=== PATIENT | male | born 1940 | race Caucasian/White ===

== ENCOUNTER → 2020-06-07 13:10 | Outpatient (BNVA) | payer MEDICARE, OTHER, SELFPAY | PROVIDERS: PCP Internal Medicine; Visit Provider Internal Medicine | DX: I48.20 Chronic atrial fibrillation, unspecified (principal); Z51.81 Encounter for therapeutic drug level monitoring; Z79.01 Long term (current) use of anticoagulants | CPT/HCPCS: 85610; 99211 ==

== ENCOUNTER → 2020-06-21 10:23 | Outpatient (BNVA) | payer MEDICARE, OTHER, SELFPAY | PROVIDERS: PCP Internal Medicine; Visit Provider Internal Medicine | DX: I48.20 Chronic atrial fibrillation, unspecified (principal); Z51.81 Encounter for therapeutic drug level monitoring; Z79.01 Long term (current) use of anticoagulants | CPT/HCPCS: 85610; 99211 ==

== ENCOUNTER → 2020-06-25 09:52 | Outpatient (BNVA) | payer MEDICARE, OTHER, SELFPAY | PROVIDERS: PCP Internal Medicine; Referring Provider Internal Medicine; Visit Provider Internal Medicine | DX: I48.20 Chronic atrial fibrillation, unspecified (principal); Z51.81 Encounter for therapeutic drug level monitoring; Z79.01 Long term (current) use of anticoagulants | CPT/HCPCS: 85610; 99211 ==

== ENCOUNTER → 2020-07-02 11:29 | Outpatient (BNVA) | payer MEDICARE, OTHER, SELFPAY | PROVIDERS: PCP Internal Medicine; Referring Provider Internal Medicine; Visit Provider Internal Medicine | DX: I48.20 Chronic atrial fibrillation, unspecified (principal); Z51.81 Encounter for therapeutic drug level monitoring; Z79.01 Long term (current) use of anticoagulants | CPT/HCPCS: 85610; 99211 ==

== ENCOUNTER → 2020-07-09 11:17 | Outpatient (BNVA) | payer MEDICARE, OTHER, SELFPAY | PROVIDERS: PCP Internal Medicine; Visit Provider Internal Medicine | DX: I48.20 Chronic atrial fibrillation, unspecified (principal); Z51.81 Encounter for therapeutic drug level monitoring; Z79.01 Long term (current) use of anticoagulants | CPT/HCPCS: 85610; 99211 ==

== ENCOUNTER → 2020-07-23 11:39 | Outpatient (BNVA) | payer MEDICARE, SELFPAY | PROVIDERS: PCP Internal Medicine; Referring Provider Internal Medicine; Visit Provider Internal Medicine | DX: I48.20 Chronic atrial fibrillation, unspecified (principal); Z51.81 Encounter for therapeutic drug level monitoring; Z79.01 Long term (current) use of anticoagulants | CPT/HCPCS: 85610; 99211 ==

== ENCOUNTER → 2020-08-06 10:56 | Outpatient (BNVA) | payer MEDICARE, SELFPAY | PROVIDERS: PCP Internal Medicine; Visit Provider Internal Medicine | DX: I48.91 Unspecified atrial fibrillation (principal); Z51.81 Encounter for therapeutic drug level monitoring; Z79.01 Long term (current) use of anticoagulants | CPT/HCPCS: 85610; 99211 ==

== ENCOUNTER → 2020-08-13 11:26 | Outpatient (BNVA) | payer MEDICARE, OTHER, SELFPAY | PROVIDERS: PCP Internal Medicine; Visit Provider Internal Medicine | DX: I48.0 Paroxysmal atrial fibrillation (principal); Z51.81 Encounter for therapeutic drug level monitoring; Z79.01 Long term (current) use of anticoagulants | CPT/HCPCS: 85610; 99211 ==

== ENCOUNTER → 2020-08-20 11:42 | Outpatient (BNVA) | payer MEDICARE, OTHER, SELFPAY | PROVIDERS: PCP Internal Medicine; Visit Provider Internal Medicine | DX: I48.0 Paroxysmal atrial fibrillation (principal); Z51.81 Encounter for therapeutic drug level monitoring; Z79.01 Long term (current) use of anticoagulants | CPT/HCPCS: 85610; 99211 ==

== ENCOUNTER → 2020-08-30 11:29 | Outpatient (BNVA) | payer MEDICARE, OTHER, SELFPAY | PROVIDERS: PCP Internal Medicine; Visit Provider Internal Medicine | DX: I48.0 Paroxysmal atrial fibrillation (principal); Z51.81 Encounter for therapeutic drug level monitoring; Z79.01 Long term (current) use of anticoagulants | CPT/HCPCS: 85610; 99211 ==

== ENCOUNTER → 2020-09-10 11:19 | Outpatient (BNVA) | payer MEDICARE, SELFPAY | PROVIDERS: PCP Internal Medicine; Visit Provider Internal Medicine | DX: I48.91 Unspecified atrial fibrillation (principal); Z79.01 Long term (current) use of anticoagulants; Z51.81 Encounter for therapeutic drug level monitoring | CPT/HCPCS: 85610; 99211 ==

== ENCOUNTER → 2020-09-24 11:12 | Outpatient (BNVA) | payer MEDICARE, SELFPAY | PROVIDERS: PCP Internal Medicine; Visit Provider Internal Medicine | DX: I48.0 Paroxysmal atrial fibrillation (principal); Z79.01 Long term (current) use of anticoagulants; Z51.81 Encounter for therapeutic drug level monitoring | CPT/HCPCS: 85610; 99211 ==

== ENCOUNTER → 2020-10-08 11:11 | Outpatient (BNVA) | payer MEDICARE, SELFPAY | PROVIDERS: PCP Internal Medicine; Visit Provider Internal Medicine | DX: I48.0 Paroxysmal atrial fibrillation (principal); Z51.81 Encounter for therapeutic drug level monitoring; Z79.01 Long term (current) use of anticoagulants | CPT/HCPCS: 85610; 99211 ==

== ENCOUNTER → 2020-10-19 11:25 | Outpatient (BNVA) | payer MEDICARE, SELFPAY | PROVIDERS: PCP Internal Medicine; Visit Provider Internal Medicine | DX: I48.0 Paroxysmal atrial fibrillation (principal); Z51.81 Encounter for therapeutic drug level monitoring; Z79.01 Long term (current) use of anticoagulants | CPT/HCPCS: 85610; 99211 ==

== ENCOUNTER → 2020-11-01 11:30 | Outpatient (BNVA) | payer MEDICARE, SELFPAY | PROVIDERS: PCP Internal Medicine; Visit Provider Internal Medicine | DX: I48.0 Paroxysmal atrial fibrillation (principal); Z51.81 Encounter for therapeutic drug level monitoring; Z79.01 Long term (current) use of anticoagulants | CPT/HCPCS: 85610; 99211 ==

== ENCOUNTER → 2020-11-15 11:05 | Outpatient (BNVA) | payer MEDICARE, SELFPAY | PROVIDERS: PCP Internal Medicine; Visit Provider Internal Medicine | DX: I48.0 Paroxysmal atrial fibrillation (principal); Z51.81 Encounter for therapeutic drug level monitoring; Z79.01 Long term (current) use of anticoagulants | CPT/HCPCS: 85610; 99211 ==

== ENCOUNTER → 2020-11-27 11:08 | Outpatient (BNVA) | payer MEDICARE, SELFPAY | PROVIDERS: PCP Internal Medicine; Visit Provider Internal Medicine | DX: I48.0 Paroxysmal atrial fibrillation (principal); Z51.81 Encounter for therapeutic drug level monitoring; Z79.01 Long term (current) use of anticoagulants | CPT/HCPCS: 85610; 99211 ==

== ENCOUNTER → 2020-12-03 10:31 | Outpatient (BNVA) | payer MEDICARE, SELFPAY | PROVIDERS: PCP Internal Medicine; Visit Provider Internal Medicine | DX: I48.0 Paroxysmal atrial fibrillation (principal); Z79.01 Long term (current) use of anticoagulants; Z51.81 Encounter for therapeutic drug level monitoring | CPT/HCPCS: 85610; 99211 ==

== ENCOUNTER → 2020-12-11 10:20 | Outpatient (BNVA) | payer MEDICARE, SELFPAY | PROVIDERS: PCP Internal Medicine; Visit Provider Internal Medicine | DX: I48.0 Paroxysmal atrial fibrillation (principal); Z79.01 Long term (current) use of anticoagulants; Z51.81 Encounter for therapeutic drug level monitoring | CPT/HCPCS: 85610; 99211 ==

== ENCOUNTER 2020-12-13 13:11 | Outpatient (REF) | payer MEDICARE, SELFPAY ==
[2020-12-13 13:48] LABS: MANUAL DIFF FLAG NO
[2020-12-13 13:55] LABS: Basophils Absolute Auto 0.1 X10*3/uL (0.0-0.2); Basophils Percent Auto 0.6 % (0-2); Eosinophils Absolute Auto 0.5 X10*3/uL (0.0-0.4); Eosinophils Percent Auto 5.5 % (0-4); Hematocrit 32.6 % (42-52); Hemoglobin 10.5 g/dl (14.0-18.0); Imm Gran Abs Auto 0.03 X10*3/uL (0.00-0.03); Imm Gran Pct Auto 0.3 % (0.0-0.4); Immature Retic Fraction 8.8 % (2.3-13.4); Lymphocytes Absolute Auto 2.6 X10*3/uL (1.2-4.9); Lymphocytes Percent Auto 27.9 % (20-40); Mean Corpuscular HGB Conc 32.2 g/dl (31.0-36.0); Mean Corpuscular Hemoglobin 29.8 pg (27.0-33.0); Mean Corpuscular Volume 92.6 fL (80-98); Mean Platelet Volume 11.2 fL (9.4-12.4); Monocytes Absolute Auto 0.8 X10*3/uL (0.1-1.2); Monocytes Percent Auto 8.3 % (2-11); Neutrophils Absolute Auto 5.3 X10*3/uL (2.0-8.3); Neutrophils Percent Auto 57.4 % (45-73); Platelet Count 250 X10*3/uL (160-400); Red Blood Count 3.52 X10*6/uL (4.60-5.80); Red Cell Distribution Width 13.4 % (11.0-16.0); Retic HGB Equivalent 35.5 pg (30.0-35.0); Reticulocyte Percent 1.4 % (0.5-1.8); White Blood Count 9.2 X10*3/uL (4.8-10.8)
[2020-12-13 14:24] LABS: Alanine Aminotransferase 62 U/L (0-40); Albumin Level 3.9 g/dL (3.5-5.0); Alkaline Phosphatase 72 U/L (39-117); Anion Gap 12 (12-20); Aspartate Amino Transferase 50 U/L (5-37); Bilirubin Total 0.4 mg/dL (0.0-1.0); Blood Urea Nitrogen 18 mg/dL (9-16); Calcium 8.5 mg/dL (8.4-10.2); Carbon Dioxide 23 mmol/L (22-29); Chloride 109 mmol/L (96-108); Cholesterol 91 mg/dL; Estimated Glomerular Filt Rate > 60; Glucose Random 123 mg/dL (60-115); HDL Cholesterol 30 mg/dL; Iron 49 mcg/dL (45-160); LDL Cholesterol Calculated 34 mg/dl; Percent Iron Saturation 21 % (15-50); Potassium 4.2 mmol/L (3.3-5.1); Sodium 140 mmol/L (135-145); Total Iron Binding Capacity 231 mcg/dL (228-428); Total Protein 6.8 g/dL (6.5-8.0); Triglycerides 137 mg/dL; Unsaturated Iron Binding 182 ug/dL
[2020-12-13 14:40] LABS: Ferritin 324 ng/mL (20-250); Free T4 (Free Thyroxine) 0.93 ng/dL (0.71-1.85); Thyroid Stimulating Hormone 0.96 uIU/mL (0.32-4.0)
[2020-12-13 14:53] LABS: Folate > 20.0 ng/mL (> or = 4.0); Vitamin B12 393 pg/mL (200-900)
== END 2020-12-13 13:12 | disposition home or self-care (01) ==
LOC: HO.LAB 13:11
PROVIDERS: PCP Internal Medicine; Visit Provider Internal Medicine
DX: I10 Essential (primary) hypertension (principal); I48.0 Paroxysmal atrial fibrillation; E78.00 Pure hypercholesterolemia, unspecified
CPT/HCPCS: 36415; 80053; 80061; 82607; 82728; 82746; 83540; 84439; 84443; 85025; 85045

== ENCOUNTER → 2020-12-25 10:47 | Outpatient (BNVA) | payer MEDICARE, SELFPAY | PROVIDERS: PCP Internal Medicine; Visit Provider Internal Medicine | DX: I48.0 Paroxysmal atrial fibrillation (principal); Z51.81 Encounter for therapeutic drug level monitoring; Z79.01 Long term (current) use of anticoagulants | CPT/HCPCS: 85610; 99211 ==

== ENCOUNTER → 2021-01-14 11:21 | Outpatient (BNVA) | payer MEDICARE, SELFPAY | PROVIDERS: PCP Internal Medicine; Visit Provider Internal Medicine | DX: I48.0 Paroxysmal atrial fibrillation (principal); Z51.81 Encounter for therapeutic drug level monitoring; Z79.01 Long term (current) use of anticoagulants | CPT/HCPCS: 85610; 99211 ==

== ENCOUNTER 2021-01-15 08:49 | Outpatient (REF) | payer MEDICARE, SELFPAY ==
--- NOTE | ~2021-01-15 | US_ITS ---
EXAMINATION: US ABDOMEN COMPLETE CLINICAL INFORMATION: Other specific abnormal findings of blood chemistry. COMPARISON: Ultrasound aorta 12/28/2019. X-ray abdomen KUB 12/12/2016. Ultrasound abdomen 09/25/2015 and 03/07/2010. CT abdomen and pelvis 12/09/2013. TECHNIQUE: Real-time imaging of the abdominal viscera. FINDINGS: PANCREAS: Not well visualized due to bowel gas ABDOMINAL AORTA: The upper and mid abdominal aorta is non-well visualized due to bowel gas. There is a distal abdominal aortic aneurysm that measures 4.5 x 4.6 cm in AP and transverse dimension not appreciably changed in size. There is dilatation of both iliac arteries measuring 1.7 x 2 cm on the left and 0.9 x 2 cm on the right. INFERIOR VENA CAVA: Not well visualized due to bowel gas LIVER: The liver is not well visualized. Particular, the left lobe of the liver is not well visualized. The liver is normal in size. The liver contour is normal. No focal hepatic lesion. There is no intrahepatic biliary duct dilatation seen. GALLBLADDER: Not well-visualized. No gallstones are seen. COMMON BILE DUCT: Normal in caliber measuring 0.2 cm in diameter. RIGHT KIDNEY: Normal. No hydronephrosis. No renal calculi or focal parenchymal lesions. The kidney measures 9.0 cm in maximum dimension. LEFT KIDNEY: Not well visualized.. No hydronephrosis. No renal calculi or focal parenchymal lesions. The kidney measures 10.8 cm in maximum dimension. SPLEEN: Normal. The spleen measures 10.4 cm in maximum dimension. FREE FLUID: None. US/US abdomen complete IMPRESSION: Very limited exam. Only the right kidney and spleen are well visualized. 4.5 x 4.6 cm aneurysm of the distal abdominal aorta not appreciably changed from most recent exam November 2019.
== END 2021-01-15 08:50 | disposition home or self-care (01) ==
LOC: HO.HMGCX 08:49
PROVIDERS: Visit Provider Internal Medicine
DX: R94.5 Abnormal results of liver function studies (principal); R79.89 Other specified abnormal findings of blood chemistry
CPT/HCPCS: 76700

== ENCOUNTER → 2021-02-06 10:20 | Outpatient (BNVA) | payer MEDICARE, SELFPAY | PROVIDERS: PCP Internal Medicine; Visit Provider Internal Medicine | DX: I48.0 Paroxysmal atrial fibrillation (principal); Z51.81 Encounter for therapeutic drug level monitoring; Z79.01 Long term (current) use of anticoagulants | CPT/HCPCS: 85610; 99211 ==

== ENCOUNTER → 2021-02-27 10:54 | Outpatient (BNVA) | payer MEDICARE, SELFPAY | PROVIDERS: PCP Internal Medicine; Visit Provider Internal Medicine | DX: I48.0 Paroxysmal atrial fibrillation (principal); Z51.81 Encounter for therapeutic drug level monitoring; Z79.01 Long term (current) use of anticoagulants | CPT/HCPCS: 85610; 99211 ==

== ENCOUNTER → 2021-03-07 10:49 | Outpatient (BNVA) | payer MEDICARE, SELFPAY | PROVIDERS: PCP Internal Medicine; Visit Provider Internal Medicine | DX: I48.0 Paroxysmal atrial fibrillation (principal); Z51.81 Encounter for therapeutic drug level monitoring; Z79.01 Long term (current) use of anticoagulants | CPT/HCPCS: 85610; 99211 ==

== ENCOUNTER → 2021-03-14 11:49 | Outpatient (BNVA) | payer MEDICARE, SELFPAY | PROVIDERS: PCP Internal Medicine; Visit Provider Internal Medicine | DX: I48.0 Paroxysmal atrial fibrillation (principal); Z51.81 Encounter for therapeutic drug level monitoring; Z79.01 Long term (current) use of anticoagulants | CPT/HCPCS: 85610; 99211 ==

== ENCOUNTER → 2021-03-28 11:35 | Outpatient (BNVA) | payer MEDICARE, SELFPAY | PROVIDERS: PCP Internal Medicine; Visit Provider Internal Medicine | DX: I48.0 Paroxysmal atrial fibrillation (principal); Z79.01 Long term (current) use of anticoagulants; Z51.81 Encounter for therapeutic drug level monitoring | CPT/HCPCS: 85610; 99212 ==

== ENCOUNTER → 2021-04-02 10:53 | Outpatient (BNVA) | payer MEDICARE, SELFPAY | PROVIDERS: PCP Internal Medicine; Visit Provider Internal Medicine | DX: I48.0 Paroxysmal atrial fibrillation (principal); Z51.81 Encounter for therapeutic drug level monitoring; Z79.01 Long term (current) use of anticoagulants | CPT/HCPCS: 85610; 99211 ==

== ENCOUNTER → 2021-04-09 10:44 | Outpatient (BNVA) | payer MEDICARE, SELFPAY | PROVIDERS: PCP Internal Medicine; Visit Provider Internal Medicine | DX: I48.0 Paroxysmal atrial fibrillation (principal); Z79.01 Long term (current) use of anticoagulants; Z51.81 Encounter for therapeutic drug level monitoring | CPT/HCPCS: 85610; 99211 ==

== ENCOUNTER → 2021-04-18 10:31 | Outpatient (BNVA) | payer MEDICARE, SELFPAY | PROVIDERS: PCP Internal Medicine; Visit Provider Internal Medicine | DX: I48.0 Paroxysmal atrial fibrillation (principal); Z51.81 Encounter for therapeutic drug level monitoring; Z79.01 Long term (current) use of anticoagulants | CPT/HCPCS: 85610; 99211 ==

== ENCOUNTER → 2021-04-25 10:24 | Outpatient (BNVA) | payer MEDICARE, SELFPAY | PROVIDERS: PCP Internal Medicine; Visit Provider Internal Medicine | DX: I48.0 Paroxysmal atrial fibrillation (principal); Z51.81 Encounter for therapeutic drug level monitoring; Z79.01 Long term (current) use of anticoagulants | CPT/HCPCS: 85610; 99211 ==

== ENCOUNTER → 2021-05-07 11:16 | Outpatient (BNVA) | payer MEDICARE, SELFPAY | PROVIDERS: PCP Internal Medicine; Visit Provider Internal Medicine | DX: I48.0 Paroxysmal atrial fibrillation (principal); Z51.81 Encounter for therapeutic drug level monitoring; Z79.01 Long term (current) use of anticoagulants | CPT/HCPCS: 85610; 99211 ==

== ENCOUNTER → 2021-06-05 11:48 | Outpatient (BNVA) | payer MEDICARE, SELFPAY | PROVIDERS: PCP Internal Medicine; Visit Provider Internal Medicine | DX: I48.0 Paroxysmal atrial fibrillation (principal); Z51.81 Encounter for therapeutic drug level monitoring; Z79.01 Long term (current) use of anticoagulants | CPT/HCPCS: 85610; 99211 ==

== ENCOUNTER → 2021-06-13 10:22 | Outpatient (BNVA) | payer MEDICARE, SELFPAY | PROVIDERS: PCP Internal Medicine; Visit Provider Internal Medicine | DX: I48.0 Paroxysmal atrial fibrillation (principal); Z51.81 Encounter for therapeutic drug level monitoring; Z79.01 Long term (current) use of anticoagulants | CPT/HCPCS: 85610; 99211 ==

== ENCOUNTER → 2021-06-20 10:23 | Outpatient (BNVA) | payer MEDICARE, SELFPAY | PROVIDERS: PCP Internal Medicine; Visit Provider Internal Medicine | DX: I48.0 Paroxysmal atrial fibrillation (principal); Z51.81 Encounter for therapeutic drug level monitoring; Z79.01 Long term (current) use of anticoagulants | CPT/HCPCS: 85610; 99211 ==

== ENCOUNTER → 2021-06-27 10:20 | Outpatient (BNVA) | payer MEDICARE, SELFPAY | PROVIDERS: PCP Internal Medicine; Visit Provider Internal Medicine | DX: I48.0 Paroxysmal atrial fibrillation (principal); Z51.81 Encounter for therapeutic drug level monitoring; Z79.01 Long term (current) use of anticoagulants | CPT/HCPCS: 85610; 99211 ==

== ENCOUNTER → 2021-07-11 11:05 | Outpatient (BNVA) | payer MEDICARE, SELFPAY | PROVIDERS: PCP Internal Medicine; Visit Provider Internal Medicine | DX: I48.0 Paroxysmal atrial fibrillation (principal); Z79.01 Long term (current) use of anticoagulants; Z51.81 Encounter for therapeutic drug level monitoring | CPT/HCPCS: 85610; 99211 ==

== ENCOUNTER 2021-07-17 11:02 | Outpatient (REF) | payer MEDICARE, OTHER, SELFPAY ==
--- NOTE | ~2021-07-17 | XR_ITS ---
EXAMINATION: XR RIBS, LEFT CLINICAL INFORMATION: Chest pain COMPARISON: 07/21/2019 TECHNIQUE: Chest, PA view Left ribs, 3 views FINDINGS: Lungs are well expanded. The patient's chin overlies the lung apices. Mild interstitial prominence in both lungs is a chronic finding. No acute pulmonary abnormality. No consolidation, pleural effusion or pneumothorax. Cardiac silhouette is normal in size. Atherosclerotic aortic arch is uncoiled. Bones are diffusely osteopenic. A few old, healed left rib fractures are noted. Also, there is an acute, mildly displaced fracture of the left lateral sixth rib. There appears to be an old, mild compression fracture of the T11 vertebral body. There appears to be chronic, minimal height loss of several other vertebra in the thoracolumbar spine. Atherosclerotic calcification of the aorta and splenic artery. The patient has a known abdominal aortic aneurysm. On these radiographs, the infrarenal abdominal aorta aneurysm measures up to approximately 5.8 cm transverse diameter, which is larger than the reported size on ultrasound from 12/28/2019. XR/XR ribs LT min 3V w CXR1V IMPRESSION: * There appears to be chronic, mild interstitial lung disease. No acute pulmonary abnormality. * Bones are diffusely osteopenic, and there is old mild compression fracture of the T11 vertebral body. * Acute, mildly displaced fracture of the left lateral sixth rib. * The abdominal aorta aneurysm is larger on these radiographs than reported on ultrasound from 12/28/2019. Therefore, consider follow-up abdominal aorta ultrasound evaluation. If the aneurysm is found to be greater than 5.5 cm on follow-up ultrasound, then recommend referral to a vascular specialist.
[2021-07-17 11:18] LABS: MANUAL DIFF FLAG NO
[2021-07-17 11:55] LABS: Basophils Absolute Auto 0.1 X10*3/uL (0.0-0.2); Basophils Percent Auto 0.5 % (0-2); Eosinophils Absolute Auto 0.2 X10*3/uL (0.0-0.4); Eosinophils Percent Auto 2.3 % (0-4); Hemoglobin 11.4 g/dl (14.0-18.0); Imm Gran Abs Auto 0.03 X10*3/uL (0.00-0.03); Imm Gran Pct Auto 0.3 % (0.0-0.4); Lymphocytes Absolute Auto 1.8 X10*3/uL (1.2-4.9); Lymphocytes Percent Auto 19.1 % (20-40); Mean Corpuscular HGB Conc 33.5 g/dl (31.0-36.0); Mean Corpuscular Volume 92.4 fL (80.0-98.0); Mean Platelet Volume 11.4 fL (9.4-12.4); Monocytes Absolute Auto 0.7 X10*3/uL (0.1-1.2); Monocytes Percent Auto 7.6 % (2-11); Neutrophils Absolute Auto 6.6 x10*3/uL (2.0-8.3); Neutrophils Percent Auto 70.2 % (45-73); Platelet Count 163 X10*3/uL (160-400); Red Blood Count 3.68 X10*6/uL (4.60-5.80); Red Cell Distribution Width 13.8 % (11.0-16.0); White Blood Count 9.4 X10*3/uL (4.8-10.8)
[2021-07-17 12:23] LABS: Alanine Aminotransferase 18 U/L (0-40); Alkaline Phosphatase 74 U/L (39-117); Anion Gap 14 (12-20); Aspartate Amino Transferase 20 U/L (5-37); Bilirubin Total 0.4 mg/dL (0.0-1.0); Blood Urea Nitrogen 22 mg/dL (9-16); Calcium 8.9 mg/dL (8.4-10.2); Carbon Dioxide 27 mmol/L (22-29); Chloride 105 mmol/L (96-108); Cholesterol 104 mg/dL; Estimated Glomerular Filt Rate 54; Glucose Random 106 mg/dL (60-115); HDL Cholesterol 45 mg/dL; LDL Cholesterol Calculated 38 mg/dl; Potassium 3.8 mmol/L (3.3-5.1); Sodium 142 mmol/L (135-145); Total Protein 6.9 g/dL (6.5-8.0); Triglycerides 107 mg/dL
[2021-07-17 12:39] LABS: HBsAGNum1 0.15 S/CO (0.00-0.99); Hepatitis B Surface Antigen Negative (Negative); ~HepC Num1 0.05 S/CO (0.00-0.79); ~Hepatitis C Antibody Nonreactive (Nonreactive)
[2021-07-17 12:41] LABS: Estimated Average Glucose 103 mg/dL; Hemoglobin A1c % 5.2 %
[2021-07-17 12:45] LABS: Thyroid Stimulating Hormone 2.14 uIU/mL (0.32-4.0)
[2021-07-17 12:49] LABS: HBS Num1 0.15 mIU/mL (0-7.99); HBc Num1 0.07 S/CO (0.00-0.79); Hepatitis B Core Antibody Nonreactive (Nonreactive); ~Hepatitis B Surface Antibody NONREACTIVE (Nonreactive)
[2021-07-17 13:27] LABS: Folate 18.8 ng/mL (> or = 4.0); Vitamin B12 509 pg/mL (200-900)
== END 2021-07-17 11:03 | disposition home or self-care (01) ==
LOC: HO.XRAY 11:02
PROVIDERS: PCP Internal Medicine; Visit Provider Internal Medicine
DX: R07.9 Chest pain, unspecified (principal); I48.0 Paroxysmal atrial fibrillation; E78.00 Pure hypercholesterolemia, unspecified; R79.89 Other specified abnormal findings of blood chemistry; I10 Essential (primary) hypertension; I25.10 Atherosclerotic heart disease of native coronary artery without angina pectoris; R94.5 Abnormal results of liver function studies
CPT/HCPCS: 36415; 71101; 80053; 80061; 82607; 82746; 83036; 84443; 85025; 86704; 86706; 86803; 87340

== ENCOUNTER 2021-07-19 12:02 | Emergency (ER) | payer MEDICARE, SELFPAY ==
--- NOTE | ~2021-07-19 | XR_ITS ---
EXAMINATION: XR CHEST CLINICAL INFORMATION: Cough COMPARISON: July 17, 2021 and studies dating back to December 17, 2018 TECHNIQUE: 2 views of the chest were obtained. FINDINGS: No significant acute abnormality is noted involving the heart, lungs, mediastinum, bony thorax or soft tissues. There is some mild chronic wedging of a lower thoracic vertebra. XR/XR chest 2V IMPRESSION: No acute disease.
--- NOTE | ~2021-07-19 | US_ITS ---
EXAMINATION: US RETROPERITONEAL LIMITED (AORTA) CLINICAL INFORMATION: Fall. Dizziness. Evaluate abdominal aortic aneurysm.. COMPARISON: Ultrasound 12/28/2019 TECHNIQUE: Sharma-scale, color Doppler and spectral Doppler evaluation of the abdominal aorta. The study is significantly technically limited secondary to bowel gas. FINDINGS: The proximal and mid portions of the aorta are not visualized. Only the distal, aneurysmal portion of the aorta is visualized. Distal: 5 x 5.2 cm, previously 4.7 x 5 cm The measurements of the common iliac arteries in maximum AP and TRV dimensions are as follows: Right Common Iliac Artery: 1 x 1.8 cm, previously 1 x 1.2 cm Left Common Iliac Artery: 1.1 x 1.7 cm, previously 1.2 x 1 cm. US/US abdominal aortic aneurysm IMPRESSION: Severely limited study. Distal abdominal aortic aneurysm measures 5 x 5.2 cm, previously 4.7 x 5 cm. The common iliac arteries have increased in caliber as well.
[2021-07-19 12:06] VITALS: BP 134/51; PULSE 76; RESP 18; TEMP 36.3; O2SAT 95; BMI 25.1
--- NOTE | 2021-07-19 12:18 | PC.NURSE ---
after triage pt mentions productive cough.
--- NOTE | 2021-07-19 13:09 | ED.GENADULT ---
HPI - General Adult General Chief complaint: Fall Stated complaint: aneurism pcp wants ultrasound Time Seen by Provider: 07/19/21 12:52 Source: patient Mode of arrival: ambulatory Limitations: no limitations History of Present Illness HPI narrative: 81 y/o male with history of paroxysmal afib on Coumadin, CAD s/p TN, hx CVA, HTN, HLD, hx left hip fracture, hx UTIs, hx AAA (4.5x4.6 in December) who presents to the ER from home for evaluation of his known AAA. He reportedly had a fall on 07/09 onto his left side in the middle of the night after he was dizzy when he stood up. He refused to go to the ER for evaluation. He reports intermittent middle back pain that has been ongoing for months. His PCP requested he come to the ER for ultrasound of his known AAA. Last had U/S done in December. Patient denies all other physical complaints except for a dry cough that started yesterday. He smells strongly of urine. He denies any dysuria, N/V/D or abdominal pain. Family reports he does not drink enough water. No fevers at home. No SOB, chest pain or BRUCE. He is vaccinated for COVID-19 and due to his booster. complaint: cough and abd U/S Onset (ago): day(s) Location: chest and abdomen Radiation: non-radiation Severity: mild Pain Consistency: intermittent Relieving factors: none Exacerbating factors: none Associated symptoms: denies other symptoms Treatments prior to arrival: none Related Data Home Medications Medication Instructions Recorded Confirmed cyanocobalamin (vitamin B-12) 1,000 mcg PO DAILY 06/22/20 06/20/21 1,000 mcg capsule sennosides 8.6 mg tablet (Natural 8.6 mg PO DAILY PRN 06/22/20 06/20/21 Senna Laxative) omeprazole 20 mg capsule,delayed 20 mg PO .PRN cap 02/06/21 06/20/21 release prevagen PO 06/13/21 06/20/21 Previous Rx's Medication Instructions Recorded tamsulosin 0.4 mg capsule 0.4 mg PO DAILY #30 cap 11/01/20 atenolol 25 mg tablet 25 mg PO DAILY 90 Days #90 tab 01/04/21 ezetimibe 10 mg tablet 10 mg PO DAILY 90 Days #90 tab 01/04/21 folic acid 1 mg tablet 1 mg PO DAILY #30 cap 02/03/21 rosuvastatin 40 mg tablet 40 mg PO DAILY #30 tab 02/03/21 warfarin 5 mg tablet (Jantoven) 5 mg PO DAILY #90 cap 05/09/21 diclofenac sodium 1 % topical gel 4 g TOPICAL QID #100 g 05/27/21 (Arthritis Pain (diclofenac)) polyethylene glycol 3350 17 gram 17 g PO DAILY #100 ea 05/27/21 oral powder packet (Miralax) cholecalciferol (vitamin D3) 50 50 mcg PO DAILY #30 tab 06/18/21 mcg (2,000 unit) tablet mirtazapine 15 mg tablet 15 mg PO BEDTIME #30 cap 06/24/21 tramadol 50 mg tablet 50 mg PO BEDTIME PRN 30 Days #90 07/17/21 tab cefuroxime axetil 250 mg tablet 250 mg PO BID 7 Days #14 tab 07/19/21 Allergies Allergy/AdvReac Type Severity Reaction Status Date / Time No Known Allergies Allergy Verified 07/19/21 12:06 [No Known Allergies*] Review of Systems Review of Systems: Constitutional: No Fever, No Chills ENT/Mouth: No sore throat, No Rhinorrhea, No Swallowing Difficulty Cardiovascular: No Chest Pain, No SOB, No Orthopnea, No Edema Respiratory: + Cough, No Sputum, No Wheezing, No dyspnea Gastrointestinal: No Nausea, No Vomiting, No Diarrhea, No abdominal Pain Genitourinary: No Dysuria, No Urinary Frequency, No Hematuria Musculoskeletal: + joint pain, +Myalgias Skin: No Skin Lesions, No rash Neuro: + Weakness (mild, generalized per family), No Numbness, No Dizziness, No Headache Psych: No Anxiety/Panic, No Depression Heme/Lymph: No Bruising, No Lymphadenopathy Endocrine: No Polyuria, No Polydipsia FORMERLY [facility], 1928–1983 Past Medical History Medical History (Updated 07/19/21 @ 16:10 by GRACE León) Abdominal aortic aneurysm Acetabular fracture Anxiety and depression Coronary artery disease CVA (cerebral vascular accident) GERD (gastroesophageal reflux disease) Hypercholesterolemia Hypertension Interstitial lung disease Knee osteoarthritis Paroxysmal A-fib Tubular adenoma of colon Ulnar neuropathy Vertebral fracture Surgical History History of appendectomy History of bilateral cataract extraction History of bursectomy History of hemorrhoidectomy Family History Family History (Updated 06/21/20 @ 10:36 by DAVE Laboy) Father Medical history unknown Mother Medical history unknown Social History Social History (Updated 12/12/20 @ 12:29 by Vale Cohen CMA) Housing: House Alcohol intake: current Alcohol intake frequency: holidays/special occasions only Patient Tobacco Use Status: Never used Tobacco e-Cigarette/Vaping Use: Never Used Second Hand Smoke Exposure: No Advance Directives: No Advance Directives Information Provided: No Current occupational status: retired Physical Exam Vital Signs: Vital Signs: Last Vital Signs Temp 97.3 F 07/19/21 12:06 Pulse 76 07/19/21 12:06 Resp 18 07/19/21 12:06 BP 134/51 L 07/19/21 12:06 Pulse Ox 95 07/19/21 12:06 Body Mass Index 25.1 Appearance: Alert elderly male sitting on the stretcher, kyphotic. Oriented X3. No acute distress. Smells strongly of urine Eyes: Pupils equal, round and reactive to light. ENT: Pharynx normal. Neck: Normal inspection. Neck supple. CVS: Normal heart rate and rhythm. Pulses normal. Respiratory: No respiratory distress. Breath sounds normal. Abdomen: Soft and nontender. No palpable pulsitile mass. Femoral pulses are equal. +BS x4. No flank ecchymosis Skin: Skin warm and dry. Normal skin color. Normal skin turgor. No rashes. Extremities: No lower extremity edema. Neuro: Oriented X 3. No motor deficit. No sensory deficit. Ambulates with slow but steady gait. Course Course Course Narrative: 81 y/o male with history of afib on coumadin, AAA, hx UTIs, GERD, HTN, OA who presents 10 days s/p fall with dry cough. PCP requesting AAA U/S to monitor known AAA. He has no abdominal pain, chest pain, no flank pain. No dizziness or current pain. Main complaint is dry cough. CXR ordered as well as COVID swab and AAA U/S. His femoral pulses are 2+ and equal, doubt dissection. Will hold off on CT head given his fall was 10 days ago. Family denies any mental status changes and he denies headache. Reevaluation(s) Reevaluation #1: AAA study is limited but showing enlarging aneurysm - 5 x5.2 now. He has a vascular surgeon who he follows with but cannot recall the name. No indication for emergent consultation. At this time he is stable for discharge home with outpatient follow up. His UA was positive for infection. Will treat with Ceftin x7 days. No fevers, abd pain, N/V. He is stable for d/c with his family. They will f/u with Dr. Germain. Discussed warning signs and symptoms that should prompt urgent return to the ER. They are agreeable with plan, comfortable with taking him home. Medical Decision Making Lab Data Labs: Lab Results 07/19/21 07/19/21 Range/Units 12:23 15:22 Urine Color YELLOW Urine Appearance CLEAR Urine pH 6.0 (5.0-8.0) Ur Specific [place] 1.025 (1.005-1.025) Urine Protein TRACE (NEG-TRACE) MG/DL Urine Glucose (UA) NEG (NEG) MG/DL Urine Ketones NEG (NEG) MG/DL Urine Blood 1+ H (NEG) Urine Nitrite POS H (NEG) Ur Leukocyte Esterase 1+ H (NEG) Urine RBC 1-4 (0) /HPF Urine WBC 15-29 H (0-4) /HPF Ur Squamous Epith Cells TRACE /LPF Urine Bacteria 3+ /LPF Influenza Type A (PCR) NEGATIVE (Negative) Influenza Type B (PCR) NEGATIVE (Negative) RSV RNA Qual (PCR) NEGATIVE (Negative) SARS-CoV-2 RNA (RT-PCR) NEGATIVE (Negative) Critical Care Time Critical Care Time Critical Care Time: No Discharge Plan Discharge Clinical Impression: Acute UTI AAA (abdominal aortic aneurysm) Qualifiers: Presence of rupture: without rupture Qualified Code(s): I71.4 - Abdominal aortic aneurysm, without rupture Patient Disposition: Home, Self-Care Instructions: Urinary Tract Infection in Men (ED), Nonruptured Abdominal Aortic Aneurysm (DC) Additional Instructions: Your urine test showed your have a UTI - take the prescribed antibiotic as directed. Start 1st thing tomorrow morning. You were given a dose in the ER this evening. Rest and stay hydrated, drink plenty of water. Your abdominal ultrasound showed distal abdominal aortic aneurysm measuring 5 x 5.2cm, previously 4.7 x 5cm Recommend following up with your Vascular Surgeon for this or follow up with the Vascular Surgeron here - name and number below. If you develop new or worsening symptoms call 911 or come back to the ER for further evaluation. Prescriptions: New cefuroxime axetil 250 mg tablet 250 mg PO BID 7 Days Qty: 14 RF: 0 No Action tamsulosin 0.4 mg capsule 0.4 mg PO DAILY Qty: 30 RF: 11 ezetimibe 10 mg tablet 10 mg PO DAILY 90 Days Qty: 90 RF: 2 atenolol 25 mg tablet 25 mg PO DAILY 90 Days Qty: 90 RF: 2 folic acid 1 mg tablet 1 mg PO DAILY Qty: 30 RF: 5 rosuvastatin 40 mg tablet 40 mg PO DAILY Qty: 30 RF: 5 warfarin [Jantoven] 5 mg tablet 5 mg PO DAILY Qty: 90 RF: 3 cholecalciferol (vitamin D3) 50 mcg (2,000 unit) tablet 50 mcg PO DAILY Qty: 30 RF: 11 mirtazapine 15 mg tablet 15 mg PO BEDTIME Qty: 30 RF: 5 tramadol 50 mg tablet 50 mg PO BEDTIME PRN (Reason: pain) 30 Days Qty: 90 RF: 1 sennosides [Natural Senna Laxative] 8.6 mg tablet 8.6 mg PO DAILY PRNRF: 0 cyanocobalamin (vitamin B-12) 1,000 mcg capsule 1,000 mcg PO DAILY RF: 0 polyethylene glycol 3350 [Miralax] 17 gram powder in packet 17 g PO DAILY Qty: 100 RF: 0 diclofenac sodium [Arthritis Pain (diclofenac)] 1 % gel 4 g topical QID Qty: 100 RF: 0 omeprazole 20 mg capsule,delayed release(DR/EC) 20 mg PO .PRN RF: 0 prevagen PO RF: 0 Referrals: Kamar Bhatia MD [Physician] - 1 week (5cm x 5.2cm distal AAA ) Po,Elver Jameson MD [Primary Care Provider] - 2 days (enlarging AAA, UTI) Interventions: ED Discharge Assessment Last Done: 07/19/21 16:47 Discharge Date/Time: 07/19/21 16:49
[2021-07-19 13:17] LABS: Influenza A PCR NEGATIVE (Negative); Influenza B PCR NEGATIVE (Negative); Resp Syncy Virus RNA Qual PCR NEGATIVE (Negative); SARS COV2 PCR INHOUSE NEGATIVE (Negative)
[2021-07-19 15:32] LABS: Appearance Urine CLEAR; Color Urine YELLOW; Glucose Urine UA NEG (NEG); Leukocyte Esterase Urine 1+ (NEG); Nitrite Urine POS (NEG); Specific Gravity - Urine 1.025 (1.005-1.025); UACC Culture Trigger YES; Urine Blood 1+ (NEG); Urine Ketones NEG (NEG); Urine Protein TRACE MG/DL (NEG-TRACE)
[2021-07-19 16:04] LABS: Bacteria Urine 3+ /LPF; Squamous Epithelial Cell Urine TRACE /LPF
== END 2021-07-19 16:49 | disposition home or self-care (01) ==
PROVIDERS: Physician Assistant; Emergency Provider Emergency Medicine; PCP Internal Medicine
DX: N30.00 Acute cystitis without hematuria (principal); I71.4 Abdominal aortic aneurysm, without rupture; R05.9 Cough, unspecified; Z20.822 Contact with and (suspected) exposure to COVID-19; I10 Essential (primary) hypertension; I48.0 Paroxysmal atrial fibrillation; I25.2 Old myocardial infarction; Z86.73 Personal history of transient ischemic attack (TIA), and cerebral infarction without residual deficits; Z79.01 Long term (current) use of anticoagulants
CPT/HCPCS: 0241U; 36415; 71046; 76706; 81001; 87086; 87088; 87186; 99282; 99284

== ENCOUNTER 2021-08-07 10:52 | Outpatient (REF) | payer MEDICARE, SELFPAY ==
[2021-08-07 12:03] LABS: Prothrombin Time 81.2 SEC (9.9-13.0)
[2021-08-07 12:05] LABS: INTERNATIONAL NORM RATIO 6.9 (0.9-1.1)
== END 2021-08-07 10:53 | disposition home or self-care (01) ==
LOC: HO.LAB 10:52
PROVIDERS: PCP Internal Medicine; Visit Provider Internal Medicine
DX: I48.0 Paroxysmal atrial fibrillation (principal); R05.9 Cough, unspecified; Z79.01 Long term (current) use of anticoagulants; Z51.81 Encounter for therapeutic drug level monitoring
CPT/HCPCS: 36415; 85610; 99212

== ENCOUNTER → 2021-08-09 09:18 | Outpatient (BNVA) | payer MEDICARE, SELFPAY | PROVIDERS: PCP Internal Medicine; Visit Provider Internal Medicine | DX: I48.0 Paroxysmal atrial fibrillation (principal); Z51.81 Encounter for therapeutic drug level monitoring; Z79.01 Long term (current) use of anticoagulants | CPT/HCPCS: 85610; 99211 ==

== ENCOUNTER 2021-08-11 15:11 | Inpatient (IN) | payer MEDICARE, SELFPAY ==
[2021-08-11 15:26] VITALS: BP 114/46; PULSE 64; RESP 18; TEMP 36.7; O2SAT 96; BMI 24.4
--- NOTE | 2021-08-11 15:27 | ED.CHESTPAIN ---
HPI - Chest Pain General Chief Complaint: Chest Pain Stated Complaint: chest pressure Time Seen by Provider: 08/11/21 15:27 Source: patient Mode of arrival: ambulatory Limitations: no limitations History of Present Illness HPI narrative: patient developed chest pain after eating eggs and ham. Worse with lying down complaint: chest pain Onset (ago): hour(s) Timing of current episode: episodic Onset: after eating Pain location: substernal and epigastric Pain radiation: none Severity: mild Quality: tightness Treatment prior to arrival: none Related Data Home Medications Medication Instructions Recorded Confirmed cyanocobalamin (vitamin B-12) 1,000 mcg PO DAILY 06/22/20 08/09/21 1,000 mcg capsule sennosides 8.6 mg tablet (Natural 8.6 mg PO DAILY PRN 06/22/20 08/09/21 Senna Laxative) omeprazole 20 mg capsule,delayed 20 mg PO .PRN cap 02/06/21 08/09/21 release prevagen PO 06/13/21 08/09/21 Previous Rx's Medication Instructions Recorded tamsulosin 0.4 mg capsule 0.4 mg PO DAILY #30 cap 11/01/20 atenolol 25 mg tablet 25 mg PO DAILY 90 Days #90 tab 01/04/21 ezetimibe 10 mg tablet 10 mg PO DAILY 90 Days #90 tab 01/04/21 folic acid 1 mg tablet 1 mg PO DAILY #30 cap 02/03/21 rosuvastatin 40 mg tablet 40 mg PO DAILY #30 tab 02/03/21 warfarin 5 mg tablet (Jantoven) 5 mg PO DAILY #90 cap 05/09/21 diclofenac sodium 1 % topical gel 4 g TOPICAL QID #100 g 05/27/21 (Arthritis Pain (diclofenac)) polyethylene glycol 3350 17 gram 17 g PO DAILY #100 ea 05/27/21 oral powder packet (Miralax) cholecalciferol (vitamin D3) 50 50 mcg PO DAILY #30 tab 06/18/21 mcg (2,000 unit) tablet mirtazapine 15 mg tablet 15 mg PO BEDTIME #30 cap 06/24/21 tramadol 50 mg tablet 50 mg PO BEDTIME PRN 30 Days #90 07/17/21 tab Allergies Allergy/AdvReac Type Severity Reaction Status Date / Time No Known Allergies Allergy Verified 08/09/21 09:31 [No Known Allergies*] Review of Systems Constitutional: Constitutional: Reports no additional constitutional complaints Eyes: Eyes: Reports no additional eye complaints ENT: Denies dizziness Cardiovascular: Cardiovascular: Reports no additional cardiovascular complaints Respiratory: Respiratory: Reports as per HPI Gastrointestinal: Gastrointestinal: Reports no additional gastrointestinal complaints Musculoskeletal: Musculoskeletal: Reports no additional musculoskeletal complaints Integumentary/Breasts: Skin/Breast: Denies rash Neurologic: Reports system reviewed and no additional complaints, except as documented, Denies dizziness and Denies Sensory deficit (Neuro) Psychiatric: Psychiatric: Denies anxiety [facility] Past Medical History Medical History Abdominal aortic aneurysm Acetabular fracture Anxiety and depression Coronary artery disease CVA (cerebral vascular accident) GERD (gastroesophageal reflux disease) Hypercholesterolemia Hypertension Interstitial lung disease Knee osteoarthritis Paroxysmal A-fib Tubular adenoma of colon Ulnar neuropathy Vertebral fracture Surgical History History of appendectomy History of bilateral cataract extraction History of bursectomy History of hemorrhoidectomy Family History Family History Father Medical history unknown Mother Medical history unknown Social History Social History Housing: House Alcohol intake: never Patient Tobacco Use Status: Never used Tobacco e-Cigarette/Vaping Use: Never Used Second Hand Smoke Exposure: No Use of substances other than those prescribed or required for medical reasons: No Advance Directives: No Advance Directives Information Provided: No Current occupational status: retired Physical Exam Vital Signs: Vital Signs: Last Vital Signs Temp 98.0 F 08/11/21 15:26 Pulse 64 08/11/21 15:26 Resp 18 08/11/21 15:26 BP 114/46 L 08/11/21 15:26 Pulse Ox 96 08/11/21 15:26 BMI result Body Mass Index 24.4 Const: Other: elderly frail male Nutritional Appearance: average body habitus Orientation/consciousness: oriented to person and patient oriented x3 Limitations: no limitations HENMT: Head: Yes normal to inspection Ears: external ears normal General nose exam: Normal external nose present Mouth: Normal oral and palatal mucosa present and oropharynx normal Throat: Yes posterior oropharynx normal Eyes: General: appearance normal, both eyes and all related structures Neck: Other: supple Neck: Yes normal visual inspection Chest: Chest palpation & inspection: normal inspection of the chest Resp: Auscultation: clear to auscultation bilaterally Cardio: Jugular venous distension: no JVD Rate: regular rate Rhythm: regular rhythm Heart sounds: S1 normal heart sound present and S2 normal heart sound present GI: Inspection: Yes normal to inspection Palpation (GI): Soft to palpation, nontender and No hepatosplenomegaly present Auscultation: normal bowel sounds : General: Yes no CVA tenderness Back/Spine/Pelvis: Back: no CVA tenderness Skin: General skin exam: no rashes or lesions noted Neuro: General: oriented to person and patient oriented x3 Cranial nerves: Yes CN's II-XII intact bilaterally Motor exam (neuro): 5/5 motor strength present throughout Sensory Exam: No Sensory deficit (Neuro) Extrem: General: Yes normal to inspection Psych: Appearance: grossly normal Course Reevaluation(s) Reevaluation #1: patient with elevated troponin will obtain 3 hour level Time: 16:21 Reevaluation #2: with flipped ts inferiorly will admit Time: 16:39 MDM - Chest Pain Lab Data Result diagrams: 08/11/21 15:45 08/11/21 15:45 Labs: Lab Results 08/11/21 08/11/21 08/11/21 Range/Units 15:45 15:45 15:45 WBC 10.4 (4.8-10.8) X10*3/uL RBC 3.57 L (4.60-5.80) X10*6/uL Hgb 10.9 L (14.0-18.0) g/dl Hct 33.5 L (42.0-52.0) % MCV 93.8 (80.0-98.0) fL MCH 30.5 (27.0-33.0) pg MCHC 32.5 (31.0-36.0) g/dl RDW 14.0 (11.0-16.0) % Plt Count 284 D (160-400) X10*3/uL MPV 10.7 (9.4-12.4) fL Immature Gran % (Auto) 0.4 (0.0-0.4) % Neut % (Auto) 64.7 (45-73) % Lymph % (Auto) 22.1 (20-40) % Scott % (Auto) 7.8 (2-11) % Eos % (Auto) 4.1 H (0-4) % Baso % (Auto) 0.9 (0-2) % Lymph # (Auto) 2.3 (1.2-4.9) X10*3/uL Scott # (Auto) 0.8 (0.1-1.2) X10*3/uL Eos # (Auto) 0.4 (0.0-0.4) X10*3/uL Baso # (Auto) 0.1 (0.0-0.2) X10*3/uL Abs Immat Gran (auto) 0.04 H (0.00-0.03) X10*3/uL Absolute Neuts (auto) 6.8 (2.0-8.3) x10*3/uL Absolute Nucleated RBC 0.000 (0.0-0.012) X10*3/uL Nucleated RBC % (auto) 0.0 (0.0-0.2) /100WBC Sodium 139 (135-145) mmol/L Potassium 4.3 (3.3-5.1) mmol/L Chloride 104 (96-108) mmol/L Carbon Dioxide 28 (22-29) mmol/L Anion Gap 11 L (12-20) BUN 17 H (9-16) mg/dL Creatinine 1.25 (0.5-1.4) mg/dL Estim Creat Clear Calc 45.5 Estimated GFR 55 Random Glucose 102 (60-115) mg/dL Calcium 9.1 (8.4-10.2) mg/dL Troponin I High Sens 44.6 H (<3.5-35.0) ng/L ECG Data ECG #1: Attestation: I personally reviewed and interpreted this ECG as follows: Interpretation: normal sinus rate of 60 question of inferior flipped ts. Discharge Plan Discharge Clinical Impression: Elevated troponin Chest pain Qualifiers: Chest pain type: unspecified Qualified Code(s): R07.9 - Chest pain, unspecified Patient Disposition: Admitted As Inpatient
--- NOTE | 2021-08-11 15:30 | ECG_ITS ---
Test Reason : CHEST PRESSURE Blood Pressure : / mmHG Vent. Rate : 061 BPM Atrial Rate : 061 BPM P-R Int : 264 ms QRS Dur : 092 ms QT Int : 410 ms P-R-T Axes : 041 -22 -13 degrees QTc Int : 412 ms Sinus rhythm with 1st degree A-V block Minimal voltage criteria for LVH, may be normal variant ( R in aVL ) Cannot rule out Anterior infarct , age undetermined Abnormal ECG When compared with ECG of 22-JUL-2019 14:05, No significant change was found Referred By: John Paul Grialdo Electronically Signed By:ARBEN WU MD
[2021-08-11 15:55] LABS: MANUAL DIFF FLAG NO
[2021-08-11 15:57] LABS: Basophils Absolute Auto 0.1 X10*3/uL (0.0-0.2); Basophils Percent Auto 0.9 % (0-2); Eosinophils Absolute Auto 0.4 X10*3/uL (0.0-0.4); Eosinophils Percent Auto 4.1 % (0-4); Hematocrit 33.5 % (42.0-52.0); Hemoglobin 10.9 g/dl (14.0-18.0); Imm Gran Abs Auto 0.04 X10*3/uL (0.00-0.03); Imm Gran Pct Auto 0.4 % (0.0-0.4); Lymphocytes Absolute Auto 2.3 X10*3/uL (1.2-4.9); Lymphocytes Percent Auto 22.1 % (20-40); Mean Corpuscular HGB Conc 32.5 g/dl (31.0-36.0); Mean Corpuscular Hemoglobin 30.5 pg (27.0-33.0); Mean Corpuscular Volume 93.8 fL (80.0-98.0); Mean Platelet Volume 10.7 fL (9.4-12.4); Monocytes Absolute Auto 0.8 X10*3/uL (0.1-1.2); Monocytes Percent Auto 7.8 % (2-11); Neutrophils Absolute Auto 6.8 x10*3/uL (2.0-8.3); Neutrophils Percent Auto 64.7 % (45-73); Platelet Count 284 X10*3/uL (160-400); Red Blood Count 3.57 X10*6/uL (4.60-5.80); White Blood Count 10.4 X10*3/uL (4.8-10.8)
[2021-08-11 16:11] LABS: Anion Gap 11 (12-20); Blood Urea Nitrogen 17 mg/dL (9-16); Calcium 9.1 mg/dL (8.4-10.2); Carbon Dioxide 28 mmol/L (22-29); Chloride 104 mmol/L (96-108); Creatinine Clr Calc Pharmacy 45.5; Estimated Glomerular Filt Rate 55; Glucose Random 102 mg/dL (60-115); Potassium 4.3 mmol/L (3.3-5.1); Sodium 139 mmol/L (135-145)
[2021-08-11 16:15] LABS: Troponin-I High Sensitivity 44.6 ng/L (<3.5-35.0)
[2021-08-11 16:43] VITALS: BP 113/60; PULSE 62
[2021-08-11] MEDS: Nitroglycerin 2 % Oint 1 GM Packet 1 INCH TRANSDERMA (16:43)
--- NOTE | 2021-08-11 17:52 | P.HPHOSP_ITS ---
History of Present Illness Date of Service: 08/11/21 Attending physician on admission: Madhav Peters Chief Complaint: Chest pain 81-year-old gentleman with past medical history of paroxysmal afib on Coumadin, CAD s/p KS, hx CVA, HTN, HLD, hx left hip fracture, hx UTIs, hx AAA 5x5.2 in Jul 21, who presents to the ER from home for evaluation chest pain that started while he was sitting on lift chair, it was sharp pain without associated shortness of breath, no palpitations, no lightheadedness, dizziness, no diaphoresis, nausea, vomiting, no radiation of pain, pain would improve with sitting, and return with lying flat, symptoms lasted for 10 15 minutes, in the emergency room labs showed an elevated troponin of 44.6 and EKG showed T-wave inversion in lead 3 and AVF,, no old EKGs for comparison, at present patient denies chest pain, recent lipid profile showed an LDL of 38 and total cholesterol of 104, patient is compliant with his home medication. Review of Systems Review of Systems: General no headache, no dizziness no fever chills. CVS no chest pain, no palpitation. Respiratory no cough, no sob. Gastrointestinal no nausea no vomiting, no abdominal pain Skin no rash no urgency, no frequency Musculoskeletal no pain Yes all other systems are reviewed and are negative [facility] Medical History Abdominal aortic aneurysm Acetabular fracture Anxiety and depression Coronary artery disease CVA (cerebral vascular accident) GERD (gastroesophageal reflux disease) Hypercholesterolemia Hypertension Interstitial lung disease Knee osteoarthritis Paroxysmal A-fib Tubular adenoma of colon Ulnar neuropathy Vertebral fracture Family History Father Medical history unknown Mother Medical history unknown Pertinent family history: Patient not aware of history of premature coronary artery disease. Surgical History History of appendectomy History of bilateral cataract extraction History of bursectomy History of hemorrhoidectomy Social History Housing: House Alcohol intake: never Patient Tobacco Use Status: Never used Tobacco e-Cigarette/Vaping Use: Never Used Second Hand Smoke Exposure: No Use of substances other than those prescribed or required for medical reasons: No Advance Directives: No Advance Directives Information Provided: No Current occupational status: retired [employer] Allergies Allergy/AdvReac Type Severity Reaction Status Date / Time No Known Allergies Allergy Verified 08/09/21 09:31 [No Known Allergies*] Active Medications: Current Medications Acetaminophen (Acetaminophen 325 Mg Tablet) 650 mg PO Q6H PRN PRN Reason: Pain, Mild (Pain Scale 1-3) Ondansetron HCl (Ondansetron Hcl 4 Mg/2 Ml Vial) 4 mg IVPUSH Q8H PRN PRN Reason: Nausea and Vomiting Sodium Chloride (0.9 % Sodium Chloride Flush 3 Ml Syringe) 3 ml IVFLUSH [facility] Home Medications Medication Instructions Recorded Confirmed Last Taken Type atenolol 25 mg tablet 25 mg PO DAILY 08/11/21 08/11/21 Unknown History ezetimibe 10 mg tablet 10 mg PO DAILY 08/11/21 08/11/21 Unknown History folic acid 1 mg tablet 1 mg PO DAILY 08/11/21 08/11/21 Unknown History mirtazapine 15 mg tablet 15 mg PO DAILY 08/11/21 08/11/21 Unknown History rosuvastatin 40 mg tablet 40 mg PO DAILY 08/11/21 08/11/21 Unknown History tamsulosin 0.4 mg capsule 0.4 mg PO DAILY 08/11/21 08/11/21 Unknown History warfarin 5 mg tablet (Jantoven) 5 mg PO DAILY 08/11/21 08/11/21 Unknown History Physical Exam Vital Signs and Narrative: Vital Signs: Last Vital Signs Temp 98.0 F 08/11/21 15:26 Pulse 62 08/11/21 16:43 Resp 18 08/11/21 15:26 BP 113/60 08/11/21 16:43 Pulse Ox 96 08/11/21 15:26 BMI result Body Mass Index 24.4 General awake alert x3, no acute distress. HEENT pupil equal round reactive to light and accommodation Neck no JVD. CVS regular rate rhythm, systolic murmur Respiratory lungs clear to auscultation, no respiratory distress, no wheeze, no rhonchi. Gastrointestinal abdomen soft, nontender, bowel sounds audible, Extremities no edema. Neuro nonfocal Skin no rash Psych appropriate affect Results Labs CBC and Chem 7: 08/11/21 15:45 08/11/21 15:45 Labs: Laboratory Results - last 24 hr 08/11/21 08/11/21 08/11/21 15:45 15:45 15:45 MCV 93.8 MCH 30.5 MCHC 32.5 RDW 14.0 Plt Count 284 D MPV 10.7 Immature Gran % (Auto) 0.4 Neut % (Auto) 64.7 Lymph % (Auto) 22.1 Wilcox % (Auto) 7.8 Eos % (Auto) 4.1 H Baso % (Auto) 0.9 Lymph # (Auto) 2.3 Wilcox # (Auto) 0.8 Eos # (Auto) 0.4 Baso # (Auto) 0.1 Abs Immat Gran (auto) 0.04 H Absolute Neuts (auto) 6.8 Absolute Nucleated RBC 0.000 Nucleated RBC % (auto) 0.0 Anion Gap 11 L Estim Creat Clear Calc 45.5 Estimated GFR 55 Random Glucose 102 Calcium 9.1 Troponin I High Sens 44.6 H Assessment and Plan (1) Chest pain: Qualifiers: Chest pain type: unspecified Qualified Code(s): R07.9 - Chest pain, unspecified Status: Acute (2) Elevated troponin: Status: Acute (3) Paroxysmal A-fib: Status: Acute (4) Generalized anxiety disorder: Status: Acute (5) Abdominal aortic aneurysm: Status: Acute 81-year-old gentleman with past medical history significant for paroxysmal atrial fibrillation on Coumadin, coronary artery disease status post KS, history of CVA, hypertension, hyperlipidemia, history of UTIs, history of AAA being followed by vascular surgery presented to [facility] with symptoms of chest pain that lasted total 10-15 minutes without associated symptoms of diaphoresis shortness of breath palpitations symptoms improved with sitting up, at present symptoms have completely resolved but patient noted to have elevated troponin and T-wave inversion in inferior leads therefore being admitted for continued monitoring and treatment. Chest pain Resolved Elevated troponin and T-wave inversions in lead 3 and AVF Will admit to telemetry repeat troponin, patient is on Coumadin with therapeutic INR, continue beta blockers, statins, give aspirin Obtain cardiology eval and echocardiogram Repeat EKG at a.m. Recent lipid profile showed LDL of 38 History of paroxysmal atrial fibrillation Currently in sinus rhythm continue atenolol and Coumadin follow INR closely History of AAA Being followed at vascular surgery History of BPH continue Flomax Mood disorder continue Remeron Code status full code DVT prophylaxis on Coumadin Quality Stroke Does the patient have a stroke diagnosis?: No VTE Prior VTE?: No VTE Risk Level:: Medical - moderate - high VTE Device Contraindication: Treatment Not Indicated VTE Drug Contraindication: N/A - Med Ordered
[2021-08-11 18:49] LABS: INTERNATIONAL NORM RATIO 1.3 (0.9-1.1); Prothrombin Time 14.4 SEC (9.9-13.0)
[2021-08-11 19:02] LABS: Troponin-I High Sensitivity 115.2 ng/L (<3.5-35.0)
[2021-08-11 20:14] LABS: Troponin-I High Sensitivity 126.8 ng/L (<3.5-35.0)
--- NOTE | 2021-08-11 20:15 | PC.NURSE ---
MD Nava notified of uptrending troponin, orders for clear liquid diet and heparin gtt noted. Pt updated on POC, expressing frustration, states when my son gets back I'll go home, if I I , it's just one little enzyme. Pt also requesting to speak to MD, information relayed.
--- NOTE | 2021-08-11 20:16 | PM.EVENT ---
Event Note Date of Service: 08/11/21 Event Note: NSTEMI: Patient follow-up troponin elevated from 40-126. Patient started on heparin drip. INR was subtherapeutic. Cardiology is notified. Patient currently chest pain-free.
[2021-08-11 20:47] LABS: Hematocrit 33.3 % (42.0-52.0); Hemoglobin 10.9 g/dl (14.0-18.0); Mean Corpuscular HGB Conc 32.7 g/dl (31.0-36.0); Mean Corpuscular Hemoglobin 30.5 pg (27.0-33.0); Mean Corpuscular Volume 93.3 fL (80.0-98.0); Mean Platelet Volume 10.2 fL (9.4-12.4); Platelet Count 266 X10*3/uL (160-400); Red Blood Count 3.57 X10*6/uL (4.60-5.80); White Blood Count 10.3 X10*3/uL (4.8-10.8)
[2021-08-11 20:53] LABS: INTERNATIONAL NORM RATIO 1.2 (0.9-1.1)
[2021-08-11 20:56] LABS: PTT Heparin Drip 31.3 SEC (53-77.9)
[2021-08-11] MEDS: Heparin Sodium,Porcine 5,000 UNIT/ML VIAL 4000 UNIT IVPUSH (21:40)
[2021-08-11] MEDS: Heparin Sodium,Porcine/1/2NS 25,000 UNIT/250 ML IV.SOLN 9 UNIT IVCONT (21:43)
[2021-08-11 21:44] VITALS: BP 126/66; PULSE 61
[2021-08-11 22:02] VITALS: BP 86/45
[2021-08-12] MEDS: Calcium Carbonate 750 MG TAB.CHEW PO (00:20)
[2021-08-12 00:48] LABS: COVID-19 Test Negative (Negative); IDNOW Serial# 9DD0AD1C
[2021-08-12 02:00] VITALS: PULSE 64; RESP 18; O2SAT 96
--- NOTE | 2021-08-12 02:06 | PC.NURSE ---
Pt transferred to hospital bed for comfort
[2021-08-12 04:09] LABS: INTERNATIONAL NORM RATIO 1.3 (0.9-1.1)
[2021-08-12 04:37] LABS: PTT Heparin Drip 84.1 SEC (53-77.9)
[2021-08-12] MEDS: Heparin Sodium,Porcine/1/2NS 25,000 UNIT/250 ML IV.SOLN 7.5 UNIT IVCONT (04:45)
--- NOTE | 2021-08-12 05:08 | PC.NURSE ---
Heparin gtt titrated per protocol, next PTT due 1000
[2021-08-12 05:35] VITALS: BP 100/48; PULSE 60; RESP 18; O2SAT 96
[2021-08-12 07:20] VITALS: BP 113/54; PULSE 56; RESP 12; TEMP 36.4; O2SAT 96
[2021-08-12] MEDS: Omeprazole 20 MG CAPSULE.DR PO (07:31)
[2021-08-12 10:03] VITALS: BP 127/61; PULSE 55
[2021-08-12] MEDS: 0.9 % Sodium Chloride Flush 3 ML SYRINGE IVFLUSH (10:03)
[2021-08-12] MEDS: atenoloL 25 MG TABLET PO (10:03)
[2021-08-12] MEDS: Folic Acid 1 MG TABLET PO (10:05)
[2021-08-12] MEDS: Ezetimibe 10 MG TABLET PO (10:05)
[2021-08-12 10:21] LABS: PTT Heparin Drip 53.7 SEC (53-77.9)
--- NOTE | 2021-08-12 10:28 | PC.NURSE ---
REMAINS IN A SINUS JLUIS
[2021-08-12 10:30] LABS: Troponin-I High Sensitivity 265.4 ng/L (<3.5-35.0)
--- NOTE | 2021-08-12 11:32 | PM.CNCAR ---
History of Present Illness History of Present Illness Date of Service: 08/12/21 Requesting physician: Madhav Peters Consult reason: other (Acute coronary syndrome) Chief complaint: chest pain Narrative: I was requested to see All in cardiology consultation today for acute coronary syndrome. He is a pleasant 81-year-old man who has not been followed up in the clinic since 2019. Patient has prior history of coronary artery disease with myocardial infarction many years ago, does not recall his symptoms, abdominal aortic aneurysm at 5 cm, prior CVA, paroxysmal atrial fibrillation on warfarin therapy, hyperlipidemia. He denies history of hypertension. He present the hospital yesterday as he developed retrosternal chest pressure, which was on and off. Symptoms then subsided by the time he came to hospital. Overall symptom duration of 15-20 minutes. When he came to the emergency room his initial EKG showed mild T-wave inversion inferior leads. His initial troponin was slightly elevated and subsequent troponins have been rising up to 225. Cardiology consult was sought for further management plan. Patient is very emotional and wants to go home. He was started on IV heparin drip yesterday as his INR is subtherapeutic. His PTTs have been in therapeutic range. No hypertension. No recurrent chest pain. Review of Systems Constitutional: Constitutional: Reports no additional constitutional complaints Eyes: Eyes: Reports no additional eye complaints ENT: Reports system reviewed and no additional complaints, except as documented Cardiovascular: Cardiovascular: Reports chest pain at rest, Denies lightheadedness, Denies Loss of Consciousness, Denies palpitations and Denies dyspnea Respiratory: Respiratory: Reports no additional respiratory complaints and Denies dyspnea Gastrointestinal: Gastrointestinal: Reports no additional gastrointestinal complaints Genitourinary: Genitourinary: Reports no additional male genitourinary complaints Musculoskeletal: Musculoskeletal: Reports no additional musculoskeletal complaints Integumentary/Breasts: Skin/Breast: Reports system reviewed and no additional complaints, except as docu Neurologic: Reports system reviewed and no additional complaints, except as documented Psychiatric: Psychiatric: Reports no additional psychiatric complaints Endocrine: Endocrine: Reports no additional endocrine complaints and Denies palpitations Hematologic/Lymphatic: Hematologic/Lymphatic: Reports no additional hematologic/lymphatic complaints Allergic/Immunologic: Allergic/Immunologic: Reports no additional allergic/immunologic complaints PMFSH Past Medical History Medical History Abdominal aortic aneurysm Acetabular fracture Anxiety and depression Coronary artery disease CVA (cerebral vascular accident) GERD (gastroesophageal reflux disease) Hypercholesterolemia Hypertension Interstitial lung disease Knee osteoarthritis Paroxysmal A-fib Tubular adenoma of colon Ulnar neuropathy Vertebral fracture Family History Family History Father Medical history unknown Mother Medical history unknown Surgical History Surgical History History of appendectomy History of bilateral cataract extraction History of bursectomy History of hemorrhoidectomy Social History Social History Housing: House Alcohol intake: never Patient Tobacco Use Status: Never used Tobacco e-Cigarette/Vaping Use: Never Used Second Hand Smoke Exposure: No Use of substances other than those prescribed or required for medical reasons: No Advance Directives: No Advance Directives Information Provided: No Current occupational status: retired [employer] Allergies Allergy/AdvReac Type Severity Reaction Status Date / Time No Known Allergies Allergy Verified 08/09/21 09:31 [No Known Allergies*] Active Medications: Current Medications Acetaminophen (Acetaminophen 325 Mg Tablet) 650 mg PO Q6H PRN PRN Reason: Pain, Mild (Pain Scale 1-3) Atenolol (Atenolol 25 Mg Tablet) 25 mg PO DAILY [facility]; Protocol Last Admin: 08/12/21 10:03 Dose: 25 mg Documented by: Atorvastatin Calcium (Atorvastatin Calcium 80 Mg Tablet) 80 mg PO BEDTIME [facility] Ezetimibe (Ezetimibe 10 Mg Tablet) 10 mg PO DAILY [facility] Last Admin: 08/12/21 10:05 Dose: 10 mg Documented by: Folic Acid (Folic Acid 1 Mg Tablet) 1 mg PO DAILY [facility] Last Admin: 08/12/21 10:05 Dose: 1 mg Documented by: Heparin Sodium (Porcine) (Heparin Sodium,Porcine 5,000 Unit/Ml Vial) 3,000 unit 40 unit/kg (3000 unit) IVPUSH PROTOCOL BOLUS PRN; Protocol PRN Reason: 40 unit/kg - Heparin Protocol Heparin Sodium (Porcine) (Heparin Sodium,Porcine 5,000 Unit/Ml Vial) 6,000 unit 80 unit/kg (6000 unit) IVPUSH PROTOCOL BOLUS PRN; Protocol PRN Reason: 80 unit/kg - Heparin Protocol Heparin Sodium/Sodium Chloride () 25,000 unit in 250 mls @ 0 mls/hr IVCONT .Q0M [facility]; Protocol Last Titration: 08/12/21 10:38 Dose: 10 units/kg/hr, 7.5 mls/hr Documented by: Mirtazapine (Mirtazapine 15 Mg Tablet) 15 mg PO BEDTIME [facility] Omeprazole (Omeprazole 20 Mg Capsule.) 20 mg PO DAILY@0630 [facility] Last Admin: 08/12/21 07:31 Dose: 20 mg Documented by: Ondansetron HCl (Ondansetron Hcl 4 Mg/2 Ml Vial) 4 mg IVPUSH Q8H PRN PRN Reason: Nausea and Vomiting Sodium Chloride (0.9 % Sodium Chloride Flush 3 Ml Syringe) 3 ml IVFLUSH QSHIFT [facility] Last Admin: 08/12/21 10:03 Dose: 3 ml Documented by: Tamsulosin HCl (Tamsulosin Hcl 0.4 Mg Capsule) 0.4 mg PO BEDTIME [facility] Home Medications Medication Instructions Recorded Confirmed Last Taken Type atenolol 25 mg tablet 25 mg PO DAILY 08/11/21 08/11/21 Unknown History ezetimibe 10 mg tablet 10 mg PO DAILY 08/11/21 08/11/21 Unknown History folic acid 1 mg tablet 1 mg PO DAILY 08/11/21 08/11/21 Unknown History mirtazapine 15 mg tablet 15 mg PO DAILY 08/11/21 08/11/21 Unknown History rosuvastatin 40 mg tablet 40 mg PO DAILY 08/11/21 08/11/21 Unknown History tamsulosin 0.4 mg capsule 0.4 mg PO DAILY 08/11/21 08/11/21 Unknown History warfarin 5 mg tablet (Jantoven) 5 mg PO DAILY 08/11/21 08/11/21 Unknown History Physical Exam Vital Signs: Vital Signs: Last Vital Signs Temp 97.5 F 08/12/21 07:20 Pulse 55 08/12/21 10:03 Resp 12 08/12/21 07:20 BP 127/61 08/12/21 10:03 Pulse Ox 96 08/12/21 07:20 BMI result Body Mass Index 24.4 Const: General: cooperative, comfortable, no acute distress, alert, awake and anxious Nutritional Appearance: average body habitus Orientation/consciousness: patient oriented x3 HENMT: Head: Yes normocephalic and Yes atraumatic Neck: Neck: Yes trachea midline, Yes supple and Yes no JVD Resp: Effort & Inspection: normal respiratory effort Auscultation: clear to auscultation bilaterally Cardio: Jugular venous distension: no JVD Palpation: normal PMI Rate: regular rate Rhythm: regular rhythm Heart sounds: S1 normal heart sound present, S2 normal heart sound present and Murmur heart sound present systolic early, decrescendo and crescendo Peripheral pulses: Peripheral pulses 2+ throughout GI: Auscultation: normal bowel sounds Skin: General skin exam: no rashes or lesions noted Neuro: General: patient oriented x3 and no focal motor deficits Extrem: General: Yes no joint enlargement Psych: Appearance: grossly normal Objective Labs and Meds Result diagrams: 08/11/21 20:41 08/11/21 15:45 Lab results: Laboratory Results - last 24 hr 08/11/21 08/11/21 08/11/21 15:45 15:45 15:45 WBC 10.4 RBC 3.57 L Hgb 10.9 L Hct 33.5 L MCV 93.8 MCH 30.5 MCHC 32.5 RDW 14.0 Plt Count 284 D MPV 10.7 Immature Gran % (Auto) 0.4 Neut % (Auto) 64.7 Lymph % (Auto) 22.1 Sully % (Auto) 7.8 Eos % (Auto) 4.1 H Baso % (Auto) 0.9 Lymph # (Auto) 2.3 Sully # (Auto) 0.8 Eos # (Auto) 0.4 Baso # (Auto) 0.1 Abs Immat Gran (auto) 0.04 H Absolute Neuts (auto) 6.8 Absolute Nucleated RBC 0.000 Nucleated RBC % (auto) 0.0 PT INR PTT (Heparin Protocol) Sodium 139 Potassium 4.3 Chloride 104 Carbon Dioxide 28 Anion Gap 11 L BUN 17 H Creatinine 1.25 Estim Creat Clear Calc 45.5 Estimated GFR 55 Random Glucose 102 Calcium 9.1 Troponin I High Sens 44.6 H COVID-19 ([facility]ICOLE) COVID-19 Clin Com 08/11/21 08/11/21 08/11/21 18:33 18:33 19:41 WBC RBC Hgb Hct MCV MCH MCHC RDW Plt Count MPV Immature Gran % (Auto) Neut % (Auto) Lymph % (Auto) Sully % (Auto) Eos % (Auto) Baso % (Auto) Lymph # (Auto) Sully # (Auto) Eos # (Auto) Baso # (Auto) Abs Immat Gran (auto) Absolute Neuts (auto) Absolute Nucleated RBC Nucleated RBC % (auto) PT 14.4 H INR 1.3 H D PTT (Heparin Protocol) Sodium Potassium Chloride Carbon Dioxide Anion Gap BUN Creatinine Estim Creat Clear Calc Estimated GFR Random Glucose Calcium Troponin I High Sens 115.2 H* D 126.8 H* COVID-19 (NICOLE) COVID-19 Clin Com 08/11/21 08/11/21 08/11/21 20:41 20:41 20:41 WBC 10.3 RBC 3.57 L Hgb 10.9 L Hct 33.3 L MCV 93.3 MCH 30.5 MCHC 32.7 RDW 14.0 Plt Count 266 MPV 10.2 Immature Gran % (Auto) Neut % (Auto) Lymph % (Auto) Sully % (Auto) Eos % (Auto) Baso % (Auto) Lymph # (Auto) Sully # (Auto) Eos # (Auto) Baso # (Auto) Abs Immat Gran (auto) Absolute Neuts (auto) Absolute Nucleated RBC 0.000 Nucleated RBC % (auto) 0.0 PT 14.0 H INR 1.2 H PTT (Heparin Protocol) 31.3 L Cancelled Sodium Potassium Chloride Carbon Dioxide Anion Gap BUN Creatinine Estim Creat Clear Calc Estimated GFR Random Glucose Calcium Troponin I High Sens COVID-19 (NICOLE) COVID-19 [place] 08/12/21 08/12/21 08/12/21 00:22 03:57 03:57 WBC RBC Hgb Hct MCV MCH MCHC RDW Plt Count MPV Immature Gran % (Auto) Neut % (Auto) Lymph % (Auto) Sully % (Auto) Eos % (Auto) Baso % (Auto) Lymph # (Auto) Sully # (Auto) Eos # (Auto) Baso # (Auto) Abs Immat Gran (auto) Absolute Neuts (auto) Absolute Nucleated RBC Nucleated RBC % (auto) PT 15.0 H INR 1.3 H PTT (Heparin Protocol) 84.1 H D Sodium Potassium Chloride Carbon Dioxide Anion Gap BUN Creatinine Estim Creat Clear Calc Estimated GFR Random Glucose Calcium Troponin I High Sens COVID-19 (NICOLE) Negative COVID-19 Clin Com See Note 08/12/21 08/12/21 10:01 10:01 WBC RBC Hgb Hct MCV MCH MCHC RDW Plt Count MPV Immature Gran % (Auto) Neut % (Auto) Lymph % (Auto) Sully % (Auto) Eos % (Auto) Baso % (Auto) Lymph # (Auto) Sully # (Auto) Eos # (Auto) Baso # (Auto) Abs Immat Gran (auto) Absolute Neuts (auto) Absolute Nucleated RBC Nucleated RBC % (auto) PT INR PTT (Heparin Protocol) 53.7 D Sodium Potassium Chloride Carbon Dioxide Anion Gap BUN Creatinine Estim Creat Clear Calc Estimated GFR Random Glucose Calcium Troponin I High Sens 265.4 H* D COVID-19 (NICOLE) COVID-19 Clin Com Assessment and Plan (1) Acute coronary syndrome: Status: Acute Patient presents with symptoms and troponin findings consistent with acute coronary syndrome. MARLENE grade score of at least 3. Recommend cardiac catheterization. He became very emotional on discussing his management plan. We discussed about invasive approach versus conservative approach for his management of acute coronary syndrome. We discussed about given his overall health that invasive approach might not be a bad option. He was very emotional again and then eventually agreed to pursue cardiac catheterization. We discussed the risks, benefits, alternatives 2nd opinion to procedure. Will transfer to [facility] for the same. Continue IV heparin. Start him on aspirin. High-intensity statin therapy. Continue metoprolol and nitro paste. Plan for cardiac catheterization tomorrow as patient is stable at this point in time. Procedures Date of Service Date of Service: 08/12/21
--- NOTE | 2021-08-12 11:53 | P.DS_ITS ---
DS: Providers Provider Date of Service: 08/12/21 Date of admission: 08/11/21 17:46 Primary care physician: Elver Germain MD Consults: 08/11/21 17:48 Consult to Cardiology Routine Consulting Provider: Marcel Barrientos Reason for consultation: chest pain Has provider been notified: No DS: Diagnosis Discharge Diagnosis (1) Acute coronary syndrome: Status: Acute (2) NSTEMI (non-ST elevated myocardial infarction): Status: Acute DS: Summary Hospital Course Hospital Course: from admission H+P by Dr Madhav Peters MD, 08/11/21: 81-year-old gentleman with past medical history of paroxysmal afib on Coumadin, CAD s/p NC, hx CVA, HTN, HLD, hx left hip fracture, hx UTIs, hx AAA 5x5.2 in Jul 21, who presents to the ER from home for evaluation chest pain that started while he was sitting on lift chair, it was sharp pain without associated shortness of breath, no palpitations, no lightheadedness, dizziness, no diaphoresis, nausea, vomiting, no radiation of pain, pain would improve with sitting, and return with lying flat, symptoms lasted for 10 15 minutes,? in the emergency room labs showed an elevated troponin of 44.6 and EKG showed T-wave inversion in lead 3 and AVF,, no old EKGs for comparison, at present patient denies chest pain, recent lipid profile showed an LDL of 38 and total cholesterol of 104, patient is compliant with his home medication. The patient was admitted to telemetry. Chest pain resolved, but high- sensitivity troponin ayana to 115, then 265. He was placed on IV heparin infusion. Cardiology was consulted. He was transferred to [facility] for cardiac catheterization. Time Spent with Patient Time attestation: Total time spent providing and/or coordinating discharge services: Discharge coordination time: Greater than 30 minutes Quality: Stroke Does the patient have a stroke diagnosis?: No Physical Exam Vital Signs: Vital Signs: Last Vital Signs Temp 97.5 F 08/12/21 07:20 Pulse 55 08/12/21 10:03 Resp 12 08/12/21 07:20 BP 127/61 08/12/21 10:03 Pulse Ox 96 08/12/21 07:20 BMI result Body Mass Index 24.4 Gen: in no acute distress HEENT: sclera anicteric, moist mucus membranes Neck: supple Lungs: clear to auscultation bilaterally Heart: regular rate and rhythm, no murmurs Abd: soft, non-tender, non-distended Ext: no edema Skin: warm/well-perfused Neuro: alert and oriented x3, no focal findings Psych: appropriate affect DS: Data Data Completed and Pending Completed studies during hospitalization [Text1]: Laboratory Results WBC 10.3 X10*3/uL (4.8-10.8) 08/11/21 20:41 RBC 3.57 X10*6/uL (4.60-5.80) L 08/11/21 20:41 Hgb 10.9 g/dl (14.0-18.0) L 08/11/21 20:41 Hct 33.3 % (42.0-52.0) L 08/11/21 20:41 MCV 93.3 fL (80.0-98.0) 08/11/21 20:41 MCH 30.5 pg (27.0-33.0) 08/11/21 20:41 MCHC 32.7 g/dl (31.0-36.0) 08/11/21 20:41 RDW 14.0 % (11.0-16.0) 08/11/21 20:41 Plt Count 266 X10*3/uL (160-400) 08/11/21 20:41 MPV 10.2 fL (9.4-12.4) 08/11/21 20:41 Immature Gran % (Auto) 0.4 % (0.0-0.4) 08/11/21 15:45 Neut % (Auto) 64.7 % (45-73) 08/11/21 15:45 Lymph % (Auto) 22.1 % (20-40) 08/11/21 15:45 [place] % (Auto) 7.8 % (2-11) 08/11/21 15:45 Eos % (Auto) 4.1 % (0-4) H 08/11/21 15:45 Baso % (Auto) 0.9 % (0-2) 08/11/21 15:45 Lymph # (Auto) 2.3 X10*3/uL (1.2-4.9) 08/11/21 15:45 [place] # (Auto) 0.8 X10*3/uL (0.1-1.2) 08/11/21 15:45 Eos # (Auto) 0.4 X10*3/uL (0.0-0.4) 08/11/21 15:45 Baso # (Auto) 0.1 X10*3/uL (0.0-0.2) 08/11/21 15:45 Abs Immat Gran (auto) 0.04 X10*3/uL (0.00-0.03) H 08/11/21 15:45 Absolute Neuts (auto) 6.8 x10*3/uL (2.0-8.3) 08/11/21 15:45 Absolute Nucleated RBC 0.000 X10*3/uL (0.0-0.012) 08/11/21 20:41 Nucleated RBC % (auto) 0.0 /100WBC (0.0-0.2) 08/11/21 20:41 PT 15.0 SEC (9.9-13.0) H 08/12/21 03:57 INR 1.3 (0.9-1.1) H 08/12/21 03:57 PTT (Heparin Protocol) 53.7 SEC (53-77.9) D 08/12/21 10:01 Sodium 139 mmol/L (135-145) 08/11/21 15:45 Potassium 4.3 mmol/L (3.3-5.1) 08/11/21 15:45 Chloride 104 mmol/L (96-108) 08/11/21 15:45 Carbon Dioxide 28 mmol/L (22-29) 08/11/21 15:45 Anion Gap 11 (12-20) L 08/11/21 15:45 BUN 17 mg/dL (9-16) H 08/11/21 15:45 Creatinine 1.25 mg/dL (0.5-1.4) 08/11/21 15:45 Estim Creat Clear Calc 45.5 08/11/21 15:45 Estimated GFR 55 08/11/21 15:45 Random Glucose 102 mg/dL (60-115) 08/11/21 15:45 Calcium 9.1 mg/dL (8.4-10.2) 08/11/21 15:45 Troponin I High Sens 265.4 ng/L (<3.5-35.0) H* D 08/12/21 10:01 COVID-19 (NICOLE) Negative (Negative) 08/12/21 00:22 COVID-19 Clin Com See Note 08/12/21 00:22 Discharge Plan Discharge Patient Disposition: [facility] Discharge Diagnosis: NSTEMI Referrals: Po,Elver Jameson MD [Primary Care Provider] - 1 Week Marcel Barrientos MD [Physician] - 1 Week Discharge Medications: New heparin (porcine) 5,000 unit/mL Solution 6,000 unit IVPUSH PROTOCOL BOLUS PRN (Reason: 80 Unit/Kg - Heparin Protocol) Qty: 1 RF: 0 heparin (porcine) 5,000 unit/mL Solution 3,000 unit IVPUSH PROTOCOL BOLUS PRN (Reason: 40 Unit/Kg - Heparin Protocol) Qty: 1 RF: 0 heparin(porcine) in 0.45% NaCl 25,000 unit/250 mL Parenteral Solution 25,000 unit continuous IV infusion .Q0M Qty: 1 RF: 0 Continued atenolol 25 mg Tablet 25 mg PO DAILY RF: 0 tamsulosin 0.4 mg Capsule 0.4 mg PO DAILY RF: 0 folic acid 1 mg Tablet 1 mg PO DAILY RF: 0 mirtazapine 15 mg Tablet 15 mg PO DAILY RF: 0 ezetimibe 10 mg Tablet 10 mg PO DAILY RF: 0 rosuvastatin 40 mg Tablet 40 mg PO DAILY RF: 0 Discontinued warfarin [Jantoven] 5 mg Tablet 5 mg PO DAILY RF: 0 Discharge Orders: Discharge Order (Routine); Ordered 08/12/21 Ordered By: Misty Kerr Diet: advance to usual diet Activity on Discharge: As tolerated Stand Alone Forms: Patient Portal Discharge page Care Plan Goals: cardiac health Health Concerns: NSTEMI Plan of Treatment: transfer to [facility] for cardiac catheterization Assessment: see Discharge Summary Patient Instructions: Heart Attack (DC)
--- NOTE | 2021-08-12 12:00 | CA_ITS ---
Transthoracic Echocardiogram Patient (Last, First, Middle): All Nicole B Gender: Male Date of : 1940 Age: 81 Procedure Date: 08/12/2021 Procedure Type: Transthoracic Echocardiogram Location[place] [facility] Height: 167.64 cm Weight: 74.84 kg BSA: 1.84 m2 Heart Rate: bpm BP: 113 / 54 mmHg Automatic Equipment Technician: Referring MD: Madhav Peters MD [employer] Supervisor: Marcel Barrientos MD Symptoms: chest pain Study Quality: Fair ECG Rhythm: Sinus Conclusions: - 1. Low normal LV systolic function with LVEF of 50-55% with impaired relaxation filling pattern 2. Knka-ta-khknmick aortic stenosis 3. Normal RV systolic pressure 4. No gross pericardial effusion Findings Procedure Information Contrast agent, definity, is being given per protocol without apparent complications. Left Ventricle Normal left ventricular cavity size. The left ventricular systolic function is low normal. The visually estimated ejection fraction is between 50-55%. Regional wall motion abnormalities can not be excluded due to suboptimal endocardial definition. Spectral Doppler is indicative of an impaired relaxation filling pattern. E/E prime ratio is between 8 and 15 consistent with indeterminate filling pressures. Right Ventricle Mildly increased right ventricular cavity size. There is normal right ventricular systolic function. Atria The left atrium is mildly dilated. Interatrial shunt cannot be excluded. The right atrium is normal in size. Aortic Valve There is mild calcification of the aortic valve. There is moderate thickening of the aortic valve. There is mild to moderate aortic valve stenosis. The peak aortic gradient is 21 mmHg.The mean gradient is 10 mmHg. The aortic valve area is 1.46 cm2. There is trace (trivial) aortic valve regurgitation. Mitral Valve There is mild anterior and posterior mitral leaflet thickening. The posterior mitral leaflet has restricted mobility. There is trace mitral valve regurgitation. There is no mitral valve stenosis. Tricuspid Valve The right ventricular systolic pressure is normal. The right ventricular systolic pressure is 18 mmHg. There is no evidence of pulmonary hypertension. Great Vessels The aorta was not well visualized. The pulmonary artery was not well visualized. Venous The inferior vena cava is normal in size and collapses greater than 50% with inspiration. Pericardium/Pleural There is no evidence of pericardial effusion. Prior Study Comparison No significant change compared to prior study. Measurements 2D Linear Measurements Ao Root: 3.70 2.1-3.5 cm LVOT Diam: 2.30 3.0+(-)1.3 cm 2D Systolic Function EF 4C: 62.70 >55% EF 2C: 47.50 >55% EF BiP: 54.90 >55% Mitral Valve MV Pk E: 0.48 MV PK A: 0.96 MV Decel Time: 231.00 E/A: 0.50 E'Lateral: 5.66 E'Medial: 4.24 E/E' Med: 11.40 E/E' Lat: 8.60 PHT: 68.00 MVA PHT: 3.24 Decel [place]: 2.10 Aortic Valve AoV Pk Santosh: 2.31 AoV Mn Santosh: 1.38 AoV VTI: 0.55 AoV Pk Grad: 21.00 Aov Mn Grad: 10.00 SUE Cont.VTI: 1.46 LVOT LVOT Pk Santosh: 0.70 LVOT Mn Santosh: 0.40 LVOT VTI: 0.19 LVOT Pk Grad: 2.00 LVOT Mn Grad: 1.00 LVOT Diam: 2.30 LVOT Area: 4.15 Diastolic Function MV Pk E: 0.48 MV Pk A: 0.96 E/A: 0.50 E'Medial: 4.24 E/E' Med: 11.40 E' Laterial: 5.66 E/E' Lat: 8.60 Right Ventricle TAPSE (mm): 23.00 Tricuspid Valve TR Pk Santosh: 1.95 TR Pk Grad: 15.00 RA Press: 3.00 RVSP: 18.00 Great Vessels Aorta Ao Root-2D: 3.70 2.0-3.7 cm Ao Asc: 3.80 2.1-3.4 cm Pulmonary Valve PV Pk Santosh: 0.64 Peak PV Grad: 2.00 Updated in Other Vendor System with Status of Final Marcel Barrientos MD electronically signed on 08/12/2021 6:20:58 PM with status of Final
--- NOTE | 2021-08-12 12:44 | MHC.CM.PN ---
pt lives alone in his home. he reports that he cares for himself. 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 he also has a son and daughter that live in the general area and help him c his needs including transportation, shopping and other things. pt reports he uses a walker at home for ambulation. he has no other svcs in the home . pt is being transferred to [facility] for cardiac intervention. action to transport. cm to cont. to follow.
[2021-08-12 15:26] VITALS: BP 123/58; PULSE 53; RESP 18; TEMP 36.6; O2SAT 94
== END 2021-08-12 18:34 | disposition short-term general hospital (02) | DRG 282 ==
LOC: HO.ED 16:34 → HO.EDOVER 18:07
PROVIDERS: Hospitalist; Admitting Provider Hospitalist; Emergency Provider Emergency Medicine; PCP Internal Medicine; Visit Provider Family Medicine
DX: I21.4 Non-ST elevation (NSTEMI) myocardial infarction (principal); F41.1 Generalized anxiety disorder; N40.0 Benign prostatic hyperplasia without lower urinary tract symptoms; I71.4 Abdominal aortic aneurysm, without rupture; Z86.73 Personal history of transient ischemic attack (TIA), and cerebral infarction without residual deficits; I48.0 Paroxysmal atrial fibrillation; Z79.02 Long term (current) use of antithrombotics/antiplatelets; Z79.899 Other long term (current) drug therapy
CPT/HCPCS: 36415; 80048; 84484; 85025; 85027; 85610; 85730; 87635; 93005; 93306; 99285; Q9957

== ENCOUNTER → 2021-08-16 09:43 | Outpatient (BNVA) | payer MEDICARE, SELFPAY | PROVIDERS: PCP Internal Medicine; Visit Provider Internal Medicine | DX: I48.0 Paroxysmal atrial fibrillation (principal); Z51.81 Encounter for therapeutic drug level monitoring; Z79.01 Long term (current) use of anticoagulants | CPT/HCPCS: 85610; 99212 ==

== ENCOUNTER → 2021-08-20 10:17 | Outpatient (BNVA) | payer MEDICARE, SELFPAY | PROVIDERS: PCP Internal Medicine; Visit Provider Internal Medicine | DX: I48.0 Paroxysmal atrial fibrillation (principal); Z51.81 Encounter for therapeutic drug level monitoring; Z79.01 Long term (current) use of anticoagulants | CPT/HCPCS: 85610; 99211 ==

== ENCOUNTER → 2021-08-27 09:54 | Outpatient (BNVA) | payer MEDICARE, SELFPAY | PROVIDERS: PCP Internal Medicine; Visit Provider Internal Medicine | DX: I48.0 Paroxysmal atrial fibrillation (principal); Z51.81 Encounter for therapeutic drug level monitoring; Z79.01 Long term (current) use of anticoagulants | CPT/HCPCS: 85610; 99211 ==

== ENCOUNTER → 2021-08-28 13:21 | Outpatient (BNVA) | payer MEDICARE, SELFPAY | PROVIDERS: PCP Internal Medicine; Referring Provider Internal Medicine; Visit Provider Nurse Practitioner Family | DX: I24.9 Acute ischemic heart disease, unspecified (principal); I25.10 Atherosclerotic heart disease of native coronary artery without angina pectoris; I48.0 Paroxysmal atrial fibrillation; E78.00 Pure hypercholesterolemia, unspecified; Z79.01 Long term (current) use of anticoagulants; Z98.890 Other specified postprocedural states | CPT/HCPCS: 99212 ==

== ENCOUNTER → 2021-09-03 11:26 | Outpatient (BNVA) | payer OTHER, SELFPAY | PROVIDERS: PCP Internal Medicine; Visit Provider Internal Medicine | DX: I48.0 Paroxysmal atrial fibrillation (principal); Z51.81 Encounter for therapeutic drug level monitoring; Z79.01 Long term (current) use of anticoagulants | CPT/HCPCS: 85610; 99211 ==

== ENCOUNTER → 2021-09-17 10:11 | Outpatient (BNVA) | payer OTHER, SELFPAY | PROVIDERS: PCP Internal Medicine; Visit Provider Internal Medicine | DX: I48.0 Paroxysmal atrial fibrillation (principal); Z51.81 Encounter for therapeutic drug level monitoring; Z79.01 Long term (current) use of anticoagulants | CPT/HCPCS: 85610; 99211 ==

== ENCOUNTER → 2021-09-20 11:19 | Outpatient (BNVA) | payer OTHER, SELFPAY | PROVIDERS: PCP Internal Medicine; Visit Provider Internal Medicine | DX: I48.0 Paroxysmal atrial fibrillation (principal); Z51.81 Encounter for therapeutic drug level monitoring; Z79.01 Long term (current) use of anticoagulants | CPT/HCPCS: 85610 ==

== ENCOUNTER 2021-09-21 00:23 | Observation (INO) | payer OTHER, SELFPAY ==
[2021-09-21] VITALS (18 sets, daily range): BP systolic 95–139; BP diastolic 29–61; PULSE 58–95; RESP 14–20; TEMP 36.3–36.8; O2SAT 92–100; BMI 27.2
--- NOTE | ~2021-09-21 | XR_ITS ---
EXAMINATION: XR KNEE, LEFT CLINICAL INFORMATION: Fall. Abrasion. COMPARISON: 11/02/2019 TECHNIQUE: Two views of the left knee. FINDINGS: No fracture or subluxation. Medial compartment joint space narrowing with near [id number] appearance. Tricompartmental marginal osteophytes noted. Small joint effusion. Enthesophyte formation of the patella. Diffuse vascular calcifications. XR/XR knee LT 4V IMPRESSION: No acute fracture or malalignment. Moderate tricompartmental degenerative changes. Small joint effusion.
--- NOTE | ~2021-09-21 | CT_ITS ---
EXAMINATION: CT CHEST WITHOUT CONTRAST CLINICAL INFORMATION: Fall. Ecchymosis of the left chest. Focus on shoulder and humerus. COMPARISON: Radiograph 07/19/2021. TECHNIQUE: Multidetector volumetric CT imaging of the chest was done. Axial MIP volume rendering provided. Sagittal and coronal reformatted images were obtained. This CT examination was performed using dose optimization techniques as appropriate, variously including the following: *Automated exposure control *Adjustment of mA and/or kV according to patient size (this includes techniques or standardized protocols for targeted exams where dose is matched to indication/reason for exam; i.e. extremities or head) *Use of iterative reconstruction technique DLP: 426 mGy-cm FINDINGS: BRIDGE TEACHER: Aortic calcifications. LUNGS: The central airways are patent. Bibasilar atelectasis. No dense consolidation. Subpleural reticulation noted suggestive of chronic lung disease. No honeycombing. No pneumothorax. No pleural effusion. MEDIASTINUM: Normal heart size. Coronary artery calcifications are present. No pericardial effusion. No mediastinal lymphadenopathy. No mediastinal hematoma. The thyroid gland is unremarkable. AXILLA: No lymphadenopathy. Soft tissue stranding in the subcutaneous fat along the anterior left chest wall. UPPER ABDOMEN: Extensive vascular calcifications. No acute abnormality. Partial visualization of what may be an abdominal aortic aneurysm.. OSSEOUS STRUCTURES: The sternum is intact. Vertebral body height and alignment maintained with multilevel small endplate osteophytes. Possible nondisplaced left anterior third rib fracture. Chronic healed left fourth, fifth, and sixth rib fractures. There is a fracture of the most lateral aspect of the left clavicle. The acromioclavicular joint remains aligned. The scapula appears intact. The humeral head articulates appropriately with the glenoid. Degenerative changes of both shoulders. The visualized left humerus appears intact. CT/CT chest wo con IMPRESSION: Comminuted, essentially nondisplaced fracture of the distal left clavicle near the acromioclavicular joint, which remains aligned. Degenerative changes at this site. Possible nondisplaced left anterior third rib fracture. There are multiple additional left-sided fractures which are chronic and healed. Evidence of chronic fibrotic lung disease. Partial visualization of a known abdominal aortic aneurysm. This is previously followed by ultrasound. Fleischner guidelines were followed.
--- NOTE | ~2021-09-21 | CT_ITS ---
EXAMINATION: NONCONTRAST HEAD CT NONCONTRAST CERVICAL SPINE CT INDICATION INFORMATION: Fall. On Coumadin. COMPARISON: 07/22/2019 TECHNIQUE: Separate noncontrast CT examinations of the head and cervical spine were performed. Coronal and sagittal images were created for each examination at the technologist workstation. This CT examination was performed using dose optimization techniques as appropriate, variously including the following: *Automated exposure control *Adjustment of mA and/or kV according to patient size (this includes techniques or standardized protocols for targeted exams where dose is matched to indication/reason for exam; i.e. extremities or head) *Use of iterative reconstruction technique DLP: 1027 mGy-cm FINDINGS: Head: There is no evidence of acute intracranial hemorrhage or territorial infarction. No abnormal mass effect or midline shift is seen. Sharma to white matter differentiation is well preserved. No extra-axial fluid collections are identified. No hydrocephalus. Proportional prominence of the ventricles and sulcal spaces is consistent with moderate volume loss. Chronic right frontal lacunar infarct. Patchy periventricular and deep white matter hypoattenuation is consistent with moderate small vessel ischemic changes. No acute osseous or soft tissue abnormality. Partial opacification of the left maxillary sinus. The mastoid air cells and visualized portions of the paranasal sinuses are otherwise well aerated. Cervical spine: There is anatomic alignment of the vertebral bodies and posterior elements. The atlantoaxial and atlantooccipital articulations are intact. Mild height loss of the C6 and C7 vertebral bodies which have progressed from 2019. There is multilevel intervertebral disc space narrowing with endplate osteophyte formation and facet arthropathy. No evidence of acute fracture. No prevertebral soft tissue swelling. Visualized portions of the lung apices are unremarkable. The thyroid gland is unremarkable. CT/CT cervical spine wo con IMPRESSION: 1. No acute intracranial findings. 2. Mild height loss of the C6 and C7 vertebral bodies which have progressed since 2019. No acute fracture lines are seen. No soft tissue swelling. Degenerative changes in the spine.
--- NOTE | 2021-09-21 01:05 | ECG_ITS ---
Test Reason : FALL Blood Pressure : / mmHG Vent. Rate : 074 BPM Atrial Rate : 074 BPM P-R Int : 272 ms QRS Dur : 080 ms QT Int : 382 ms P-R-T Axes : 037 -15 003 degrees QTc Int : 424 ms Sinus rhythm with 1st degree A-V block Otherwise normal ECG When compared with ECG of 11-AUG-2021 15:33, Nonspecific T wave abnormality has replaced inverted T waves in Inferior leads Referred By: Sherrie Vital Electronically Signed By:Andrew Hwang
--- NOTE | 2021-09-21 01:22 | ED.FALL ---
HPI - Fall General Chief Complaint: Fall Stated Complaint: Fall/Shoulder pain Time Seen by Provider: 09/21/21 00:49 Source: patient Mode of arrival: EMS History of Present Illness HPI Narrative: 81-year-old male who is brought in by EMS after he was attempting to pick in item up off of the floor, lost his balance and landed on his left shoulder. Patient denies any prodrome dizziness, palpitations prior to the event. Patient reports he is on anticoagulation for irregular heartbeat and as per EMS they placed the patient on 2 L of nasal cannula as he was noted to have low oxygenation en route. Related Data Home Medications Medication Instructions Recorded Confirmed ezetimibe 10 mg tablet 10 mg PO DAILY 08/11/21 09/20/21 mirtazapine 15 mg tablet 15 mg PO DAILY 08/11/21 09/20/21 rosuvastatin 40 mg tablet 40 mg PO DAILY 08/11/21 09/20/21 tamsulosin 0.4 mg capsule 0.4 mg PO DAILY 08/11/21 09/20/21 warfarin 5 mg tablet 5 mg PO DAILY 08/16/21 09/20/21 atenolol 50 mg tablet 50 mg PO DAILY 09/17/21 09/20/21 atorvastatin 80 mg tablet 80 mg PO DAILY 09/17/21 09/20/21 valsartan 40 mg tablet 40 mg PO DAILY 09/17/21 09/20/21 tramadol 50 mg tablet 50 mg PO DAILY 09/20/21 09/20/21 Previous Rx's Medication Instructions Recorded clopidogrel 75 mg tablet 75 mg PO DAILY 90 Days #90 tab 08/15/21 folic acid 1 mg tablet 1 mg PO DAILY #90 tab 09/04/21 Allergies Allergy/AdvReac Type Severity Reaction Status Date / Time No Known Allergies Allergy Verified 09/20/21 11:36 [No Known Allergies*] Review of Systems Review of Systems: Pertinent positives and negatives as stated in HPI 10 point review of systems otherwise negative. [facility] Past Medical History Source: nursing notes reviewed Medical History Abdominal aortic aneurysm Acetabular fracture Anxiety and depression Coronary artery disease CVA (cerebral vascular accident) GERD (gastroesophageal reflux disease) Hypercholesterolemia Hypertension Interstitial lung disease Knee osteoarthritis Paroxysmal A-fib Tubular adenoma of colon Ulnar neuropathy Vertebral fracture Surgical History History of appendectomy History of bilateral cataract extraction History of bursectomy History of hemorrhoidectomy S/P cardiac catheterization Family History Family History Father Medical history unknown Mother Medical history unknown Social History Social History Housing: House Alcohol intake: never Patient Tobacco Use Status: Never used Tobacco e-Cigarette/Vaping Use: Never Used Second Hand Smoke Exposure: No Advance Directives: No service: No Current occupational status: retired Physical Exam Vital Signs: Vital Signs: Last Vital Signs Temp 97.8 F 09/21/21 00:45 Pulse 58 09/21/21 03:34 Resp 16 09/21/21 03:34 BP 132/43 L 09/21/21 03:34 Pulse Ox 99 09/21/21 02:22 BMI result Body Mass Index 27.2 VITAL SIGNS: Reviewed. GENERAL: Elderly, frail, in mild distress. HEAD: Normocephalic/atraumatic EYES: PERRLA, EOMI OROPHARYNX: no oral lesions noted, posterior pharynx clear NECK: Supple, no adenopathy LUNGS: Normal breath sounds. No adventitious sounds or accessory muscle use. SpO2<99> on 2 L of nasal cannula, chest wall tenderness and significant ecchymosis noted to the left anterior chest wall that is discolored and most consistent with older injury despite patient denying. CARDIOVASCULAR: Regular rate and rhythm without noted murmurs, no JVD or lower extremity edema. ABDOMEN: Soft, non-tender, non-distended with bowel sounds. MUSCULOSKELETAL: No tenderness, deformities, or effusions noted on gross inspection. EXTREMITIES: No cyanosis, clubbing or edema, left shoulder with deformity but neurovascularly intact and significant pain on palpation; left and right knee with superficial abrasion SKIN: Inspection of the skin reveals no rashes, ulcerations, jaundice, pallor, or petechiae. NEUROLOGIC: Alert and oriented x 4. Strength and sensation to light touch were grossly intact x 4. Course Course Course Narrative: 81-year-old male with history and clinical presentation consistent with mechanical fall. Will obtain lab work and imaging. Review of all investigations demonstrates that patient has a supratherapeutic INR, HARSHA, and imaging findings of possible nondisplaced left anterior 3rd rib fracture as well as a comminuted nondisplaced fracture of the distal left clavicle otherwise no evidence of dislocation. I discussed the case with inpatient hospitalist who accepts admission. MDM - Fall Lab Data Result diagrams: 09/21/21 01:24 09/21/21 01:24 Labs: Lab Results 09/21/21 09/21/21 09/21/21 Range/Units 01: 01: 01:24 WBC 10.4 (4.8-10.8) X10*3/uL RBC 3.26 L (4.60-5.80) X10*6/uL Hgb 10.1 L (14.0-18.0) g/dl Hct 31.0 L (42.0-52.0) % MCV 95.1 (80.0-98.0) fL MCH 31.0 (27.0-33.0) pg MCHC 32.6 (31.0-36.0) g/dl RDW 14.3 (11.0-16.0) % Plt Count 179 D (160-400) X10*3/uL MPV 11.3 (9.4-12.4) fL Immature Gran % (Auto) 0.8 H (0.0-0.4) % Neut % (Auto) 74.3 H (45-73) % Lymph % (Auto) 11.5 L (20-40) % [place] % (Auto) 9.6 (2-11) % Eos % (Auto) 3.3 (0-4) % Baso % (Auto) 0.5 (0-2) % Lymph # (Auto) 1.2 (1.2-4.9) X10*3/uL [place] # (Auto) 1.0 (0.1-1.2) X10*3/uL Eos # (Auto) 0.3 (0.0-0.4) X10*3/uL Baso # (Auto) 0.1 (0.0-0.2) X10*3/uL Abs Immat Gran (auto) 0.08 H (0.00-0.03) X10*3/uL Absolute Neuts (auto) 7.7 (2.0-8.3) x10*3/uL Absolute Nucleated RBC 0.000 (0.0-0.012) X10*3/uL Nucleated RBC % (auto) 0.0 (0.0-0.2) /100WBC PT 52.9 H (9.9-13.0) SEC INR 4.5 H D (0.9-1.1) Sodium 140 (135-145) mmol/L Potassium 4.8 (3.3-5.1) mmol/L Chloride 105 (96-108) mmol/L Carbon Dioxide 27 (22-29) mmol/L Anion Gap 13 (12-20) BUN 32 H D (9-16) mg/dL Creatinine 1.66 H (0.5-1.4) mg/dL Estim Creat Clear Calc 33.1 Estimated GFR 40 Random Glucose 123 H (60-115) mg/dL Calcium 9.1 (8.4-10.2) mg/dL Total Bilirubin 0.3 (0.0-1.0) mg/dL AST 19 (5-37) U/L ALT 12 (0-40) U/L Alkaline Phosphatase 77 (39-117) U/L Total Protein 6.9 (6.5-8.0) g/dL Albumin 3.9 (3.5-5.0) g/dL COVID-19 (NICOLE) (Negative) COVID-19 Clin Com 09/21/21 Range/Units 02:21 WBC (4.8-10.8) X10*3/uL RBC (4.60-5.80) X10*6/uL Hgb (14.0-18.0) g/dl Hct (42.0-52.0) % MCV (80.0-98.0) fL MCH (27.0-33.0) pg MCHC (31.0-36.0) g/dl RDW (11.0-16.0) % Plt Count (160-400) X10*3/uL MPV (9.4-12.4) fL Immature Gran % (Auto) (0.0-0.4) % Neut % (Auto) (45-73) % Lymph % (Auto) (20-40) % [place] % (Auto) (2-11) % Eos % (Auto) (0-4) % Baso % (Auto) (0-2) % Lymph # (Auto) (1.2-4.9) X10*3/uL [place] # (Auto) (0.1-1.2) X10*3/uL Eos # (Auto) (0.0-0.4) X10*3/uL Baso # (Auto) (0.0-0.2) X10*3/uL Abs Immat Gran (auto) (0.00-0.03) X10*3/uL Absolute Neuts (auto) (2.0-8.3) x10*3/uL Absolute Nucleated RBC (0.0-0.012) X10*3/uL Nucleated RBC % (auto) (0.0-0.2) /100WBC PT (9.9-13.0) SEC INR (0.9-1.1) Sodium (135-145) mmol/L Potassium (3.3-5.1) mmol/L Chloride (96-108) mmol/L Carbon Dioxide (22-29) mmol/L Anion Gap (12-20) BUN (9-16) mg/dL Creatinine (0.5-1.4) mg/dL Estim Creat Clear Calc Estimated GFR Random Glucose (60-115) mg/dL Calcium (8.4-10.2) mg/dL Total Bilirubin (0.0-1.0) mg/dL AST (5-37) U/L ALT (0-40) U/L Alkaline Phosphatase (39-117) U/L Total Protein (6.5-8.0) g/dL Albumin (3.5-5.0) g/dL COVID-19 (NICOLE) Negative (Negative) COVID-19 Clin Com See Note ECG Data Attestation: I personally reviewed and interpreted this ECG as follows: Prior ECG tracings: available for review (08/11/2021) Interpretation: Sinus rhythm, HR-74, first-degree AV block (this is unchanged from prior), no STEMI, QRS/QTC are within normal limits. Discharge Plan Discharge Clinical Impression: HARSHA (acute kidney injury), Left rib fracture, Fracture of left clavicle, Hypoxia Patient Disposition: Admitted As Inpatient Prescriptions: No Action clopidogrel 75 mg tablet 75 mg PO DAILY 90 Days Qty: 90 RF: 3 folic acid 1 mg tablet 1 mg PO DAILY Qty: 90 RF: 1 tamsulosin 0.4 mg Capsule 0.4 mg PO DAILY RF: 0 mirtazapine 15 mg Tablet 15 mg PO DAILY RF: 0 ezetimibe 10 mg Tablet 10 mg PO DAILY RF: 0 rosuvastatin 40 mg Tablet 40 mg PO DAILY RF: 0 warfarin 5 mg tablet 5 mg PO DAILY RF: 0 atorvastatin 80 mg tablet 80 mg PO DAILY RF: 0 atenolol 50 mg tablet 50 mg PO DAILY RF: 0 valsartan 40 mg tablet 40 mg PO DAILY RF: 0 tramadol 50 mg tablet 50 mg PO DAILY RF: 0
[2021-09-21 01:28] LABS: Basophils Absolute Auto 0.1 X10*3/uL (0.0-0.2); Basophils Percent Auto 0.5 % (0-2); Eosinophils Absolute Auto 0.3 X10*3/uL (0.0-0.4); Eosinophils Percent Auto 3.3 % (0-4); Hemoglobin 10.1 g/dl (14.0-18.0); Imm Gran Abs Auto 0.08 X10*3/uL (0.00-0.03); Imm Gran Pct Auto 0.8 % (0.0-0.4); Lymphocytes Absolute Auto 1.2 X10*3/uL (1.2-4.9); Lymphocytes Percent Auto 11.5 % (20-40); MANUAL DIFF FLAG NO; Mean Corpuscular HGB Conc 32.6 g/dl (31.0-36.0); Mean Corpuscular Volume 95.1 fL (80.0-98.0); Mean Platelet Volume 11.3 fL (9.4-12.4); Monocytes Percent Auto 9.6 % (2-11); Neutrophils Absolute Auto 7.7 x10*3/uL (2.0-8.3); Neutrophils Percent Auto 74.3 % (45-73); Platelet Count 179 X10*3/uL (160-400); Red Blood Count 3.26 X10*6/uL (4.60-5.80); Red Cell Distribution Width 14.3 % (11.0-16.0); White Blood Count 10.4 X10*3/uL (4.8-10.8)
[2021-09-21] MEDS: Acetaminophen 325 MG TABLET 975 MG PO (01:35)
[2021-09-21 01:45] LABS: INTERNATIONAL NORM RATIO 4.5 (0.9-1.1); Prothrombin Time 52.9 SEC (9.9-13.0)
[2021-09-21 01:51] LABS: Alanine Aminotransferase 12 U/L (0-40); Albumin Level 3.9 g/dL (3.5-5.0); Alkaline Phosphatase 77 U/L (39-117); Anion Gap 13 (12-20); Aspartate Amino Transferase 19 U/L (5-37); Bilirubin Total 0.3 mg/dL (0.0-1.0); Blood Urea Nitrogen 32 mg/dL (9-16); Calcium 9.1 mg/dL (8.4-10.2); Carbon Dioxide 27 mmol/L (22-29); Chloride 105 mmol/L (96-108); Creatinine Clr Calc Pharmacy 33.1; Estimated Glomerular Filt Rate 40; Glucose Random 123 mg/dL (60-115); Potassium 4.8 mmol/L (3.3-5.1); Sodium 140 mmol/L (135-145); Total Protein 6.9 g/dL (6.5-8.0)
[2021-09-21 02:42] LABS: COVID-19 Test Negative (Negative); IDNOW Serial# 9DD0AD1C
[2021-09-21 07:35] LABS: Appearance Urine HAZY; Color Urine YELLOW; Glucose Urine UA NEG (NEG); Leukocyte Esterase Urine TRACE (NEG); Nitrite Urine POS (NEG); Specific Gravity - Urine 1.025 (1.005-1.025); UACC Culture Trigger YES; Urine Blood NEG (NEG); Urine Ketones NEG (NEG); Urine Protein TRACE MG/DL (NEG-TRACE)
[2021-09-21 07:57] LABS: RBC Urine 0 /HPF (0); Squamous Epithelial Cell Urine 1+ /LPF
[2021-09-21 07:58] LABS: Bacteria Urine 4+ /LPF
[2021-09-21] MEDS: ondansetron HCL 4 MG/2 ML VIAL IVPUSH (07:58)
[2021-09-21] MEDS: Morphine Sulfate 2 MG/ML CARTRIDGE IVPUSH (08:00)
--- NOTE | 2021-09-21 10:07 | PM.IMHP ---
History of Present Illness Date of Service: 09/21/21 Chief Complaint: Fall 81-year-old male who lives alone presented with fall. 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 denies loss of consciousness, reports that it was mechanical in nature. He fell onto his left side and had severe pain, he yelled out in his neighbors helped him call EMS. In ED found to have mild acute kidney injury with a creatinine of 1.66, increased from a baseline of 1.25. Also noted to have left clavicular fracture and left 3rd rib fracture. Review of Systems Review of Systems: Constitutional: Denies fever, denies Chills Eyes: denies blurry vision ENT: denies sore throat CVS: chest pain Respiratory: Denies dyspnea GI: no abdominal pain : denies dysuria MSK: denies neck pain Skin: denies rash Neuro: denies specific motor weakness Psych: denies suicidal ideation Endocrine: denies heat/cold intolerance Hematologic: denies easy bleeding Allergy: denies hives [facility] Medical History Abdominal aortic aneurysm Acetabular fracture Anxiety and depression Coronary artery disease CVA (cerebral vascular accident) GERD (gastroesophageal reflux disease) Hypercholesterolemia Hypertension Interstitial lung disease Left rib fracture NSTEMI (non-ST elevated myocardial infarction) Paroxysmal A-fib Rotator cuff dysfunction Tubular adenoma of colon Ulnar neuropathy Vertebral fracture Family History Father Medical history unknown Mother Medical history unknown Surgical History History of appendectomy History of bilateral cataract extraction History of bursectomy History of hemorrhoidectomy S/P cardiac catheterization Social History Housing: House Alcohol intake: never Patient Tobacco Use Status: Never used Tobacco e-Cigarette/Vaping Use: Never Used Second Hand Smoke Exposure: No Advance Directives: No service: No Current occupational status: retired Meds Allergies Allergy/AdvReac Type Severity Reaction Status Date / Time No Known Allergies Allergy Verified 09/20/21 11:36 [No Known Allergies*] Active Medications: Current Medications Acetaminophen (Acetaminophen 325 Mg Tablet) 650 mg PO Q6H PRN PRN Reason: Pain, Mild (Pain Scale 1-3) Atorvastatin Calcium (Atorvastatin Calcium 80 Mg Tablet) 80 mg PO BEDTIME COUNT INCLUDES [facility] Clopidogrel Bisulfate (Clopidogrel Bisulfate 75 Mg Tablet) 75 mg PO DAILY COUNT INCLUDES [facility] Pharmacy Consult (Consult Rx Perform Med Rec) 1 each MISCELLANE ONCE PRN PRN Reason: Consult order Sodium Chloride (0.9 % Sodium Chloride Flush 3 Ml Syringe) 3 ml IVFLUSH QSHIFT COUNT INCLUDES THE [facility] Home Medications Medication Instructions Recorded Confirmed Last Taken Type ezetimibe 10 mg tablet 10 mg PO DAILY 08/11/21 09/20/21 Unknown History mirtazapine 15 mg tablet 15 mg PO DAILY 08/11/21 09/20/21 Unknown History rosuvastatin 40 mg tablet 40 mg PO DAILY 08/11/21 09/20/21 Unknown History tamsulosin 0.4 mg capsule 0.4 mg PO DAILY 08/11/21 09/20/21 Unknown History warfarin 5 mg tablet 5 mg PO DAILY 08/16/21 09/20/21 Unknown History atenolol 50 mg tablet 50 mg PO DAILY 09/17/21 09/20/21 Unknown History atorvastatin 80 mg tablet 80 mg PO DAILY 09/17/21 09/20/21 Unknown History valsartan 40 mg tablet 40 mg PO DAILY 09/17/21 09/20/21 Unknown History tramadol 50 mg tablet 50 mg PO DAILY 09/20/21 09/20/21 Unknown History Physical Exam Vital Signs and Narrative: Vital Signs: Last Vital Signs Temp 98.0 F 09/21/21 09:23 Pulse 65 09/21/21 09:23 Resp 14 09/21/21 09:23 BP 96/38 L 09/21/21 09:23 Pulse Ox 95 09/21/21 09:23 BMI result Body Mass Index 27.2 General: no acute distress HEENT: atraumatic Neck: normal to visual inspection CVS: S1, S2, RRR Resp: CTA bilateral Chest: non tender GI: soft, non tender, non distended : no CVA tenderness Skin: no rashes Extremities: no edema Neuro: Oriented X3, grossly intact Psych: cooperative Results Labs CBC and Chem 7: 09/21/21 01:24 09/21/21 01:24 Labs: Laboratory Results - last 24 hr 09/21/21 09/21/21 09/21/21 01:24 01:24 01:24 MCV 95.1 MCH 31.0 MCHC 32.6 RDW 14.3 Plt Count 179 D MPV 11.3 Immature Gran % (Auto) 0.8 H Neut % (Auto) 74.3 H Lymph % (Auto) 11.5 L Lawrence % (Auto) 9.6 Eos % (Auto) 3.3 Baso % (Auto) 0.5 Lymph # (Auto) 1.2 Lawrence # (Auto) 1.0 Eos # (Auto) 0.3 Baso # (Auto) 0.1 Abs Immat Gran (auto) 0.08 H Absolute Neuts (auto) 7.7 Absolute Nucleated RBC 0.000 Nucleated RBC % (auto) 0.0 PT 52.9 H INR 4.5 H D Anion Gap 13 Estim Creat Clear Calc 33.1 Estimated GFR 40 Random Glucose 123 H Calcium 9.1 Total Bilirubin 0.3 AST 19 ALT 12 Alkaline Phosphatase 77 Total Protein 6.9 Albumin 3.9 Urine Color Urine Appearance Urine pH Ur Specific [place] Urine Protein Urine Glucose (UA) Urine Ketones Urine Blood Urine Nitrite Ur Leukocyte Esterase Urine RBC Urine WBC Ur Squamous Epith Cells Urine Bacteria COVID-19 (NICOLE) COVID-19 Clin Com 09/21/21 09/21/21 02:21 07:22 MCV MCH MCHC RDW Plt Count MPV Immature Gran % (Auto) Neut % (Auto) Lymph % (Auto) Lawrence % (Auto) Eos % (Auto) Baso % (Auto) Lymph # (Auto) Lawrence # (Auto) Eos # (Auto) Baso # (Auto) Abs Immat Gran (auto) Absolute Neuts (auto) Absolute Nucleated RBC Nucleated RBC % (auto) PT INR Anion Gap Estim Creat Clear Calc Estimated GFR Random Glucose Calcium Total Bilirubin AST ALT Alkaline Phosphatase Total Protein Albumin Urine Color YELLOW Urine Appearance HAZY Urine pH 6.0 Ur Specific [place] 1.025 Urine Protein TRACE Urine Glucose (UA) NEG Urine Ketones NEG Urine Blood NEG Urine Nitrite POS H Ur Leukocyte Esterase TRACE H Urine RBC 0 Urine WBC 10-14 H Ur Squamous Epith Cells 1+ Urine Bacteria 4+ COVID-19 (NICOLE) Negative COVID-19 Clin Com See Note Imaging Radiologist's Impressions: Impressions Knee X-Ray 09/21/21 03:00 IMPRESSION: No acute fracture or malalignment. Moderate tricompartmental degenerative changes. Small joint effusion. Cervical Spine CT 09/21/21 03:40 IMPRESSION: 1. No acute intracranial findings. 2. Mild height loss of the C6 and C7 vertebral bodies which have progressed since 2019. No acute fracture lines are seen. No soft tissue swelling. Degenerative changes in the spine. Chest CT 09/21/21 03:40 IMPRESSION: Comminuted, essentially nondisplaced fracture of the distal left clavicle near the acromioclavicular joint, which remains aligned. Degenerative changes at this site. Possible nondisplaced left anterior third rib fracture. There are multiple additional left-sided fractures which are chronic and healed. Evidence of chronic fibrotic lung disease. Partial visualization of a known abdominal aortic aneurysm. This is previously followed by ultrasound. Fleischner guidelines were followed. Head CT 09/21/21 03:40 IMPRESSION: 1. No acute intracranial findings. 2. Mild height loss of the C6 and C7 vertebral bodies which have progressed since 2019. No acute fracture lines are seen. No soft tissue swelling. Degenerative changes in the spine. Assessment and Plan (1) GUERO (acute kidney injury): Status: Acute 81M presented with fall complicated by GUERO on CKD II, rib and clavicle fracture guero on ckd II hold arb, gentle hydration, monitor left rib and clavicle fracture after mechanical fall OT, pt eval pain control patient not intersted in SNF paroxysmal atrial fibrillation on coumadin with supratherapeutic inr currently in sinus, atenolol, restart coumadin when inr<3 monitor inr cad with ischemic cardiomyopathy EF 35% plavix, coumadin, statin, atenolol, holding arb for guero bph flomax htn relative hypotension, arb on hold dnr dni Quality Stroke Does the patient have a stroke diagnosis?: No VTE Prior VTE?: No VTE Risk Level:: Medical - moderate - high VTE Device Contraindication: Treatment Not Indicated VTE Drug Contraindication: N/A - Med Ordered
[2021-09-21] MEDS: Acetaminophen 325 MG TABLET 650 MG PO (10:59)
[2021-09-21] MEDS: Lidocaine 4 % Patch ADH..PATCH 1 PATCH TRANSDERMA (11:00)
[2021-09-21] MEDS: 0.9 % Sodium Chloride 1,000 ML 50 ML IVCONT (11:01)
--- NOTE | 2021-09-21 11:01 | PC.NURSE ---
pt is a/o x 3 with some confusion, pt states that the president of the [facility] is monica valenzuela.
--- NOTE | 2021-09-21 11:24 | PC.NURSE ---
pt's son keven ([phone]) called [facility] [place] and was updated on pt status.
--- NOTE | 2021-09-21 14:48 | PC.NURSE ---
pt is adamant about leaving and is partially dressed in street clothing. rn to rn report given to robin. pt aware of plan of care for admission to hosp.
[2021-09-21] MEDS: 0.9 % Sodium Chloride Flush 3 ML SYRINGE IVFLUSH ×2 (16:57→19:42)
[2021-09-21] MEDS: cefTRIAXone sodium 1 GM in 0.9 % Sodium Chloride 50 ML IV (16:57)
--- NOTE | 2021-09-21 18:46 | PC.NURSE ---
Pt alert and oriented x3. Pt admitted to [id number] after a mechanical fall at home. He sustained a clavicular and rib fractures. Pt has a sling to the left hand,. an abrasion to the elft knee that was dressed with Allevyn. #20 IV to the RAC with NaCl running at 80ml/hr. Pt states that he uses a walker and a cane at baseline. Fall risk precaution initiated with a camera.
[2021-09-21] MEDS: Tamsulosin HCL 0.4 MG CAPSULE PO (19:36)
[2021-09-21] MEDS: Atorvastatin Calcium 80 MG TABLET PO (19:36)
[2021-09-21] MEDS: Mirtazapine 15 MG TABLET PO (19:36)
[2021-09-21] MEDS: HYDROmorphone HCl 1 MG/ML SYRINGE 0.5 MG IVPUSH (21:40)
[2021-09-22 06:06] LABS: Hematocrit 28.8 % (42.0-52.0); Hemoglobin 9.3 g/dl (14.0-18.0); Mean Corpuscular HGB Conc 32.3 g/dl (31.0-36.0); Mean Platelet Volume 11.3 fL (9.4-12.4); Platelet Count 165 X10*3/uL (160-400); Red Cell Distribution Width 14.3 % (11.0-16.0); White Blood Count 8.6 X10*3/uL (4.8-10.8)
[2021-09-22 06:12] LABS: INTERNATIONAL NORM RATIO 2.9 (0.9-1.1); Prothrombin Time 33.6 SEC (9.9-13.0)
[2021-09-22 06:34] LABS: Anion Gap 10 (12-20); Blood Urea Nitrogen 24 mg/dL (9-16); Calcium 8.2 mg/dL (8.4-10.2); Carbon Dioxide 25 mmol/L (22-29); Chloride 107 mmol/L (96-108); Creatinine Clr Calc Pharmacy 40.8; Estimated Glomerular Filt Rate 51; Glucose Fasting 91 mg/dL (60-99); Potassium 4.4 mmol/L (3.3-5.1); Sodium 138 mmol/L (135-145)
[2021-09-22 08:00] VITALS: BP 132/60; PULSE 85; RESP 18; TEMP 36.8; O2SAT 92
[2021-09-22] MEDS: Acetaminophen 325 MG TABLET 650 MG PO (08:35)
--- NOTE | 2021-09-22 10:20 | P.PNIM_ITS ---
Subjective Subjective Date of Service: 09/22/21 Interval History: cc: fall interval history: wants to go home Cardiovascular Cardiovascular: Reports no additional cardiovascular complaints Respiratory Respiratory: Reports no additional respiratory complaints Physical Exam Vital Signs: Vital Signs: Last Vital Signs Temp 98.2 F 09/22/21 08:00 Pulse 85 09/22/21 08:00 Resp 18 09/22/21 08:00 BP 132/60 09/22/21 08:00 Pulse Ox 92 09/22/21 08:00 BMI result Body Mass Index 27.2 General: AO X 3, agitated, wants to go home Resp: CTA bilateral, no accessory muscles used CVS: S1,S2,RRR GI: soft, non tender, non distended Neuro: motor grossly intact, alert MSK: using lue despite instructions Psych: appears to have cognitive impair, but demonstrates understanding of situation enough to make discharge decisions Objective Data Active Medications Acetaminophen (Acetaminophen 325 Mg Tablet) 650 mg PO Q6H PRN PRN Reason: Pain, Mild (Pain Scale 1-3) Last Admin: 09/22/21 08:35 Dose: 650 mg Documented by: ABI Aspirin (Aspirin Enteric Coated 81 Mg Tablet.) 81 mg PO DAILY [facility] Atenolol (Atenolol 50 Mg Tablet) 50 mg PO DAILY [facility]; Protocol Atorvastatin Calcium (Atorvastatin Calcium 80 Mg Tablet) 80 mg PO BEDTIME [facility] Last Admin: 09/21/21 19:36 Dose: 80 mg Documented by: MARILYN Clopidogrel Bisulfate (Clopidogrel Bisulfate 75 Mg Tablet) 75 mg PO DAILY [facility] Ezetimibe (Ezetimibe 10 Mg Tablet) 10 mg PO DAILY [facility] Folic Acid (Folic Acid 1 Mg Tablet) 1 mg PO DAILY [facility] Ceftriaxone Sodium 1 gm/ (Sodium Chloride) 50 mls @ 100 mls/hr IV Q24H [facility] Last Infusion: 09/21/21 17:49 Dose: 0 mls/hr Documented by: ABI Mirtazapine (Mirtazapine 15 Mg Tablet) 15 mg PO BEDTIME [facility] Last Admin: 09/21/21 19:36 Dose: 15 mg Documented by: MARILYN Pharmacy Consult (Consult Rx Perform Med Rec) 1 each MISCELLANE ONCE PRN PRN Reason: Consult order Sodium Chloride (0.9 % Sodium Chloride Flush 3 Ml Syringe) 3 ml IVFLUSH QSHIFT [facility] Last Admin: 09/21/21 19:42 Dose: 3 ml Documented by: MARILYN Tamsulosin HCl (Tamsulosin Hcl 0.4 Mg Capsule) 0.4 mg PO BEDTIME [facility] Last Admin: 09/21/21 19:36 Dose: 0.4 mg Documented by: MARILYN Labs CBC & Chem 7: 09/22/21 05:52 09/22/21 05:52 Labs: Laboratory Results - last 24 hr 09/22/21 09/22/21 09/22/21 05:52 05:52 05:52 MCV 96.0 MCH 31.0 MCHC 32.3 RDW 14.3 Plt Count 165 MPV 11.3 Absolute Nucleated RBC 0.000 Nucleated RBC % (auto) 0.0 PT 33.6 H INR 2.9 H Anion Gap 10 L Estim Creat Clear Calc 40.8 Estimated GFR 51 Fasting Glucose 91 Calcium 8.2 L D Assessment and Plan (1) HARSHA (acute kidney injury): Status: Acute Assessment and Plan: ?81M presented with fall complicated by HARSHA on CKD II, rib and clavicle fracture harsha on ckd II holding arb, received gentle hydration, improved, monitor left rib and clavicle fracture after mechanical fall OT, pt eval pain control patient not interested in SNF but after discussion with family appears not to be safe at home. will continue to recommend STR at SNF, discharge home would be unsafe, however, patient does appear to have capacity to leave AMA. paroxysmal atrial fibrillation on coumadin with supratherapeutic inr atenolol, inr now 2.9 - will restart coumadin monitor inr cad with ischemic cardiomyopathy EF 35% plavix, coumadin, statin, atenolol, holding arb for harsha bph flomax htn relative hypotension, arb on hold dnr dni Quality Stroke Does the patient have a stroke diagnosis?: No VTE Prior VTE?: No VTE Risk Level:: Medical - moderate - high VTE Device Contraindication: Treatment Not Indicated VTE Drug Contraindication: N/A - Med Ordered
[2021-09-22] MEDS: 0.9 % Sodium Chloride Flush 3 ML SYRINGE IVFLUSH ×3 (11:57→23:27)
[2021-09-22 12:00] VITALS: BP 119/56; PULSE 78; RESP 18; TEMP 36.7; O2SAT 93
[2021-09-22 16:00] VITALS: BP 99/52; PULSE 73; RESP 18; TEMP 37.1; O2SAT 92
--- NOTE | 2021-09-22 16:19 | MHC.CM.PN ---
Patient lives alone, no prior services, occasional private hire help from a neighbor. Owns walker, does not drive, family and friends transport to appointments. Family expresses concerns of inability to care for him anylonger and his lack of functional safety in the home; he falls frequently and is unable to get himself up and utilizes EMS multiple times per week to help get him off of the floor. Per family, patient would most likely be upset if SNF is D/C plan, but would not be surprised as the family has been approaching it with him a lot as of late. D/C plan is home vs SNF.
[2021-09-22] MEDS: Warfarin Sodium 5 MG TABLET PO (17:21)
[2021-09-22] MEDS: cefTRIAXone sodium 1 GM in 0.9 % Sodium Chloride 50 ML IV (17:21)
[2021-09-22 19:18] VITALS: BP 125/61; PULSE 78; RESP 18; TEMP 36.6; O2SAT 94
[2021-09-22] MEDS: Atorvastatin Calcium 80 MG TABLET PO (23:27)
[2021-09-22] MEDS: Mirtazapine 15 MG TABLET PO (23:27)
[2021-09-22] MEDS: Tamsulosin HCL 0.4 MG CAPSULE PO (23:27)
[2021-09-23] VITALS (8 sets, daily range): BP systolic 103–130; BP diastolic 53–62; PULSE 60–75; RESP 16–20; TEMP 36.6–37.3; O2SAT 92–98
[2021-09-23] MEDS: Acetaminophen 325 MG TABLET 650 MG PO (04:16)
[2021-09-23 06:11] LABS: Hematocrit 29.9 % (42.0-52.0); Hemoglobin 9.9 g/dl (14.0-18.0); Mean Corpuscular HGB Conc 33.1 g/dl (31.0-36.0); Mean Corpuscular Volume 93.7 fL (80.0-98.0); Mean Platelet Volume 11.1 fL (9.4-12.4); Platelet Count 187 X10*3/uL (160-400); Red Blood Count 3.19 X10*6/uL (4.60-5.80); White Blood Count 8.2 X10*3/uL (4.8-10.8)
[2021-09-23 06:28] LABS: Prothrombin Time 22.8 SEC (9.9-13.0)
[2021-09-23 06:39] LABS: Anion Gap 12 (12-20); Blood Urea Nitrogen 20 mg/dL (9-16); Calcium 8.4 mg/dL (8.4-10.2); Carbon Dioxide 23 mmol/L (22-29); Chloride 110 mmol/L (96-108); Creatinine Clr Calc Pharmacy 45.9; Estimated Glomerular Filt Rate 58; Glucose Fasting 101 mg/dL (60-99); Sodium 141 mmol/L (135-145)
[2021-09-23] MEDS: 0.9 % Sodium Chloride Flush 3 ML SYRINGE IVFLUSH ×3 (09:17→20:18)
[2021-09-23] MEDS: Ezetimibe 10 MG TABLET PO (09:18)
[2021-09-23] MEDS: Clopidogrel Bisulfate 75 MG TABLET PO (09:19)
[2021-09-23] MEDS: Folic Acid 1 MG TABLET PO (09:19)
[2021-09-23] MEDS: Aspirin Enteric Coated 81 MG TABLET.DR PO (09:19)
[2021-09-23] MEDS: atenoloL 50 MG TABLET PO (09:19)
--- NOTE | 2021-09-23 09:51 | P.PNIM_ITS ---
Subjective Subjective Date of Service: 09/23/21 Interval History: cc: fall interval history: wants to go home Cardiovascular Cardiovascular: Reports no additional cardiovascular complaints Respiratory Respiratory: Reports no additional respiratory complaints Physical Exam Vital Signs: Vital Signs: Last Vital Signs Temp 98.2 F 09/23/21 07:58 Pulse 60 09/23/21 07:58 Resp 18 09/23/21 07:58 BP 122/56 L 09/23/21 07:58 Pulse Ox 95 09/23/21 07:58 BMI result Body Mass Index 27.2 General: AO X 3, agitated, wants to go home Resp:? CTA bilateral, no accessory muscles used CVS: S1,S2,RRR GI: soft, non tender, non distended Neuro:? motor grossly intact, alert MSK: using lue despite instructions Psych: appears to have cognitive impair, but demonstrates understanding of situation enough to make discharge decisions Objective Data Active Medications Acetaminophen (Acetaminophen 325 Mg Tablet) 650 mg PO Q6H PRN PRN Reason: Pain, Mild (Pain Scale 1-3) Last Admin: 09/23/21 04:16 Dose: 650 mg Documented by: ALLA Aspirin (Aspirin Enteric Coated 81 Mg Tablet.) 81 mg PO DAILY [facility] Last Admin: 09/23/21 09:19 Dose: 81 mg Documented by: ALICE Atenolol (Atenolol 50 Mg Tablet) 50 mg PO DAILY [facility]; Protocol Last Admin: 09/23/21 09:19 Dose: 50 mg Documented by: ALICE Atorvastatin Calcium (Atorvastatin Calcium 80 Mg Tablet) 80 mg PO BEDTIME [facility] Last Admin: 09/22/21 23:27 Dose: 80 mg Documented by: ALLA Clopidogrel Bisulfate (Clopidogrel Bisulfate 75 Mg Tablet) 75 mg PO DAILY [facility] Last Admin: 09/23/21 09:19 Dose: 75 mg Documented by: ALICE Ezetimibe (Ezetimibe 10 Mg Tablet) 10 mg PO DAILY [facility] Last Admin: 09/23/21 09:18 Dose: 10 mg Documented by: ALICE Folic Acid (Folic Acid 1 Mg Tablet) 1 mg PO DAILY [facility] Last Admin: 09/23/21 09:19 Dose: 1 mg Documented by: ALICE Ceftriaxone Sodium 1 gm/ (Sodium Chloride) 50 mls @ 100 mls/hr IV Q24H [facility] Last Infusion: 09/22/21 17:54 Dose: 0 mls/hr Documented by: ABI Mirtazapine (Mirtazapine 15 Mg Tablet) 15 mg PO BEDTIME [facility] Last Admin: 09/22/21 23:27 Dose: 15 mg Documented by: ALLA Pharmacy Consult (Consult Rx Perform Med Rec) 1 each MISCELLANE ONCE PRN PRN Reason: Consult order Sodium Chloride (0.9 % Sodium Chloride Flush 3 Ml Syringe) 3 ml IVFLUSH QSHIFT [facility] Last Admin: 09/23/21 09:17 Dose: 3 ml Documented by: ALICE Tamsulosin HCl (Tamsulosin Hcl 0.4 Mg Capsule) 0.4 mg PO BEDTIME [facility] Last Admin: 09/22/21 23:27 Dose: 0.4 mg Documented by: ALLA Warfarin Sodium (Warfarin Sodium 5 Mg Tablet) 5 mg PO DAILY@1800 [facility] Last Admin: 09/22/21 17:21 Dose: 5 mg Documented by: ABI Labs CBC & Chem 7: 09/23/21 06:05 09/23/21 06:05 Labs: Laboratory Results - last 24 hr 09/23/21 09/23/21 09/23/21 06:05 06:05 06:05 MCV 93.7 MCH 31.0 MCHC 33.1 RDW 14.0 Plt Count 187 MPV 11.1 Absolute Nucleated RBC 0.000 Nucleated RBC % (auto) 0.0 PT 22.8 H INR 2.0 H Anion Gap 12 Estim Creat Clear Calc 45.9 Estimated GFR 58 Fasting Glucose 101 H Calcium 8.4 Microbiology Microbiology Results: Microbiology 09/21/21 Unknown Urine Culture - Final Urine clean catch - Urine springer top Escherichia coli Assessment and Plan (1) HARSHA (acute kidney injury): Status: Acute Assessment and Plan: ?81M presented with fall complicated by HARSHA on CKD II, rib and clavicle fracture harsha on ckd II holding arb, received gentle hydration, improved uti ecoli continue rocephin left rib and clavicle fracture after mechanical fall OT, pt eval pain control patient not interested in SNF but after discussion with family appears not to be safe at home. will continue to recommend STR at SNF, discharge home would be unsafe, however, patient does appear to have capacity to leave AMA. paroxysmal atrial fibrillation on coumadin with supratherapeutic inr atenolol, inr now 2 - back on coumadin monitor inr cad with ischemic cardiomyopathy EF 35% plavix, coumadin, statin, atenolol, holding arb for harsha bph flomax htn relative hypotension, arb on hold dnr dni Quality Stroke Does the patient have a stroke diagnosis?: No VTE Prior VTE?: No VTE Risk Level:: Medical - moderate - high VTE Device Contraindication: Treatment Not Indicated VTE Drug Contraindication: N/A - Med Ordered
--- NOTE | 2021-09-23 14:32 | MHC.CM.PN ---
PATIENT IS REFUSING ANY REHAB REFERRALS. HE IS AWARE THAT FAMILY WANTS HIM TO GO TO REHAB AND STILL DENIES. HE IS ALSO AWARE THAT REFERRALS ARE IN FOR [facility] SERVICES. CURRENTLY NO OFFERS OF SERVICE AND ONE REASON IS LACK OF CONTRACT WITH HIS INSURANCE CASE MANAGEMENT STILL ATTEMPTING
--- NOTE | 2021-09-23 15:30 | MHC.CM.PN ---
OF THIS NOTE, NO [facility]NA OFFERS
[2021-09-23] MEDS: Warfarin Sodium 5 MG TABLET PO (17:04)
[2021-09-23] MEDS: cefTRIAXone sodium 1 GM in 0.9 % Sodium Chloride 50 ML IV (17:04)
[2021-09-23] MEDS: Tamsulosin HCL 0.4 MG CAPSULE PO (20:18)
[2021-09-23] MEDS: Atorvastatin Calcium 80 MG TABLET PO (20:18)
[2021-09-23] MEDS: Mirtazapine 15 MG TABLET PO (20:18)
[2021-09-24 03:56] VITALS: BP 117/53; PULSE 109; RESP 16; TEMP 36.8; O2SAT 95
[2021-09-24 06:10] LABS: INTERNATIONAL NORM RATIO 1.8 (0.9-1.1); Prothrombin Time 20.8 SEC (9.9-13.0)
[2021-09-24 07:03] VITALS: BP 121/71; PULSE 62; RESP 18; TEMP 36.1; O2SAT 95
[2021-09-24] MEDS: Clopidogrel Bisulfate 75 MG TABLET PO (08:09)
[2021-09-24] MEDS: Ezetimibe 10 MG TABLET PO (08:09)
[2021-09-24] MEDS: 0.9 % Sodium Chloride Flush 3 ML SYRINGE IVFLUSH (08:09)
[2021-09-24] MEDS: Folic Acid 1 MG TABLET PO (08:09)
[2021-09-24] MEDS: Aspirin Enteric Coated 81 MG TABLET.DR PO (08:09)
[2021-09-24] MEDS: atenoloL 50 MG TABLET PO (08:09)
[2021-09-24 08:30] VITALS: BP 121/71; PULSE 62; O2SAT 95
[2021-09-24 11:17] VITALS: BP 115/62; PULSE 73; RESP 20; TEMP 35.5; O2SAT 93
--- NOTE | 2021-09-24 11:36 | MHC.CM.PN ---
Addendum entered by Sushila Palma 09/24/21 14:34: NO [facility] OFFERING SECONDARY TO INSURANCE PLAN AND NOT BEING CONTRACTED. CASE MANAGEMENT TO LEAVE [facility] [employer] PHONE NUMBER FOR SON (WHO IS PROVIDING TRANSPORT) Original Note: NO [facility] OFFERS. PATIENT IS STILL REFUSING SHORT TERM REHAB, STATING I AM GOING HOME TODAY. WHEN ASKED HOW HE WILL GET HOME, HE REPLIES MY SON HOSPITALIST AWARE
--- NOTE | 2021-09-24 12:42 | P.DS_ITS ---
DS: Providers Provider Date of Service: 09/24/21 Date of admission: 09/21/21 10:04 Primary care physician: Elver Germain MD DS: Diagnosis Discharge Diagnosis (1) HARSHA (acute kidney injury): Status: Resolved (2) Left rib fracture: Status: Resolved (3) Fracture of left clavicle: Status: Resolved (4) Urinary tract infection: Status: Acute (5) Fall: Status: Acute DS: Summary Hospital Course Hospital Course: Admission note HPI 81-year-old male who lives alone presented with fall.? 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 denies loss of consciousness, reports that it was mechanical in nature.? He fell onto his left side and had severe pain, he yelled out in his neighbors helped him call EMS.? In ED found to have mild acute kidney injury with a creatinine of 1.66, increased from a baseline of 1.25.? Also noted to have left clavicular fracture and left 3rd rib fracture. Hospital course Patient was admitted to the hospital after sustaining a fall at home. Images emergency were consistent with fracture the left side drip clavicle with no displacement. Placed on a sling with good response. Evaluated by Physical therapy who recommended short-term rehab but the patient kept refusing going to any place other than home. Discussed with him by me, other providers, nurses and case management social worker but insisted on going home. He has capacity to take decisions and he understands the risk of falling again at home. kidney function was noted to be mildly elevated but improved with hydration back to normal baseline. Noticed to have urinary tract infection. Urine culture grew E coli. Treated with IV ceftriaxone during the hospital stay and will be discharged home on p.o. Ceftin. Time Spent with Patient Time attestation: Total time spent providing and/or coordinating discharge services: Discharge coordination time: Greater than 30 minutes Quality: Stroke Does the patient have a stroke diagnosis?: No Physical Exam Verdana 4l Vital Signs: Verdana 4d Verdana 4d Vital Signs: Verdana 4d Verdana 4Bd Last Vital Signs Verdana 4d [employer] New 4d [employer] New 4d Temp 96 F L 09/24/21 11:17 [employer] New 4d Pulse 73 09/24/21 11:17 [employer] New 4d Resp 20 09/24/21 11:17 BP 115/62 09/24/21 11:17 Pulse Ox 93 09/24/21 11:17 BMI result Body Mass Index 27.2 Const: Other: Constitutional : Alert, oriented, not in distress, not confused Neck : Normal inspection, Supple Cardiovascular : RRR, S1 S2, no lower extremity edema Respiratory : Good bilateral air entry, no crackles, wheezes or rhonchi Gastrointestinal: soft, lax, Normal bowel sounds, Non tender Skin : Warm, Dry Neurological : Alert & oriented x3, in good state of mind, No focal deficit DS: Data Data Completed and Pending Labs on day of discharge: Laboratory Results - last 24 hr 09/24/21 05:53 PT 20.8 H INR 1.8 H Discharge Plan Discharge Patient Disposition: Home Health Service Discharge Diagnosis: Urinary tract infection Fall Left rib, clavicle fracture Referrals: Po,Elver Jameson MD [Primary Care Provider] - 1 Week Discharge Medications: New cefuroxime axetil 250 mg tablet 250 mg PO BID Qty: 8 0RF Continued clopidogrel 75 mg tablet 75 mg PO DAILY 90 Days Qty: 90 3RF folic acid 1 mg tablet 1 mg PO DAILY Qty: 90 1RF tamsulosin 0.4 mg Capsule 0.4 mg PO DAILY@1700 0RF mirtazapine 15 mg Tablet 15 mg PO BEDTIME 0RF ezetimibe 10 mg Tablet 10 mg PO DAILY 0RF warfarin [Augtoven] 5 mg tablet 7.5 mg PO SUMOTUTHFR@1800 0RF Rx Instructions: per coumadin clinic protocol - 7.5 mg SuMoTuThFr and 0 mg WeSa starting 09/20/21 aspirin 81 mg Tablet,Delayed Release (Dr/Ec) 81 mg PO DAILY 0RF atenolol 50 mg tablet 1 tab PO DAILY 0RF warfarin 5 mg tablet 5 mg PO DAILY 0RF Protocol: Dose Management Condition: Thursday (Week One) Dose/Route: 7.5 mg Instruction: 1.5 x 5 mg tablets Condition: Thursday Dose/Route: 7.5 mg Instruction: 1.5 x 5 mg tablets Condition: Thursday Dose/Route: 7.5 mg Instruction: 1.5 x 5 mg tablets Condition: Thursday Dose/Route: 0 mg Instruction: 0 tablets Condition: Dose/Route: 7.5 mg Instruction: 1.5 x 5 mg tablets Condition: Thursday Dose/Route: 7.5 mg Instruction: 1.5 x 5 mg tablets Condition: Thursday Dose/Route: 0 mg Instruction: 0 tablets Condition: Thursday (Week Two) Dose/Route: 5 mg Instruction: 1 x 5 mg tablet Condition: Thursday Dose/Route: 7.5 mg Instruction: 1.5 x 5 mg tablets Condition: Thursday Dose/Route: 7.5 mg Instruction: 1.5 x 5 mg tablets Condition: Thursday Dose/Route: 5 mg Instruction: 1 x 5 mg tablet Condition: Dose/Route: 7.5 mg Instruction: 1.5 x 5 mg tablets Condition: Thursday Dose/Route: 7.5 mg Instruction: 1.5 x 5 mg tablets Condition: Thursday Dose/Route: 7.5 mg Instruction: 1.5 x 5 mg tablets Protocol Text: Adjustment Start Date: Thursday09/20/21 INR Value: 4.8 INR Date: 09/20/21 Recheck Date: 09/24/21 Additional Instructions: DO NOT TAKE ANY WARFARIN THURSDAY atorvastatin 80 mg tablet 80 mg PO DAILY 0RF tramadol 50 mg tablet 50 mg PO TID PRN (Reason: Pain (Scale Score 4-6)) 0RF Discharge Orders: Discharge Order (Routine); Ordered 09/24/21 Ordered By: Simba Gutierrez Diet: advance to usual diet Activity on Discharge: As tolerated Stand Alone Forms: Patient Portal Discharge page Care Plan Goals: Read below Health Concerns: Read below Plan of Treatment: Read below Assessment: You were admitted to the hospital after sustaining a fall at home. Found to have fracture in your rib and clavicle on the left side. Controlled with sling and pain medications. Noted to have urinary tract infection treated with IV antibiotics. To continue oral Ceftin You were evaluated by physical therapy team who recommended short-term rehab but you insisted on going back home. Continue Ceftin as prescribed to do physical therapy at home Follow-up with PCP as outpatient Discharge Date/Time: 09/24/21 15:15
== END 2021-09-24 15:15 | disposition home health service (06) ==
LOC: HO.ED 05:06 → HO.EDOVER 10:22 → HO.S3 14:02
PROVIDERS: Admitting Provider Internal Medicine; Emergency Provider Student in an Organized Health Care Education/Training Program; PCP Internal Medicine; Visit Provider Student in an Organized Health Care Education/Training Program
DX: N17.9 Acute kidney failure, unspecified (principal); S22.32XA Fracture of one rib, left side, initial encounter for closed fracture; S42.035A Nondisplaced fracture of lateral end of left clavicle, initial encounter for closed fracture; S80.212A Abrasion, left knee, initial encounter; S80.211A Abrasion, right knee, initial encounter; S20.212A Contusion of left front wall of thorax, initial encounter; W01.0XXA Fall on same level from slipping, tripping and stumbling without subsequent striking against object, initial encounter; Z91.81 History of falling; Y93.89 Activity, other specified; Y92.009 Unspecified place in unspecified non-institutional (private) residence as the place of occurrence of the external cause; Y99.8 Other external cause status; N39.0 Urinary tract infection, site not specified; B96.20 Unspecified Escherichia coli [E. coli] as the cause of diseases classified elsewhere; I44.0 Atrioventricular block, first degree; I48.0 Paroxysmal atrial fibrillation; I48.92 Unspecified atrial flutter; I21.4 Non-ST elevation (NSTEMI) myocardial infarction; I25.10 Atherosclerotic heart disease of native coronary artery without angina pectoris; I12.9 Hypertensive chronic kidney disease with stage 1 through stage 4 chronic kidney disease, or unspecified chronic kidney disease; N18.2 Chronic kidney disease, stage 2 (mild); I25.2 Old myocardial infarction; I63.81 Other cerebral infarction due to occlusion or stenosis of small artery; E78.00 Pure hypercholesterolemia, unspecified; J84.10 Pulmonary fibrosis, unspecified; R09.02 Hypoxemia; F41.8 Other specified anxiety disorders; Z20.822 Contact with and (suspected) exposure to COVID-19; Z98.890 Other specified postprocedural states; Z79.01 Long term (current) use of anticoagulants; Z79.899 Other long term (current) drug therapy
CPT/HCPCS: 36415; 70450; 71250; 72125; 73564; 80048; 80053; 81001; 85025; 85027; 85610; 87086; 87088; 87186; 87635; 93005; 96361; 96374; 96375; 97110; 97116; 97162; 97165; 99218; 99285; J0696; J1170; J2270; J2405

== ENCOUNTER 2021-09-27 18:09 | Outpatient (REF) | payer OTHER, SELFPAY ==
[2021-09-27 18:17] LABS: Appearance Urine CLEAR; Color Urine YELLOW; Glucose Urine UA NEG (NEG); Leukocyte Esterase Urine NEG (NEG); Nitrite Urine NEG (NEG); PH 5.5 (5.0-8.0); Specific Gravity - Urine >= 1.030 (1.005-1.025); Urine Blood NEG (NEG); Urine Ketones NEG (NEG); Urine Protein TRACE MG/DL (NEG-TRACE)
== END 2021-09-27 18:10 | disposition home or self-care (01) ==
LOC: HO.LNP 18:09
PROVIDERS: Visit Provider Nurse Practitioner Family
DX: N39.0 Urinary tract infection, site not specified (principal)
CPT/HCPCS: 81003

== ENCOUNTER → 2021-10-01 11:03 | Outpatient (BNVA) | payer OTHER, SELFPAY | PROVIDERS: PCP Internal Medicine; Visit Provider Internal Medicine | DX: I48.0 Paroxysmal atrial fibrillation (principal); Z51.81 Encounter for therapeutic drug level monitoring; Z79.01 Long term (current) use of anticoagulants | CPT/HCPCS: Q3014 ==

== ENCOUNTER 2021-10-04 10:37 | Outpatient (REF) | payer OTHER, SELFPAY ==
[2021-10-04 11:21] LABS: INTERNATIONAL NORM RATIO 1.5 (0.9-1.1); Prothrombin Time 17.1 SEC (9.9-13.0)
[2021-10-04 11:29] LABS: Appearance Urine CLEAR; Color Urine YELLOW; Glucose Urine UA NEG (NEG); Leukocyte Esterase Urine NEG (NEG); Nitrite Urine NEG (NEG); Specific Gravity - Urine 1.015 (1.005-1.025); Urine Blood NEG (NEG); Urine Ketones NEG (NEG); Urine Protein NEG (NEG-TRACE)
[2021-10-04 11:32] LABS: Estimated Average Glucose 114 mg/dL; Hemoglobin A1c % 5.6 %
[2021-10-04 11:46] LABS: Mucus Urine TRACE /LPF; Squamous Epithelial Cell Urine 2+ /LPF; WBC Urine 0 /HPF (0-4)
[2021-10-04 11:55] LABS: Alanine Aminotransferase 9 U/L (0-40); Albumin Level 3.5 g/dL (3.5-5.0); Alkaline Phosphatase 87 U/L (39-117); Anion Gap 13 (12-20); Aspartate Amino Transferase 15 U/L (5-37); Bilirubin Total 0.7 mg/dL (0.0-1.0); Blood Urea Nitrogen 15 mg/dL (9-16); Calcium 8.7 mg/dL (8.4-10.2); Carbon Dioxide 27 mmol/L (22-29); Chloride 106 mmol/L (96-108); Estimated Glomerular Filt Rate 56; Glucose Random 123 mg/dL (60-115); Potassium 4.4 mmol/L (3.3-5.1); Sodium 142 mmol/L (135-145); Total Protein 6.3 g/dL (6.5-8.0)
== END 2021-10-04 10:38 | disposition home or self-care (01) ==
LOC: HO.LHD 10:37
PROVIDERS: Visit Provider Internal Medicine
DX: I48.0 Paroxysmal atrial fibrillation (principal); R32 Unspecified urinary incontinence; R73.02 Impaired glucose tolerance (oral); Z51.81 Encounter for therapeutic drug level monitoring; Z79.01 Long term (current) use of anticoagulants
CPT/HCPCS: 36415; 80053; 81001; 83036; 85610; 87086; Q3014

== ENCOUNTER 2021-10-08 11:51 | Outpatient (REF) | payer OTHER, SELFPAY ==
[2021-10-08 10:57] LABS: INTERNATIONAL NORM RATIO 1.2 (0.9-1.1); Prothrombin Time 13.9 SEC (9.9-13.0)
[2021-10-08 14:07] LABS: Alanine Aminotransferase 8 U/L (0-40); Albumin Level 3.5 g/dL (3.5-5.0); Alkaline Phosphatase 91 U/L (39-117); Anion Gap 13 (12-20); Aspartate Amino Transferase 13 U/L (5-37); Bilirubin Total 0.5 mg/dL (0.0-1.0); Blood Urea Nitrogen 23 mg/dL (9-16); Calcium 8.6 mg/dL (8.4-10.2); Carbon Dioxide 24 mmol/L (22-29); Chloride 108 mmol/L (96-108); Estimated Glomerular Filt Rate 53; Glucose Random 137 mg/dL (60-115); Potassium 4.5 mmol/L (3.3-5.1); Sodium 140 mmol/L (135-145); Total Protein 6.2 g/dL (6.5-8.0)
== END 2021-10-08 11:52 | disposition home or self-care (01) ==
LOC: HO.LHD 11:51
PROVIDERS: Visit Provider Internal Medicine
DX: S22.32XA Fracture of one rib, left side, initial encounter for closed fracture (principal); S42.002A Fracture of unspecified part of left clavicle, initial encounter for closed fracture; R79.89 Other specified abnormal findings of blood chemistry; I48.0 Paroxysmal atrial fibrillation
CPT/HCPCS: 36415; 80053; 85610; Q3014

== ENCOUNTER 2021-10-11 06:40 | Outpatient (REF) | payer OTHER, SELFPAY | END 2021-10-11 06:41 | disposition home or self-care (01) | LOC: HO.LHD 06:40 | PROVIDERS: Visit Provider Internal Medicine | DX: I48.0 Paroxysmal atrial fibrillation (principal) | CPT/HCPCS: Q3014 ==

== ENCOUNTER → 2021-10-16 11:06 | Outpatient (BNVA) | payer OTHER, SELFPAY | PROVIDERS: PCP Internal Medicine; Visit Provider Internal Medicine | DX: I48.0 Paroxysmal atrial fibrillation (principal); Z51.81 Encounter for therapeutic drug level monitoring; Z79.01 Long term (current) use of anticoagulants | CPT/HCPCS: 85610; 99211 ==

== ENCOUNTER → 2021-11-12 12:37 | Outpatient (BNVA) | payer OTHER, SELFPAY | PROVIDERS: PCP Internal Medicine; Referring Provider Internal Medicine; Visit Provider Internal Medicine Cardiovascular Disease | DX: I25.10 Atherosclerotic heart disease of native coronary artery without angina pectoris (principal); I48.0 Paroxysmal atrial fibrillation | CPT/HCPCS: 99212 ==

== ENCOUNTER 2022-01-28 10:37 | Outpatient (REF) | payer OTHER, SELFPAY ==
--- NOTE | ~2022-01-28 | XR_ITS ---
EXAMINATION: XR HIP, RIGHT CLINICAL INFORMATION: Right hip pain. COMPARISON: 06/15/2019 pelvis. TECHNIQUE: Two views of the right hip. FINDINGS: There is again noted to be severe degenerative change of the right hip with loss of hip joint space superiorly and with articular irregularity and remodeling of the femoral head with subchondral cyst formation and sclerosis. No definite acute fracture is appreciated however the small degree of femoral head collapse appears to have been present on previous pelvic study of 06/15/2019. There are prominent vascular calcifications present. There is some spurring of the greater trochanter. XR/XR hip RT min 2V IMPRESSION: Severe degenerative change of the right hip.
[2022-01-28 10:55] LABS: MANUAL DIFF FLAG NO
[2022-01-28 11:08] LABS: Basophils Absolute Auto 0.1 X10*3/uL (0.0-0.2); Basophils Percent Auto 0.9 % (0-2); Eosinophils Absolute Auto 0.6 X10*3/uL (0.0-0.4); Eosinophils Percent Auto 7.5 % (0-4); Hematocrit 31.5 % (42.0-52.0); Hemoglobin 10.3 g/dl (14.0-18.0); Imm Gran Abs Auto 0.03 X10*3/uL (0.00-0.03); Imm Gran Pct Auto 0.4 % (0.0-0.4); Immature Retic Fraction 9.6 % (2.3-13.4); Lymphocytes Absolute Auto 1.9 X10*3/uL (1.2-4.9); Lymphocytes Percent Auto 24.1 % (20-40); Mean Corpuscular HGB Conc 32.7 g/dl (31.0-36.0); Mean Corpuscular Hemoglobin 30.2 pg (27.0-33.0); Mean Corpuscular Volume 92.4 fL (80.0-98.0); Mean Platelet Volume 11.1 fL (9.4-12.4); Monocytes Absolute Auto 0.7 X10*3/uL (0.1-1.2); Monocytes Percent Auto 8.3 % (2-11); Neutrophils Absolute Auto 4.6 x10*3/uL (2.0-8.3); Neutrophils Percent Auto 58.8 % (45-73); Platelet Count 193 X10*3/uL (160-400); Red Blood Count 3.41 X10*6/uL (4.60-5.80); Red Cell Distribution Width 13.1 % (11.0-16.0); Reticulocyte Percent 0.9 % (0.5-1.8); White Blood Count 7.8 X10*3/uL (4.8-10.8)
[2022-01-28 11:11] LABS: INTERNATIONAL NORM RATIO 1.9 (0.9-1.1); Prothrombin Time 22.3 SEC (9.9-13.0)
[2022-01-28 11:25] LABS: Estimated Average Glucose 117 mg/dL; Hemoglobin A1c % 5.7 %
[2022-01-28 11:42] LABS: Alanine Aminotransferase 10 U/L (0-40); Albumin Level 3.7 g/dL (3.5-5.0); Alkaline Phosphatase 72 U/L (39-117); Anion Gap 12 (12-20); Aspartate Amino Transferase 14 U/L (5-37); Bilirubin Total 0.6 mg/dL (0.0-1.0); Blood Urea Nitrogen 20 mg/dL (9-16); Carbon Dioxide 26 mmol/L (22-29); Chloride 107 mmol/L (96-108); Estimated Glomerular Filt Rate 40; Glucose Random 106 mg/dL (60-115); Iron 64 mcg/dL (45-160); Percent Iron Saturation 26 % (15-50); Potassium 4.4 mmol/L (3.3-5.1); Sodium 141 mmol/L (135-145); Total Iron Binding Capacity 245 mcg/dL (228-428); Total Protein 6.5 g/dL (6.5-8.0); Unsaturated Iron Binding 181 ug/dL
[2022-01-28 11:54] LABS: Ferritin 165 ng/mL (20-250); Free T4 (Free Thyroxine) 0.92 ng/dL (0.71-1.85)
[2022-01-28 12:49] LABS: Folate > 20.0 ng/mL (> or = 4.0); Vitamin B12 272 pg/mL (200-900)
== END 2022-01-28 10:38 | disposition home or self-care (01) ==
LOC: HO.LAB 10:37
PROVIDERS: PCP Internal Medicine; Visit Provider Internal Medicine
DX: M25.551 Pain in right hip (principal); I25.10 Atherosclerotic heart disease of native coronary artery without angina pectoris; R73.02 Impaired glucose tolerance (oral); I48.0 Paroxysmal atrial fibrillation
CPT/HCPCS: 36415; 73502; 80053; 82607; 82728; 82746; 83036; 83540; 84439; 84443; 85025; 85045; 85610

== ENCOUNTER → 2022-02-28 11:25 | Outpatient (BNVA) | payer OTHER, SELFPAY | PROVIDERS: PCP Internal Medicine; Visit Provider Urology | DX: N40.1 Benign prostatic hyperplasia with lower urinary tract symptoms (principal); N13.8 Other obstructive and reflux uropathy; R35.0 Frequency of micturition; Z79.899 Other long term (current) drug therapy | CPT/HCPCS: 51798; 99212 ==

== ENCOUNTER 2022-04-12 10:49 | Outpatient (REF) | payer OTHER, SELFPAY ==
[2022-04-12 11:36] LABS: Anion Gap 14 (12-20); Blood Urea Nitrogen 16 mg/dL (9-16); Calcium 8.5 mg/dL (8.4-10.2); Carbon Dioxide 22 mmol/L (22-29); Chloride 108 mmol/L (96-108); Cholesterol 95 mg/dL; Estimated Glomerular Filt Rate > 60; Glucose Random 97 mg/dL (60-115); HDL Cholesterol 29 mg/dL; LDL Cholesterol Calculated 48 mg/dl; Potassium 3.8 mmol/L (3.3-5.1); Sodium 140 mmol/L (135-145); Triglycerides 90 mg/dL
== END 2022-04-12 10:50 | disposition home or self-care (01) ==
LOC: HO.LAB 10:49
PROVIDERS: PCP Internal Medicine; Visit Provider Internal Medicine
DX: N28.9 Disorder of kidney and ureter, unspecified (principal); E78.00 Pure hypercholesterolemia, unspecified
CPT/HCPCS: 36415; 80048; 80061

== ENCOUNTER → 2022-09-12 09:30 | Outpatient (BNVA) | payer OTHER, SELFPAY | PROVIDERS: PCP Internal Medicine; Visit Provider Urology | DX: N40.1 Benign prostatic hyperplasia with lower urinary tract symptoms (principal); N13.8 Other obstructive and reflux uropathy | CPT/HCPCS: 99212 ==

== ENCOUNTER 2022-10-19 09:13 | Inpatient (IN) | payer OTHER, SELFPAY ==
--- NOTE | ~2022-10-19 | CT_ITS ---
EXAMINATION: CT LUMBAR SPINE WITHOUT CONTRAST CLINICAL INFORMATION: Mid lower back pain without known injury COMPARISON: CT abdomen and pelvis of December 09, 2013 TECHNIQUE: CT lumbar spine with coronal and sagittal reconstruction This CT examination was performed using dose optimization techniques as appropriate, variously including the following: *Automated exposure control *Adjustment of mA and/or kV according to patient size (this includes techniques or standardized protocols for targeted exams where dose is matched to indication/reason for exam; i.e. extremities or head) *Use of iterative reconstruction technique DLP; 524 mGy-cm FINDINGS: There is osteopenia of visualized bones. There is fusion of the sacroiliac bones bilaterally. Due to the osteopenia present a nondisplaced suspicious for fracture of the sacrum cannot be excluded. There is a superior endplate compression fracture of L3 with approximately 30% loss of height centrally. No retropulsion of fragments is identified. This finding was not present on CT study of December 09, 2013 however the chronicity of the fracture since study of December 09, 2013 and KUB of December 12, 2016 is not known. There is bilateral facet arthropathy seen at the L5-S1 level. No significant bony neural foraminal encroachment is appreciated. There is significant aortoiliac calcified plaque present. There is a 5.5 cm in diameter infrarenal abdominal aortic aneurysm which previously measured 4.8 cm in diameter on study of December 09, 2013. No periaortic inflammatory changes seen to suggest leak. The aneurysm does not extend into the aortic bifurcation. The inferior mesenteric artery takes off from the aneurysmal portion. 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 Previously this measured 1.[address]/CT lumbar spine wo IV con IMPRESSION: Diffuse osteopenia. Possible sacral insufficiency fracture cannot excluded. Mild superior endplate compression fracture of L3 that was not identified on study of December 12, 2016 but which chronicity I cannot tell. Infrarenal abdominal aortic aneurysm without significant change and for which follow-up CT or ultrasound could be performed in 6 months.
--- NOTE | ~2022-10-19 | CT_ITS ---
EXAMINATION: CT FACIAL BONES WITHOUT CONTRAST CLINICAL INFORMATION: Left orbital swelling and pain. COMPARISON: None TECHNIQUE: CT facial bones with coronal and sagittal reconstructions. This CT examination was performed using dose optimization techniques as appropriate, variously including the following: *Automated exposure control *Adjustment of mA and/or kV according to patient size (this includes techniques or standardized protocols for targeted exams where dose is matched to indication/reason for exam; i.e. extremities or head) *Use of iterative reconstruction technique DLP: 450 mGy-cm FINDINGS: There is motion artifact present degrading study. There is soft tissue swelling seen overlying the left frontal bone and orbit. No intraconal abnormality of the orbits are identified. There is some mucosal thickening seen within some left-sided ethmoid sinuses. No air-fluid levels are seen within the maxillary sinuses. The orbital floors appear intact. No frontal or ethmoid sinus abnormality is seen. No nasal bone fracture is appreciated. There is some irregularity about the maxillary spine which may be related to previous fracture Pterygoid plates intact. No orbital fractures identified. Temporomandibular joints unremarkable. Mastoid air cells unremarkable. Ostiomeatal complexes patent bilaterally. There is an oblique lucency of the left coronoid process of the mandible likely related to motion artifact. No definite adjacent soft tissue abnormality is appreciated.. CT/CT facial bones wo IV con IMPRESSION: Soft tissue swelling. No definite acute facial bone fracture appreciated.
--- NOTE | ~2022-10-19 | CT_ITS ---
EXAMINATION: CT HEAD WITHOUT CONTRAST CLINICAL INFORMATION: Question head injury. Left eye swelling. On anticoagulation. COMPARISON: September 21, 2021 TECHNIQUE: Contiguous axial imaging was performed from the skull base to vertex without intravenous administration of contrast. This CT examination was performed using dose optimization techniques as appropriate, variously including the following: *Automated exposure control *Adjustment of mA and/or kV according to patient size (this includes techniques or standardized protocols for targeted exams where dose is matched to indication/reason for exam; i.e. extremities or head) *Use of iterative reconstruction technique DLP: 759 mGy-cm FINDINGS: No intracranial hemorrhage is identified. No significant mass effect or midline structure shift is seen. No abnormal extra-axial fluid collection noted. There is a large amount of periventricular white matter low density seen consistent with microangiopathy. There is an old right frontal infarct which also involves the right caudate head and anterior limb of the right internal capsule. There is stable prominence of the ventricles, sulci, and cisterns. Mild bilateral ethmoid sinus disease. Mastoid air cells are aerated bilaterally. CT/CT head/brain wo IV con IMPRESSION: No acute intracranial pathology. Ischemic changes as described.
--- NOTE | ~2022-10-19 | XR_ITS ---
EXAMINATION: XR CHEST CLINICAL INFORMATION: Shortness of breath, hypoxia COMPARISON: X-ray 07/19/2021 TECHNIQUE: 2 views of the chest were obtained. FINDINGS: Rotated positioning. Low lung volumes. Stable cardiac mediastinal silhouette. Aortic arch calcification. Mild central vascular prominence. There is increased interstitial lung markings, with peripheral hazy opacities in bilateral lungs. This may reflect mild pulmonary edema versus infectious/inflammatory process. Small left pleural effusion. No pneumothorax is seen. Osteopenia. Degeneration the visualized spine. XR/XR chest 2V IMPRESSION: Interstitial prominence and peripheral hazy opacities in bilateral lungs, could reflect pulmonary edema versus infectious/inflammatory process. Small left pleural effusion.
[2022-10-19 09:27] VITALS: PULSE 77; O2SAT 90
[2022-10-19 09:39] VITALS: BP 160/58; PULSE 70; RESP 16; TEMP 37.1; O2SAT 96; BMI 24.7
--- NOTE | 2022-10-19 09:47 | ECG_ITS ---
Test Reason : WEAKNESS Blood Pressure : / mmHG Vent. Rate : 071 BPM Atrial Rate : 071 BPM P-R Int : 238 ms QRS Dur : 092 ms QT Int : 410 ms P-R-T Axes : 028 -23 -17 degrees QTc Int : 445 ms Sinus rhythm with 1st degree A-V block with occasional Premature ventricular complexes Left ventricular hypertrophy with repolarization abnormality ( R in aVL ) Abnormal ECG When compared with ECG of 21-SEP-2021 01:40, Premature ventricular complexes are now Present Referred By: Angelika Cheema Electronically Signed By:SHONDA REDDY
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
[2022-10-19 10:37] LABS: Lactic Acid 1.5 mmol/L (0.5-2.0)
[2022-10-19 10:48] LABS: Troponin-I High Sensitivity 19.9 ng/L (<3.5-35.0)
[2022-10-19 10:49] LABS: B Type Natriuretic Peptide 169 pg/mL (<100)
[2022-10-19 10:52] LABS: COVID-19 Test Negative (Negative); IDNOW Serial# 16C4AD1C; IDNOW Serial# BCCEAD1C; Influenza A Negative (Negative); Influenza B2 Negative (Negative)
[2022-10-19 11:29] LABS: Appearance Urine Turbid; Color Urine Yellow; Glucose Urine UA Negative (Negative); Leukocyte Esterase Urine Large (3+) (Negative); Nitrite Urine Negative (Negative); PH 5.5 (5.0-9.0); UMIC TRIGGER UACC YES; Urine Blood Moderate (2+) (Negative); Urine Ketones Negative (Negative); Urine Protein 100 (2+) mg/dL (Neg-Trace)
[2022-10-19 11:32] LABS: INTERNATIONAL NORM RATIO 1.3 (0.9-1.1); Prothrombin Time 14.8 SEC (10.0-13.1)
[2022-10-19 11:44] LABS: Alanine Aminotransferase 9 U/L (0-40); Albumin Level 4.1 g/dL (3.5-5.0); Alkaline Phosphatase 83 U/L (39-117); Anion Gap 16 (12-20); Aspartate Amino Transferase 18 U/L (5-37); Bilirubin Total 0.9 mg/dL (0.0-1.0); Blood Urea Nitrogen 24 mg/dL (9-16); Calcium 8.7 mg/dL (8.4-10.2); Carbon Dioxide 24 mmol/L (22-29); Chloride 102 mmol/L (96-108); Creatinine Clr Calc Pharmacy 43.7; Estimated Glomerular Filt Rate 54; Glucose Random 121 mg/dL (60-115); Lipase 9 U/L (8-78); Magnesium 1.9 mg/dL (1.6-2.6); Sodium 138 mmol/L (135-145); Total Protein 6.9 g/dL (6.5-8.0)
[2022-10-19 11:55] LABS: Bacteria Urine 4+ (None Seen); Hyaline Casts Urine 0-2 /LPF (0-2); UACC Culture Trigger YES; WBC Urine >50 /HPF (0-5)
[2022-10-19 12:26] LABS: MANUAL DIFF FLAG NO
[2022-10-19 12:28] LABS: Basophils Absolute Auto 0.1 X10*3/uL (0.0-0.2); Basophils Percent Auto 0.5 % (0-2); Hematocrit 35.2 % (42.0-52.0); Hemoglobin 11.8 g/dl (14.0-18.0); Imm Gran Abs Auto 0.05 X10*3/uL (0.00-0.03); Imm Gran Pct Auto 0.4 % (0.0-0.4); Lymphocytes Absolute Auto 1.4 X10*3/uL (1.2-4.9); Lymphocytes Percent Auto 11.2 % (20-40); Mean Corpuscular HGB Conc 33.5 g/dl (31.0-36.0); Mean Corpuscular Hemoglobin 29.3 pg (27.0-33.0); Mean Corpuscular Volume 87.3 fL (80.0-98.0); Mean Platelet Volume 10.6 fL (9.4-12.4); Monocytes Absolute Auto 1.4 X10*3/uL (0.1-1.2); Neutrophils Absolute Auto 9.6 x10*3/uL (2.0-8.3); Neutrophils Percent Auto 76.9 % (45-73); Platelet Count 207 X10*3/uL (160-400); Red Blood Count 4.03 X10*6/uL (4.60-5.80); Red Cell Distribution Width 13.2 % (11.0-16.0); White Blood Count 12.5 X10*3/uL (4.8-10.8)
--- NOTE | 2022-10-19 13:11 | PHA.MEDREC ---
Pharmacy Consult ? Medication Reconciliation Pharmacy has completed the medication reconciliation. Patient and son are poor historians so we did med rec using claim history. Patient is on vitamin d and thinks it's 1000 units.
--- NOTE | 2022-10-19 13:17 | PC.NURSE ---
PT REMAINS CONFUSED NOT, SON IS AT BEDSIDE. CHANGED AND REPOSITIONED NEEDED. UNABLE TO WEAN O2. WILL RESPONDS TO VOICE BUT QUICKLY FALLS BACK TO SLEEP. WAITING ON RESULTS AND DISPO.
[2022-10-19] MEDS: Fluorescein Sodium STRIP 1 STRIP EYE-LEFT (13:25)
[2022-10-19] MEDS: Tetracaine HCl/PF 0.5% Oph Sol 4 ML DROPS 1 DROP EYE-LEFT (13:25)
[2022-10-19] MEDS: cefTRIAXone sodium 1 GM in 0.9 % Sodium Chloride 50 ML IV (13:40)
[2022-10-19] MEDS: Doxycycline Hyclate 100 MG in 0.9 % Sodium Chloride 250 ML 166.67 MG IV (13:41)
[2022-10-19] MEDS: Erythromycin Base 0.5% Oph Oin 1 GM TUBE 1 CM EYE-LEFT (13:42)
[2022-10-19] MEDS: Morphine Sulfate 2 MG/ML CARTRIDGE IVPUSH (13:44)
--- NOTE | 2022-10-19 14:22 | PM.IMHP ---
History of Present Illness Date of Service: 10/19/22 Attending physician on admission: Rodger Puckett Chief Complaint: back pain 82-year-old male with history of AAA, interstitial lung disease, CAD with H/O does NSTEMI 07/2021, ischemic cardiomyopathy, paroxysmal atrial fibrillation anticoagulated with Xarelto hypertension, hypercholesterolemia, GERD history of multiple vertebral fractures following mechanical fall in 07/2019, and anxiety/depression presented to the ED earlier today for evaluation of severe low back pain. The patient denied any falls. Recalls being in a seated position bending forward with sudden-onset severe low back pain. Denies any other trauma. No known history of osteoporosis. Since then has been attempting to treat his pain with tramadol which she is prescribed which had been helping but pain continued to worsen prompting to call EMS for transfer to the hospital. The patient is unable to provide much history secondary to poorly-controlled pain and his son does also assist with history but is somewhat a minimal historian. However on arrival, pt noted to desaturate to 86% in the ED and tachypneic in the 30s so patient was placed on 2l supplemental O2 (non oxygen dependent at home). He did inform ED provider he tested positive for COVID-19 8 days ago with symptoms including nasal congestion, nonproductive cough. On exam patient also noted to have faint erythema and soft tissue swelling left forehead/scalp with several vesicular lesions noted on the scalp and left upper lid with copious purulent drainage from the eye noted. The patient reports hitting his head lightly against a glass the was on the tray of his walker, but no significant trauma. The area is tender to palpation. ED provider did stain the eye which was noted to be negative for dendritic lesions, but did show a large linear corneal abrasion. Afebrile in the ED but with leukocytosis 12.5. Renal function baseline, electrolyte levels normal result for CO2 of 24. Troponin negative, BNP 169. UA with 3+ leukocytes, negative nitrites, 2+ blood, 2+ protein, positive urinary sediment, 4+ bacteria. Denies any urinary symptoms. Head CTnegative for any acute intracranial abnormality. Facial CT showing soft tissue swelling but no fracture. CT lumbar spine shows diffuse osteopenia with possible sacral insufficiency fracture and mild superior endplate compression fracture of L3 not previously seen on imaging but with undetermined chronicity. Infrarenal abdominal aortic aneurysm is without any significant change, follow-up advised in 6 months. Checks x-ray showing interstitial prominence and peripheral hazy opacities in bilateral lungs could reflect pulmonary edema versus infectious/inflammatory process with small left pleural effusion. Denies any fevers, chills, n/v/d, bladder/bowel dysfunction, abd pain, saddle anaesthesia, weakness, or paresthesias, shortness of breath, or chest pain. Still has intermittent cough. Reports intermittent 10/10 low back pain. Requesting pain meds. Review of Systems Review of Systems: General: No fevers, malaise, unintentional weight loss HEENT: +blurred vision left eye. No diplopia. No sore throat, nasal congestion, rhinorrhea, sinus pain, ear pain Cardiovascular: No chest pain, palpitations, or leg edema Respiratory: No shortness of breath, wheezing. +cough GI: No abdominal pain, nausea, vomiting, diarrhea, constipation, melena, hematochezia : No dysuria, hematuria, increased urinary frequency, decreased urinary output MSK: No myalgia. +low back pain Neuro: No headaches, weakness, paresthesias Skin: No rashes or lesions [facility] Medical History Abdominal aortic aneurysm Acetabular fracture Anxiety and depression Coronary artery disease CVA (cerebral vascular accident) GERD (gastroesophageal reflux disease) Hypercholesterolemia Hypertension Interstitial lung disease Left rib fracture NSTEMI (non-ST elevated myocardial infarction) Paroxysmal A-fib Rotator cuff dysfunction Tubular adenoma of colon Ulnar neuropathy Vertebral fracture Family History Father Medical history unknown Mother Medical history unknown Surgical History History of appendectomy History of bilateral cataract extraction History of bursectomy History of hemorrhoidectomy S/P cardiac catheterization Social History Household Members: Significant Other Housing: Apartment Do you presently have visiting nurse or other home services: No Alcohol intake: never Patient Tobacco Use Status: Never used Tobacco Smoked in Last 30 Days: No e-Cigarette/Vaping Use: Never Used Second Hand Smoke Exposure: No Use of substances other than those prescribed or required for medical reasons: No Advance Directives: Yes Advance Directives Information Provided: No Advance Directives on File: No service: No Current occupational status: retired Cognitive needs: No Hearing needs: Yes Vision needs: Yes Meds Allergies Allergy/AdvReac Type Severity Reaction Status Date / Time No Known Allergies Allergy Verified 09/12/22 09:43 [No Known Allergies*] Active Medications: Current Medications Acetaminophen (Acetaminophen 325 Mg Tablet) 650 mg PO Q6H PRN PRN Reason: Pain, Mild, fever Clopidogrel Bisulfate (Clopidogrel Bisulfate 75 Mg Tablet) 75 mg PO DAILY [facility] Albuterol Sulfate 2.5 mg/ (Ipratropium [place] 0.5 mg) 0 mg INHALE RQ4H WHILE AWAKE PRN PRN Reason: Shortness of Breath/Wheezing Docusate Sodium (Docusate Sodium 100 Mg Capsule) 100 mg PO DAILY PRN PRN Reason: Constipation Doxazosin Mesylate (Doxazosin Mesylate 2 Mg Tablet) 4 mg PO BEDTIME [facility] Folic Acid (Folic Acid 1 Mg Tablet) 1 mg PO DAILY [facility] Ceftriaxone Sodium 1 gm/ (Sodium Chloride) 50 mls @ 100 mls/hr IV Q24H [facility] Stop: 10/23/22 14:29 Doxycycline Hyclate 100 mg/ (Sodium Chloride) 250 mls @ 166.67 mls/hr IV Q12H [facility] Stop: 10/24/22 03:29 Acyclovir Sodium 730 mg/ (Sodium Chloride) 264.6 mls @ 264.6 mls/hr IV Q12H [facility] Stop: 10/26/22 03:59 Methylprednisolone Sodium Succinate (Methylprednisolone Sod Succ 40 Mg/Ml Vial) 40 mg IVPUSH Q12H [facility] Morphine Sulfate (Morphine Sulfate 4 Mg/Ml Cartridge) 2 mg IVPUSH Q4H PRN; Protocol PRN Reason: Pain, Severe (Pain Scale 7-10) Neomycin/Polymyxin/Dexamethasone (Neomy/Polymyx/Dexameth Oph [place] 5 Ml Bottle) 2 drop EYE-LEFT RQ4H WHILE AWAKE [facility] Stop: 10/26/22 12:01 Ondansetron HCl (Ondansetron Hcl 4 Mg/2 Ml Vial) 4 mg IVPUSH Q8H PRN PRN Reason: Nausea and Vomiting Pharmacy Consult (Consult Rx Perform Med Rec) 1 each MISCELLANE ONCE PRN PRN Reason: Consult order Rivaroxaban (Rivaroxaban 20 Mg Tablet) 20 mg PO DAILY [facility] Sodium Chloride (0.9 % Sodium Chloride Flush 3 Ml Syringe) 3 ml IVFLUSH QSHIFT [facility] Tramadol HCl (Tramadol Hcl 50 Mg Tablet) 50 mg PO TID PRN PRN Reason: Pain, Moderate (Pain Scale 4-6 Vitamin D (Cholecalciferol (Vitamin D3) 25 Mcg Tablet) 25 mcg PO DAILY [facility] Home Medications Medication Instructions Recorded Confirmed Last Taken Type cholecalciferol (vitamin D3) 25 25 mcg PO DAILY 10/19/22 10/19/22 10/18/22 History mcg (1,000 unit) tablet (Vitamin D3) terazosin 5 mg capsule 1 cap PO BEDTIME 10/19/22 10/19/22 10/18/22 History Physical Exam Vital Signs and Narrative: Vital Signs: Last Vital Signs Temp 98.7 F 10/19/22 09:39 Pulse 70 10/19/22 09:39 Resp 16 10/19/22 09:39 BP 160/58 H 10/19/22 09:39 Pulse Ox 96 10/19/22 09:39 O2 Del Method 10/19/22 09:39 Oxygen Flow Rate 4 10/19/22 09:39 BMI result Body Mass Index 24.7 Constitutional - Awake and Alert, No apparent distress Eyes - PERRLA, EOMI. Thin yellow film noted across the sclera of the left eye with seropurulent drainage Cardiovascular - S1S2, RRR, No edema Respiratory - Normal lung expansion, Normal respiratory effort, No respiratory distress, CTA bilaterally Gastrointestinal - NT / ND; +BS; No rebound or guarding Extremities - no calf tenderness bilaterally, no swelling Musculoskeletal - Significant midline ttp to palpation. Skin - Warm/Dry. Mild soft tissue swelling with faint erythema and scattered scabbed vesibular lesions of the left V1 dermatome distribution affecting the left eye with significant swelling of the left upper lid with vesicular lesions Neurological - Alert & oriented x3, strength bue and ble in tact though pt is hesitant to move LE, appropriate tone Psychological - Appropriate affect Results Labs 10/19/22 12:22 10/19/22 11:14 Labs: Laboratory Results - last 24 hr 10/19/22 10/19/22 10/19/22 10:18 10:18 10:18 MCV MCH MCHC RDW Plt Count MPV Immature Gran % (Auto) Neut % (Auto) Lymph % (Auto) [place] % (Auto) Eos % (Auto) Baso % (Auto) Lymph # (Auto) [place] # (Auto) Eos # (Auto) Baso # (Auto) Abs Immat Gran (auto) Absolute Neuts (auto) Absolute Nucleated RBC Nucleated RBC % (auto) PT INR Anion Gap Estim Creat Clear Calc Estimated GFR Random Glucose Lactic Acid Calcium Magnesium Total Bilirubin AST ALT Alkaline Phosphatase Troponin I High Sens 19.9 B-Natriuretic Peptide Total Protein Albumin Lipase Urine Color Urine Appearance Urine pH Ur Specific [place] Urine Protein Urine Glucose (UA) Urine Ketones Urine Blood Urine Nitrite Ur Leukocyte Esterase Urine RBC Urine WBC Ur Squamous Epith Cells Urine Bacteria Hyaline Casts COVID-19 (NICOLE) Negative COVID-19 Clin Com See Note Influenza Type A (YONATHAN) Negative Influenza Type B (YONATHAN) Negative Influenza A & B Note See Note 10/19/22 10/19/22 10/19/22 10:18 10:18 11:14 MCV MCH MCHC RDW Plt Count MPV Immature Gran % (Auto) Neut % (Auto) Lymph % (Auto) [place] % (Auto) Eos % (Auto) Baso % (Auto) Lymph # (Auto) [place] # (Auto) Eos # (Auto) Baso # (Auto) Abs Immat Gran (auto) Absolute Neuts (auto) Absolute Nucleated RBC Nucleated RBC % (auto) PT INR Anion Gap 16 Estim Creat Clear Calc 43.7 Estimated GFR 54 Random Glucose 121 H Lactic Acid 1.5 Calcium 8.7 Magnesium 1.9 Total Bilirubin 0.9 AST 18 ALT 9 Alkaline Phosphatase 83 Troponin I High Sens B-Natriuretic Peptide 169 H Total Protein 6.9 Albumin 4.1 Lipase 9 Urine Color Urine Appearance Urine pH Ur Specific [place] Urine Protein Urine Glucose (UA) Urine Ketones Urine Blood Urine Nitrite Ur Leukocyte Esterase Urine RBC Urine WBC Ur Squamous Epith Cells Urine Bacteria Hyaline Casts COVID-19 (NICOLE) COVID-19 Clin Com Influenza Type A (YONATHAN) Influenza Type B (YONATHAN) Influenza A & B Note 10/19/22 10/19/22 10/19/22 11:14 11:14 12:22 MCV 87.3 MCH 29.3 MCHC 33.5 RDW 13.2 Plt Count 207 MPV 10.6 Immature Gran % (Auto) 0.4 Neut % (Auto) 76.9 H Lymph % (Auto) 11.2 L [place] % (Auto) 11.0 Eos % (Auto) 0.0 Baso % (Auto) 0.5 Lymph # (Auto) 1.4 [place] # (Auto) 1.4 H Eos # (Auto) 0.0 Baso # (Auto) 0.1 Abs Immat Gran (auto) 0.05 H Absolute Neuts (auto) 9.6 H Absolute Nucleated RBC 0.000 Nucleated RBC % (auto) 0.0 PT 14.8 H INR 1.3 H Anion Gap Estim Creat Clear Calc Estimated GFR Random Glucose Lactic Acid Calcium Magnesium Total Bilirubin AST ALT Alkaline Phosphatase Troponin I High Sens B-Natriuretic Peptide Total Protein Albumin Lipase Urine Color Yellow Urine Appearance Turbid Urine pH 5.5 Ur Specific [place] 1.020 Urine Protein 100 (2+) H Urine Glucose (UA) Negative Urine Ketones Negative Urine Blood Moderate (2+) H Urine Nitrite Negative Ur Leukocyte Esterase Large (3+) H Urine RBC 3-5 H Urine WBC >50 H Ur Squamous Epith Cells 3-5 Urine Bacteria 4+ Hyaline Casts 0-2 COVID-19 (NICOLE) COVID-19 Clin Com Influenza Type A (YONATHAN) Influenza Type B (YONATHAN) Influenza A & B Note Imaging Radiologist's Impressions: Impressions Chest X-Ray 10/19/22 10:31 IMPRESSION: Interstitial prominence and peripheral hazy opacities in bilateral lungs, could reflect pulmonary edema versus infectious/inflammatory process. Small left pleural effusion. Lumbar Spine CT 10/19/22 11:01 IMPRESSION: Diffuse osteopenia. Possible sacral insufficiency fracture cannot excluded. Mild superior endplate compression fracture of L3 that was not identified on study of December 12, 2016 but which chronicity I cannot tell. Infrarenal abdominal aortic aneurysm without significant change and for which follow-up CT or ultrasound could be performed in [address] 10/19/22 11:06 IMPRESSION: Soft tissue swelling. No definite acute facial bone fracture appreciated. Head CT 10/19/22 11:06 IMPRESSION: No acute intracranial pathology. Ischemic changes as described. Assessment and Plan (1) Acute hypoxemic respiratory failure: Status: Acute (2) Bilateral pneumonia: Status: Acute (3) Herpes zoster ophthalmicus: Status: Acute (4) Compression fracture of L3 vertebra: Status: Acute Plan 82-year-old male with history of AAA, interstitial lung disease, CAD with H/O does NSTEMI 07/2021, ischemic cardiomyopathy, paroxysmal atrial fibrillation anticoagulated with Xarelto hypertension, hypercholesterolemia, GERD history of multiple vertebral fractures admitted for post-covid pneumonia with acute hypoxemic respiratory failure and herpes ophthalmicus. # acute hypoxemic respiratory failure- related to post COVID-19 pneumonia -continue supplemental O2 to maintain oximetry around 92% -negative for COVID-19, influenza -treat pneumonia as below # post COVID-19 pneumonia -CXR showing interstitial prominence and peripheral hazy opacities in bilateral lungs -tested positive for COVID-19 8 days ago. Currently negative for COVID-19 and influenza -continue IV ceftriaxone and doxycycline b.i.d. (initiated 10/19) -continue supplemental O2 as above, titrate as tolerated -IV methylprednisolone b.i.d. -DuoNebs q.4h p.r.n. -symptomatic management -leukocytosis 12.5, follow CBC. 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 (renally adjusted) x 7day (initiated10/19) -neomycin/polymyxin/dexamethasone ophthalmic suspension q.4h x7 days (Initiated 10/19) -appreciate Infectious Disease input # possible UTI- patient asymptomatic -UA with 3+ leuks, negative nitrites, 3+ blood, 4+ bacteria, and urinary sediment -continue ceftriaxone as above -follow cultures # acute L3 compression fracture -CT showing compression deformity at L3 of unspecified chronicity. However given patient history, suspect this is acute -pain management using pain scale with Tylenol, tramadol, and morphine p.r.n. -PT eval -outpatient follow-up advised # diffuse osteopenia noted on imaging -add calcium and vitamin-D supplement -outpatient follow-up advised # paroxysmal atrial fibrillation-rate controlled -continue Xarelto -not on rate control drugs # CAD/ischemic cardiomyopathy/HLD/AAA -continue Plavix, Xarelto. Not on statin # interstitial lung disease -not on home inhalers DVT prophylaxis-on Xarelto Full code-discussed with patient and son Patient requires inpatient stay of at least 2 midnights for management of acute hypoxemic respiratory failure with post COVID pneumonia requiring supplemental O2 and IV antibiotics as well as further management of localized herpes ophthalmicus requiring IV antiviral therapy, topical antibiotic and corticosteroid drops, an expert consultations Time Spent With Patient Time: Total time managing care of this patient today ____ minutes. Quality Stroke Does the patient have a stroke diagnosis?: No VTE Prior VTE?: No VTE Risk Level:: Medical - moderate - high VTE Device Contraindication: Treatment Not Indicated VTE Drug Contraindication: N/A - Med Ordered
[2022-10-19 16:27] VITALS: BP 169/60; PULSE 65; RESP 16; TEMP 37.1; O2SAT 92
[2022-10-19] MEDS: Acyclovir Sodium 730 MG in 0.9 % Sodium Chloride 250 ML 264.6 MG IV (17:16)
[2022-10-19] MEDS: Calcium + Vitamin D 250 MG TABLET 500 MG PO (17:16)
[2022-10-19] MEDS: methylPREDNISolone Sod Succ 40 MG/ML VIAL IVPUSH (17:16)
[2022-10-19] MEDS: 0.9 % Sodium Chloride Flush 3 ML SYRINGE IVFLUSH (17:17)
--- NOTE | 2022-10-19 17:21 | PC.NURSE ---
Addendum entered by Nicole Louie 10/19/22 17:50: WHEN PROVIDER SPOKE WITH PT FOR CLARIFICATION PT STATED NOT WAS HOT Original Note: WAS IN WITH THE PATIENT AND ASKED HIM HE IS MORE ALERT AT THIS TIME WHAT HAPPENED TO YOUR EYE? I DONT WANT TO SAY ITS EMBARRASSING TOLD HIM HE HAS NOTHING TO WORRY ABOUT, THIS IS A SAFE PLACE. PT ADMITTED TO ME HE WAS WALKING WITH A FOOD TRAY ON TOP OF HIS WALKER TRIPPED AND FELL FOOD TRAY WENT FLYING CONTAINING HOT LIQUIDS AND SPLASHED ON HEAD/EYE
[2022-10-19] MEDS: Morphine Sulfate 4 MG/ML CARTRIDGE 2 MG IVPUSH (17:56)
[2022-10-19 20:42] VITALS: BP 121/36; PULSE 65; RESP 18
[2022-10-19] MEDS: Doxazosin Mesylate 2 MG TABLET 4 MG PO (20:54)
[2022-10-19] MEDS: NeoMY/Polymyx/Dexameth Oph Sus 5 ML BOTTLE 2 DROP EYE-LEFT (20:54)
[2022-10-20] VITALS: BP 99/50; PULSE 66; RESP 20; TEMP 36.3; O2SAT 94
[2022-10-20] MEDS: methylPREDNISolone Sod Succ 40 MG/ML VIAL IVPUSH ×2 (02:55→14:00)
[2022-10-20] MEDS: Doxycycline Hyclate 100 MG in 0.9 % Sodium Chloride 250 ML 166.67 MG IV ×2 (02:56→14:41)
[2022-10-20] MEDS: traMADoL HCL 50 MG TABLET PO ×3 (03:03→21:01)
[2022-10-20 03:09] VITALS: BP 134/62; PULSE 66; RESP 18; TEMP 36.3; O2SAT 95
[2022-10-20] MEDS: Acyclovir Sodium 730 MG in 0.9 % Sodium Chloride 250 ML 264.6 MG IV ×2 (05:27→16:31)
[2022-10-20 06:30] LABS: MANUAL DIFF FLAG NO
[2022-10-20 06:34] LABS: Basophils Percent Auto 0.1 % (0-2); Hematocrit 33.2 % (42.0-52.0); Hemoglobin 11.2 g/dl (14.0-18.0); Imm Gran Abs Auto 0.02 X10*3/uL (0.00-0.03); Imm Gran Pct Auto 0.3 % (0.0-0.4); Lymphocytes Absolute Auto 0.8 X10*3/uL (1.2-4.9); Lymphocytes Percent Auto 10.6 % (20-40); Mean Corpuscular HGB Conc 33.7 g/dl (31.0-36.0); Mean Corpuscular Hemoglobin 29.6 pg (27.0-33.0); Mean Corpuscular Volume 87.6 fL (80.0-98.0); Mean Platelet Volume 11.1 fL (9.4-12.4); Monocytes Absolute Auto 0.2 X10*3/uL (0.1-1.2); Monocytes Percent Auto 2.7 % (2-11); Neutrophils Absolute Auto 6.4 x10*3/uL (2.0-8.3); Neutrophils Percent Auto 86.3 % (45-73); Platelet Count 175 X10*3/uL (160-400); Red Blood Count 3.79 X10*6/uL (4.60-5.80); Red Cell Distribution Width 13.1 % (11.0-16.0); White Blood Count 7.4 X10*3/uL (4.8-10.8)
[2022-10-20 06:58] LABS: Anion Gap 17 (12-20); Blood Urea Nitrogen 31 mg/dL (9-16); Calcium 8.6 mg/dL (8.4-10.2); Carbon Dioxide 20 mmol/L (22-29); Chloride 106 mmol/L (96-108); Creatinine Clr Calc Pharmacy 49.5; Estimated Glomerular Filt Rate > 60; Glucose Random 133 mg/dL (60-115); Potassium 4.1 mmol/L (3.3-5.1); Sodium 139 mmol/L (135-145)
[2022-10-20 07:32] VITALS: BP 97/49; PULSE 77; RESP 18; TEMP 36.8; O2SAT 93
[2022-10-20] MEDS: Calcium + Vitamin D 250 MG TABLET 500 MG PO ×2 (08:04→16:31)
[2022-10-20] MEDS: Rivaroxaban 20 MG TABLET PO (08:04)
[2022-10-20] MEDS: Clopidogrel Bisulfate 75 MG TABLET PO (08:05)
[2022-10-20] MEDS: 0.9 % Sodium Chloride Flush 3 ML SYRINGE IVFLUSH ×4 (08:05→19:28)
[2022-10-20] MEDS: NeoMY/Polymyx/Dexameth Oph Sus 5 ML BOTTLE 2 DROP EYE-LEFT ×4 (08:05→19:30)
[2022-10-20] MEDS: Folic Acid 1 MG TABLET PO (08:05)
--- NOTE | 2022-10-20 08:55 | HO.PM.IMPN ---
Subjective Subjective Date of Service: 10/20/22 Interval History: back pain Physical Exam Vital Signs: Vital Signs: Last Vital Signs Temp 98.2 F 10/20/22 07:32 Pulse 77 10/20/22 07:32 Resp 18 10/20/22 07:32 BP 97/49 L 10/20/22 07:32 Pulse Ox 93 10/20/22 07:32 O2 Del Method 10/20/22 07:32 O2 Flow Rate 4 10/20/22 07:32 Oxygen Flow Rate 4 10/19/22 09:39 BMI result Body Mass Index 24.7 General: AO X 3, frail Resp: Crackles bilateral, no accessory muscles used CVS: S1,S2,RRR GI: soft, non tender, non distended left V1 distribution ertyhema with vesicles Objective Data Active Medications Acetaminophen (Acetaminophen 325 Mg Tablet) 650 mg PO Q6H PRN PRN Reason: Pain, Mild, fever Calcium Carbonate/Cholecalciferol (Calcium + Vitamin D 250 Mg Tablet) 500 mg PO BIDWM [facility] Last Admin: 10/20/22 08:04 Dose: 500 mg Documented By: COTEMA Clopidogrel Bisulfate (Clopidogrel Bisulfate 75 Mg Tablet) 75 mg PO DAILY [facility] Last Admin: 10/20/22 08:05 Dose: 75 mg Documented By: COTEMA Albuterol Sulfate 2.5 mg/ (Ipratropium [place] 0.5 mg) 0 mg INHALE RQ4H WHILE AWAKE PRN PRN Reason: Shortness of Breath/Wheezing Docusate Sodium (Docusate Sodium 100 Mg Capsule) 100 mg PO DAILY PRN PRN Reason: Constipation Doxazosin Mesylate (Doxazosin Mesylate 2 Mg Tablet) 4 mg PO BEDTIME [facility] Last Admin: 10/19/22 20:54 Dose: 4 mg Documented By: MCTA Folic Acid (Folic Acid 1 Mg Tablet) 1 mg PO DAILY [facility] Last Admin: 10/20/22 08:05 Dose: 1 mg Documented By: COTEMA Ceftriaxone Sodium 1 gm/ (Sodium Chloride) 50 mls @ 100 mls/hr IV Q24H [facility] Stop: 10/23/22 14:29 Doxycycline Hyclate 100 mg/ (Sodium Chloride) 250 mls @ 166.67 mls/hr IV Q12H [facility] Stop: 10/24/22 03:29 Last Infusion: 10/20/22 05:42 Dose: 0 mls/hr Documented By: MIKE Acyclovir Sodium 730 mg/ (Sodium Chloride) 264.6 mls @ 264.6 mls/hr IV Q12H [facility] Stop: 10/26/22 03:59 Last Infusion: 10/20/22 06:38 Dose: 0 mls/hr Documented By: MIKE Methylprednisolone Sodium Succinate (Methylprednisolone Sod Succ 40 Mg/Ml Vial) 40 mg IVPUSH Q12H [facility] Last Admin: 10/20/22 02:55 Dose: 40 mg Documented By: MIKE Morphine Sulfate (Morphine Sulfate 4 Mg/Ml Cartridge) 2 mg IVPUSH Q4H PRN; Protocol PRN Reason: Pain, Severe (Pain Scale 7-10) Last Admin: 10/19/22 17:56 Dose: 2 mg Documented By: ALECIA Neomycin/Polymyxin/Dexamethasone (Neomy/Polymyx/Dexameth [place] 5 Ml Bottle) 2 drop EYE-LEFT RQ4H WHILE AWAKE [facility] Stop: 10/26/22 12:01 Last Admin: 10/20/22 08:05 Dose: 2 drop Documented By: ANN Ondansetron HCl (Ondansetron Hcl 4 Mg/2 Ml Vial) 4 mg IVPUSH Q8H PRN PRN Reason: Nausea and Vomiting Pharmacy Consult (Consult Rx Perform Med Rec) 1 each MISCELLANE ONCE PRN PRN Reason: Consult order Rivaroxaban (Rivaroxaban 20 Mg Tablet) 20 mg PO DAILY [facility] Last Admin: 10/20/22 08:04 Dose: 20 mg Documented By: COTEMA Sodium Chloride (0.9 % Sodium Chloride Flush 3 Ml Syringe) 3 ml IVFLUSH QSHIFT [facility] Last Admin: 10/20/22 08:05 Dose: 3 ml Documented By: COTEMA Tramadol HCl (Tramadol Hcl 50 Mg Tablet) 50 mg PO TID PRN PRN Reason: Pain, Moderate (Pain Scale 4-6 Last Admin: 10/20/22 03:03 Dose: 50 mg Documented By: MIKE Labs 10/20/22 05:53 10/20/22 05:53 Labs: Laboratory Results - last 24 hr 10/19/22 10/19/22 10/19/22 10:18 10:18 10:18 MCV MCH MCHC RDW Plt Count MPV Immature Gran % (Auto) Neut % (Auto) Lymph % (Auto) [place] % (Auto) Eos % (Auto) Baso % (Auto) Lymph # (Auto) [place] # (Auto) Eos # (Auto) Baso # (Auto) Abs Immat Gran (auto) Absolute Neuts (auto) Absolute Nucleated RBC Nucleated RBC % (auto) PT INR Anion Gap Estim Creat Clear Calc Estimated GFR Random Glucose Lactic Acid Calcium Magnesium Total Bilirubin AST ALT Alkaline Phosphatase Troponin I High Sens 19.9 B-Natriuretic Peptide Total Protein Albumin Lipase Urine Color Urine Appearance Urine pH Ur Specific [place] Urine Protein Urine Glucose (UA) Urine Ketones Urine Blood Urine Nitrite Ur Leukocyte Esterase Urine RBC Urine WBC Ur Squamous Epith Cells Urine Bacteria Hyaline Casts COVID-19 (NICOLE) Negative COVID-19 Clin Com See Note Influenza Type A (YONATHAN) Negative Influenza Type B (YONATHAN) Negative Influenza A & B Note See Note 10/19/22 10/19/22 10/19/22 10:18 10:18 11:14 MCV MCH MCHC RDW Plt Count MPV Immature Gran % (Auto) Neut % (Auto) Lymph % (Auto) [place] % (Auto) Eos % (Auto) Baso % (Auto) Lymph # (Auto) [place] # (Auto) Eos # (Auto) Baso # (Auto) Abs Immat Gran (auto) Absolute Neuts (auto) Absolute Nucleated RBC Nucleated RBC % (auto) PT INR Anion Gap 16 Estim Creat Clear Calc 43.7 Estimated GFR 54 Random Glucose 121 H Lactic Acid 1.5 Calcium 8.7 Magnesium 1.9 Total Bilirubin 0.9 AST 18 ALT 9 Alkaline Phosphatase 83 Troponin I High Sens B-Natriuretic Peptide 169 H Total Protein 6.9 Albumin 4.1 Lipase 9 Urine Color Urine Appearance Urine pH Ur Specific [place] Urine Protein Urine Glucose (UA) Urine Ketones Urine Blood Urine Nitrite Ur Leukocyte Esterase Urine RBC Urine WBC Ur Squamous Epith Cells Urine Bacteria Hyaline Casts COVID-19 (NICOLE) COVID-19 Clin Com Influenza Type A (YONATHAN) Influenza Type B (YONATHAN) Influenza A & B Note 10/19/22 10/19/22 10/19/22 11:14 11:14 12:22 MCV 87.3 MCH 29.3 MCHC 33.5 RDW 13.2 Plt Count 207 MPV 10.6 Immature Gran % (Auto) 0.4 Neut % (Auto) 76.9 H Lymph % (Auto) 11.2 L [place] % (Auto) 11.0 Eos % (Auto) 0.0 Baso % (Auto) 0.5 Lymph # (Auto) 1.4 [place] # (Auto) 1.4 H Eos # (Auto) 0.0 Baso # (Auto) 0.1 Abs Immat Gran (auto) 0.05 H Absolute Neuts (auto) 9.6 H Absolute Nucleated RBC 0.000 Nucleated RBC % (auto) 0.0 PT 14.8 H INR 1.3 H Anion Gap Estim Creat Clear Calc Estimated GFR Random Glucose Lactic Acid Calcium Magnesium Total Bilirubin AST ALT Alkaline Phosphatase Troponin I High Sens B-Natriuretic Peptide Total Protein Albumin Lipase Urine Color Yellow Urine Appearance Turbid Urine pH 5.5 Ur Specific [place] 1.020 Urine Protein 100 (2+) H Urine Glucose (UA) Negative Urine Ketones Negative Urine Blood Moderate (2+) H Urine Nitrite Negative Ur Leukocyte Esterase Large (3+) H Urine RBC 3-5 H Urine WBC >50 H Ur Squamous Epith Cells 3-5 Urine Bacteria 4+ Hyaline Casts 0-2 COVID-19 (NICOLE) COVID-19 Clin Com Influenza Type A (YONATHAN) Influenza Type B (YONATHAN) Influenza A & B Note 10/20/22 10/20/22 05:53 05:53 MCV 87.6 MCH 29.6 MCHC 33.7 RDW 13.1 Plt Count 175 MPV 11.1 Immature Gran % (Auto) 0.3 Neut % (Auto) 86.3 H Lymph % (Auto) 10.6 L [place] % (Auto) 2.7 Eos % (Auto) 0.0 Baso % (Auto) 0.1 Lymph # (Auto) 0.8 L [place] # (Auto) 0.2 Eos # (Auto) 0.0 Baso # (Auto) 0.0 Abs Immat Gran (auto) 0.02 Absolute Neuts (auto) 6.4 Absolute Nucleated RBC 0.000 Nucleated RBC % (auto) 0.0 PT INR Anion Gap 17 Estim Creat Clear Calc 49.5 Estimated GFR > 60 Random Glucose 133 H Lactic Acid Calcium 8.6 Magnesium Total Bilirubin AST ALT Alkaline Phosphatase Troponin I High Sens B-Natriuretic Peptide Total Protein Albumin Lipase Urine Color Urine Appearance Urine pH Ur Specific [place] Urine Protein Urine Glucose (UA) Urine Ketones Urine Blood Urine Nitrite Ur Leukocyte Esterase Urine RBC Urine WBC Ur Squamous Epith Cells Urine Bacteria Hyaline Casts COVID-19 (NICOLE) COVID-19 Clin Com Influenza Type A (YONATHAN) Influenza Type B (YONATHAN) Influenza A & B Note Assessment and Plan (1) Acute respiratory failure with hypoxia: Status: Acute Plan 82-year-old male with history of AAA, interstitial lung disease, CAD with H/O does NSTEMI 07/2021, ischemic cardiomyopathy, paroxysmal atrial fibrillation anticoagulated with Xarelto hypertension, hypercholesterolemia, GERD history of multiple vertebral fractures admitted for post-covid pneumonia with acute hypoxemic respiratory failure and herpes ophthalmicus. 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 (renally adjusted) x 7day (initiated10/19) neomycin/polymyxin/dexamethasone ophthalmic suspension q.4h x7 days (Initiated 10/19) ID eval possible UTI continue ceftriaxone as above follow cultures acute L3 compression fracture CT showing compression deformity at L3 of unspecified chronicity.? However given patient history, suspect this is acute pain management using pain scale with Tylenol, tramadol, and morphine p.r.n. PT eval outpatient follow-up advised diffuse osteopenia noted on imaging calcium and vitamin-D supplement outpatient follow-up advised paroxysmal atrial fibrillation continue Xarelto CAD/ischemic cardiomyopathy/HLD/AAA continue Plavix, Xarelto.? Not on statin DVT prophylaxis-on Xarelto Full code reason for continued hospitalization:hypoxia Time Spent With Patient Time: Total time managing care of this patient today ____ minutes. Quality Stroke Does the patient have a stroke diagnosis?: No VTE Prior VTE?: No VTE Risk Level:: Medical - moderate - high VTE Device Contraindication: Treatment Not Indicated VTE Drug Contraindication: N/A - Med Ordered
--- NOTE | 2022-10-20 09:51 | MHC.EDTECH ---
NUTRITION CONSULT FOR SKIN INTEGRITY. ANALIA=12; RASH, SWELLING, REDNESS TO FACE. DIET=CARDIAC. NO PRESSURE INJURY NOTED. NO ADDITIONAL NUTRITION INTERVENTIONS AT THIS TIME.
[2022-10-20] MEDS: cefTRIAXone sodium 1 GM in 0.9 % Sodium Chloride 50 ML IV (14:01)
[2022-10-20 14:09] VITALS: BP 110/56; PULSE 76; O2SAT 93
[2022-10-20 15:42] VITALS: BP 134/61; PULSE 65; RESP 18; TEMP 36.3; O2SAT 96
--- NOTE | 2022-10-20 16:25 | MHC.CM.PN ---
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
[2022-10-20] MEDS: Doxazosin Mesylate 2 MG TABLET 4 MG PO (19:28)
[2022-10-20 19:34] VITALS: BP 133/62; PULSE 92; RESP 20; TEMP 36.6; O2SAT 92
[2022-10-21] MEDS: methylPREDNISolone Sod Succ 40 MG/ML VIAL IVPUSH ×2 (02:31→15:15)
[2022-10-21] MEDS: Acyclovir Sodium 730 MG in 0.9 % Sodium Chloride 250 ML 264.6 MG IV ×2 (02:32→15:23)
[2022-10-21] MEDS: Doxycycline Hyclate 100 MG in 0.9 % Sodium Chloride 250 ML 166.67 MG IV ×2 (02:32→15:07)
[2022-10-21 03:44] VITALS: BP 147/63; PULSE 60; RESP 17; TEMP 36.4; O2SAT 94
[2022-10-21 06:40] LABS: Anion Gap 11 (12-20); Blood Urea Nitrogen 36 mg/dL (9-16); Calcium 8.8 mg/dL (8.4-10.2); Carbon Dioxide 24 mmol/L (22-29); Chloride 108 mmol/L (96-108); Creatinine Clr Calc Pharmacy 46.6; Estimated Glomerular Filt Rate 58; Glucose Fasting 148 mg/dL (60-99); Potassium 3.7 mmol/L (3.3-5.1); Sodium 139 mmol/L (135-145)
[2022-10-21 06:49] LABS: Hematocrit 31.3 % (42.0-52.0); Hemoglobin 10.6 g/dl (14.0-18.0); Mean Corpuscular HGB Conc 33.9 g/dl (31.0-36.0); Mean Corpuscular Hemoglobin 30.1 pg (27.0-33.0); Mean Corpuscular Volume 88.9 fL (80.0-98.0); Mean Platelet Volume 11.3 fL (9.4-12.4); Platelet Count 197 X10*3/uL (160-400); Red Blood Count 3.52 X10*6/uL (4.60-5.80); Red Cell Distribution Width 13.1 % (11.0-16.0); White Blood Count 8.7 X10*3/uL (4.8-10.8)
[2022-10-21 07:34] VITALS: BP 149/68; PULSE 55; RESP 118; TEMP 36.4; O2SAT 98
--- NOTE | 2022-10-21 08:52 | P.PNIM_ITS ---
Subjective Subjective Date of Service: 10/21/22 Interval History: back pain improving Physical Exam Vital Signs: Vital Signs: Last Vital Signs Temp 97.6 F 10/21/22 07:34 Pulse 55 10/21/22 07:34 Resp 118 H 10/21/22 07:34 BP 149/68 H 10/21/22 07:34 Pulse Ox 98 10/21/22 07:34 O2 Del Method 10/21/22 07:34 O2 Flow Rate 3 10/21/22 07:34 Oxygen Flow Rate 4 10/19/22 09:39 BMI result Body Mass Index 24.7 General: AO X 3, frail Resp: Crackles bilateral, no accessory muscles used CVS: S1,S2,RRR GI: soft, non tender, non distended left V1 distribution ertyhema with vesicles improving Objective Data Active Medications Acetaminophen (Acetaminophen 325 Mg Tablet) 650 mg PO Q6H PRN PRN Reason: Pain, Mild, fever Calcium Carbonate/Cholecalciferol (Calcium + Vitamin D 250 Mg Tablet) 500 mg PO BIDWM [facility] Last Admin: 10/20/22 16:31 Dose: 500 mg Documented By: CLEMENTINEEMA Clopidogrel Bisulfate (Clopidogrel Bisulfate 75 Mg Tablet) 75 mg PO DAILY [facility] Last Admin: 10/20/22 08:05 Dose: 75 mg Documented By: ANN Albuterol Sulfate 2.5 mg/ (Ipratropium [place] 0.5 mg) 0 mg INHALE RQ4H WHILE AWAKE PRN PRN Reason: Shortness of Breath/Wheezing Docusate Sodium (Docusate Sodium 100 Mg Capsule) 100 mg PO DAILY PRN PRN Reason: Constipation Doxazosin Mesylate (Doxazosin Mesylate 2 Mg Tablet) 4 mg PO BEDTIME [facility] Last Admin: 10/20/22 19:28 Dose: 4 mg Documented By: GENI Folic Acid (Folic Acid 1 Mg Tablet) 1 mg PO DAILY [facility] Last Admin: 10/20/22 08:05 Dose: 1 mg Documented By: COTEMA Ceftriaxone Sodium 1 gm/ (Sodium Chloride) 50 mls @ 100 mls/hr IV Q24H [facility] Stop: 10/23/22 14:29 Last Infusion: 10/20/22 14:35 Dose: 0 mls/hr Documented By: COTEMA Doxycycline Hyclate 100 mg/ (Sodium Chloride) 250 mls @ 166.67 mls/hr IV Q12H [facility] Stop: 10/24/22 03:29 Last Infusion: 10/21/22 04:15 Dose: 0 mls/hr Documented By: GENI Acyclovir Sodium 730 mg/ (Sodium Chloride) 264.6 mls @ 264.6 mls/hr IV Q12H [facility] Stop: 10/26/22 03:59 Last Infusion: 10/21/22 03:41 Dose: 0 mls/hr Documented By: GENI Methylprednisolone Sodium Succinate (Methylprednisolone Sod Succ 40 Mg/Ml Vial) 40 mg IVPUSH Q12H [facility] Last Admin: 10/21/22 02:31 Dose: 40 mg Documented By: GENI Morphine Sulfate (Morphine Sulfate 4 Mg/Ml Cartridge) 2 mg IVPUSH Q4H PRN; Prot ocol PRN Reason: Pain, Severe (Pain Scale 7-10) Last Admin: 10/19/22 17:56 Dose: 2 mg Documented By: ALECIA Neomycin/Polymyxin/Dexamethasone (Neomy/Polymyx/Dexameth Oph [place] 5 Ml Bottle) 2 drop EYE-LEFT RQ4H WHILE AWAKE [facility] Stop: 10/26/22 12:01 Last Admin: 10/20/22 19:30 Dose: 2 drop Documented By: GENI Ondansetron HCl (Ondansetron Hcl 4 Mg/2 Ml Vial) 4 mg IVPUSH Q8H PRN PRN Reason: Nausea and Vomiting Pharmacy Consult (Consult Rx Perform Med Rec) 1 each MISCELLANE ONCE PRN PRN Reason: Consult order Rivaroxaban (Rivaroxaban 20 Mg Tablet) 20 mg PO DAILY [facility] Last Admin: 10/20/22 08:04 Dose: 20 mg Documented By: COTEMA Sodium Chloride (0.9 % Sodium Chloride Flush 3 Ml Syringe) 3 ml IVFLUSH QSHIFT [facility] Last Admin: 10/21/22 07:22 Dose: Not Given Documented By: LATONIA Non-Admin Reason: See Note Tramadol HCl (Tramadol Hcl 50 Mg Tablet) 50 mg PO TID PRN PRN Reason: Pain, Moderate (Pain Scale 4-6 Last Admin: 10/20/22 21:01 Dose: 50 mg Documented By: GENI Labs 10/21/22 06:11 10/21/22 06:11 Labs: Laboratory Results - last 24 hr 10/21/22 10/21/22 06:11 06:11 MCV 88.9 MCH 30.1 MCHC 33.9 RDW 13.1 Plt Count 197 MPV 11.3 Absolute Nucleated RBC 0.000 Nucleated RBC % (auto) 0.0 Anion Gap 11 L Estim Creat Clear Calc 46.6 Estimated GFR 58 Fasting Glucose 148 H Calcium 8.8 Microbiology Microbiology Results: Microbiology 10/19/22 Unknown Urine Culture - Preliminary Urine Catheterized - Straight Catheter Escherichia coli 10/19/22 10:18 Blood Culture - Preliminary Blood - Venous No growth after 24 hours. 10/19/22 10:18 Blood Culture - Preliminary Blood - Venous No growth after 24 hours. Assessment and Plan (1) Acute respiratory failure with hypoxia: Status: Acute Plan 82-year-old male with history of AAA, interstitial lung disease, CAD with H/O does NSTEMI 07/2021, ischemic cardiomyopathy, paroxysmal atrial fibrillation anticoagulated with Xarelto hypertension, hypercholesterolemia, GERD history of multiple vertebral fractures admitted for post-covid pneumonia with acute hypoxemic respiratory failure and herpes ophthalmicus. 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 (renally adjusted) x 7day (initiated10/19) neomycin/polymyxin/dexamethasone ophthalmic suspension q.4h x7 days (Initiated 10/19) ID follow up possible UTI continue ceftriaxone as above follow cultures - prelim ecoli acute L3 compression fracture CT showing compression deformity at L3 of unspecified chronicity.? However given patient history, suspect this is acute pain management using pain scale with Tylenol, tramadol, and morphine p.r.n. PT eval outpatient follow-up advised diffuse osteopenia noted on imaging calcium and vitamin-D supplement outpatient follow-up advised paroxysmal atrial fibrillation continue Xarelto CAD/ischemic cardiomyopathy/HLD/AAA continue Plavix, Xarelto.? Not on statin DVT prophylaxis-on Xarelto Full code reason for continued hospitalization:hypoxia Time Spent With Patient Time: Total time managing care of this patient today ____ minutes. Quality Stroke Does the patient have a stroke diagnosis?: No VTE Prior VTE?: No VTE Risk Level:: Medical - moderate - high VTE Device Contraindication: Treatment Not Indicated VTE Drug Contraindication: N/A - Med Ordered
[2022-10-21] MEDS: Folic Acid 1 MG TABLET PO (09:28)
[2022-10-21] MEDS: Rivaroxaban 20 MG TABLET PO (09:28)
[2022-10-21] MEDS: NeoMY/Polymyx/Dexameth Oph Sus 5 ML BOTTLE 2 DROP EYE-LEFT ×4 (09:28→19:45)
[2022-10-21] MEDS: Clopidogrel Bisulfate 75 MG TABLET PO (09:28)
[2022-10-21] MEDS: Calcium + Vitamin D 250 MG TABLET 500 MG PO ×2 (09:28→16:46)
[2022-10-21] MEDS: traMADoL HCL 50 MG TABLET PO (09:50)
[2022-10-21] MEDS: Acetaminophen 325 MG TABLET 650 MG PO (10:27)
--- NOTE | 2022-10-21 13:24 | MHC.IC ---
Patient facial/eye rash should be covered with a dressing at all times.
[2022-10-21] MEDS: cefTRIAXone sodium 1 GM in 0.9 % Sodium Chloride 50 ML IV (15:10)
[2022-10-21 15:25] VITALS: BP 145/63; PULSE 64; RESP 17; TEMP 36.4; O2SAT 96
[2022-10-21] MEDS: Doxazosin Mesylate 2 MG TABLET 4 MG PO (19:44)
[2022-10-21 20:00] VITALS: BP 140/65; PULSE 70; RESP 17; TEMP 36.2; O2SAT 96
[2022-10-22] MEDS: traMADoL HCL 50 MG TABLET PO (01:27)
[2022-10-22] MEDS: methylPREDNISolone Sod Succ 40 MG/ML VIAL IVPUSH ×2 (01:29→14:21)
[2022-10-22] MEDS: Doxycycline Hyclate 100 MG in 0.9 % Sodium Chloride 250 ML 166.67 MG IV ×2 (02:19→15:08)
[2022-10-22 03:14] VITALS: BP 131/69; PULSE 65; RESP 17; TEMP 36.1; O2SAT 95
[2022-10-22] MEDS: Acyclovir Sodium 730 MG in 0.9 % Sodium Chloride 250 ML 264.6 MG IV ×2 (04:22→16:39)
[2022-10-22 07:00] LABS: Hematocrit 31.1 % (42.0-52.0); Hemoglobin 10.5 g/dl (14.0-18.0); Mean Corpuscular HGB Conc 33.8 g/dl (31.0-36.0); Mean Corpuscular Hemoglobin 29.9 pg (27.0-33.0); Mean Corpuscular Volume 88.6 fL (80.0-98.0); Mean Platelet Volume 11.5 fL (9.4-12.4); Platelet Count 209 X10*3/uL (160-400); Red Blood Count 3.51 X10*6/uL (4.60-5.80); Red Cell Distribution Width 12.9 % (11.0-16.0); White Blood Count 9.8 X10*3/uL (4.8-10.8)
[2022-10-22 07:11] LABS: Anion Gap 12 (12-20); Blood Urea Nitrogen 28 mg/dL (9-16); Calcium 8.5 mg/dL (8.4-10.2); Carbon Dioxide 22 mmol/L (22-29); Chloride 108 mmol/L (96-108); Creatinine Clr Calc Pharmacy 58.9; Estimated Glomerular Filt Rate > 60; Glucose Fasting 122 mg/dL (60-99); Potassium 4.2 mmol/L (3.3-5.1); Sodium 138 mmol/L (135-145)
[2022-10-22 08:00] VITALS: BP 157/71; PULSE 60; RESP 18; TEMP 36.5; O2SAT 96
[2022-10-22] MEDS: Rivaroxaban 20 MG TABLET PO (09:49)
[2022-10-22] MEDS: Calcium + Vitamin D 250 MG TABLET 500 MG PO ×2 (09:49→15:07)
[2022-10-22] MEDS: Folic Acid 1 MG TABLET PO (09:49)
[2022-10-22] MEDS: Clopidogrel Bisulfate 75 MG TABLET PO (09:54)
[2022-10-22] MEDS: NeoMY/Polymyx/Dexameth Oph Sus 5 ML BOTTLE 2 DROP EYE-LEFT ×4 (09:55→22:41)
[2022-10-22] MEDS: 0.9 % Sodium Chloride Flush 3 ML SYRINGE IVFLUSH ×2 (09:55→14:22)
--- NOTE | 2022-10-22 10:18 | P.PNIM_ITS ---
Subjective Subjective Date of Service: 10/22/22 Interval History: back pain improving Physical Exam Vital Signs: Vital Signs: Last Vital Signs Temp 97.7 F 10/22/22 08:00 Pulse 60 10/22/22 08:00 Resp 18 10/22/22 08:00 BP 157/71 H 10/22/22 08:00 Pulse Ox 96 10/22/22 08:00 O2 Del Method 10/22/22 08:00 O2 Flow Rate 3 10/21/22 15:25 Oxygen Flow Rate 4 10/19/22 09:39 BMI result Body Mass Index 24.7 General: AO X 3, frail Resp: cta bilateral, no accessory muscles used CVS: S1,S2,RRR GI: soft, non tender, non distended left V1 distribution ertyhema with vesicles improving Objective Data Active Medications Acetaminophen (Acetaminophen 325 Mg Tablet) 650 mg PO Q6H PRN PRN Reason: Pain, Mild, fever Last Admin: 10/21/22 10:27 Dose: 650 mg Documented By: LATONIA Calcium Carbonate/Cholecalciferol (Calcium + Vitamin D 250 Mg Tablet) 500 mg PO BIDWM [facility] Last Admin: 10/22/22 09:49 Dose: 500 mg Documented By: MANISHA Clopidogrel Bisulfate (Clopidogrel Bisulfate 75 Mg Tablet) 75 mg PO DAILY [facility] Last Admin: 10/22/22 09:54 Dose: 75 mg Documented By: MANISHA Albuterol Sulfate 2.5 mg/ (Ipratropium [place] 0.5 mg) 0 mg INHALE RQ4H WHILE AWAKE PRN PRN Reason: Shortness of Breath/Wheezing Docusate Sodium (Docusate Sodium 100 Mg Capsule) 100 mg PO DAILY PRN PRN Reason: Constipation Doxazosin Mesylate (Doxazosin Mesylate 2 Mg Tablet) 4 mg PO BEDTIME [facility] Last Admin: 10/21/22 19:44 Dose: 4 mg Documented By: GENI Folic Acid (Folic Acid 1 Mg Tablet) 1 mg PO DAILY [facility] Last Admin: 10/22/22 09:49 Dose: 1 mg Documented By: MANISHA Ceftriaxone Sodium 1 gm/ (Sodium Chloride) 50 mls @ 100 mls/hr IV Q24H [facility] Stop: 10/23/22 14:29 Last Infusion: 10/21/22 15:53 Dose: 0 mls/hr Documented By: LATONIA Doxycycline Hyclate 100 mg/ (Sodium Chloride) 250 mls @ 166.67 mls/hr IV Q12H [facility] Stop: 10/24/22 03:29 Last Infusion: 10/22/22 03:59 Dose: 0 mls/hr Documented By: GENI Acyclovir Sodium 730 mg/ (Sodium Chloride) 264.6 mls @ 264.6 mls/hr IV Q12H [facility] Stop: 10/26/22 03:59 Last Infusion: 10/22/22 05:59 Dose: 0 mls/hr Documented By: GENI Methylprednisolone Sodium Succinate (Methylprednisolone Sod Succ 40 Mg/Ml Vial) 40 mg IVPUSH Q12H [facility] Last Admin: 10/22/22 01:29 Dose: 40 mg Documented By: GENI Morphine Sulfate (Morphine Sulfate 4 Mg/Ml Cartridge) 2 mg IVPUSH Q4H PRN; Protocol PRN Reason: Pain, Severe (Pain Scale 7-10) Last Admin: 10/19/22 17:56 Dose: 2 mg Documented By: ALECIA Neomycin/Polymyxin/Dexamethasone (Neomy/Polymyx/Dexameth Oph [place] 5 Ml Bottle) 2 drop EYE-LEFT RQ4H WHILE AWAKE [facility] Stop: 10/26/22 12:01 Last Admin: 10/22/22 09:55 Dose: 2 drop Documented By: MANISHA Ondansetron HCl (Ondansetron Hcl 4 Mg/2 Ml Vial) 4 mg IVPUSH Q8H PRN PRN Reason: Nausea and Vomiting Pharmacy Consult (Consult Rx Perform Med Rec) 1 each MISCELLANE ONCE PRN PRN Reason: Consult order Rivaroxaban (Rivaroxaban 20 Mg Tablet) 20 mg PO DAILY [facility] Last Admin: 10/22/22 09:49 Dose: 20 mg Documented By: MANISHA Sodium Chloride (0.9 % Sodium Chloride Flush 3 Ml Syringe) 3 ml IVFLUSH QSHIFT [facility] Last Admin: 10/22/22 09:55 Dose: 3 ml Documented By: MANISHA Tramadol HCl (Tramadol Hcl 50 Mg Tablet) 50 mg PO TID PRN PRN Reason: Pain, Moderate (Pain Scale 4-6 Last Admin: 10/22/22 01:27 Dose: 50 mg Documented By: GENI Labs 10/22/22 05:50 10/22/22 05:50 Labs: Laboratory Results - last 24 hr 10/22/22 10/22/22 05:50 05:50 MCV 88.6 MCH 29.9 MCHC 33.8 RDW 12.9 Plt Count 209 MPV 11.5 Absolute Nucleated RBC 0.000 Nucleated RBC % (auto) 0.0 Anion Gap 12 Estim Creat Clear Calc 58.9 Estimated GFR > 60 Fasting Glucose 122 H Calcium 8.5 Microbiology Microbiology Results: Microbiology 10/19/22 Unknown Urine Culture - Final Urine Catheterized - Straight Catheter Escherichia coli 10/19/22 10:18 Blood Culture - Preliminary Blood - Venous No growth after 48 hours. 10/19/22 10:18 Blood Culture - Preliminary Blood - Venous No growth after 48 hours. Assessment and Plan (1) Acute respiratory failure with hypoxia: Status: Acute Plan 82-year-old male with history of AAA, interstitial lung disease, CAD with H/O does NSTEMI 07/2021, ischemic cardiomyopathy, paroxysmal atrial fibrillation anticoagulated with Xarelto hypertension, hypercholesterolemia, GERD history of multiple vertebral fractures admitted for post-covid pneumonia with acute hypoxemic respiratory failure and herpes ophthalmicus. 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 (renally adjusted) x 7day (initiated10/19) - can transition to valacyclovir on dc neomycin/polymyxin/dexamethasone ophthalmic suspension q.4h x7 days (Initiated 10/19) ID following possible UTI continue ceftriaxone as above ecoli in urine acute L3 compression fracture CT showing compression deformity at L3 of unspecified chronicity.? However given patient history, suspect this is acute pain management using pain scale with Tylenol, tramadol, and morphine p.r.n. PT asppreciated - plan for str at snf outpatient follow-up advised diffuse osteopenia noted on imaging calcium and vitamin-D supplement outpatient follow-up advised paroxysmal atrial fibrillation continue Xarelto CAD/ischemic cardiomyopathy/HLD/AAA continue Plavix, Xarelto.? Not on statin DVT prophylaxis-on Xarelto Full code reason for continued hospitalization:safe dispo Time Spent With Patient Time: Total time managing care of this patient today ____ minutes. Quality Stroke Does the patient have a stroke diagnosis?: No VTE Prior VTE?: No VTE Risk Level:: Medical - moderate - high VTE Device Contraindication: Treatment Not Indicated VTE Drug Contraindication: N/A - Med Ordered
--- NOTE | 2022-10-22 10:32 | MHC.CM.PN ---
Per ROUNDS discussion, Patient is medically cleared for dc and PT is recommending STR. CM awaits SNF bed offer and will continue to follow.
--- NOTE | 2022-10-22 12:08 | MHC.CM.PN ---
CM has assisted Patient with the completion of his HCP.
--- NOTE | 2022-10-22 13:20 | MHC.CM.PN ---
CM met with Patient at bedside to discuss PT's recommendation for STR. Patient is reluctant to go to SNF/STR but agreeable to a snf bed search to see who may be able to offer a bed. CM will follow
[2022-10-22] MEDS: cefTRIAXone sodium 1 GM in 0.9 % Sodium Chloride 50 ML IV (14:21)
[2022-10-22 15:55] VITALS: BP 149/66; PULSE 86; RESP 17; TEMP 36.5; O2SAT 94
[2022-10-22 20:00] VITALS: BP 145/75; PULSE 81; RESP 17; TEMP 36.5; O2SAT 94
[2022-10-22] MEDS: Doxazosin Mesylate 2 MG TABLET 4 MG PO (22:40)
[2022-10-22] MEDS: Acetaminophen 325 MG TABLET 650 MG PO (22:41)
[2022-10-23] MEDS: 0.9 % Sodium Chloride Flush 3 ML SYRINGE IVFLUSH ×4 (00:09→23:11)
[2022-10-23] MEDS: methylPREDNISolone Sod Succ 40 MG/ML VIAL IVPUSH ×2 (00:47→13:42)
[2022-10-23] MEDS: Doxycycline Hyclate 100 MG in 0.9 % Sodium Chloride 250 ML 166.67 MG IV ×2 (00:47→13:57)
[2022-10-23] MEDS: Acyclovir Sodium 730 MG in 0.9 % Sodium Chloride 250 ML 264.6 MG IV ×2 (03:00→14:38)
[2022-10-23 04:00] VITALS: BP 130/65; PULSE 70; RESP 17; TEMP 36.4; O2SAT 95
[2022-10-23 08:00] VITALS: BP 140/64; PULSE 88; RESP 18; TEMP 36.4; O2SAT 97
[2022-10-23] MEDS: NeoMY/Polymyx/Dexameth Oph Sus 5 ML BOTTLE 2 DROP EYE-LEFT ×4 (08:58→23:10)
[2022-10-23] MEDS: Folic Acid 1 MG TABLET PO (09:28)
[2022-10-23] MEDS: Rivaroxaban 20 MG TABLET PO (09:28)
[2022-10-23] MEDS: Clopidogrel Bisulfate 75 MG TABLET PO (09:28)
[2022-10-23] MEDS: Calcium + Vitamin D 250 MG TABLET 500 MG PO ×2 (09:28→16:25)
[2022-10-23] MEDS: traMADoL HCL 50 MG TABLET PO (12:00)
--- NOTE | 2022-10-23 12:09 | P.PNIM_ITS ---
Subjective Subjective Date of Service: 10/23/22 Interval History: Seen and evaluated this morning Feels more comfortable, working with physical therapy Pain improving Review of Systems General: No fevers, malaise, unintentional weight loss HEENT: +blurred vision left eye. No diplopia. Cardiovascular: No chest pain, palpitations, or leg edema Respiratory: No shortness of breath, resolving wheezing. Improved cough GI: No abdominal pain, nausea, vomiting, diarrhea, constipation, melena, hematochezia : No dysuria, hematuria, increased urinary frequency, decreased urinary output MSK: No myalgia. +low back pain Neuro: No headaches, weakness, paresthesias Skin: No rashes or lesions Physical Exam Vital Signs: Vital Signs: Last Vital Signs Temp 97.5 F 10/23/22 08:00 Pulse 88 10/23/22 08:00 Resp 18 10/23/22 08:00 BP 140/64 H 10/23/22 08:00 Pulse Ox 97 10/23/22 08:00 O2 Del Method 10/23/22 04:00 O2 Flow Rate 3 10/21/22 15:25 Oxygen Flow Rate 4 10/19/22 09:39 BMI result Body Mass Index 24.7 Const: Other: Constitutional : Awake, interactive, frail Neck : Normal inspection, Supple Cardiovascular : RRR, no JVP, no lower extremity edema Respiratory : good bilateral air entry, no crackles, wheezes or rhonchi Gastrointestinal: soft, lax, Normal bowel sounds, Non tender Skin : Warm, Dry, left V1 distribution of erythema with vesicles, improving Neurological : Alert & oriented x3, No focal deficit Objective Data Active Medications Acetaminophen (Acetaminophen 325 Mg Tablet) 650 mg PO Q6H PRN PRN Reason: Pain, Mild, fever Last Admin: 10/22/22 22:41 Dose: 650 mg Documented By: JEANNINE Calcium Carbonate/Cholecalciferol (Calcium + Vitamin D 250 Mg Tablet) 500 mg PO BIDWM [facility] Last Admin: 10/23/22 09:28 Dose: 500 mg Documented By: GINO Clopidogrel Bisulfate (Clopidogrel Bisulfate 75 Mg Tablet) 75 mg PO DAILY [facility] Last Admin: 10/23/22 09:28 Dose: 75 mg Documented By: GINO Albuterol Sulfate 2.5 mg/ (Ipratropium [place] 0.5 mg) 0 mg INHALE RQ4H WHILE AWAKE PRN PRN Reason: Shortness of Breath/Wheezing Docusate Sodium (Docusate Sodium 100 Mg Capsule) 100 mg PO DAILY PRN PRN Reason: Constipation Doxazosin Mesylate (Doxazosin Mesylate 2 Mg Tablet) 4 mg PO BEDTIME [facility] Last Admin: 10/22/22 22:40 Dose: 4 mg Documented By: JEANNINE Folic Acid (Folic Acid 1 Mg Tablet) 1 mg PO DAILY [facility] Last Admin: 10/23/22 09:28 Dose: 1 mg Documented By: GINO Ceftriaxone Sodium 1 gm/ (Sodium Chloride) 50 mls @ 100 mls/hr IV Q24H [facility] Stop: 10/23/22 14:29 Last Infusion: 10/22/22 15:17 Dose: 0 mls/hr Documented By: MANISHA Doxycycline Hyclate 100 mg/ (Sodium Chloride) 250 mls @ 166.67 mls/hr IV Q12H [facility] Stop: 10/24/22 03:29 Last Infusion: 10/23/22 02:17 Dose: 0 mls/hr Documented By: JEANNINE Acyclovir Sodium 730 mg/ (Sodium Chloride) 264.6 mls @ 264.6 mls/hr IV Q12H [facility] Stop: 10/26/22 03:59 Last Infusion: 10/23/22 04:00 Dose: 0 mls/hr Documented By: JEANNINE Methylprednisolone Sodium Succinate (Methylprednisolone Sod Succ 40 Mg/Ml Vial) 40 mg IVPUSH Q12H [facility] Last Admin: 10/23/22 00:47 Dose: 40 mg Documented By: JEANNINE Morphine Sulfate (Morphine Sulfate 4 Mg/Ml Cartridge) 2 mg IVPUSH Q4H PRN; Protocol PRN Reason: Pain, Severe (Pain Scale 7-10) Last Admin: 10/19/22 17:56 Dose: 2 mg Documented By: ALECIA Neomycin/Polymyxin/Dexamethasone (Neomy/Polymyx/Dexameth Oph Ela 5 Ml Bottle) 2 drop EYE-LEFT RQ4H WHILE AWAKE [facility] Stop: 10/26/22 12:01 Last Admin: 10/23/22 12:01 Dose: 2 drop Documented By: GINO Ondansetron HCl (Ondansetron Hcl 4 Mg/2 Ml Vial) 4 mg IVPUSH Q8H PRN PRN Reason: Nausea and Vomiting Pharmacy Consult (Consult Rx Perform Med Rec) 1 each MISCELLANE ONCE PRN PRN Reason: Consult order Rivaroxaban (Rivaroxaban 20 Mg Tablet) 20 mg PO DAILY [facility] Last Admin: 10/23/22 09:28 Dose: 20 mg Documented By: GINO Sodium Chloride (0.9 % Sodium Chloride Flush 3 Ml Syringe) 3 ml IVFLUSH QSHIFT [facility] Last Admin: 10/23/22 08:56 Dose: 3 ml Documented By: GINO Tramadol HCl (Tramadol Hcl 50 Mg Tablet) 50 mg PO TID PRN PRN Reason: Pain, Moderate (Pain Scale 4-6 Last Admin: 10/23/22 12:00 Dose: 50 mg Documented By: GINO Labs 10/22/22 05:50 10/22/22 05:50 Microbiology Microbiology Results: Microbiology 10/19/22 Unknown Urine Culture - Final Urine Catheterized - Straight Catheter Escherichia coli Assessment and Plan (1) Acute respiratory failure with hypoxia: Status: Acute (2) Corneal abrasion, left: Status: Acute (3) Herpes zoster ophthalmicus: Status: Acute (4) Urinary tract infection: Status: Acute Plan 82-year-old male with history of AAA, interstitial lung disease, CAD with H/O does NSTEMI 07/2021, ischemic cardiomyopathy, paroxysmal atrial fibrillation anticoagulated with Xarelto hypertension, hypercholesterolemia, GERD history of multiple vertebral fractures admitted for post-covid pneumonia with acute hypoxemic respiratory failure and herpes ophthalmicus. 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 (renally adjusted) x 7day (initiated10/19) - can transition to PO valacyclovir on dc neomycin/polymyxin/dexamethasone ophthalmic suspension q.4h x7 days (Initiated 10/19) ID following UTI continue ceftriaxone as above ecoli in urine acute L3 compression fracture CT showing compression deformity at L3 of unspecified chronicity.? However given patient history, suspect this is acute pain management using pain scale with Tylenol, tramadol, and morphine p.r.n. PT asppreciated - plan for str at snf outpatient follow-up advised diffuse osteopenia noted on imaging calcium and vitamin-D supplement outpatient follow-up advised paroxysmal atrial fibrillation continue Xarelto CAD/ischemic cardiomyopathy/HLD/AAA continue Plavix, Xarelto.? Not on statin DVT prophylaxis-on Xarelto Full code reason for continued hospitalization:safe dispo Time Spent With Patient Time: Total time managing care of this patient today ____ minutes. Quality Stroke Does the patient have a stroke diagnosis?: No VTE Prior VTE?: No VTE Risk Level:: Medical - moderate - high VTE Device Contraindication: Treatment Not Indicated VTE Drug Contraindication: N/A - Med Ordered
[2022-10-23] MEDS: cefTRIAXone sodium 1 GM in 0.9 % Sodium Chloride 50 ML IV (13:43)
--- NOTE | 2022-10-23 13:53 | MHC.CM.PN ---
PAULETTE spoke with Son/Darion @ [phone] and per his request, PAULETTE has asked MD to call Darion with a clinical update. Darion is in agreement with the dc plan (STR), in fact, Darion is concerned should patient return home in the future/after STR. PAULETTE will follow.
--- NOTE | 2022-10-23 14:43 | MHC.CM.PN ---
[facility] is the only SNF of 36 SNF referrals who has a bed to offer (Patient's Shingles presents as a barrier r/t a private room being needed). CM met with Patient at bedside, who still prefers to go home but is agreeable to allow [facility] to seek insurance authorization to determine if they will approve STR. PAULETTE has asked [facility] to initiate the auth process with [facility] and CM will continue to follow.
[2022-10-23 15:41] VITALS: BP 135/65; PULSE 70; RESP 17; TEMP 36.6; O2SAT 96
[2022-10-23 16:55] LABS: Glucose, Whole Blood 126 mg/dL (60-115)
[2022-10-23 20:00] VITALS: BP 135/71; PULSE 70; RESP 17; TEMP 36.2
[2022-10-23] MEDS: Doxazosin Mesylate 2 MG TABLET 4 MG PO (23:10)
[2022-10-24] MEDS: methylPREDNISolone Sod Succ 40 MG/ML VIAL IVPUSH ×2 (01:19→12:23)
[2022-10-24] MEDS: Doxycycline Hyclate 100 MG in 0.9 % Sodium Chloride 250 ML 166.67 MG IV (01:20)
[2022-10-24] MEDS: traMADoL HCL 50 MG TABLET PO (01:47)
[2022-10-24 03:07] VITALS: BP 135/61; PULSE 75; RESP 17; TEMP 36.1; O2SAT 95
[2022-10-24] MEDS: Acyclovir Sodium 730 MG in 0.9 % Sodium Chloride 250 ML 264.6 MG IV ×2 (03:16→15:19)
[2022-10-24 07:15] LABS: Anion Gap 13 (12-20); Blood Urea Nitrogen 31 mg/dL (9-16); Calcium 8.6 mg/dL (8.4-10.2); Carbon Dioxide 23 mmol/L (22-29); Chloride 111 mmol/L (96-108); Creatinine Clr Calc Pharmacy 54.3; Estimated Glomerular Filt Rate > 60; Glucose Random 127 mg/dL (60-115); Sodium 143 mmol/L (135-145)
[2022-10-24 07:16] VITALS: BP 135/82; PULSE 70; RESP 18; TEMP 36.1; O2SAT 97
[2022-10-24] MEDS: Rivaroxaban 20 MG TABLET PO (09:27)
[2022-10-24] MEDS: Clopidogrel Bisulfate 75 MG TABLET PO (09:27)
[2022-10-24] MEDS: Calcium + Vitamin D 250 MG TABLET 500 MG PO ×2 (09:27→15:20)
[2022-10-24] MEDS: Folic Acid 1 MG TABLET PO (09:27)
[2022-10-24] MEDS: NeoMY/Polymyx/Dexameth Oph Sus 5 ML BOTTLE 2 DROP EYE-LEFT ×4 (09:28→19:16)
[2022-10-24] MEDS: 0.9 % Sodium Chloride Flush 3 ML SYRINGE IVFLUSH ×2 (09:28→15:27)
[2022-10-24 11:11] LABS: Glucose, Whole Blood 134 mg/dL (60-115)
--- NOTE | 2022-10-24 11:37 | P.PNIM_ITS ---
Subjective Subjective Date of Service: 10/24/22 Interval History: Seen and evaluated this morning Feels more comfortable, complaining of back pain when moving doesnt see much in her left eye, blurred no other overnight events Review of Systems General: No fevers, malaise, unintentional weight loss HEENT: +blurred vision left eye. No diplopia. Cardiovascular: No chest pain, palpitations, or leg edema Respiratory: No shortness of breath, resolving wheezing. Improved cough GI: No abdominal pain, nausea, vomiting, diarrhea, constipation, melena, hematochezia : No dysuria, hematuria, increased urinary frequency, decreased urinary output MSK: No myalgia. +low back pain Neuro: No headaches, weakness, paresthesias Skin: No rashes or lesions Physical Exam Vital Signs: Vital Signs: Last Vital Signs Temp 97 F 10/24/22 07:16 Pulse 70 10/24/22 07:16 Resp 18 10/24/22 07:16 BP 135/82 10/24/22 07:16 Pulse Ox 97 10/24/22 07:16 O2 Del Method 10/24/22 07:16 O2 Flow Rate 3 10/21/22 15:25 Oxygen Flow Rate 4 10/19/22 09:39 BMI result Body Mass Index 24.7 Const: Other: Constitutional : Awake, interactive, frail Neck : Normal inspection, Supple Cardiovascular : RRR, no JVP, no lower extremity edema Respiratory : good bilateral air entry, no crackles, wheezes or rhonchi Gastrointestinal: soft, lax, Normal bowel sounds, Non tender Skin : Warm, Dry, left V1 distribution of erythema with drying vesicles, improving Neurological : Alert & oriented x3, No focal deficit Objective Data Active Medications Acetaminophen (Acetaminophen 325 Mg Tablet) 650 mg PO Q6H PRN PRN Reason: Pain, Mild, fever Last Admin: 10/22/22 22:41 Dose: 650 mg Documented By: JEANNINE Calcium Carbonate/Cholecalciferol (Calcium + Vitamin D 250 Mg Tablet) 500 mg PO BIDWM [facility] Last Admin: 10/24/22 09:27 Dose: 500 mg Documented By: MANISHA Clopidogrel Bisulfate (Clopidogrel Bisulfate 75 Mg Tablet) 75 mg PO DAILY [facility] Last Admin: 10/24/22 09:27 Dose: 75 mg Documented By: MANISHA Albuterol Sulfate 2.5 mg/ (Ipratropium [place] 0.5 mg) 0 mg INHALE RQ4H WHILE AWAKE PRN PRN Reason: Shortness of Breath/Wheezing Docusate Sodium (Docusate Sodium 100 Mg Capsule) 100 mg PO DAILY PRN PRN Reason: Constipation Doxazosin Mesylate (Doxazosin Mesylate 2 Mg Tablet) 4 mg PO BEDTIME [facility] Last Admin: 10/23/22 23:10 Dose: 4 mg Documented By: ANU Folic Acid (Folic Acid 1 Mg Tablet) 1 mg PO DAILY [facility] Last Admin: 10/24/22 09:27 Dose: 1 mg Documented By: MANISHA Acyclovir Sodium 730 mg/ (Sodium Chloride) 264.6 mls @ 264.6 mls/hr IV Q12H [facility] Stop: 10/26/22 03:59 Last Infusion: 10/24/22 05:30 Dose: 0 mls/hr Documented By: ANU Methylprednisolone Sodium Succinate (Methylprednisolone Sod Succ 40 Mg/Ml Vial) 40 mg IVPUSH Q12H [facility] Last Admin: 10/24/22 01:19 Dose: 40 mg Documented By: ANU Morphine Sulfate (Morphine Sulfate 4 Mg/Ml Cartridge) 2 mg IVPUSH Q4H PRN; Protocol PRN Reason: Pain, Severe (Pain Scale 7-10) Last Admin: 10/19/22 17:56 Dose: 2 mg Documented By: ALECIA Neomycin/Polymyxin/Dexamethasone (Neomy/Polymyx/Dexameth Oph Ela 5 Ml Bottle) 2 drop EYE-LEFT RQ4H WHILE AWAKE [facility] Stop: 10/26/22 12:01 Last Admin: 10/24/22 09:28 Dose: 2 drop Documented By: MANISHA Ondansetron HCl (Ondansetron Hcl 4 Mg/2 Ml Vial) 4 mg IVPUSH Q8H PRN PRN Reason: Nausea and Vomiting Pharmacy Consult (Consult Rx Perform Med Rec) 1 each MISCELLANE ONCE PRN PRN Reason: Consult order Rivaroxaban (Rivaroxaban 20 Mg Tablet) 20 mg PO DAILY [facility] Last Admin: 10/24/22 09:27 Dose: 20 mg Documented By: MANISHA Sodium Chloride (0.9 % Sodium Chloride Flush 3 Ml Syringe) 3 ml IVFLUSH QSHIFT [facility] Last Admin: 10/24/22 09:28 Dose: 3 ml Documented By: MANISHA Tramadol HCl (Tramadol Hcl 50 Mg Tablet) 50 mg PO TID PRN PRN Reason: Pain, Moderate (Pain Scale 4-6 Last Admin: 10/24/22 01:47 Dose: 50 mg Documented By: ANU Labs 10/22/22 05:50 10/24/22 05:42 Labs: Laboratory Results - last 24 hr 10/23/22 10/24/22 10/24/22 16:46 05:42 11:08 Anion Gap 13 Estim Creat Clear Calc 54.3 Estimated GFR > 60 POC Glucose 126 H 134 H Random Glucose 127 H Calcium 8.6 Assessment and Plan (1) Compression fracture of L3 vertebra: Status: Acute (2) Herpes zoster ophthalmicus: Status: Acute (3) Urinary tract infection: Status: Acute Plan 82-year-old male with history of AAA, interstitial lung disease, CAD with H/O does NSTEMI 07/2021, ischemic cardiomyopathy, paroxysmal atrial fibrillation anticoagulated with Xarelto hypertension, hypercholesterolemia, GERD history of multiple vertebral fractures admitted for post-covid pneumonia with acute hypoxemic respiratory failure and herpes ophthalmicus. 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 (renally adjusted) x 7day (initiated10/19) - can transition to PO valacyclovir on dc neomycin/polymyxin/dexamethasone ophthalmic suspension q.4h x7 days (Initiated 10/19) ID following UTI continue ceftriaxone as above ecoli in urine acute L3 compression fracture CT showing compression deformity at L3 of unspecified chronicity.? However given patient history, suspect this is acute pain management using pain scale with Tylenol, tramadol, and morphine p.r.n. PT asppreciated - plan for str at snf outpatient follow-up advised diffuse osteopenia noted on imaging calcium and vitamin-D supplement outpatient follow-up advised paroxysmal atrial fibrillation continue Xarelto CAD/ischemic cardiomyopathy/HLD/AAA continue Plavix, Xarelto.? Not on statin DVT prophylaxis-on Xarelto Full code reason for continued hospitalization:safe dispo Time Spent With Patient Time: Total time managing care of this patient today ____ minutes. Quality Stroke Does the patient have a stroke diagnosis?: No VTE Prior VTE?: No VTE Risk Level:: Medical - moderate - high VTE Device Contraindication: Treatment Not Indicated VTE Drug Contraindication: N/A - Med Ordered
--- NOTE | 2022-10-24 14:02 | MHC.CM.PN ---
NO BED OFFERS OF THIS NOTE. ACUTE REFERRALS PLACED.T/W SPOKE WITH SON, VANESSA @ [phone] WHO STATS THAT PATIENT OWES ONE OF THE FACILITIES [employer] ATTEMPTING TO SECURE ACUTE REHAB BED OFFER. ALTERNATE PLAN WILL BE HOME THURSDAY WITH [facility] (IF AN AGENCY CAN BE SECURED)
[2022-10-24 15:41] VITALS: BP 155/67; PULSE 66; RESP 18; TEMP 35.9; O2SAT 95
[2022-10-24] MEDS: Doxazosin Mesylate 2 MG TABLET 4 MG PO (19:16)
[2022-10-24 20:00] VITALS: BP 129/57; PULSE 63; RESP 18; TEMP 36.2; O2SAT 95
[2022-10-25] MEDS: Acyclovir Sodium 730 MG in 0.9 % Sodium Chloride 250 ML 246.6 MG IV (02:39)
[2022-10-25] MEDS: methylPREDNISolone Sod Succ 40 MG/ML VIAL IVPUSH ×2 (02:39→15:27)
[2022-10-25 04:00] VITALS: BP 132/68; PULSE 57; RESP 18; TEMP 37.2; O2SAT 96
[2022-10-25 07:05] VITALS: BP 148/68; PULSE 56; RESP 19; TEMP 36.6; O2SAT 98
[2022-10-25 07:25] LABS: Glucose, Whole Blood 122 mg/dL (60-115)
[2022-10-25] MEDS: Clopidogrel Bisulfate 75 MG TABLET PO (09:11)
[2022-10-25] MEDS: Folic Acid 1 MG TABLET PO (09:11)
[2022-10-25] MEDS: traMADoL HCL 50 MG TABLET PO ×2 (09:11→17:42)
[2022-10-25] MEDS: 0.9 % Sodium Chloride Flush 3 ML SYRINGE IVFLUSH (09:12)
[2022-10-25] MEDS: NeoMY/Polymyx/Dexameth Oph Sus 5 ML BOTTLE 2 DROP EYE-LEFT ×3 (09:12→15:27)
[2022-10-25] MEDS: Rivaroxaban 20 MG TABLET PO (09:12)
[2022-10-25] MEDS: Calcium + Vitamin D 250 MG TABLET 500 MG PO ×2 (09:18→17:42)
--- NOTE | 2022-10-25 11:09 | PM.DS ---
DS: Providers Provider Date of Service: 10/25/22 Date of admission: 10/19/22 13:43 Primary care physician: Elver Germain MD Consults: 10/19/22 14:45 Consult to Infectious Diseases Routine Consulting Provider: Aniyah Workman Reason for consultation: herpes ophthalmicus DS: Diagnosis Discharge Diagnosis (1) Compression fracture of L3 vertebra: Status: Acute (2) Herpes zoster ophthalmicus: Status: Acute (3) Urinary tract infection: Status: Acute (4) Acute respiratory failure with hypoxia: Status: Acute (5) Preseptal cellulitis of left eye: Status: Acute (6) Corneal abrasion, left: Status: Acute (7) Pneumonia: Status: Acute DS: Summary Hospital Course Hospital Course: Admission note HPI 82-year-old male with history of AAA, interstitial lung disease, CAD with H/O does NSTEMI 07/2021, ischemic cardiomyopathy, paroxysmal atrial fibrillation anticoagulated with Xarelto hypertension, hypercholesterolemia, GERD history of multiple vertebral fractures following mechanical fall in 07/2019, and anxiety/depression presented to the ED earlier today for evaluation of severe low back pain.? The patient denied any falls.? Recalls being in a seated position bending forward with sudden-onset severe low back pain.? Denies any other trauma.? No known history of osteoporosis.? Since then has been attempting to treat his pain with tramadol which she is prescribed which had been helping but pain continued to worsen prompting to call EMS for transfer to the hospital.? The patient is unable to provide much history secondary to poorly-controlled pain and his son does also assist with history but is somewhat a minimal historian. However on arrival, pt noted to desaturate to 86% in the ED and tachypneic in the 30s so patient was placed on 2l supplemental O2 (non oxygen dependent at home). He did inform ED provider he tested positive for COVID-19 8 days ago with symptoms including nasal congestion, nonproductive cough. On exam patient also noted to have faint erythema and soft tissue swelling left forehead/scalp with several vesicular lesions noted on the scalp and left upper lid with copious purulent drainage from the eye noted. The patient reports hitting his head lightly against a glass the was on the tray of his walker, but no significant trauma. The area is tender to palpation. ED provider did stain the eye which was noted to be negative for dendritic lesions, but did show a large linear corneal abrasion. Afebrile in the ED but with leukocytosis 12.5.? Renal function baseline, electrolyte levels normal result for CO2 of 24.? Troponin negative, BNP 169.? UA with 3+ leukocytes, negative nitrites, 2+ blood, 2+ protein, positive urinary sediment, 4+ bacteria.? Denies any urinary symptoms. Head CTnegative for any acute intracranial abnormality.? Facial CT showing soft tissue swelling but no fracture. CT lumbar spine shows diffuse osteopenia with possible sacral insufficiency fracture and mild superior endplate compression fracture of L3 not previously seen on imaging but with undetermined chronicity.? Infrarenal abdominal aortic aneurysm is without any significant change, follow-up advised in 6 months.? Checks x-ray showing interstitial prominence and peripheral hazy opacities in bilateral lungs could reflect pulmonary edema versus infectious/inflammatory process with small left pleural effusion. Denies any fevers, chills, n/v/d, bladder/bowel dysfunction, abd pain, saddle anaesthesia, weakness, or paresthesias, shortness of breath, or chest pain. Still has intermittent cough. Reports intermittent 10/10 low back pain. Requesting pain meds. Hospital course The patient was admitted for evaluation of acute hypoxemic respiratory failure- related to post COVID-19 pneumonia with decopmensation of ILD. Treated with IV antibiotics with good response over the course of hospital stay along with steroids with good response as he was weaned off the oxygen. Finished 5 days of doxycycline and ceftriaxone. Blood cultures remain negative. Weaned off oxygen and was able to ambulate with physical therapy with no reported dyspnea or shortness of breath. 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 fluorescein stain of the left eye did not reveal any obvious dendritic lesions but did show a large linear corneal abrasion. Treated with acyclovir 10 milligrams/kilogram b.i.d. (renally adjusted) x 7day (initiated10/19) and to be transitioned to PO valacyclovir on discharge. To continue with neomycin/polymyxin/dexamethasone ophthalmic suspension. Seen by infectious disease specialist. To be followed as outpatient by PCP and Ophthalmology. Treated for UTI with antibiotic as urine culture grew sensitive E coli. Reported back pain with evidence of acute/subacute L3 compression fracture as CT showing compression deformity at L3 of unspecified chronicity.?pain management using pain scale with Tylenol, tramadol, and morphine p.r.n. with improvement as the patient was able to participate wore with physical therapy. He was also noted to have diffuse osteopenia on imaging. Started on calcium and vitamin-D supplement. outpatient follow-up advised with PCP for further evaluation. Time Spent with Patient Time attestation: Total time managing care of this patient today ____ minutes. Discharge coordination time: Greater than 30 minutes Quality: Safe Use of Opioids Does Pt have an Active Cancer Diagnosis on the Problem List?: No Quality: Stroke Does the patient have a stroke diagnosis?: No Physical Exam Vital Signs: Vital Signs: Last Vital Signs Temp 98 F 10/25/22 07:05 Pulse 56 10/25/22 07:05 Resp 19 10/25/22 07:05 BP 148/68 H 10/25/22 07:05 Pulse Ox 98 10/25/22 07:05 O2 Del Method 10/25/22 07:05 O2 Flow Rate 3 10/21/22 15:25 Oxygen Flow Rate 4 10/19/22 09:39 BMI result Body Mass Index 24.7 Const: Other: Constitutional : Awake, interactive, frail Neck : Normal inspection, Supple Cardiovascular : RRR, no JVP, no lower extremity edema Respiratory : good bilateral air entry, no crackles, wheezes or rhonchi Gastrointestinal: soft, lax, Normal bowel sounds, Non tender Skin : Warm, Dry, left V1 distribution of erythema with drying vesicles, improving Neurological : Alert & oriented x3, No focal deficit DS: Data Data Completed and Pending Labs on day of discharge: Laboratory Results - last 24 hr 10/24/22 10/25/22 11:08 07:06 POC Glucose 134 H 122 H Imaging Chest x-ray: Radiologist's impression: ITS Impressions Chest X-Ray 10/19/22 10:31 IMPRESSION: Interstitial prominence and peripheral hazy opacities in bilateral lungs, could reflect pulmonary edema versus infectious/inflammatory process. Small left pleural effusion. Lumbar Spine CT 10/19/22 11:01 IMPRESSION: Diffuse osteopenia. Possible sacral insufficiency fracture cannot excluded. Mild superior endplate compression fracture of L3 that was not identified on study of December 12, 2016 but which chronicity I cannot tell. Infrarenal abdominal aortic aneurysm without significant change and for which follow-up CT or ultrasound could be performed in [address] 10/19/22 11:06 IMPRESSION: Soft tissue swelling. No definite acute facial bone fracture appreciated. Head CT 10/19/22 11:06 IMPRESSION: No acute intracranial pathology. Ischemic changes as described. Discharge Plan Discharge Anticipated Discharge Date/Time: 10/22/22 10:20 Patient Disposition: Home Health Service Discharge Diagnosis: zoster opthalmicus Referrals: Jessica HUNT [Outside] - 1 Week Po,Elver Jameson MD [Primary Care Provider] - 1 Week Discharge Medications: New neomycin-polymyxin B-dexameth 3.5mg/mL-10,000 unit/mL-0.1 % Drops,Suspension 2 drp ophthalmic-Left RQ4H WHILE AWAKE 5 Days Qty: 0 0RF prednisone 20 mg tablet 40 mg PO DAILY Qty: 10 0RF valacyclovir 1 gram tablet 1,000 mg PO Q8H Qty: 15 0RF cefuroxime axetil 500 mg tablet 500 mg PO BID Qty: 10 0RF neomycin-polymyxin B-dexameth 3.5mg/mL-10,000 unit/mL-0.1 % drops,suspension 1 drp ophthalmic (eye) Q8H Qty: 5 0RF calcium carbonate-vitamin D3 250 mg-3.125 mcg (125 unit) Tablet 500 mg PO BIDWM Qty: 30 0RF Continued clopidogrel 75 mg tablet 75 mg PO DAILY 90 Days Qty: 90 3RF Xarelto 20 mg tablet 20 mg PO DAILY 90 Days Qty: 90 2RF Rx Instructions: must administer with evening meal folic acid 1 mg tablet 1 mg PO DAILY Qty: 90 1RF tramadol 50 mg tablet 50 mg PO TID PRN (Reason: Pain (Scale Score 4-6)) 30 Days Qty: 21 2RF terazosin 5 mg capsule 1 cap PO BEDTIME cholecalciferol (vitamin D3) [Vitamin D3] 25 mcg (1,000 unit) Tablet 25 mcg PO DAILY Discharge Orders: Discharge Order (Routine); Ordered 10/25/22 Ordered By: Simba Gutierrez Diet: Advance to usual diet Activity on Discharge: As tolerated Stand Alone Forms: Patient Portal Discharge page Care Plan Goals: recovery Health Concerns: zoster opthalmicus, pna, copd, l3 fracture Plan of Treatment: pain control Physical therapy antiviral and eye steroids for 5 more days oral steroids and ceftin as prescribed Assessment: To follow-up with 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
[2022-10-25 11:19] LABS: Glucose, Whole Blood 160 mg/dL (60-115)
--- NOTE | 2022-10-25 12:04 | MHC.CM.PN ---
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 Original Note: CM MET WITH PT TO DISCUSS DC PLANNING PT REPORTS HE WANTS TO GO HOME TODAY WHEN ASKED HOW HE WILL MANAGE, HE REPORTS HE WILL BE FINE HE HAS A URINAL HE KEEPS NEAR HIM AT HOME, PRIVATE PAY, AND FAMILY ASSISTANCE HE REPORTS HE WOULD LIKE AN AMBULANCE HOME SO HE DOES NOT HAVE TO GET IN AN OUT OF SONS CAR HE IS AGREEABLE TO HAVING CM CALL HIS SON TO [employer] [facility] AND INFORM HIM OF DC CM ATTEMPTED TO CONTACT PTS SON, VANESSA [phone] A VM MESSAGE WAS LEFT EXPLAINING DC AND INVITING A RETURN CALL PT WILL DC HOME TODAY WITH [facility] FOR SN AND PT AND RESUMPTION OF GENERAL MANAGER SERVICES BLS TRANSPORT VIA [facility]
--- NOTE | 2022-10-25 12:04 | W.MHC.F2F ---
Service Date Service Date: 10/25/22 Encounter Date of encounter: 10/25/22 Reasons for Services Signs and symptoms assessed: Herpes zoster ophthalmicus Compression fracture L3, physical deconditioning Reason for intermediate: medication management and teach disease management Reason for physical therapy: home safety and mobility and therapeutic exercises Homebound: Leaving the home is medically contraindicated at this time without the asist of a device and/or another person due th the listed conditions above and below. Reason homebound: unsteady gait / fall risk Certification: Based on the above findings, I certify that this patient is confined to the home and needs intermittent intermediate care, physical therapy and/or speech therapy, or continues to need occupational therapy. The patient is under my care, and I have initiated the establishment of the plan of care. The patient will be followed by a physician who will periodically review the plan of care. Time Spent With Patient Time: Total time managing care of this patient today ____ minutes.
[2022-10-25] MEDS: Acyclovir Sodium 730 MG in 0.9 % Sodium Chloride 250 ML 264.6 MG IV (15:27)
[2022-10-25 15:55] VITALS: PULSE 62; RESP 18; TEMP 36.7; O2SAT 95
== END 2022-10-25 18:17 | disposition home health service (06) | DRG 193 ==
LOC: HO.ED 10:33 → HO.EDOVER 14:05 → HO.S3 21:50
PROVIDERS: Internal Medicine; Nurse Practitioner Family; Admitting Provider Physician Assistant; Emergency Provider Emergency Medicine; PCP Internal Medicine; Visit Provider Student in an Organized Health Care Education/Training Program
DX: J18.9 Pneumonia, unspecified organism (principal); J96.01 Acute respiratory failure with hypoxia; B02.30 Zoster ocular disease, unspecified; N39.0 Urinary tract infection, site not specified; M48.56XA Collapsed vertebra, not elsewhere classified, lumbar region, initial encounter for fracture; L03.213 Periorbital cellulitis; I25.10 Atherosclerotic heart disease of native coronary artery without angina pectoris; S05.02XA Injury of conjunctiva and corneal abrasion without foreign body, left eye, initial encounter; X58.XXXA Exposure to other specified factors, initial encounter; E78.5 Hyperlipidemia, unspecified; H10.9 Unspecified conjunctivitis; I71.40 Abdominal aortic aneurysm, without rupture, unspecified; I25.5 Ischemic cardiomyopathy; I48.0 Paroxysmal atrial fibrillation; U09.9 Post COVID-19 condition, unspecified; M85.89 Other specified disorders of bone density and structure, multiple sites; Z86.73 Personal history of transient ischemic attack (TIA), and cerebral infarction without residual deficits; I25.2 Old myocardial infarction; Z20.822 Contact with and (suspected) exposure to COVID-19; Z79.01 Long term (current) use of anticoagulants; Z79.02 Long term (current) use of antithrombotics/antiplatelets; Z79.899 Other long term (current) drug therapy
CPT/HCPCS: 36415; 70450; 70486; 71046; 72131; 80048; 80053; 81001; 82947; 83605; 83690; 83735; 83880; 84484; 85025; 85027; 85610; 87040; 87086; 87088; 87186; 87502; 87635; 93005; 97162; 97530; 99285; J0133; J0696; J2270; J2920

== ENCOUNTER 2022-10-30 08:17 | Emergency (ER) | payer OTHER, SELFPAY ==
--- NOTE | ~2022-10-30 | XR_ITS ---
EXAMINATION: XR CHEST CLINICAL INFORMATION: Severe back pain. COMPARISON: Chest radiographs dated 10/19/2022. Chest CT scan dated 09/21/2021 TECHNIQUE: Frontal view of the chest was obtained. FINDINGS: Rotated and kyphotic positioning is suboptimal. Mild coarsened interstitial markings are seen bilaterally without focal infiltrate. No overt pleural effusions. The heart and mediastinal structures are unremarkable. The visualized osseous structures are unremarkable. XR/XR chest 1V IMPRESSION: Limited study showing mild chronic interstitial markings without acute cardiac pulmonary process.
--- NOTE | 2022-10-30 09:23 | ED.GENADULT ---
HPI - General Adult General Chief complaint: Back Pain/Injury Stated complaint: LOW BACK PAIN X4 DAYS,UNABLE TO CARE FOR SELF Time Seen by Provider: 10/30/22 09:03 Source: patient and EMS Mode of arrival: EMS History of Present Illness HPI narrative: 82-year-old male with history of AAA, interstitial lung disease, CAD with H/O does NSTEMI 07/2021, ischemic cardiomyopathy, paroxysmal A.Fib on Xarelto, HTN, HLD, GERD, anxiety/depression, recently discharged from our facility on 10/25 s/p compression fracture of L3, herpes zoster ophthalmicus, acute hypoxic respiratory failure/pneumonia, presenting to the ED today complaining of continued low back pain and difficulty caring for self at home. Patient was discharged home with home services. Denies new or recent fall/injury or trauma. Reports mild continued productive cough and dysuria. Denies SOB, CP, abdominal pain, nausea/vomiting Onset (ago): day(s) Related Data Home Medications Medication Instructions Recorded Confirmed cholecalciferol (vitamin D3) 25 25 mcg PO DAILY 10/19/22 10/30/22 mcg (1,000 unit) tablet (Vitamin D3) terazosin 5 mg capsule 1 cap PO BEDTIME 10/19/22 10/30/22 Previous Rx's Medication Instructions Recorded clopidogrel 75 mg tablet 75 mg PO DAILY 90 days #90 tabs 08/15/21 rivaroxaban 20 mg tablet (Xarelto) 20 mg PO DAILY 90 days #90 tabs 10/11/21 folic acid 1 mg tablet 1 mg PO DAILY #90 tabs 12/24/21 tramadol 50 mg tablet 50 mg PO TID PRN Pain (Scale Score 08/29/22 4-6) 30 days #21 tabs cefuroxime axetil 500 mg tablet 500 mg PO BID #10 tabs 10/22/22 prednisone 20 mg tablet 40 mg PO DAILY #10 tabs 10/22/22 valacyclovir 1 gram tablet 1,000 mg PO Q8H #15 tabs 10/22/22 calcium carbonate 250 mg-vitamin 500 mg PO BIDWM #30 tabs 10/25/22 D3 3.125 mcg (125 unit) tablet almjvffx-iwuqqufsk-ixglaphi 3.5 1 drp ophthalmic (eye) Q8H #5 mL 10/25/22 mg/mL-10,000 unit/mL-0.1% eye drops Allergies Allergy/AdvReac Type Severity Reaction Status Date / Time No Known Allergies Allergy Verified 09/12/22 09:43 [No Known Allergies*] Review of Systems Review of Systems: Constitutional: No Fever, No Chills, No Fatigue, No Malaise ENT/Mouth: No Ear Pain, No sore throat, No Rhinorrhea, No Swallowing Difficulty Cardiovascular: No Chest Pain, No SOB Respiratory: +Cough, + Sputum, No Dyspnea Gastrointestinal: No Nausea, No Vomiting, No Diarrhea, No Constipation, No Abdominal pain Genitourinary: +Dysuria, No Urinary Frequency, No Hematuria Musculoskeletal: +joint pain, No Myalgias, No Joint Swelling Skin: No Skin Lesions, No rash Neuro: No Weakness, No Headache Yes all other systems are reviewed and are negative Constitutional: Constitutional: Reports as per [facility] Past Medical History Attestation statement: The following information was validated with the patient. Medical History Abdominal aortic aneurysm Acetabular fracture Anxiety and depression Coronary artery disease CVA (cerebral vascular accident) GERD (gastroesophageal reflux disease) Hypercholesterolemia Hypertension Interstitial lung disease Left rib fracture NSTEMI (non-ST elevated myocardial infarction) Paroxysmal A-fib Rotator cuff dysfunction Tubular adenoma of colon Ulnar neuropathy Vertebral fracture Surgical History History of appendectomy History of bilateral cataract extraction History of bursectomy History of hemorrhoidectomy S/P cardiac catheterization Family History Family History Father Medical history unknown Mother Medical history unknown Social History Social History Household Members: Unknown / Unable to assess Housing: House Do you presently have visiting nurse or other home services: No Alcohol intake: never Patient Tobacco Use Status: Never used Tobacco e-Cigarette/Vaping Use: Never Used Second Hand Smoke Exposure: No Advance Directives: No service: No Current occupational status: retired Cognitive needs: No Hearing needs: Yes Vision needs: Yes Physical Exam ED Vital Signs: Vital Signs - 24 hr 10/30/22 10:31 10/30/22 09:27 10/30/22 12:54 Temperature 97.8 F 98.1 F 98.3 F Pulse Rate 48 L 61 51 Respiratory Rate 17 Blood Pressure 148/48 H 146/34 H 123/47 L Pulse Oximetry 96 97 95 Oxygen Delivery Method Room Air Room Air Room Air 10/30/22 14:09 Temperature 98.3 F Pulse Rate 53 Respiratory Rate 14 Blood Pressure 146/58 H Pulse Oximetry 97 Oxygen Delivery Method Room Air BMI result Body Mass Index 22.1 Const General: cooperative, healthy appearing and no acute distress Limitations: no limitations HENMT Head: Yes normal to inspection and Yes atraumatic Ears: hearing grossly normal bilaterally General nose exam: Normal external nose present Face and sinus: Yes normal facial exam Eyes General: appearance normal, both eyes and all related structures EOM: EOMs intact bilaterally Neck Neck: Yes normal visual inspection and Yes no meningeal signs Resp Effort & Inspection: normal respiratory effort and no respiratory distress Auscultation: diminished lung sounds bilateral in the lower lung martin Cardio Rate: regular rate Heart sounds: S1 normal heart sound present and S2 normal heart sound present GI Inspection: Yes normal to inspection Palpation (GI): Soft to palpation, nontender, no guarding and not rigid Back/Spine/Pelvis Other: No midline thoracic/lumbar spinous tenderness/step-off or deformity. +diffuse MSK back ttp. No ecchymosis/erythema. Pelvis stable Skin Rashes: no rashes Wounds: no wounds Neuro General: tone normal, moves all extremities and no meningeal signs Extrem General: Yes normal to inspection and Yes no pedal edema Course Course Course Narrative: 1116--leukocytosis to 14.6 likely from current prednisone use. H&H stable. BUN improved from priors. -COVID-19 negative -1455--UA not infected XR chest 1V IMPRESSION: Limited study showing mild chronic interstitial markings without acute cardiac pulmonary process. > patient is medically cleared for PT/Case Management. Physician observation initiated at 14:56 -physical therapy evaluated patient and recommended short-term rehab -1800--ED care transferred to [facility] pending case management placement Medications Administered Discontinued Medications Generic Name Dose Route Start Last Admin Trade Name Freq PRN Reason Stop Dose Admin Lidocaine 1 patch 10/30/22 12:52 10/30/22 13:04 Lidocaine 4 % Patch Adh..Patch TRANSDERMA 10/30/22 12:53 1 patch ONCE ONE Administration Protocol Morphine Sulfate 15 mg 10/30/22 09:44 10/30/22 09:54 Morphine Sulfate Immed Release 15 Mg Tablet PO 10/30/22 09:45 15 mg ONCE ONE Administration Tramadol HCl 50 mg 10/30/22 12:52 10/30/22 13:04 Tramadol Hcl 50 Mg Tablet PO 10/30/22 12:53 50 mg ONCE ONE Administration Medical Decision Making Medical Decision Making [facility] Narrative: 82-year-old male with history of AAA, interstitial lung disease, CAD with H/O does NSTEMI 07/2021, ischemic cardiomyopathy, paroxysmal A.Fib on Xarelto, HTN, HLD, GERD, anxiety/depression, recently discharged from our facility on 10/25 s/p compression fracture of L3, herpes zoster ophthalmicus, acute hypoxic respiratory failure/pneumonia, presenting to the ED today complaining of continued low back pain and difficulty caring for self at home. On exam vital signs stable, NAD, diminished lung sounds bibasilarly, abdomen soft/nontender, diffuse back tenderness noted without midline spinous tenderness or evidence of trauma, no ecchymosis. NV intact distally. Concern for continued pain due to known compression fractures complicated by failure to thrive. Low suspicion for new fracture/injury. Rule out metabolic/infectious etiologies. Low suspicion for cauda equina/cord compression at this time. Plan: EKG, labs, UA, CXR, PT/case management Please refer to course for remaining clinical decision making, interpretation of labs/imaging results, and discussions with consultants and/or family members. Differential Diagnosis Differential Diagnoses: The differential diagnosis associated with the presentation includes as above Lab Data [facility] Lab Attestation statement: I reviewed the patient's lab results. 10/30/22 09:36 10/30/22 09:36 Labs: Lab Results 10/30/22 10/30/22 10/30/22 Range/Units 09:36 09:36 09:36 WBC 14.6 H (4.8-10.8) X10*3/uL RBC 3.70 L (4.60-5.80) X10*6/uL Hgb 11.0 L (14.0-18.0) g/dl Hct 33.0 L (42.0-52.0) % MCV 89.2 (80.0-98.0) fL MCH 29.7 (27.0-33.0) pg MCHC 33.3 (31.0-36.0) g/dl RDW 13.3 (11.0-16.0) % Plt Count 245 (160-400) X10*3/uL MPV 10.5 (9.4-12.4) fL Immature Gran % (Auto) 1.4 H (0.0-0.4) % Neut % (Auto) 66.5 (45-73) % Lymph % (Auto) 22.3 (20-40) % Harding % (Auto) 8.0 (2-11) % Eos % (Auto) 1.7 (0-4) % Baso % (Auto) 0.1 (0-2) % Lymph # (Auto) 3.3 (1.2-4.9) X10*3/uL Harding # (Auto) 1.2 (0.1-1.2) X10*3/uL Eos # (Auto) 0.3 (0.0-0.4) X10*3/uL Baso # (Auto) 0.0 (0.0-0.2) X10*3/uL Abs Immat Gran (auto) 0.20 H (0.00-0.03) X10*3/uL Absolute Neuts (auto) 9.7 H (2.0-8.3) x10*3/uL Absolute Nucleated RBC 0.000 (0.0-0.012) X10*3/uL Nucleated RBC % (auto) 0.0 (0.0-0.2) /100WBC Sodium 142 (135-145) mmol/L Potassium 3.9 (3.3-5.1) mmol/L Chloride 108 (96-108) mmol/L Carbon Dioxide 30 H (22-29) mmol/L Anion Gap 8 L (12-20) BUN 24 H (9-16) mg/dL Creatinine 1.00 (0.5-1.4) mg/dL Estim Creat Clear Calc TNP Estimated GFR > 60 Random Glucose 122 H (60-115) mg/dL Calcium 8.1 L (8.4-10.2) mg/dL Magnesium 1.9 (1.6-2.6) mg/dL Total Bilirubin 0.7 (0.0-1.0) mg/dL Direct Bilirubin 0.2 (0.0-0.5) mg/dL AST 13 (5-37) U/L ALT 14 (0-40) U/L Alkaline Phosphatase 77 (39-117) U/L B-Natriuretic Peptide 74 (<100) pg/mL Total Protein 5.5 L (6.5-8.0) g/dL Albumin 3.2 L (3.5-5.0) g/dL Urine Color Urine Appearance Urine pH (5.0-9.0) Ur Specific [place] (1.005-1.025) Urine Protein (Neg-Trace) mg/dL Urine Glucose (UA) (Negative) mg/dL Urine Ketones (Negative) mg/dL Urine Blood (Negative) Urine Nitrite (Negative) Ur Leukocyte Esterase (Negative) COVID-19 (NICOLE) (Negative) COVID-19 Clin Com 10/30/22 10/30/22 Range/Units 09:36 11:40 WBC (4.8-10.8) X10*3/uL RBC (4.60-5.80) X10*6/uL Hgb (14.0-18.0) g/dl Hct (42.0-52.0) % MCV (80.0-98.0) fL MCH (27.0-33.0) pg MCHC (31.0-36.0) g/dl RDW (11.0-16.0) % Plt Count (160-400) X10*3/uL MPV (9.4-12.4) fL Immature Gran % (Auto) (0.0-0.4) % Neut % (Auto) (45-73) % Lymph % (Auto) (20-40) % Harding % (Auto) (2-11) % Eos % (Auto) (0-4) % Baso % (Auto) (0-2) % Lymph # (Auto) (1.2-4.9) X10*3/uL Harding # (Auto) (0.1-1.2) X10*3/uL Eos # (Auto) (0.0-0.4) X10*3/uL Baso # (Auto) (0.0-0.2) X10*3/uL Abs Immat Gran (auto) (0.00-0.03) X10*3/uL Absolute Neuts (auto) (2.0-8.3) x10*3/uL Absolute Nucleated RBC (0.0-0.012) X10*3/uL Nucleated RBC % (auto) (0.0-0.2) /100WBC Sodium (135-145) mmol/L Potassium (3.3-5.1) mmol/L Chloride (96-108) mmol/L Carbon Dioxide (22-29) mmol/L Anion Gap (12-20) BUN (9-16) mg/dL Creatinine (0.5-1.4) mg/dL Estim Creat Clear Calc Estimated GFR Random Glucose (60-115) mg/dL Calcium (8.4-10.2) mg/dL Magnesium (1.6-2.6) mg/dL Total Bilirubin (0.0-1.0) mg/dL Direct Bilirubin (0.0-0.5) mg/dL AST (5-37) U/L ALT (0-40) U/L Alkaline Phosphatase (39-117) U/L B-Natriuretic Peptide (<100) pg/mL Total Protein (6.5-8.0) g/dL Albumin (3.5-5.0) g/dL Urine Color Yellow Urine Appearance Clear Urine pH 5.5 (5.0-9.0) Ur Specific [place] 1.020 (1.005-1.025) Urine Protein Negative (Neg-Trace) mg/dL Urine Glucose (UA) Negative (Negative) mg/dL Urine Ketones Negative (Negative) mg/dL Urine Blood Negative (Negative) Urine Nitrite Negative (Negative) Ur Leukocyte Esterase Negative (Negative) COVID-19 (NICOLE) Negative (Negative) COVID-19 Clin Com See Note Independent Interpretation I performed an independent interpretation of an: EKG Interpretation: My interpretation EKG sinus bradycardia with first-degree AV block. Rate of 50. QRS 84. PVCs no longer present when compared to prior. No STEMI Radiology Impression Discussion of test interpretation with radiology: I have reviewed the radiologist's reading. Independent Historian Clinical information obtained from an independent historian. History obtained from or confirmed by: Other External Record Review External record reviewed: Office record, Outpatient record, Prior outpatient labs, Prior outpatient radiology and Primary care record Prescription Management I considered prescription management with: Pain Medication Chronic Conditions Patient?s care impacted by: Other Discharge Plan Discharge Clinical Impression: Lumbar compression fracture, Physical deconditioning Patient Disposition: Still a Patient Prescriptions: No Action clopidogrel 75 mg tablet 75 mg PO DAILY 90 Days Qty: 90 3RF Xarelto 20 mg tablet 20 mg PO DAILY 90 Days Qty: 90 2RF Rx Instructions: must administer with evening meal folic acid 1 mg tablet 1 mg PO DAILY Qty: 90 1RF tramadol 50 mg tablet 50 mg PO TID PRN (Reason: Pain (Scale Score 4-6)) 30 Days Qty: 21 2RF terazosin 5 mg capsule 1 cap PO BEDTIME cholecalciferol (vitamin D3) [Vitamin D3] 25 mcg (1,000 unit) Tablet 25 mcg PO DAILY prednisone 20 mg tablet 40 mg PO DAILY Qty: 10 0RF Rx Instructions: PT SHOULD BE FINISHING THERAPY 10/31/22 valacyclovir 1 gram tablet 1,000 mg PO Q8H Qty: 15 0RF cefuroxime axetil 500 mg tablet 500 mg PO BID Qty: 10 0RF Rx Instructions: PT SHOULD BE FINISHING THERAPY 10/31/22 neomycin-polymyxin B-dexameth 3.5mg/mL-10,000 unit/mL-0.1 % drops,suspension 1 drp ophthalmic (eye) Q8H Qty: 5 0RF calcium carbonate-vitamin D3 250 mg-3.125 mcg (125 unit) Tablet 500 mg PO BIDWM Qty: 30 0RF
[2022-10-30 09:27] VITALS: BP 146/34; PULSE 61; TEMP 36.7; O2SAT 97
--- NOTE | 2022-10-30 09:45 | ECG_ITS ---
Test Reason : back pain Blood Pressure : / mmHG Vent. Rate : 050 BPM Atrial Rate : 050 BPM P-R Int : 244 ms QRS Dur : 084 ms QT Int : 454 ms P-R-T Axes : 036 -21 -06 degrees QTc Int : 413 ms Sinus bradycardia with 1st degree A-V block Minimal voltage criteria for LVH, may be normal variant ( R in aVL ) Nonspecific ST abnormality Abnormal ECG When compared with ECG of 19-OCT-2022 09:57, Premature ventricular complexes are no longer Present Referred By: Jenelle Bolaños Electronically Signed By:ARBEN WU MD
[2022-10-30 09:49] LABS: MANUAL DIFF FLAG NO
[2022-10-30 09:53] LABS: Basophils Percent Auto 0.1 % (0-2); Eosinophils Absolute Auto 0.3 X10*3/uL (0.0-0.4); Eosinophils Percent Auto 1.7 % (0-4); Imm Gran Pct Auto 1.4 % (0.0-0.4); Lymphocytes Absolute Auto 3.3 X10*3/uL (1.2-4.9); Lymphocytes Percent Auto 22.3 % (20-40); Mean Corpuscular HGB Conc 33.3 g/dl (31.0-36.0); Mean Corpuscular Hemoglobin 29.7 pg (27.0-33.0); Mean Corpuscular Volume 89.2 fL (80.0-98.0); Mean Platelet Volume 10.5 fL (9.4-12.4); Monocytes Absolute Auto 1.2 X10*3/uL (0.1-1.2); Neutrophils Absolute Auto 9.7 x10*3/uL (2.0-8.3); Neutrophils Percent Auto 66.5 % (45-73); Platelet Count 245 X10*3/uL (160-400); Red Cell Distribution Width 13.3 % (11.0-16.0); White Blood Count 14.6 X10*3/uL (4.8-10.8)
[2022-10-30] MEDS: Morphine Sulfate Immed Release 15 MG TABLET PO (09:54)
[2022-10-30 10:09] LABS: Alanine Aminotransferase 14 U/L (0-40); Albumin Level 3.2 g/dL (3.5-5.0); Alkaline Phosphatase 77 U/L (39-117); Anion Gap 8 (12-20); Aspartate Amino Transferase 13 U/L (5-37); Bilirubin Direct 0.2 mg/dL (0.0-0.5); Bilirubin Total 0.7 mg/dL (0.0-1.0); Blood Urea Nitrogen 24 mg/dL (9-16); Calcium 8.1 mg/dL (8.4-10.2); Carbon Dioxide 30 mmol/L (22-29); Chloride 108 mmol/L (96-108); Estimated Glomerular Filt Rate > 60; Glucose Random 122 mg/dL (60-115); Magnesium 1.9 mg/dL (1.6-2.6); Potassium 3.9 mmol/L (3.3-5.1); Sodium 142 mmol/L (135-145); Total Protein 5.5 g/dL (6.5-8.0)
[2022-10-30 10:12] LABS: COVID-19 Test Negative (Negative); IDNOW Serial# BCCEAD1C
[2022-10-30 10:14] LABS: B Type Natriuretic Peptide 74 pg/mL (<100)
[2022-10-30 10:31] VITALS: BP 148/48; PULSE 48; TEMP 36.6; O2SAT 96
[2022-10-30 10:38] VITALS: BMI 22.1
--- NOTE | 2022-10-30 10:44 | PHA.MEDREC ---
Pharmacy Consult ? Medication Reconciliation Pharmacy has completed the medication reconciliation. Completed med rec using discharge informatio from 4 days ago. This pharmacist interviewed patient for last med rec and had to use claim history because he is poor historian and didn't know his medications.
[2022-10-30 11:50] LABS: Appearance Urine Clear; Color Urine Yellow; Glucose Urine UA Negative (Negative); Leukocyte Esterase Urine Negative (Negative); Nitrite Urine Negative (Negative); PH 5.5 (5.0-9.0); Urine Blood Negative (Negative); Urine Ketones Negative (Negative); Urine Protein Negative (Neg-Trace)
[2022-10-30 12:54] VITALS: BP 123/47; PULSE 51; RESP 17; TEMP 36.8; O2SAT 95
[2022-10-30] MEDS: Lidocaine 4 % Patch ADH..PATCH 1 PATCH TRANSDERMA (13:04)
[2022-10-30] MEDS: traMADoL HCL 50 MG TABLET PO (13:04)
--- NOTE | 2022-10-30 13:32 | MHC.CM.ED ---
Addendum entered by Maria Isabel Fischer 10/30/22 13:39: Darion states patient has [employer] for insurance and that he provided a copy of patient's insurance card to during his last admission. Insurance verification has patient's insurance as [employer]. Addendum entered by Maria Isabel Fischer 10/30/22 13:38: Patient received 1 Pfizer vaccine and 4 Moderna vaccines. Original Note: Received case management consult from Jenelle EDWARDS. Patient came to the ER due to back pain and diff ambulating. Work up essentially negative. Physical therapy eval completed. Short term rehab is recommended. Attempted to meet with patient in regards to discharge planning. Nursing care currently being provided. Spoke with patient's son, Darion, via telephone at [phone] in regards to discharge planning. Patient was discharged from [facility] on 10/24 with [facility]. Short term rehab was recommended but patient declined at that time. Per Darion, patient's friends were able to convince patient he is not safe at home and he is now agreeable to rehab. Patient has been to multiple prison facilities including [facility], [facility], [facility] and [facility]. Darion states patient did not like any of those facilities. List of facilities provided to Darion via email for facilities in the area. Darion will look at facility and provide choices to case management. Continue to monitor for d/c needs.
--- NOTE | 2022-10-30 14:00 | PC.NURSE ---
Pt not wanting to move from left side laying. MD aware of pts pain level.
[2022-10-30 14:09] VITALS: BP 146/58; PULSE 53; RESP 14; TEMP 36.8; O2SAT 97
--- NOTE | 2022-10-30 17:57 | PC.NURSE ---
Pt resting comfortably in bed. Was fed 1:1 for lunch
--- NOTE | 2022-10-30 18:44 | MHC.CM.ED ---
Spoke with HCP/son Darion with 3 facilities that have offered pt a bed. [facility]. Darion requests ELS[facility]., but is concerned his father will not want to go so far. CM will speak with patient. Darion also requests to speak with his father. CM spoke with patient. He is agreeable to [facility]LS[facility]. They have clinically accepted the patient. Accepted in [facility]. Will follow up in the morning. Pt is agreeable that he needs PT. Pt did speak with his son. Son, Darion requests that CM call him in the morning with updated plan for ELS[facility]. CM will follow for discharge planning.
[2022-10-30 19:40] VITALS: BP 149/46; PULSE 64; RESP 18; TEMP 36.5; O2SAT 96
[2022-10-30] MEDS: Acetaminophen 325 MG TABLET 650 MG PO (19:55)
--- NOTE | 2022-10-30 20:09 | PC.NURSE ---
This story writer assumed care of this Pt at 1900. Pt A&O to self, reports 8/10 headache and back pain. Verbal order given by provider. Med given as documented. Pt repositioned. Skin intact.
[2022-10-30] MEDS: valACYclovir HCL 1,000 MG TABLET 1000 MG PO (22:14)
[2022-10-30] MEDS: Calcium + Vitamin D 250 MG TABLET 500 MG PO (22:14)
[2022-10-30] MEDS: NeoMY/Polymyx/Dexameth Oph Sus 5 ML BOTTLE 1 DROP EYE-BOTH (23:15)
[2022-10-30 23:22] VITALS: BP 118/48; PULSE 58; RESP 14; TEMP 36.8; O2SAT 96
[2022-10-31 03:44] VITALS: BP 128/44; PULSE 55; RESP 14; TEMP 36.6; O2SAT 96
--- NOTE | 2022-10-31 03:56 | PC.NURSE ---
Pt incontinent of urine, incontinent care provided with two assist. Pt repositioned and new blankets given.
--- NOTE | 2022-10-31 05:05 | MHC.EDTECH ---
pt repositioned and changed. small amount of urine noted. patient used urinal multiple times
[2022-10-31] MEDS: NeoMY/Polymyx/Dexameth Oph Sus 5 ML BOTTLE 1 DROP EYE-BOTH ×3 (05:47→21:30)
[2022-10-31] MEDS: valACYclovir HCL 1,000 MG TABLET 1000 MG PO ×2 (05:52→13:19)
[2022-10-31] MEDS: traMADoL HCL 50 MG TABLET PO ×2 (05:52→13:19)
[2022-10-31] MEDS: Clopidogrel Bisulfate 75 MG TABLET PO (07:31)
[2022-10-31] MEDS: Folic Acid 1 MG TABLET PO (07:31)
[2022-10-31] MEDS: predniSONE 20 MG TABLET 40 MG PO (07:31)
[2022-10-31] MEDS: Cholecalciferol (Vitamin D3) 25 MCG TABLET PO (07:31)
[2022-10-31] MEDS: Calcium + Vitamin D 250 MG TABLET 500 MG PO ×2 (07:31→17:29)
--- NOTE | 2022-10-31 07:35 | PC.NURSE ---
patient alert, oriented to self. sitting up in bed eating breakfast. took morning medications with water, no difficulty noted.
[2022-10-31 08:27] VITALS: BP 110/52; PULSE 64; RESP 15; TEMP 36.8; O2SAT 95
--- NOTE | 2022-10-31 10:06 | MHC.EDTECH ---
Patient found to be wet. Pt cleaned up- underpad and hospital gown changed with help of algebra teacher-AJ. Pt tolerated well. Resting quietly watching TV.
[2022-10-31 11:19] VITALS: BP 110/52; PULSE 64; O2SAT 95
--- NOTE | 2022-10-31 11:39 | MHC.CM.ED ---
Patient remains in ER. [facility] is no longer able to offer a bed because they are not contracted with patient's insurance. [facility] and [facility] can offer beds. T/W met with patient. Patient would like to discuss options with son. Patient and son spoke via telephone. [facility] is 1st choice. [facility] is in the process of obtaining insurance auth. Patient's daughter, Victorina Lizama, called and requested an update. Above information provided to Victorina Lizama. Continue to monitor for d/c needs.
--- NOTE | 2022-10-31 12:01 | MHC.EDTECH ---
Patient wet and cleaned up with new underpad and hospital gown put on. Pt tolerated well. Repositioned in the stretcher and watching TV.
--- NOTE | 2022-10-31 15:39 | MHC.CM.ED ---
Patient remains in ER. Will transfer to [facility] via [facility] when insurance auth is obtained. Continue to monitor for d/c needs.
[2022-10-31 16:18] VITALS: BP 112/70; PULSE 72; RESP 16; TEMP 36.3; O2SAT 97
[2022-10-31] MEDS: Rivaroxaban 20 MG TABLET PO (17:29)
--- NOTE | 2022-10-31 19:22 | MHC.CM.ED ---
[facility] obtained auth. Son, Darion aware. Pt aware. Pt is somewhat confused as to where he is and why he needs rehab. Wants to go home. CM explained that patient had agreed to needing PT yesterday. Pt is agreeable after some conversation. Will transport tomorrow 3/4 due to lateness of hour and patient confusion/sun-downing. BLS booked for 11 am. PA and RN aware. Paper work completed and given to loading unit tool setter. CM will follow for discharge needs.
--- NOTE | 2022-10-31 19:30 | MHC.EDTECH ---
pt was given dinner ,pt ate 100 % of grilled cheese sandwich ,soup ,pudding and for fluids ,drank 480 ml juice .
[2022-10-31] MEDS: Doxazosin Mesylate 2 MG TABLET 4 MG PO (21:30)
[2022-10-31 21:42] VITALS: BP 170/71; PULSE 74; RESP 16; TEMP 36.6; O2SAT 97
--- NOTE | 2022-10-31 21:47 | MHC.EDTECH ---
2200 rounding done ,vitals sign taken pt resting in bed ,600 ml urine empty .
--- NOTE | 2022-11-01 01:00 | MHC.EDTECH ---
pt was incontinent of urine ,care given ,bedding change .
[2022-11-01 02:42] VITALS: BP 169/74; PULSE 74; RESP 15; TEMP 36.6; O2SAT 96
--- NOTE | 2022-11-01 04:00 | MHC.EDTECH ---
0400 ROUNDING DONE ,PT SLEEPING ,AND IS DRY .
[2022-11-01 06:00] VITALS: BP 156/56; PULSE 55; RESP 15; TEMP 36.8; O2SAT 96
--- NOTE | 2022-11-01 06:00 | MHC.EDTECH ---
0600 rounding done ,vitals sign taken ,pt awake ,300 ml urine empty ,pt dry .
[2022-11-01 07:30] VITALS: BP 137/69; PULSE 65; RESP 10; TEMP 36.8; O2SAT 97
[2022-11-01] MEDS: Folic Acid 1 MG TABLET PO (08:57)
[2022-11-01] MEDS: Clopidogrel Bisulfate 75 MG TABLET PO (08:57)
[2022-11-01] MEDS: Cholecalciferol (Vitamin D3) 25 MCG TABLET PO (08:57)
[2022-11-01] MEDS: Calcium + Vitamin D 250 MG TABLET 500 MG PO (08:57)
--- NOTE | 2022-11-01 13:20 | PC.NURSE ---
report called to str
== END 2022-11-01 13:20 | disposition skilled nursing facility (03) ==
PROVIDERS: Physician Assistant; Emergency Provider Student in an Organized Health Care Education/Training Program; PCP Internal Medicine
DX: M48.56XA Collapsed vertebra, not elsewhere classified, lumbar region, initial encounter for fracture (principal); R26.81 Unsteadiness on feet; M54.50 Low back pain, unspecified; R06.02 Shortness of breath; Z20.822 Contact with and (suspected) exposure to COVID-19; Z20.828 Contact with and (suspected) exposure to other viral communicable diseases; Z79.899 Other long term (current) drug therapy
CPT/HCPCS: 71045; 80048; 80076; 81003; 83735; 83880; 85025; 87635; 93005; 97110; 97162; 99285

== ENCOUNTER 2023-02-02 17:13 | Inpatient (IN) | payer OTHER, SELFPAY ==
[2023-02-02] VITALS (7 sets, daily range): BP systolic 99–148; BP diastolic 60–84; PULSE 97–140; RESP 12–26; TEMP 36.4–36.8; O2SAT 93–97; BMI 21.7
--- NOTE | ~2023-02-02 | XR_ITS ---
EXAMINATION: XR CHEST CLINICAL INFORMATION: Mental status change COMPARISON: Previous chest x-ray October [address] August 2021 TECHNIQUE: Frontal view of the chest was obtained. FINDINGS: The cardiac and mediastinal contours are stable. The lung volumes are low. There are coarse lung markings and nodular opacities, question from bronchial wall thickening. There may be denser atelectasis or consolidation at the left lung base. No pleural effusion or pneumothorax. Degenerative changes of the spine. XR/XR chest 1V IMPRESSION: Low lung volumes. Question bronchopneumonia.
--- NOTE | ~2023-02-02 | CT_ITS ---
EXAMINATION: CT HEAD WITHOUT CONTRAST CLINICAL INFORMATION: Altered mental status. Patient on Xarelto COMPARISON: Head CT from 10/19/2022. TECHNIQUE: Contiguous axial imaging was performed from the skullbase to vertex without intravenous administration of contrast. Limited study with motion artifacts. This CT examination was performed using dose optimization techniques as appropriate, variously including the following: *Automated exposure control *Adjustment of mA and/or kV according to patient size (this includes techniques or standardized protocols for targeted exams where dose is matched to indication/reason for exam; i.e. extremities or head) *Use of iterative reconstruction technique . DLP: 743 mGy-cm. FINDINGS: There is no evidence of acute intracranial hemorrhage or territorial infarction. No abnormal mass effect or midline shift is seen. No extra-axial fluid collections are identified. No imaging findings suspicious for hydrocephalus. Moderate to severe chronic white matter microangiopathic changes again noted. Moderate diffuse parenchymal volume loss again noted. There is a chronic infarct in the right frontal lobe involving the right basal ganglia, as on prior imaging with mild ex vacuo dilatation of the right lateral ventricle. The osseous structures and soft tissues are normal. The mastoid air cells and visualized portions of the paranasal sinuses are well aerated. CT/CT head/brain wo IV con IMPRESSION: No acute intracranial hemorrhage or territorial infarction. Chronic right basal ganglia/right frontal lobe infarct. Extensive chronic white matter microangiopathy and diffuse parenchymal volume loss.
--- NOTE | ~2023-02-02 | CT_ITS ---
EXAMINATION: CT CHEST WITHOUT CONTRAST CLINICAL INFORMATION: Pneumonia COMPARISON: Previous chest x-ray from yesterday and chest CT August 2021 TECHNIQUE: Multidetector volumetric CT imaging of the chest was done. Axial MIP volume rendering provided. Sagittal and coronal reformatted images were obtained. This CT examination was performed using dose optimization techniques as appropriate, variously including the following: *Automated exposure control *Adjustment of mA and/or kV according to patient size (this includes techniques or standardized protocols for targeted exams where dose is matched to indication/reason for exam; i.e. extremities or head) *Use of iterative reconstruction technique DLP: 218 mGy-cm FINDINGS: LUNGS: Exam is limited due to respiratory motion. There are increased peripheral interstitial markings with increased reticulation. This is is seen diffusely throughout the lungs but greatest at the lung bases. Appearances is suggestive of mild interstitial lung disease. This does not appear appreciably changed from prior exam. No definite pneumonia. MEDIASTINUM: Normal heart size. No pericardial effusion. Severe coronary artery calcification. Aortic valve calcification. Normal caliber thoracic aorta. Small mediastinal lymph nodes. No enlarged lymph nodes. CORONARY ARTERY CALCIFICATION: Severe PLEURA: There is no pleural effusion. No pleural mass or thickening. AXILLA: No lymphadenopathy. UPPER ABDOMEN: Stable small low-attenuation right adrenal lesion suggestive of a benign lipid rich adenoma. Bones: Mild old T11 and T5 vertebral body compression fractures similar to previous exam. CT/CT chest wo IV con IMPRESSION: Limited exam due to respiratory motion. Probable mild interstitial lung disease. No evidence of pneumonia. Fleischner guidelines were followed.
--- NOTE | 2023-02-02 17:47 | ED.AMS ---
HPI - Altered Mental Status General Chief Complaint: Altered Mental Status Stated Complaint: altered mental status Time Seen by Provider: 02/02/23 17:46 History of Present Illness HPI narrative: 82-year-old male with history of AAA, interstitial lung disease, CAD , ischemic cardiomyopathy, paroxysmal atrial fibrillation anticoagulated with Xarelto hypertension, hypercholesterolemia, GERD history of multiple vertebral fractures following mechanical fall in 07/2019, and anxiety/depression?sent from skilled nursing for increased confusion noted to be in AFib with heart rate 160-220 received 15 mg of Cardizem by EMS on arrival patient's heart rate was 115-140 patient is severely demented , afebrile limited HPI Related Data Home Medications Medication Instructions Recorded Confirmed cholecalciferol (vitamin D3) 25 25 mcg PO DAILY 10/19/22 02/02/23 mcg (1,000 unit) tablet (Vitamin D3) terazosin 5 mg capsule 1 cap PO BEDTIME 10/19/22 02/02/23 acetaminophen 325 mg tablet 650 mg PO Q4H PRN pain or fever 02/02/23 02/02/23 acetaminophen 500 mg tablet 1,000 mg PO TID 02/02/23 02/02/23 bisacodyl 10 mg rectal suppository 10 mg MI DAILY PRN Constipation 02/02/23 02/02/23 docusate sodium 100 mg capsule 100 mg PO BID 02/02/23 02/02/23 magnesium hydroxide 400 mg/5 mL 30 ml PO DAILY PRN Constipation 02/02/23 02/02/23 oral suspension (Milk of Magnesia) naloxone 0.4 mg/mL injection 0.4 mg subcut Q3M PRN Opiate 02/02/23 02/02/23 solution Reversal omeprazole 20 mg capsule,delayed 40 mg PO DAILY@0630 02/02/23 02/02/23 release polyethylene glycol 3350 17 gram 17 g PO DAILY 02/02/23 02/02/23 oral powder packet (Miralax) rivaroxaban 20 mg tablet (Xarelto) 20 mg PO DAILY@1700 02/02/23 02/02/23 sennosides 8.6 mg tablet (senna) 17.2 mg PO BEDTIME PRN Constipation 02/02/23 02/02/23 sodium phosphates 19 gram-7 118 ml MI DAILY PRN Constipation 02/02/23 02/02/23 gram/118 mL enema (Fleet Enema) Previous Rx's Medication Instructions Recorded clopidogrel 75 mg tablet 75 mg PO DAILY 90 days #90 tabs 08/15/21 folic acid 1 mg tablet 1 mg PO DAILY #90 tabs 12/24/21 tramadol 50 mg tablet 50 mg PO TID PRN Pain (Scale Score 08/29/22 4-6) 30 days #21 tabs calcium carbonate 250 mg-vitamin 500 mg PO BIDWM #30 tabs 10/25/22 D3 3.125 mcg (125 unit) tablet Allergies Allergy/AdvReac Type Severity Reaction Status Date / Time No Known Allergies Allergy Verified 02/02/23 18:15 [No Known Allergies*] Review of Systems Review of Systems: Yes Unobtainable due to mental status (Dementia) [facility] Past Medical History Medical History Abdominal aortic aneurysm Acetabular fracture Anxiety and depression Compression fracture of L3 vertebra Compression fracture of L3 vertebra Corneal abrasion, left Coronary artery disease CVA (cerebral vascular accident) GERD (gastroesophageal reflux disease) Hypercholesterolemia Hypertension Interstitial lung disease Left rib fracture NSTEMI (non-ST elevated myocardial infarction) Paroxysmal A-fib Rotator cuff dysfunction Tubular adenoma of colon Ulnar neuropathy Vertebral fracture Surgical History History of appendectomy History of bilateral cataract extraction History of bursectomy History of hemorrhoidectomy S/P cardiac catheterization Family History Family History Father Medical history unknown Mother Medical history unknown Social History Social History Household Members: Unknown / Unable to assess Housing: House Do you presently have visiting nurse or other home services: No Alcohol intake: never Patient Tobacco Use Status: Never used Tobacco e-Cigarette/Vaping Use: Never Used Second Hand Smoke Exposure: No Advance Directives: Yes Advance Directives on File: Yes Advance Directives Date on File: 02/02/23 service: No Current occupational status: retired Cognitive needs: No Hearing needs: Yes Vision needs: Yes Physical Exam ED Vital Signs: Vital Signs - 24 hr 02/02/23 18:09 02/02/23 18:12 02/02/23 19:17 Temperature 98.3 F 97.6 F Pulse Rate 125 H 128 H 132 H Respiratory Rate 26 H 21 H 13 Blood Pressure 99/63 113/71 148/67 H Pulse Oximetry 94 95 93 Oxygen Delivery Method Room Air Room Air Room Air 02/02/23 21:31 Temperature Pulse Rate 105 H Respiratory Rate 15 Blood Pressure 130/84 Pulse Oximetry 97 Oxygen Delivery Method Room Air BMI result Body Mass Index 21.7 Appearance: Awake No acute distress. Severely demented Eyes: PERRLA, ENT: Pharynx normal. Oral Mucosa moist Neck: Normal inspection. Neck supple. CVS: Normal heart rate and rhythm. Pulses normal. Respiratory: No respiratory distress. Equal air entry bilateral, no wheezing/rales/rhonchi Abdomen: Soft and nontender. Bowel sounds are present, Skin: Skin warm and dry. Normal skin color. Normal skin turgor. Extremities: No lower extremity edema. No calf tenderness Neuro: Severely demented No motor deficit. No sensory deficit.No cerebellar signs , cranial nerves II-XII intact Medications Administered Generic Name Dose Route Start Last Admin Trade Name Freq PRN Reason Stop Dose Admin Ceftriaxone Sodium 1 gm/ 50 mls @ 100 mls/hr 02/02/23 22:15 02/02/23 23:45 Sodium Chloride IV Infused Q24H SAMPSON Infusion Doxycycline Hyclate 100 mg/ 250 mls @ 166.67 mls/hr 02/02/23 22:15 02/02/23 23:44 Sodium Chloride IV 166.67 mls/hr Q12H SAMPSON Administration Sodium Chloride 3 ml 02/03/23 00:00 02/02/23 23:44 0.9 % Sodium Chloride Flush 3 Ml Syringe IVFLUSH 3 ml QSHIFT SAMPSON Administration Discontinued Medications Generic Name Dose Route Start Last Admin Trade Name Freq PRN Reason Stop Dose Admin Diltiazem HCl 10 mg 02/02/23 18:57 02/02/23 19:20 Diltiazem Hcl 50 Mg/10 Ml Vial IVPUSH 02/02/23 18:58 10 mg STAT STA Administration Sodium Chloride 1,000 mls @ 999 mls/hr 02/02/23 18:04 02/02/23 19:23 Ns IV 02/02/23 19:04 Infused .Q1H1M ONE Infusion Lorazepam 1 mg 02/02/23 19:52 02/02/23 19:59 Lorazepam 2 Mg/Ml Vial IVPUSH 02/02/23 19:53 1 mg ONCE ONE Administration Metoprolol Tartrate 5 mg 02/02/23 19:38 02/02/23 19:59 Metoprolol Tartrate 5 Mg/5 Ml Vial IVPUSH 02/02/23 19:39 5 mg ONCE ONE Administration Metoprolol Tartrate 25 mg 02/02/23 22:00 02/02/23 22:28 Metoprolol Tartrate 25 Mg Tablet PO Not Given BID [facility] Protocol Medical Decision Making Medical Decision Making [facility] Narrative: Patient has severe dementia with AFib with rapid ventricular rate partially responded to 2 doses of Cardizem. 5 mg of Lopressor given which decreased the rate less than 100 still in AFib. Patient has elevated troponin secondary to demand ischemia no acute ischemic changes has leukocytosis etiology not very clear no signs of infection at this time UA is pending patient is afebrile Consult Healthcare Provider Management of the patient was discussed with: Hospitalist Lab Data [facility] Lab Attestation statement: I reviewed the patient's lab results. 02/02/23 18:18 02/02/23 18:18 Labs: Lab Results 02/02/23 02/02/23 02/02/23 Range/Units 18:18 18:18 18:18 WBC 16.2 H (4.8-10.8) X10*3/uL RBC 3.23 L (4.60-5.80) X10*6/uL Hgb 10.3 L (14.0-18.0) g/dl Hct 30.5 L (42.0-52.0) % MCV 94.4 (80.0-98.0) fL MCH 31.9 (27.0-33.0) pg MCHC 33.8 (31.0-36.0) g/dl RDW 15.3 (11.0-16.0) % Plt Count 273 (160-400) X10*3/uL MPV 11.1 (9.4-12.4) fL Immature Gran % (Auto) 0.6 H (0.0-0.4) % Neut % (Auto) 85.1 H (45-73) % Lymph % (Auto) 6.5 L (20-40) % [place] % (Auto) 6.4 (2-11) % Eos % (Auto) 1.0 (0-4) % Baso % (Auto) 0.4 (0-2) % Lymph # (Auto) 1.1 L (1.2-4.9) X10*3/uL [place] # (Auto) 1.0 (0.1-1.2) X10*3/uL Eos # (Auto) 0.2 (0.0-0.4) X10*3/uL Baso # (Auto) 0.1 (0.0-0.2) X10*3/uL Abs Immat Gran (auto) 0.10 H (0.00-0.03) X10*3/uL Absolute Neuts (auto) 13.8 H (2.0-8.3) x10*3/uL Absolute Nucleated RBC 0.000 (0.0-0.012) X10*3/uL Nucleated RBC % (auto) 0.0 (0.0-0.2) /100WBC PT 17.3 H (10.0-13.1) SEC INR 1.5 H (0.9-1.1) Sodium 141 (135-145) mmol/L Potassium 4.3 (3.3-5.1) mmol/L Chloride 109 H (96-108) mmol/L Carbon Dioxide 24 (22-29) mmol/L Anion Gap 12 (12-20) BUN 12 (9-16) mg/dL Creatinine 1.07 (0.5-1.4) mg/dL Estim Creat Clear Calc 47.9 Estimated GFR > 60 Random Glucose 132 H (60-115) mg/dL Calcium 8.4 (8.4-10.2) mg/dL Magnesium 1.6 (1.6-2.6) mg/dL Total Bilirubin 0.4 (0.0-1.0) mg/dL AST 13 (5-37) U/L ALT 7 (0-40) U/L Alkaline Phosphatase 101 (39-117) U/L Troponin I High Sens (<3.5-35.0) ng/L Total Protein 5.5 L (6.5-8.0) g/dL Albumin 3.2 L (3.5-5.0) g/dL 02/02/23 Range/Units 18:18 WBC (4.8-10.8) X10*3/uL RBC (4.60-5.80) X10*6/uL Hgb (14.0-18.0) g/dl Hct (42.0-52.0) % MCV (80.0-98.0) fL MCH (27.0-33.0) pg MCHC (31.0-36.0) g/dl RDW (11.0-16.0) % Plt Count (160-400) X10*3/uL MPV (9.4-12.4) fL Immature Gran % (Auto) (0.0-0.4) % Neut % (Auto) (45-73) % Lymph % (Auto) (20-40) % [place] % (Auto) (2-11) % Eos % (Auto) (0-4) % Baso % (Auto) (0-2) % Lymph # (Auto) (1.2-4.9) X10*3/uL [place] # (Auto) (0.1-1.2) X10*3/uL Eos # (Auto) (0.0-0.4) X10*3/uL Baso # (Auto) (0.0-0.2) X10*3/uL Abs Immat Gran (auto) (0.00-0.03) X10*3/uL Absolute Neuts (auto) (2.0-8.3) x10*3/uL Absolute Nucleated RBC (0.0-0.012) X10*3/uL Nucleated RBC % (auto) (0.0-0.2) /100WBC PT (10.0-13.1) SEC INR (0.9-1.1) Sodium (135-145) mmol/L Potassium (3.3-5.1) mmol/L Chloride (96-108) mmol/L Carbon Dioxide (22-29) mmol/L Anion Gap (12-20) BUN (9-16) mg/dL Creatinine (0.5-1.4) mg/dL Estim Creat Clear Calc Estimated GFR Random Glucose (60-115) mg/dL Calcium (8.4-10.2) mg/dL Magnesium (1.6-2.6) mg/dL Total Bilirubin (0.0-1.0) mg/dL AST (5-37) U/L ALT (0-40) U/L Alkaline Phosphatase (39-117) U/L Troponin I High Sens 119.9 H* D (<3.5-35.0) ng/L Total Protein (6.5-8.0) g/dL Albumin (3.5-5.0) g/dL Independent Interpretation I performed an independent interpretation of an: EKG Interpretation: Atrial fibrillation with ventricular rate 137 beats per minute occasional unifocal PVC no acute ischemic change Discharge Plan Discharge Clinical Impression: Atrial fibrillation with rapid ventricular response Patient Disposition: Admitted As Inpatient
--- NOTE | 2023-02-02 18:04 | ECG_ITS ---
Test Reason : afib Blood Pressure : / mmHG Vent. Rate : 137 BPM Atrial Rate : 000 BPM P-R Int : 000 ms QRS Dur : 072 ms QT Int : 344 ms P-R-T Axes : 000 -16 025 degrees QTc Int : 519 ms Supraventricular tachycardia with occasional Premature ventricular complexes Low voltage QRS Borderline ECG When compared with ECG of 30-OCT-2022 10:01, Premature ventricular complexes are now Present WA interval has decreased Vent. rate has increased BY 87 BPM Referred By: Oracio Sparks Electronically Signed By:Andrew Hwang
[2023-02-02] MEDS: 0.9 % Sodium Chloride 1,000 ML 999 ML IV (18:16)
[2023-02-02 18:25] LABS: MANUAL DIFF FLAG NO
[2023-02-02 18:29] LABS: Basophils Absolute Auto 0.1 X10*3/uL (0.0-0.2); Basophils Percent Auto 0.4 % (0-2); Eosinophils Absolute Auto 0.2 X10*3/uL (0.0-0.4); Hematocrit 30.5 % (42.0-52.0); Hemoglobin 10.3 g/dl (14.0-18.0); Imm Gran Pct Auto 0.6 % (0.0-0.4); Lymphocytes Absolute Auto 1.1 X10*3/uL (1.2-4.9); Lymphocytes Percent Auto 6.5 % (20-40); Mean Corpuscular HGB Conc 33.8 g/dl (31.0-36.0); Mean Corpuscular Hemoglobin 31.9 pg (27.0-33.0); Mean Corpuscular Volume 94.4 fL (80.0-98.0); Mean Platelet Volume 11.1 fL (9.4-12.4); Monocytes Percent Auto 6.4 % (2-11); Neutrophils Absolute Auto 13.8 x10*3/uL (2.0-8.3); Neutrophils Percent Auto 85.1 % (45-73); Platelet Count 273 X10*3/uL (160-400); Red Blood Count 3.23 X10*6/uL (4.60-5.80); Red Cell Distribution Width 15.3 % (11.0-16.0); White Blood Count 16.2 X10*3/uL (4.8-10.8)
[2023-02-02 18:37] LABS: INTERNATIONAL NORM RATIO 1.5 (0.9-1.1); Prothrombin Time 17.3 SEC (10.0-13.1)
--- NOTE | 2023-02-02 18:46 | PC.NURSE ---
incontinence care provided
[2023-02-02 18:51] LABS: Alanine Aminotransferase 7 U/L (0-40); Albumin Level 3.2 g/dL (3.5-5.0); Alkaline Phosphatase 101 U/L (39-117); Anion Gap 12 (12-20); Aspartate Amino Transferase 13 U/L (5-37); Bilirubin Total 0.4 mg/dL (0.0-1.0); Blood Urea Nitrogen 12 mg/dL (9-16); Calcium 8.4 mg/dL (8.4-10.2); Carbon Dioxide 24 mmol/L (22-29); Chloride 109 mmol/L (96-108); Creatinine Clr Calc Pharmacy 47.9; Estimated Glomerular Filt Rate > 60; Glucose Random 132 mg/dL (60-115); Magnesium 1.6 mg/dL (1.6-2.6); Potassium 4.3 mmol/L (3.3-5.1); Sodium 141 mmol/L (135-145); Total Protein 5.5 g/dL (6.5-8.0)
[2023-02-02] MEDS: dilTIAZem HCL 50 MG/10 ML VIAL 10 MG IVPUSH (19:20)
[2023-02-02 19:31] LABS: Troponin-I High Sensitivity 119.9 ng/L (<3.5-35.0)
[2023-02-02] MEDS: LORazepam 2 MG/ML VIAL 1 MG IVPUSH (19:59)
[2023-02-02] MEDS: Metoprolol Tartrate 5 MG/5 ML VIAL IVPUSH (19:59)
--- NOTE | 2023-02-02 21:00 | PC.NURSE ---
late entry- this rn assumed care of pt @ 191. pt pulling off machine deicer element winder. HR 120s-130s pt medicated according to oct. pt placed back on machine deicer element winder. pt given ativan iv prior to CT scan.
--- NOTE | 2023-02-02 21:24 | PHA.MEDREC ---
Pharmacy Consult ? Medication Reconciliation Pharmacy has completed the medication reconciliation. Spoke to nurse Thornton at [facility] ([phone]) and had med list faxed to pharmacy
--- NOTE | 2023-02-02 21:27 | PM.IMHP ---
History of Present Illness Date of Service: 02/02/23 Attending physician on admission: Topher Jean Chief Complaint: ams 82-year-old male with history of AAA, interstitial lung disease, CAD with h/o NSTEMI 07/2021, ischemic cardiomyopathy, paroxysmal atrial fibrillation anticoagulated with Xarelto, hypertension, hypercholesterolemia, GERD history of multiple vertebral fractures following mechanical fall in 07/2019, severe unspecified dementia, and anxiety/depression?sent to the ED via EMS from [facility] for evaluation of increased confusion from baseline. noted to be in afib with rvr 160-220 given 15mg IV cardizem. On arrival, HR ranging 115- 140. Tachypneic to 26, bp stable. Patient altered, unable to give history. There is a leukocytosis of 16.2. Renal function baseline, electrolyte levels normal. Initial troponin 119.9, repeat pending. Urinalysis ordered but not collected. Head CT negative for any acute intracranial abnormality. Chest x-ray with low lung volumes and question of bronchopneumonia. In the ED, has been treated with 1 mg lorazepam, 10 mg IV diltiazem, 5 mg IV metoprolol, and 1 L IV NS. Heart rate has improved 110. Review of Systems Review of Systems: Yes Unobtainable due to mental condition and Unobtainable due to mental status [facility] Medical History Abdominal aortic aneurysm Acetabular fracture Anxiety and depression Compression fracture of L3 vertebra Compression fracture of L3 vertebra Corneal abrasion, left Coronary artery disease CVA (cerebral vascular accident) GERD (gastroesophageal reflux disease) Hypercholesterolemia Hypertension Interstitial lung disease Left rib fracture NSTEMI (non-ST elevated myocardial infarction) Paroxysmal A-fib Rotator cuff dysfunction Tubular adenoma of colon Ulnar neuropathy Vertebral fracture Family History Father Medical history unknown Mother Medical history unknown Surgical History History of appendectomy History of bilateral cataract extraction History of bursectomy History of hemorrhoidectomy S/P cardiac catheterization Social History Household Members: Unknown / Unable to assess Housing: House Do you presently have visiting nurse or other home services: No Alcohol intake: never Patient Tobacco Use Status: Never used Tobacco e-Cigarette/Vaping Use: Never Used Second Hand Smoke Exposure: No Advance Directives: Yes Advance Directives on File: Yes Advance Directives Date on File: 02/02/23 service: No Current occupational status: retired Cognitive needs: No Hearing needs: Yes Vision needs: Yes Meds Allergies Allergy/AdvReac Type Severity Reaction Status Date / Time No Known Allergies Allergy Verified 02/02/23 18:15 [No Known Allergies*] Active Medications: Current Medications Pharmacy Consult (Consult Rx Perform Med Rec) 1 each MISCELLANE ONCE PRN PRN Reason: Consult order Home Medications Medication Instructions Recorded Confirmed Last Taken Type cholecalciferol (vitamin D3) 25 25 mcg PO DAILY 10/19/22 02/02/23 10/18/22 History mcg (1,000 unit) tablet (Vitamin D3) terazosin 5 mg capsule 1 cap PO BEDTIME 10/19/22 02/02/23 10/18/22 History acetaminophen 325 mg tablet 650 mg PO Q4H PRN pain or fever 02/02/23 02/02/23 Unknown History acetaminophen 500 mg tablet 1,000 mg PO TID 02/02/23 02/02/23 Unknown History bisacodyl 10 mg rectal suppository 10 mg MD DAILY PRN Constipation 02/02/23 02/02/23 Unknown History docusate sodium 100 mg capsule 100 mg PO BID 02/02/23 02/02/23 Unknown History magnesium hydroxide 400 mg/5 mL 30 ml PO DAILY PRN Constipation 02/02/23 02/02/23 Unknown History oral suspension (Milk of Magnesia) naloxone 0.4 mg/mL injection 0.4 mg subcut Q3M PRN Opiate 02/02/23 02/02/23 Unknown History solution Reversal omeprazole 20 mg capsule,delayed 40 mg PO DAILY@0630 02/02/23 02/02/23 Unknown History release polyethylene glycol 3350 17 gram 17 g PO DAILY 02/02/23 02/02/23 Unknown History oral powder packet (Miralax) rivaroxaban 20 mg tablet (Xarelto) 20 mg PO DAILY@1700 02/02/23 02/02/23 Unknown History sennosides 8.6 mg tablet (senna) 17.2 mg PO BEDTIME PRN Constipation 02/02/23 02/02/23 Unknown History sodium phosphates 19 gram-7 118 ml MD DAILY PRN Constipation 02/02/23 02/02/23 Unknown History gram/118 mL enema (Fleet Enema) Physical Exam Vital Signs and Narrative: Vital Signs: Last Vital Signs Temp 97.6 F 02/02/23 18:12 Pulse 132 H 02/02/23 19:17 Resp 13 02/02/23 19:17 BP 148/67 H 02/02/23 19:17 Pulse Ox 93 02/02/23 19:17 O2 Del Method Room Air 02/02/23 19:17 BMI result Body Mass Index 21.7 Constitutional - Awake and Alert, No apparent distress. Smells of urine Eyes - PERRLA, EOMI Cardiovascular - S1S2, RRR, No edema Respiratory - Normal lung expansion, Normal respiratory effort, No respiratory distress, CTA bilaterally Gastrointestinal - NT / ND; +BS; No rebound or guarding Extremities - no calf tenderness bilaterally, no swelling Skin - Warm/Dry Neurological - Alert & oriented x3, unable to participate in CN exam, but PERRLA, and eyes appear to be tracking normally. 5/5 strength BUE and BLE Psychological - Appropriate affect Results Labs 02/02/23 18:18 02/02/23 18:18 Labs: Laboratory Results - last 24 hr 02/02/23 02/02/23 02/02/23 18:18 18:18 18:18 MCV 94.4 MCH 31.9 MCHC 33.8 RDW 15.3 Plt Count 273 MPV 11.1 Immature Gran % (Auto) 0.6 H Neut % (Auto) 85.1 H Lymph % (Auto) 6.5 L [place] % (Auto) 6.4 Eos % (Auto) 1.0 Baso % (Auto) 0.4 Lymph # (Auto) 1.1 L [place] # (Auto) 1.0 Eos # (Auto) 0.2 Baso # (Auto) 0.1 Abs Immat Gran (auto) 0.10 H Absolute Neuts (auto) 13.8 H Absolute Nucleated RBC 0.000 Nucleated RBC % (auto) 0.0 PT 17.3 H INR 1.5 H Anion Gap 12 Estim Creat Clear Calc 47.9 Estimated GFR > 60 Random Glucose 132 H Calcium 8.4 Magnesium 1.6 Total Bilirubin 0.4 AST 13 ALT 7 Alkaline Phosphatase 101 Troponin I High Sens Total Protein 5.5 L Albumin 3.2 L 02/02/23 18:18 MCV MCH MCHC RDW Plt Count MPV Immature Gran % (Auto) Neut % (Auto) Lymph % (Auto) [place] % (Auto) Eos % (Auto) Baso % (Auto) Lymph # (Auto) [place] # (Auto) Eos # (Auto) Baso # (Auto) Abs Immat Gran (auto) Absolute Neuts (auto) Absolute Nucleated RBC Nucleated RBC % (auto) PT INR Anion Gap Estim Creat Clear Calc Estimated GFR Random Glucose Calcium Magnesium Total Bilirubin AST ALT Alkaline Phosphatase Troponin I High Sens 119.9 H* D Total Protein Albumin Imaging Radiologist's Impressions: Impressions Chest X-Ray 02/02/23 18:40 IMPRESSION: Low lung volumes. Question bronchopneumonia. Head CT 02/02/23 20:43 IMPRESSION: No acute intracranial hemorrhage or territorial infarction. Chronic right basal ganglia/right frontal lobe infarct. Extensive chronic white matter microangiopathy and diffuse parenchymal volume loss. Assessment and Plan (1) Atrial fibrillation with RVR: Status: Acute (2) Acute metabolic encephalopathy: Status: Acute Plan 82-year-old male with history of AAA, interstitial lung disease, CAD with H/O does NSTEMI 07/2021, ischemic cardiomyopathy, paroxysmal atrial fibrillation anticoagulated with Xarelto hypertension, hypercholesterolemia, GERD history of multiple vertebral fractures admitted for Afib with RVR. # paroxysmal atrial fibrillation with RVR -initially HR 160-220. Improved 110 following 15 mg IV diltiazem, 10 mg IV diltiazem, and 5 mg IV Lopressor -initiate metoprolol 25 mg b.i.d. p.o. pending bedside swallow eval -continue Xarelto -update echocardiogram -cardiology consult -admit to telemetry # acute metabolic encephalopathy -has unspecified dementia at baseline, but with increased confusion from baseline noted by SNF -likely related to infection. See below -monitor mentation -keep NPO for now pending bedside swallow eval. Per SNF documentation, patient tolerates regular diet with regular texture and thin liquids # elevated troponin -initial troponin 119.9, repeat pending -likely demand related to AFib with RVR -EKG is nonischemic -patient is asymptomatic # possible UTI -Increased confusion from baseline, incontinent of urine, smells of urine -UA/UC pending, bladder scan and straight cath ordered -IV ceftriaxone ordered to treat empirically (and cover ?bronchopneumonia) -follow UC/BC # acute bronchopneumonia -lungs clear to auscultation, patient denies any complaints but is not the best historian -will cover empirically with IV ceftriaxone, doxycycline (initiated 02/02) # chronic low back pain related to compression fracture at L3 -continue tramadol p.r.n. # CAD/ischemic cardiomyopathy/HLD/AAA -continue Plavix, Xarelto.? Not on statin # interstitial lung disease -not on home inhalers DVT prophylaxis-on Xarelto Full code-per [facility] 11/20 Patient requires inpatient stay of at least 2 midnights for management of afib with rvr and probable UTI with acute metabolic encephalopathy Time Spent With Patient Time: Total time managing care of this patient today ____ minutes. Quality Stroke Does the patient have a stroke diagnosis?: No VTE Prior VTE?: No VTE Risk Level:: Medical - moderate - high VTE Device Contraindication: Treatment Not Indicated VTE Drug Contraindication: N/A - Med Ordered
--- NOTE | 2023-02-02 22:25 | MHC.EDTECH ---
Pt voided and had BM. Pt was cleaned up by myself and Ирина pbx technician. Pt tolerated well. SG
[2023-02-02 22:56] LABS: Appearance Urine Clear; Color Urine Yellow; Glucose Urine UA Negative (Negative); Leukocyte Esterase Urine Large (3+) (Negative); Nitrite Urine Positive (Negative); Specific Gravity - Urine 1.015 (1.005-1.025); UMIC TRIGGER UACC YES; Urine Blood Negative (Negative); Urine Ketones Negative (Negative); Urine Protein Negative (Neg-Trace)
[2023-02-02] MEDS: cefTRIAXone sodium 1 GM in 0.9 % Sodium Chloride 50 ML IV (22:56)
[2023-02-02 22:59] LABS: Bacteria Urine 4+ (None Seen); Hyaline Casts Urine 0-2 /LPF (0-2); RBC Urine 0-2 /HPF (0-2); Squamous Epithelial Cell Urine 0-2 /HPF (0-2); UACC Culture Trigger YES; WBC Urine 21-50 /HPF (0-5)
--- NOTE | 2023-02-02 23:00 | PC.NURSE ---
this rn and [employer] advanced operator maintainer placed galvez catheter. 16 yoruba 10ml balloon inflated. 200ml output after insertion. urine sample sent down to lab. blood work sent down to lab. 1:1 sitter initiated to assist with maintaining galvez and iv insertion
[2023-02-02 23:15] LABS: B Type Natriuretic Peptide 150 pg/mL (<100)
--- NOTE | 2023-02-02 23:25 | PC.NURSE ---
Critical trop 442.5 notified PAMELA Pena.
[2023-02-02 23:26] LABS: Troponin-I High Sensitivity 442.5 ng/L (<3.5-35.0)
--- NOTE | 2023-02-02 23:31 | PC.NURSE ---
discharge planner made this rn aware of critical reporting of repeat troponin of 442.5. this rn made hospitalist dr brewster aware of critical lab. per dr brewster no new orders
[2023-02-02] MEDS: 0.9 % Sodium Chloride Flush 3 ML SYRINGE IVFLUSH (23:44)
[2023-02-02] MEDS: Doxycycline Hyclate 100 MG in 0.9 % Sodium Chloride 250 ML 166.67 MG IV (23:44)
--- NOTE | 2023-02-03 | ECG_ITS ---
Test Reason : afib rvr Blood Pressure : / mmHG Vent. Rate : 094 BPM Atrial Rate : 094 BPM P-R Int : 208 ms QRS Dur : 084 ms QT Int : 388 ms P-R-T Axes : 018 -17 -52 degrees QTc Int : 485 ms Sinus rhythm with occasional Premature ventricular complexes and Premature atrial complexes T wave abnormality, consider lateral ischemia Abnormal ECG When compared with ECG of 02-FEB-2023 18:49, Premature atrial complexes are now Present T wave inversion now evident in Anterolateral leads Referred By: Misty Kerr Electronically Signed By:Andrew Hwang
[2023-02-03] MEDS: Enoxaparin Sodium 60 MG/0.6 ML SYRINGE SUBCUT ×3 (01:21→23:44)
--- NOTE | 2023-02-03 01:29 | PC.NURSE ---
zyprexa cancelled per dr brewster as pt is sleeping at this time.
[2023-02-03 02:16] VITALS: BMI 21.2
[2023-02-03] MEDS: OLANZapine 10 MG VIAL IM ×2 (03:20→21:57)
--- NOTE | 2023-02-03 03:33 | PC.NURSE ---
Addendum entered by Adrienne Pickett RN 02/03/23 06:45: Had 4 beats of Vtach. MD Jean is aware. NO further orders given. will continue to monitor. Original Note: Pt came from ED via stretcher. Very confused and screaming certain name,trying to pull out his Galvez. Incontinent with stool. Came in with a Galvez. Urine is yellow with cloudiness and sediments. Afib on monitor. HE on 120s. MD Jean was notified that pt is restless in bed and trying to pull out his galvez. Camera inside the room provided. Pt given IM Olanzapine-pending effectiveness.Foam dressing applied to left heel which is noted to be red and non blanchable.
[2023-02-03 04:00] VITALS: PULSE 101; RESP 20
[2023-02-03 06:34] LABS: MANUAL DIFF FLAG NO
[2023-02-03 06:40] LABS: Basophils Absolute Auto 0.1 X10*3/uL (0.0-0.2); Basophils Percent Auto 0.5 % (0-2); Eosinophils Absolute Auto 0.1 X10*3/uL (0.0-0.4); Eosinophils Percent Auto 1.1 % (0-4); Hematocrit 29.9 % (42.0-52.0); Hemoglobin 10.2 g/dl (14.0-18.0); Imm Gran Abs Auto 0.06 X10*3/uL (0.00-0.03); Imm Gran Pct Auto 0.5 % (0.0-0.4); Lymphocytes Absolute Auto 1.7 X10*3/uL (1.2-4.9); Lymphocytes Percent Auto 15.6 % (20-40); Mean Corpuscular HGB Conc 34.1 g/dl (31.0-36.0); Mean Corpuscular Volume 93.7 fL (80.0-98.0); Mean Platelet Volume 11.1 fL (9.4-12.4); Monocytes Percent Auto 9.2 % (2-11); Neutrophils Absolute Auto 8.1 x10*3/uL (2.0-8.3); Neutrophils Percent Auto 73.1 % (45-73); Platelet Count 278 X10*3/uL (160-400); Red Blood Count 3.19 X10*6/uL (4.60-5.80); Red Cell Distribution Width 15.4 % (11.0-16.0)
[2023-02-03 07:00] LABS: Anion Gap 11 (12-20); Blood Urea Nitrogen 11 mg/dL (9-16); Calcium 8.5 mg/dL (8.4-10.2); Carbon Dioxide 25 mmol/L (22-29); Chloride 109 mmol/L (96-108); Creatinine Clr Calc Pharmacy 54.9; Estimated Glomerular Filt Rate > 60; Glucose Random 110 mg/dL (60-115); Potassium 4.1 mmol/L (3.3-5.1); Sodium 141 mmol/L (135-145)
[2023-02-03 08:02] VITALS: BP 133/84; PULSE 101; RESP 20; TEMP 36.5; O2SAT 95
--- NOTE | 2023-02-03 08:33 | MHC.CM.PN ---
Patient has a diagnosis of Dementia; CM left a detailed message for Son/HCP/Denis @ [phone], addressing the IMM with him (original will be mailed certified mail to Denis and a copy has been placed on the chart). Patient comes to [facility] from [facility] and returning there is the tentative plan. CM has initiated and will follow for dc planning. HCP is on file. Patient has received bubl vax x5.
[2023-02-03] MEDS: 0.9 % Sodium Chloride Flush 3 ML SYRINGE IVFLUSH ×2 (08:58→21:58)
[2023-02-03 09:06] LABS: Magnesium 1.7 mg/dL (1.6-2.6)
[2023-02-03 09:27] LABS: Procalcitonin 0.06 ng/mL
--- NOTE | 2023-02-03 10:35 | MHC.SLORD ---
Speech Language Pathology Order Status: Pt declined offerings of food and liquids. Became combative with repeated requests. HoB reclined to 30 degrees, Pt resting soundly.
[2023-02-03 11:00] LABS: Troponin-I High Sensitivity 775.9 ng/L (<3.5-35.0)
[2023-02-03 11:03] VITALS: BP 137/62; PULSE 93; RESP 20; TEMP 37; O2SAT 97
--- NOTE | 2023-02-03 11:48 | P.CONCA_ITS ---
History of Present Illness History of Present Illness Date of Service: 02/03/23 Requesting physician: Misty Kerr Chief complaint: AMS, afib rvr Narrative: [age] year gentleman with known history of dementia presenting for change in mental status possibly due to urinary tract infection. Also noticed to be in AFib with RVR. He has elevated troponin levels on background of coronary disease and previous ischemic cardiomyopathy. Was on Plavix and Xarelto. Given elevated troponin he was started on Lovenox by the medicine team and Xarelto was had. Patient is demented and unable to give any history. He was barely responsive during physical examination. [facility] Past Medical History Medical History (Updated 02/03/23 @ 12:58 by Andrew Hwang MD) Abdominal aortic aneurysm Acetabular fracture Anxiety and depression Compression fracture of L3 vertebra Compression fracture of L3 vertebra Corneal abrasion, left Coronary artery disease CVA (cerebral vascular accident) GERD (gastroesophageal reflux disease) Hypercholesterolemia Hypertension Interstitial lung disease Left rib fracture NSTEMI (non-ST elevated myocardial infarction) Paroxysmal A-fib Rotator cuff dysfunction Tubular adenoma of colon Ulnar neuropathy Vertebral fracture Family History Family History Father Medical history unknown Mother Medical history unknown Surgical History Surgical History History of appendectomy History of bilateral cataract extraction History of bursectomy History of hemorrhoidectomy S/P cardiac catheterization Social History Social History Household Members: Unknown / Unable to assess Housing: Retirement Do you presently have visiting nurse or other home services: No Unable to assess alcohol history related to: Unable to respond Alcohol intake: never Patient Tobacco Use Status: Never used Tobacco e-Cigarette/Vaping Use: Never Used Second Hand Smoke Exposure: No Advance Directives Date on File: 02/02/23 service: No Current occupational status: retired Cognitive needs: No Hearing needs: Yes Vision needs: Yes Meds Allergies Allergy/AdvReac Type Severity Reaction Status Date / Time No Known Allergies Allergy Verified 02/02/23 18:15 [No Known Allergies*] Active Medications: Current Medications Acetaminophen (Acetaminophen 325 Mg Tablet) 650 mg PO Q6H PRN PRN Reason: Pain, Mild (Pain Scale 1-3) Bisacodyl (Bisacodyl 10 Mg Supp.Rect) 10 mg [place] DAILY PRN PRN Reason: Constipation Enoxaparin Sodium (Enoxaparin Sodium 60 Mg/0.6 Ml Syringe) 60 mg SUBCUT Q12H [facility] Last Admin: 02/03/23 01:21 Dose: 60 mg Folic Acid (Folic Acid 1 Mg Tablet) 1 mg PO DAILY [facility] Last Admin: 02/03/23 08:59 Dose: Not Given Ceftriaxone Sodium 1 gm/ (Sodium Chloride) 50 mls @ 100 mls/hr IV Q24H [facility] Last Infusion: 02/02/23 23:45 Dose: Infused Doxycycline Hyclate 100 mg/ (Sodium Chloride) 250 mls @ 166.67 mls/hr IV Q12H [facility] Last Infusion: 02/03/23 01:22 Dose: Infused Magnesium Hydroxide (Milk Of Magnesia 30 Ml Oral.Susp) 30 ml PO DAILY PRN PRN Reason: Constipation Naloxone HCl (Naloxone Hcl 0.4 Mg/Ml Vial) 0.4 mg SUBCUT Q3M PRN PRN Reason: Opiate Reversal Ondansetron HCl (Ondansetron Hcl 4 Mg/2 Ml Vial) 4 mg IVPUSH Q8H PRN PRN Reason: Nausea and Vomiting Pharmacy Consult (Consult Rx Perform Med Rec) 1 each MISCELLANE ONCE PRN PRN Reason: Consult order Senna (Sennosides 8.6 Mg Tablet) 17.2 mg PO BEDTIME PRN PRN Reason: Constipation Sodium Biphosphate/Sodium Phosphate (Sodium Phosphate,[place]-Dibasic 133 Ml Enema) 118 ml [place] DAILY PRN PRN Reason: Constipation Sodium Chloride (0.9 % Sodium Chloride Flush 3 Ml Syringe) 3 ml IVFLUSH QSHIFT [facility] Last Admin: 02/03/23 08:58 Dose: 3 ml Tramadol HCl (Tramadol Hcl 50 Mg Tablet) 50 mg PO TID PRN PRN Reason: Pain (Scale Score 4-6) Home Medications Medication Instructions Recorded Confirmed Last Taken Type cholecalciferol (vitamin D3) 25 25 mcg PO DAILY 10/19/22 02/02/23 10/18/22 History mcg (1,000 unit) tablet (Vitamin D3) terazosin 5 mg capsule 1 cap PO BEDTIME 10/19/22 02/02/23 10/18/22 History acetaminophen 325 mg tablet 650 mg PO Q4H PRN pain or fever 02/02/23 02/02/23 Unknown History acetaminophen 500 mg tablet 1,000 mg PO TID 02/02/23 02/02/23 Unknown History bisacodyl 10 mg rectal suppository 10 mg DC DAILY PRN Constipation 02/02/23 02/02/23 Unknown History docusate sodium 100 mg capsule 100 mg PO BID 02/02/23 02/02/23 Unknown History magnesium hydroxide 400 mg/5 mL 30 ml PO DAILY PRN Constipation 02/02/23 02/02/23 Unknown History oral suspension (Milk of Magnesia) naloxone 0.4 mg/mL injection 0.4 mg subcut Q3M PRN Opiate 02/02/23 02/02/23 Unknown History solution Reversal omeprazole 20 mg capsule,delayed 40 mg PO DAILY@0630 02/02/23 02/02/23 Unknown History release polyethylene glycol 3350 17 gram 17 g PO DAILY 02/02/23 02/02/23 Unknown History oral powder packet (Miralax) rivaroxaban 20 mg tablet (Xarelto) 20 mg PO DAILY@1700 02/02/23 02/02/23 Unknown History sennosides 8.6 mg tablet (senna) 17.2 mg PO BEDTIME PRN Constipation 02/02/23 02/02/23 Unknown History sodium phosphates 19 gram-7 118 ml DC DAILY PRN Constipation 02/02/23 02/02/23 Unknown History gram/118 mL enema (Fleet Enema) Physical Exam Vital Signs: Vital Signs: Last Vital Signs Temp 98.6 F 02/03/23 11:03 Pulse 93 02/03/23 11:03 Resp 20 02/03/23 11:03 BP 137/62 02/03/23 11:03 Pulse Ox 97 02/03/23 11:03 O2 Del Method Room Air 02/03/23 11:03 BMI result Body Mass Index 21.2 GENERAL APPEARANCE: in no acute distress, somnolent but arousable. NECK: no obvious jugular venous distention. SKIN: no suspicious lesions, warm and dry. HEART: no murmurs, regular rate and rhythm. LUNGS: clear to auscultation bilaterally. ABDOMEN: soft, nontender. EXTREMITIES: no edema. PERIPHERAL PULSES: equal. NEUROLOGIC: Sleepy but arousable. Not following commands. Objective Labs and Meds 02/03/23 06:18 02/03/23 06:18 Lab results: Laboratory Results - last 24 hr 02/02/23 02/02/23 02/02/23 18:18 18:18 18:18 WBC 16.2 H RBC 3.23 L Hgb 10.3 L Hct 30.5 L MCV 94.4 MCH 31.9 MCHC 33.8 RDW 15.3 Plt Count 273 MPV 11.1 Immature Gran % (Auto) 0.6 H Neut % (Auto) 85.1 H Lymph % (Auto) 6.5 L [place] % (Auto) 6.4 Eos % (Auto) 1.0 Baso % (Auto) 0.4 Lymph # (Auto) 1.1 L [place] # (Auto) 1.0 Eos # (Auto) 0.2 Baso # (Auto) 0.1 Abs Immat Gran (auto) 0.10 H Absolute Neuts (auto) 13.8 H Absolute Nucleated RBC 0.000 Nucleated RBC % (auto) 0.0 PT 17.3 H INR 1.5 H Sodium 141 Potassium 4.3 Chloride 109 H Carbon Dioxide 24 Anion Gap 12 BUN 12 Creatinine 1.07 Estim Creat Clear Calc 47.9 Estimated GFR > 60 Random Glucose 132 H Calcium 8.4 Magnesium 1.6 Total Bilirubin 0.4 AST 13 ALT 7 Alkaline Phosphatase 101 Troponin I High Sens B-Natriuretic Peptide Total Protein 5.5 L Albumin 3.2 L Procalcitonin Urine Color Urine Appearance Urine pH Ur Specific [place] Urine Protein Urine Glucose (UA) Urine Ketones Urine Blood Urine Nitrite Ur Leukocyte Esterase Urine RBC Urine WBC Ur Squamous Epith Cells Urine Bacteria Hyaline Casts 02/02/23 02/02/23 02/02/23 18:18 22:45 22:45 WBC RBC Hgb Hct MCV MCH MCHC RDW Plt Count MPV Immature Gran % (Auto) Neut % (Auto) Lymph % (Auto) [place] % (Auto) Eos % (Auto) Baso % (Auto) Lymph # (Auto) [place] # (Auto) Eos # (Auto) Baso # (Auto) Abs Immat Gran (auto) Absolute Neuts (auto) Absolute Nucleated RBC Nucleated RBC % (auto) PT INR Sodium Potassium Chloride Carbon Dioxide Anion Gap BUN Creatinine Estim Creat Clear Calc Estimated GFR Random Glucose Calcium Magnesium Total Bilirubin AST ALT Alkaline Phosphatase Troponin I High Sens 119.9 H* D 442.5 H* D B-Natriuretic Peptide 150 H Total Protein Albumin Procalcitonin Urine Color Urine Appearance Urine pH Ur Specific [place] Urine Protein Urine Glucose (UA) Urine Ketones Urine Blood Urine Nitrite Ur Leukocyte Esterase Urine RBC Urine WBC Ur Squamous Epith Cells Urine Bacteria Hyaline Casts 02/02/23 02/03/23 02/03/23 22:51 06:18 06:18 WBC 11.0 H RBC 3.19 L Hgb 10.2 L Hct 29.9 L MCV 93.7 MCH 32.0 MCHC 34.1 RDW 15.4 Plt Count 278 MPV 11.1 Immature Gran % (Auto) 0.5 H Neut % (Auto) 73.1 H Lymph % (Auto) 15.6 L [place] % (Auto) 9.2 Eos % (Auto) 1.1 Baso % (Auto) 0.5 Lymph # (Auto) 1.7 [place] # (Auto) 1.0 Eos # (Auto) 0.1 Baso # (Auto) 0.1 Abs Immat Gran (auto) 0.06 H Absolute Neuts (auto) 8.1 Absolute Nucleated RBC 0.000 Nucleated RBC % (auto) 0.0 PT INR Sodium 141 Potassium 4.1 Chloride 109 H Carbon Dioxide 25 Anion Gap 11 L BUN 11 Creatinine 0.91 Estim Creat Clear Calc 54.9 Estimated GFR > 60 Random Glucose 110 Calcium 8.5 Magnesium 1.7 Total Bilirubin AST ALT Alkaline Phosphatase Troponin I High Sens B-Natriuretic Peptide Total Protein Albumin Procalcitonin 0.06 Urine Color Yellow Urine Appearance Clear Urine pH 8.0 Ur Specific [place] 1.015 Urine Protein Negative Urine Glucose (UA) Negative Urine Ketones Negative Urine Blood Negative Urine Nitrite Positive H Ur Leukocyte Esterase Large (3+) H Urine RBC 0-2 Urine WBC 21-50 H Ur Squamous Epith Cells 0-2 Urine Bacteria 4+ Hyaline Casts 0-2 02/03/23 10:15 WBC RBC Hgb Hct MCV MCH MCHC RDW Plt Count MPV Immature Gran % (Auto) Neut % (Auto) Lymph % (Auto) [place] % (Auto) Eos % (Auto) Baso % (Auto) Lymph # (Auto) [place] # (Auto) Eos # (Auto) Baso # (Auto) Abs Immat Gran (auto) Absolute Neuts (auto) Absolute Nucleated RBC Nucleated RBC % (auto) PT INR Sodium Potassium Chloride Carbon Dioxide Anion Gap BUN Creatinine Estim Creat Clear Calc Estimated GFR Random Glucose Calcium Magnesium Total Bilirubin AST ALT Alkaline Phosphatase Troponin I High Sens 775.9 H* D B-Natriuretic Peptide Total Protein Albumin Procalcitonin Urine Color Urine Appearance Urine pH Ur Specific [place] Urine Protein Urine Glucose (UA) Urine Ketones Urine Blood Urine Nitrite Ur Leukocyte Esterase Urine RBC Urine WBC Ur Squamous Epith Cells Urine Bacteria Hyaline Casts Imaging Radiologist's impression: Impressions Chest X-Ray 02/02/23 18:40 IMPRESSION: Low lung volumes. Question bronchopneumonia. Head CT 02/02/23 20:43 IMPRESSION: No acute intracranial hemorrhage or territorial infarction. Chronic right basal ganglia/right frontal lobe infarct. Extensive chronic white matter microangiopathy and diffuse parenchymal volume loss. Assessment and Plan (1) Atrial fibrillation with rapid ventricular response: Status: Acute (2) NSTEMI (non-ST elevated myocardial infarction): Status: Acute Plan 82-year-old gentleman presenting for change in mental status due to urine tract infection on background of dementia. He has known history of coronary disease with previous cardiac catheterization in 2020 showing severe ostial circumflex stenosis. He had low normal ejection fraction previously with EF of 50 55%. Currently presenting for AFib with RVR with rise in biomarkers. I think troponin rises due to AFib with RVR and infection and this is likely a type 2 event. In any case he has advanced dementia and his management is medical regardless of whether this is acute coronary syndrome or not. Agree with Lovenox for 48 hours and then he can be resumed backon his Xarelto. Review Plavix as before. For atrial fibrillation recommend 25 mg 3 times a day of metoprolol. Thank you for allowing me to participate in the care of your patient. Please feel free to contact me if you have any questions. Time Spent With Patient Time: Total time managing care of this patient today ____ minutes. Procedures Date of Service Date of Service: 02/03/23
[2023-02-03] MEDS: Doxycycline Hyclate 100 MG in 0.9 % Sodium Chloride 250 ML 166.7 MG IV ×2 (12:17→23:43)
--- NOTE | 2023-02-03 13:53 | P.PNIM_ITS ---
Subjective Subjective Date of Service: 02/03/23 Interval History: converted to NSR around 3am unable to obtain ROS due to dementia Review of Systems Review of Systems: Yes Unobtainable due to mental status Physical Exam Vital Signs: Vital Signs: Last Vital Signs Temp 98.6 F 02/03/23 11:03 Pulse 93 02/03/23 11:03 Resp 20 02/03/23 11:03 BP 137/62 02/03/23 11:03 Pulse Ox 97 02/03/23 11:03 O2 Del Method Room Air 02/03/23 11:03 BMI result Body Mass Index 21.2 Gen: in no acute distress HEENT: sclera anicteric, moist mucus membranes Neck: supple Lungs: clear to auscultation bilaterally Heart: regular rate and rhythm, no murmurs Abd: soft, non-tender, non-distended Ext: no edema Skin: warm/well-perfused Neuro: alert, disoriented, moving all extremities Psych: impaired insight Objective Data Active Medications Acetaminophen (Acetaminophen 325 Mg Tablet) 650 mg PO Q6H PRN PRN Reason: Pain, Mild (Pain Scale 1-3) Bisacodyl (Bisacodyl 10 Mg Supp.Rect) 10 mg [place] DAILY PRN PRN Reason: Constipation Enoxaparin Sodium (Enoxaparin Sodium 60 Mg/0.6 Ml Syringe) 60 mg SUBCUT Q12H [facility] Last Admin: 02/03/23 12:18 Dose: 60 mg Documented By: ELIZABETH Folic Acid (Folic Acid 1 Mg Tablet) 1 mg PO DAILY [facility] Last Admin: 02/03/23 08:59 Dose: Not Given Documented By: ELIZABETH Non-Admin Reason: NPO Ceftriaxone Sodium 1 gm/ (Sodium Chloride) 50 mls @ 100 mls/hr IV Q24H [facility] Last Infusion: 02/02/23 23:45 Dose: 0 mls/hr Documented By: HAFSA Doxycycline Hyclate 100 mg/ (Sodium Chloride) 250 mls @ 166.67 mls/hr IV Q12H [facility] Last Admin: 02/03/23 12:17 Dose: 166.7 mls/hr Documented By: ELIZABETH Magnesium Hydroxide (Milk Of Magnesia 30 Ml Oral.Susp) 30 ml PO DAILY PRN PRN Reason: Constipation Metoprolol Tartrate (Metoprolol Tartrate 25 Mg Tablet) 25 mg PO TID [facility]; Protocol Naloxone HCl (Naloxone Hcl 0.4 Mg/Ml Vial) 0.4 mg SUBCUT Q3M PRN PRN Reason: Opiate Reversal Ondansetron HCl (Ondansetron Hcl 4 Mg/2 Ml Vial) 4 mg IVPUSH Q8H PRN PRN Reason: Nausea and Vomiting Pharmacy Consult (Consult Rx Perform Med Rec) 1 each MISCELLANE ONCE PRN PRN Reason: Consult order Senna (Sennosides 8.6 Mg Tablet) 17.2 mg PO BEDTIME PRN PRN Reason: Constipation Sodium Biphosphate/Sodium Phosphate (Sodium Phosphate,[place]-Dibasic 133 Ml Enema) 118 ml [place] DAILY PRN PRN Reason: Constipation Sodium Chloride (0.9 % Sodium Chloride Flush 3 Ml Syringe) 3 ml IVFLUSH QSHIFT [facility] Last Admin: 02/03/23 08:58 Dose: 3 ml Documented By: ELIZABETH Tramadol HCl (Tramadol Hcl 50 Mg Tablet) 50 mg PO TID PRN PRN Reason: Pain (Scale Score 4-6) Labs 02/03/23 06:18 02/03/23 06:18 Labs: Laboratory Results - last 24 hr 02/02/23 02/02/23 02/02/23 18:18 18:18 18:18 MCV 94.4 MCH 31.9 MCHC 33.8 RDW 15.3 Plt Count 273 MPV 11.1 Immature Gran % (Auto) 0.6 H Neut % (Auto) 85.1 H Lymph % (Auto) 6.5 L [place] % (Auto) 6.4 Eos % (Auto) 1.0 Baso % (Auto) 0.4 Lymph # (Auto) 1.1 L [place] # (Auto) 1.0 Eos # (Auto) 0.2 Baso # (Auto) 0.1 Abs Immat Gran (auto) 0.10 H Absolute Neuts (auto) 13.8 H Absolute Nucleated RBC 0.000 Nucleated RBC % (auto) 0.0 PT 17.3 H INR 1.5 H Anion Gap 12 Estim Creat Clear Calc 47.9 Estimated GFR > 60 Random Glucose 132 H Calcium 8.4 Magnesium 1.6 Total Bilirubin 0.4 AST 13 ALT 7 Alkaline Phosphatase 101 Troponin I High Sens B-Natriuretic Peptide Total Protein 5.5 L Albumin 3.2 L Procalcitonin Urine Color Urine Appearance Urine pH Ur Specific [place] Urine Protein Urine Glucose (UA) Urine Ketones Urine Blood Urine Nitrite Ur Leukocyte Esterase Urine RBC Urine WBC Ur Squamous Epith Cells Urine Bacteria Hyaline Casts 02/02/23 02/02/23 02/02/23 18:18 22:45 22:45 MCV MCH MCHC RDW Plt Count MPV Immature Gran % (Auto) Neut % (Auto) Lymph % (Auto) [place] % (Auto) Eos % (Auto) Baso % (Auto) Lymph # (Auto) [place] # (Auto) Eos # (Auto) Baso # (Auto) Abs Immat Gran (auto) Absolute Neuts (auto) Absolute Nucleated RBC Nucleated RBC % (auto) PT INR Anion Gap Estim Creat Clear Calc Estimated GFR Random Glucose Calcium Magnesium Total Bilirubin AST ALT Alkaline Phosphatase Troponin I High Sens 119.9 H* D 442.5 H* D B-Natriuretic Peptide 150 H Total Protein Albumin Procalcitonin Urine Color Urine Appearance Urine pH Ur Specific [place] Urine Protein Urine Glucose (UA) Urine Ketones Urine Blood Urine Nitrite Ur Leukocyte Esterase Urine RBC Urine WBC Ur Squamous Epith Cells Urine Bacteria Hyaline Casts 02/02/23 02/03/23 02/03/23 22:51 06:18 06:18 MCV 93.7 MCH 32.0 MCHC 34.1 RDW 15.4 Plt Count 278 MPV 11.1 Immature Gran % (Auto) 0.5 H Neut % (Auto) 73.1 H Lymph % (Auto) 15.6 L [place] % (Auto) 9.2 Eos % (Auto) 1.1 Baso % (Auto) 0.5 Lymph # (Auto) 1.7 [place] # (Auto) 1.0 Eos # (Auto) 0.1 Baso # (Auto) 0.1 Abs Immat Gran (auto) 0.06 H Absolute Neuts (auto) 8.1 Absolute Nucleated RBC 0.000 Nucleated RBC % (auto) 0.0 PT INR Anion Gap 11 L Estim Creat Clear Calc 54.9 Estimated GFR > 60 Random Glucose 110 Calcium 8.5 Magnesium 1.7 Total Bilirubin AST ALT Alkaline Phosphatase Troponin I High Sens B-Natriuretic Peptide Total Protein Albumin Procalcitonin 0.06 Urine Color Yellow Urine Appearance Clear Urine pH 8.0 Ur Specific [place] 1.015 Urine Protein Negative Urine Glucose (UA) Negative Urine Ketones Negative Urine Blood Negative Urine Nitrite Positive H Ur Leukocyte Esterase Large (3+) H Urine RBC 0-2 Urine WBC 21-50 H Ur Squamous Epith Cells 0-2 Urine Bacteria 4+ Hyaline Casts 0-2 02/03/23 10:15 MCV MCH MCHC RDW Plt Count MPV Immature Gran % (Auto) Neut % (Auto) Lymph % (Auto) [place] % (Auto) Eos % (Auto) Baso % (Auto) Lymph # (Auto) [place] # (Auto) Eos # (Auto) Baso # (Auto) Abs Immat Gran (auto) Absolute Neuts (auto) Absolute Nucleated RBC Nucleated RBC % (auto) PT INR Anion Gap Estim Creat Clear Calc Estimated GFR Random Glucose Calcium Magnesium Total Bilirubin AST ALT Alkaline Phosphatase Troponin I High Sens 775.9 H* D B-Natriuretic Peptide Total Protein Albumin Procalcitonin Urine Color Urine Appearance Urine pH Ur Specific [place] Urine Protein Urine Glucose (UA) Urine Ketones Urine Blood Urine Nitrite Ur Leukocyte Esterase Urine RBC Urine WBC Ur Squamous Epith Cells Urine Bacteria Hyaline Casts Microbiology Microbiology Results: Microbiology 02/02/23 23:00 Urine Culture - Preliminary Urine Catheterized - [place] Catheter Culture too young to evaluate. Assessment and Plan (1) Atrial fibrillation with rapid ventricular response: Status: Acute Plan d#2 82yo M long-term resident of [facility] with AAA, ILD, CAD with hx NSTEMI 2020, ischemic cardiomyopathy, pAF on Xarelto, HTN, HLD, GERD, vertebral fractures admitted due to AF/RVR # paroxysmal AF with RVR - initially HR 160-220.? Improved to 110 following 15 mg IV diltiazem, 10 mg IV diltiazem, and 5 mg IV Lopressor - converted to NSR overnight, start metoprolol 25 mg q8h per Cardiology - TTE pending - on enoxaparin for NSTEMI, change back to Xarelto after 48h # NSTEMI - likely demand from AF vs infection - per Cardiology, medical management with 48h of therapeutic enoxaparin - TTE pending - b-jose as above; also clopidogrel + statin # acute encephalopathy due to UTI versus possible pneumonia - NPO pending GEOLOGICAL E LOGGER evaluation - ceftriaxone d#2, doxycycline d#2, CT chest, follow UCx + BCx, check RVP - WBCs improved # chronic low back pain related to compression fracture at L3 -continue tramadol prn # VTE ppx: UFH # dispo: eventual return to LTC In my clinical judgment, the patient requires continued inpatient hospitalization for the following reasons: NSTEMI med mgmt, IV ABX Time Spent With Patient Time: Total time managing care of this patient today __45__ minutes. Quality Stroke Does the patient have a stroke diagnosis?: No VTE Prior VTE?: No VTE Risk Level:: Medical - moderate - high VTE Device Contraindication: Treatment Not Indicated VTE Drug Contraindication: N/A - Med Ordered
[2023-02-03 15:24] VITALS: BP 146/62; PULSE 101; RESP 18; TEMP 36.6; O2SAT 97
[2023-02-03] MEDS: Clopidogrel Bisulfate 75 MG TABLET PO (15:24)
[2023-02-03] MEDS: Metoprolol Tartrate 25 MG TABLET PO ×2 (15:24→21:57)
[2023-02-03 20:00] VITALS: BP 108/58; PULSE 75; RESP 16; TEMP 37.8; O2SAT 95
[2023-02-03] MEDS: cefTRIAXone sodium 1 GM in 0.9 % Sodium Chloride 50 ML IV (21:56)
[2023-02-03] MEDS: Atorvastatin Calcium 40 MG TABLET PO (21:57)
[2023-02-03 23:53] VITALS: BP 150/70; PULSE 88; RESP 19; TEMP 36.9; O2SAT 97
[2023-02-04 03:22] VITALS: PULSE 105; RESP 18; TEMP 37; O2SAT 94
--- NOTE | 2023-02-04 05:17 | PC.NURSE ---
Pt is agitated, confused, unconsolable, combative to staff, cursing, refusing care and fidgeting as attempting to pull his galvez, Dr. Jean was notified, Zyprexa 10 mg IM was ordered, med given, pt became sleepy after and slept till 3a, incont of formed BM3x, assumed care.
[2023-02-04 06:55] VITALS: BP 111/68; PULSE 86; RESP 20; TEMP 37.2; O2SAT 96
[2023-02-04 08:37] LABS: Hematocrit 33.1 % (42.0-52.0); Hemoglobin 11.1 g/dl (14.0-18.0); Mean Corpuscular HGB Conc 33.5 g/dl (31.0-36.0); Mean Corpuscular Hemoglobin 31.7 pg (27.0-33.0); Mean Corpuscular Volume 94.6 fL (80.0-98.0); Mean Platelet Volume 11.5 fL (9.4-12.4); Platelet Count 295 X10*3/uL (160-400); Red Cell Distribution Width 15.4 % (11.0-16.0); White Blood Count 10.7 X10*3/uL (4.8-10.8)
[2023-02-04 09:02] LABS: Anion Gap 14 (12-20); Blood Urea Nitrogen 12 mg/dL (9-16); Calcium 8.8 mg/dL (8.4-10.2); Carbon Dioxide 25 mmol/L (22-29); Chloride 110 mmol/L (96-108); Creatinine Clr Calc Pharmacy 47.2; Estimated Glomerular Filt Rate > 60; Glucose Random 98 mg/dL (60-115); Potassium 3.8 mmol/L (3.3-5.1); Sodium 145 mmol/L (135-145)
[2023-02-04] MEDS: Folic Acid 1 MG TABLET PO (09:21)
[2023-02-04] MEDS: Metoprolol Tartrate 25 MG TABLET PO ×3 (09:21→21:23)
[2023-02-04] MEDS: 0.9 % Sodium Chloride Flush 3 ML SYRINGE IVFLUSH ×2 (09:21→15:24)
[2023-02-04] MEDS: Clopidogrel Bisulfate 75 MG TABLET PO (09:22)
[2023-02-04] MEDS: Doxycycline Hyclate 100 MG in 0.9 % Sodium Chloride 250 ML 166.7 MG IV (09:22)
[2023-02-04 11:27] VITALS: BP 129/56; PULSE 81; RESP 20; TEMP 36.4; O2SAT 97
[2023-02-04] MEDS: Enoxaparin Sodium 60 MG/0.6 ML SYRINGE SUBCUT ×2 (11:27→22:50)
--- NOTE | 2023-02-04 11:34 | MHC.SL.SWA ---
Speech Pathologist Impression: Oral phase dysphagia Risk of Aspiration Due to: Poor PO Intake Reduced Cognition Dysphasia Diet Status: UPGRADE Liquid Consistency and Strategies for Safe Swallow: Liquid Intake Recommendation: Thin Liquid Intake Strategies: No Straws Liquids by Teaspoon Only Solid Food Consistency: Dietary Recommendations: Pureed (NDD1) Oral Medication Intake: Crushed with Puree Please contact the pharmacy regarding appropriate crushable or liquid drug formulations that are available whenever modified delivery is recommended. Compensatory Strategies and Precautions to be Taken for Safe Swallow: Sitting Upright (90 deg) No Straw Liquids from Spoon Small Bites and Sips Alternate Liquids/Solids Oral Check Avoid Specific Foods Supervision While Eating and Drinking for Safe Swallow: Total Assistance (1:1) Recommendation for Speech: Inpatient Speech Therapy Comment: Recommend UPGRADE to PUREE solids (NDD1), THIN liquids (TEASPOON ONLY), and pills CRUSHED in PUREE. Pt requires 1-1 assist at this time d/t cogition, recommended liquid administration, to monitor for s/s of aspiration, and to assist with positioning (sitting upright, neutral head/neck position). [facility], pt's baseline is regular solids and thin liquids. JR. SYSTEMS ADMINISTRATOR to continue to follow to upgrade diet if warranted. Pt's board updated w/ current recommendations. RN, RD, and MD notified via [email or web address]. Linderman Machine Operator Clinican/Clinical Fellow: No Supervisory Statement: I have reviewed and agree with the student/clinical fellow's documentation: No Speech Language Pathologist: Shazia Almonte M.A., JR. SYSTEMS ADMINISTRATOR
--- NOTE | 2023-02-04 11:39 | MHC.CM.PN ---
Per ROUNDS discussion, Sitter will be dc'd today. Plan is to return to LTC @ [facility]. CM will follow.
[2023-02-04 11:58] VITALS: BMI 21.2
--- NOTE | 2023-02-04 12:05 | MHC.CLN ---
RE: CONSULT PT TRIGGERS FOR 21% SIGNIFICANT WT LOSS IN APPROX 1 YEAR TIMEFRAME WT LOSS FROM REVIEW OF PAST WT HX HOWEVER ACCURATE TIME FRAME OF WT LOSS UNKNOWN PT WITH INCREASED NUTRITION RISK R/T WT LOSS, LOW ANALIA, AND STAGE 1 PI L HEEL PT IS CONFUSED AND SCREAMS OUT AT TIMES DIET RX: 2GM NA PUREED -APPROPRIATE CAN LIBERALIZE R/T ADVANCED AGE RECOMMEND ADDING ENSURE BID TO INCREASE KCALS SUPP TO PROVIDE 700KCALS, 40G PROTEIN WITH 100% ACCEPTANCE MONITOR PO INTAKE CLOSELY SEE ALSO FULL CLINICAL NUTRITION ASSESSMENT
--- NOTE | 2023-02-04 12:41 | HO.PM.IMPN ---
Subjective Subjective Date of Service: 02/04/23 Interval History: remains in ROS more awake today however, due to dementia, unable to obtain ROS Review of Systems Review of Systems: Yes Unobtainable due to mental status Physical Exam Vital Signs: Vital Signs: Last Vital Signs Temp 97.5 F 02/04/23 11:27 Pulse 81 02/04/23 11:27 Resp 20 02/04/23 11:27 BP 129/56 L 02/04/23 11:27 Pulse Ox 97 02/04/23 11:27 O2 Del Method Room Air 02/04/23 11:27 BMI result Body Mass Index 21.2 Gen: in no acute distress HEENT: sclera anicteric, moist mucus membranes Neck: supple Lungs: clear to auscultation bilaterally Heart: regular rate and rhythm, no murmurs Abd: soft, non-tender, non-distended Ext: no edema Skin: warm/well-perfused Neuro: alert, disoriented, moving all extremities Psych: impaired insight Objective Data Active Medications Acetaminophen (Acetaminophen 325 Mg Tablet) 650 mg PO Q6H PRN PRN Reason: Pain, Mild (Pain Scale 1-3) Atorvastatin Calcium (Atorvastatin Calcium 40 Mg Tablet) 40 mg PO BEDTIME [facility] Last Admin: 02/03/23 21:57 Dose: 40 mg Documented By: JENN Bisacodyl (Bisacodyl 10 Mg Supp.Rect) 10 mg MA DAILY PRN PRN Reason: Constipation Clopidogrel Bisulfate (Clopidogrel Bisulfate 75 Mg Tablet) 75 mg PO DAILY [facility] Last Admin: 02/04/23 09:22 Dose: 75 mg Documented By: SATURNINO Enoxaparin Sodium (Enoxaparin Sodium 60 Mg/0.6 Ml Syringe) 60 mg SUBCUT Q12H [facility] Last Admin: 02/04/23 11:27 Dose: 60 mg Documented By: SATURNINO Folic Acid (Folic Acid 1 Mg Tablet) 1 mg PO DAILY [facility] Last Admin: 02/04/23 09:21 Dose: 1 mg Documented By: SATURNINO Ceftriaxone Sodium 1 gm/ (Sodium Chloride) 50 mls @ 100 mls/hr IV Q24H [facility] Last Infusion: 02/03/23 23:40 Dose: 0 mls/hr Documented By: JENN Doxycycline Hyclate 100 mg/ (Sodium Chloride) 250 mls @ 166.67 mls/hr IV Q12H [facility] Last Infusion: 02/04/23 11:28 Dose: 0 mls/hr Documented By: SATURNINO Magnesium Hydroxide (Milk Of Magnesia 30 Ml Oral.Susp) 30 ml PO DAILY PRN PRN Reason: Constipation Metoprolol Tartrate (Metoprolol Tartrate 25 Mg Tablet) 25 mg PO TID [facility]; Protocol Last Admin: 02/04/23 09:21 Dose: 25 mg Documented By: SATURNINO Naloxone HCl (Naloxone Hcl 0.4 Mg/Ml Vial) 0.4 mg SUBCUT Q3M PRN PRN Reason: Opiate Reversal Ondansetron HCl (Ondansetron Hcl 4 Mg/2 Ml Vial) 4 mg IVPUSH Q8H PRN PRN Reason: Nausea and Vomiting Pharmacy Consult (Consult Rx Perform Med Rec) 1 each MISCELLANE ONCE PRN PRN Reason: Consult order Senna (Sennosides 8.6 Mg Tablet) 17.2 mg PO BEDTIME PRN PRN Reason: Constipation Sodium Biphosphate/Sodium Phosphate (Sodium Phosphate,Summers-Dibasic 133 Ml Enema) 118 ml MA DAILY PRN PRN Reason: Constipation Sodium Chloride (0.9 % Sodium Chloride Flush 3 Ml Syringe) 3 ml IVFLUSH QSHIFT [facility] Last Admin: 02/04/23 09:21 Dose: 3 ml Documented By: SATURNINO Tramadol HCl (Tramadol Hcl 50 Mg Tablet) 50 mg PO TID PRN PRN Reason: Pain (Scale Score 4-6) Labs 02/04/23 08:04 02/04/23 08:04 Labs: Laboratory Results - last 24 hr 02/04/23 02/04/23 08:04 08:04 MCV 94.6 MCH 31.7 MCHC 33.5 RDW 15.4 Plt Count 295 MPV 11.5 Absolute Nucleated RBC 0.000 Nucleated RBC % (auto) 0.0 Anion Gap 14 Estim Creat Clear Calc 47.2 Estimated GFR > 60 Random Glucose 98 Calcium 8.[address] 02/03/23 09:14 IMPRESSION: Limited exam due to respiratory motion. Probable mild interstitial lung disease. No evidence of pneumonia. Fleischner guidelines were followed. Microbiology Microbiology Results: Microbiology 02/02/23 23:00 Urine Culture - Preliminary Urine Catheterized - Sierra Catheter Gram negative vannessa 02/02/23 22:45 Blood Culture - Preliminary Blood - Venous No growth after 24 hours. 02/02/23 22:45 Blood Culture - Preliminary Blood - Venous No growth after 24 hours. Assessment and Plan (1) Atrial fibrillation with rapid ventricular response: Status: Acute Plan d#3 82yo M long-term resident of [facility] with AAA, ILD, CAD with hx NSTEMI 2020, ischemic cardiomyopathy, pAF on Xarelto, HTN, HLD, GERD, vertebral fractures admitted due to AF/RVR # paroxysmal AF with RVR - initially HR 160-220.? Improved to 110 following 15 mg IV diltiazem, 10 mg IV diltiazem, and 5 mg IV Lopressor - converted to NSR 02/03/23 around 3am, started metoprolol 25 mg q8h per Cardiology and remains in NSR with freq PACs - TTE pending - on 48h of therapeutic enoxaparin for NSTEMI, change back to Xarelto tomorrow # NSTEMI - likely demand from AF vs infection - per Cardiology, medical management with 48h of therapeutic enoxaparin, ends tonight - TTE pending - b-jose as above; also clopidogrel + statin # acute encephalopathy due to UTI - OVERWEAVER evaluation: start NDD1 solids, thin liquids - ceftriaxone d#3, follow UCx- growing GNR - WBCs improved - no evidence of PNA; d/c doxy; RVP pending # chronic low back pain related to compression fracture at L3 -continue tramadol prn # VTE ppx: enoxaparin -> rivaroxaban # dispo: eventual return to LTC In my clinical judgment, the patient requires continued inpatient hospitalization for the following reasons: NSTEMI med mgmt, IV ABX Time Spent With Patient Time: Total time managing care of this patient today __40__ minutes. Quality Stroke Does the patient have a stroke diagnosis?: No VTE Prior VTE?: No VTE Risk Level:: Medical - moderate - high VTE Device Contraindication: Treatment Not Indicated VTE Drug Contraindication: N/A - Med Ordered
--- NOTE | 2023-02-04 13:48 | PC.NURSE ---
leonor dcd at 1130. DTV #[id number]. [place] cath placed on pt.
[2023-02-04 13:51] LABS: Adenovirus PCR Not Detected (Not Detect.); Bordetella parapertussis PCR Not Detected (Not Detect.); Bordetella pertussis PCR Not Detected (Not Detect.); Chlamydia pneumoniae PCR Not Detected (Not Detect.); Coronavirus 229E PCR Not Detected (Not Detect.); Coronavirus HKU1 PCR Not Detected (Not Detect.); Coronavirus NL63 PCR Not Detected (Not Detect.); Coronavirus OC43 PCR Not Detected (Not Detect.); Human metapneumovirus PCR Not Detected (Not Detect.); Influenza A PCR Not Detected (Not Detect.); Influenza B PCR Not Detected (Not Detect.); Mycoplasma pneumoniae PCR Not Detected (Not Detect.); Parainfluenza 1 PCR Not Detected (Not Detect.); Parainfluenza 2 PCR Not Detected (Not Detect.); Parainfluenza 3 PCR Not Detected (Not Detect.); Parainfluenza 4 PCR Not Detected (Not Detect.); RSV PCR Not Detected (Not Detect.); Rhino/Enterovirus PCR Not Detected (Not Detect.); SARS-CoV-2 PCR Not Detected (Not Detect.)
[2023-02-04 15:28] VITALS: BP 124/70; PULSE 98; RESP 18; TEMP 36.3; O2SAT 95
[2023-02-04 19:05] VITALS: BP 113/55; PULSE 100; RESP 20; TEMP 36.2; O2SAT 95
[2023-02-04] MEDS: Atorvastatin Calcium 40 MG TABLET PO (21:23)
[2023-02-04] MEDS: cefTRIAXone sodium 1 GM in 0.9 % Sodium Chloride 50 ML IV (21:24)
[2023-02-04 23:40] VITALS: BP 121/55; PULSE 76; RESP 16; TEMP 36.9; O2SAT 96
[2023-02-05] MEDS: 0.9 % Sodium Chloride Flush 3 ML SYRINGE IVFLUSH ×2 (00:40→09:36)
[2023-02-05 04:00] VITALS: BP 137/64; PULSE 76; RESP 18; TEMP 36.5; O2SAT 96
[2023-02-05 06:28] LABS: Hemoglobin 10.3 g/dl (14.0-18.0); Mean Corpuscular HGB Conc 33.2 g/dl (31.0-36.0); Mean Corpuscular Hemoglobin 31.8 pg (27.0-33.0); Mean Corpuscular Volume 95.7 fL (80.0-98.0); Mean Platelet Volume 11.7 fL (9.4-12.4); Platelet Count 271 X10*3/uL (160-400); Red Blood Count 3.24 X10*6/uL (4.60-5.80); Red Cell Distribution Width 15.5 % (11.0-16.0); White Blood Count 9.8 X10*3/uL (4.8-10.8)
[2023-02-05 06:41] LABS: Anion Gap 14 (12-20); Blood Urea Nitrogen 17 mg/dL (9-16); Calcium 8.6 mg/dL (8.4-10.2); Carbon Dioxide 21 mmol/L (22-29); Chloride 113 mmol/L (96-108); Creatinine Clr Calc Pharmacy 53.2; Estimated Glomerular Filt Rate > 60; Glucose Random 100 mg/dL (60-115); Magnesium 1.9 mg/dL (1.6-2.6); Potassium 3.8 mmol/L (3.3-5.1); Sodium 144 mmol/L (135-145)
[2023-02-05 07:37] VITALS: BP 117/55; PULSE 77; RESP 20; TEMP 36.9; O2SAT 96
[2023-02-05] MEDS: Clopidogrel Bisulfate 75 MG TABLET PO (09:36)
[2023-02-05] MEDS: Metoprolol Tartrate 25 MG TABLET PO (09:36)
[2023-02-05] MEDS: Folic Acid 1 MG TABLET PO (09:36)
[2023-02-05] MEDS: Rivaroxaban 20 MG TABLET PO (09:36)
[2023-02-05] MEDS: Acetaminophen 325 MG TABLET 650 MG PO (09:37)
[2023-02-05 11:34] VITALS: BP 110/55; PULSE 83; RESP 20; TEMP 37.1; O2SAT 98
--- NOTE | 2023-02-05 12:04 | PM.DS ---
DS: Providers Provider Date of Service: 02/05/23 Date of admission: 02/02/23 21:40 Date of discharge: 02/05/23 Primary care physician: Cole Pete MD Consults: 02/02/23 22:09 Consult to Cardiology Routine Consulting Provider: [facility] Reason for consultation: afib rvr Has provider been notified: Yes Attending physician on discharge: Ashvin Chiang Discharging clinician: Vale Sapmson DS: Diagnosis Discharge Diagnosis (1) Atrial fibrillation with rapid ventricular response: Status: Acute DS: Summary Hospital Course Hospital Course: From H&P on day of admission 82-year-old male with history of AAA, interstitial lung disease, CAD with h/o NSTEMI 07/2021, ischemic cardiomyopathy, paroxysmal atrial fibrillation anticoagulated with Xarelto, hypertension, hypercholesterolemia, GERD history of multiple vertebral fractures following mechanical fall in 07/2019, severe unspecified dementia, and anxiety/depression?sent to the ED via EMS from [facility] for evaluation of increased confusion from baseline. noted to be in afib with rvr 160-220 given 15mg IV cardizem. On arrival, HR ranging 115- 140. Tachypneic to 26, bp stable.? Patient altered, unable to give history.? There is a leukocytosis of 16.2.? Renal function baseline, electrolyte levels normal.? Initial troponin 119.9, repeat pending.? Urinalysis ordered but not collected.? Head CT negative for any acute intracranial abnormality.? Chest x-ray with low lung volumes and question of bronchopneumonia.? In the ED, has been treated with 1 mg lorazepam, 10 mg IV diltiazem, 5 mg IV metoprolol, and 1 L IV NS.? Heart rate has improved 110. 82yo M long-term resident of [facility] with AAA, ILD, CAD with hx NSTEMI 2020, ischemic cardiomyopathy, pAF on Xarelto, HTN, HLD, GERD, vertebral fractures admitted due to AF/RVR paroxysmal AF with RVR. initially HR 160-220.? Improved to 110 following 15 mg IV diltiazem, 10 mg IV diltiazem, and 5 mg IV Lopressor. converted to NSR 02/03/23 around 3am, started metoprolol 25 mg q8h per Cardiology and remains in NSR with frequent PACs. treated with therapeutic lovenox for NSTEMI, baseline xarelto resumed 02/05 NSTEMI - likely demand from AF vs infection. per Cardiology, medical management treated with 48h of therapeutic enoxaparin, back on baseline xarelto. b-jose as above; also clopidogrel + statin. discussed with cardiology, no need for ECHO as will no chemical cell changer. acute encephalopathy due to UTI - INSPECTOR BARREL evaluation: recommend NDD1 solids, thin liquids. treated with IV ceftriaxone, urine culture growing e.coli sensitive to ceftriaxone. Leukocytosis resolved. Initial concern for pneumonia on CXR but no evidence of PNA on chest CT. RVP checked and was negative, no hypoxia. will complete course of po antibiotics Time Spent with Patient Time attestation: Total time managing care of this patient today ____ minutes. Discharge coordination time: Greater than 30 minutes Quality: Safe Use of Opioids Does Pt have an Active Cancer Diagnosis on the Problem List?: No Quality: Stroke Does the patient have a stroke diagnosis?: No Physical Exam Vital Signs: Vital Signs: Last Vital Signs Temp 98.8 F 02/05/23 11:34 Pulse 83 02/05/23 11:34 Resp 20 02/05/23 11:34 BP 110/55 L 02/05/23 11:34 Pulse Ox 98 02/05/23 11:34 O2 Del Method Room Air 02/05/23 11:34 BMI result Body Mass Index 21.2 Const: General: cooperative, comfortable, no acute distress, alert and awake Nutritional Appearance: thin Orientation/consciousness: oriented to person Resp: Effort & Inspection: normal respiratory effort, able to speak in complete sentences, no respiratory distress and no use of accessory muscles Cardio: Rate: regular rate GI: Inspection: No distended Palpation (GI): Soft to palpation and nontender Neuro: Other: grossly nonfocal General: oriented to person and moves all extremities Extrem: General: Yes no pedal edema DS: Data Data Completed and Pending Labs on day of discharge: Laboratory Results - last 24 hr 02/04/23 02/05/23 02/05/23 12:25 05:49 05:49 WBC 9.8 RBC 3.24 L Hgb 10.3 L Hct 31.0 L MCV 95.7 MCH 31.8 MCHC 33.2 RDW 15.5 Plt Count 271 MPV 11.7 Absolute Nucleated RBC 0.000 Nucleated RBC % (auto) 0.0 Sodium 144 Potassium 3.8 Chloride 113 H Carbon Dioxide 21 L Anion Gap 14 BUN 17 H Creatinine 0.94 Estim Creat Clear Calc 53.2 Estimated GFR > 60 Random Glucose 100 Calcium 8.6 Magnesium 1.9 Respiratory Panel Singh See Note Adenovirus (Rapid PCR) Not Detected B.pert (TEM-PCR) Not Detected B.parapertussis DNA PCR Not Detected C. pneumoniae DNA (PCR) Not Detected Coronavirus OC43 (PCR) Not Detected Coronavirus HKU1 (PCR) Not Detected Coronavirus 229E (PCR) Not Detected Coronavirus NL63 (PCR) Not Detected Human Metapneumovir PCR Not Detected Influenza A (RT-PCR) Not Detected Influenza B (RT-PCR) Not Detected M. pneumoniae (PCR) Not Detected Parainfluenza 1 (PCR) Not Detected Parainfluenza 2 (PCR) Not Detected Parainfluenza 3 (PCR) Not Detected Parainfluenza 4 (PCR) Not Detected RSV (PCR) Not Detected Entero/Rhino (PCR) Not Detected SARS-CoV-2 RNA (RT-PCR) Not Detected Preliminary micro results at discharge 02/02/23 22:45 Blood Culture - Preliminary Blood - Venous No growth after 48 hours. 02/02/23 22:45 Blood Culture - Preliminary Blood - Venous No growth after 48 hours. Discharge Plan Discharge Patient Disposition: Xfer LT Discharge Diagnosis: NSTEMI afib with RVR encephalopathy secondary to UTI Referrals: Cole Pete MD [Primary Care Provider] - 1 Week Discharge Medications: New metoprolol tartrate 25 mg Tablet 25 mg PO TID 30 Days Qty: 90 0RF Protocol: Hold for SBP/HR < HOLD for SBP < : 90 HOLD for HR < : 60 atorvastatin 40 mg Tablet 40 mg PO BEDTIME 30 Days Qty: 30 0RF cefuroxime axetil 250 mg tablet 250 mg PO BID 3 Days Qty: 6 0RF Continued clopidogrel 75 mg tablet 75 mg PO DAILY 90 Days Qty: 90 3RF folic acid 1 mg tablet 1 mg PO DAILY Qty: 90 1RF tramadol 50 mg tablet 50 mg PO TID PRN (Reason: Pain (Scale Score 4-6)) 30 Days Qty: 21 2RF terazosin 5 mg capsule 1 cap PO BEDTIME cholecalciferol (vitamin D3) [Vitamin D3] 25 mcg (1,000 unit) Tablet 25 mcg PO DAILY calcium carbonate-vitamin D3 250 mg-3.125 mcg (125 unit) Tablet 500 mg PO BIDWM Qty: 30 0RF omeprazole 20 mg capsule,delayed release(DR/EC) 40 mg PO DAILY@0630 Xarelto 20 mg tablet 20 mg PO DAILY@1700 Rx Instructions: must administer with evening meal sennosides [senna] 8.6 mg Tablet 17.2 mg PO BEDTIME PRN (Reason: Constipation) acetaminophen 325 mg Tablet 650 mg PO Q4H PRN (Reason: pain or fever) polyethylene glycol 3350 [Miralax] 17 gram Powder In Packet 17 g PO DAILY naloxone [Narcan] 0.4 mg/mL Solution 0.4 mg SUBCUT Q3M PRN (Reason: Opiate Reversal) Rx Instructions: NTExceed 10 mg total dose/episode magnesium hydroxide [Milk of Magnesia] 400 mg/5 mL Suspension 30 ml PO DAILY PRN (Reason: Constipation) bisacodyl 10 mg Suppository 10 mg [place] DAILY PRN (Reason: Constipation) Fleet Enema 19-7 gram/118 mL Enema 118 ml [place] DAILY PRN (Reason: Constipation) docusate sodium 100 mg Capsule 100 mg PO BID Discontinued acetaminophen 500 mg Tablet 1,000 mg PO TID Discharge Orders: Discharge Order (Routine); Ordered 02/05/23 Ordered By: Vale Sampson Activity on Discharge: As tolerated Stand Alone Forms: Patient Portal Discharge page Care Plan Goals: see below Health Concerns: NSTEMI afib with RVR encephalopathy secondary to UTI Plan of Treatment: back in sinus rhythm. started on metoprolol 25 TID for NSTEMI - started on BB as above and statin; continue plavix for UTI - complete 3 more days of ceftin seen by speech, recommend NDD1 solids and thin liquids Assessment: see discharge summary
--- NOTE | 2023-02-05 13:18 | MHC.CM.PN ---
DP: PT HAS BEEN MEDICALLY CLEARED FOR DC BACK TO [facility] TO RESUME LTC. RN AWARE. SON/HCP JANNET MADE AWARE OF DC VIA TELEPHONE MESSAGE. BLS TRANSPORT BOOKED FOR 3 PM VIA [facility]
--- NOTE | 2023-02-05 13:58 | MHC.SL.SWA ---
Speech Pathologist Impression: Risk of Aspiration Due to: Poor PO Intake Reduced Cognition Dysphasia Diet Status: Recommend patient continue on current diet of PUREE (NDD1) for ease of management, and thin liquids by cup sip or straw, pills crushed in puree. Liquid Consistency and Strategies for Safe Swallow: Liquid Intake Recommendation: Thin Liquid Intake Strategies: No Straws Liquids by Teaspoon Only Solid Food Consistency: Dietary Recommendations: Pureed (NDD1) Additional Modifications to Solid Foods: Patient will continue to benefit from direct supervision during meal with some cuing to alternate bites of food with sips of liquid, and management of any spills. Oral Medication Intake: Crushed with Puree Please contact the pharmacy regarding appropriate crushable or liquid drug formulations that are available whenever modified delivery is recommended. Compensatory Strategies and Precautions to be Taken for Safe Swallow: Sitting Upright (90 deg) Liquids from Cup Liquids from Straw Small Bites and Sips Alternate Liquids/Solids Oral Check Supervision While Eating and Drinking for Safe Swallow: Total Supervision (1:1) Foods to Avoid: Swallowing Recommended Treatments: Compens. Strategy Educat. Recommendation for Speech: Inpatient Speech Therapy Comment: Patient seen during lunch for toleration of diet and possible upgrade. Patient at onset requested to be allowed to feed himself. Patient was assisted with having tray, food and utensils within reach and having patient covered with towel to catch any spills. With direct supervision, patient was able to feed self, with some occasional cuing to alternate with sips of liquid and assistance managing any spills. Patient took most of main course (pureed barbequed pork), noted some what slow, disorganized oral phase with occasional oral residual. Residual cleared by sips of liquid. Patient given softened cracker in puree, with patient producing a prolonged period of masticating/mashing the bolus, with evident oral residual after swallow. Residual cleared by sips of liquid. Patient was observed throughout meal taking straw sips of liquid, which is his preferred way of drinking, aiding independence. Patient occasionally had a mildly wet vocal quality, but it resolved when patient cleared throat. Recommend patient continue on current diet of PUREE (NDD1) for ease of management, and thin liquids by cup sip or straw. Patient will continue to benefit from direct supervision during meal with some cuing to alternate bites of food with sips of liquid, and management of any spills. Frequency/Duration: Date Range for Service Req: Timeline to reassess: Orthopedic Assistant Clinican/Clinical Fellow: No Supervisory Statement: I have reviewed and agree with the student/clinical fellow's documentation: N/A Speech Language Pathologist: Cristal Gutierres M.A., CCC-FUNERAL SERVICE APPRENTICE
[2023-02-05 15:03] VITALS: BP 94/47; PULSE 69; RESP 20; TEMP 36.7; O2SAT 98
== END 2023-02-05 15:22 | DRG 280 ==
LOC: HO.ED 18:50 → HO.EDOVER 21:47 → HO.IMC 02-03 00:56
PROVIDERS: Family Medicine; Admitting Provider Physician Assistant; Emergency Provider Internal Medicine; PCP Family Medicine; Visit Provider Physician Assistant Medical
DX: I48.0 Paroxysmal atrial fibrillation (principal); G93.41 Metabolic encephalopathy; I21.A1 Myocardial infarction type 2; J18.0 Bronchopneumonia, unspecified organism; N39.0 Urinary tract infection, site not specified; I25.10 Atherosclerotic heart disease of native coronary artery without angina pectoris; G89.21 Chronic pain due to trauma; I25.5 Ischemic cardiomyopathy; F03.90 Unspecified dementia, unspecified severity, without behavioral disturbance, psychotic disturbance, mood disturbance, and anxiety; E78.00 Pure hypercholesterolemia, unspecified; Z20.822 Contact with and (suspected) exposure to COVID-19; Z79.01 Long term (current) use of anticoagulants; Z79.02 Long term (current) use of antithrombotics/antiplatelets; Z79.899 Other long term (current) drug therapy
CPT/HCPCS: 36415; 70450; 71045; 71250; 80048; 80053; 81001; 83735; 83880; 84145; 84484; 85025; 85027; 85610; 87040; 87086; 87088; 87186; 87633; 92526; 92610; 93005; 99285; C1758; J0696; J1650; J2060

== ENCOUNTER 2023-04-01 15:03 | Outpatient (REF) | payer OTHER, SELFPAY ==
--- NOTE | ~2023-04-01 | FL_ITS ---
EXAMINATION: XR BARIUM SWALLOW CLINICAL INFORMATION: Dysphasia. COMPARISON: None available. TECHNIQUE: Modified barium swallow with speech pathologist. FINDINGS: Patient swallowed material from thin liquid to barium coated cookie consistency. There is noted to be trace transient laryngeal penetration with some mild aspiration on a few swallows of thin liquid and honey thick consistency. No cough reflex was elicited with the aspiration. FLUOROSCOPY TIME: 3.0 minutes. DOSE AREA PRODUCT: 1.309 Gy-cm2 (springer-centimeter squared). FL/FL barium swallow modified IMPRESSION: Laryngeal penetration with trace aspiration on thin liquid and honey thick material without cough reflex. Please refer to speech pathology report for details.
--- NOTE | 2023-04-03 17:49 | MHC.SL.IMP ---
Date of Plan of Treatment: 04/01/23 Onset of Symptoms/Illness: 02/04/23 Date Treatment Started: 04/01/23 Admitting Diagnosis: Dysphagia Primary Speech & Language Diagnosis: R13.12 Oropharyngeal Phase Dysphagia Reason for Today's Visit: 87689 Modified Barium Swallow Study Pre-evaluation Dietary Consistencies: Regular Pre-evaluation Liquid Consistency: Thin Pre-evaluation Medication Administration: UNK Medical History: Modified Barium Swallow Study Fluoroscopic Evaluation of Swallowing Function CPT Code 53861 Evaluation Year: 2022 Reason for Study: Hx CVA, GERD Referring Physician: Cole Pete Evaluating Clinician: Deb Lucio MA, CCC-MANAGER BABY Study Number: 1 Patient Name: All Nicole Status: Outpatient Age: 83 Gender: Male Medical History Medical History Abdominal aortic aneurysm Acetabular fracture Anxiety and depression Compression fracture of L3 vertebra Compression fracture of L3 vertebra Corneal abrasion, left Coronary artery disease CVA (cerebral vascular accident) GERD (gastroesophageal reflux disease) Hypercholesterolemia Hypertension Interstitial lung disease Left rib fracture NSTEMI (non-ST elevated myocardial infarction) Paroxysmal A-fib Rotator cuff dysfunction Tubular adenoma of colon Ulnar neuropathy Vertebral fracture Family History Father Medical history unknown Mother Medical history unknown Surgical History History of appendectomy History of bilateral cataract extraction History of bursectomy History of hemorrhoidectomy S/P cardiac catheterization Current (pre-evaluation) Intake/Diet: Route: PO Diet Grade: Regular Liquid Consistencies: Thin Pre-Study Functional Oral Intake Scale (FOIS): 7- Total oral intake with no restrictions Pain: None reported at time of study SUBJECTIVE: Pt is an 83 year old male who is a LTC resident at [facility]. Pt?s PMH is significant for CVA and GERD, among others. Pt was seen by MANAGER BABY during inpatient stay in January 2023 when admitted for acute encephalopathy d/t UTI vs. PNA. At the time, his reported baseline diet was unmodified (regular solids, thin liquids). He was discharged on MANAGER BABY recommendation for pureed solids and continued ST services at [facility]. Per paperwork which was brought w/ the patient, he has been on aspiration precautions at the living facility. Oral Motor Exam Mouth Occlusion: Normal Oral-Facial Teeth Characteristics: Partially Missing Spaces Oral-Facial Teeth Miscellaneous Observation: Missing teeth Tongue Size: Normal Tongue Excursion Description: Normal Tongue Range of Movement Description: Normal Tongue Speed of Movement Description: Normal Tongue Strength of Movement (against opposing pressure): Normal Tongue Movement Characteristics: Normal/Absent Is patient able to manage secretions?: Yes Food and Liquid Trials: Oral Impairment: Lip Closure: Did not test Oral Impairment: Tongue Control During Bolus Hold: 2=Posterior escape of less than half of bolus Oral Impairment: Bolus Preparation/Mastication: 1=Slow prolonged chewing/mashing with complete re-collection Oral Impairment: Bolus Transport/Lingual Motion: 3=Repetitive/disorganized tongue motion Oral Impairment: Oral Residue: 2=Residue collection on oral structures Oral Impairment:Initiation of Pharyngeal Swallow: 2=Bolus head at posterior laryngeal surface of epiglottis Pharyngeal Impairment: Soft Palate Elevation: 0=No bolus between soft palate (SP)/pharyngeal wall (PW) Pharyngeal Impairment: Laryngeal Elevation: 1=Partial thyroid cartilage/arytenoids to epiglottic petiole movement Pharyngeal Impairment: Anterior Hyoid Excursion: 1=Partial anterior movement Pharyngeal Impairment: Epiglottic Movement: 1=Partial inversion Pharyngeal Impairment: Laryngeal Vestibular Closure:: 1=Incomplete: narrow column air/contrast in laryngeal vestibule Pharyngeal Impairment: Pharyngeal Stripping Wave: 1=Present: diminished Pharyngeal Impairment: Pharyngeal Contraction: Did not test Pharyngeal Impairment: Pharyngoesophageal Segment Openin=Complete distension and complete duration: no obstruction of flow Pharyngeal Impairment: Tongue Base (TB) Retraction: 2=Narrow column of contrast/air between TB and posterior PW Pharyngeal Impairment: Pharyngeal Residue: 2=Collection of residue within or on pharyngeal structures Pharyngeal Impairment: Esophageal Clearance Upright Position: Did not test Impressions and Recommendations Clinical Observations: OBJECTIVE: Time-out: performed at 15:20 Evaluation Start: 15:00; Stop: 15:06 Patient Positioning: Seated 70-90 degrees Viewing Planes: LATERAL ONLY Contrast: MBSImP? Standardized Protocol using commercially prepared, standardized Barium viscosities, including: Varibar? THIN LIQUID (40% w/v, <15 cps) , Varibar? NECTAR (40% w/v, <150-450 cps) , Varibar? THIN HONEY (40% w/v, <800-1800 cps) , 1/2 Shortbread Cookie (1 x1 x.25 ) [facility] ID: [id number] [facility] Results: Lip closure for intraoral bolus containment could not be assessed due to logistical reasons not related to physiologic impairment. Tongue control during bolus hold resulted in posterior escape of less than half of the bolus. Bolus preparation and mastication resulted in slow, prolonged chewing/mashing but with complete re-collection. Bolus transport/lingual motion was with repetitive/disorganized motion of the tongue. Oral residue was a collection on oral structures. Initiation of the pharyngeal swallow occurred as the bolus head was at the posterior laryngeal surface of the epiglottis. Soft palate elevation resulted in no bolus between the soft palate and the pharyngeal wall. Laryngeal elevation was decreased, with partial superior movement of the thyroid cartilage/partial approximation of the arytenoids to the epiglottic petiole. Anterior hyoid excursion demonstrated partial anterior movement. Epiglottic movement resulted in partial inversion. Laryngeal vestibular closure was incomplete, with a narrow column of air/contrast noted within the laryngeal vestibule at the height of the swallow. Pharyngeal stripping wave was present, but diminished. Pharyngeal contraction could not be determined due to logistical reasons not related to physiologic impairment. Pharyngoesophageal segment opening was completely distended for complete duration with no obstruction of bolus flow. Tongue base retraction allowed a narrow column of contrast or air between the retracted tongue base and the posterior pharyngeal wall. Pharyngeal residue was a collection of residue within or on pharyngeal structures. Esophageal clearance in the upright position could not be assessed due to logistical reasons not related to physiologic impairment. Oral Impairment Score: 10 (absence of score, component 1) Pharyngeal Impairment Score: 9 (absence of score, component 13) Esophageal Impairment Score: --- (absence of score, component 17) Laryngeal Penetration and Aspiration: Both Penetration and Aspiration were observed in today's study. Keyport-thick Contrast entered the airway, remained above the vocal folds, and was ejected from the airway. Keyport-thick Contrast entered the airway, contacted the vocal folds, and was ejected from the airway. Honey-thick, Thin Contrast entered the airway, passed below the vocal folds, and no effort were made to eject. ASSESSMENT: This exam was conducted by a multidisciplinary team, which included a speech pathologist, radiologist, and library cataloging technician. Pt was seated upright at 90 degrees for lateral view only. Pt trialed the following liquid and solid consistencies: thin liquid barium by cup, nectar thick liquid barium by cup; honey thick liquid barium by cup, pureed solid (applesauce mixed with barium paste), ground solid (chicken salad mixed with barium paste), regular solid (Julieta Doone shortbread cookie coated with barium paste). Unable to visualize labial seal. Mastication was slowed and prolonged, especially with regular texture solid. Posterior lingual motion was slowed, at times characterized by repetitive and maladaptive tongue pumping. There was mild lingual residue which cleared with subsequent swallows. Pharyngeal swallow trigger initiated as the bolus head reached the posterior laryngeal surface of the epiglottis. There was no nasopharyngeal reflux. Incomplete laryngeal elevation. Incomplete epiglottic inversion and incomplete laryngeal vestibular closure resulted in episodes of aspiration. There was deep penetration and subsequent aspiration of contrast with trials of thin liquid and honey thick liquid. Trace amount of contrast entered the airway and passed below the vocal folds with no reflexive cough response. There was penetration above and to the level of the vocal folds with trials of nectar thick liquid. There was mild collection of residue on the tongue base, on the posterior pharyngeal wall, in the valleculae, and in the pyriform sinus, which was cleared with subsequent swallows. Liquid Intake Recommendation: Keyport Thick Liquid Intake Strategies: Small Sips, No Straws, Double Swallow Dietary Recommendations: Chopped/Advanced (NDD3) Medication Administration: Crushed with Puree Please contact the pharmacy regarding appropriate crushable or liquid drug formulations that are available whenever modified delivery is recommended. Compensatory Strategies Recommended: Sitting Upright (90 deg), Double Swallow, No Straw, Liquids from Cup, Liquids from Spoon, Small Bites and Sips, Rate of Ingestion Change, Oral Check, Avoid Specific Foods Supervision during eating and or drinking: Total Supervision (1:1) Recommended Treatments: Compens. Strategy Educat. Recommendation for Speech Therapy: Speech Therapy through Rehab Facility/ LTC Text Comment: PLAN: Intake Recommendations: Route: PO Diet Grade: CHOPPED/ADVANCED (NDD3) Liquid Consistencies: Keyport Post-Study Functional Oral Intake Scale (FOIS): 5- Total oral intake of multiple consistencies requiring special preparation This exam revealed moderate oropharyngeal dysphagia, characterized by slowed oral preparatory phase, prolonged mastication with harder solids, repetitive tongue pumping, delayed swallow, incomplete epiglottic inversion, and incomplete laryngeal vestibular closure. Silent aspiration of trace amount of contrast on trials of thin liquid and honey thick liquid. Evidence of penetration with trials of nectar thick liquid. Pt was able to reduce oral and pharyngeal residuals with multiple dry swallows. Recommend modified diet CHOPPED/ADVANCED (NDD3) solids with STRICT ASPIRATION PRECAUTIONS: -Take small bites of food and chew well -Moisten food with sauces and gravies, ensuring sauces are thick, mixed, and blended in well with food -Avoid: hard to chew, tough solids; dry foods; sticky or crunchy textures; mixed consistencies; foods that break up into small pieces (rice, popcorn, nuts) -Follow each bite with 1-2 additional dry swallows to promote pharyngeal clearance -Maintain upright 90 degree position while eating and drinking and for at least 30 minutes afterwards -Ensure a rigorous daily oral care routine before first meal and after each subsequent meal -Pills crushed with puree (consult with pharmacy) Based on observations made during this exam, safest liquid consistency appears to be NECTAR THICK. Presence of penetration does still pose a risk of subsequent aspiration and patient is therefore recommended strict precautions: -take small, individual sips -no sequential sipping or ?chugging? of liquids -liquids by spoon or controlled cup -avoid the use of straws -upright 90 degree position when drinking At the end of the exam, MANAGER BABY discussed these recommendations with pt and care provider from [facility]. Pt protested any sort of diet modification. Recommend continued speech therapy services at pt?s LTC facility for dysphagia treatment. Pt would benefit from ongoing support and education pertaining to the results of this exam, risks of aspiration, recommended textures, and aspiration precautions/safe eating strategies. Pt/caregiver may consider a Fonseca free water protocol as an alternate option wherein pt drinks nectar thickened liquids with meals, but is offered thin liquid (water only) between meals with strict aspiration precautions (oral care before presenting water). Please note, this exam showed aspiration with thin liquid. Pt/caregiver must understand the risks, as this protocol would NOT prevent aspiration. A water protocol an option to promote hydration and comfort while accepting these risks. Ultimately, these decisions regarding medical care are up to the patient, caregiver/HCP if applicable, and his medical team. Recommend continued monitoring of pt?s dysphagia. If there are any changes or worsening of symptoms, consult with MD, at which point a re-evaluation may be indicated. Therapy Recommendations: Therapy will be continued Prognosis for Improvement: The prognosis for the patient to meet nutritional needs by mouth is fair based on degree of impairment, stimulability for treatment. Billing Checker Goals: ? The patient will tolerate the least restrictive diet with a safe/efficient swallow to maintain adequate nutrition and hydration. ? The patient and/or family will participate in further education for swallowing goals. Short Term Goals: ? Diet - The patient will tolerate a modified dysphagia diet with nectar thick liquids without signs or symptoms of penetration/aspiration 100% of the time. - The patient will participate in therapeutic PO trials with the MANAGER BABY. ? Guidelines - The patient will comply with/recall the following guidelines/strategies 100% of the time with moderate cuing: Keyport-thick Liquid, Bolus Volume Change, Rate of Ingestion Change, Additional Swallow(s) per Bolus, Throat Clear, No Straws. ? Education - The patient, family, caregiver, nurse will verbalize/demonstrate understanding of the results of this evaluation, the above recommendations, and the swallowing guidelines. Frequency/Duration: PRN Date Range for Service Requested: Timeline to reassess: 6 months Clinician - Supplemental, Miscellaneous Communication: It is important to note MBSS objective studies are snapshots in time and Patient function might vary with factors such as time of day or concomitant medical conditions. For this reason, the final treatment plan for this patient should rest with their medical care team. Additional recommendations should be considered with the totality of the Patient in mind. Thank for the opportunity to participate in the care of this patient. If you have any questions about the content of this report, please contact the [facility] at [facility]. Education: Education regarding findings from today's study and plans for therapy were provided to Patient and family/caregiver through Verbal Instruction. De Ionizer Operator Clinician/Clinical Fellow: No Supervisory Statement: N/A Speech Language Pathologist: Deb Lucio M.A., [facility]-MANAGER BABY
== END 2023-04-01 15:04 | disposition home or self-care (01) ==
LOC: HO.XRAY 15:03
PROVIDERS: PCP Family Medicine; Visit Provider Family Medicine
DX: R13.12 Dysphagia, oropharyngeal phase (principal)
CPT/HCPCS: 74230; 92611

== ENCOUNTER → 2023-04-01 15:15 | Outpatient (BNV) | payer OTHER, SELFPAY | PROVIDERS: PCP Family Medicine; Visit Provider Radiology Diagnostic Radiology | DX: R13.10 Dysphagia, unspecified (principal) | CPT/HCPCS: 74230 ==

== ENCOUNTER 2024-11-20 23:14 | Inpatient (IN) | payer MEDICARE, MEDICAID, SELFPAY ==
--- NOTE | ~2024-11-20 | XR_ITS ---
CLINICAL HISTORY: hypoxia 1 view chest x-ray Comparison: 11/20/2024 Findings: Portions of the exam obscured by overlying material. The overall appearance of the chest is unchanged. IMPRESSION: 1. No change from yesterday. This document has been electronically signed by: El Radford MD on 11/21/2024 05:14:48
--- NOTE | ~2024-11-20 | XR_ITS ---
CLINICAL HISTORY: low BP, unclear cause, sepsis? 1 view chest x-ray Comparison: CT/REG/SR - CT CHEST WO IV CON - 02/03/23 09:06 EDT CR/SR - XR CHEST 1V - 02/02/23 18:33 EDT Findings: Low lung volumes. There are subpleural reticular opacities in both lungs, which were present previously. No focal infiltrate. Mild cardiomegaly. No acute fracture. IMPRESSION: 1. No acute findings. 2. 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 This document has been electronically signed by: Alex Guerrero MD on 11/21/2024 00:49:33
[2024-11-20 23:20] VITALS: BP 100/18; BP 96/54; PULSE 23; PULSE 51; RESP 15; TEMP 37.4; O2SAT 92; O2SAT 94; BMI 19.3
--- NOTE | 2024-11-20 23:26 | ECG_ITS ---
Test Reason : WEAKNESS Blood Pressure : */* mmHG Vent. Rate : 57 BPM Atrial Rate : 57 BPM P-R Int : 278 ms QRS Dur : 82 ms QT Int : 478 ms P-R-T Axes : 45 -19 -29 degrees QTcB Int : 465 ms Sinus bradycardia with sinus arrhythmia with 1st degree A-V block Nonspecific ST and T wave abnormality Abnormal ECG When compared with ECG of 03-Feb-2023 11:36, Premature ventricular complexes are no longer Present Premature atrial complexes are no longer Present UT interval has increased Vent. rate has decreased by [address] now depressed in Anterior leads Referred By: Ana Lew Electronically Signed By: ARBEN WU MD
--- NOTE | 2024-11-20 23:31 | ED.GENADULT ---
HPI - General Adult General Chief complaint: General Medical Stated complaint: SNF, BP 75/34 possible sepsis , AMS, NPO, warm Time Seen by Provider: 11/20/24 23:21 Source: EMS Mode of arrival: EMS Limitations: altered mental status and other ( dementia) History of Present Illness ED Provider: Dr. Ana Lew HPI narrative: patient comes to the emergency room via ambulance from [facility]. According to EMS, they got a phone call because the patient has been more lethargic than usual, decreased p.o. intake and low blood pressure. Initially, the facility reported a blood pressure in the 90s. Per EMS, the highest blood pressure they were able to get was in the mid 70s systolic. They gave the patient 250 mL of fluids prior to arrival and blood pressure increased to the 100 systolic. Patient has history of dementia, poor historian. However, patient states that he feels well has no complaints. Related Data Home Medications ?Medication ?Instructions ?Recorded ?Confirmed cholecalciferol (vitamin D3) 25 25 mcg PO DAILY 10/19/22 02/02/23 mcg (1,000 unit) tablet (Vitamin D3) terazosin 5 mg capsule 1 cap PO BEDTIME 10/19/22 02/02/23 acetaminophen 325 mg tablet 650 mg PO Q4H PRN pain or fever 02/02/23 02/02/23 bisacodyl 10 mg rectal suppository 10 mg MO DAILY PRN Constipation 02/02/23 02/02/23 docusate sodium 100 mg capsule 100 mg PO BID 02/02/23 02/02/23 magnesium hydroxide 400 mg/5 mL 30 ml PO DAILY PRN Constipation 02/02/23 02/02/23 oral suspension (Milk of Magnesia) naloxone 0.4 mg/mL injection 0.4 mg subcut Q3M PRN Opiate 02/02/23 02/02/23 solution Reversal omeprazole 20 mg capsule,delayed 40 mg PO DAILY@0630 02/02/23 02/02/23 release polyethylene glycol 3350 17 gram 17 g PO DAILY 02/02/23 02/02/23 oral powder packet (Miralax) rivaroxaban 20 mg tablet (Xarelto) 20 mg PO DAILY@1700 02/02/23 02/02/23 sennosides 8.6 mg tablet (senna) 17.2 mg PO BEDTIME PRN Constipation 02/02/23 02/02/23 sodium phosphates 19 gram-7 118 ml MO DAILY PRN Constipation 02/02/23 02/02/23 gram/118 mL enema (Fleet Enema) Previous Rx's ?Medication ?Instructions ?Recorded clopidogrel 75 mg tablet 75 mg PO DAILY 90 days #90 tabs 08/15/21 folic acid 1 mg tablet 1 mg PO DAILY #90 tabs 12/24/21 tramadol 50 mg tablet 50 mg PO TID PRN Pain (Scale Score 08/29/22 4-6) 30 days #21 tabs calcium 250 mg (as 500 mg PO BIDWM #30 tabs 10/25/22 carbonate)-vitamin D3 3.125 mcg (125 unit) tablet atorvastatin 40 mg tablet 40 mg PO BEDTIME 30 days #30 tabs 02/05/23 cefuroxime axetil 250 mg tablet 250 mg PO BID 3 days #6 tabs 02/05/23 metoprolol tartrate 25 mg tablet 25 mg PO TID 30 days #90 tabs 02/05/23 Allergies Allergy/AdvReac Type Severity Reaction Status Date / Time No Known Allergies Allergy Verified 11/20/24 23:27 [No Known Allergies*] Review of Systems Review of Systems: Yes Other ( Dementia, altered mental status) [facility] Past Medical History Medical History Corneal abrasion, left Compression fracture of L3 vertebra Compression fracture of L3 vertebra NSTEMI (non-ST elevated myocardial infarction) Left rib fracture Rotator cuff dysfunction Anxiety and depression Ulnar neuropathy Vertebral fracture Acetabular fracture Interstitial lung disease Tubular adenoma of colon Coronary artery disease GERD (gastroesophageal reflux disease) Hypertension Abdominal aortic aneurysm CVA (cerebral vascular accident) Hypercholesterolemia Paroxysmal A-fib Surgical History S/P cardiac catheterization History of bursectomy History of bilateral cataract extraction History of hemorrhoidectomy History of appendectomy Family History Family History Father Medical history unknown Mother Medical history unknown Social History Social History Household Members: Unknown / Unable to assess Housing: Detention Do you presently have visiting nurse or other home services: No Unable to assess alcohol history related to: Unable to respond Alcohol intake: never Patient Tobacco Use Status: Never used Tobacco Smoked in Last 30 Days: No e-Cigarette/Vaping Use: Never Used Second Hand Smoke Exposure: No Use of substances other than those prescribed or required for medical reasons: No Advance Directives: Yes Advance Directives on File: Yes Advance Directives Date on File: 02/02/23 Do you have a plan to hurt others: No Plan service: No Current occupational status: retired Cognitive needs: No Hearing needs: Yes Vision needs: Yes Physical Exam ED Vital Signs: Vital Signs - 24 hr 11/20/24 23:20 11/20/24 23:55 Temperature 99.4 F Pulse Rate 51 51 Respiratory Rate 15 16 Blood Pressure 100/18 L 122/27 L Pulse Oximetry 92 96 Oxygen Delivery Method Room Air Nasal Cannula Oxygen Flow Rate 2 BMI result Body Mass Index 19.3 Const Other: Appearance: Alert. Oriented X1 No acute distress. Eyes: Pupils equal, round and reactive to light. ENT: Pharynx normal. Neck: Normal inspection. Neck supple. No lymph nodes noted. No crepitus CVS: Normal heart rate and rhythm. Pulses normal. Normal S1 and S2 Respiratory: No respiratory distress. Breath sounds normal. No Wheezing. No rales Abdomen: Soft and nontender. No rigidity. No distention. Skin: Skin warm and dry. mild diffuse pale skin color. Normal skin turgor. Extremities: No lower extremity edema. No Lacerations. No Rash Neuro: Oriented X 1. No motor deficit. No sensory deficit. Moving all extremities. No slurred speech. CN 2 through 12 grossly intact Psych: calm, cooperative, normal affect Course Course Course Narrative: according to EMS, patient's blood pressure was in the 70s. Patient received 250 mL of normal saline prior to arrival. On arrival, blood pressure 100/18 systolic. Heart rate 51. Patient is empirically getting IV fluids, ceftriaxone to cover for both respiratory and urinary pathologies. At this time, no clear source of infection. At this time of arrival, 23:30, sepsis is not suspected. All of patient's labs and imaging pending. Medications Administered Generic Name Dose Route Start Last Admin Trade Name Freq PRN Reason Stop Dose Admin Sodium Chloride 2,000 mls @ 999 mls/hr 11/20/24 23:27 11/20/24 23:48 Ns IVCONT 11/21/24 01:27 999 mls/hr .Q2H1M ONE Administration Discontinued Medications Generic Name Dose Route Start Last Admin Trade Name Jennifer PRN Reason Stop Dose Admin Ceftriaxone Sodium 1 gm 11/20/24 23:27 11/20/24 23:41 Ceftriaxone Sodium 1 Gm Vial IVPUSH 11/20/24 23:28 1 gm ONCE ONE Administration Medical Decision Making Medical Decision Making [facility] Narrative: interpretation of labs: Patient's white blood cell count 12.2 which is elevated for the patient. Baseline 9-10. Patient's hemoglobin 8.0. Patient on blood thinners. Occult test negative for blood. Last set of labs were obtained in 2022, unclear if this is the baseline for the patient or if hemoglobin is acutely low. Chemistry shows a creatinine of 1.6. No previous labs since 2 years ago. Patient already received fluids. Normal LFTs, BNP slightly bumped at 128. Normal troponin. Urinalysis positive for UTI Chest x-ray does not show any acute abnormalities. since patient arrived, patient has not had any episodes of hypotension, patient's blood pressure no 122/127, pulse 51, temperature 99.4 degrees. sepsis not suspected Differential Diagnosis Differential Diagnoses: The differential diagnosis associated with the presentation includes ( UTI, viral syndrome, sundowning) Admission/Observation Consideration of admission/observation: Escalation of care including admission/observation considered Consult Healthcare Provider Management of the patient was discussed with: Hospitalist Lab Data [facility] Lab Attestation statement: I reviewed the patient's lab results. 11/20/24 23:29 11/20/24 23:29 Labs: Lab Results 11/20/24 11/20/24 11/21/24 Range/Units 23:29 23:44 00:17 WBC 12.2 H (4.8-10.8) X10*3/uL RBC 2.64 L (4.60-5.80) X10*6/uL Hgb 8.0 L D (14.0-18.0) g/dl Hct 23.5 L D (42.0-52.0) % MCV 89.0 (80.0-98.0) fL MCH 30.3 (27.0-33.0) pg MCHC 34.0 (31.0-36.0) g/dl RDW 18.4 H (11.0-16.0) % Plt Count 257 (160-400) X10*3/uL MPV 11.0 (9.4-12.4) fL Immature Gran % (Auto) 0.3 (0.0-0.4) % Neut % (Auto) 69.1 (45-73) % Lymph % (Auto) 15.8 L (20-40) % Cass % (Auto) 9.7 (2-11) % Eos % (Auto) 4.7 H (0-4) % Baso % (Auto) 0.4 (0-2) % Lymph # (Auto) 1.9 (1.2-4.9) X10*3/uL Cass # (Auto) 1.2 (0.1-1.2) X10*3/uL Eos # (Auto) 0.6 H (0.0-0.4) X10*3/uL Baso # (Auto) 0.1 (0.0-0.2) X10*3/uL Abs Immat Gran (auto) 0.04 H (0.00-0.03) X10*3/uL Absolute Neuts (auto) 8.4 H (2.0-8.3) x10*3/uL Absolute Nucleated RBC 0.000 (0.0-0.012) X10*3/uL Nucleated RBC % (auto) 0.0 (0.0-0.2) /100WBC Hold Blue Top SEE NOTE VBG pH 7.47 H (7.32-7.43) VBG pCO2 35 mmHg VBG pO2 44 mmHg VBG HCO3 26 (22-26) mmol/L VBG O2 Saturation TNP VBG Base Excess 2.6 mmol/L Sodium 142 (135-145) mmol/L Potassium 4.7 (3.3-5.1) mmol/L Chloride 113 H (96-108) mmol/L Carbon Dioxide 23 (22-29) mmol/L Anion Gap 11 L (12-20) BUN 33 H (9-16) mg/dL Creatinine 1.60 H (0.5-1.4) mg/dL Estim Creat Clear Calc 30.7 Estimated GFR 41 Random Glucose 92 (60-115) mg/dL Lactic Acid 0.7 (0.5-2.0) mmol/L Calcium 7.9 L D (8.4-10.2) mg/dL Magnesium 1.8 (1.6-2.6) mg/dL Total Bilirubin 0.5 (0.0-1.0) mg/dL Direct Bilirubin 0.2 (0.0-0.5) mg/dL AST 30 (5-37) U/L ALT < 6 (0-40) U/L Alkaline Phosphatase 69 (39-117) U/L Troponin I High Sens 8.3 D (<3.5-35.0) ng/L B-Natriuretic Peptide 128 H (<100) pg/mL Total Protein 6.3 L (6.5-8.0) g/dL Albumin 2.6 L (3.5-5.0) g/dL TSH 1.78 (0.32-4.0) uIU/mL Urine Color BROWN Urine Appearance Turbid Urine pH 5.5 (5.0-9.0) Ur Specific [place] >= 1.030 H (1.005-1.025) Urine Protein 100 (2+) H (Neg-Trace) mg/dL Urine Glucose (UA) Negative (Negative) mg/dL Urine Ketones Trace (Negative) mg/dL Urine Blood Large (3+) H (Negative) Urine Nitrite Positive H (Negative) Ur Leukocyte Esterase Moderate (2+) H (Negative) Urine RBC >20 H (0-2) /HPF Urine WBC >50 H (0-5) /HPF Ur Squamous Epith Cells >20 (0-2) /HPF Urine Bacteria 4+ (None Seen) Hyaline Casts 6-10 (0-2) /LPF Stool Occult Blood (NEGATIVE) Influenza Type A (PCR) NEGATIVE (Negative) Influenza Type B (PCR) NEGATIVE (Negative) RSV RNA Qual (PCR) NEGATIVE (Negative) SARS-CoV-2 RNA (RT-PCR) NEGATIVE (Negative) 11/21/24 Range/Units 00:21 WBC (4.8-10.8) X10*3/uL RBC (4.60-5.80) X10*6/uL Hgb (14.0-18.0) g/dl Hct (42.0-52.0) % MCV (80.0-98.0) fL MCH (27.0-33.0) pg MCHC (31.0-36.0) g/dl RDW (11.0-16.0) % Plt Count (160-400) X10*3/uL MPV (9.4-12.4) fL Immature Gran % (Auto) (0.0-0.4) % Neut % (Auto) (45-73) % Lymph % (Auto) (20-40) % Cass % (Auto) (2-11) % Eos % (Auto) (0-4) % Baso % (Auto) (0-2) % Lymph # (Auto) (1.2-4.9) X10*3/uL Cass # (Auto) (0.1-1.2) X10*3/uL Eos # (Auto) (0.0-0.4) X10*3/uL Baso # (Auto) (0.0-0.2) X10*3/uL Abs Immat Gran (auto) (0.00-0.03) X10*3/uL Absolute Neuts (auto) (2.0-8.3) x10*3/uL Absolute Nucleated RBC (0.0-0.012) X10*3/uL Nucleated RBC % (auto) (0.0-0.2) /100WBC Hold Blue Top VBG pH (7.32-7.43) VBG pCO2 mmHg VBG pO2 mmHg VBG HCO3 (22-26) mmol/L VBG O2 Saturation VBG Base Excess mmol/L Sodium (135-145) mmol/L Potassium (3.3-5.1) mmol/L Chloride (96-108) mmol/L Carbon Dioxide (22-29) mmol/L Anion Gap (12-20) BUN (9-16) mg/dL Creatinine (0.5-1.4) mg/dL Estim Creat Clear Calc Estimated GFR Random Glucose (60-115) mg/dL Lactic Acid (0.5-2.0) mmol/L Calcium (8.4-10.2) mg/dL Magnesium (1.6-2.6) mg/dL Total Bilirubin (0.0-1.0) mg/dL Direct Bilirubin (0.0-0.5) mg/dL AST (5-37) U/L ALT (0-40) U/L Alkaline Phosphatase (39-117) U/L Troponin I High Sens (<3.5-35.0) ng/L B-Natriuretic Peptide (<100) pg/mL Total Protein (6.5-8.0) g/dL Albumin (3.5-5.0) g/dL TSH (0.32-4.0) uIU/mL Urine Color Urine Appearance Urine pH (5.0-9.0) Ur Specific [place] (1.005-1.025) Urine Protein (Neg-Trace) mg/dL Urine Glucose (UA) (Negative) mg/dL Urine Ketones (Negative) mg/dL Urine Blood (Negative) Urine Nitrite (Negative) Ur Leukocyte Esterase (Negative) Urine RBC (0-2) /HPF Urine WBC (0-5) /HPF Ur Squamous Epith Cells (0-2) /HPF Urine Bacteria (None Seen) Hyaline Casts (0-2) /LPF Stool Occult Blood NEGATIVE (NEGATIVE) Influenza Type A (PCR) (Negative) Influenza Type B (PCR) (Negative) RSV RNA Qual (PCR) (Negative) SARS-CoV-2 RNA (RT-PCR) (Negative) Independent Interpretation I performed an independent interpretation of an: Plain X-Ray Radiology Impression Discussion of test interpretation with radiology: I have reviewed the radiologist's reading. Radiologist Impression: Low lung volumes. There are subpleural reticular opacities in both lungs, which were present previously. No focal infiltrate. Mild cardiomegaly. No acute fracture. IMPRESSION: 1. No acute findings. 2. 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 Critical Care Time Critical Care Time Critical Care Time: Yes Total Critical Care Time: 60 Attestation: I have personally provided critical care time. Time includes review of lab data, radiology results, discussion with consultants, and monitoring for potential decompensation. Intervention performed as documented. Discharge Plan Discharge Clinical Impression: Acute UTI Patient Disposition: Admitted As Inpatient Prescriptions: No Action clopidogrel 75 mg tablet 75 mg PO DAILY 90 Days Qty: 90 3RF folic acid 1 mg tablet 1 mg PO DAILY Qty: 90 1RF tramadol 50 mg tablet 50 mg PO TID PRN (Reason: Pain (Scale Score 4-6)) 30 Days Qty: 21 2RF terazosin 5 mg capsule 1 cap PO BEDTIME cholecalciferol (vitamin D3) [Vitamin D3] 25 mcg (1,000 unit) Tablet 25 mcg PO DAILY calcium carbonate-vitamin D3 250 mg-3.125 mcg (125 unit) Tablet 500 mg PO BIDWM Qty: 30 0RF omeprazole 20 mg capsule,delayed release(DR/EC) 40 mg PO DAILY@0630 Xarelto 20 mg tablet 20 mg PO DAILY@1700 Rx Instructions: must administer with evening meal sennosides [senna] 8.6 mg Tablet 17.2 mg PO BEDTIME PRN (Reason: Constipation) acetaminophen 325 mg Tablet 650 mg PO Q4H PRN (Reason: pain or fever) polyethylene glycol 3350 [Miralax] 17 gram Powder In Packet 17 g PO DAILY naloxone 0.4 mg/mL Solution 0.4 mg SUBCUT Q3M PRN (Reason: Opiate Reversal) Rx Instructions: NTExceed 10 mg total dose/episode magnesium hydroxide [Milk of Magnesia] 400 mg/5 mL Suspension 30 ml PO DAILY PRN (Reason: Constipation) bisacodyl 10 mg Suppository 10 mg MO DAILY PRN (Reason: Constipation) Fleet Enema 19-7 gram/118 mL Enema 118 ml MO DAILY PRN (Reason: Constipation) docusate sodium 100 mg Capsule 100 mg PO BID metoprolol tartrate 25 mg Tablet 25 mg PO TID 30 Days Qty: 90 0RF Protocol: Hold for SBP/HR < HOLD for SBP < : 90 HOLD for HR < : 60 cefuroxime axetil 250 mg tablet 250 mg PO BID 3 Days Qty: 6 0RF atorvastatin 40 mg Tablet 40 mg PO BEDTIME 30 Days Qty: 30 0RF Print Language: Greenlandic
[2024-11-20 23:37] LABS: MANUAL DIFF FLAG NO
[2024-11-20 23:39] LABS: Basophils Absolute Auto 0.1 X10*3/uL (0.0-0.2); Basophils Percent Auto 0.4 % (0-2); Eosinophils Absolute Auto 0.6 X10*3/uL (0.0-0.4); Eosinophils Percent Auto 4.7 % (0-4); Hematocrit 23.5 % (42.0-52.0); Imm Gran Abs Auto 0.04 X10*3/uL (0.00-0.03); Imm Gran Pct Auto 0.3 % (0.0-0.4); Lymphocytes Absolute Auto 1.9 X10*3/uL (1.2-4.9); Lymphocytes Percent Auto 15.8 % (20-40); Mean Corpuscular Hemoglobin 30.3 pg (27.0-33.0); Monocytes Absolute Auto 1.2 X10*3/uL (0.1-1.2); Monocytes Percent Auto 9.7 % (2-11); Neutrophils Absolute Auto 8.4 x10*3/uL (2.0-8.3); Neutrophils Percent Auto 69.1 % (45-73); Platelet Count 257 X10*3/uL (160-400); Red Blood Count 2.64 X10*6/uL (4.60-5.80); Red Cell Distribution Width 18.4 % (11.0-16.0); White Blood Count 12.2 X10*3/uL (4.8-10.8)
[2024-11-20] MEDS: cefTRIAXone sodium 1 GM VIAL IVPUSH (23:41)
[2024-11-20 23:47] LABS: Venous Blood Gas Refer to POC result
[2024-11-20 23:48] LABS: VBG Base Excess 2.6 mmol/L; VBG HCO3 26 mmol/L (22-26); VBG pCO2 35 mmHg; VBG pH 7.47 (7.32-7.43); VBG pO2 44 mmHg
[2024-11-20] MEDS: 0.9 % Sodium Chloride 2,000 ML 999 ML IVCONT (23:48)
[2024-11-20 23:53] LABS: Lactic Acid 0.7 mmol/L (0.5-2.0)
[2024-11-20 23:55] VITALS: BP 122/27; PULSE 51; RESP 16; O2SAT 96
[2024-11-20 23:55] LABS: Alanine Aminotransferase < 6 U/L (0-40); Albumin Level 2.6 g/dL (3.5-5.0); Alkaline Phosphatase 69 U/L (39-117); Anion Gap 11 (12-20); Aspartate Amino Transferase 30 U/L (5-37); Bilirubin Direct 0.2 mg/dL (0.0-0.5); Bilirubin Total 0.5 mg/dL (0.0-1.0); Blood Urea Nitrogen 33 mg/dL (9-16); Calcium 7.9 mg/dL (8.4-10.2); Carbon Dioxide 23 mmol/L (22-29); Chloride 113 mmol/L (96-108); Creatinine Clr Calc Pharmacy 30.7; Estimated Glomerular Filt Rate 41; Glucose Random 92 mg/dL (60-115); Magnesium 1.8 mg/dL (1.6-2.6); Potassium 4.7 mmol/L (3.3-5.1); Sodium 142 mmol/L (135-145); Total Protein 6.3 g/dL (6.5-8.0)
[2024-11-20 23:59] LABS: B Type Natriuretic Peptide 128 pg/mL (<100); Troponin-I High Sensitivity 8.3 ng/L (<3.5-35.0)
[2024-11-21] VITALS (13 sets, daily range): BP systolic 125–156; BP diastolic 35–69; PULSE 52–87; RESP 14–22; TEMP 36.6–37.9; O2SAT 92–99; BMI 21.6; BMI 21.2
[2024-11-21 00:13] LABS: TSH reflex Free T4 1.78 uIU/mL (0.32-4.0)
--- NOTE | 2024-11-21 00:15 | PC.NURSE ---
straight cath done, pt tolerated well. ua sent to lab.
[2024-11-21 00:22] LABS: Influenza A PCR NEGATIVE (Negative); Influenza B PCR NEGATIVE (Negative); Resp Syncy Virus RNA Qual PCR NEGATIVE (Negative); SARS COV2 PCR INHOUSE NEGATIVE (Negative)
[2024-11-21 00:35] LABS: OBS Int Ctl Valid YES; OBS1 NEGATIVE (NEGATIVE)
[2024-11-21 00:40] LABS: Appearance Urine Turbid; Color Urine BROWN; Glucose Urine UA Negative (Negative); Leukocyte Esterase Urine Moderate (2+) (Negative); Nitrite Urine Positive (Negative); PH 5.5 (5.0-9.0); Specific Gravity - Urine >= 1.030 (1.005-1.025); UMIC TRIGGER UACC YES; Urine Blood Large (3+) (Negative); Urine Ketones Trace mg/dL (Negative); Urine Protein 100 (2+) mg/dL (Neg-Trace)
[2024-11-21 00:58] LABS: Bacteria Urine 4+ (None Seen); RBC Urine >20 /HPF (0-2); Squamous Epithelial Cell Urine >20 /HPF (0-2); UACC Culture Trigger YES; WBC Urine >50 /HPF (0-5)
--- NOTE | 2024-11-21 02:00 | PC.NURSE ---
MD made aware patients o2 83-84% on 2L NC, noted to also be mouth breathing, placed on oxymask 4L with improvement.
--- NOTE | 2024-11-21 04:20 | PC.NURSE ---
patient noted to be desatting to 84% on 4L NC, increased to 6L with no improvement. RT and MD notified coming to bedside. increased to 8L and sats remain 89%. repeat xray obtained per MD order. patient had yellow colored chunky sputum. placed on highflow by RT.
[2024-11-21 05:04] LABS: MANUAL DIFF FLAG NO
[2024-11-21 05:11] LABS: Basophils Percent Auto 0.4 % (0-2); Eosinophils Absolute Auto 0.4 X10*3/uL (0.0-0.4); Eosinophils Percent Auto 4.5 % (0-4); Hematocrit 24.7 % (42.0-52.0); Hemoglobin 8.2 g/dl (14.0-18.0); Imm Gran Abs Auto 0.06 X10*3/uL (0.00-0.03); Imm Gran Pct Auto 0.6 % (0.0-0.4); Lymphocytes Absolute Auto 1.5 X10*3/uL (1.2-4.9); Lymphocytes Percent Auto 15.1 % (20-40); Mean Corpuscular HGB Conc 33.2 g/dl (31.0-36.0); Mean Corpuscular Hemoglobin 30.4 pg (27.0-33.0); Mean Corpuscular Volume 91.5 fL (80.0-98.0); Mean Platelet Volume 11.4 fL (9.4-12.4); Monocytes Absolute Auto 0.7 X10*3/uL (0.1-1.2); Monocytes Percent Auto 6.6 % (2-11); Neutrophils Absolute Auto 7.1 x10*3/uL (2.0-8.3); Neutrophils Percent Auto 72.8 % (45-73); Platelet Count 260 X10*3/uL (160-400); Red Cell Distribution Width 18.3 % (11.0-16.0); White Blood Count 9.8 X10*3/uL (4.8-10.8)
[2024-11-21 05:27] LABS: B Type Natriuretic Peptide 171 pg/mL (<100)
[2024-11-21 05:29] LABS: Anion Gap 10 (12-20); Blood Urea Nitrogen 33 mg/dL (9-16); Calcium 7.8 mg/dL (8.4-10.2); Carbon Dioxide 23 mmol/L (22-29); Chloride 115 mmol/L (96-108); Creatinine Clr Calc Pharmacy 34.1; Estimated Glomerular Filt Rate 47; Glucose Random 85 mg/dL (60-115); Sodium 144 mmol/L (135-145)
[2024-11-21 05:45] LABS: Lactic Acid 1.1 mmol/L (0.5-2.0)
--- NOTE | 2024-11-21 06:09 | P.HPHOSP_ITS ---
History of Present Illness Date of Service: 11/21/24 Attending physician on admission: Topher Jean Chief Complaint: lethargy, AMS, hypotensive Patient is an 84-year-old male with a past medical history significant for CVA, HTN, dementia, BPH, chronic constipation, CAD, paroxysmal AFib, NSTEMI, interstitial lung disease, who presented via EMS from [facility] due to lethargy, poor p.o. intake and altered mental status with hypotension in the 70s. He was given 250 mL IV fluid by EMS with improvement into the 100s systolic. Due to altered mental status patient is a poor historian. He denies abdominal pain, urinary symptoms including frequency, urgency or dysuria. He also denies any nausea or vomiting but had an episode of vomiting in the ED, resulting in aspiration pneumonia. He is now requiring high-flow oxygen. Review of Systems 2 Review of Systems: Yes Unobtainable due to mental status [facility] Medical History Corneal abrasion, left Compression fracture of L3 vertebra Compression fracture of L3 vertebra NSTEMI (non-ST elevated myocardial infarction) Left rib fracture Rotator cuff dysfunction Anxiety and depression Ulnar neuropathy Vertebral fracture Acetabular fracture Interstitial lung disease Tubular adenoma of colon Coronary artery disease GERD (gastroesophageal reflux disease) Hypertension Abdominal aortic aneurysm CVA (cerebral vascular accident) Hypercholesterolemia Paroxysmal A-fib Family History Father Medical history unknown Mother Medical history unknown Surgical History S/P cardiac catheterization History of bursectomy History of bilateral cataract extraction History of hemorrhoidectomy History of appendectomy Social History Household Members: Unknown / Unable to assess Housing: Halfway Do you presently have visiting nurse or other home services: No Unable to assess alcohol history related to: Unable to respond Alcohol intake: never Patient Tobacco Use Status: Never used Tobacco Smoked in Last 30 Days: No e-Cigarette/Vaping Use: Never Used Second Hand Smoke Exposure: No Use of substances other than those prescribed or required for medical reasons: No Advance Directives: Yes Advance Directives on File: Yes Advance Directives Date on File: 02/02/23 Do you have a plan to hurt others: No Plan service: No Current occupational status: retired Cognitive needs: No Hearing needs: Yes Vision needs: Yes Meds Allergies Allergy/AdvReac Type Severity Reaction Status Date / Time No Known Allergies Allergy Verified 11/20/24 23:27 [No Known Allergies*] Active Medications: Current Medications Acetaminophen (Acetaminophen 325 Mg Tablet) 650 mg PO Q6H PRN PRN Reason: Pain, Mild 1-3,fever,headache Calcium Carbonate (Calcium Carbonate 750 Mg Tab.Chew) 750 mg PO Q4H PRN PRN Reason: Heartburn Ceftriaxone Sodium (Ceftriaxone Sodium 1 Gm Vial) 1 gm IVPUSH Q24H [place] Metronidazole (Flagyl) 500 mg in 100 mls @ 100 mls/hr IV Q8H [facility] Magnesium Hydroxide (Milk Of Magnesia 30 Ml Oral.Susp) 30 ml PO DAILY PRN PRN Reason: Constipation Melatonin (Melatonin 3 Mg Tablet) 6 mg PO BEDTIME PRN PRN Reason: Insomnia Ondansetron HCl (Ondansetron Hcl 4 Mg/2 Ml Vial) 4 mg IVPUSH Q8H PRN PRN Reason: Nausea and Vomiting Sodium Chloride (0.9 % Sodium Chloride Flush 3 Ml Syringe) 3 ml IVFLUSH QSHIFT [facility] Home Medications ?Medication ?Instructions ?Recorded ?Confirmed ?Last Taken ?Type cholecalciferol (vitamin D3) 25 25 mcg PO DAILY 10/19/22 02/02/23 10/18/22 History mcg (1,000 unit) tablet (Vitamin D3) terazosin 5 mg capsule 1 cap PO BEDTIME 10/19/22 02/02/23 10/18/22 History acetaminophen 325 mg tablet 650 mg PO Q4H PRN pain or fever 02/02/23 02/02/23 Unknown History bisacodyl 10 mg rectal suppository 10 mg [place] DAILY PRN Constipation 02/02/23 02/02/23 Unknown History docusate sodium 100 mg capsule 100 mg PO BID 02/02/23 02/02/23 Unknown History magnesium hydroxide 400 mg/5 mL 30 ml PO DAILY PRN Constipation 02/02/23 02/02/23 Unknown History oral suspension (Milk of Magnesia) naloxone 0.4 mg/mL injection 0.4 mg subcut Q3M PRN Opiate 02/02/23 02/02/23 Unknown History solution Reversal omeprazole 20 mg capsule,delayed 40 mg PO DAILY@0630 02/02/23 02/02/23 Unknown History release polyethylene glycol 3350 17 gram 17 g PO DAILY 02/02/23 02/02/23 Unknown History oral powder packet (Miralax) rivaroxaban 20 mg tablet (Xarelto) 20 mg PO DAILY@1700 02/02/23 02/02/23 Unknown History sennosides 8.6 mg tablet (senna) 17.2 mg PO BEDTIME PRN Constipation 02/02/23 02/02/23 Unknown History sodium phosphates 19 gram-7 118 ml [place] DAILY PRN Constipation 02/02/23 02/02/23 Unknown History gram/118 mL enema (Fleet Enema) Physical Exam 2 Vital Signs and Narrative: Vital Signs: Last Vital Signs Temp 99.4 F 11/20/24 23:20 Pulse 52 11/21/24 02:10 Resp 16 11/21/24 04:29 BP 146/50 H 11/21/24 02:10 Pulse Ox 96 11/21/24 02:10 O2 Del Method Oxymask 11/21/24 02:10 O2 Flow Rate 4 11/21/24 02:10 BMI result Body Mass Index 19.3 General: Alert, not oriented to place or time, no acute distress Resp: Rhonchorous bilaterally, no crackles or wheezing CVS: S1, S2, RRR GI: +BS, NT, no distention Skin: Warm, dry Neuro: Cranial nerves II-XII grossly intact bilaterally. Motor grossly intact bilaterally Extremities: No lower extremity edema Psych: Appropriate affect Results Labs 11/21/24 04:06 11/21/24 04:06 Labs: Laboratory Results - last 24 hr 11/20/24 11/20/24 11/21/24 23:29 23:44 00:17 MCV 89.0 MCH 30.3 MCHC 34.0 RDW 18.4 H Plt Count 257 MPV 11.0 Immature Gran % (Auto) 0.3 Neut % (Auto) 69.1 Lymph % (Auto) 15.8 L [place] % (Auto) 9.7 Eos % (Auto) 4.7 H Baso % (Auto) 0.4 Lymph # (Auto) 1.9 [place] # (Auto) 1.2 Eos # (Auto) 0.6 H Baso # (Auto) 0.1 Abs Immat Gran (auto) 0.04 H Absolute Neuts (auto) 8.4 H Absolute Nucleated RBC 0.000 Nucleated RBC % (auto) 0.0 Hold Blue Top SEE NOTE VBG pH 7.47 H VBG pCO2 35 VBG pO2 44 VBG HCO3 26 VBG O2 Saturation TNP VBG Base Excess 2.6 Anion Gap 11 L Estim Creat Clear Calc 30.7 Estimated GFR 41 Random Glucose 92 Lactic Acid 0.7 Calcium 7.9 L D Magnesium 1.8 Total Bilirubin 0.5 Direct Bilirubin 0.2 AST 30 ALT < 6 Alkaline Phosphatase 69 B-Natriuretic Peptide 128 H Total Protein 6.3 L Albumin 2.6 L TSH 1.78 Urine Color BROWN Urine Appearance Turbid Urine pH 5.5 Ur Specific [place] >= 1.030 H Urine Protein 100 (2+) H Urine Glucose (UA) Negative Urine Ketones Trace Urine Blood Large (3+) H Urine Nitrite Positive H Ur Leukocyte Esterase Moderate (2+) H Urine RBC >20 H Urine WBC >50 H Ur Squamous Epith Cells >20 Urine Bacteria 4+ Hyaline Casts 6-10 Stool Occult Blood Influenza Type A (PCR) NEGATIVE Influenza Type B (PCR) NEGATIVE RSV RNA Qual (PCR) NEGATIVE SARS-CoV-2 RNA (RT-PCR) NEGATIVE Blood Type Antibody Screen 11/21/24 11/21/24 11/21/24 00:21 00:42 04:06 MCV 91.5 MCH 30.4 MCHC 33.2 RDW 18.3 H Plt Count 260 MPV 11.4 Immature Gran % (Auto) 0.6 H Neut % (Auto) 72.8 Lymph % (Auto) 15.1 L [place] % (Auto) 6.6 Eos % (Auto) 4.5 H Baso % (Auto) 0.4 Lymph # (Auto) 1.5 [place] # (Auto) 0.7 Eos # (Auto) 0.4 Baso # (Auto) 0.0 Abs Immat Gran (auto) 0.06 H Absolute Neuts (auto) 7.1 Absolute Nucleated RBC 0.000 Nucleated RBC % (auto) 0.0 Hold Blue Top VBG pH VBG pCO2 VBG pO2 VBG HCO3 VBG O2 Saturation VBG Base Excess Anion Gap 10 L Estim Creat Clear Calc 34.1 Estimated GFR 47 Random Glucose 85 Lactic Acid Calcium 7.8 L Magnesium Total Bilirubin Direct Bilirubin AST ALT Alkaline Phosphatase B-Natriuretic Peptide 171 H Total Protein Albumin TSH Urine Color Urine Appearance Urine pH Ur Specific [place] Urine Protein Urine Glucose (UA) Urine Ketones Urine Blood Urine Nitrite Ur Leukocyte Esterase Urine RBC Urine WBC Ur Squamous Epith Cells Urine Bacteria Hyaline Casts Stool Occult Blood NEGATIVE Influenza Type A (PCR) Influenza Type B (PCR) RSV RNA Qual (PCR) SARS-CoV-2 RNA (RT-PCR) Blood Type O Positive Antibody Screen NEGATIVE 11/21/24 05:25 MCV MCH MCHC RDW Plt Count MPV Immature Gran % (Auto) Neut % (Auto) Lymph % (Auto) [place] % (Auto) Eos % (Auto) Baso % (Auto) Lymph # (Auto) [place] # (Auto) Eos # (Auto) Baso # (Auto) Abs Immat Gran (auto) Absolute Neuts (auto) Absolute Nucleated RBC Nucleated RBC % (auto) Hold Blue Top VBG pH VBG pCO2 VBG pO2 VBG HCO3 VBG O2 Saturation VBG Base Excess Anion Gap Estim Creat Clear Calc Estimated GFR Random Glucose Lactic Acid 1.1 Calcium Magnesium Total Bilirubin Direct Bilirubin AST ALT Alkaline Phosphatase B-Natriuretic Peptide Total Protein Albumin TSH Urine Color Urine Appearance Urine pH Ur Specific [place] Urine Protein Urine Glucose (UA) Urine Ketones Urine Blood Urine Nitrite Ur Leukocyte Esterase Urine RBC Urine WBC Ur Squamous Epith Cells Urine Bacteria Hyaline Casts Stool Occult Blood Influenza Type A (PCR) Influenza Type B (PCR) RSV RNA Qual (PCR) SARS-CoV-2 RNA (RT-PCR) Blood Type Antibody Screen Assessment and Plan (1) Acute metabolic encephalopathy: Status: Acute (2) Urinary tract infection: Status: Resolved (3) Acute respiratory failure with hypoxia: Status: Resolved (4) Aspiration pneumonia: Status: Acute (5) Anemia: Status: Acute (6) Acute kidney injury superimposed on CKD: Status: Acute Plan Patient is an 84-year-old male with a past medical history significant for CVA, HTN, dementia, BPH, chronic constipation, CAD, paroxysmal AFib, NSTEMI, interstitial lung disease, who presented via EMS from [facility] due to lethargy, poor p.o. intake and altered mental status with hypotension in the 70s. Acute metabolic encephalopathy secondary to urinary tract infection - WBC 12.2, lactic acid normal, vital signs stable, blood cultures x2 pending, no sepsis - UA + culture pending - given 2 L IV fluids in ED - started on ceftriaxone, continue - monitor CBC and BMP Acute hypoxic respiratory failure secondary to aspiration pneumonia - patient altered and had an episode of vomiting in ED - chest x-ray with aspiration pneumonia - COVID/flu/RSV negative - continue high-flow oxygen and titrate as appropriately - continue ceftriaxone and add Flagyl for coverage for aspiration pneumonia - NPO - speech eval - monitor CBC and BMP Normocytic anemia - hemoglobin 8.2 - fecal occult blood test negative - no need for blood transfusion at this time - monitor CBC HARSHA on CKD - no recent baseline creatinine however creatinine 1.6 currently - given 2 L IV fluids in ED - avoid nephrotoxins - monitor BMP HTN - hold BP meds due to hypotension Paroxysmal AFib - EKG with sinus bradycardia and first-degree AV block - continue rate control when appropriate - continue Xarelto Interstitial lung disease - currently on high-flow oxygen - titrate oxygen as appropriately Med reconciliation completed upon admission Full code VTE prophylaxis: Xarelto Quality Stroke Does the patient have a stroke diagnosis?: No VTE Prior VTE?: No VTE Risk Level:: Medical - moderate - high VTE Device Contraindication: Treatment Not Indicated VTE Drug Contraindication: N/A - Med Ordered
[2024-11-21] MEDS: metroNIDAZOLE/NS 500 MG/100 ML PIGGYBACK 100 MG IV ×3 (06:21→22:17)
--- NOTE | 2024-11-21 09:59 | MHC.SLORD ---
Speech Language Pathology Order Status: OVERLOCK COLLAR SETTER attempted waking pt this morning for clinical bedside swallow eval, pt too lethargic. RN consulted, OVERLOCK COLLAR SETTER to be texted if pt wakes, OVERLOCK COLLAR SETTER will return today to assess when appropriate.
--- NOTE | 2024-11-21 10:05 | PHA.MEDREC ---
Addendum entered by Alessio Nielsen RPh 11/21/24 10:30: Reviewed by [facility] Original Note: Pharmacy Consult ? Medication Reconciliation Pharmacy has completed the medication reconciliation. Utilized list from [facility] to confirm med rec.
--- NOTE | 2024-11-21 12:14 | P.PNIM_ITS ---
Subjective Subjective Date of Service: 11/22/24 Interval History: follow up with acute hypoxic resp failure due pneumonia, metabolic encephalopathy d/t uti and hypoxia remains very confused and on highflow Physical Exam 2 Vital Signs: Vital Signs: Last Vital Signs Temp 98.3 F 11/21/24 06:23 Pulse 84 11/21/24 10:53 Resp 20 11/21/24 11:42 BP 148/52 H 11/21/24 06:23 Pulse Ox 95 11/21/24 10:53 O2 Del Method High Flow Nasal C annula 11/21/24 10:53 O2 Flow Rate 40 11/21/24 10:53 FiO2 50 11/21/24 10:53 BMI result Body Mass Index 19.3 Const: Other: General:alert but very confused, frail looking Resp: rhonchi bilaterally CVS: S1,S2,RRR GI: +BS, NT, no distention Skin: No rash Neuro: motor grossly intact Psych: appropriate affect Objective Data Active Medications Acetaminophen (Acetaminophen 325 Mg Tablet) 650 mg PO Q6H PRN PRN Reason: Pain, Mild 1-3,fever,headache Calcium Carbonate (Calcium Carbonate 750 Mg Tab.Chew) 750 mg PO Q4H PRN PRN Reason: Heartburn Ceftriaxone Sodium (Ceftriaxone Sodium 1 Gm Vial) 1 gm IVPUSH Q24H [facility] Metronidazole (Flagyl) 500 mg in 100 mls @ 100 mls/hr IV Q8H [facility] Last Infusion: 11/21/24 07:39 Dose: Infused Documented By: ALONDRA Magnesium Hydroxide (Milk Of Magnesia 30 Ml Oral.Susp) 30 ml PO DAILY PRN PRN Reason: Constipation Melatonin (Melatonin 3 Mg Tablet) 6 mg PO BEDTIME PRN PRN Reason: Insomnia Ondansetron HCl (Ondansetron Hcl 4 Mg/2 Ml Vial) 4 mg IVPUSH Q8H PRN PRN Reason: Nausea and Vomiting Sodium Chloride (0.9 % Sodium Chloride Flush 3 Ml Syringe) 3 ml IVFLUSH QSHIFT [facility] Last Admin: 11/21/24 07:39 Dose: Not Given Documented By: ALONDRA Non-Admin Reason: Previously Administered Labs 11/22/24 05:37 11/22/24 05:37 Labs: Laboratory Results - last 24 hr 11/20/24 11/20/24 11/21/24 23:29 23:44 00:17 MCV 89.0 MCH 30.3 MCHC 34.0 RDW 18.4 H Plt Count 257 MPV 11.0 Immature Gran % (Auto) 0.3 Neut % (Auto) 69.1 Lymph % (Auto) 15.8 L [place] % (Auto) 9.7 Eos % (Auto) 4.7 H Baso % (Auto) 0.4 Lymph # (Auto) 1.9 [place] # (Auto) 1.2 Eos # (Auto) 0.6 H Baso # (Auto) 0.1 Abs Immat Gran (auto) 0.04 H Absolute Neuts (auto) 8.4 H Absolute Nucleated RBC 0.000 Nucleated RBC % (auto) 0.0 Hold Blue Top SEE NOTE VBG pH 7.47 H VBG pCO2 35 VBG pO2 44 VBG HCO3 26 VBG O2 Saturation TNP VBG Base Excess 2.6 Anion Gap 11 L Estim Creat Clear Calc 30.7 Estimated GFR 41 Random Glucose 92 Lactic Acid 0.7 Calcium 7.9 L D Magnesium 1.8 Total Bilirubin 0.5 Direct Bilirubin 0.2 AST 30 ALT < 6 Alkaline Phosphatase 69 B-Natriuretic Peptide 128 H Total Protein 6.3 L Albumin 2.6 L TSH 1.78 Urine Color BROWN Urine Appearance Turbid Urine pH 5.5 Ur Specific [place] >= 1.030 H Urine Protein 100 (2+) H Urine Glucose (UA) Negative Urine Ketones Trace Urine Blood Large (3+) H Urine Nitrite Positive H Ur Leukocyte Esterase Moderate (2+) H Urine RBC >20 H Urine WBC >50 H Ur Squamous Epith Cells >20 Urine Bacteria 4+ Hyaline Casts 6-10 Stool Occult Blood Influenza Type A (PCR) NEGATIVE Influenza Type B (PCR) NEGATIVE RSV RNA Qual (PCR) NEGATIVE SARS-CoV-2 RNA (RT-PCR) NEGATIVE Blood Type Antibody Screen 11/21/24 11/21/24 11/21/24 00:21 00:42 04:06 MCV 91.5 MCH 30.4 MCHC 33.2 RDW 18.3 H Plt Count 260 MPV 11.4 Immature Gran % (Auto) 0.6 H Neut % (Auto) 72.8 Lymph % (Auto) 15.1 L [place] % (Auto) 6.6 Eos % (Auto) 4.5 H Baso % (Auto) 0.4 Lymph # (Auto) 1.5 [place] # (Auto) 0.7 Eos # (Auto) 0.4 Baso # (Auto) 0.0 Abs Immat Gran (auto) 0.06 H Absolute Neuts (auto) 7.1 Absolute Nucleated RBC 0.000 Nucleated RBC % (auto) 0.0 Hold Blue Top VBG pH VBG pCO2 VBG pO2 VBG HCO3 VBG O2 Saturation VBG Base Excess Anion Gap 10 L Estim Creat Clear Calc 34.1 Estimated GFR 47 Random Glucose 85 Lactic Acid Calcium 7.8 L Magnesium Total Bilirubin Direct Bilirubin AST ALT Alkaline Phosphatase B-Natriuretic Peptide 171 H Total Protein Albumin TSH Urine Color Urine Appearance Urine pH Ur Specific [place] Urine Protein Urine Glucose (UA) Urine Ketones Urine Blood Urine Nitrite Ur Leukocyte Esterase Urine RBC Urine WBC Ur Squamous Epith Cells Urine Bacteria Hyaline Casts Stool Occult Blood NEGATIVE Influenza Type A (PCR) Influenza Type B (PCR) RSV RNA Qual (PCR) SARS-CoV-2 RNA (RT-PCR) Blood Type O Positive Antibody Screen NEGATIVE 11/21/24 05:25 MCV MCH MCHC RDW Plt Count MPV Immature Gran % (Auto) Neut % (Auto) Lymph % (Auto) [place] % (Auto) Eos % (Auto) Baso % (Auto) Lymph # (Auto) [place] # (Auto) Eos # (Auto) Baso # (Auto) Abs Immat Gran (auto) Absolute Neuts (auto) Absolute Nucleated RBC Nucleated RBC % (auto) Hold Blue Top VBG pH VBG pCO2 VBG pO2 VBG HCO3 VBG O2 Saturation VBG Base Excess Anion Gap Estim Creat Clear Calc Estimated GFR Random Glucose Lactic Acid 1.1 Calcium Magnesium Total Bilirubin Direct Bilirubin AST ALT Alkaline Phosphatase B-Natriuretic Peptide Total Protein Albumin TSH Urine Color Urine Appearance Urine pH Ur Specific [place] Urine Protein Urine Glucose (UA) Urine Ketones Urine Blood Urine Nitrite Ur Leukocyte Esterase Urine RBC Urine WBC Ur Squamous Epith Cells Urine Bacteria Hyaline Casts Stool Occult Blood Influenza Type A (PCR) Influenza Type B (PCR) RSV RNA Qual (PCR) SARS-CoV-2 RNA (RT-PCR) Blood Type Antibody Screen Assessment and Plan (1) Acute UTI: Status: Acute (2) Aspiration pneumonia: Status: Acute (3) Acute metabolic encephalopathy: Status: Acute Plan Patient is an 84-year-old male with a past medical history significant for CVA, HTN, dementia, BPH, chronic constipation, CAD, paroxysmal AFib, NSTEMI, interstitial lung disease, who presented via EMS from [facility] due to lethargy, poor p.o. intake and altered mental status with hypotension in the 70s. Acute metabolic encephalopathy secondary to urinary tract infection, treat underlying uti, culture pending, continue ceftriaxone. Acute hypoxic respiratory failure secondary to aspiration pneumonia, he is signficantly hypoxic and requiring highflow NPO for now continue Ceftriaxone and Flagyl Normocytic anemia, hemoglobin has dropped today check occult blood, hold anticoagulation follow CBC HARSHA on CKD3, HARSHA resolved with IVF IVF and monitor bmp HTN, hold med to due low bp Paroxysmal AFib, metoprolol and xarelto once resumes PO intake Interstitial lung disease currently on high-flow oxygen titrate oxygen as appropriately NPO pending swallow eval Full code VTE prophylaxis: holding xarelto Quality Stroke Does the patient have a stroke diagnosis?: No VTE Prior VTE?: No VTE Risk Level:: Medical - moderate - high VTE Device Contraindication: Treatment Not Indicated VTE Drug Contraindication: N/A - Med Ordered
--- NOTE | 2024-11-21 12:20 | PC.NURSE ---
high flow weaned to 30L at 35% via RT. pt maintaining SPO2 between 94%-95%. pt tolerating transition well. no sob/wob noted. respirations even/unlabored. pt remains in upright position to promote patent airway. plan of care ongoing. call prajapati placed within reach.
--- NOTE | 2024-11-21 14:10 | PC.NURSE ---
pt failed nursing swallow evaluation. pt unable to tolerate first spoonful of water w/o producing a wet cough. admitting provider notified/aware.
[2024-11-21] MEDS: Lactated Ringers 1,000 ML 80 ML IVCONT (14:26)
--- NOTE | 2024-11-21 14:43 | PC.NURSE ---
pt incontinent of urine. bed change/pericare performed. attempted to place [place] catheter/male purewick on pt but pt refused. pt educated on importance to prevent skin breakdown but still refused.
[2024-11-21] MEDS: Enoxaparin Sodium 40 MG/0.4 ML SYRINGE SUBCUT (15:50)
[2024-11-21] MEDS: Acetaminophen 325 MG TABLET 650 MG PO (15:50)
--- NOTE | 2024-11-21 16:01 | PC.NURSE ---
nursing swallow evaluation reassessed. pt tolerated well w/o complications. admitting provider notified/aware. prn tylenol utilized for fever. effectiveness pending. pt incontinent of urine - pericare performed. [place] catheter applied.
--- NOTE | 2024-11-21 16:02 | MHC.CM.PN ---
Addendum entered by Cristal Bro RN 11/21/24 16:12: IMM SENT TO MEDICAL RECORDS. Addendum entered by Cristal Bro RN 11/21/24 16:07: PT IS IN LTC. Original Note: EMR REVIEWED, IMM 11/21/24 DELIVERED TO SON/HCP JANNET AT NUMBER ON FILE, PER DISCUSSION COPY TO BE SENT VIA CERTIFIED MAIL. JANNET REPORTS PT IS A&O AT BASELINE ALTHOUGH DOES HAVE DEMENTIA, AND WAS RECENTLY TX'D AT FACILITY ABOUT A MONTH AGO FOR A UTI AND ASPIRATION PNA, PLAN WILL BE FOR PT TO RETURN TO [facility] ONCE MEDICALLY CLEARED.
[2024-11-21] MEDS: cefTRIAXone sodium 1 GM VIAL IVPUSH (22:09)
[2024-11-22] MEDS: Lactated Ringers 1,000 ML 80 ML IVCONT ×2 (00:06→12:08)
[2024-11-22] MEDS: metroNIDAZOLE/NS 500 MG/100 ML PIGGYBACK 100 MG IV ×3 (05:18→21:27)
[2024-11-22 06:02] LABS: Hematocrit 22.3 % (42.0-52.0); Hemoglobin 7.5 g/dl (14.0-18.0); Mean Corpuscular HGB Conc 33.6 g/dl (31.0-36.0); Mean Corpuscular Hemoglobin 29.6 pg (27.0-33.0); Mean Corpuscular Volume 88.1 fL (80.0-98.0); Mean Platelet Volume 10.9 fL (9.4-12.4); Platelet Count 240 X10*3/uL (160-400); Red Blood Count 2.53 X10*6/uL (4.60-5.80); Red Cell Distribution Width 17.9 % (11.0-16.0); White Blood Count 14.7 X10*3/uL (4.8-10.8)
[2024-11-22 06:09] LABS: Anion Gap 9 (12-20); Blood Urea Nitrogen 36 mg/dL (9-16); Calcium 7.8 mg/dL (8.4-10.2); Carbon Dioxide 23 mmol/L (22-29); Chloride 116 mmol/L (96-108); Creatinine Clr Calc Pharmacy 45.5; Estimated Glomerular Filt Rate > 60; Glucose Random 82 mg/dL (60-115); Potassium 4.2 mmol/L (3.3-5.1); Sodium 144 mmol/L (135-145)
[2024-11-22 07:04] VITALS: BP 127/60; PULSE 61; RESP 18; TEMP 36.7; O2SAT 96
[2024-11-22] MEDS: Cholecalciferol (Vitamin D3) 25 MCG TABLET PO (09:14)
[2024-11-22] MEDS: Metoprolol Tartrate 25 MG TABLET PO ×2 (09:14→21:17)
[2024-11-22] MEDS: Folic Acid 1 MG TABLET PO (09:14)
[2024-11-22] MEDS: Divalproex Sodium 250 MG TABLET.DR PO (09:14)
[2024-11-22] MEDS: 0.9 % Sodium Chloride Flush 3 ML SYRINGE IVFLUSH ×2 (09:14→21:18)
[2024-11-22] MEDS: Ferrous Sulfate 324 MG TABLET.DR PO (09:14)
[2024-11-22] MEDS: Diclofenac Sodium Delayed Rel 75 MG TABLET.DR PO (09:14)
[2024-11-22] MEDS: Docusate Sodium 100 MG CAPSULE 200 MG PO (09:15)
[2024-11-22] MEDS: Clopidogrel Bisulfate 75 MG TABLET PO (09:15)
[2024-11-22] MEDS: Multivitamin TABLET 1 TAB PO (09:15)
[2024-11-22] MEDS: traZODone HCL 25 MG HALFTAB PO (09:15)
--- NOTE | 2024-11-22 10:49 | MHC.SL.SWA ---
Risk of Aspiration Due to: Weak Voice Hx silent aspiration (MBSS 03/2023) Dysphasia Diet Status: UPGRADE from NPO Liquid Consistency and Strategies for Safe Swallow: Liquid Intake Recommendation: [place] Thick Liquid Intake Strategies: No Straws Solid Food Consistency: Dietary Recommendations: Grnd/Mech Altered (NDD2) Oral Medication Intake: Crushed with Puree Please contact the pharmacy regarding appropriate crushable or liquid drug formulations that are available whenever modified delivery is recommended. Compensatory Strategies and Precautions to be Taken for Safe Swallow: Sitting Upright (90 deg) No Straw Small Bites and Sips Alternate Liquids/Solids Rate of Ingestion Change Oral Check Supervision While Eating and Drinking for Safe Swallow: Total Supervision (1:1) Recommendation for Speech: Outpatient Speech Therapy Inpatient Speech Therapy Modified Barium Swallow Study - Inpatient Modified Barium Swallow Study - Outpatient Comment: Pt seen for bedside swallow evaluation. Recommend UPGRADE to NECTAR THICK liquids (No straws) and GROUND solids. Requires 1-1 supervision/assistance to support meals d/t cognitive status. Pills crushed when possible d/t cognitive status and coordination of tongue muscles. Pt's last MBSS was done in March 2023 (silent aspiration on thin liquids, rec: chopped solids & nectar thick, no straws, double swallow). Recommend updated MBSS (inpatient vs. outpatient) d/t ?aspiration PNA, hx silent aspiration, and observed overt s/s aspiration on thin liquids during today's evaluation. Tobias Lopez reports pt's baseline diet as chopped solids, thin liquids, pills whole & independent feed. PRETZEL COOKER to continue to follow to upgrade diet if/when warranted. Pt did not have dentures present during today's PO trials; recommend trials of more advanced solids w/ dentures. Frequency/Duration: M-F Application Security Developer Clinican/Clinical Fellow: No Supervisory Statement: I have reviewed and agree with the student/clinical fellow's documentation: N/A Speech Language Pathologist: Shazia Almonte M.A., CCC-PRETZEL COOKER
[2024-11-22] MEDS: Calcium + Vitamin D 250 MG TABLET PO (11:30)
--- NOTE | 2024-11-22 13:15 | HO.PM.IMPN ---
Subjective Subjective Date of Service: 11/22/24 Interval History: follow up with acute hypoxic resp failure due pneumonia, metabolic encephalopathy d/t uti and hypoxia remains confused, more alert, and passed swallow eval Physical Exam Vital Signs: Vital Signs: Last Vital Signs Temp 98.1 F 11/22/24 07:04 Pulse 61 11/22/24 07:04 Resp 18 11/22/24 07:04 BP 127/60 11/22/24 07:04 Pulse Ox 96 11/22/24 07:04 O2 Del Method Nasal Cannula 11/22/24 07:04 O2 Flow Rate 2 11/22/24 07:04 FiO2 35 11/21/24 12:19 BMI result Body Mass Index 21.2 Const: Other: General: confused no distress Resp: CTA bilateral CVS: S1,S2,RRR GI: +BS, NT, no distention Skin: No rash Neuro: motor grossly intact Psych: appropriate affect Objective Data Active Medications Acetaminophen (Acetaminophen 325 Mg Tablet) 650 mg PO Q4H PRN PRN Reason: pain or fever Last Admin: 11/21/24 15:50 Dose: 650 mg Documented By: ARMAND Atorvastatin Calcium (Atorvastatin Calcium 40 Mg Tablet) 40 mg PO BEDTIME [facility] Last Admin: 11/21/24 22:08 Dose: Not Given Documented By: SERINA Non-Admin Reason: NPO Baclofen (Baclofen 10 Mg Tablet) 10 mg PO Q8H PRN PRN Reason: Spasms Bisacodyl (Bisacodyl 10 Mg Supp.Rect) 10 mg DC DAILY PRN PRN Reason: Constipation Calcium Carbonate (Calcium Carbonate 750 Mg Tab.Chew) 750 mg PO Q4H PRN PRN Reason: Heartburn Calcium Carbonate/Cholecalciferol (Calcium + Vitamin D 250 Mg Tablet) 250 mg PO Q12H [facility] Last Admin: 11/22/24 11:30 Dose: 250 mg Documented By: KELVIN Ceftriaxone Sodium (Ceftriaxone Sodium 1 Gm Vial) 1 gm IVPUSH Q24H [facility] Last Admin: 11/21/24 22:09 Dose: 1 gm Documented By: SERINA Clopidogrel Bisulfate (Clopidogrel Bisulfate 75 Mg Tablet) 75 mg PO DAILY [facility] Last Admin: 11/22/24 09:15 Dose: 75 mg Documented By: KELVIN Diclofenac Sodium (Diclofenac Sodium Delayed Rel 75 Mg Tablet.Dr) 75 mg PO DAILY [facility] Last Admin: 11/22/24 09:14 Dose: 75 mg Documented By: KELVIN Divalproex Sodium (Divalproex Sodium 250 Mg Tablet.) 250 mg PO DAILY [facility] Last Admin: 11/22/24 09:14 Dose: 250 mg Documented By: KELVIN Docusate Sodium (Docusate Sodium 100 Mg Capsule) 200 mg PO DAILY [facility] Last Admin: 11/22/24 09:15 Dose: 200 mg Documented By: KELVIN Doxazosin Mesylate (Doxazosin Mesylate 2 Mg Tablet) 4 mg PO BEDTIME [facility] Last Admin: 11/21/24 22:08 Dose: Not Given Documented By: SERINA Non-Admin Reason: NPO Ferrous Sulfate (Ferrous Sulfate 324 Mg Tablet.) 324 mg PO DAILY [facility] Last Admin: 11/22/24 09:14 Dose: 324 mg Documented By: KELVIN Folic Acid (Folic Acid 1 Mg Tablet) 1 mg PO DAILY [facility] Last Admin: 11/22/24 09:14 Dose: 1 mg Documented By: KELVIN Gabapentin (Gabapentin 100 Mg Capsule) 100 mg PO BEDTIME [facility] Last Admin: 11/21/24 22:09 Dose: Not Given Documented By: SERINA Non-Admin Reason: NPO Guaifenesin (Guaifenesin 200 Mg/10 Ml 10 Ml Liquid) 10 ml PO Q6H PRN PRN Reason: Cough/Congestion Metronidazole (Flagyl) 500 mg in 100 mls @ 100 mls/hr IV Q8H [facility] Last Infusion: 11/22/24 06:19 Dose: Infused Documented By: ANU Lactated Ringer's (Lr) 1,000 mls @ 80 mls/hr IVCONT .[id number] [facility] Last Admin: 11/22/24 12:08 Dose: 80 mls/hr Documented By: KELVIN Loperamide HCl (Loperamide Hcl 2 Mg Capsule) 2 mg PO DAILY PRN PRN Reason: Loose Stool Magnesium Hydroxide (Milk Of Magnesia 30 Ml Oral.Susp) 30 ml PO DAILY PRN PRN Reason: Constipation Melatonin (Melatonin 3 Mg Tablet) 6 mg PO BEDTIME PRN PRN Reason: Insomnia Metoprolol Tartrate (Metoprolol Tartrate 25 Mg Tablet) 25 mg PO BID [facility]; Protocol Last Admin: 11/22/24 09:14 Dose: 25 mg Documented By: KELVIN Mirtazapine (Mirtazapine 15 Mg Tablet) 15 mg PO BEDTIME [facility] Last Admin: 11/21/24 22:09 Dose: Not Given Documented By: SERINA Non-Admin Reason: NPO Multivitamins/Vitamin C (Multivitamin Tablet) 1 tab PO DAILY [facility] Last Admin: 11/22/24 09:15 Dose: 1 tab Documented By: KELVIN Naloxone HCl (Naloxone Hcl 0.4 Mg/Ml Vial) 0.4 mg SUBCUT Q3M PRN PRN Reason: Opiate Reversal Ondansetron HCl (Ondansetron Hcl 4 Mg/2 Ml Vial) 4 mg IVPUSH Q8H PRN PRN Reason: Nausea and Vomiting Pantoprazole Sodium (Pantoprazole Sodium 20 Mg Tablet.Dr) 20 mg PO DAILY@0630 [facility] Last Admin: 11/22/24 05:18 Dose: Not Given Documented By: ANU Non-Admin Reason: NPO Senna (Sennosides 8.6 Mg Tablet) 17.2 mg PO BEDTIME PRN PRN Reason: Constipation Sodium Biphosphate/Sodium Phosphate (Sodium Phosphate,Miner-Dibasic 133 Ml Enema) 118 ml DC DAILY PRN PRN Reason: Constipation Sodium Chloride (0.9 % Sodium Chloride Flush 3 Ml Syringe) 3 ml IVFLUSH QSHIFT [facility] Last Admin: 11/22/24 09:14 Dose: 3 ml Documented By: KELVIN Trazodone HCl (Trazodone Hcl 25 Mg Halftab) 25 mg PO DAILY [facility] Last Admin: 11/22/24 09:15 Dose: 25 mg Documented By: KELVIN Trazodone HCl (Trazodone Hcl 50 Mg Tablet) 50 mg PO BEDTIME [facility] Last Admin: 11/21/24 22:09 Dose: Not Given Documented By: SERINA Non-Admin Reason: NPO Vitamin D (Cholecalciferol (Vitamin D3) 25 Mcg Tablet) 25 mcg PO DAILY [facility] Last Admin: 11/22/24 09:14 Dose: 25 mcg Documented By: KELVIN Labs 11/22/24 05:37 11/22/24 05:37 Labs: Laboratory Results - last 24 hr 11/22/24 05:37 MCV 88.1 MCH 29.6 MCHC 33.6 RDW 17.9 H Plt Count 240 MPV 10.9 Absolute Nucleated RBC 0.000 Nucleated RBC % (auto) 0.0 Anion Gap 9 L Estim Creat Clear Calc 45.5 Estimated GFR > 60 Random Glucose 82 Calcium 7.8 L Microbiology Microbiology Results: Microbiology 11/21/24 00:17 Urine Culture - Preliminary Urine clean catch - Clean Catch Midstream Gram negative vannessa 11/20/24 23:38 Blood Culture - Preliminary Blood - Venous No growth after 24 hours. 11/20/24 23:29 Blood Culture - Preliminary Blood - Venous No growth after 24 hours. Assessment and Plan (1) Acute UTI: Status: Acute (2) Aspiration pneumonia: Status: Acute (3) Acute metabolic encephalopathy: Status: Acute Plan Patient is an 84-year-old male with a past medical history significant for CVA, HTN, dementia, BPH, chronic constipation, CAD, paroxysmal AFib, NSTEMI, interstitial lung disease, who presented via EMS from [facility] due to lethargy, poor p.o. intake and altered mental status with hypotension in the 70s. Acute metabolic encephalopathy secondary to urinary tract infection, treat underlying uti, culture pending, continue ceftriaxone. Acute hypoxic respiratory failure secondary to aspiration pneumonia, he is signficantly hypoxic and requiring highflow Diet per speech recommendation continue Ceftriaxone and Flagyl Normocytic anemia, hemoglobin has dropped today check occult blood, hold anticoagulation follow CBC, check occult blood HARSHA on CKD3, HARSHA resolved with IVF IVF and monitor bmp HTN, hold med to due low bp Paroxysmal AFib, metoprolol, holding xarelto due to drop in h/h, monitor h/h Interstitial lung disease currently on high-flow oxygen titrate oxygen as appropriately NPO pending swallow eval Full code VTE prophylaxis: holding xarelto, compression device Plan of care discussed with son over the phone, Quality Stroke Does the patient have a stroke diagnosis?: No VTE Prior VTE?: No VTE Risk Level:: Medical - moderate - high VTE Device Contraindication: Treatment Not Indicated VTE Drug Contraindication: N/A - Med Ordered
[2024-11-22 15:54] VITALS: BP 123/53; PULSE 53; RESP 18; TEMP 36.5; O2SAT 99
[2024-11-22 19:42] VITALS: BP 145/58; PULSE 59; RESP 18; TEMP 36.6; O2SAT 98
[2024-11-22] MEDS: traZODone HCL 50 MG TABLET PO (21:17)
[2024-11-22] MEDS: Doxazosin Mesylate 2 MG TABLET 4 MG PO (21:17)
[2024-11-22] MEDS: Gabapentin 100 MG CAPSULE PO (21:17)
[2024-11-22] MEDS: Atorvastatin Calcium 40 MG TABLET PO (21:17)
[2024-11-22] MEDS: Mirtazapine 15 MG TABLET PO (21:17)
[2024-11-22] MEDS: cefTRIAXone sodium 1 GM VIAL IVPUSH (21:18)
[2024-11-22 23:38] VITALS: BP 133/60; PULSE 58; RESP 16; TEMP 36.4; O2SAT 98
[2024-11-23] MEDS: Lactated Ringers 1,000 ML 80 ML IVCONT (00:51)
[2024-11-23] MEDS: Calcium + Vitamin D 250 MG TABLET PO ×2 (00:52→12:03)
[2024-11-23] MEDS: metroNIDAZOLE/NS 500 MG/100 ML PIGGYBACK 100 MG IV ×3 (05:46→22:24)
[2024-11-23 07:58] VITALS: BP 152/66; PULSE 63; RESP 18; TEMP 36.8; O2SAT 99
[2024-11-23] MEDS: Metoprolol Tartrate 25 MG TABLET PO ×2 (08:03→21:00)
[2024-11-23] MEDS: Diclofenac Sodium Delayed Rel 75 MG TABLET.DR PO (08:03)
[2024-11-23] MEDS: Clopidogrel Bisulfate 75 MG TABLET PO (08:04)
[2024-11-23] MEDS: Cholecalciferol (Vitamin D3) 25 MCG TABLET PO (08:04)
[2024-11-23] MEDS: Folic Acid 1 MG TABLET PO (08:04)
[2024-11-23] MEDS: Ferrous Sulfate 324 MG TABLET.DR PO (08:04)
[2024-11-23] MEDS: traZODone HCL 25 MG HALFTAB PO (08:04)
[2024-11-23] MEDS: Multivitamin TABLET 1 TAB PO (08:04)
[2024-11-23] MEDS: Docusate Sodium 100 MG CAPSULE 200 MG PO (08:04)
[2024-11-23] MEDS: Divalproex Sodium 250 MG TABLET.DR PO (08:04)
[2024-11-23] MEDS: 0.9 % Sodium Chloride Flush 3 ML SYRINGE IVFLUSH ×3 (08:10→20:59)
[2024-11-23 08:36] LABS: Hematocrit 22.3 % (42.0-52.0); Hemoglobin 7.5 g/dl (14.0-18.0); Mean Corpuscular HGB Conc 33.6 g/dl (31.0-36.0); Mean Corpuscular Hemoglobin 29.6 pg (27.0-33.0); Mean Corpuscular Volume 88.1 fL (80.0-98.0); Platelet Count 255 X10*3/uL (160-400); Red Blood Count 2.53 X10*6/uL (4.60-5.80); Red Cell Distribution Width 17.8 % (11.0-16.0); White Blood Count 14.7 X10*3/uL (4.8-10.8)
[2024-11-23 08:50] LABS: Anion Gap 8 (12-20); Blood Urea Nitrogen 34 mg/dL (9-16); Calcium 7.9 mg/dL (8.4-10.2); Carbon Dioxide 24 mmol/L (22-29); Chloride 115 mmol/L (96-108); Creatinine Clr Calc Pharmacy 45.5; Estimated Glomerular Filt Rate > 60; Glucose Random 120 mg/dL (60-115); Potassium 3.5 mmol/L (3.3-5.1); Sodium 143 mmol/L (135-145)
--- NOTE | 2024-11-23 09:19 | P.PNIM_ITS ---
Subjective Subjective Date of Service: 11/23/24 Interval History: follow up with acute hypoxic resp failure due pneumonia, metabolic encephalopathy d/t uti and hypoxia remains confused, but alert Physical Exam 2 Vital Signs: Vital Signs: Last Vital Signs Temp 98.2 F 11/23/24 07:58 Pulse 63 11/23/24 07:58 Resp 18 11/23/24 07:58 BP 152/66 H 11/23/24 07:58 Pulse Ox 99 11/23/24 07:58 O2 Del Method Nasal Cannula 11/23/24 07:58 O2 Flow Rate 3 11/23/24 07:58 FiO2 35 11/21/24 12:19 BMI result Body Mass Index 21.2 Const: Other: General: confused no distress Resp: CTA bilateral CVS: S1,S2,RRR GI: +BS, NT, no distention Skin: No rash Neuro: motor grossly intact Psych: appropriate affect Objective Data Active Medications Acetaminophen (Acetaminophen 325 Mg Tablet) 650 mg PO Q4H PRN PRN Reason: pain or fever Last Admin: 11/21/24 15:50 Dose: 650 mg Documented By: ARMAND Atorvastatin Calcium (Atorvastatin Calcium 40 Mg Tablet) 40 mg PO BEDTIME [facility] Last Admin: 11/22/24 21:17 Dose: 40 mg Documented By: SARA Baclofen (Baclofen 10 Mg Tablet) 10 mg PO Q8H PRN PRN Reason: Spasms Bisacodyl (Bisacodyl 10 Mg Supp.Rect) 10 mg MA DAILY PRN PRN Reason: Constipation Calcium Carbonate (Calcium Carbonate 750 Mg Tab.Chew) 750 mg PO Q4H PRN PRN Reason: Heartburn Calcium Carbonate/Cholecalciferol (Calcium + Vitamin D 250 Mg Tablet) 250 mg PO Q12H [facility] Last Admin: 11/23/24 00:52 Dose: 250 mg Documented By: SARA Ceftriaxone Sodium (Ceftriaxone Sodium 1 Gm Vial) 1 gm IVPUSH Q24H [facility] Last Admin: 11/22/24 21:18 Dose: 1 gm Documented By: SARA Clopidogrel Bisulfate (Clopidogrel Bisulfate 75 Mg Tablet) 75 mg PO DAILY [facility] Last Admin: 11/23/24 08:04 Dose: 75 mg Documented By: SATURNINO Diclofenac Sodium (Diclofenac Sodium Delayed Rel 75 Mg Tablet.Dr) 75 mg PO DAILY [facility] Last Admin: 11/23/24 08:03 Dose: 75 mg Documented By: SATURNINO Divalproex Sodium (Divalproex Sodium 250 Mg Tablet.) 250 mg PO DAILY [facility] Last Admin: 11/23/24 08:04 Dose: 250 mg Documented By: SATURNINO Docusate Sodium (Docusate Sodium 100 Mg Capsule) 200 mg PO DAILY [facility] Last Admin: 11/23/24 08:04 Dose: 200 mg Documented By: SATURNINO Doxazosin Mesylate (Doxazosin Mesylate 2 Mg Tablet) 4 mg PO BEDTIME [facility] Last Admin: 11/22/24 21:17 Dose: 4 mg Documented By: SARA Ferrous Sulfate (Ferrous Sulfate 324 Mg Tablet.) 324 mg PO DAILY [facility] Last Admin: 11/23/24 08:04 Dose: 324 mg Documented By: SATURNINO Folic Acid (Folic Acid 1 Mg Tablet) 1 mg PO DAILY [facility] Last Admin: 11/23/24 08:04 Dose: 1 mg Documented By: SATURNINO Gabapentin (Gabapentin 100 Mg Capsule) 100 mg PO BEDTIME [facility] Last Admin: 11/22/24 21:17 Dose: 100 mg Documented By: SARA Guaifenesin (Guaifenesin 200 Mg/10 Ml 10 Ml Liquid) 10 ml PO Q6H PRN PRN Reason: Cough/Congestion Metronidazole (Flagyl) 500 mg in 100 mls @ 100 mls/hr IV Q8H [facility] Last Infusion: 11/23/24 08:10 Dose: Infused Documented By: SATURNINO Loperamide HCl (Loperamide Hcl 2 Mg Capsule) 2 mg PO DAILY PRN PRN Reason: Loose Stool Magnesium Hydroxide (Milk Of Magnesia 30 Ml Oral.Susp) 30 ml PO DAILY PRN PRN Reason: Constipation Melatonin (Melatonin 3 Mg Tablet) 6 mg PO BEDTIME PRN PRN Reason: Insomnia Metoprolol Tartrate (Metoprolol Tartrate 25 Mg Tablet) 25 mg PO BID [facility]; Protocol Last Admin: 11/23/24 08:03 Dose: 25 mg Documented By: SATURNINO Mirtazapine (Mirtazapine 15 Mg Tablet) 15 mg PO BEDTIME [facility] Last Admin: 11/22/24 21:17 Dose: 15 mg Documented By: SARA Multivitamins/Vitamin C (Multivitamin Tablet) 1 tab PO DAILY [facility] Last Admin: 11/23/24 08:04 Dose: 1 tab Documented By: SATURNINO Naloxone HCl (Naloxone Hcl 0.4 Mg/Ml Vial) 0.4 mg SUBCUT Q3M PRN PRN Reason: Opiate Reversal Ondansetron HCl (Ondansetron Hcl 4 Mg/2 Ml Vial) 4 mg IVPUSH Q8H PRN PRN Reason: Nausea and Vomiting Pantoprazole Sodium (Pantoprazole Sodium 20 Mg Tablet.) 20 mg PO DAILY@0630 [facility] Last Admin: 11/23/24 05:50 Dose: Not Given Documented By: SARA Non-Admin Reason: wont swallow Senna (Sennosides 8.6 Mg Tablet) 17.2 mg PO BEDTIME PRN PRN Reason: Constipation Sodium Biphosphate/Sodium Phosphate (Sodium Phosphate,[place]ills-Dibasic 133 Ml Enema) 118 ml MA DAILY PRN PRN Reason: Constipation Sodium Chloride (0.9 % Sodium Chloride Flush 3 Ml Syringe) 3 ml IVFLUSH QSHIFT [facility] Last Admin: 11/23/24 08:10 Dose: 3 ml Documented By: SATURNINO Trazodone HCl (Trazodone Hcl 25 Mg Halftab) 25 mg PO DAILY [facility] Last Admin: 11/23/24 08:04 Dose: 25 mg Documented By: SATURNINO Trazodone HCl (Trazodone Hcl 50 Mg Tablet) 50 mg PO BEDTIME [facility] Last Admin: 11/22/24 21:17 Dose: 50 mg Documented By: SARA Vitamin D (Cholecalciferol (Vitamin D3) 25 Mcg Tablet) 25 mcg PO DAILY [facility] Last Admin: 11/23/24 08:04 Dose: 25 mcg Documented By: SATURNINO Labs 11/23/24 08:20 11/23/24 08:20 Labs: Laboratory Results - last 24 hr 11/23/24 08:20 MCV 88.1 MCH 29.6 MCHC 33.6 RDW 17.8 H Plt Count 255 MPV 11.0 Absolute Nucleated RBC 0.000 Nucleated RBC % (auto) 0.0 Anion Gap 8 L Estim Creat Clear Calc 45.5 Estimated GFR > 60 Random Glucose 120 H Calcium 7.9 L Microbiology Microbiology Results: Microbiology 11/21/24 00:17 Urine Culture - Final Urine clean catch - Clean Catch Midstream Escherichia coli 11/20/24 23:38 Blood Culture - Preliminary Blood - Venous No growth after 48 hours. 11/20/24 23:29 Blood Culture - Preliminary Blood - Venous No growth after 48 hours. Assessment and Plan (1) Acute UTI: Status: Acute (2) Aspiration pneumonia: Status: Acute (3) Acute metabolic encephalopathy: Status: Acute Plan Patient is an 84-year-old male with a past medical history significant for CVA, HTN, dementia, BPH, chronic constipation, CAD, paroxysmal AFib, NSTEMI, interstitial lung disease, who presented via EMS from [facility] due to lethargy, poor p.o. intake and altered mental status with hypotension in the 70s. Acute metabolic encephalopathy secondary to urinary tract infection, treat underlying uti, culture = E.coli sensitive to ceftriaxone. Acute hypoxic respiratory failure secondary to aspiration pneumonia, much improved, off highflow, continue weaning off 2 Diet per speech recommendation continue Ceftriaxone and Flagyl Normocytic anemia, hemoglobin has dropped but stable check occult blood, hold anticoagulation follow CBC HARSHA on CKD3, HARSHA resolved with IVF, HARSHA resolved. stop ivf HTN, BP o high side, resume BP meds Paroxysmal AFib, metoprolol, holding xarelto due to drop in h/h, monitor h/h Interstitial lung disease currently on high-flow oxygen titrate oxygen as appropriately NPO pending swallow eval Full code VTE prophylaxis: holding xarelto, compression device Plan of care discussed with son over the phone, Quality Stroke Does the patient have a stroke diagnosis?: No VTE Prior VTE?: No VTE Risk Level:: Medical - moderate - high VTE Device Contraindication: Treatment Not Indicated VTE Drug Contraindication: N/A - Med Ordered
[2024-11-23 10:44] VITALS: PULSE 49; O2SAT 95
--- NOTE | 2024-11-23 12:40 | MHC.SL.SWA ---
Speech Pathologist Impression: Mild oropharyngel dysphagia d/t missing dentition, anterior loss of thins, delayed pharyngeal swallow Risk of Aspiration Due to: Weak Voice Dysphasia Diet Status: Pt is an 83 year old male who is a LTC resident at [facility]. Pt?s PMH is significant for CVA and GERD, among others. Pt was seen by MALT SPECIFICATIONS CONTROL ASSISTANT during inpatient stay in January 2023 when admitted for acute encephalopathy d/t UTI vs. PNA. At the time, his reported baseline diet was unmodified (regular solids, thin liquids). He was discharged on MALT SPECIFICATIONS CONTROL ASSISTANT recommendation for pureed solids and continued ST services at SNF. Per paperwork which was brought w/ the patient, he has been on aspiration precautions at the living facility. Liquid Consistency and Strategies for Safe Swallow: Liquid Intake Recommendation: [place] Thick Liquid Intake Strategies: Small Sips Solid Food Consistency: Dietary Recommendations: Grnd/Mech Altered (NDD2) Additional Modifications to Solid Foods: Patient will continue to benefit from direct supervision during meal with some cuing to alternate bites of food with sips of liquid, and management of any spills. Oral Medication Intake: Crushed with Puree Please contact the pharmacy regarding appropriate crushable or liquid drug formulations that are available whenever modified delivery is recommended. Compensatory Strategies and Precautions to be Taken for Safe Swallow: Sitting Upright (90 deg) Small Bites and Sips Alternate Liquids/Solids Rate of Ingestion Change Oral Check Supervision While Eating and Drinking for Safe Swallow: Total Assistance (1:1) Foods to Avoid: Avoid: hard to chew, tough solids; dry foods; sticky or crunchy textures; mixed consistencies; foods that break up into small pieces (rice, popcorn, nuts) Swallowing Recommended Treatments: Compens. Strategy Educat. Recommendation for Speech: Outpatient Speech Therapy Inpatient Speech Therapy Modified Barium Swallow Study - Inpatient Modified Barium Swallow Study - Outpatient Comment: Pt seen for dysphagia treatment, pt alert and communicative, expressed disagreement with thickened liquids. Thins trialed by cup sips, pt presents with mild anterior loss d/t labial weakness, delayed trigger of pharyngeal swallow and wet voicing s/p deglutition over course of several sips of thins. Pt tolerated nectar thickened liquids without overt s/s of aspiration. MALT SPECIFICATIONS CONTROL ASSISTANT provided education on purpose of thickened liquids in preventing aspiration, d/t slowed coordination of oropharyngeal musculature. Pt expressed disbelief that swallowing difficulties could occur, but eventually conveyed his understanding and told MALT SPECIFICATIONS CONTROL ASSISTANT 'you have enlightened me'. 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 Frequency/Duration: M-F Date Range for Service Req: Timeline to reassess: Restorative Rehab Aide Clinican/Clinical Fellow: No Supervisory Statement: I have reviewed and agree with the student/clinical fellow's documentation: N/A Speech Language Pathologist: Adwoa Parikh M.S., CCC-MALT SPECIFICATIONS CONTROL ASSISTANT
[2024-11-23 15:10] VITALS: BP 163/69; PULSE 59; RESP 18; TEMP 36.6; O2SAT 96
--- NOTE | 2024-11-23 15:27 | MHC.CM.PN ---
EMR REVIEWED AND PER MD ROUNDS, PT IS NOT MEDICALLY CLEARED FOR DC (WEANING OFF 02) [facility] UPDATED VIA [facility], WILL RETURN ON DC. CM WILL CONTINUE TO FOLLOW
[2024-11-23] MEDS: Acetaminophen 325 MG TABLET 650 MG PO (15:53)
[2024-11-23 19:48] VITALS: BP 146/65; PULSE 60; RESP 18; TEMP 36.3; O2SAT 95
[2024-11-23 21:00] VITALS: BP 146/65; PULSE 60
[2024-11-23] MEDS: Gabapentin 100 MG CAPSULE PO (21:00)
[2024-11-23] MEDS: Atorvastatin Calcium 40 MG TABLET PO (21:00)
[2024-11-23] MEDS: Mirtazapine 15 MG TABLET PO (21:00)
[2024-11-23] MEDS: Doxazosin Mesylate 2 MG TABLET 4 MG PO (21:00)
[2024-11-23] MEDS: traZODone HCL 50 MG TABLET PO (21:00)
[2024-11-23] MEDS: cefTRIAXone sodium 1 GM VIAL IVPUSH (21:00)
[2024-11-24] MEDS: Calcium + Vitamin D 250 MG TABLET PO ×2 (00:30→11:45)
[2024-11-24 02:35] VITALS: BP 154/82; PULSE 65; RESP 18; TEMP 36.7; O2SAT 94
[2024-11-24] MEDS: metroNIDAZOLE/NS 500 MG/100 ML PIGGYBACK 100 MG IV ×2 (05:44→13:42)
[2024-11-24] MEDS: Pantoprazole Sodium 20 MG TABLET.DR PO (05:45)
--- NOTE | 2024-11-24 05:55 | PC.NURSE ---
Pt was incont of pasty to loose stool 2x,care rendered, scrotal area red and irritated, protective cream applied, will cont to monitor BM.
[2024-11-24 08:18] VITALS: BP 138/67; PULSE 79; RESP 18; TEMP 36.4; O2SAT 97
[2024-11-24] MEDS: 0.9 % Sodium Chloride Flush 3 ML SYRINGE IVFLUSH ×2 (08:41→15:26)
[2024-11-24] MEDS: traZODone HCL 25 MG HALFTAB PO (08:41)
[2024-11-24] MEDS: Cholecalciferol (Vitamin D3) 25 MCG TABLET PO (08:42)
[2024-11-24] MEDS: Folic Acid 1 MG TABLET PO (08:42)
[2024-11-24] MEDS: Divalproex Sodium 250 MG TABLET.DR PO (08:42)
[2024-11-24] MEDS: Metoprolol Tartrate 25 MG TABLET PO ×2 (08:42→20:13)
[2024-11-24] MEDS: Ferrous Sulfate 324 MG TABLET.DR PO (08:42)
[2024-11-24] MEDS: Diclofenac Sodium Delayed Rel 75 MG TABLET.DR PO (08:42)
[2024-11-24] MEDS: Multivitamin TABLET 1 TAB PO (08:42)
[2024-11-24] MEDS: Clopidogrel Bisulfate 75 MG TABLET PO (08:42)
[2024-11-24 10:25] LABS: Hematocrit 26.4 % (42.0-52.0); Mean Corpuscular HGB Conc 34.1 g/dl (31.0-36.0); Mean Platelet Volume 10.6 fL (9.4-12.4); Platelet Count 229 X10*3/uL (160-400); Red Cell Distribution Width 17.8 % (11.0-16.0); White Blood Count 12.1 X10*3/uL (4.8-10.8)
[2024-11-24 11:23] LABS: OBS Int Ctl Valid YES; OBS1 NEGATIVE (NEGATIVE)
[2024-11-24] MEDS: Loperamide HCl 2 MG CAPSULE PO (11:45)
[2024-11-24 12:00] VITALS: BP 118/64; PULSE 65; RESP 18; TEMP 36.6; O2SAT 94
--- NOTE | 2024-11-24 12:04 | HO.PM.IMPN ---
Subjective Subjective Date of Service: 11/24/24 Interval History: follow up with acute hypoxic resp failure due pneumonia, metabolic encephalopathy d/t uti and hypoxia remains confused, a bit more lethargic today than yesterday, ate little and RN reporting diarrhea Physical Exam Vital Signs: Vital Signs: Last Vital Signs Temp 97.6 F 11/24/24 08:18 Pulse 79 11/24/24 08:18 Resp 18 11/24/24 08:18 BP 138/67 11/24/24 08:18 Pulse Ox 97 11/24/24 08:18 O2 Del Method Room Air 11/24/24 08:18 O2 Flow Rate 3 11/23/24 07:58 FiO2 35 11/21/24 12:19 BMI result Body Mass Index 21.2 Const: Other: General: confused no distress Resp: CTA bilateral CVS: S1,S2,RRR GI: +BS, NT, no distention Skin: No rash Neuro: motor grossly intact Psych: appropriate affect Objective Data Active Medications Acetaminophen (Acetaminophen 325 Mg Tablet) 650 mg PO Q4H PRN PRN Reason: pain or fever Last Admin: 11/23/24 15:53 Dose: 650 mg Documented By: SATURNINO Atorvastatin Calcium (Atorvastatin Calcium 40 Mg Tablet) 40 mg PO BEDTIME [facility] Last Admin: 11/23/24 21:00 Dose: 40 mg Documented By: JENN Baclofen (Baclofen 10 Mg Tablet) 10 mg PO Q8H PRN PRN Reason: Spasms Bisacodyl (Bisacodyl 10 Mg Supp.Rect) 10 mg SD DAILY PRN PRN Reason: Constipation Calcium Carbonate (Calcium Carbonate 750 Mg Tab.Chew) 750 mg PO Q4H PRN PRN Reason: Heartburn Calcium Carbonate/Cholecalciferol (Calcium + Vitamin D 250 Mg Tablet) 250 mg PO Q12H [facility] Last Admin: 11/24/24 11:45 Dose: 250 mg Documented By: SD Ceftriaxone Sodium (Ceftriaxone Sodium 1 Gm Vial) 1 gm IVPUSH Q24H [facility] Last Admin: 11/23/24 21:00 Dose: 1 gm Documented By: JENN Clopidogrel Bisulfate (Clopidogrel Bisulfate 75 Mg Tablet) 75 mg PO DAILY [facility] Last Admin: 11/24/24 08:42 Dose: 75 mg Documented By: SD Diclofenac Sodium (Diclofenac Sodium Delayed Rel 75 Mg Tablet.Dr) 75 mg PO DAILY [facility] Last Admin: 11/24/24 08:42 Dose: 75 mg Documented By: SD Divalproex Sodium (Divalproex Sodium 250 Mg Tablet.) 250 mg PO DAILY [facility] Last Admin: 11/24/24 08:42 Dose: 250 mg Documented By: SD Docusate Sodium (Docusate Sodium 100 Mg Capsule) 200 mg PO DAILY [facility] Last Admin: 11/24/24 08:44 Dose: Not Given Documented By: SD Non-Admin Reason: loose stools Doxazosin Mesylate (Doxazosin Mesylate 2 Mg Tablet) 4 mg PO BEDTIME [facility] Last Admin: 11/23/24 21:00 Dose: 4 mg Documented By: JENN Ferrous Sulfate (Ferrous Sulfate 324 Mg Tablet.) 324 mg PO DAILY [facility] Last Admin: 11/24/24 08:42 Dose: 324 mg Documented By: SD Folic Acid (Folic Acid 1 Mg Tablet) 1 mg PO DAILY [facility] Last Admin: 11/24/24 08:42 Dose: 1 mg Documented By: SD Gabapentin (Gabapentin 100 Mg Capsule) 100 mg PO BEDTIME [facility] Last Admin: 11/23/24 21:00 Dose: 100 mg Documented By: JENN Guaifenesin (Guaifenesin 200 Mg/10 Ml 10 Ml Liquid) 10 ml PO Q6H PRN PRN Reason: Cough/Congestion Metronidazole (Flagyl) 500 mg in 100 mls @ 100 mls/hr IV Q8H [facility] Last Infusion: 11/24/24 06:42 Dose: Infused Documented By: JENN Loperamide HCl (Loperamide Hcl 2 Mg Capsule) 2 mg PO DAILY PRN PRN Reason: Loose Stool Last Admin: 11/24/24 11:45 Dose: 2 mg Documented By: SD Magnesium Hydroxide (Milk Of Magnesia 30 Ml Oral.Susp) 30 ml PO DAILY PRN PRN Reason: Constipation Melatonin (Melatonin 3 Mg Tablet) 6 mg PO BEDTIME PRN PRN Reason: Insomnia Metoprolol Tartrate (Metoprolol Tartrate 25 Mg Tablet) 25 mg PO BID [facility]; Protocol Last Admin: 11/24/24 08:42 Dose: 25 mg Documented By: SD Mirtazapine (Mirtazapine 15 Mg Tablet) 15 mg PO BEDTIME [facility] Last Admin: 11/23/24 21:00 Dose: 15 mg Documented By: JENN Multivitamins/Vitamin C (Multivitamin Tablet) 1 tab PO DAILY [facility] Last Admin: 11/24/24 08:42 Dose: 1 tab Documented By: SD Naloxone HCl (Naloxone Hcl 0.4 Mg/Ml Vial) 0.4 mg SUBCUT Q3M PRN PRN Reason: Opiate Reversal Ondansetron HCl (Ondansetron Hcl 4 Mg/2 Ml Vial) 4 mg IVPUSH Q8H PRN PRN Reason: Nausea and Vomiting Pantoprazole Sodium (Pantoprazole Sodium 20 Mg Tablet.Dr) 20 mg PO DAILY@0630 [facility] Last Admin: 11/24/24 05:45 Dose: 20 mg Documented By: JENN Senna (Sennosides 8.6 Mg Tablet) 17.2 mg PO BEDTIME PRN PRN Reason: Constipation Sodium Biphosphate/Sodium Phosphate (Sodium Phosphate,Bandera-Dibasic 133 Ml Enema) 118 ml SD DAILY PRN PRN Reason: Constipation Sodium Chloride (0.9 % Sodium Chloride Flush 3 Ml Syringe) 3 ml IVFLUSH QSHIFT [facility] Last Admin: 11/24/24 08:41 Dose: 3 ml Documented By: SD Trazodone HCl (Trazodone Hcl 25 Mg Halftab) 25 mg PO DAILY [facility] Last Admin: 11/24/24 08:41 Dose: 25 mg Documented By: SD Trazodone HCl (Trazodone Hcl 50 Mg Tablet) 50 mg PO BEDTIME [facility] Last Admin: 11/23/24 21:00 Dose: 50 mg Documented By: JENN Vitamin D (Cholecalciferol (Vitamin D3) 25 Mcg Tablet) 25 mcg PO DAILY [facility] Last Admin: 11/24/24 08:42 Dose: 25 mcg Documented By: SD Labs 11/24/24 10:01 11/23/24 08:20 Labs: Laboratory Results - last 24 hr 11/24/24 11/24/24 10:01 10:55 MCV 88.0 MCH 30.0 MCHC 34.1 RDW 17.8 H Plt Count 229 MPV 10.6 Absolute Nucleated RBC 0.000 Nucleated RBC % (auto) 0.0 Stool Occult Blood NEGATIVE Assessment and Plan (1) Acute UTI: Status: Acute (2) Aspiration pneumonia: Status: Acute (3) Acute metabolic encephalopathy: Status: Acute Plan Patient is an 84-year-old male with a past medical history significant for CVA, HTN, dementia, BPH, chronic constipation, CAD, paroxysmal AFib, NSTEMI, interstitial lung disease, who presented via EMS from [facility] due to lethargy, poor p.o. intake and altered mental status with hypotension in the 70s. Acute metabolic encephalopathy secondary to urinary tract infection, treat underlying uti, culture = E.coli sensitive to ceftriaxone. Acute hypoxic respiratory failure secondary to aspiration pneumonia, much improved, off highflow, continue weaning off 2 Diet per speech recommendation continue Ceftriaxone and Flagyl Normocytic anemia, hemoglobin has dropped but stable check occult blood, hold anticoagulation follow CBC HARSHA on CKD3, HARSHA resolved with IVF, HARSHA resolved. stop ivf HTN, BP o high side, resume BP meds Paroxysmal AFib, metoprolol, holding xarelto due to drop in h/h, monitor h/h Interstitial lung disease currently on high-flow oxygen titrate oxygen as appropriately Diarrhea, check cdif Full code VTE prophylaxis: consider restarting xarelto, given h/h stalbe, occult blood was negative Plan of care discussed with son over the phone, Quality Stroke Does the patient have a stroke diagnosis?: No VTE Prior VTE?: No VTE Risk Level:: Medical - moderate - high VTE Device Contraindication: Treatment Not Indicated VTE Drug Contraindication: N/A - Med Ordered
[2024-11-24 13:05] LABS: CDiff Gene PCR NEGATIVE (Negative)
[2024-11-24 13:40] LABS: Anion Gap 10 (12-20); Blood Urea Nitrogen 24 mg/dL (9-16); Carbon Dioxide 24 mmol/L (22-29); Chloride 113 mmol/L (96-108); Creatinine Clr Calc Pharmacy 46.4; Estimated Glomerular Filt Rate > 60; Glucose Random 114 mg/dL (60-115); Potassium 3.6 mmol/L (3.3-5.1); Sodium 143 mmol/L (135-145)
--- NOTE | 2024-11-24 13:52 | MHC.SL.SWA ---
Speech Pathologist Impression: Risk of Aspiration, MBSS 03/2023 showing silent aspiration on thin liquid Risk of Aspiration Due to: Weak Voice Dysphasia Diet Status: No Change Liquid Consistency and Strategies for Safe Swallow: Liquid Intake Recommendation: [place] Thick Liquid Intake Strategies: Small Sips Solid Food Consistency: Dietary Recommendations: Grnd/Mech Altered (NDD2) Additional Modifications to Solid Foods: Patient will continue to benefit from direct supervision during meal with some cuing to alternate bites of food with sips of liquid, and management of any spills. Oral Medication Intake: Crushed with Puree Please contact the pharmacy regarding appropriate crushable or liquid drug formulations that are available whenever modified delivery is recommended. Compensatory Strategies and Precautions to be Taken for Safe Swallow: Sitting Upright (90 deg) Small Bites and Sips Alternate Liquids/Solids Rate of Ingestion Change Oral Check Supervision While Eating and Drinking for Safe Swallow: Total Assistance (1:1) Foods to Avoid: Avoid: hard to chew, tough solids; dry foods; sticky or crunchy textures; mixed consistencies; foods that break up into small pieces (rice, popcorn, nuts) Swallowing Recommended Treatments: Compens. Strategy Educat. Recommendation for Speech: Inpatient Speech Therapy Frequency/Duration: M-F Date Range for Service Req: Timeline to reassess: Inspector Optical Instrument Clinican/Clinical Fellow: No Supervisory Statement: I have reviewed and agree with the student/clinical fellow's documentation: N/A Speech Language Pathologist: Deb Lucio M.A., CCC-BATTALION FIRE CHIEF
[2024-11-24 19:18] VITALS: BP 139/65; PULSE 75; RESP 18; TEMP 36.7; O2SAT 95
[2024-11-24] MEDS: metroNIDAZOLE 500 MG TABLET PO (20:13)
[2024-11-24] MEDS: Doxazosin Mesylate 2 MG TABLET 4 MG PO (20:13)
[2024-11-24] MEDS: Gabapentin 100 MG CAPSULE PO (20:13)
[2024-11-24] MEDS: Atorvastatin Calcium 40 MG TABLET PO (20:13)
[2024-11-24] MEDS: Mirtazapine 15 MG TABLET PO (20:13)
[2024-11-24] MEDS: traZODone HCL 50 MG TABLET PO (20:13)
[2024-11-24] MEDS: cefTRIAXone sodium 1 GM VIAL IVPUSH (20:14)
[2024-11-25] MEDS: 0.9 % Sodium Chloride Flush 3 ML SYRINGE IVFLUSH ×3 (00:23→15:51)
[2024-11-25 03:19] VITALS: BP 151/96; PULSE 62; RESP 18; TEMP 36.5; O2SAT 96
[2024-11-25] MEDS: Pantoprazole Sodium 20 MG TABLET.DR PO (06:43)
[2024-11-25 08:06] VITALS: BP 150/67; PULSE 68; RESP 18; TEMP 36.3; O2SAT 94
[2024-11-25] MEDS: traZODone HCL 25 MG HALFTAB PO (08:30)
[2024-11-25] MEDS: metroNIDAZOLE 500 MG TABLET PO ×2 (08:31→14:00)
[2024-11-25] MEDS: Cholecalciferol (Vitamin D3) 25 MCG TABLET PO (08:31)
[2024-11-25] MEDS: Multivitamin TABLET 1 TAB PO (08:31)
[2024-11-25] MEDS: Divalproex Sodium 250 MG TABLET.DR PO (08:32)
[2024-11-25] MEDS: Metoprolol Tartrate 25 MG TABLET PO (08:32)
[2024-11-25] MEDS: Clopidogrel Bisulfate 75 MG TABLET PO (08:33)
[2024-11-25] MEDS: Ferrous Sulfate 324 MG TABLET.DR PO (08:33)
[2024-11-25] MEDS: Folic Acid 1 MG TABLET PO (08:33)
[2024-11-25 09:35] LABS: Hematocrit 22.9 % (42.0-52.0); Hemoglobin 7.8 g/dl (14.0-18.0); Mean Corpuscular HGB Conc 34.1 g/dl (31.0-36.0); Mean Corpuscular Hemoglobin 29.3 pg (27.0-33.0); Mean Corpuscular Volume 86.1 fL (80.0-98.0); Mean Platelet Volume 10.5 fL (9.4-12.4); Platelet Count 242 X10*3/uL (160-400); Red Blood Count 2.66 X10*6/uL (4.60-5.80); Red Cell Distribution Width 17.7 % (11.0-16.0); White Blood Count 8.9 X10*3/uL (4.8-10.8)
[2024-11-25 09:51] LABS: Anion Gap 9 (12-20); Blood Urea Nitrogen 20 mg/dL (9-16); Calcium 7.8 mg/dL (8.4-10.2); Carbon Dioxide 24 mmol/L (22-29); Chloride 113 mmol/L (96-108); Creatinine Clr Calc Pharmacy 49.2; Estimated Glomerular Filt Rate > 60; Glucose Random 119 mg/dL (60-115); Potassium 3.5 mmol/L (3.3-5.1); Sodium 142 mmol/L (135-145)
[2024-11-25 11:34] VITALS: BP 136/73; PULSE 64; RESP 17; TEMP 36.1; O2SAT 96
--- NOTE | 2024-11-25 13:05 | P.DS_ITS ---
DS: Providers Provider Date of Service: 11/25/24 Date of admission: 11/21/24 03:50 Date of discharge: 11/25/24 Primary care physician: Cole Pete MD DS: Diagnosis Discharge Diagnosis (1) Acute UTI: Status: Acute (2) Aspiration pneumonia: Status: Acute (3) Acute metabolic encephalopathy: Status: Acute DS: Summary Hospital Course Hospital Course: Admission Chief Complaint: lethargy, AMS, hypotensive Patient is an 84-year-old male with a past medical history significant for CVA, HTN, dementia, BPH, chronic constipation, CAD, paroxysmal AFib, NSTEMI, interstitial lung disease, who presented via EMS from [facility] due to lethargy, poor p.o. intake and altered mental status with hypotension in the 70s. He was given 250 mL IV fluid by EMS with improvement into the 100s systolic. Due to altered mental status patient is a poor historian. He denies abdominal pain, urinary symptoms including frequency, urgency or dysuria. He also denies any nausea or vomiting but had an episode of vomiting in the ED, resulting in aspiration pneumonia. He is now requiring high-flow oxygen. hospital course: Patient is an 84-year-old male with a past medical history significant for CVA, HTN, dementia, BPH, chronic constipation, CAD, paroxysmal AFib on xarelto, NSTEMI, and interstitial lung disease, who presented via EMS from [facility] due to lethargy, poor PO intake, and altered mental status with hypotension in the 70s, work up revealed metabolic encephalopathy, UTI and aspiration with acute hypoxic respriatory failure, and acute on chronic anemia Acute metabolic encephalopathy secondary to urinary tract infection, treated underlying UTI, culture positive for E. coli sensitive to ceftriaxone. Will transition to oral Ceftin at discharge Acute hypoxic respiratory failure secondary to aspiration pneumonia, much improved, Initially required Highflow O2, then transitioned to nasal cannula and now on room air and doing well. Speech saw him and recommend. SUPERVISOR CORE SHOP recommends ground mechanical/altered NDD2 and [place] thick liquid to minimize risk of aspiration Normocytic chronic anemia. He presented with a hemoglobin of 8, which has since dropped and stabilized at 7.5. Her last recorded hemoglobin in 2022 was 10. Occult blood testing was negative. Given the significant anemia, Xarelto has been held while Plavix is continued. I discussed the risks and benefits of resuming Xarelto with the son, and we agreed to continue holding Xarelto while maintaining Plavix, with ongoing hemoglobin monitoring. At this time, further testing with EGD is deferred due to the potential aspiration risk. The son understands and agrees with this plan. HARSHA on CKD3, resolved with IV fluids. HTN, resume usual meds Paroxysmal AFib, on metoprolol, holding Xarelto as above, continue Plavix Interstitial lung disease, currently on high-flow oxygen, titrate oxygen as appropriate. Diarrhea, check C. diff was negative and resolved. Time Attestation Discharge Coordination Time (in mins): 45 Quality: Safe Use of Opioids Does Pt have an Active Cancer Diagnosis on the Problem List?: No Quality: Stroke Does the patient have a stroke diagnosis?: No Physical Exam Vital Signs: Vital Signs: Last Vital Signs Temp 97.0 F 11/25/24 11:34 Pulse 64 11/25/24 11:34 Resp 17 11/25/24 11:34 BP 136/73 11/25/24 11:34 Pulse Ox 96 11/25/24 11:34 O2 Del Method Room Air 11/25/24 11:34 O2 Flow Rate 3 11/23/24 07:58 FiO2 35 11/21/24 12:19 BMI result Body Mass Index 21.2 Const: Other: General: confused no distress Resp: CTA bilateral CVS: S1,S2,RRR GI: +BS, NT, no distention Skin: No rash Neuro: motor grossly intact Psych: appropriate affect DS: Data Data Completed and Pending Labs on day of discharge: Laboratory Results - last 24 hr 11/24/24 11/24/24 11/25/24 10:55 13:11 09:26 WBC 8.9 RBC 2.66 L Hgb 7.8 L Hct 22.9 L MCV 86.1 MCH 29.3 MCHC 34.1 RDW 17.7 H Plt Count 242 MPV 10.5 Absolute Nucleated RBC 0.000 Nucleated RBC % (auto) 0.0 Sodium 143 142 Potassium 3.6 3.5 Chloride 113 H 113 H Carbon Dioxide 24 24 Anion Gap 10 L 9 L BUN 24 H 20 H Creatinine 1.04 0.98 Estim Creat Clear Calc 46.4 49.2 Estimated GFR > 60 > 60 Random Glucose 114 119 H Calcium 8.0 L 7.8 L C. difficile Tox B Gene NEGATIVE Preliminary micro results at discharge 11/20/24 23:38 Blood Culture - Preliminary Blood - Venous No growth after 48 hours. 11/20/24 23:29 Blood Culture - Preliminary Blood - Venous No growth after 48 hours. Discharge Plan Discharge Anticipated Discharge Date/Time: 11/25/24 13:06 Patient Disposition: Xfer SNF Discharge Diagnosis: UTI, aspiration pneumonia [facility] (RESUMPTION OF LTC) Cole Pete MD [Primary Care Provider] - 1 Week Discharge Medications: New cefuroxime axetil 500 mg tablet 500 mg PO BID 4 Days Qty: 8 0RF Continued clopidogrel 75 mg tablet 75 mg PO DAILY 90 Days Qty: 90 3RF folic acid 1 mg tablet 1 mg PO DAILY Qty: 90 1RF terazosin 5 mg capsule 1 cap PO BEDTIME cholecalciferol (vitamin D3) [Vitamin D3] 25 mcg (1,000 unit) Tablet 25 mcg PO DAILY sennosides [senna] 8.6 mg Tablet 17.2 mg PO BEDTIME PRN (Reason: Constipation) acetaminophen 325 mg Tablet 650 mg PO Q4H PRN (Reason: pain or fever) naloxone 0.4 mg/mL Solution 0.4 mg SUBCUT Q3M PRN (Reason: Opiate Reversal) Rx Instructions: NTExceed 10 mg total dose/episode magnesium hydroxide [Milk of Magnesia] 400 mg/5 mL Suspension 30 ml PO DAILY PRN (Reason: Constipation) bisacodyl 10 mg Suppository 10 mg MO DAILY PRN (Reason: Constipation) Fleet Enema 19-7 gram/118 mL Enema 118 ml MO DAILY PRN (Reason: Constipation) docusate sodium 100 mg Capsule 200 mg PO DAILY atorvastatin 40 mg Tablet 40 mg PO BEDTIME 30 Days Qty: 30 0RF multivitamin Tablet 1 tab PO DAILY divalproex 250 mg tablet,delayed release (DR/EC) 250 mg PO DAILY trazodone 50 mg Tablet 50 mg PO BEDTIME trazodone 50 mg Tablet 25 mg PO DAILY loperamide 2 mg Tablet 2 mg PO NEEDED MDD 8mg PRN (Reason: Loose Stool) Rx Instructions: administer after each loose stool until symptoms controlled; do not exceed 8 mg per 24 hrs tramadol 50 mg tablet 50 mg PO Q4H PRN (Reason: Pain) guaifenesin 100 mg/5 mL Liquid 200 mg PO Q6H PRN (Reason: Cough/Congestion) pantoprazole 20 mg tablet,delayed release (DR/EC) 20 mg PO DAILY@0630 menthol 10 mg Lozenge 10 mg MUCOUS MEMBRANE Q3H PRN (Reason: Sore Throat) baclofen 10 mg tablet 10 mg PO Q8H PRN (Reason: Spasms) ferrous sulfate 325 mg (65 mg iron) Tablet 325 mg PO DAILY diclofenac sodium 75 mg tablet,delayed release (DR/EC) 75 mg PO DAILY mirtazapine 15 mg tablet 15 mg PO BEDTIME gabapentin 100 mg capsule 100 mg PO BEDTIME ondansetron 4 mg Tablet,Disintegrating 4 mg PO Q6H PRN (Reason: Nausea And Vomiting) bismuth subsalicylate 525 mg/15 mL Suspension 1,050 mg PO Q6H PRN (Reason: GI Upset) Rx Instructions: do not exceed 4 doses per 24 hrs melatonin 5 mg Tablet 5 mg PO BEDTIME Xarelto 15 mg tablet 15 mg PO DAILY [place]-3 350 mg-235 mg- 90 mg-597 mg Capsule,Delayed Release(Dr/Ec) 2 cap PO DAILY tramadol 50 mg tablet 50 mg PO DAILY metoprolol tartrate 25 mg tablet 25 mg PO BID Protocol: Hold for SBP/HR < HOLD for SBP < : 90 HOLD for HR < : 60 calcium carbonate-vitamin D3 250 mg-3.125 mcg (125 unit) tablet 1 tab PO Q12H Discharge Orders: Discharge Order (Routine); Ordered 11/25/24 Ordered By: Gelacio Camejo Diet: Advance to usual diet Activity on Discharge: As tolerated Stand Alone Forms: Patient Portal Discharge page Print Language: Vincentian Care Plan Goals: recovery from aspiration, uti and anemia Health Concerns: recovery from pneumonia, UTI, metabolic encephalopathy and anemia Plan of Treatment: stop taking xarelto continue other medication Take Ceftin to complete treatment for pneumonia and uti Diet recommendation per speech: Liquid Consistency and Strategies for Safe Swallow: Liquid Intake Recommendation: [place] Thick Liquid Intake Strategies: Small Sips Solid Food Consistency: Dietary Recommendations: Grnd/Mech Altered (NDD2) Additional Modifications to Solid Foods: Direct supervision- Ensure upright positioning during meals, drape with towel to catch spills and cue for aspiration precautions as needed Assessment: see above
--- NOTE | 2024-11-25 13:30 | MHC.SL.SWA ---
Speech Pathologist Impression: Risk of Aspiration, Oropharyngeal Dysphagia Risk of Aspiration Due to: Weak Voice Dysphasia Diet Status: No Change Liquid Consistency and Strategies for Safe Swallow: Liquid Intake Recommendation: [place] Thick Liquid Intake Strategies: Small Sips Solid Food Consistency: Dietary Recommendations: Grnd/Mech Altered (NDD2) Additional Modifications to Solid Foods: Direct supervision- Ensure upright positioning during meals, drape with towel to catch spills and cue for aspiration precautions as needed Oral Medication Intake: Crushed with Puree Please contact the pharmacy regarding appropriate crushable or liquid drug formulations that are available whenever modified delivery is recommended. Compensatory Strategies and Precautions to be Taken for Safe Swallow: Sitting Upright (90 deg) Double Swallow No Straw Small Bites and Sips Alternate Liquids/Solids Rate of Ingestion Change Supervision While Eating and Drinking for Safe Swallow: Total Supervision (1:1) Foods to Avoid: Avoid: hard to chew, tough solids; dry foods; sticky or crunchy textures; mixed consistencies; foods that break up into small pieces (rice, popcorn, nuts) Swallowing Recommended Treatments: Compens. Strategy Educat. Recommendation for Speech: Inpatient Speech Therapy Manager Architecture Clinican/Clinical Fellow: No Supervisory Statement: I have reviewed and agree with the student/clinical fellow's documentation: N/A Speech Language Pathologist: Deb Lucio M.A., CCC-ACCOUNT ANALYST
--- NOTE | 2024-11-25 13:49 | P.PNIM_ITS ---
Subjective Subjective Date of Service: 11/25/24 Interval History: No new issues, breathing is comfortable H/H stable Physical Exam 2 Vital Signs: Vital Signs: Last Vital Signs Temp 97.0 F 11/25/24 11:34 Pulse 64 11/25/24 11:34 Resp 17 11/25/24 11:34 BP 136/73 11/25/24 11:34 Pulse Ox 96 11/25/24 11:34 O2 Del Method Room Air 11/25/24 11:34 O2 Flow Rate 3 11/23/24 07:58 FiO2 35 11/21/24 12:19 BMI result Body Mass Index 21.2 Const: Other: General: confused no distress Resp: CTA bilateral CVS: S1,S2,RRR GI: +BS, NT, no distention Skin: No rash Neuro: motor grossly intact Psych: appropriate affect Objective Data Active Medications Acetaminophen (Acetaminophen 325 Mg Tablet) 650 mg PO Q4H PRN PRN Reason: pain or fever Last Admin: 11/23/24 15:53 Dose: 650 mg Documented By: SATURNINO Atorvastatin Calcium (Atorvastatin Calcium 40 Mg Tablet) 40 mg PO BEDTIME [facility] Last Admin: 11/24/24 20:13 Dose: 40 mg Documented By: TARSHA Baclofen (Baclofen 10 Mg Tablet) 10 mg PO Q8H PRN PRN Reason: Spasms Bisacodyl (Bisacodyl 10 Mg Supp.Rect) 10 mg VA DAILY PRN PRN Reason: Constipation Calcium Carbonate (Calcium Carbonate 750 Mg Tab.Chew) 750 mg PO Q4H PRN PRN Reason: Heartburn Calcium Carbonate/Cholecalciferol (Calcium + Vitamin D 250 Mg Tablet) 250 mg PO Q12H [facility] Last Admin: 11/25/24 00:20 Dose: Not Given Documented By: TARSHA Non-Admin Reason: pt too sleepy, shaking his head no meds now Ceftriaxone Sodium (Ceftriaxone Sodium 1 Gm Vial) 1 gm IVPUSH Q24H [facility] Last Admin: 11/24/24 20:14 Dose: 1 gm Documented By: TARSHA Clopidogrel Bisulfate (Clopidogrel Bisulfate 75 Mg Tablet) 75 mg PO DAILY [facility] Last Admin: 11/25/24 08:33 Dose: 75 mg Documented By: JARROD Diclofenac Sodium (Diclofenac Sodium Delayed Rel 75 Mg Tablet.) 75 mg PO DAILY [facility] Last Admin: 11/25/24 08:46 Dose: Not Given Documented By: JARROD Non-Admin Reason: Patient Refused Divalproex Sodium (Divalproex Sodium 250 Mg Tablet.) 250 mg PO DAILY [facility] Last Admin: 11/25/24 08:32 Dose: 250 mg Documented By: JARROD Docusate Sodium (Docusate Sodium 100 Mg Capsule) 200 mg PO DAILY [facility] Last Admin: 11/25/24 08:47 Dose: Not Given Documented By: JARROD Non-Admin Reason: Patient Refused Doxazosin Mesylate (Doxazosin Mesylate 2 Mg Tablet) 4 mg PO BEDTIME [facility] Last Admin: 11/24/24 20:13 Dose: 4 mg Documented By: TARSHA Ferrous Sulfate (Ferrous Sulfate 324 Mg Tablet.) 324 mg PO DAILY [facility] Last Admin: 11/25/24 08:33 Dose: 324 mg Documented By: JARROD Folic Acid (Folic Acid 1 Mg Tablet) 1 mg PO DAILY [facility] Last Admin: 11/25/24 08:33 Dose: 1 mg Documented By: JARROD Gabapentin (Gabapentin 100 Mg Capsule) 100 mg PO BEDTIME [facility] Last Admin: 11/24/24 20:13 Dose: 100 mg Documented By: TARSHA Guaifenesin (Guaifenesin 200 Mg/10 Ml 10 Ml Liquid) 10 ml PO Q6H PRN PRN Reason: Cough/Congestion Loperamide HCl (Loperamide Hcl 2 Mg Capsule) 2 mg PO DAILY PRN PRN Reason: Loose Stool Last Admin: 11/24/24 11:45 Dose: 2 mg Documented By: SD Magnesium Hydroxide (Milk Of Magnesia 30 Ml Oral.Susp) 30 ml PO DAILY PRN PRN Reason: Constipation Melatonin (Melatonin 3 Mg Tablet) 6 mg PO BEDTIME PRN PRN Reason: Insomnia Metoprolol Tartrate (Metoprolol Tartrate 25 Mg Tablet) 25 mg PO BID [facility]; Protocol Last Admin: 11/25/24 08:32 Dose: 25 mg Documented By: JARROD Metronidazole (Metronidazole 500 Mg Tablet) 500 mg PO TID [facility] Last Admin: 11/25/24 08:31 Dose: 500 mg Documented By: JARROD Mirtazapine (Mirtazapine 15 Mg Tablet) 15 mg PO BEDTIME [facility] Last Admin: 11/24/24 20:13 Dose: 15 mg Documented By: TARSHA Multivitamins/Vitamin C (Multivitamin Tablet) 1 tab PO DAILY [facility] Last Admin: 11/25/24 08:31 Dose: 1 tab Documented By: JARROD Naloxone HCl (Naloxone Hcl 0.4 Mg/Ml Vial) 0.4 mg SUBCUT Q3M PRN PRN Reason: Opiate Reversal Ondansetron HCl (Ondansetron Hcl 4 Mg/2 Ml Vial) 4 mg IVPUSH Q8H PRN PRN Reason: Nausea and Vomiting Pantoprazole Sodium (Pantoprazole Sodium 20 Mg Tablet.Dr) 20 mg PO DAILY@0630 [facility] Last Admin: 11/25/24 06:43 Dose: 20 mg Documented By: ZAINAB Senna (Sennosides 8.6 Mg Tablet) 17.2 mg PO BEDTIME PRN PRN Reason: Constipation Sodium Biphosphate/Sodium Phosphate (Sodium Phosphate,Coke-Dibasic 133 Ml Enema) 118 ml VA DAILY PRN PRN Reason: Constipation Sodium Chloride (0.9 % Sodium Chloride Flush 3 Ml Syringe) 3 ml IVFLUSH QSHIFT [facility] Last Admin: 11/25/24 08:49 Dose: 3 ml Documented By: JARROD Trazodone HCl (Trazodone Hcl 25 Mg Halftab) 25 mg PO DAILY [facility] Last Admin: 11/25/24 08:30 Dose: 25 mg Documented By: JARROD Trazodone HCl (Trazodone Hcl 50 Mg Tablet) 50 mg PO BEDTIME [facility] Last Admin: 11/24/24 20:13 Dose: 50 mg Documented By: TARSHA Vitamin D (Cholecalciferol (Vitamin D3) 25 Mcg Tablet) 25 mcg PO DAILY [facility] Last Admin: 11/25/24 08:31 Dose: 25 mcg Documented By: JARROD Labs 11/25/24 09:26 11/25/24 09:26 Labs: Laboratory Results - last 24 hr 11/25/24 09:26 MCV 86.1 MCH 29.3 MCHC 34.1 RDW 17.7 H Plt Count 242 MPV 10.5 Absolute Nucleated RBC 0.000 Nucleated RBC % (auto) 0.0 Anion Gap 9 L Estim Creat Clear Calc 49.2 Estimated GFR > 60 Random Glucose 119 H Calcium 7.8 L Assessment and Plan (1) Acute UTI: Status: Acute (2) Aspiration pneumonia: Status: Acute (3) Acute metabolic encephalopathy: Status: Acute Plan Patient is an 84-year-old male with a past medical history significant for CVA, HTN, dementia, BPH, chronic constipation, CAD, paroxysmal AFib, NSTEMI, and interstitial lung disease, who presented via EMS from [facility] due to lethargy, poor PO intake, and altered mental status with hypotension in the 70s. Acute metabolic encephalopathy secondary to urinary tract infection, treat underlying UTI, culture positive for E. coli sensitive to ceftriaxone. Acute hypoxic respiratory failure secondary to aspiration pneumonia, much improved, off high-flow oxygen, continue weaning off 2L. Diet per speech recommendations. Continue ceftriaxone and Flagyl. Normocytic chronic anemia, hemoglobin has dropped but remains stable. Occult blood is negative. Holding Xarelto, continue oral PPI, repeat H/H within a week. If H/H remains stable, consider restarting Xarelto vs. permanently discontinuing. Follow CBC. Would avoid EGD at this time given recent aspiration pneumonia. HARSHA on CKD3, resolved with IV fluids. HTN, BP on the high side, resume BP medications. Paroxysmal AFib, on metoprolol, holding Xarelto due to drop in H/H, monitor H/H. Interstitial lung disease, currently on high-flow oxygen, titrate oxygen as appropriate. Diarrhea, check C. diff. Full code. VTE prophylaxis: consider restarting Xarelto if H/H remains stable, occult blood negative. Plan of care discussed with son over the phone. Quality Stroke Does the patient have a stroke diagnosis?: No VTE Prior VTE?: No VTE Risk Level:: Medical - moderate - high VTE Device Contraindication: Treatment Not Indicated VTE Drug Contraindication: N/A - Med Ordered
[2024-11-25] MEDS: Calcium + Vitamin D 250 MG TABLET PO (13:58)
--- NOTE | 2024-11-25 15:19 | MHC.CM.PN ---
Addendum entered by Reanna Branch 11/25/24 16:27: An order for discharge has been received. Patient will return to [facility] via BLS. Original Note: IMM 11/25/24 Per MD rounds patient may return to [facility] today. [facility] has been notified that MD would like to discharge today after he speaks with pts son. This bond writer called son x2. 1st call son was informed that MD needs to speak with him. MD CALLED X2 NO ANSWER. T/w CALLED AGAIN AND LEFT A VM WITH MD CONTACT INFO. CM will follow for discharge.
[2024-11-25 17:49] VITALS: BP 140/65; PULSE 75; RESP 18; TEMP 36.6; O2SAT 94
--- NOTE | 2024-11-25 18:01 | PC.NURSE ---
Nurse to Nurse report called to [facility].
== END 2024-11-25 18:16 | disposition skilled nursing facility (03) | DRG 689 ==
LOC: HO.ED 11-21 02:19 → HO.EDOVER 11-21 03:53 → HO.S3 11-21 21:51
PROVIDERS: Admitting Provider Student in an Organized Health Care Education/Training Program; Emergency Provider Emergency Medicine; PCP Family Medicine; Visit Provider Internal Medicine
DX: N39.0 Urinary tract infection, site not specified (principal); G93.41 Metabolic encephalopathy; J69.0 Pneumonitis due to inhalation of food and vomit; J96.01 Acute respiratory failure with hypoxia; N17.9 Acute kidney failure, unspecified; J84.9 Interstitial pulmonary disease, unspecified; I48.0 Paroxysmal atrial fibrillation; B96.20 Unspecified Escherichia coli [E. coli] as the cause of diseases classified elsewhere; I12.9 Hypertensive chronic kidney disease with stage 1 through stage 4 chronic kidney disease, or unspecified chronic kidney disease; N18.30 Chronic kidney disease, stage 3 unspecified; N40.0 Benign prostatic hyperplasia without lower urinary tract symptoms; F03.90 Unspecified dementia, unspecified severity, without behavioral disturbance, psychotic disturbance, mood disturbance, and anxiety; I25.10 Atherosclerotic heart disease of native coronary artery without angina pectoris; D63.1 Anemia in chronic kidney disease; Z86.73 Personal history of transient ischemic attack (TIA), and cerebral infarction without residual deficits; Z20.822 Contact with and (suspected) exposure to COVID-19; Z79.01 Long term (current) use of anticoagulants; Z79.899 Other long term (current) drug therapy
CPT/HCPCS: 0241U; 36415; 71045; 80048; 80076; 81001; 82272; 82803; 83605; 83735; 83880; 84443; 84484; 85025; 85027; 86850; 86900; 86901; 87040; 87086; 87088; 87186; 87493; 92526; 92610; 93005; 99285; J0696; J1650; J1836; J7120

== ENCOUNTER → 2024-11-20 23:26 | Outpatient (BNV) | payer MEDICARE, MEDICAID, SELFPAY | PROVIDERS: Emergency Provider Emergency Medicine; PCP Family Medicine; Visit Provider Radiology Diagnostic Radiology | DX: R03.0 Elevated blood-pressure reading, without diagnosis of hypertension (principal) | CPT/HCPCS: 71045 ==

== ENCOUNTER → 2024-11-20 23:26 | Outpatient (BNV) | payer MEDICARE, MEDICAID, SELFPAY | PROVIDERS: Admitting Provider Student in an Organized Health Care Education/Training Program; Emergency Provider Emergency Medicine; PCP Family Medicine; Visit Provider Internal Medicine Cardiovascular Disease | DX: I44.0 Atrioventricular block, first degree (principal); I49.9 Cardiac arrhythmia, unspecified; R00.1 Bradycardia, unspecified | CPT/HCPCS: 93010 ==

== ENCOUNTER 2024-11-21 03:50 | Outpatient (BNV) | payer MEDICARE, MEDICAID, SELFPAY | END 2024-11-21 04:08 | PROVIDERS: Admitting Provider Student in an Organized Health Care Education/Training Program; Emergency Provider Emergency Medicine; PCP Family Medicine; Visit Provider Specialist | DX: R09.02 Hypoxemia (principal) | CPT/HCPCS: 71045 ==

== ENCOUNTER → 2024-11-21 03:50 | Outpatient (BNV) | payer MEDICARE, MEDICAID, SELFPAY | PROVIDERS: Admitting Provider Student in an Organized Health Care Education/Training Program; Emergency Provider Emergency Medicine; PCP Family Medicine; Visit Provider Physician Assistant | DX: G93.41 Metabolic encephalopathy (principal); N39.0 Urinary tract infection, site not specified; J96.01 Acute respiratory failure with hypoxia; J69.0 Pneumonitis due to inhalation of food and vomit; D64.9 Anemia, unspecified; N17.9 Acute kidney failure, unspecified; N18.9 Chronic kidney disease, unspecified | CPT/HCPCS: 99223; 99232; 99239 ==

== ENCOUNTER 2024-11-30 12:57 | Emergency (ER) | payer MEDICARE, MEDICAID, SELFPAY ==
[2024-11-30] VITALS (11 sets, daily range): BP systolic 118–164; BP diastolic 34–72; PULSE 53–68; RESP 14–18; TEMP 36.5–36.8; O2SAT 53–97; BMI 20.3
--- NOTE | ~2024-11-30 | CT_ITS ---
CLINICAL HISTORY: possible GI bleeding - on plavix CT abdomen and pelvis with and without contrast Comparison: None Findings: Ucdmo-ufkgxbs-xfam-left basilar airspace pulmonary opacities. Bilateral basilar interstitial thickening. No pleural effusion. Corner artery disease. Intraluminal hyperdensity in the gastric fundus seen both on precontrast and postcontrast images and likely represents ingested material and not active bleed. No definite areas of active bleed are identified along the GI tract. There is diffuse severe atherosclerotic vascular disease involving the abdominal aorta, the celiac axis, superior mesenteric artery, bilateral renal arteries and inferior mesenteric artery. There is a 5.5 cm by 5 cm infrarenal abdominal aortic aneurysm with mural thrombus measuring up to 1 cm. Atherosclerotic vascular disease of bilateral common iliac, internal and external iliac arteries and common femoral arteries. The gallbladder is contracted. No biliary ductal dilatation. No focal hepatic or splenic abnormality. Pancreas somewhat atrophic. 1.9 cm nonspecific right adrenal mass. Left adrenal is unremarkable. Bilateral renal vascular calcifications. No ureteral stones. Enhancement of bilateral kidneys with no hydronephrosis or hydroureter. No bowel obstruction, pneumatosis or pneumoperitoneum. Colonic diverticulosis. Zopz-mm-rxmtjzhd colonic stool. Appendix not clearly visualized. No significant free fluid. Urinary bladder within normal limits. Prostate calcifications. Significant diffuse demineralization. Multilevel compression fractures in lower thoracic and lumbar spine most significant at L1 and L3 with no retropulsion. 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 Impression: 1. No definite active bleeding identified in the GI tract. If clinically active bleed is suspected follow-up tagged RBCs nuclear medicine scan should be obtained to further evaluate. 2. 5.5 cm infrarenal abdominal aortic aneurysm with mural thrombus. 3. Hgmyv-uqyjpnr-hdnk-left basilar pulmonary opacities either atelectasis or pneumonia with small right pleural effusion. 4. 1.9 cm right adrenal lesion which is nonspecific and can be further characterized with follow-up nonemergent adrenal CT or MRI. 5. Colonic diverticulosis. 6. Significant diffuse demineralization with multilevel compression fractures likely nonacute but correlate clinically. 7. Additional nonacute findings as described. This document has been electronically signed by: Tammy Lucero MD on 11/30/2024 18:28:44
--- NOTE | 2024-11-30 13:22 | ED_ITS ---
HPI - General Adult General Chief complaint: Recheck/Abnormal Lab/Rx Stated complaint: ABN LABS,? NEED TRANSFUSION FROM SNF PER EMS Time Seen by Provider: 11/30/24 13:21 Source: patient, family (patient's son and HCP Denis Nicole), EMS and other ([facility] staff) Mode of arrival: EMS Limitations: physical limitation (patient has a history of dementia - HCP invoked) History of Present Illness ED Provider: Lucretia Duke PA-C HPI narrative: Patient is an 84 year old assigned male at with a history of dementia (HCP invoked), AAA, interstitial lung disease, CAD with a hx of NSTEMI in 07/2021, ischemic cardiomyopathy, paroxysmal A.Fib on Xarelto, HTN, HLD, GERD, anxiety/depression, anemia, and BPH presenting to the emergency department today with a critically low hemoglobin from [facility] SN[facility]. Patient states that his only complaint is being poked over and over again and being cold . [facility] sent the patient due to a critical hemoglobin of 6.6 that resulted today (11/30/2024) but was drawn on 11/28/2024. Patient denies any complaints at this time. Relieving factors: none Exacerbating factors: none Associated symptoms: confusion (per his baseline - nothing new) Treatments prior to arrival: none Related Data Home Medications ?Medication ?Instructions ?Recorded ?Confirmed cholecalciferol (vitamin D3) 25 25 mcg PO DAILY 10/19/22 11/30/24 mcg (1,000 unit) tablet (Vitamin D3) terazosin 5 mg capsule 1 cap PO BEDTIME 10/19/22 11/30/24 acetaminophen 325 mg tablet 650 mg PO Q4H PRN pain or fever 02/02/23 11/30/24 bisacodyl 10 mg rectal suppository 10 mg NJ DAILY PRN Constipation 02/02/23 11/30/24 docusate sodium 100 mg capsule 200 mg PO DAILY 02/02/23 11/30/24 magnesium hydroxide 400 mg/5 mL 30 ml PO DAILY PRN Constipation 02/02/23 11/30/24 oral suspension (Milk of Magnesia) naloxone 0.4 mg/mL injection 0.4 mg subcut Q3M PRN Opiate 02/02/23 11/30/24 solution Reversal sennosides 8.6 mg tablet (senna) 17.2 mg PO BEDTIME PRN Constipation 02/02/23 11/30/24 sodium phosphates 19 gram-7 118 ml NJ DAILY PRN Constipation 02/02/23 11/30/24 gram/118 mL enema (Fleet Enema) baclofen 10 mg tablet 10 mg PO Q8H PRN Spasms 11/21/24 11/30/24 bismuth subsalicylate 525 mg/15 mL 1,050 mg PO Q6H PRN GI Upset 11/21/24 11/30/24 oral suspension calcium 250 mg (as 1 tab PO Q12H 11/21/24 11/30/24 carbonate)-vitamin D3 3.125 mcg (125 unit) tablet diclofenac sodium 75 mg 75 mg PO DAILY 11/21/24 11/30/24 tablet,delayed release divalproex 250 mg tablet,delayed 250 mg PO DAILY 11/21/24 11/30/24 release ferrous sulfate 325 mg (65 mg 325 mg PO DAILY 11/21/24 11/30/24 iron) tablet gabapentin 100 mg capsule 100 mg PO BEDTIME 11/21/24 11/30/24 guaifenesin 100 mg/5 mL oral liquid 200 mg PO Q6H PRN Cough/Congestion 11/21/24 11/30/24 loperamide 2 mg tablet 2 mg PO Q6H PRN Loose Stool 11/21/24 11/30/24 melatonin 5 mg tablet 5 mg PO BEDTIME Insomnia 11/21/24 11/30/24 menthol 10 mg lozenges 10 mg mucous membrane Q3H PRN Sore 11/21/24 11/30/24 Throat metoprolol tartrate 25 mg tablet 25 mg PO BID 11/21/24 11/30/24 mirtazapine 15 mg tablet 15 mg PO BEDTIME 11/21/24 11/30/24 multivitamin 1 tab PO DAILY 11/21/24 11/30/24 omega 3 350 mg-dha 235 mg-epa 90 2 cap PO DAILY 11/21/24 11/30/24 mg-fish oil 597 mg capsule,delay rel ([place]-3) ondansetron 4 mg disintegrating 4 mg PO Q6H PRN Nausea And Vomiting 11/21/24 11/30/24 tablet pantoprazole 20 mg tablet,delayed 20 mg PO DAILY@0630 11/21/24 11/30/24 release rivaroxaban 15 mg tablet (Xarelto) 15 mg PO DAILY@1800 11/21/24 11/30/24 tramadol 50 mg tablet 50 mg PO DAILY Pain (Scale Score 11/21/24 11/30/24 4-6) tramadol 50 mg tablet 50 mg PO Q4H PRN Pain 11/21/24 11/30/24 trazodone 50 mg tablet 25 mg PO DAILY 11/21/24 11/30/24 trazodone 50 mg tablet 50 mg PO BEDTIME 11/21/24 11/30/24 ascorbic acid (vitamin C) 500 mg 500 mg PO DAILY 11/30/24 11/30/24 tablet (Vitamin C) Previous Rx's ?Medication ?Instructions ?Recorded clopidogrel 75 mg tablet 75 mg PO DAILY 90 days #90 tabs 08/15/21 folic acid 1 mg tablet 1 mg PO DAILY #90 tabs 12/24/21 atorvastatin 40 mg tablet 40 mg PO BEDTIME 30 days #30 tabs 02/05/23 Allergies Allergy/AdvReac Type Severity Reaction Status Date / Time No Known Allergies Allergy Verified 11/30/24 13:26 [No Known Allergies*] Review of Systems 2 Constitutional: Constitutional: Reports no additional constitutional complaints, Denies chills, Denies fever(s) and Denies night sweats Eyes: Eyes: Reports no additional eye complaints, Denies blurry vision, Denies change in vision, Denies diplopia, Denies eye discharge, Denies loss of vision and Denies eye pain ENT: Denies dizziness Cardiovascular: Cardiovascular: Reports no additional cardiovascular complaints, Denies chest pain, Denies lightheadedness, Denies Loss of Consciousness and Denies dyspnea Respiratory: Respiratory: Reports no additional respiratory complaints and Denies dyspnea Gastrointestinal: Gastrointestinal: Reports no additional gastrointestinal complaints, Denies abdominal pain, Denies melena, Denies hematochezia, Denies change in bowel habits and Denies change in stool character Genitourinary: Genitourinary: Reports no additional male genitourinary complaints, Denies hematuria, Denies oliguria, Denies difficulty urinating, Denies dysuria, Denies urinary frequency, Denies urinary hesitancy, Denies urinary incontinence and Denies urinary urgency Musculoskeletal: Musculoskeletal: Reports no additional musculoskeletal complaints, Denies numbness and Denies tingling Neurologic: Reports confusion (per his baseline), Denies dizziness, Denies loss of vision, Denies numbness and Denies tingling Psychiatric: Psychiatric: Reports no additional psychiatric complaints and Reports confusion (per his baseline) Endocrine: Endocrine: Reports no additional endocrine complaints Hematologic/Lymphatic: Hematologic/Lymphatic: Reports no additional hematologic/lymphatic complaints Allergic/Immunologic: Allergic/Immunologic: Reports no additional allergic/immunologic complaints [facility] Past Medical History Attestation statement: The following information was validated with the patient. (patient's HCP validated all information) Source: old records reviewed and obtained from family (patient's HCP and son Denis provided additional history and confirmed the history provided by [facility] Staff and EMS) Medical History Corneal abrasion, left Compression fracture of L3 vertebra Compression fracture of L3 vertebra NSTEMI (non-ST elevated myocardial infarction) Left rib fracture Rotator cuff dysfunction Anxiety and depression Ulnar neuropathy Vertebral fracture Acetabular fracture Interstitial lung disease Tubular adenoma of colon Coronary artery disease GERD (gastroesophageal reflux disease) Hypertension Abdominal aortic aneurysm CVA (cerebral vascular accident) Hypercholesterolemia Paroxysmal A-fib Surgical History S/P cardiac catheterization History of bursectomy History of bilateral cataract extraction History of hemorrhoidectomy History of appendectomy Family History Family History Father Medical history unknown Mother Medical history unknown Social History Social History Household Members: Other Household Members Other:: real care Housing: Long Term Unable to assess alcohol history related to: Unable to respond Alcohol intake: never Patient Tobacco Use Status: Never used Tobacco e-Cigarette/Vaping Use: Never Used Second Hand Smoke Exposure: No Advance Directives Date on File: 02/02/23 service: No Current occupational status: retired Cognitive needs: No Hearing needs: Yes Vision needs: Yes Physical Exam ED Vital Signs: Vital Signs - 24 hr 11/30/24 13:22 11/30/24 13:31 11/30/24 14:00 Temperature 97.9 F 97.9 F 97.9 F Pulse Rate 53 53 53 Respiratory Rate 18 18 18 Blood Pressure 128/62 128/72 128/72 Pulse Oximetry 96 53 L 96 Oxygen Delivery Method Room Air Nasal Cannula Room Air Oxygen Flow Rate 96 11/30/24 16:18 11/30/24 17:43 11/30/24 18:01 Temperature 97.8 F 97.7 F 98.3 F Pulse Rate 55 58 56 Respiratory Rate 16 18 18 Blood Pressure 158/69 H 142/64 H 148/34 H Pulse Oximetry 95 Oxygen Delivery Method Room Air Oxygen Flow Rate 11/30/24 18:39 11/30/24 20:36 11/30/24 20:50 Temperature 98.3 F 98.0 F 98.0 F Pulse Rate 66 58 68 Respiratory Rate 14 14 18 Blood Pressure 146/43 H 151/40 H 164/44 H Pulse Oximetry 97 96 Oxygen Delivery Method Room Air Room Air Oxygen Flow Rate 11/30/24 20:55 11/30/24 22:19 12/01/24 00:12 Temperature 98.0 F Pulse Rate 68 57 59 Respiratory Rate 18 16 15 Blood Pressure 164/44 H 153/47 H 153/47 H Pulse Oximetry 96 Oxygen Delivery Method Room Air Oxygen Flow Rate 12/01/24 01:52 Temperature 98 F Pulse Rate 59 Respiratory Rate 15 Blood Pressure 153/47 H Pulse Oximetry 96 Oxygen Delivery Method Room Air Oxygen Flow Rate BMI result Body Mass Index 20.3 Const General: confusion (per his baseline) Nutritional Appearance: well nourished Orientation/consciousness: confusion (per his baseline) Limitations: no limitations [facility] Head: Yes normal to inspection and Yes atraumatic Ears: hearing grossly normal bilaterally and external ears normal General nose exam: Normal external nose present, no nasal discharge noted and no epistaxis Face and sinus: Yes normal facial exam, No abrasion and No laceration Mouth: Normal oral and palatal mucosa present, no drooling and no muffled voice Teeth and gingiva: other (questionable dentition - missing dentures or dental appliance) Eyes General: appearance normal, both eyes and all related structures Periorbital: periorbital findings normal Eyelids: Yes eyelids normal Conjunctivae: conjunctivae normal Pupils: Equal, round and reactive pupils present EOM: EOMs intact bilaterally Neck Neck: Yes normal visual inspection, Yes full ROM and Yes no lymphadenopathy Chest Chest palpation & inspection: normal inspection of the chest Resp Effort & Inspection: normal respiratory effort and able to speak in complete sentences GI Inspection: Yes normal to inspection Skin Other: pale Neuro General: confusion (per his baseline) Cranial nerves: Yes Equal, round and reactive pupils present Extrem General: Yes normal to inspection, Yes full ROM and Yes capillary refill normal Psych Appearance: grossly normal Mental Status: mental status grossly normal Affect: normal affect Attitude: cooperative Thought process: Normal thought process present Thought content: Normal thought content present Insight: Good insight present (Psych) Course Reevaluation(s) Reevaluation #1: Angelika Cheema NP 11/30/2024, 21:32 Received patient signed out pending transfusion [address] of the abdomen and pelvis with GI bleed protocol. Patient completed transfusion without any complication. Patient declined to have any digital rectal examination for occult stool sampling, requesting to the left alone. No prior reports of hematochezia or pain. CT with mentioned of right greater than left basilar pulmonary opacities either atelectasis or pneumonia with a small right pleural effusion, no respiratory complaints, no hypoxia tachypnea he is afebrile no increased work of breathing for suspicion that clinically this is pneumonia he has no leukocytosis neither. He was recently admitted to the hospital 11/21/2024-11/26/2019 found to have aspiration pneumonia, admission an acute hypoxic respiratory failure symptoms much improved discharge, he was discharged with 4 additional days of Ceftin, I do not see indication to prolonged course of antibiotics at this time. CT also revealed incidental findings 5.5 cm infrarenal abdominal aortic aneurysm with mural thrombus, currently he is already anticoagulated on Xarelto, I will consult vascular doctor Jannette to determine if there is any indication for surgical repair in this individual and if so I will contact patient's son to review this further and determine his wishes. CT also with incidental 1.9 cm right adrenal lesion which son will be made aware of, appropriate follow-up outpatient Impression: 1. No definite active bleeding identified in the GI tract. If clinically active bleed is suspected follow-up tagged RBCs nuclear medicine scan should be obtained to further evaluate. 2. 5.5 cm infrarenal abdominal aortic aneurysm with mural thrombus. 3. Irasf-pcqdhda-bsnu-left basilar pulmonary opacities either atelectasis or pneumonia with small right pleural effusion. 4. 1.9 cm right adrenal lesion which is nonspecific and can be further characterized with follow-up nonemergent adrenal CT or MRI. 5. Colonic diverticulosis. 6. Significant diffuse demineralization with multilevel compression fractures likely nonacute but correlate clinically. 7. Additional nonacute findings as described. Vascular Dr. Bhatia was consulted, advises elective outpatient follow-up regarding the aneurysm, no indication for urgent repair. I left a voicemail to patient's son phone as I had hoped to discuss these findings with him. Given his recent hospitalization, negative testing for GIB, do not feel that he requires inpatient admission at this time. You may therefore be transferred back to [facility] facility. Medications Administered Discontinued Medications Generic Name Dose Route Start Last Admin Trade Name Freq PRN Reason Stop Dose Admin Iohexol 100 ml 11/30/24 17:10 11/30/24 17:12 Iohexol 350 Mg/Ml 100 Ml Infus..Btl IV 11/30/24 17:11 80 ml ONCE ONE Administration Medical Decision Making Medical Decision Making [facility] Narrative: Patient is an 84 year old assigned male at with a history of dementia (HCP invoked), AAA, interstitial lung disease, CAD with a hx of NSTEMI in 07/2021, ischemic cardiomyopathy, paroxysmal A.Fib on Xarelto, HTN, HLD, GERD, anxiety/depression, anemia, and BPH presenting to the emergency department today with a critically low hemoglobin from [facility]. Patient's physical exam showed a pale individual with questionable dentition but was otherwise unremarkable. Patient's blood work showed a hgb of 7.2 with a HCT of 21.2. This appears to be consistent for the patient however, I did review the labs from the SNF that showed a hgb of 6.6. I spoke with the patient's HCP / son Denis and together, through shared deicison making, we decided to transfuse the patient 1 unit of RBCs given his pale appearance and excessive feeling of being cold. Denis provided verbal consent over the phone. I filled out the consent form to reflect as much. Patient's EKG showed bradycardia with occasional PACs. Given the patient is on Xarelto and continues to have anemia - will obtain CT GI bleed imaging. Patient's CT abd/pelvis for GI bleed is pending at this time. I explained my physical exam findings as well as all test results to the patient and the patient's HCP / son Denis. I answered all questions asked by the patient and the patient's HCP / son Denis. Patient signed out to evening RONAL Dex Baltazar pending CT GI bleed reading and the completion of blood transfusion. Differential Diagnosis Differential Diagnoses: The differential diagnosis associated with the presentation includes Anemia GI bleed Admission/Observation Consideration of admission/observation: Escalation of care including admission/observation considered Patient's disposition will be determined after CT scan is interpreted and blood transfusion is complete. Lab Data [facility] Lab Attestation statement: I reviewed the patient's lab results. My interpretation of these results are in the [facility] Rationale portion of this note. 11/30/24 15:45 11/30/24 15:45 Labs: Lab Results 11/30/24 11/30/24 11/30/24 Range/Units 15:01 15:44 15:45 WBC 10.5 (4.8-10.8) X10*3/uL RBC 2.42 L (4.60-5.80) X10*6/uL Hgb 7.2 L (14.0-18.0) g/dl Hct 21.2 L (42.0-52.0) % MCV 87.6 (80.0-98.0) fL MCH 29.8 (27.0-33.0) pg MCHC 34.0 (31.0-36.0) g/dl RDW 17.9 H (11.0-16.0) % Plt Count 349 D (160-400) X10*3/uL MPV 9.6 (9.4-12.4) fL Immature Gran % (Auto) 0.8 H (0.0-0.4) % Neut % (Auto) 63.5 (45-73) % Lymph % (Auto) 21.1 (20-40) % Hall % (Auto) 5.2 (2-11) % Eos % (Auto) 8.7 H (0-4) % Baso % (Auto) 0.7 (0-2) % Lymph # (Auto) 2.2 (1.2-4.9) X10*3/uL Hall # (Auto) 0.5 (0.1-1.2) X10*3/uL Eos # (Auto) 0.9 H (0.0-0.4) X10*3/uL Baso # (Auto) 0.1 (0.0-0.2) X10*3/uL Abs Immat Gran (auto) 0.08 H (0.00-0.03) X10*3/uL Absolute Neuts (auto) 6.7 (2.0-8.3) x10*3/uL Absolute Nucleated RBC 0.000 (0.0-0.012) X10*3/uL Nucleated RBC % (auto) 0.0 (0.0-0.2) /100WBC PT 15.3 H (10.9-12.4) SEC INR 1.3 H (0.9-1.1) Sodium 142 (135-145) mmol/L Potassium 4.1 (3.3-5.1) mmol/L Chloride 111 H (96-108) mmol/L Carbon Dioxide 27 (22-29) mmol/L Anion Gap 8 L (12-20) BUN 14 (9-16) mg/dL Creatinine 0.91 (0.5-1.4) mg/dL Estim Creat Clear Calc 57.0 Estimated GFR > 60 Random Glucose 116 H (60-115) mg/dL Calcium 7.8 L (8.4-10.2) mg/dL Magnesium 1.7 (1.6-2.6) mg/dL Total Bilirubin 0.2 (0.0-1.0) mg/dL AST 27 (5-37) U/L ALT < 6 (0-40) U/L Alkaline Phosphatase 64 (39-117) U/L Total Protein 5.7 L (6.5-8.0) g/dL Albumin 2.3 L (3.5-5.0) g/dL Influenza Type A (PCR) NEGATIVE (Negative) Influenza Type B (PCR) NEGATIVE (Negative) RSV RNA Qual (PCR) NEGATIVE (Negative) SARS-CoV-2 RNA (RT-PCR) NEGATIVE (Negative) Blood Type O Positive Antibody Screen NEGATIVE Crossmatch See Detail Independent Interpretation I performed an independent interpretation of an: EKG Interpretation: I independently interpreted this EKG and am in agreement with the below findings: Vent. Rate: 57 BPM Atrial Rate: 57 BPM P-R Int: 282 ms QRS Dur: 84 ms QT Int: 464 ms P-R-T Axes: -1 -18 -5 degrees QTcB Int: 451 ms Sinus bradycardia with 1st degree A-V block with Premature atrial complexes T wave abnormality, consider lateral ischemia When compared with ECG of 21-Nov-2024 00:06, Premature atrial complexes are now Present DD/ 1427 Independent Historian Clinical information obtained from an independent historian. History obtained from or confirmed by: EMS (EMS provided additional history and confirmed the history provided by the patient's HCP) and Other ([facility] staff provided additional history and confirmed the history provided by the patient.) External Record Review External record reviewed: Prior outpatient labs (11/28/2024 see below) Critical Care Time Critical Care Time Critical Care Time: Yes Total Critical Care Time: 36 Attestation: I spent 36 minutes of Critical Care Time with this patient. This does not include time spent on separately reported billable procedures. Discharge Plan Discharge Clinical Impression: Anemia, Abdominal aortic aneurysm Patient Disposition: [facility] Transfer Details: [place] [facility] Additional Instructions: Patient was evaluated in the emergency department today with concern for anemia, on presentation here his H and H was 7.2 in 21.2. With discussion with patient's son Denis he received 1 unit of packed red blood cells. A CT scan of his abdomen and pelvis was obtained to assess for evidence of acute gastrointestinal bleed there was however no findings consistent with this, during his recent hospitalization occult stool testing was also negative. CT scan did show incidental findings as listed below Impression: 1. No definite active bleeding identified in the GI tract. If clinically active bleed is suspected follow-up tagged RBCs nuclear medicine scan should be obtained to further evaluate. 2. 5.5 cm infrarenal abdominal aortic aneurysm with mural thrombus. 3. Equfa-pjmseif-oxhb-left basilar pulmonary opacities either atelectasis or pneumonia with small right pleural effusion. 4. 1.9 cm right adrenal lesion which is nonspecific and can be further characterized with follow-up nonemergent adrenal CT or MRI. 5. Colonic diverticulosis. 6. Significant diffuse demineralization with multilevel compression fractures likely nonacute but correlate clinically. 7. Additional nonacute findings as described. Regarding the infrarenal abdominal aortic aneurysm of 5.5 cm this was reviewed with our vascular surgeon, who advises that outpatient elective repair may be looked into, does not require urgent repair. I have provided contact information for the vascular office associated with this hospital should there wish to be any desire for surgical consideration. Additionally outpatient follow-up for the incidental finding of the adrenal lesion. Prescriptions: No Action clopidogrel 75 mg tablet 75 mg PO DAILY 90 Days Qty: 90 3RF folic acid 1 mg tablet 1 mg PO DAILY Qty: 90 1RF terazosin 5 mg capsule 1 cap PO BEDTIME cholecalciferol (vitamin D3) [Vitamin D3] 25 mcg (1,000 unit) Tablet 25 mcg PO DAILY sennosides [senna] 8.6 mg Tablet 17.2 mg PO BEDTIME PRN (Reason: Constipation) acetaminophen 325 mg Tablet 650 mg PO Q4H PRN (Reason: pain or fever) naloxone 0.4 mg/mL Solution 0.4 mg SUBCUT Q3M PRN (Reason: Opiate Reversal) Rx Instructions: NTExceed 10 mg total dose/episode magnesium hydroxide [Milk of Magnesia] 400 mg/5 mL Suspension 30 ml PO DAILY PRN (Reason: Constipation) bisacodyl 10 mg Suppository 10 mg NJ DAILY PRN (Reason: Constipation) Fleet Enema 19-7 gram/118 mL Enema 118 ml NJ DAILY PRN (Reason: Constipation) docusate sodium 100 mg Capsule 200 mg PO DAILY atorvastatin 40 mg Tablet 40 mg PO BEDTIME 30 Days Qty: 30 0RF multivitamin Tablet 1 tab PO DAILY divalproex 250 mg tablet,delayed release (DR/EC) 250 mg PO DAILY trazodone 50 mg Tablet 50 mg PO BEDTIME trazodone 50 mg Tablet 25 mg PO DAILY loperamide 2 mg Tablet 2 mg PO Q6H MDD 8mg PRN (Reason: Loose Stool) Rx Instructions: administer after each loose stool until symptoms controlled; do not exceed 8 mg per 24 hrs tramadol 50 mg tablet 50 mg PO Q4H PRN (Reason: Pain) guaifenesin 100 mg/5 mL Liquid 200 mg PO Q6H PRN (Reason: Cough/Congestion) pantoprazole 20 mg tablet,delayed release (DR/EC) 20 mg PO DAILY@0630 menthol 10 mg Lozenge 10 mg MUCOUS MEMBRANE Q3H PRN (Reason: Sore Throat) baclofen 10 mg tablet 10 mg PO Q8H PRN (Reason: Spasms) ferrous sulfate 325 mg (65 mg iron) Tablet 325 mg PO DAILY diclofenac sodium 75 mg tablet,delayed release (DR/EC) 75 mg PO DAILY mirtazapine 15 mg tablet 15 mg PO BEDTIME gabapentin 100 mg capsule 100 mg PO BEDTIME ondansetron 4 mg Tablet,Disintegrating 4 mg PO Q6H PRN (Reason: Nausea And Vomiting) bismuth subsalicylate 525 mg/15 mL Suspension 1,050 mg PO Q6H PRN (Reason: GI Upset) Rx Instructions: do not exceed 4 doses per 24 hrs melatonin 5 mg Tablet 5 mg PO BEDTIME Xarelto 15 mg tablet 15 mg PO DAILY@1800 [place]-3 350 mg-235 mg- 90 mg-597 mg Capsule,Delayed Release(Dr/Ec) 2 cap PO DAILY tramadol 50 mg tablet 50 mg PO DAILY metoprolol tartrate 25 mg tablet 25 mg PO BID Protocol: Hold for SBP/HR < HOLD for SBP < : 90 HOLD for HR < : 60 calcium carbonate-vitamin D3 250 mg-3.125 mcg (125 unit) tablet 1 tab PO Q12H ascorbic acid (vitamin C) [Vitamin C] 500 mg Tablet 500 mg PO DAILY Referrals: Kamar Bhatia MD [Physician] - Interventions: ED Discharge Assessment Last Done: 12/01/24 01:52 Discharge Date/Time: 12/01/24 01:52 Print Language: Czech
--- NOTE | 2024-11-30 13:54 | ECG_ITS ---
Test Reason : WEAKNESS Blood Pressure : */* mmHG Vent. Rate : 57 BPM Atrial Rate : 57 BPM P-R Int : 282 ms QRS Dur : 84 ms QT Int : 464 ms P-R-T Axes : -1 -18 -5 degrees QTcB Int : 451 ms Sinus bradycardia with 1st degree A-V block with Premature atrial complexes T wave abnormality, consider lateral ischemia Abnormal ECG When compared with ECG of 21-Nov-2024 00:06, Premature atrial complexes are now Present Inverted T waves have replaced nonspecific T wave abnormality in Anterior leads T wave inversion less evident in Lateral leads Referred By: Lucretia Duke Electronically Signed By: SHONDA REDDY
[2024-11-30 15:49] LABS: MANUAL DIFF FLAG NO
[2024-11-30 15:55] LABS: Influenza A PCR NEGATIVE (Negative); Influenza B PCR NEGATIVE (Negative); Resp Syncy Virus RNA Qual PCR NEGATIVE (Negative); SARS COV2 PCR INHOUSE NEGATIVE (Negative)
[2024-11-30 15:56] LABS: INTERNATIONAL NORM RATIO 1.3 (0.9-1.1); Prothrombin Time 15.3 SEC (10.9-12.4)
[2024-11-30 16:07] LABS: Basophils Absolute Auto 0.1 X10*3/uL (0.0-0.2); Basophils Percent Auto 0.7 % (0-2); Eosinophils Absolute Auto 0.9 X10*3/uL (0.0-0.4); Eosinophils Percent Auto 8.7 % (0-4); Hematocrit 21.2 % (42.0-52.0); Hemoglobin 7.2 g/dl (14.0-18.0); Imm Gran Abs Auto 0.08 X10*3/uL (0.00-0.03); Imm Gran Pct Auto 0.8 % (0.0-0.4); Lymphocytes Absolute Auto 2.2 X10*3/uL (1.2-4.9); Lymphocytes Percent Auto 21.1 % (20-40); Mean Corpuscular Hemoglobin 29.8 pg (27.0-33.0); Mean Corpuscular Volume 87.6 fL (80.0-98.0); Mean Platelet Volume 9.6 fL (9.4-12.4); Monocytes Absolute Auto 0.5 X10*3/uL (0.1-1.2); Monocytes Percent Auto 5.2 % (2-11); Neutrophils Absolute Auto 6.7 x10*3/uL (2.0-8.3); Neutrophils Percent Auto 63.5 % (45-73); Platelet Count 349 X10*3/uL (160-400); Red Blood Count 2.42 X10*6/uL (4.60-5.80); Red Cell Distribution Width 17.9 % (11.0-16.0); White Blood Count 10.5 X10*3/uL (4.8-10.8)
[2024-11-30 16:11] LABS: Alanine Aminotransferase < 6 U/L (0-40); Albumin Level 2.3 g/dL (3.5-5.0); Anion Gap 8 (12-20); Aspartate Amino Transferase 27 U/L (5-37); Bilirubin Total 0.2 mg/dL (0.0-1.0); Blood Urea Nitrogen 14 mg/dL (9-16); Calcium 7.8 mg/dL (8.4-10.2); Carbon Dioxide 27 mmol/L (22-29); Chloride 111 mmol/L (96-108); Estimated Glomerular Filt Rate > 60; Glucose Random 116 mg/dL (60-115); Magnesium 1.7 mg/dL (1.6-2.6); Potassium 4.1 mmol/L (3.3-5.1); Sodium 142 mmol/L (135-145); Total Protein 5.7 g/dL (6.5-8.0)
[2024-11-30 16:22] LABS: Alkaline Phosphatase 64 U/L (39-117)
--- NOTE | 2024-11-30 16:26 | PC.NURSE ---
Pt. still does not have IV line/ access, multiple RN's have attempted, will continue to f/u d/t abnormal lab result.
--- OUTSIDE RECORDS SUMMARY | 2024-11-30 16:47 | XMS_ITS | Encounter Summary ---
Author Organization [facility] Address [address] [place] [address] Care Team Providers Care Billet Bed Operator Name Role Phone Cole Pete MD Primary Care Provider [phone] Encounter Details Date Type Department Care Team (Late st Contact Info) Description 10/03/2024 Lab Requisition [facility] - Main Lab [address] [place] [address] Cole Pete MD [address] [place] [address] [facility] [address] Muscle weakness (generalized) Social History Tobacco Use Types Packs/Day Years Used Date Smoking Tobacco: Never Assessed Sex and Gender Information Value Date Recorded Sex Assigned at Not on file Legal Sex Male 7:39 AM EST Gender Identity Not on file Sexual Orientation Not on file documented as of this encounter Plan of Treatment Not on file documented as of this encounter Procedures Procedure Name Priority Date/Time Associated Diagnosis Comments COMPLETE BLOOD COUNT Routine 10/03/2024 6:54 AM EST Muscle weakness (generalized) BASIC METABOLIC PANEL Routine 10/03/2024 6:54 AM EST Muscle weakness (generalized) documented in this encounter Results * (ABNORMAL) Basic metabolic panel (10/03/2024 6:54 AM EST) Sodium 145 133 - 145 mmol/L LAB CHEMISTRY METHOD 10/03/2024 11:25 AM EST [facility] Potassium 4.1 3.5 - 5.5 mmol/L LAB CHEMISTRY METHOD 10/03/2024 11:25 AM EST [facility] Chloride 114(H) 96 - 110 mmol/L LAB CHEMISTRY METHOD 10/03/2024 11:25 AM [facility] CO2 25 21 - 32 mmol/L LAB CHEMISTRY METHOD 10/03/2024 11:25 AM [facility] Anion Gap 6 3 - 11 LAB CHEMISTRY METHOD 10/03/2024 11:25 AM [facility] Glucose 91 70 - 100 mg/dL LAB CHEMISTRY METHOD 10/03/2024 11:25 AM [facility] BUN 55(H) 5 - 25 mg/dL LAB CHEMISTRY METHOD 10/03/2024 11:25 AM [facility] Comment:Results verified by repeat testing Creatinine 1.72(H) 0.70 - 1.30 mg/dL LAB CHEMISTRY METHOD 10/03/2024 11:25 AM [facility] eGFR 38(L) >=60 mL/min/1. 73m2 LAB CHEMISTRY METHOD 10/03/2024 11:25 AM [facility] Comment:Calculation based on the??Chronic Kidney Disease Epidemiology Collaboration (CKD-EPI) equation refit??without adjustment for race. BUN/Creatinine Ratio 32.0 LAB CHEMISTRY METHOD 10/03/2024 11:25 AM [facility] Calcium 8.0(L) 8.5 - 10.5 mg/dL LAB CHEMISTRY METHOD 10/03/2024 11:25 AM [facility] Blood Venous blood specimen / Unknown Venipuncture / Unknown 10/03/2024 6:54 AM EST 10/03/2024 9:29 AM EST us Cole Pete MD LAB BLOOD ORDERABLES Final Resul t [facility] [address] [place] [address], * (ABNORMAL) Complete blood count (10/03/2024 6:54 AM EST) [facility] WBC 7.7 4.8 - 10.8 K/mcL LAB HEMETOLOGY METHOD 10/03/2024 10:01 AM [facility] RBC 2.60(L) 4.50 - 5.50 M/mcL LAB HEMETOLOGY METHOD 10/03/2024 10:01 AM [facility] Hemoglobin 7.3(L) 13.5 - 17.5 g/dL LAB HEMETOLOGY METHOD 10/03/2024 10:01 AM [facility] Hematocrit 23.2(L) 42.0 - 54.0 % LAB HEMETOLOGY METHOD 10/03/2024 10:01 AM [facility] MCV 89.2 79.0 - 98.0 FL LAB HEMETOLOGY METHOD 10/03/2024 10:01 AM [facility] MCH 28.1 27.0 - 32.0 pcg LAB HEMETOLOGY METHOD 10/03/2024 10:01 AM [facility] MCHC 31.5(L) 32.0 - 37.0 g/dL LAB HEMETOLOGY METHOD 10/03/2024 10:01 AM [facility] RDW 15.1(H) 11.0 - 15.0 % LAB HEMETOLOGY METHOD 10/03/2024 10:01 AM [facility] Platelets 269 130 - 400 K/mcL LAB HEMETOLOGY METHOD 10/03/2024 10:01 AM [facility] MPV 10.7 7.0 - 11.0 FL LAB HEMETOLOGY METHOD 10/03/2024 10:01 AM [facility] NRBC 0.0 <1.0 % LAB HEMETOLOGY METHOD 10/03/2024 10:01 AM [facility] NRBC Absolute 0.00 <0.10 K/mcL LAB HEMETOLOGY METHOD 10/03/2024 10:01 AM EST [facility] Blood Venous blood specimen / Unknown Venipuncture / Unknown 10/03/2024 6:54 AM EST 10/03/2024 9:29 AM EST us Cole Pete MD LAB BLOOD ORDERABLES Final Resul t [facility] [address] [place] [address], documented in this encounter Visit Diagnoses Diagnosis Muscle weakness (generalized) documented in this encounter Care Teams Billet Bed Operator Relationship Specialty Start Date End Date Cole Pete MD [address] [place] [address], [phone] PCP - General Family Medicine 07/31/24 documented as of this encounter
--- OUTSIDE RECORDS SUMMARY | 2024-11-30 16:47 | XMS_ITS | Encounter Summary ---
Author Organization [facility] Address [address] [place] [address] Care Team Providers Care Barrel Rifler Operator Name Role Phone Cole Pete MD Primary Care Provider [phone] Encounter Details Date Type Department Care Team (Late st Contact Info) Description 09/05/2024 Lab Requisition [facility] - Main Lab 299 [facility] [place] [place] [address] Cole Pete MD [address] [place] [address] 204 [facility] [phone] Essential (primary) hypertension; Encounter for therapeutic drug level monitoring Social History Tobacco Use Types Packs/Day Years [...] Associated Diagnosis Comments COMPLETE BLOOD COUNT Routine 09/05/2024 5:15 AM EST Essential (primary) hypertension Encounter for therapeutic drug level monitoring VALPROIC ACID LEVEL, TOTAL Routine 09/05/2024 5:15 AM EST Essential (primary) hypertension Encounter for therapeutic drug level monitoring BASIC METABOLIC PANEL Routine 09/05/2024 5:15 AM EST Essential (primary) hypertension Encounter for therapeutic drug level monitoring documented in this encounter Results * (ABNORMAL) Valproic acid level, total (09/05/2024 5:15 AM EST) Valproic Acid, Total <3(L) 50 - 100 mcg/mL LAB CHEMISTRY METHOD 09/05/2024 9:21 AM [facility] Blood Venous blood specimen / Unknown Venipuncture / Unknown 09/05/2024 5:15 AM EST 09/05/2024 8:16 AM EST us Cole Pete MD LAB BLOOD ORDERABLES Final Resul t [facility] [address] [place] [address], [place] [phone] * (ABNORMAL) Basic metabolic panel (09/05/2024 5:15 AM EST) Sodium 140 133 - 145 mmol/L LAB CHEMISTRY METHOD 09/05/2024 9:13 AM [facility] Potassium 4.4 3.5 - 5.5 mmol/L LAB CHEMISTRY METHOD 09/05/2024 9:13 AM [facility] Chloride 111(H) 96 - 110 mmol/L LAB CHEMISTRY METHOD 09/05/2024 9:13 AM [facility] CO2 25 21 - 32 mmol/L LAB CHEMISTRY METHOD 09/05/2024 9:13 AM [facility] Anion Gap 4 3 - 11 LAB CHEMISTRY METHOD 09/05/2024 9:13 AM [facility] Glucose 86 70 - 100 mg/dL LAB CHEMISTRY METHOD 09/05/2024 9:13 AM [facility] BUN 17 5 - 25 mg/dL LAB CHEMISTRY METHOD 09/05/2024 9:13 AM [facility] Creatinine 1.43(H) 0.70 - 1.30 mg/dL LAB CHEMISTRY METHOD 09/05/2024 9:13 AM [facility] eGFR 48(L) >=60 mL/min/1. 73m2 LAB CHEMISTRY METHOD 09/05/2024 9:13 AM [facility] Comment:Calculation based on the??Chronic Kidney Disease Epidemiology Collaboration (CKD-EPI) equation refit??without adjustment for race. BUN/Creatinine Ratio 11.9 LAB CHEMISTRY METHOD 09/05/2024 9:13 AM [facility] Calcium 7.8(L) 8.5 - 10.5 mg/dL LAB CHEMISTRY METHOD 09/05/2024 9:13 AM [facility] Blood Venous blood specimen / Unknown Venipuncture / Unknown 09/05/2024 5:15 AM EST 09/05/2024 8:16 AM EST us Cole Pete MD LAB BLOOD ORDERABLES Final Resul t [facility] [address] [place] [address], [place] [phone] * (ABNORMAL) Complete blood count (09/05/2024 5:15 AM EST) WBC 11.3(H) 4.8 - 10.8 K/mcL LAB HEMETOLOGY METHOD 09/05/2024 8:49 AM [facility] RBC 2.60(L) 4.50 - 5.50 M/mcL LAB HEMETOLOGY METHOD 09/05/2024 8:49 AM [facility] Hemoglobin 7.6(L) 13.5 - 17.5 g/dL LAB HEMETOLOGY METHOD 09/05/2024 8:49 AM [facility] Hematocrit 22.9(L) 42.0 - 54.0 % LAB HEMETOLOGY METHOD 09/05/2024 8:49 AM [facility] MCV 89.5 79.0 - 98.0 FL LAB HEMETOLOGY METHOD 09/05/2024 8:49 AM [facility] MCH 29.7 27.0 - 32.0 pcg LAB HEMETOLOGY METHOD 09/05/2024 8:49 AM [facility] MCHC 33.2 32.0 - 37.0 g/dL LAB HEMETOLOGY METHOD 09/05/2024 8:49 AM EST [facility] RDW 15.4(H) 11.0 - 15.0 % LAB HEMETOLOGY METHOD 09/05/2024 8:49 AM [facility] Platelets 274 130 - 400 K/mcL LAB HEMETOLOGY METHOD 09/05/2024 8:49 AM EST [facility] MPV 10.4 7.0 - 11.0 FL LAB HEMETOLOGY METHOD 09/05/2024 8:49 AM EST [facility] NRBC 0.0 <1.0 % LAB HEMETOLOGY METHOD 09/05/2024 8:49 AM [facility] NRBC Absolute 0.00 <0.10 K/mcL LAB HEMETOLOGY METHOD 09/05/2024 8:49 AM [facility] Blood Venous blood specimen / Unknown Venipuncture / Unknown 09/05/2024 5:15 AM EST 09/05/2024 8:16 AM EST us Cole Pete MD LAB BLOOD ORDERABLES Final Resul t [facility] [address] [place] [address], documented in this encounter Visit Diagnoses Diagnosis Essential (primary) hypertension Unspecified essential hypertension Encounter for therapeutic drug level monitoring documented in this encounter Care Teams Barrel Rifler Operator Relationship Specialty Start Date End Date Cole Pete MD [address] [place] [address], [phone] PCP - General Family Medicine 07/31/24 documented as of this encounter
--- OUTSIDE RECORDS SUMMARY | 2024-11-30 16:47 | XMS_ITS | Encounter Summary ---
Author Organization [facility] Address [address] [place] [address] Care Team Providers Care Player Services Representative Name Role Phone Cole Pete MD Primary Care Provider [phone] Encounter Details Date Type Department Care Team (Late st Contact Info) Description 08/02/2024 Lab Requisition [facility] - Main Lab [address] [place] [address] Cole Pete MD [address] [facility] 204 [facility] [address] Paroxysmal atrial fibrillation (CMS/HCC) Social History Tobacco Use Types Packs/Day Years [...] Procedure Name Priority Date/Time Associated Diagnosis Comments CBC WITH AUTO DIFFERENTIAL Routine 08/02/2024 7:33 AM EST Paroxysmal atrial fibrillation (CMS/HCC) CBC AND DIFFERENTIAL Routine 08/02/2024 7:33 AM EST Paroxysmal atrial fibrillation (CMS/HCC) BASIC METABOLIC PANEL Routine 08/02/2024 7:33 AM EST Paroxysmal atrial fibrillation (CMS/HCC) documented in this encounter Results * (ABNORMAL) CBC auto differential (08/02/2024 7:33 AM EST) WBC 8.4 4.8 - 10.8 K/[facility] LAB HEMETOLOGY METHOD 08/02/2024 10:36 AM [facility] RBC 2.60(L) 4.50 - 5.50 M/mcL LAB HEMETOLOGY METHOD 08/02/2024 10:36 AM [facility] Hemoglobin 7.6(L) 13.5 - 17.5 g/dL LAB HEMETOLOGY METHOD 08/02/2024 10:36 AM [facility] Hematocrit 24.0(L) 42.0 - 54.0 % LAB HEMETOLOGY METHOD 08/02/2024 10:36 AM [facility] MCV 91.6 79.0 - 98.0 FL LAB HEMETOLOGY METHOD 08/02/2024 10:36 AM [facility] MCH 29.0 27.0 - 32.0 pcg LAB HEMETOLOGY METHOD 08/02/2024 10:36 AM [facility] MCHC 31.7(L) 32.0 - 37.0 g/dL LAB HEMETOLOGY METHOD 08/02/2024 10:36 AM [facility] RDW 15.8(H) 11.0 - 15.0 % LAB HEMETOLOGY METHOD 08/02/2024 10:36 AM [facility] Platelets 325 130 - 400 K/mcL LAB HEMETOLOGY METHOD 08/02/2024 10:36 AM [facility] MPV 10.5 7.0 - 11.0 FL LAB HEMETOLOGY METHOD 08/02/2024 10:36 AM [facility] NRBC 0.0 <1.0 % LAB HEMETOLOGY METHOD 08/02/2024 10:36 AM [facility] NRBC Absolute 0.00 <0.10 K/mcL LAB HEMETOLOGY METHOD 08/02/2024 10:36 AM [facility] Neutrophils Relative 66.4 % LAB HEMETOLOGY METHOD 08/02/2024 10:36 AM [facility] Lymphocytes Relative 19.7 % LAB HEMETOLOGY METHOD 08/02/2024 10:36 AM [facility] Monocytes Relative 5.7 % LAB HEMETOLOGY METHOD 08/02/2024 10:36 AM [facility] Eosinophils Relative 7.2 % LAB HEMETOLOGY METHOD 08/02/2024 10:36 AM [facility] Basophils Relative 0.6 % LAB HEMETOLOGY METHOD 08/02/2024 10:36 AM [facility] Immature Granulocytes Relative 0.4 % LAB HEMETOLOGY METHOD 08/02/2024 10:36 AM [facility] Neutrophils Absolute 5.59 1.50 - 7.00 K/mcL LAB HEMETOLOGY METHOD 08/02/2024 10:36 AM [facility] Lymphocytes Absolute 1.66 1.00 - 5.00 K/mcL LAB HEMETOLOGY METHOD 08/02/2024 10:36 AM [facility] Monocytes Absolute 0.48 0.20 - 1.00 K/mcL LAB HEMETOLOGY METHOD 08/02/2024 10:36 AM [facility] Eosinophils Absolute 0.61(H) 0.00 - 0.50 K/mcL LAB HEMETOLOGY METHOD 08/02/2024 10:36 AM [facility] Basophils Absolute 0.05 0.00 - 0.20 K/mcL LAB HEMETOLOGY METHOD 08/02/2024 10:36 AM [facility] Immature Granulocytes Absolute 0.03 0.00 - 0.03 K/mcL LAB HEMETOLOGY METHOD 08/02/2024 10:36 AM [facility] Blood Venous blood specimen / Unknown Venipuncture / Unknown 08/02/2024 7:33 AM EST 08/02/2024 10:03 AM EST us Cole Pete MD LAB BLOOD ORDERABLES Final Resul t [facility] [address] [place] [address], * (ABNORMAL) Basic metabolic panel (08/02/2024 7:33 AM EST) Sodium 142 133 - 145 mmol/L LAB CHEMISTRY METHOD 08/02/2024 10:55 AM [facility] Potassium 5.1 3.5 - 5.5 mmol/L LAB CHEMISTRY METHOD 08/02/2024 10:55 AM [facility] Chloride 114(H) 96 - 110 mmol/L LAB CHEMISTRY METHOD 08/02/2024 10:55 AM [facility] CO2 23 21 - 32 mmol/L LAB CHEMISTRY METHOD 08/02/2024 10:55 AM [facility] Anion Gap 5 3 - 11 LAB CHEMISTRY METHOD 08/02/2024 10:55 AM [facility] Glucose 91 70 - 100 mg/dL LAB CHEMISTRY METHOD 08/02/2024 10:55 AM [facility] BUN 21 5 - 25 mg/dL LAB CHEMISTRY METHOD 08/02/2024 10:55 AM [facility] Creatinine 1.47(H) 0.70 - 1.30 mg/dL LAB CHEMISTRY METHOD 08/02/2024 10:55 AM [facility] eGFR 46(L) >=60 mL/min/1. 73m2 LAB CHEMISTRY METHOD 08/02/2024 10:55 AM [facility] Comment:Calculation based on the??Chronic Kidney Disease Epidemiology Collaboration (CKD-EPI) equation refit??without adjustment for race. BUN/Creatinine Ratio 14.3 LAB CHEMISTRY METHOD 08/02/2024 10:55 AM [facility] Calcium 8.4(L) 8.5 - 10.5 mg/dL LAB CHEMISTRY METHOD 08/02/2024 10:55 AM EST [facility] Blood Venous blood specimen / Unknown Venipuncture / Unknown 08/02/2024 7:33 AM EST 08/02/2024 10:03 AM EST us Cole Pete MD LAB BLOOD ORDERABLES Final Resul t [facility] [address] [place] [address], documented in this encounter Visit Diagnoses Diagnosis Paroxysmal atrial fibrillation (CMS/HCC) Atrial fibrillation documented in this encounter Care Teams Player Services Representative Relationship Specialty Start Date End Date Cole Pete MD [address] [place] [address], [phone] PCP - General Family Medicine 07/31/24 documented as of this encounter
--- OUTSIDE RECORDS SUMMARY | 2024-11-30 16:47 | XMS_ITS | Encounter Summary ---
Author Organization [facility] Address [address] [place] [address] Care Team Providers Care Die Machine Operator Name Role Phone Cole Pete MD Primary Care Provider [phone] Encounter Details Date Type Department Care Team (Late st Contact Info) Description 10/07/2024 Lab Requisition [facility] - Main Lab 299 [facility] [place] [address] Cole Pete MD [address] [place] [address] 204 [facility] [address] Paroxysmal atrial fibrillation (CMS/HCC); Hyperkalemia; Unspecified dementia, unspecified severity, without behavioral disturbance, psychotic disturbance, mood disturbance, and anxiety (CMS/HCC) Social History Tobacco Use Types Packs/Day [...] Associated Diagnosis Comments COMPLETE BLOOD COUNT Routine 10/10/2024 6:24 AM EST Paroxysmal atrial fibrillation (CMS/HCC) Hyperkalemia Unspecified dementia, unspecified severity, without behavioral disturbance, psychotic disturbance, mood disturbance, and anxiety (CMS/HCC) BASIC METABOLIC PANEL Routine 10/10/2024 6:24 AM EST Paroxysmal atrial fibrillation (CMS/HCC) Hyperkalemia Unspecified dementia, unspecified severity, without behavioral disturbance, psychotic disturbance, mood disturbance, and anxiety (CMS/HCC) documented in this encounter Results * (ABNORMAL) Basic metabolic panel (10/10/2024 6:24 AM EST) Sodium 140 133 - 145 mmol/L LAB CHEMISTRY METHOD 10/10/2024 1:48 PM [facility] Potassium 4.3 3.5 - 5.5 mmol/L LAB CHEMISTRY METHOD 10/10/2024 1:48 PM [facility] Chloride 110 96 - 110 mmol/L LAB CHEMISTRY METHOD 10/10/2024 1:48 PM [facility] CO2 27 21 - 32 mmol/L LAB CHEMISTRY METHOD 10/10/2024 1:48 PM [facility] Anion Gap 3 3 - 11 LAB CHEMISTRY METHOD 10/10/2024 1:48 PM [facility] Glucose 82 70 - 100 mg/dL LAB CHEMISTRY METHOD 10/10/2024 1:48 PM [facility] BUN 20 5 - 25 mg/dL LAB CHEMISTRY METHOD 10/10/2024 1:48 PM [facility] Creatinine 1.21 0.70 - 1.30 mg/dL LAB CHEMISTRY METHOD 10/10/2024 1:48 PM [facility] eGFR 59(L) >=60 mL/min/1. 73m2 LAB CHEMISTRY METHOD 10/10/2024 1:48 PM [facility] Comment:Calculation based on the??Chronic Kidney Disease Epidemiology Collaboration (CKD-EPI) equation refit??without adjustment for race. BUN/Creatinine Ratio 16.5 LAB CHEMISTRY METHOD 10/10/2024 1:48 PM [facility] Calcium 7.8(L) 8.5 - 10.5 mg/dL LAB CHEMISTRY METHOD 10/10/2024 1:48 PM [facility] Blood Venous blood specimen / Unknown Venipuncture / Unknown 10/10/2024 6:24 AM EST 10/10/2024 11:29 AM EST Cole Pete MD LAB BLOOD ORDERABLES Final Resul t [facility] [address] [place] [address], * (ABNORMAL) Complete blood count (10/10/2024 6:24 AM EST) WBC 7.2 4.8 - 10.8 K/mcL LAB HEMETOLOGY METHOD 10/10/2024 1:03 PM [facility] RBC 2.30(L) 4.50 - 5.50 M/mcL LAB HEMETOLOGY METHOD 10/10/2024 1:03 PM [facility] Hemoglobin 6.6(L) 13.5 - 17.5 g/dL LAB HEMETOLOGY METHOD 10/10/2024 1:03 PM [facility] Hematocrit 20.2(L) 42.0 - 54.0 % LAB HEMETOLOGY METHOD 10/10/2024 1:03 PM [facility] MCV 87.8 79.0 - 98.0 FL LAB HEMETOLOGY METHOD 10/10/2024 1:03 PM [facility] MCH 28.7 27.0 - 32.0 pcg LAB HEMETOLOGY METHOD 10/10/2024 1:03 PM [facility] MCHC 32.7 32.0 - 37.0 g/dL LAB HEMETOLOGY METHOD 10/10/2024 1:03 PM [facility] RDW 15.7(H) 11.0 - 15.0 % LAB HEMETOLOGY METHOD 10/10/2024 1:03 PM [facility] Platelets 295 130 - 400 K/mcL LAB HEMETOLOGY METHOD 10/10/2024 1:03 PM [facility] MPV 10.6 7.0 - 11.0 FL LAB HEMETOLOGY METHOD 10/10/2024 1:03 PM EST [facility] NRBC 0.0 <1.0 % LAB HEMETOLOGY METHOD 10/10/2024 1:03 PM EST [facility] NRBC Absolute 0.00 <0.10 K/mcL LAB HEMETOLOGY METHOD 10/10/2024 1:03 PM EST [facility] Blood Venous blood specimen / Unknown Venipuncture / Unknown 10/10/2024 6:24 AM EST 10/10/2024 11:29 AM EST us Cole Pete MD LAB BLOOD ORDERABLES Final Resul t [facility] [address] [place] [address], documented in this encounter Visit Diagnoses Diagnosis Paroxysmal atrial fibrillation (CMS/HCC) Atrial fibrillation Hyperkalemia Hyperpotassemia Unspecified dementia, unspecified severity, without behavioral disturbance, psychotic disturbance, mood disturbance, and anxiety (CMS/HCC) documented in this encounter Care Teams Die Machine Operator Relationship Specialty Start Date End Date Cole Pete MD [address] [place] [address], [phone] PCP - General Family Medicine 07/31/24 documented as of this encounter
--- OUTSIDE RECORDS SUMMARY | 2024-11-30 16:47 | XMS_ITS | Continuity of Care Document ---
Author Organization [facility], [facility] Address [address] [place] [address] Care Team Providers Care Brick Chimney Supervisor Name Role Phone JASMIN HATCH - 2ND FLOOR OTHER HEIDI PANDEY Primary Care Provider Assessment No assessment recorded. Plan of Treatment Reminders Order Date Submit Date Provider Last Modified By Organization Details Last Modified Time Details Appointments Acute Rounding Visit 2024 11:29A M Chandrika Vasques NP Not available Not available Not available Lab None recorded. Referral None recorded. Procedures None recorded. Surgeries None recorded. Imaging None recorded. Medication Orders None recorded. Patient TargetsNo targets recorded. Patient InstructionsNo instructions recorded. Reason for Referral None Reported. Problems Name Problem SNOMED Code Status Onset Date Resolution Date Notes Provider Name and Address Organization Details Recorded Time Recurrent falls 562317420 Active 2022 Not Available [facility] 4 15:36:09 Acute non-ST segment elevation myocardial infarction 938707183 Active 2022 Not Available [facility] 4 15:36:10 Urinary tract infectious disease 44027852 Active 2022 Not Available [facility] 4 15:36:10 Altered mental status 980009164 Active 2022 Not Available [facility] 4 15:36:10 Dysphagia 49643199 Active 2022 Not Available [facility] 4 15:36:10 Anemia 962561168 Active 2022 Not Available [facility] 4 15:36:09 Loose stool 428508101 Active 2022 Not Available [facility] 4 15:36:09 Insomnia 920948681 Active 2023 Danni Joel MD [address] [facility], [address], [place], [address] , [facility] 4 17:14:19 Osteonecrosis 821938950 Active 2023 Chandrika Vasques NP [address], [address], [place], [address] , [facility] 4 17:02:51 Candidiasis of the esophagus 67682856 Active 2023 STEPHANIE MYLES NP [address] [facility], [address], [place], [address] , [facility] 4 13:32:32 Cough 47561702 Active 2023 Chandrika Vasques NP [address] [facility], [address], [place], [address] , [facility] 4 12:48:25 Hypocalcemia 1166149 Active 2024 Chandrika Vasques NP [address] [facility], [address], [place], [address] , [facility] 5 14:31:10 Acute cystitis 07944702 Active 2018 Not Available [facility] 4 15:36:10 Dementia 51913761 Active 2018 Not Available [facility] 4 15:36:10 Closed fracture of acetabulum 98943865 Active 2018 Not Available [facility] 4 15:36:09 Osteoarthriti s 369597417 Active 2018 Not Available [facility] 4 15:36:09 Paroxysmal atrial fibrillation 051689920 Active 2018 Not Available [facility] 4 15:36:09 Coronary arteriosclero sis 58475848 Active 2018 Not Available [facility] 4 15:36:10 History of cerebrovascul ar accident 583095055 Active 2018 Not Available [facility] 4 15:36:09 Retention of urine 755452926 Active 2018 Not Available [facility] 4 15:36:09 Essential hypertension 45810424 Active 2018 Not Available [facility] 4 15:36:10 Obstructive sleep apnea syndrome 88520203 Active 2018 Not Available [facility] 4 15:36:10 Gastroesophag eal reflux disease 338158016 Active 2018 Not Available [facility] 4 15:36:09 Diverticuliti s 979536125 Active 2018 Not Available [facility] 4 15:36:09 Mixed hyperlipidemi a 085092163 Active 2018 Not Available [facility] 4 15:36:09 Depressive disorder 64882354 Active 2018 Not Available [facility] 4 15:36:09 Chronic low back pain 066165175 Active 2018 Not Available [facility] 4 15:36:09 Fracture of scapular body 80658928 Active 2018 Not Available [facility] 4 15:36:10 Teardrop fracture of cervical vertebra 238512649 Active 2018 Not Available [facility] 4 15:36:09 Unsteady gait Active 2018 Not Available [facility] 4 15:36:09 Gastroesophag eal reflux disease without esophagitis 511528282 Active 2018 Not Available [facility] 4 15:36:09 Impaired cognition 367881724 Active 2018 Not Available [facility] 4 15:36:09 Problem Notes None recorded. Medical Equipment None Reported. Allergies No known drug allergies Medications Name Sig Start Date Stop Date Status Note LastModified by Organization Details LastModified Time tramadol 50 mg tablet 1 tab po daily and q 4 hours prn pain 024 active Not Available Not Available Not Avai lable Vitals Date Recorded Body height Body mass index (BMI) Body weight Heart rate Respiratory rate Body temperature Oxygen saturation Oxygen saturation in Arterial blood by Pulse oximetry Systolic blood pressure Diastolic blood pressure Provider Name and Address Organization Details Last Updated DateTime 5 175.26 cm 20.1 kg/m2 46718.5 6 g 66 /min 16 /min 97.9 [degF] 93 % 93 % 102 mm[Hg] 62 mm[Hg] Chandrika Vasques NP [address], [address], [place], [address], [facility] 11:30:47 Social History Question Answer Notes LastModified by Organizat ion Details LastModified Time Tobacco Smoking Status Never Smoker Cole Pete MD [address], [address], [place], [address], [facility] 11/03/2022 13:48:54 Do You Have An Advance Directive? Yes [email or web address] Information not available 11/04/2022 What Is Your Level Of Alcohol Consumption? None [email or web address] Information not available 11/03/2022 What Is Your Code Status? Full Code Information not available 11/04/2022 Where Do You Live? [facility] Information not available 10/26/2023 Legal Guardian? No Informati on not available 10/26/2023 Do You Have A Medical Power Of Casing Builder? Yes Valid Copy In PCC, Invoked [email or web address] Information not available 11/14/2022 What Was The Date Of Your Most Recent Tobacco Screening? 12/15/2023 [email or web address] Information not available 12/15/2023 Do You Have An Out Of Hospital DNR? No Information not available 10/26/2023 What Is Your Relationship Status? Information not available 10/26/2023 Do You Use Any Illicit Or Recreational Drugs? No Information not available 11/14/2022 Has Tobacco Cessation Counseling Been Provided? No N/A As Pt Is A Non-smoker Information not available 10/26/2023 Do You Or Have You Ever Used Any Other Forms Of Tobacco Or Nicotine? No [email or web address] Information not available 11/14/2022 Sex: Unknown Functional Status None recorded. Mental Status None recorded. Family History Relationship Description Onset Age of this Age Resolved Age Notes LastModified by Organization Details LastModified Time Father Coronary arterioscler osis [email or web address] Not available 2022 20:16:51 Mother Coronary arterioscler osis [email or web address] Not available 2022 20:16:51 Medical History No medical history recorded. Immunizations Vaccine Type Date Status Note Provider Nam e and Address Organization Details Recorded Time COVID-19, mRNA, LNP-S, bivalent, PF, 50 mcg/0.5 mL or 25mcg/0.25 mL dose 1 completed Not Available [facility] 09/23/2023 15:36:10 COVID-19, mRNA, LNP-S, bivalent, PF, 50 mcg/0.5 mL or 25mcg/0.25 mL dose 1 completed Not Available [facility] 09/23/2023 15:36:10 COVID-19, mRNA, LNP-S, bivalent, PF, 50 mcg/0.5 mL or 25mcg/0.25 mL dose 2 completed Not Available [facility] 09/23/2023 15:36:10 Influenza, adjuvanted, quadrivalent, PF 3 completed Yennifer mak, [facility] 10/19/2023 12:00:11 pneumococcal polysaccharide PPV23 3 completed Yennifer mak [facility] 10/19/2023 12:54:08 Past Encounters Encounter ID Performer Location Encounter Start Date Encounter Closed Date Diagnosis/Indication Diagnosis SNOMED-CT Code Diagnosis ICD10 Code Diagnosis Note [id number] Chandrika Vasques NP [address] [address] 11/04/2024 13:20:23 11/08/2024 09:24:24 Dehydration 10391403 E86.0 resolved Pneumonia 834985733 J18. 9 resolved which started on 2/2 doxycyclin e and probiotic, now completedd ue to notable improvemen t will not order cxr todaymonit or for need Dementia 34566052 F02.80 baseline dementia, with behaviors resolving to baseline sp treatment for uti and depakotese e abovecontt razodone 50 mg qhstrazodo ne 25 mg po ammelatoni n 5mg qhsgabapen tin 100 mg po pmcontinue supportive caremonito r for behaviorsp sych eval prnweight stable, will monitor weekly Acute kidney injury 1466 9001 N17.9 see above Depressive disorder 3548 9007 F33.8 pt with agitation and increased behaviors latelycont trazodone 25 mg po q am and cont 50 mg po qhspsych consult prndepakot e 250 mg cap q amvalproic acid level in one month from start Hypocalcemia 8209778 E83 .51 pt with low calcium level 7.7choleca lciferol 800 iu admonitorc alcium level prn Anemia 354327960 D64.9 anemia and labs improved since last set with slight GABRIELA anemiaNo s/s active bleedingpl avix and xareltolab s as abovecont multivitam in with ironiron qdMonitorl abs prn Recurrent falls 01256590 2 R29.6 pt with recurrent fall, last fall on 07/08 without injuriessu pportive caresafety precaution smonitor Benign pro static hyperplasia 599591156 N40.1 continue:t erazosin 5 mg qdflomax 0.4 mg po qhs added, ? 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 PRN baclofen and APAPMonito r Acute non- ST segment elevation myocardial infarction 542037453 I21.4 contmetopr olol 25 mg bid as aboveatorv astatin 40 mg qdplavix 75 mg qdMonitor for chest pain, sobf/u with cards prn [id number] Chandrika Vasques NP [address] [address] 11/10/2024 10:27:23 11/14/2024 13:37:53 Dementia 79524251 F02.80 baseline dementia, with behaviors resolving to baseline sp treatment for uti and depakotese e abovecontt razodone 50 mg qhstrazodo ne 25 mg po ammelatoni n 5mg qhsgabapen tin 100 mg po pmcontinue supportive caremonito r for behaviorsp sych eval prnweight stable, will monitor weekly Acute kidney injury 1466 9001 N17.9 see above Depressive disorder 3548 9007 F33.8 pt with agitation and increased behaviors latelycont trazodone 25 mg po q am and cont 50 mg po qhspsych consult prndepakot e 250 mg cap q amvalproic acid level in one month from start Hypocalcemia 4607241 E83 .51 pt with low calcium level 7.7choleca lciferol 800 iu admonitorc alcium level prn Anemia 485632658 D64.9 anemia and labs improved since last set with slight GABRIELA anemiaNo s/s active bleedingpl avix and xareltolab s as abovecont multivitam in with ironiron qdMonitorl abs prn Recurrent falls 41531587 2 R29.6 pt with recurrent fall, last fall on 07/08 without injuriessu pportive caresafety precaution smonitor Benign pro static hyperplasia 419312559 N40.1 continue:t erazosin 5 mg qddc flomax 0.4 mg po qhs added, ? need, no urinary symptoms latelymoni tor Paroxysmal atrial fibrillation 225125006 I48.0 contxarelt o 20 mg qdmetoprol ol 25 mg bidmonitor for rate control Coronary arteriosclerosis 23882084 I25.10 lipitor 40 mg qdplavix 75 mg qdmetoprol ol 25 mg bidmonitor for sx Essential hypertension 62710509 I10 currently stablecont inuemetopr olol 25 mg bid (also on for rate control for AF)monitor for sx Chronic low back pain 27 7385200 M54.50 Currently comfortabl e on daily and prn ultram, diclofenac daily, HS gabapentin . PRN baclofen and APAPMonito r Acute non- ST segment elevation myocardial infarction 525581865 I21.4 contmetopr olol 25 mg bid as aboveatorv astatin 40 mg qdplavix 75 mg qdMonitor for chest pain, sobf/u with cards prn [id number] Chandrika Vasques NP [address] [address] 11/14/2024 10:40:13 11/16/2024 11:51:48 Dementia 51943490 F02.80 baseline dementia, with behaviors resolving to baseline sp treatment for uti and depakotese e abovecontt razodone 50 mg qhs and trazodone 25 mg po ammelatoni n 5mg qhsgabapen tin 100 mg po pmcontinue supportive caremonito r for behaviorsp sych eval prnweight stable, will monitor weekly Depressive disorder 3548 9007 F33.8 conttrazod one 25 mg po q am and cont 50 mg po qhspsych consult prndepakot e 250 mg cap q amvalproic acid level in one month from start Abnormal weight 31469337 R63.4 with approx 7 lbs weigth loss in last monthspeec h to re evaldietic jerri to eval for supplement sremeron 7.5 mg po qhs x 1 week, then 15 mg po qhsmonitor weights weekly [id number] LAYLA WILD CNP [address] [address] 11/26/2024 08:12:55 11/26/2024 19:08:27 Dementia 08603540 F02.80 baseline dementia, with behaviors resolving to baseline sp treatment for uti and depakotese e abovecontt razodone 50 mg qhs and trazodone 25 mg po ammelatoni n 5mg qhsgabapen tin 100 mg po pmcontinue supportive caremonito r for behaviorsp sych eval prnweight stable, will monitor weekly Depressive disorder 3548 9007 F33.8 conttrazod one 25 mg po q am and cont 50 mg po qhspsych consult prndepakot e 250 mg cap q amvalproic acid level in one month from start Aspiration pneumonia 422 763294 J69.0 Continue cefuroxime 500 mg BID for 4 days. End date 11/30/24.Con tinue ground mechanical /altered NDD2 and nectar thick liquid to minimized risk of aspiration .Monitor closely.Sp eech eval, PRN. Urinary tr act infectious disease 17211175 N39.0 Treated with ceftriaxon e, and currently is on cefuroxime .Continue until 11/30/24.Wbc stable.Mon itor s/s. Benign pro static hyperplasia 138009405 N40.1 continue:t erazosin 5 mg qddc flomax 0.4 mg po qhs added, ? need, no urinary symptoms latelymoni tor Acute kidney injury 1466 9001 N17.9 on 11/25/24, Bun 20, Cr 0.98.Encou rage PO fluid.Lucretia tor labs, CBC, CMP on Thursday. Hypocalcemia 7448413 E83 .51 pt with low calcium level 7.8 on 11/25.rajeev calciferol 800 iu admonitorc alcium level prn Anemia 770242454 D64.9 Hgb trending down.No s/s active bleedingpl avix and xareltolab s as abovecont multivitam in with iron.Added Vitamin C 500 mg daily.iron qdMonitorC BC, CMP, iron, ferritin and B12 check on Thursday. Recurrent falls 25052589 2 R29.6 pt with recurrent fall, last fall on 07/08 without injuriessu pportive caresafety precaution smonitor Paroxysmal atrial fibrillation 834561918 I48.0 contxarelt o 20 mg qdmetoprol ol 25 mg bidmonitor for rate control Coronary arteriosclerosis 10912242 I25.10 lipitor 40 mg qdplavix 75 mg qdmetoprol ol 25 mg bidmonitor for sx Essential hypertension 03173851 I10 currently stable, runs low side.Monit or BP daily for 7 days.metop rolol 25 mg bid (also on for rate control for AF)monitor for sx Chronic low back pain 27 6848555 M54.50 Currently comfortabl e on daily and prn ultram, diclofenac daily, HS gabapentin . PRN baclofen and APAPMonito r Acute non- ST segment elevation myocardial infarction 412818020 I21.4 contmetopr olol 25 mg bid as aboveatorv astatin 40 mg qdplavix 75 mg qdMonitor for chest pain, sobf/u with cards prn [id number] Chandrika Vasques NP [address] [address] 11/30/2024 11:29:59 11/30/2024 12:06:40 Anemia 778648852 D64.9 anemia and labs improved since last set with slight GABRIELA anemiaper staff having large black stool yesterday critical of hgb 6.6 with recent 7.8 hgb in hosp and appears to be losing bloodhe remains lethargic, pale, and fatigued with recent asp pna, and uti [place] [facility] [place] 11/25will send to ER for transfusio n Health Concerns Section Related Observation LastModified by Organization Detai ls LastModified Time None Recorded Concern Status LastModified by Organization Details LastModified Time None Recorded Payers Encounter Date Sequence Insurance Name Policy Number Policy Robles Covered Member ID Robles Member ID Guarantor Name 11/30/2024 1 MEDICARE [place]: [employer] All Ekaterina Nicole [id number] All Nicole Notes Date Note Type Note Provider Name and Address Organization Details Recorded Time 11/30/2024 text/html Pt is seen for a n acute rounding visit. Pt is an 84 yo male recently sent out for hypotension, resp failure, and confusion and re-admitted to [facility] after acute hospitalization with dx of asp pneumonia, UTI, metabolic encephalopathy and anemia from [facility] and returned on 11/25/24. PMH: dementia, PAF, CAD, history ischemic cardiomyopathy, history of CVA, hypertension, hyperlipidemia, AAA Workup concluded:Acute metabolic encephalopathy secondary to UTI. Urine culture was positive for E.Coli, treated with ceftriaxone and transition to oral Ceftin at discharge.Acute hypoxic respiratory failure s/t aspiration pneumonia, much improved. Initially required high flow O2, then transition to nasal cannula and discharged on room air.Speech saw him and recommends ground mechanical/altered NDD2 and nectar thick liquid to minimized risk of aspiration. Further EGD is deferred due to the potential aspiration risk.Pt presented with a Hgb of 8, which has since dropped and stabilized at 7.5. Pt's last recorded hemoglobin in 2022 was 10. Occult blood testing was negative. Given the significant anemia, Xarelto was held. Per discharge summary, plan was continue holding Xarelto while maintaining Plavix. However, patient discharged with Xarelto and Plavix together. per nursing staff he had a very large black bm yesterday. vitals 66379, 58, 96% ra, 18 rr, 97.8 temp On exam, Domitila is seen lying in bed in NAD, pale, and lethargic, fatigued. He has scattered rhonchi to lower lungs and cough. Vitals stable. He denies pain or other complaints. He is confused, seems his baseline, No respiratory distress or labored breathing noted. Labs reviewed from 11/28 and remarkable for wbc 10.6, hgb 6.6 and hct 20.2 on 11/28 Will send to ER for transfusion in light ofcritical low hgb 6.6, with black stools, fatigue, lethargy and black stools. BIMS completed 12/15/23: score 6/15 refuses on 11/04/34morse: 11/04/24 high riskMOLST: full codeHCP invoked 11/03/22 Chandrika Vasques NP [address] [facility], [address], [place], [address], [facility] 11/30/2024 12:06:38
--- OUTSIDE RECORDS SUMMARY | 2024-11-30 16:47 | XMS_ITS | Continuity of Care Document ---
Author Organization [facility], Tobias [facility] Address [address] [place] [address] Care Team Providers Care Administrative Support Assistant Name Role Phone JASMIN HATCH - 2ND FLOOR OTHER HEIDI PANDEY Primary Care Provider [phone] Assessment No assessment recorded. Plan of Treatment [...] Address Organization Details Recorded Time Recurrent falls 648868546 Active 2022 Not Available [facility] 4 15:36:09 Acute non-ST segment elevation myocardial infarction 593228566 Active 2022 Not Available [facility] 4 15:36:10 Urinary tract infectious disease 20084040 Active 2022 Not Available [facility] 4 15:36:10 Altered mental status 366366295 Active 2022 Not Available [facility] 4 15:36:10 Dysphagia 18719769 Active 2022 Not Available [facility] 4 15:36:10 Anemia 466561157 Active 2022 Not Available [facility] 4 15:36:09 Loose stool 003119244 Active 2022 Not Available [facility] 4 15:36:09 Insomnia 463458696 Active 2023 Danni Joel MD [address] [facility], [address], [place], [address] , [employer] 4 17:14:19 Osteonecrosis 095011368 Active 2023 Chandrika Vasques NP [address] [facility], [address], [place], [address] , [employer] 4 17:02:51 Candidiasis of the esophagus 31684807 Active 2023 STEPHANIE MYLES NP [address] [facility], [address], [place], [address] , [employer] 4 13:32:32 Cough 56843331 Active 2023 Chandrika Vasques NP [address] [facility], [address], [place], [address] , [facility] 4 12:48:25 Hypocalcemia 0607570 Active 2024 Chandrika Vasques NP [address] [facility], [address], [place], [address] , [facility] 5 14:31:10 Acute cystitis 50298689 Active 2018 Not Available [facility] 4 15:36:10 Dementia 38649756 Active 2018 Not Available [facility] 4 15:36:10 Closed fracture of acetabulum 73623924 Active 2018 Not Available [facility] 4 15:36:09 Osteoarthriti s 162393313 Active 2018 Not Available [facility] 4 15:36:09 Paroxysmal atrial fibrillation 906247109 Active 2018 Not Available [facility] 4 15:36:09 Coronary arteriosclero sis 68174147 Active 2018 Not Available [facility] 4 15:36:10 History of cerebrovascul ar accident 325937129 Active 2018 Not Available [facility] 4 15:36:09 Retention of urine 939877449 Active 2018 Not Available [facility] 4 15:36:09 Essential hypertension 57317313 Active 2018 Not Available [facility] 4 15:36:10 Obstructive sleep apnea syndrome 27281467 Active 2018 Not Available [facility] 4 15:36:10 Gastroesophag eal reflux disease 626236818 Active 2018 Not Available [facility] 4 15:36:09 Diverticuliti s 691092674 Active 2018 Not Available [facility] 4 15:36:09 Mixed hyperlipidemi a 399078341 Active 2018 Not Available [facility] 4 15:36:09 Depressive disorder 36581515 Active 2018 Not Available [facility] 4 15:36:09 Chronic low back pain 116745091 Active 2018 Not Available [facility] 4 15:36:09 Fracture of scapular body 90069382 Active 2018 Not Available [facility] 4 15:36:10 Teardrop fracture of cervical vertebra 662095945 Active 2018 Not Available [facility] 4 15:36:09 Unsteady gait Active 2018 Not Available [facility] 4 15:36:09 Gastroesophag eal reflux disease without esophagitis 493123434 Active 2018 Not Available [facility] 4 15:36:09 Impaired cognition 072452086 Active 2018 Not Available [facility] 4 15:36:09 Problem Notes None recorded. Medical Equipment None Reported. Allergies No known drug allergies Medications Name Sig Start Date Stop Date Status Note LastModified by Organization Details LastModified Time tramadol 50 mg tablet 1 tab po daily and q 4 hours prn pain 024 active Not Available Not Available Not Avai lable Vitals Date Recorded Body height Heart rate Oxygen saturation Oxygen saturation in Arterial blood by Pulse oximetry Systolic blood pressure Diastolic blood pressure Provider Name and Address Organization Details Last Updated DateTime 5 175.26 cm 65 /min 95 % 95 % 109 mm[Hg] 47 mm[Hg] JOOYUN WILD, DRYING MACHINE BACK TENDER [address], [address], [place], [address], [facility] 18:54:12 Social History Question Answer Notes LastModified by Organizat ion Details LastModified Time Tobacco Smoking Status Never Smoker Cole Pete MD [address], [address], [place], [address], [facility] 11/03/2022 13:48:54 Do You Have An Advance Directive? Yes [email or web address] Information not available 11/04/2022 What Is Your Level Of Alcohol Consumption? None [email or web address] Information not available 11/03/2022 What Is Your Code Status? Full Code [email or web address] Information not available 11/04/2022 Where Do You Live? [facility] Information not available 10/26/2023 Legal Guardian? No Informati on not available 10/26/2023 Do You Have A Medical Power Of Supervisor Operations? Yes Valid Copy In PCC, Invoked [email or web address] Information not available 11/14/2022 What Was The Date Of Your Most Recent Tobacco Screening? 12/15/2023 [email or web address] Information not available 12/15/2023 Do You Have An Out Of Hospital DNR? No Information not available 10/26/2023 What Is Your Relationship Status? Information not available 10/26/2023 Do You Use Any Illicit Or Recreational Drugs? No [email or web address] Information not available 11/14/2022 Has Tobacco Cessation Counseling Been Provided? No N/A As Pt Is A Non-smoker Information not available 10/26/2023 Do You Or Have You Ever Used Any Other Forms Of Tobacco Or Nicotine? No [email or web address] Information not available 11/14/2022 Sex: Unknown Functional Status None recorded. Mental Status None recorded. Family History Relationship Description Onset Age of this Age Resolved Age Notes LastModified by Organization Details LastModified Time Father Coronary arterioscler osis [email or web address] Not available 2022 20:16:51 Mother Coronary arterioscler osis [email or web address] Not available 2022 20:16:51 Medical History No medical history recorded. Immunizations Vaccine Type Date Status Note Provider Nam e and Address Organization Details Recorded Time COVID-19, mRNA, LNP-S, bivalent, PF, 50 mcg/0.5 mL or 25mcg/0.25 mL dose 1 completed Not Available [facility] 09/23/2023 15:36:10 COVID-19, mRNA, LNP-S, bivalent, PF, 50 mcg/0.5 mL or 25mcg/0.25 mL dose 1 completed Not Available [facility] 09/23/2023 15:36:10 COVID-19, mRNA, LNP-S, bivalent, PF, 50 mcg/0.5 mL or 25mcg/0.25 mL dose 2 completed Not Available [facility] 09/23/2023 15:36:10 Influenza, adjuvanted, quadrivalent, PF 3 completed Yennifer mak [facility] 10/19/2023 12:00:11 pneumococcal polysaccharide PPV23 3 completed Yennifer mak [facility] 10/19/2023 12:54:08 Past Encounters Encounter ID Performer Location Encounter Start Date Encounter Closed Date Diagnosis/Indication Diagnosis SNOMED-CT Code Diagnosis ICD10 Code Diagnosis Note [id number] Chandrika Vasques NP [address] [address] 11/04/2024 13:20:23 11/08/2024 09:24:24 Dehydration 93483347 E86.0 resolved Pneumonia 238007050 J18. 9 resolved which started on 2/2 doxycyclin e and probiotic, now completedd ue to notable improvemen t will not order cxr todaymonit or for need Dementia 17024633 F02.80 baseline dementia, with behaviors resolving to [...] level in one month from start Hypocalcemia 4410545 E83 .51 pt with low calcium level 7.7choleca lciferol 800 iu admonitorc alcium level prn Anemia 725985392 D64.9 anemia and labs improved since last set with slight GABRIELA anemiaNo s/s active bleedingpl avix and xareltolab s as abovecont multivitam in with ironiron qdMonitorl abs prn Recurrent falls 25449676 2 R29.6 pt with recurrent fall, last fall on 07/08 without injuriessu pportive caresafety precaution smonitor Benign pro static hyperplasia 402619308 N40.1 continue:t erazosin 5 mg qdflomax 0.4 mg po qhs added, ? need to continue intermediate manager as already on terazosinm onitor Paroxysmal atrial fibrillation 376238054 I48.0 contxarelt o 20 mg qdmetoprol ol 25 mg bidmonitor for rate control Coronary arteriosclerosis 81182594 I25.10 lipitor 40 mg qdplavix 75 mg qdmetoprol ol 25 mg bidmonitor for sx Essential hypertension 03930534 I10 currently stablecont inue metoprolol 25 mg bid (also on for rate control for AF)monitor for sx Chronic low back pain 27 5675554 M54.50 Currently comfortabl e on daily and prn ultram, diclofenac daily, HS gabapentin . PRN baclofen and APAPMonito r Acute non- ST segment elevation myocardial infarction 213107974 I21.4 contmetopr olol 25 mg bid as aboveatorv astatin 40 mg qdplavix 75 mg qdMonitor for chest pain, sobf/u with cards prn [id number] Chandrika Vasques NP [address] [address] 11/10/2024 10:27:23 11/14/2024 13:37:53 Dementia 73678592 F02.80 baseline dementia, with behaviors resolving to [...] level in one month from start Hypocalcemia 1023718 E83 .51 pt with low calcium level 7.7choleca lciferol 800 iu admonitorc alcium level prn Anemia 436700097 D64.9 anemia and labs improved since last set with slight GABRIELA anemiaNo s/s active bleedingpl avix and xareltolab s as abovecont multivitam in with ironiron qdMonitorl abs prn Recurrent falls 27145720 2 R29.6 pt with recurrent fall, last fall on 07/08 without injuriessu pportive caresafety precaution smonitor Benign pro static hyperplasia 090455182 N40.1 continue:t erazosin 5 mg qddc flomax 0.4 mg po qhs added, ? need, no urinary symptoms latelymoni tor Paroxysmal atrial fibrillation 873557198 I48.0 contxarelt o 20 mg qdmetoprol ol 25 mg bidmonitor for rate control Coronary arteriosclerosis 87596599 I25.10 lipitor 40 mg qdplavix 75 mg qdmetoprol ol 25 mg bidmonitor for sx Essential hypertension 65905886 I10 currently stablecont inuemetopr olol 25 mg bid (also on for rate control for AF)monitor for sx Chronic low back pain 27 2449741 M54.50 Currently comfortabl e on daily and prn ultram, diclofenac daily, HS gabapentin . PRN baclofen and APAPMonito r Acute non- ST segment elevation myocardial infarction 328823590 I21.4 contmetopr olol 25 mg bid as aboveatorv astatin 40 mg qdplavix 75 mg qdMonitor for chest pain, sobf/u with cards prn [id number] Chandrika Vasques NP [address] [address] 11/14/2024 10:40:13 11/16/2024 11:51:48 Dementia 36936549 F02.80 baseline dementia, with behaviors resolving to [...] in one month from start Abnormal weight 75401405 R63.4 with approx 7 lbs weigth loss in last monthspeec h to re evaldietic jerri to eval for supplement sremeron 7.5 mg po qhs x 1 week, then 15 mg po qhsmonitor weights weekly [id number] LAYLA WILD, DRYING MACHINE BACK TENDER [address] [address] 11/26/2024 08:12:55 11/26/2024 19:08:27 Dementia 30009259 F02.80 baseline dementia, with behaviors resolving to [...] one month from start Aspiration pneumonia 422 117374 J69.0 Continue cefuroxime 500 mg BID for 4 days. End date 11/30/24.Con tinue ground mechanical /altered NDD2 and nectar thick liquid to minimized risk of aspiration .Monitor closely.Sp eech eval, PRN. Urinary tr act infectious disease 52090864 N39.0 Treated with ceftriaxon e, and currently is on cefuroxime .Continue until 11/30/24.Wbc stable.Mon itor s/s. Benign pro static hyperplasia 624282603 N40.1 continue:t erazosin 5 mg qddc flomax 0.4 mg po qhs added, ? need, no urinary symptoms latelymoni tor Acute kidney injury 1466 9001 N17.9 on 11/25/24, Bun 20, Cr 0.98.Encou rage PO fluid.Lucretia tor labs, CBC, CMP on Thursday. Hypocalcemia 6715010 E83 .51 pt with low calcium level 7.8 on 11/25.rajeev calciferol 800 iu admonitorc alcium level prn Anemia 058389340 D64.9 Hgb trending down.No s/s active bleedingpl avix and xareltolab s as abovecont multivitam in with iron.Added Vitamin C 500 mg daily.iron qdMonitorC BC, CMP, iron, ferritin and B12 check on Thursday. Recurrent falls 10491335 2 R29.6 pt with recurrent fall, last fall on 07/08 without injuriessu pportive caresafety precaution smonitor Paroxysmal atrial fibrillation 154807366 I48.0 contxarelt o 20 mg qdmetoprol ol 25 mg bidmonitor for rate control Coronary arteriosclerosis 72681664 I25.10 lipitor 40 mg qdplavix 75 mg qdmetoprol ol 25 mg bidmonitor for sx Essential hypertension 58844010 I10 currently stable, runs low side.Monit or BP daily for 7 days.metop rolol 25 mg bid (also on for rate control for AF)monitor for sx Chronic low back pain 27 2013213 M54.50 Currently comfortabl e on daily and prn ultram, diclofenac daily, HS gabapentin . PRN baclofen and APAPMonito r Acute non- ST segment elevation myocardial infarction 703550572 I21.4 contmetopr olol 25 mg bid as aboveatorv astatin 40 mg qdplavix 75 mg qdMonitor for chest pain, sobf/u with cards prn Health Concerns Section Related Observation LastModified by Organization Detai ls LastModified Time None Recorded Concern Status LastModified by Organization Details LastModified Time None Recorded Payers Encounter Date Sequence Insurance Name Policy Number Policy Robles Covered Member ID Robles Member ID Guarantor Name 11/26/2024 1 MEDICARE B-[place]: [employer] All B Bonnie [id number] All Nicole Notes Date Note Type Note Provider Name and Address Organization Details Recorded Time 11/26/2024 text/html Jason is an 84 y o male re-admitted to [facility] after acute hospitalization of pneumonia, UTI, metabolic encephalopathy and anemia from [facility]. PMH: dementia, PAF, CAD, history ischemic cardiomyopathy, history of CVA, hypertension, hyperlipidemia, AAA Pt was sent out to hospital due to AMS with hypotension in 70s. Hospital work up revealed metabolic encephalopathy, UTI and aspiration with acute hypoxic respiratory failure and acute on chronic anemia. Acute metabolic encephalopathy secondary to UTI. Urine culture was positive for E.Coli, treated with ceftriaxone and transition to oral Cefin at discharge.Acute hypoxic respiratory failure s/t aspiration [...] held. Per discharge summary, plan was continue holing Xarelto while maintaining Plavix. However, patient discharged with Xarelto and Plavix together. On exam, he is sitting in his bed, watching TV, NAD. He denies pain or other complaints. He is confused, seems his baseline, No respiratory distress noted. BIMS completed 12/15/23: score 6/15 refuses on 11/04/34morse: 11/04/24 high riskMOLST: full codeHCP invoked 11/03/22 LAYLA WILD, DRYING MACHINE BACK TENDER [address] [facility], [address], [place], [address], [facility] 11/28/2024 13:41:26
--- OUTSIDE RECORDS SUMMARY | 2024-11-30 16:47 | XMS_ITS | Encounter Summary ---
Author Organization [facility] Address [address] [place] [address] Care Team Providers Care Splicing Technician Name Role Phone Cole Pete MD Primary Care Provider [phone] Encounter Details Date Type Department Care Team (Late st Contact Info) Description 09/01/2024 Lab Requisition [facility] - Main Lab [address] [facility] [place] [address] Cole Pete MD [address] [place] [address] [address] [facility] [address] Encounter for therapeutic drug level monitoring; Essential (primary) hypertension Social History Tobacco Use Types Packs/Day Years [...] Associated Diagnosis Comments COMPLETE BLOOD COUNT Routine 09/02/2024 6:59 AM EST Encounter for therapeutic drug level monitoring Essential (primary) hypertension VALPROIC ACID LEVEL, TOTAL Routine 09/02/2024 6:59 AM EST Encounter for therapeutic drug level monitoring Essential (primary) hypertension BASIC METABOLIC PANEL Routine 09/02/2024 6:59 AM EST Encounter for therapeutic drug level monitoring Essential (primary) hypertension documented in this encounter Results * (ABNORMAL) Valproic acid level, total (09/02/2024 6:59 AM EST) Valproic Acid, Total 11(L) 50 - 100 mcg/mL LAB CHEMISTRY METHOD 09/02/2024 11:14 AM [facility] Comment:Results verified by repeat testing Blood Venous blood specimen / Unknown Venipuncture / Unknown 09/02/2024 6:59 AM EST 09/02/2024 9:09 AM EST us Cole Pete MD LAB BLOOD ORDERABLES Final Resul t [facility] [address] [place] [address], [place] [phone] * (ABNORMAL) Basic metabolic panel (09/02/2024 6:59 AM EST) Sodium 140 133 - 145 mmol/L LAB CHEMISTRY METHOD 09/02/2024 10:43 AM [facility] Potassium 5.0 3.5 - 5.5 mmol/L LAB CHEMISTRY METHOD 09/02/2024 10:43 AM [facility] Chloride 111(H) 96 - 110 mmol/L LAB CHEMISTRY METHOD 09/02/2024 10:43 AM [facility] CO2 26 21 - 32 mmol/L LAB CHEMISTRY METHOD 09/02/2024 10:43 AM [facility] Anion Gap 3 3 - 11 LAB CHEMISTRY METHOD 09/02/2024 10:43 AM [facility] Glucose 93 70 - 100 mg/dL LAB CHEMISTRY METHOD 09/02/2024 10:43 AM [facility] BUN 26(H) 5 - 25 mg/dL LAB CHEMISTRY METHOD 09/02/2024 10:43 AM [facility] Creatinine 1.40(H) 0.70 - 1.30 mg/dL LAB CHEMISTRY METHOD 09/02/2024 10:43 AM [facility] eGFR 49(L) >=60 mL/min/1. 73m2 LAB CHEMISTRY METHOD 09/02/2024 10:43 AM EST [facility] Comment:Calculation based on the??Chronic Kidney Disease Epidemiology Collaboration (CKD-EPI) equation refit??without adjustment for race. BUN/Creatinine Ratio 18.6 LAB CHEMISTRY METHOD 09/02/2024 10:43 AM [facility] Calcium 8.1(L) 8.5 - 10.5 mg/dL LAB CHEMISTRY METHOD 09/02/2024 10:43 AM [facility] Blood Venous blood specimen / Unknown Venipuncture / Unknown 09/02/2024 6:59 AM EST 09/02/2024 9:09 AM EST us Cole Pete MD LAB BLOOD ORDERABLES Final Resul t [facility] [address] [place] [address], * (ABNORMAL) Complete blood count (09/02/2024 6:59 AM EST) WBC 7.4 4.8 - 10.8 K/mcL LAB HEMETOLOGY METHOD 09/02/2024 10:32 AM [facility] RBC 2.60(L) 4.50 - 5.50 M/mcL LAB HEMETOLOGY METHOD 09/02/2024 10:32 AM [facility] Hemoglobin 7.4(L) 13.5 - 17.5 g/dL LAB HEMETOLOGY METHOD 09/02/2024 10:32 AM [facility] Hematocrit 22.8(L) 42.0 - 54.0 % LAB HEMETOLOGY METHOD 09/02/2024 10:32 AM [facility] MCV 89.1 79.0 - 98.0 FL LAB HEMETOLOGY METHOD 09/02/2024 10:32 AM [facility] MCH 28.9 27.0 - 32.0 pcg LAB HEMETOLOGY METHOD 09/02/2024 10:32 AM EST [facility] MCHC 32.5 32.0 - 37.0 g/dL LAB HEMETOLOGY METHOD 09/02/2024 10:32 AM EST [facility] RDW 15.7(H) 11.0 - 15.0 % LAB HEMETOLOGY METHOD 09/02/2024 10:32 AM [facility] Platelets 283 130 - 400 K/mcL LAB HEMETOLOGY METHOD 09/02/2024 10:32 AM EST [facility] MPV 10.4 7.0 - 11.0 FL LAB HEMETOLOGY METHOD 09/02/2024 10:32 AM [facility] NRBC 0.0 <1.0 % LAB HEMETOLOGY METHOD 09/02/2024 10:32 AM [facility] NRBC Absolute 0.00 <0.10 K/mcL LAB HEMETOLOGY METHOD 09/02/2024 10:32 AM [facility] Blood Venous blood specimen / Unknown Venipuncture / Unknown 09/02/2024 6:59 AM EST 09/02/2024 9:09 AM EST us Cole Pete MD LAB BLOOD ORDERABLES Final Resul t [facility] [address] [place] [address], documented in this encounter Visit Diagnoses Diagnosis Encounter for therapeutic drug level monitoring Essential (primary) hypertension Unspecified essential hypertension documented in this encounter Care Teams Splicing Technician Relationship Specialty Start Date End Date Cole Pete MD [address] [place] [address], [address] PCP - General Family Medicine 07/31/24 documented as of this encounter
--- OUTSIDE RECORDS SUMMARY | 2024-11-30 16:47 | XMS_ITS | Clinical Summary ---
Author Organization [address] Address [address] [place] [address] Phone Care Team Providers Care Lagging Machine Operator Name Role Phone Cole Pete MD Primary Care Provider [phone] Encounters Date Type Department Care Team Description 11/28/[address] [facility] Lab [address] [place] [phone] Cole Pete MD Anemia, unspecified 10/07/[address] [facility] Lab [address] [place] [phone] Cole Pete MD Paroxysmal atrial fibrillation (CMS/HCC); Hyperkalemia; Unspecified dementia, unspecified severity, without behavioral disturbance, psychotic disturbance, mood disturbance, and anxiety (CMS/HCC) 10/05/[address] [facility] Lab [address] [place] [phone] Cole Pete MD Unspecified atrial fibrillation (CMS/HCC) 10/03/[address] [facility] Lab [address] [place] [phone] Cole Pete MD Muscle weakness (generalized) 09/06/[address] [facility] Lab [address] [place] [phone] Cole Pete MD Unspecified dementia, unspecified severity, without behavioral disturbance, psychotic disturbance, mood disturbance, and anxiety (CMS/HCC); Unspecified atrial fibrillation (CMS/HCC) 09/06/[address] [facility] Lab [address] [place] [phone] Cole Pete MD Dysuria 09/05/[address] [facility] Lab [address] [place] [phone] Cole Pete MD Essential (primary) hypertension; Encounter for therapeutic drug level monitoring 09/01/[address] [facility] Lab [address] [place] [phone] Cole Pete MD Encounter for therapeutic drug level monitoring; Essential (primary) hypertension from Last 3 Months Social History Tobacco Use Types Packs/Day Years Used Date Smoking Tobacco: Never Assessed Sex and Gender Information Value Date Recorded Sex Assigned at Not on file Legal Sex Male 7:39 AM EST Gender Identity Not on file Sexual Orientation Not on file Plan of Treatment Health Maintenance Due Date Last Done Comments DTaP,Tdap,and Td Vaccines (1 - Tdap) 1959 Pneumococcal Vaccine: 50+ Years (1 of 1 - PCV) 1989 Zoster Vaccines (1 of 2) 1989 RSV Immunization Adult Patients (1 - 1-dose 75+ series) 2014 COVID-19 Vaccine (1 - 2023- season) 2024 Cholesterol Screening (Lipid Panel) 07/26/2024 Depression Screening 07/26/2024 Falls Risk Assessment 07/26/2024 Medicare Annual Wellness Visit 07/26/2024 Social Influencers of Health Screening 07/26/2024 Influenza Vaccine (Season Ended) 2025 Hypertension/CHF/CAD Annual BMP Blood Test 11/28/2025 11/28/2024, 10/10/2024, 10/06/2024, Additional history exists HIB Vaccines Aged Out No longer eligi ble based on patient's age to complete this topic HPV Vaccines Aged Out No longer eligi ble based on patient's age to complete this topic Hepatitis A Vaccines Aged Out No long er eligible based on patient's age to complete this topic Hepatitis B Vaccines Aged Out No long er eligible based on patient's age to complete this topic IPV Vaccines Aged Out No longer eligi ble based on patient's age to complete this topic MMR Vaccines Aged Out No longer eligi ble based on patient's age to complete this topic Meningococcal ACWY Vaccine Aged Out N o longer eligible based on patient's age to complete this topic Meningococcal B Vacine Aged Out No lo nger eligible based on patient's age to complete this topic RSV Immunization Patients Under 20 months Aged Out No longer eligible based on patient's age to complete this topic Varicella Vaccines Aged Out No longer eligible based on patient's age to complete this topic Procedures Procedure Name Priority Date/Time Associated Diagnosis Comments IRON AND TIBC Routine 11/28/2024 5:29 AM EDT Anemia, unspecified VITAMIN B12 Routine 11/28/2024 5:29 AM EDT Anemia, unspecified FERRITIN Routine 11/28/2024 5:29 AM EDT Anemia, unspecified COMPREHENSIVE METABOLIC PANEL Routine 11/28/2024 5:29 AM EDT Anemia, unspecified COMPLETE BLOOD COUNT Routine 11/28/2024 5:29 AM EDT Anemia, unspecified BASIC METABOLIC PANEL Routine 10/10/2024 6:24 AM EST Paroxysmal atrial fibrillation (CMS/HCC) Hyperkalemia Unspecified dementia, unspecified severity, without behavioral disturbance, psychotic disturbance, mood disturbance, and anxiety (CMS/HCC) COMPLETE BLOOD COUNT Routine 10/10/2024 6:24 AM EST Paroxysmal atrial fibrillation (CMS/HCC) Hyperkalemia Unspecified dementia, unspecified severity, without behavioral disturbance, psychotic disturbance, mood disturbance, and anxiety (CMS/HCC) BASIC METABOLIC PANEL Routine 10/06/2024 7:08 AM EST Unspecified atrial fibrillation (CMS/HCC) COMPLETE BLOOD COUNT Routine 10/06/2024 7:08 AM EST Unspecified atrial fibrillation (CMS/HCC) BASIC METABOLIC PANEL Routine 10/03/2024 6:54 AM EST Muscle weakness (generalized) COMPLETE BLOOD COUNT Routine 10/03/2024 6:54 AM EST Muscle weakness (generalized) BASIC METABOLIC PANEL Routine 09/07/2024 6:30 AM EST Unspecified dementia, unspecified severity, without behavioral disturbance, psychotic disturbance, mood disturbance, and anxiety (CMS/HCC) Unspecified atrial fibrillation (CMS/HCC) COMPLETE BLOOD COUNT Routine 09/07/2024 6:30 AM EST Unspecified dementia, unspecified severity, without behavioral disturbance, psychotic disturbance, mood disturbance, and anxiety (CMS/HCC) Unspecified atrial fibrillation (CMS/HCC) URINALYSIS WITH REFLEX MICROSCOPIC AND CULTURE Routine 09/06/2024 6:15 AM EST Dysuria SHARMA URINE CULTURE TUBE Routine 09/06/2024 6:15 AM EST Dysuria URINALYSIS WITH REFLEX MICROSCOPIC AND CULTURE Routine 09/06/2024 6:15 AM EST Dysuria CULTURE URINE Routine 09/06/2024 6:15 AM EST Dysuria VALPROIC ACID LEVEL, TOTAL Routine 09/05/2024 5:15 AM EST Essential (primary) hypertension Encounter for therapeutic drug level monitoring BASIC METABOLIC PANEL Routine 09/05/2024 5:15 AM EST Essential (primary) hypertension Encounter for therapeutic drug level monitoring COMPLETE BLOOD COUNT Routine 09/05/2024 5:15 AM EST Essential (primary) hypertension Encounter for therapeutic drug level monitoring VALPROIC ACID LEVEL, TOTAL Routine 09/02/2024 6:59 AM EST Encounter for therapeutic drug level monitoring Essential (primary) hypertension BASIC METABOLIC PANEL Routine 09/02/2024 6:59 AM EST Encounter for therapeutic drug level monitoring Essential (primary) hypertension COMPLETE BLOOD COUNT Routine 09/02/2024 6:59 AM EST Encounter for therapeutic drug level monitoring Essential (primary) hypertension from Last 3 Months Results * (ABNORMAL) Iron and TIBC (11/28/2024 5:29 AM EDT) Pathologist [facility] Iron 40(L) 50 - 160 mcg/dL LAB CHEMISTRY METHOD 11/28/2024 11:59 AM EDT [facility] LAB TIBC 98(L) 250 - 450 mcg/dL LAB CHEMISTRY METHOD 11/28/2024 11:59 AM EDT [facility] LAB Iron Saturation 41 20 - 50 % LAB CHEMISTRY METHOD 11/28/2024 11:59 AM EDT [facility] LAB Blood Venous blood specimen / Unknown Venipuncture / Unknown 11/28/2024 5:29 AM EDT 11/28/2024 10:49 AM EDT us Cole Pete MD LAB BLOOD ORDERABLES Final Resul t [facility] LAB [address] [place] [address], [place] [phone] * (ABNORMAL) Complete blood count (11/28/2024 5:29 AM EDT) Only the most recent of7 resultswithin the time period is included. [facility] WBC 10.6 4.8 - 10.8 K/mcL LAB HEMETOLOGY METHOD 11/28/2024 11:50 AM EDT [facility] LAB RBC 2.20(L) 4.50 - 5.50 M/mcL LAB HEMETOLOGY METHOD 11/28/2024 11:50 AM EDT [facility] LAB Hemoglobin 6.6(L) 13.5 - 17.5 g/dL LAB HEMETOLOGY METHOD 11/28/2024 11:50 AM EDT [facility] LAB Hematocrit 20.2(L) 42.0 - 54.0 % LAB HEMETOLOGY METHOD 11/28/2024 11:50 AM EDT [facility] LAB MCV 90.2 79.0 - 98.0 FL LAB HEMETOLOGY METHOD 11/28/2024 11:50 AM EDT [facility] LAB MCH 29.5 27.0 - 32.0 pcg LAB HEMETOLOGY METHOD 11/28/2024 11:50 AM EDT [facility] LAB MCHC 32.7 32.0 - 37.0 g/dL LAB HEMETOLOGY METHOD 11/28/2024 11:50 AM EDT [facility] LAB RDW 17.8(H) 11.0 - 15.0 % LAB HEMETOLOGY METHOD 11/28/2024 11:50 AM EDT [facility] LAB Platelets 260 130 - 400 K/mcL LAB HEMETOLOGY METHOD 11/28/2024 11:50 AM EDT [facility] LAB MPV 10.5 7.0 - 11.0 FL LAB HEMETOLOGY METHOD 11/28/2024 11:50 AM EDT [facility] LAB NRBC 0.0 <1.0 % LAB HEMETOLOGY METHOD 11/28/2024 11:50 AM EDT [facility] LAB NRBC Absolute 0.00 <0.10 K/mcL LAB HEMETOLOGY METHOD 11/28/2024 11:50 AM T [facility] LAB Blood Venous blood specimen / Unknown Venipuncture / Unknown 11/28/2024 5:29 AM EDT 11/28/2024 10:49 AM EDT us Cole Pete MD LAB BLOOD ORDERABLES Final Resul t [facility] LAB [address] [place] [address], * Ferritin (11/28/2024 5:29 AM EDT) Ferritin 219 26 - 388 ng/mL LAB CHEMISTRY METHOD 11/28/2024 12:21 PM EDT [facility] LAB Blood Venous blood specimen / Unknown Venipuncture / Unknown 11/28/2024 5:29 AM EDT 11/28/2024 10:49 AM EDT Cole Pete MD LAB BLOOD ORDERABLES Final Resul t [facility] [address] [place] [address], [place] [phone] * Vitamin B12 (11/28/2024 5:29 AM EDT) Pathologist [facility] Vitamin B-12 479 250 - 900 pcg/mL LAB CHEMISTRY METHOD 11/28/2024 12:21 PM EDT [facility] LAB Blood Venous blood specimen / Unknown Venipuncture / Unknown 11/28/2024 5:29 AM EDT 11/28/2024 10:49 AM EDT Cole Pete MD LAB BLOOD ORDERABLES Final Resul t Performing Organization Address City/[facility]/ZIP Co de Phone Number [facility] LAB [address] [place] [address], [place] [phone] * (ABNORMAL) Comprehensive metabolic panel (11/28/2024 5:29 AM EDT) [facility] Sodium 141 133 - 145 mmol/L LAB CHEMISTRY METHOD 11/28/2024 2:44 PM EDT [facility] LAB Potassium 3.9 3.5 - 5.5 mmol/L LAB CHEMISTRY METHOD 11/28/2024 2:44 PM EDT [facility] LAB Chloride 110 96 - 110 mmol/L LAB CHEMISTRY METHOD 11/28/2024 2:44 PM EDT [facility] LAB CO2 26 21 - 32 mmol/L LAB CHEMISTRY METHOD 11/28/2024 2:44 PM EDT [facility] LAB Anion Gap 5 3 - 11 LAB CHEMISTRY METHOD 11/28/2024 2:44 PM [facility] LAB Glucose 78 70 - 100 mg/dL LAB CHEMISTRY METHOD 11/28/2024 2:44 PM [facility] LAB BUN 17 5 - 25 mg/dL LAB CHEMISTRY METHOD 11/28/2024 2:44 PM [facility] LAB Creatinine 1.07 0.70 - 1.30 mg/dL LAB CHEMISTRY METHOD 11/28/2024 2:44 PM [facility] LAB eGFR 68 >=60 mL/min/1. 73m2 LAB CHEMISTRY METHOD 11/28/2024 2:44 PM [facility] LAB Comment:Calculation based on the??Chronic Kidney Disease Epidemiology Collaboration (CKD-EPI) equation refit??without adjustment for race. BUN/Creatinine Ratio 15.9 LAB CHEMISTRY METHOD 11/28/2024 2:44 PM [facility] LAB Calcium 7.3(L) 8.5 - 10.5 mg/dL LAB CHEMISTRY METHOD 11/28/2024 2:44 PM [facility] LAB AST (SGOT) 10 10 - 42 unit/L LAB CHEMISTRY METHOD 11/28/2024 2:44 PM [facility] LAB ALT (SGPT) 7(L) 10 - 60 unit/L LAB CHEMISTRY METHOD 11/28/2024 2:44 PM [facility] LAB Alkaline Phosphatase 51 42 - 121 unit/L LAB CHEMISTRY METHOD 11/28/2024 2:44 PM [facility] LAB Total Protein 4.7(L) 6.0 - 8.0 g/dL LAB CHEMISTRY METHOD 11/28/2024 2:44 PM [facility] LAB Albumin 1.7(L) 3.2 - 5.0 g/dL LAB CHEMISTRY METHOD 11/28/2024 2:44 PM [facility] LAB Total Bilirubin 0.2 0.0 - 1.4 mg/dL LAB CHEMISTRY METHOD 11/28/2024 2:44 PM EDT [facility] LAB Blood Venous blood specimen / Unknown Venipuncture / Unknown 11/28/2024 5:29 AM EDT 11/28/2024 10:49 AM EDT us Cole Pete MD LAB BLOOD ORDERABLES Final Resul t [facility] LAB [address] [place] [address], * (ABNORMAL) Basic metabolic panel (10/10/2024 6:24 AM EST) Only the most recent of6 resultswithin the time period is included. Sodium 140 133 - 145 mmol/L LAB CHEMISTRY METHOD 10/10/2024 1:48 PM [facility] LAB Potassium 4.3 3.5 - 5.5 mmol/L LAB CHEMISTRY METHOD 10/10/2024 1:48 PM [facility] LAB Chloride 110 96 - 110 mmol/L LAB CHEMISTRY METHOD 10/10/2024 1:48 PM [facility] LAB CO2 27 21 - 32 mmol/L LAB CHEMISTRY METHOD 10/10/2024 1:48 PM [facility] LAB Anion Gap 3 3 - 11 LAB CHEMISTRY METHOD 10/10/2024 1:48 PM [facility] LAB Glucose 82 70 - 100 mg/dL LAB CHEMISTRY METHOD 10/10/2024 1:48 PM [facility] BUN 20 5 - 25 mg/dL LAB CHEMISTRY METHOD 10/10/2024 1:48 PM [facility] LAB Creatinine 1.21 0.70 - 1.30 mg/dL LAB CHEMISTRY METHOD 10/10/2024 1:48 PM [facility] LAB eGFR 59(L) >=60 mL/min/1. 73m2 LAB CHEMISTRY METHOD 10/10/2024 1:48 PM EST [facility] LAB Comment:Calculation based on the??Chronic Kidney Disease Epidemiology Collaboration (CKD-EPI) equation refit??without adjustment for race. BUN/Creatinine Ratio 16.5 LAB CHEMISTRY METHOD 10/10/2024 1:48 PM [facility] LAB Calcium 7.8(L) 8.5 - 10.5 mg/dL LAB CHEMISTRY METHOD 10/10/2024 1:48 PM [facility] LAB Blood Venous blood specimen / Unknown Venipuncture / Unknown 10/10/2024 6:24 AM EST 10/10/2024 11:29 AM EST us Cole Pete MD LAB BLOOD ORDERABLES Final Resul t [facility] LAB [address] [place] [address], [place] [phone] * (ABNORMAL) Urinalysis with reflex microscopic and culture (09/06/2024 6:15 AM EST) Specific [place] Urine 1.019 1.003 - 1.030 LAB URINALYSIS - AUTOMATED METHOD 09/06/2024 9:34 AM [facility] LAB pH, Urine 6.5 5.0 - 8.0 pH LAB URINALYSIS - AUTOMATED METHOD 09/06/2024 9:34 AM [facility] Leukocytes, Urine Large(A) Negative LAB URINALYSIS - AUTOMATED METHOD 09/06/2024 9:34 AM [facility] LAB Nitrite, Urine Negative Negative LAB URINALYSIS - AUTOMATED METHOD 09/06/2024 9:34 AM [facility] Protein, Urine 30(A) <=Trace mg/dL LAB URINALYSIS - AUTOMATED METHOD 09/06/2024 9:34 AM [facility] Glucose, Urine Negative Negative mg/dL LAB URINALYSIS - AUTOMATED METHOD 09/06/2024 9:34 AM [facility] Ketones, Urine Trace(A) Negative mg/dL LAB URINALYSIS - AUTOMATED METHOD 09/06/2024 9:34 AM [facility] Urobilinogen , Urine 0.2 0.2 - 1.0 mg/dL LAB URINALYSIS - AUTOMATED METHOD 09/06/2024 9:34 AM [facility] Bilirubin, Urine Negative Negative LAB URINALYSIS - AUTOMATED METHOD 09/06/2024 9:34 AM [facility] Blood, Urine Moderate(A) Negative LAB URINALYSIS - AUTOMATED METHOD 09/06/2024 9:34 AM [facility] RBC, Urine 17.5(H) 0 - 4 /HPF LAB URINALYSIS - AUTOMATED METHOD 09/06/2024 9:34 AM [facility] WBC, Urine 127.4(H) 0 - 4 /HPF LAB URINALYSIS - AUTOMATED METHOD 09/06/2024 9:34 AM [facility] Squamous Epithelial, Urine 10 0 - 60 /LPF LAB URINALYSIS - AUTOMATED METHOD 09/06/2024 9:34 AM [facility] Bacteria, Urine Many(A) Negative /HPF LAB URINALYSIS - AUTOMATED METHOD 09/06/2024 9:34 AM [facility] Hyaline Casts, Urine 3.8(H) 0 - 3 /LPF LAB URINALYSIS - AUTOMATED METHOD 09/06/2024 9:34 AM [facility] Urine Urine specimen obtained by clean catch procedure / Unknown Non-blood Collection / Unknown 09/06/2024 6:15 AM EST 09/06/2024 8:41 AM EST us Cole Pete MD LAB URINE ORDERABLES Final Resul t [facility] [address] [place] [address], * Sharma urine culture tube (09/06/2024 6:15 AM EST) Extra Tube Hold for add-ons. 09/06/2024 10:01 AM EST [facility] LAB Comment:Auto resulted. Urine Urine specimen obtained by clean catch procedure / Unknown Non-blood Collection / Unknown 09/06/2024 6:15 AM EST 09/06/2024 8:41 AM EST us Cole Pete MD LAB URINE ORDERABLES Final Resul t [facility] [address] [place] [address], * (ABNORMAL) Culture urine (09/06/2024 6:15 AM EST) Culture, Urine >100,000 CFU/mL Escherichia coli(A) AUGUST 09/08/2024 11:09 AM EST [facility] LAB Urine Urine specimen obtained by clean catch procedure / Unknown Non-blood Collection / Unknown 09/06/2024 6:15 AM EST 09/06/2024 9:34 AM EST Narrative [facility] LAB - 09/08/2024 11:09 AM EST Additional colony types present in insignificant amounts. Organism Antibiotic Method Susceptibility Escherichia coli Amoxicillin/Clavulanate AUGUST 4 ug/ml: Susceptible Escherichia coli Ampicillin/Sulbactam AUGUST 4 ug/ml: Susceptible Escherichia coli Piperacillin/Tazobactam AUGUST <=4 ug/ml: Susceptible Escherichia coli Cefazolin (Urine) AUGUST <=1 ug/ml: Susceptible Escherichia coli Cefoxitin AUGUST <=4 ug/ml: Susceptible Escherichia coli Ceftazidime AUGUST <=0.5 ug/ml: Susceptible Escherichia coli Ceftriaxone AUGUST <=0.25 ug/ml: Susceptible Escherichia coli Cefepime AUGUST <=0.12 ug/ml: Susceptible Escherichia coli Meropenem AUGUST <=0.25 ug/ml: Susceptible Escherichia coli Amikacin AUGUST 2 ug/ml: Susceptible Escherichia coli Gentamicin AUGUST <=1 ug/ml: Susceptible Escherichia coli Ciprofloxacin AUGUST >=4 ug/ml: Resistant Escherichia coli Levofloxacin AUGUST >=8 ug/ml: Resistant Escherichia coli Nitrofurantoin AUGUST >=512 ug/ml: Resistant Escherichia coli Trimethoprim/Sulfamethoxazole AUGUST <=20 ug/ml: Susceptible Cole Pete MD LAB MICROBIOLOGY - GENERAL ORDER NANCY Final Result [facility] [address] [place] [address], [place] [phone] * (ABNORMAL) Valproic acid level, total (09/05/2024 5:15 AM EST) Only the most recent of2 resultswithin the time period is included. Valproic Acid, Total <3(L) 50 - 100 mcg/mL LAB CHEMISTRY METHOD 09/05/2024 9:21 AM EST [facility] LAB Blood Venous blood specimen / Unknown Venipuncture / Unknown 09/05/2024 5:15 AM EST 09/05/2024 8:16 AM EST Cole Pete MD LAB BLOOD ORDERABLES Final Resul t Performing Organization Address City/[facility]/ZIP Co de Phone Number [facility] [address] [place] [address], [place] [phone] from Last 3 Months Insurance MEDICARE MEDICAID - [place] Care Teams Lagging Machine Operator Relationship Specialty Start Date End Date Cole Pete MD [address] [place] [address], [phone] PCP - General Family Medicine 07/31/24
--- OUTSIDE RECORDS SUMMARY | 2024-11-30 16:47 | XMS_ITS | Encounter Summary ---
Author Organization [facility] Address [address] [place] [address] Care Team Providers Care Proof Coin Collector Name Role Phone Cole Pete MD Primary Care Provider [phone] Encounter Details Date Type Department Care Team (Late st Contact Info) Description 09/06/2024 Lab Requisition [facility] Lab [address] [facility] [place] [address] Cole Pete MD [address] [facility] [address] [facility] [phone] Unspecified dementia, unspecified severity, without behavioral disturbance, psychotic disturbance, mood disturbance, and anxiety (CMS/HCC); Unspecified atrial fibrillation (CMS/HCC) Social History Tobacco Use [...] Associated Diagnosis Comments COMPLETE BLOOD COUNT Routine 09/07/2024 6:30 AM EST Unspecified dementia, unspecified severity, without behavioral disturbance, psychotic disturbance, mood disturbance, and anxiety (CMS/HCC) Unspecified atrial fibrillation (CMS/HCC) BASIC METABOLIC PANEL Routine 09/07/2024 6:30 AM EST Unspecified dementia, unspecified severity, without behavioral disturbance, psychotic disturbance, mood disturbance, and anxiety (CMS/HCC) Unspecified atrial fibrillation (CMS/HCC) documented in this encounter Results * (ABNORMAL) Basic metabolic panel (09/07/2024 6:30 AM EST) Sodium 140 133 - 145 mmol/L LAB CHEMISTRY METHOD 09/07/2024 11:54 AM [facility] Potassium 4.5 3.5 - 5.5 mmol/L LAB CHEMISTRY METHOD 09/07/2024 11:54 AM [facility] Chloride 110 96 - 110 mmol/L LAB CHEMISTRY METHOD 09/07/2024 11:54 AM [facility] CO2 25 21 - 32 mmol/L LAB CHEMISTRY METHOD 09/07/2024 11:54 AM [facility] Anion Gap 5 3 - 11 LAB CHEMISTRY METHOD 09/07/2024 11:54 AM [facility] Glucose 87 70 - 100 mg/dL LAB CHEMISTRY METHOD 09/07/2024 11:54 AM [facility] BUN 22 5 - 25 mg/dL LAB CHEMISTRY METHOD 09/07/2024 11:54 AM [facility] Creatinine 1.54(H) 0.70 - 1.30 mg/dL LAB CHEMISTRY METHOD 09/07/2024 11:54 AM [facility] eGFR 44(L) >=60 mL/min/1. 73m2 LAB CHEMISTRY METHOD 09/07/2024 11:54 AM [facility] LAB Comment:Calculation based on the??Chronic Kidney Disease Epidemiology Collaboration (CKD-EPI) equation refit??without adjustment for race. BUN/Creatinine Ratio 14.3 LAB CHEMISTRY METHOD 09/07/2024 11:54 AM [facility] Calcium 7.7(L) 8.5 - 10.5 mg/dL LAB CHEMISTRY METHOD 09/07/2024 11:54 AM [facility] Blood Venous blood specimen / Unknown Venipuncture / Unknown 09/07/2024 6:30 AM EST 09/07/2024 10:11 AM EST us Cole Pete MD LAB BLOOD ORDERABLES Final Resul t [facility] [address] [place] [address], * (ABNORMAL) Complete blood count (09/07/2024 6:30 AM EST) WBC 9.3 4.8 - 10.8 K/mcL LAB HEMETOLOGY METHOD 09/07/2024 11:25 AM EST [facility] RBC 2.70(L) 4.50 - 5.50 M/mcL LAB HEMETOLOGY METHOD 09/07/2024 11:25 AM [facility] Hemoglobin 7.7(L) 13.5 - 17.5 g/dL LAB HEMETOLOGY METHOD 09/07/2024 11:25 AM [facility] Hematocrit 24.0(L) 42.0 - 54.0 % LAB HEMETOLOGY METHOD 09/07/2024 11:25 AM EST [facility] MCV 89.6 79.0 - 98.0 FL LAB HEMETOLOGY METHOD 09/07/2024 11:25 AM [facility] MCH 28.7 27.0 - 32.0 pcg LAB HEMETOLOGY METHOD 09/07/2024 11:25 AM [facility] MCHC 32.1 32.0 - 37.0 g/dL LAB HEMETOLOGY METHOD 09/07/2024 11:25 AM [facility] RDW 15.7(H) 11.0 - 15.0 % LAB HEMETOLOGY METHOD 09/07/2024 11:25 AM [facility] Platelets 268 130 - 400 K/mcL LAB HEMETOLOGY METHOD 09/07/2024 11:25 AM [facility] MPV 10.4 7.0 - 11.0 FL LAB HEMETOLOGY METHOD 09/07/2024 11:25 AM [facility] NRBC 0.0 <1.0 % LAB HEMETOLOGY METHOD 09/07/2024 11:25 AM EST [facility] NRBC Absolute 0.00 <0.10 K/mcL LAB HEMETOLOGY METHOD 09/07/2024 11:25 AM EST [facility] Blood Venous blood specimen / Unknown Venipuncture / Unknown 09/07/2024 6:30 AM EST 09/07/2024 10:11 AM EST us Cole Pete MD LAB BLOOD ORDERABLES Final Resul t [facility] [address] [place] [address], documented in this encounter Visit Diagnoses Diagnosis Unspecified dementia, unspecified severity, without behavioral disturbance, psychotic disturbance, mood disturbance, and anxiety (CMS/HCC) Unspecified atrial fibrillation (CMS/HCC) documented in this encounter Care Teams Proof Coin Collector Relationship Specialty Start Date End Date Cole Pete MD [address] [place] [address], [phone] PCP - General Family Medicine 07/31/24 documented as of this encounter
--- OUTSIDE RECORDS SUMMARY | 2024-11-30 16:47 | XMS_ITS | Encounter Summary ---
Author Organization [facility] Address [address] [place] [address] Care Team Providers Care Drain Technician Name Role Phone Cole Pete MD Primary Care Provider [phone] Encounter Details Date Type Department Care Team (Late st Contact Info) Description 08/04/2024 Lab Requisition [facility] - Main Lab 299 [facility] [place] [address] Cole Pete MD [address] [facility] 204 [facility] [phone] Essential (primary) hypertension Social History Tobacco Use Types Packs/Day Years Used Date Smoking Tobacco: Never Assessed Sex and Gender Information Value Date Recorded Sex Assigned at Not on file Legal Sex Male 7:39 AM EST Gender Identity Not on file Sexual Orientation Not on file documented as of this encounter Plan of Treatment Not on file documented as of this encounter Visit Diagnoses Diagnosis Essential (primary) hypertension Unspecified essential hypertension documented in this encounter Care Teams Drain Technician Relationship Specialty Start Date End Date Cole Pete MD [address] [facility] 204 [place], [phone] PCP - General Family Medicine 07/31/24 documented as of this encounter
--- OUTSIDE RECORDS SUMMARY | 2024-11-30 16:47 | XMS_ITS | Encounter Summary ---
Author Organization [facility] Address [address] [place] [address] Care Team Providers Care Biofuels Technology Manager Name Role Phone Cole Pete MD Primary Care Provider [phone] Encounter Details Date Type Department Care Team (Late st Contact Info) Description 11/28/2024 Lab Requisition [facility] - Main Lab 299 [facility] [place] [address] Cole Pete MD 38 [facility] 204 [facility] [phone] Anemia, unspecified Social History Tobacco Use Types Packs/Day Years [...] Routine 11/28/2024 5:29 AM EDT Anemia, unspecified documented in this encounter Results * (ABNORMAL) Iron and TIBC (11/28/2024 5:29 AM EDT) Iron 40(L) 50 - 160 mcg/dL LAB CHEMISTRY METHOD 11/28/2024 11:59 AM EDT [facility] TIBC 98(L) 250 - 450 mcg/dL LAB CHEMISTRY METHOD 11/28/2024 11:59 AM EDT [facility] Iron Saturation 41 20 - 50 % LAB CHEMISTRY METHOD 11/28/2024 11:59 AM EDT [facility] Blood Venous blood specimen / Unknown Venipuncture / Unknown 11/28/2024 5:29 AM EDT 11/28/2024 10:49 AM EDT Cole Pete MD LAB BLOOD ORDERABLES Final Resul t Performing Organization Address City/[facility]/ZIP Co de Phone Number [facility] [address] [place] [address], [place] [phone] * Vitamin B12 (11/28/2024 5:29 AM EDT) Vitamin B-12 479 250 - 900 pcg/mL LAB CHEMISTRY METHOD 11/28/2024 12:21 PM EDT [facility] Blood Venous blood specimen / Unknown Venipuncture / Unknown 11/28/2024 5:29 AM EDT 11/28/2024 10:49 AM EDT Cole Pete MD LAB BLOOD ORDERABLES Final Resul t [facility] [address] [place] [address], * Ferritin (11/28/2024 5:29 AM EDT) Ferritin 219 26 - 388 ng/mL LAB CHEMISTRY METHOD 11/28/2024 12:21 PM EDT [facility] Blood Venous blood specimen / Unknown Venipuncture / Unknown 11/28/2024 5:29 AM EDT 11/28/2024 10:49 AM EDT us Cole Pete MD LAB BLOOD ORDERABLES Final Resul t [facility] [address] [place] [address], [place] [phone] * (ABNORMAL) Comprehensive metabolic panel (11/28/2024 5:29 AM EDT) Sodium 141 133 - 145 mmol/L LAB CHEMISTRY METHOD 11/28/2024 2:44 PM [facility] Potassium 3.9 3.5 - 5.5 mmol/L LAB CHEMISTRY METHOD 11/28/2024 2:44 PM [facility] Chloride 110 96 - 110 mmol/L LAB CHEMISTRY METHOD 11/28/2024 2:44 PM [facility] CO2 26 21 - 32 mmol/L LAB CHEMISTRY METHOD 11/28/2024 2:44 PM [facility] Anion Gap 5 3 - 11 LAB CHEMISTRY METHOD 11/28/2024 2:44 PM [facility] Glucose 78 70 - 100 mg/dL LAB CHEMISTRY METHOD 11/28/2024 2:44 PM [facility] BUN 17 5 - 25 mg/dL LAB CHEMISTRY METHOD 11/28/2024 2:44 PM T [facility] Creatinine 1.07 0.70 - 1.30 mg/dL LAB CHEMISTRY METHOD 11/28/2024 2:44 PM [facility] eGFR 68 >=60 mL/min/1. 73m2 LAB CHEMISTRY METHOD 11/28/2024 2:44 PM [facility] Comment:Calculation based on the??Chronic Kidney Disease Epidemiology Collaboration (CKD-EPI) equation refit??without adjustment for race. BUN/Creatinine Ratio 15.9 LAB CHEMISTRY METHOD 11/28/2024 2:44 PM EDT [facility] Calcium 7.3(L) 8.5 - 10.5 mg/dL LAB CHEMISTRY METHOD 11/28/2024 2:44 PM EDT [facility] AST (SGOT) 10 10 - 42 unit/L LAB CHEMISTRY METHOD 11/28/2024 2:44 PM EDT [facility] ALT (SGPT) 7(L) 10 - 60 unit/L LAB CHEMISTRY METHOD 11/28/2024 2:44 PM EDT [facility] Alkaline Phosphatase 51 42 - 121 unit/L LAB CHEMISTRY METHOD 11/28/2024 2:44 PM EDT [facility] Total Protein 4.7(L) 6.0 - 8.0 g/dL LAB CHEMISTRY METHOD 11/28/2024 2:44 PM EDT [facility] Albumin 1.7(L) 3.2 - 5.0 g/dL LAB CHEMISTRY METHOD 11/28/2024 2:44 PM EDT [facility] Total Bilirubin 0.2 0.0 - 1.4 mg/dL LAB CHEMISTRY METHOD 11/28/2024 2:44 PM EDT [facility] Blood Venous blood specimen / Unknown Venipuncture / Unknown 11/28/2024 5:29 AM EDT 11/28/2024 10:49 AM EDT us Cole Pete MD LAB BLOOD ORDERABLES Final Resul t [facility] [address] [place] [address], * (ABNORMAL) Complete blood count (11/28/2024 5:29 AM EDT) WBC 10.6 4.8 - 10.8 K/mcL LAB HEMETOLOGY METHOD 11/28/2024 11:50 AM EDT [facility] RBC 2.20(L) 4.50 - 5.50 M/mcL LAB HEMETOLOGY METHOD 11/28/2024 11:50 AM [facility] Hemoglobin 6.6(L) 13.5 - 17.5 g/dL LAB HEMETOLOGY METHOD 11/28/2024 11:50 AM [facility] Hematocrit 20.2(L) 42.0 - 54.0 % LAB HEMETOLOGY METHOD 11/28/2024 11:50 AM [facility] MCV 90.2 79.0 - 98.0 FL LAB HEMETOLOGY METHOD 11/28/2024 11:50 AM [facility] MCH 29.5 27.0 - 32.0 pcg LAB HEMETOLOGY METHOD 11/28/2024 11:50 AM [facility] MCHC 32.7 32.0 - 37.0 g/dL LAB HEMETOLOGY METHOD 11/28/2024 11:50 AM [facility] RDW 17.8(H) 11.0 - 15.0 % LAB HEMETOLOGY METHOD 11/28/2024 11:50 AM [facility] Platelets 260 130 - 400 K/mcL LAB HEMETOLOGY METHOD 11/28/2024 11:50 AM [facility] MPV 10.5 7.0 - 11.0 FL LAB HEMETOLOGY METHOD 11/28/2024 11:50 AM [facility] NRBC 0.0 <1.0 % LAB HEMETOLOGY METHOD 11/28/2024 11:50 AM [facility] NRBC Absolute 0.00 <0.10 K/mcL LAB HEMETOLOGY METHOD 11/28/2024 11:50 AM [facility] Blood Venous blood specimen / Unknown Venipuncture / Unknown 11/28/2024 5:29 AM EDT 11/28/2024 10:49 AM EDT us Cole Pete MD LAB BLOOD ORDERABLES Final Resul t [facility] [address] [place] [address], [place] [phone] documented in this encounter Visit Diagnoses Diagnosis Anemia, unspecified documented in this encounter Care Teams Biofuels Technology Manager Relationship Specialty Start Date End Date Cole Pete MD [address] [place] [address] [address] [place], [phone] PCP - General Family Medicine 07/31/24 documented as of this encounter
--- OUTSIDE RECORDS SUMMARY | 2024-11-30 16:47 | XMS_ITS | Encounter Summary ---
Author Organization [facility] Address [address] [place] [address] Care Team Providers Care Asian Art Curator Name Role Phone Cole Pete MD Primary Care Provider [phone] Encounter Details Date Type Department Care Team (Late st Contact Info) Description 09/06/2024 Lab Requisition [facility] - Main Lab 299 [facility] [place] [address] Cole Pete MD 38 [facility] 204 [place], [phone] Dysuria Social History Tobacco Use Types Packs/Day Years [...] Procedure Name Priority Date/Time Associated Diagnosis Comments URINALYSIS WITH REFLEX MICROSCOPIC AND CULTURE Routine 09/06/2024 6:15 AM EST Dysuria SHARMA URINE CULTURE TUBE Routine 09/06/2024 6:15 AM EST Dysuria URINALYSIS WITH REFLEX MICROSCOPIC AND CULTURE Routine 09/06/2024 6:15 AM EST Dysuria CULTURE URINE Routine 09/06/2024 6:15 AM EST Dysuria documented in this encounter Results * (ABNORMAL) Culture urine (09/06/2024 6:15 AM EST) Culture, Urine >100,000 CFU/mL Escherichia coli(A) AUGUST 09/08/2024 11:09 AM EST [facility] Urine Urine specimen obtained by clean catch procedure / Unknown Non-blood Collection / Unknown 09/06/2024 6:15 AM EST 09/06/2024 9:34 AM EST Narrative [facility] - 09/08/2024 11:09 AM EST Additional [...] MICROBIOLOGY - GENERAL ORDER NANCY Final Result [facility] [address] [place] [address], [place] [phone] * (ABNORMAL) Urinalysis with reflex microscopic and culture (09/06/2024 6:15 AM EST) Specific [place] Urine 1.019 1.003 - 1.030 LAB URINALYSIS - AUTOMATED METHOD 09/06/2024 9:34 AM EST [facility] pH, Urine 6.5 5.0 - 8.0 [...] URINALYSIS - AUTOMATED METHOD 09/06/2024 9:34 AM EST [facility] Urine Urine specimen obtained by clean catch procedure / Unknown Non-blood Collection / Unknown 09/06/2024 6:15 AM EST 09/06/2024 8:41 AM EST us Cole Pete MD LAB URINE ORDERABLES Final Resul t [facility] [address] [place] [address], [place] [phone] * Sharma urine culture tube (09/06/2024 6:15 AM EST) Extra Tube Hold for add-ons. 09/06/2024 10:01 AM EST [facility] Comment:Auto resulted. Urine Urine specimen obtained by clean catch procedure / Unknown Non-blood Collection / Unknown 09/06/2024 6:15 AM EST 09/06/2024 8:41 AM EST us Cole Pete MD LAB URINE ORDERABLES Final Resul t Performing Organization Address [facility]/ZIP Co de Phone Number [facility] [address] [place] [address], [place] [phone] documented in this encounter Visit Diagnoses Diagnosis Dysuria documented in this encounter Care Teams Asian Art Curator Relationship Specialty Start Date End Date Cole ePte MD 38 [facility] 204 [place], [phone] PCP - General Family Medicine 07/31/24 documented as of this encounter
--- OUTSIDE RECORDS SUMMARY | 2024-11-30 16:47 | XMS_ITS | Encounter Summary ---
Author Organization [facility] Address [address] [place] [address] Care Team Providers Care Deflash And Wash Operator Name Role Phone Cole Pete MD Primary Care Provider [phone] Encounter Details Date Type Department Care Team (Late st Contact Info) Description 10/05/[address] [facility] - Main Lab [address] [place] [address] Cole Pete MD 38 [facility] 204 [facility] [phone] Unspecified atrial fibrillation (CMS/HCC) Social History Tobacco [...] Associated Diagnosis Comments COMPLETE BLOOD COUNT Routine 10/06/2024 7:08 AM EST Unspecified atrial fibrillation (CMS/HCC) BASIC METABOLIC PANEL Routine 10/06/2024 7:08 AM EST Unspecified atrial fibrillation (CMS/HCC) documented in this encounter Results * (ABNORMAL) Basic metabolic panel (10/06/2024 7:08 AM EST) Sodium 143 133 - 145 mmol/L LAB CHEMISTRY METHOD 10/06/2024 10:57 AM EST [facility] Potassium 4.1 3.5 - 5.5 mmol/L LAB CHEMISTRY METHOD 10/06/2024 10:57 AM [facility] Chloride 112(H) 96 - 110 mmol/L LAB CHEMISTRY METHOD 10/06/2024 10:57 AM [facility] CO2 23 21 - 32 mmol/L LAB CHEMISTRY METHOD 10/06/2024 10:57 AM [facility] Anion Gap 8 3 - 11 LAB CHEMISTRY METHOD 10/06/2024 10:57 AM [facility] Glucose 117(H) 70 - 100 mg/dL LAB CHEMISTRY METHOD 10/06/2024 10:57 AM [facility] BUN 23 5 - 25 mg/dL LAB CHEMISTRY METHOD 10/06/2024 10:57 AM [facility] Creatinine 1.29 0.70 - 1.30 mg/dL LAB CHEMISTRY METHOD 10/06/2024 10:57 AM [facility] eGFR 54(L) >=60 mL/min/1. 73m2 LAB CHEMISTRY METHOD 10/06/2024 10:57 AM [facility] Comment:Calculation based on the??Chronic Kidney Disease Epidemiology Collaboration (CKD-EPI) equation refit??without adjustment for race. BUN/Creatinine Ratio 17.8 LAB CHEMISTRY METHOD 10/06/2024 10:57 AM [facility] Calcium 8.1(L) 8.5 - 10.5 mg/dL LAB CHEMISTRY METHOD 10/06/2024 10:57 AM [facility] Blood Venous blood specimen / Unknown Venipuncture / Unknown 10/06/2024 7:08 AM EST 10/06/2024 10:09 AM EST us Cole Pete MD LAB BLOOD ORDERABLES Final Resul t [facility] [address] [place] [address], * (ABNORMAL) Complete blood count (10/06/2024 7:08 AM EST) [facility] WBC 8.3 4.8 - 10.8 K/mcL LAB HEMETOLOGY METHOD 10/06/2024 10:36 AM [facility] RBC 2.80(L) 4.50 - 5.50 M/mcL LAB HEMETOLOGY METHOD 10/06/2024 10:36 AM [facility] Hemoglobin 7.8(L) 13.5 - 17.5 g/dL LAB HEMETOLOGY METHOD 10/06/2024 10:36 AM [facility] Hematocrit 24.4(L) 42.0 - 54.0 % LAB HEMETOLOGY METHOD 10/06/2024 10:36 AM [facility] MCV 88.4 79.0 - 98.0 FL LAB HEMETOLOGY METHOD 10/06/2024 10:36 AM [facility] MCH 28.3 27.0 - 32.0 pcg LAB HEMETOLOGY METHOD 10/06/2024 10:36 AM [facility] MCHC 32.0 32.0 - 37.0 g/dL LAB HEMETOLOGY METHOD 10/06/2024 10:36 AM [facility] RDW 15.1(H) 11.0 - 15.0 % LAB HEMETOLOGY METHOD 10/06/2024 10:36 AM [facility] Platelets 295 130 - 400 K/mcL LAB HEMETOLOGY METHOD 10/06/2024 10:36 AM [facility] MPV 10.5 7.0 - 11.0 FL LAB HEMETOLOGY METHOD 10/06/2024 10:36 AM [facility] NRBC 0.0 <1.0 % LAB HEMETOLOGY METHOD 10/06/2024 10:36 AM [facility] NRBC Absolute 0.00 <0.10 K/mcL LAB HEMETOLOGY METHOD 10/06/2024 10:36 AM EST [facility] Blood Venous blood specimen / Unknown Venipuncture / Unknown 10/06/2024 7:08 AM EST 10/06/2024 10:09 AM EST Cole Pete MD LAB BLOOD ORDERABLES Final Resul t [facility] [address] [place] [address], documented in this encounter Visit Diagnoses Diagnosis Unspecified atrial fibrillation (CMS/HCC) documented in this encounter Care Teams Deflash And Wash Operator Relationship Specialty Start Date End Date Cole Pete MD [address] [place] [address], [phone] PCP - General Family Medicine 07/31/24 documented as of this encounter
--- OUTSIDE RECORDS SUMMARY | 2024-11-30 16:47 | XMS_ITS | Encounter Summary ---
Author Organization [facility] Address [address] [place] [address] Care Team Providers Care Readers' Advisory Service Librarian Name Role Phone Cole Pete MD Primary Care Provider [phone] Encounter Details Date Type Department Care Team (Late st Contact Info) Description 08/04/2024 Lab Requisition [facility] - Main Lab 299 [facility] [place] [address] Cole Pete MD 38 [facility] 204 [facility] [phone] Essential (primary) hypertension Social History Tobacco Use [...] URINALYSIS WITH REFLEX MICROSCOPIC AND CULTURE Routine 08/03/2024 6:00 PM EST Essential (primary) hypertension SHARMA URINE CULTURE TUBE Routine 08/03/2024 6:00 PM EST Essential (primary) hypertension URINALYSIS WITH REFLEX MICROSCOPIC AND CULTURE Routine 08/03/2024 6:00 PM EST Essential (primary) hypertension CULTURE URINE Routine 08/03/2024 6:00 PM EST Essential (primary) hypertension documented in this encounter Results * (ABNORMAL) Culture urine (08/03/2024 6:00 PM EST) Culture, Urine 50,000-100,000 CFU/mL Escherichia coli(A) AUGUST 08/06/2024 11:27 AM EST [facility] Comment: This is an edited result. Previous organism was Gram negative bacilli on 08/06/2024 at 1111 EST. Urine Urine specimen obtained by clean catch procedure / Unknown Non-blood Collection / Unknown 08/03/2024 6:00 PM EST 08/04/2024 10:35 AM EST [facility] ([facility] - 08/06/2024 11:27 AM EST Additional colony types present in insignificant amounts. Organism Antibiotic Method Susceptibility Escherichia coli Amoxicillin/Clavulanate AUGUST <=2 ug/ml: Susceptible Escherichia coli Ampicillin/Sulbactam AUUGST <=2 ug/ml: Susceptible Escherichia coli Piperacillin/Tazobactam AUGUST <=4 [...] Escherichia coli Trimethoprim/Sulfamethoxazole AUGUST <=20 ug/ml: Susceptible us Cole Pete MD LAB MICROBIOLOGY - GENERAL ORDER NANCY Final Result [facility] [address] [place] [address], * Sharma urine culture tube (08/03/2024 6:00 PM EST) Pathologist [facility] Extra Tube Hold for add-ons. 08/04/2024 11:01 AM [facility] Comment:Auto resulted. Urine Urine specimen obtained by clean catch procedure / Unknown Non-blood Collection / Unknown 08/03/2024 6:00 PM EST 08/04/2024 9:12 AM EST us Cole Pete MD LAB URINE ORDERABLES Final Resul t [facility] [address] [place] [address], [place] [phone] * (ABNORMAL) Urinalysis with reflex microscopic and culture (08/03/2024 6:00 PM EST) Specific [place] Urine 1.007 1.003 - 1.030 LAB URINALYSIS - AUTOMATED METHOD 08/04/2024 10:35 AM [facility] pH, Urine 6.0 5.0 - 8.0 pH LAB URINALYSIS - AUTOMATED METHOD 08/04/2024 10:35 AM [facility] Leukocytes, Urine Large(A) Negative LAB URINALYSIS - AUTOMATED METHOD 08/04/2024 10:35 AM [facility] Nitrite, Urine Negative Negative LAB URINALYSIS - AUTOMATED METHOD 08/04/2024 10:35 AM [facility] Protein, Urine 30(A) <=Trace mg/dL LAB URINALYSIS - AUTOMATED METHOD 08/04/2024 10:35 AM [facility] Glucose, Urine Negative Negative mg/dL LAB URINALYSIS - AUTOMATED METHOD 08/04/2024 10:35 AM [facility] Ketones, Urine Negative Negative mg/dL LAB URINALYSIS - AUTOMATED METHOD 08/04/2024 10:35 AM [facility] Urobilinogen, Urine 0.2 0.2 - 1.0 mg/dL LAB URINALYSIS - AUTOMATED METHOD 08/04/2024 10:35 AM [facility] Bilirubin, Urine Negative Negative LAB URINALYSIS - AUTOMATED METHOD 08/04/2024 10:35 AM [facility] Blood, Urine Large(A) Negative LAB URINALYSIS - AUTOMATED METHOD 08/04/2024 10:35 AM [facility] RBC, Urine 113.0(H) 0 - 4 /HPF LAB URINALYSIS - AUTOMATED METHOD 08/04/2024 10:35 AM [facility] WBC, Urine 525.4(H) 0 - 4 /HPF LAB URINALYSIS - AUTOMATED METHOD 08/04/2024 10:35 AM [facility] Squamous Epithelial, Urine 17 0 - 60 /LPF LAB URINALYSIS - AUTOMATED METHOD 08/04/2024 10:35 AM [facility] Bacteria, Urine Many(A) Negative /HPF LAB URINALYSIS - AUTOMATED METHOD 08/04/2024 10:35 AM [facility] Hyaline Casts, Urine 2.1 0 - 3 /LPF LAB URINALYSIS - AUTOMATED METHOD 08/04/2024 10:35 AM [facility] Urine Urine specimen obtained by clean catch procedure / Unknown Non-blood Collection / Unknown 08/03/2024 6:00 PM EST 08/04/2024 9:12 AM EST us Cole Pete MD LAB URINE ORDERABLES Final Resul t [facility] [address] [place] [address], documented in this encounter Visit Diagnoses Diagnosis Essential (primary) hypertension Unspecified essential hypertension documented in this encounter Care Teams Readers' Advisory Service Librarian Relationship Specialty Start Date End Date Cole Pete MD [address] [place] [address], [phone] PCP - General Family Medicine 07/31/24 documented as of this encounter
--- OUTSIDE RECORDS SUMMARY | 2024-11-30 16:47 | XMS_ITS | Data Portability ---
Author Organization [facility], Main Office Address [address] [place] [address] Care Team Providers Care Deputy Court Clerk Name Role Phone JASMIN HATCH - 2ND FLOOR OTHER PO, HEIDI Primary Care Provider Assessment No assessment recorded. [...] Address Organization Details Recorded Time Recurrent falls 014271940 Active 2022 Not Available [facility] 4 15:36:09 Acute non-ST segment elevation myocardial infarction 630119178 Active 2022 Not Available [facility] 4 15:36:10 Urinary tract infectious disease 07439597 Active 2022 Not Available [facility] 4 15:36:10 Altered mental status 301551078 Active 2022 Not Available [facility] 4 15:36:10 Dysphagia 24868541 Active 2022 Not Available [facility] 4 15:36:10 Anemia 209725718 Active 2022 Not Available [facility] 4 15:36:09 Loose stool 008660574 Active 2022 Not Available [facility] 4 15:36:09 Insomnia 240171582 Active 2023 Danni Joel MD [address], [address], [place], [address] , [facility] 4 17:14:19 Osteonecrosis 058103604 Active 2023 Chandrika Vasques NP [address], [address], [place], [address] , [facility] 4 17:02:51 Candidiasis of the esophagus 15038874 Active 2023 STEPHANIE MYLES NP [address], [address], [place], [address] , [facility] 4 13:32:32 Cough 82396164 Active 2023 Chandrika Vasques NP [address], [address], [place], [address] , [facility] 4 12:48:25 Hypocalcemia 4857133 Active 2024 Chandrika Vasques NP [address], [address], [place], [address] , [facility] 5 14:31:10 Acute cystitis 62336041 Active 2018 Not Available [facility] 4 15:36:10 Dementia 71024466 Active 2018 Not Available [facility] 4 15:36:10 Closed fracture of acetabulum 31765081 Active 2018 Not Available [facility] 4 15:36:09 Osteoarthriti s 027164840 Active 2018 Not Available [facility] 4 15:36:09 Paroxysmal atrial fibrillation 724258912 Active 2018 Not Available [facility] 4 15:36:09 Coronary arteriosclero sis 89948586 Active 2018 Not Available [facility] 4 15:36:10 History of cerebrovascul ar accident 150159695 Active 2018 Not Available [facility] 4 15:36:09 Retention of urine 132073442 Active 2018 Not Available [facility] 4 15:36:09 Essential hypertension 36413359 Active 2018 Not Available [facility] 4 15:36:10 Obstructive sleep apnea syndrome 78847523 Active 2018 Not Available [facility] 4 15:36:10 Gastroesophag eal reflux disease 415203618 Active 2018 Not Available [facility] 4 15:36:09 Diverticuliti s 957478340 Active 2018 Not Available [facility] 4 15:36:09 Mixed hyperlipidemi a 806443146 Active 2018 Not Available [facility] 4 15:36:09 Depressive disorder 47541306 Active 2018 Not Available [facility] 4 15:36:09 Chronic low back pain 665882709 Active 2018 Not Available [facility] 4 15:36:09 Fracture of scapular body 54890660 Active 2018 Not Available [facility] 4 15:36:10 Teardrop fracture of cervical vertebra 457269482 Active 2018 Not Available [facility] 4 15:36:09 Unsteady gait Active 2018 Not Available [facility] 4 15:36:09 Gastroesophag eal reflux disease without esophagitis 007558055 Active 2018 Not Available [facility] 4 15:36:09 Impaired cognition 290190925 Active 2018 Not Available [facility] 4 15:36:09 Problem Notes None recorded. Medical [...] Updated DateTime 5 175.26 cm 20.1 kg/m2 20378.5 6 g 64 /min 18 /min 97.8 [degF] 94 % 94 % 111 mm[Hg] 64 mm[Hg] Chandrika Vasques NP [address], [address], [place], [address], [facility] 5 13:21:03 Date Recorded Body height Body weight Heart rate Respiratory rate Body temperature Oxygen saturation Oxygen saturation in Arterial blood by Pulse oximetry Systolic blood pressure Diastolic blood pressure Provider Name and Address Organization Details Last Updated DateTime 5 175.26 cm 69897.5 6 g 62 /min 16 /min 97.9 [degF] 93 % 93 % 112 mm[Hg] 64 mm[Hg] Chandrika Vasques NP [address], [facility] [address], [place], [address], [facility] 5 10:28:50 Date Recorded Body height Heart rate Oxygen saturation Oxygen saturation in Arterial blood by Pulse oximetry Systolic blood pressure Diastolic blood pressure Provider Name and Address Organization Details Last Updated DateTime 5 175.26 cm 65 /min 95 % 95 % 109 mm[Hg] 47 mm[Hg] LAYLA WILD CNP [address], [address], [place], [address], [facility] 5 18:54:12 Date Recorded Body height Body mass index (BMI) Body weight Heart rate Respiratory rate Body temperature Oxygen saturation Oxygen saturation in Arterial blood by Pulse oximetry Systolic blood pressure Diastolic blood pressure Provider Name and Address Organization Details Last Updated DateTime 5 175.26 cm 20.1 kg/m2 43451.5 6 g 66 /min 16 /min 97.9 [degF] 93 % 93 % 102 mm[Hg] 62 mm[Hg] Chandrika Vasques NP [address], [address], [place], [address], [facility] 5 11:30:47 Social History Question Answer Notes LastModified by Organizat ion Details LastModified Time Tobacco Smoking Status Never Smoker Cole Pete MD [address], [address], [place], [address], [facility] 11/03/2022 13:48:54 Do You Have An Advance Directive? Yes [email or web address] Information not available 11/04/2022 What Is Your Level Of Alcohol Consumption? None [email or web address] Information not available 11/03/2022 What Is Your Code Status? Full Code [email or web address] Information not available 11/04/2022 Where Do You Live? [facility] Information not available 10/26/2023 Legal Guardian? No Informati on not available 10/26/2023 Do You Have A Medical Power Of Artistic Director? Yes Valid Copy In PCC, Invoked [email or web address] Information not available 11/14/2022 What Was The Date Of Your Most Recent Tobacco Screening? 12/15/2023 [email or web address] Information not available 12/15/2023 Do You Have An Out Of Hospital DNR? No Information not available 10/26/2023 What Is Your Relationship Status? Information not available 10/26/2023 Do You Use Any Illicit Or Recreational Drugs? No [email or web address] Information not available 11/14/2022 Has Tobacco Cessation Counseling Been Provided? No N/A As Pt Is A Non-smoker Information not available 10/26/2023 Do You Or Have You Ever Used Any Other Forms Of Tobacco Or Nicotine? No [email or web address] Information not available 11/14/2022 Sex: Unknown Functional Status None recorded. Mental Status None recorded. Family History Relationship Description Onset Age of this Age Resolved Age Notes LastModified by Organization Details LastModified Time Father Coronary arterioscler osis [email or web address] Not available 2022 20:16:51 Mother Coronary arterioscler osis [email or web address] Not available 2022 20:16:51 Medical History No medical history recorded. Immunizations Vaccine Type Date Status Note Provider Nam e and Address Organization Details Recorded Time COVID-19, mRNA, LNP-S, bivalent, PF, 50 mcg/0.5 mL or 25mcg/0.25 mL dose 1 completed Not Available [facility] 09/23/2023 15:36:10 COVID-19, mRNA, LNP-S, bivalent, PF, 50 mcg/0.5 mL or 25mcg/0.25 mL dose 1 completed Not Available [facility] 09/23/2023 15:36:10 COVID-19, mRNA, LNP-S, bivalent, PF, 50 mcg/0.5 mL or 25mcg/0.25 mL dose 2 completed Not Available [facility] 09/23/2023 15:36:10 Influenza, adjuvanted, quadrivalent, PF 3 completed Yennifer mak [facility] 10/19/2023 12:00:11 pneumococcal polysaccharide PPV23 3 completed Yennifer mak [facility] 10/19/2023 12:54:08 Past Encounters Encounter ID Performer Location Encounter Start Date Encounter Closed Date Diagnosis/Indication Diagnosis SNOMED-CT Code Diagnosis ICD10 Code Diagnosis Note [id number] Rama ALONSO [address] [place] [address] 05/16/2019 06:52:27 05/20/2019 16:28:02 Dementia 52297698 F01.50 unsure of baseline invoke HCP expected decline supportive care Paroxysmal atrial fibrillation 800384954 I48.0 on coumadin atenolol 50mg qd monitor Osteoarthritis 469328547 M15.8 apap, oxycodone as above lidocaine patch monitor Coronary arteriosclerosis 89214116 I25.10 s/p [place] meds as above dx added to list History of cerebrovascular accident 918294426 Z86.73 meds as above added to dx Obstructiv e sleep apnea syndrome 40078761 G47.33 added to dx Gastroesop hageal reflux disease 393342410 K21.9 not on meds for this dx added to list monitor Diverticulitis 980519874 K57.92 dx added to list Essential hypertension 46444795 I10 stable atenolol 50mg qd monitor Mixed hyperlipidemia 267 212718 E78.2 not on meds for this dx added to list Retention of urine 15278 4002 R33.8 with galvez catheter in place urology f/u prn monitor Closed fra cture of acetabulum 60821784 S32.492D apap 650mg q4h prn oxycodone 10mg q4h prn colace 100mg bid miralax bid monitor for pain relief PT/OT to maximize function pt remains NWB at this time, using zulma lift f/u ortho prn Acute cystitis 46801462 N30.00 amoxicilli n 500mg q8h to complete 6 more days here since admission galvez catheter in place monitor may get f/u urine in 2 weeks to ensure resolution [id number] LIAN ALONSO [address] [place] [address] 05/17/2019 11:47:50 05/25/2019 08:54:42 Closed fracture of acetabulum 81197107 S32.492D STAT xray of left hip now 2 viewsconti nue apap 650mg q4h prnoxycodo ne 10mg q4h prn PT/OT to maximize function pt remains NWB at this time, using zulma lift send results to ortho if worsenedch air alarm at all times [id number] MD TWAN Jones [address] [place] [address] 05/20/2019 08:04:10 05/25/2019 11:22:45 Gastroesophageal reflux disease 990213778 K21.9 omeprazole 20 mg dailywill monitor Retention of urine 46761 4002 R33.8 will do trial d/c galvez Osteoarthritis 523877443 M15.0 will d/c oxycodoneA PAP 650 mg q6hPT/OT will monitor Dementia 51714905 F02.80 expect declinewil l monitor and support as needed Acute cystitis 35033585 N30.00 amoxicilli n 500 mg q8h - can be d/c'd after today as he will have completed coursewill encourage good hydration Essential hypertension 37158530 I10 atenolol 50 mg dailywill monitor Paroxysmal atrial fibrillation 900471541 I48.0 warfarin to maintain INR 2.0-3.0ate nolol for rate controlwil l monitor [id number] Rama ALONSO [address] [place] [address] 05/20/2019 15:10:48 05/26/2019 03:47:30 Gastroesophageal reflux disease 127560751 K21.9 omeprazole 20 mg dailymonit or for sx relief Retention of urine 35335 4002 R33.8 will start trial d/c galvez 05/20/19 Osteoarthritis 472083986 M15.0 APAP 650 mg [id number] pain mgmt Dementia 94126795 F02.80 expect declinesup portive care Acute cystitis 29703369 N30.00 completed course of amoxicilli n 500 mg monitor for recurrence sx Essential hypertension 99427571 I10 atenolol 50 mg dailymonit or bp Paroxysmal atrial fibrillation 078341502 I48.0 warfarin to maintain INR 2.0-3.0ate nolol for rate controlmon itor [id number] Rama De Leon [address] [facility] [address] 05/23/2019 06:48:55 06/01/2019 13:28:16 Retention of urine 080124584 R33.8 DC of galvez trialled failed x2, pt continues to retain urine greater than 300cc and refusing to have galvez replaced. Will start flomax 0.4mg qd monitor for effect continue urinary retention protocol q8hrs monitor for improvemen t and need to increase med. will scheduled f/u with urologist Gastroesop hageal reflux disease 790429073 K21.9 omeprazole 20 mg dailymonit or for sx relief Osteoarthritis 400789925 M15.0 APAP 650 mg [id number] pain mgmt Dementia 43855895 F02.80 expect declinesup portive care Acute cystitis 93691575 N30.00 completed course of amoxicilli n 500 mg monitor for recurrence sx Essential hypertension 70348634 I10 atenolol 50 mg dailymonit or bp Paroxysmal atrial fibrillation 792009680 I48.0 warfarin to maintain INR 2.0-3.0ate nolol for rate controlmon itor [id number] Cole Pete MD [address] [facility] [address] 05/28/2019 10:52:01 06/01/2019 13:53:54 Gastroesophageal reflux disease 423293827 K21.9 omeprazole 20 mg qdmonitor for sx control Osteoarthritis 100697362 M15.0 baseline OAmonitor for sx reliefcurr ently stable at baseline Dementia 04262243 F02.80 baseline dementiain voke HCPcontinu e supportive caremonito r for behaviors Essential hypertension 78713873 I10 atenolol 50 mg dailywill monitor Paroxysmal atrial fibrillation 376229491 I48.0 atenolol 50 mg qdmonitor and adjust coumadinmo nitor for rate control Closed fra cture of acetabulum 41387208 S32.482D see HPIrecent acetabular fxfollow ortho recsmonito r pain controlthe rapy eval Retention of urine 53045 4002 R33.8 [address]urolo gy appt pending [id number] Rama De Leon [place] [address] [place] [address] 05/30/2019 09:03:51 06/01/2019 14:02:33 Closed fracture of acetabulum 84266255 S32.482D see HPIrecent acetabular fxfollow ortho recsmonito r pain controlPT/ OT to maximize function Pt with some limitation working with therapy due to cognition pt to remain NWB to left extremity until cleared by ortho Paroxysmal atrial fibrillation 962310721 I48.0 atenolol 50 mg qdmonitor and adjust coumadinmo nitor for rate control Gastroesop hageal reflux disease 447943378 K21.9 omeprazole 20 mg qdmonitor for sx control Retention of urine 27595 [address] has failed voiding trial while here urology appt today Osteoarthritis 994495310 M15.0 baseline OAmonitor for sx relief pt without pain presently Dementia 33113921 F02.80 baseline dementiaHC P invokedcon tinue supportive caremonito r for behaviors Essential hypertension 45878655 I10 stable atenolol 50 mg dailywill monitor [id number] Rama De [place] [address] [place] [address] 05/31/2019 08:27:25 06/02/2019 10:26:59 Closed fracture of acetabulum 49391055 S32.482D see HPIrecent acetabular fxfollow ortho recsmonito r pain controlPT/ OT to maximize function Pt with some limitation working with therapy due to cognition pt to remain NWB to left extremity until cleared by ortho lidocain patch to left hip Retention of urine 15608 4002 R33.8 seen by urology yesterday, galvez was removed, will re-try voiding trail, start cipro x 5 day course, f/u in 3 weeks. Pt has been needing to get straight cathed almost every shift for elevated PVR, will call urology to get possible end date sooner than 3 weeks so to avoid excessive straight cathing. Add probiotic x7days. monitor Essential hypertension 53217653 I10 stable atenolol 50 mg dailywill monitor Low back pain 233005198 M54.5 unsure of chronicity as pt is poor historian apap for pain will order bengay as well start with PT/OT evaluation monitor Dry eyes 269138148 H04.1 29 pt having pain in the right eye with straining, relieved with rest. May benefit from eye drops. will add artificial tears bid x 10 days then tid prn monitor for relief [id number] Rama [address] [place] [address] [place] [address] 06/02/2019 10:05:59 06/03/2019 12:23:52 Physical deconditioning 9034771178 9102 R68.89 Believe these recurrent pains in different areas of his body to be related to deconditio simon as today is the first time pt has been up out of bed to work with therapy. Pt is able to make the pains go away with certain positionin g/pressure , although it is difficult to get a good history due to pt's baseline dementia. Will order muscle relaxer prn for these episodes. baclofen 5mg tid prn muscle spasm continue to monitor [id number] Rama De Leon [address] [place] [address] [place] [address] 06/06/2019 08:14:20 06/08/2019 16:37:52 Physical deconditioning 0505938382 9102 R68.89 is improving as he is working with PT/OT to maximize function baclofen 5mg tid prn - working with good effect continue to monitor Retention of urine 74126 4002 R33.8 completed cipro 5 day course continues with PVRs pt improving and not needing as much straight caths f/u with urology in 2 weeks monitor Closed fra cture of acetabulum 22005704 S32.482D see HPIrecent acetabular fxfollow ortho recsmonito r pain controlPT/ OT to maximize function Pt with some limitation working with therapy due to cognition pt to remain NWB to left extremity until cleared by ortho lidocain patch to left hip Essential hypertension 97560354 I10 stable atenolol 50 mg dailywill monitor [id number] Rama Brower [facility] [address] [place] [address] 06/13/2019 10:17:38 06/15/2019 12:00:37 Physical deconditioning 8211275954 9102 R68.89 pt has been DCd from PT/OT for the time being as they have reached their limit with his NWB status and cognitive impairment , needing constant queing, occasional ly refusing. Pt has f/u with ortho on 06/15/19 baclofen 5mg tid prn - working with good effect continue to monitor Retention of urine 80325 4002 R33.8 completed cipro 5 day course pt improving and not needing straight caths- continues with PVRs until urology f/u on 06/16/19 monitor Closed fra cture of acetabulum 58961138 S32.482D see HPIrecent acetabular fxfollow ortho recsmonito r pain control pt to remain NWB to left extremity until cleared by ortho- f/u on 06/15/19 lidocain patch to left hip Essential hypertension 36771925 I10 stable atenolol 50 mg dailywill monitor [id number] Rama De [place] [address] [place] [address] 06/15/2019 10:49:10 06/17/2019 11:01:35 Physical deconditioning 7972481836 9102 R68.89 baclofen 5mg tid- will schedule for the next 4 weeks and then put back to prn - working with good effect. expect pt's muscle spasms to improve with improved mobility, seen by orth today with new weight bearing status, see above PT/OT to eval and treat continue to monitor Closed fra cture of acetabulum 28444401 S32.482D see HPIrecent acetabular fxPt seen by ortho today, to be PWB x2 weeks and then WBAT f/u with ortho prn PT/OT to eval and treat monitor pain control lidocain patch to left hip [id number] Rama De Leon [place] [address] [place] [address] 06/20/2019 06:58:36 06/23/2019 09:36:44 Closed fracture of acetabulum 16449746 S32.482D see HPIrecent acetabular fxPt seen by ortho last week, he is now PWB x2 weeks then WBAT f/u with ortho prn PT/OT to eval and treat monitor pain control lidocain patch to left hip Physical deconditioning 9523496567 9102 R68.89 baclofen 5mg tid scheduled for 4 weeks then to return back to prn. expect pt's muscle spasms to improve with improved mobility, see above PT/OT to eval and treat continue to monitor Retention of urine 37026 4002 R33.8 improved and pt not needing straight caths any longer. pt seen by urology on 06/16/19- orders to stop PVRs, continue flomax and f/u in 6 months. monitor Essential hypertension 75813716 I10 stable atenolol 50 mg dailywill monitor Paroxysmal atrial fibrillation 832970215 I48.0 atenolol 50 mg qdmonitor and adjust coumadinmo nitor for rate control Dementia 75725793 F02.80 baseline dementiaHC P invokedcon tinue supportive care expected decline monitor for behaviors Osteoarthritis 663984274 M15.0 baseline OAmonitor for sx relief pt without pain presently Gastroesop hageal reflux disease 344370599 K21.9 omeprazole 20 mg qdmonitor for sx control [id number] [address] 06/24/2019 10:38:36 06/27/2019 15:14:12 Closed fracture of acetabulum 47798719 S32.482D see HPIrecent acetabular fxPt seen by ortho last week, he is now PWB x2 weeks then WBAT f/u with ortho prn PT/OT to eval and treat monitor pain control lidocain patch to left hip Physical deconditioning 4032676431 9102 R68.89 baclofen 5mg tid scheduled for 4 weeks then to return back to prn. expect pt's muscle spasms to improve with improved mobility, see above PT/OT to eval and treat- they are working with him for his back pain as well now PWB continue to monitor Essential hypertension 09878618 I10 stable atenolol 50 mg dailywill monitor Dementia 30442725 F02.80 baseline dementiaHC P invokedcon tinue supportive care expected decline monitor for behaviors psych eval as above Depressive disorder 3548 9007 F33.8 with poor appetite, pt noted to have weight loss. start mirtazapin e 7.5mg qd will order psych eval Osteoarthritis 113237163 M15.0 baseline OA pain appears managed monitor for sx relief [id number] Rama De Leon [address] [address] [place] [address] 06/27/2019 11:34:53 06/29/2019 10:16:43 Depressive disorder 77215128 F33.8 with associated poor appetite, although he did want to lose weight upon coming to our facility. mirtazapin e 7.5mg qd started last week- unsure if this is helping awaiting psych eval will also order nutrition consult today monitor mood Closed fra cture of acetabulum 50419661 S32.482D see HPIrecent acetabular fxPt now PWB x2 more days then will be WBAT f/u with ortho prn PT/OT to eval and treat monitor pain control lidocain patch to left hip Physical deconditioning 6162739214 9102 R68.89 baclofen 5mg tid scheduled for 4 weeks then to return back to prn only. expect pt's muscle spasms to improve with improved mobility, see above PT/OT to eval and treat- they are working with him for his back pain as well now PWB continue to monitor Essential hypertension 25597923 I10 stable atenolol 50 mg dailywill monitor Dementia 30359016 F02.80 baseline dementiaHC P invokedcon tinue supportive care expected decline monitor for behaviors psych eval as above Chronic low back pain 27 7052414 M54.5 PT/OT eval and treat baclofen 5mg tid for 3 more weeks pt also has 5mg baclofen tid prn may try non-pharma cologic options if pt feels unrelieved monitor Fall 2112213 R29.6 PT/OT working with pt as above pt on baclofen scheduled tid will encourage fluids pt appears at his baseline mentation, although more depressed. will continue to monitor for now and monitor need to check a UA labs remain stable Recent weight loss 93994 7000 R63.4 pt had come in to our facility wanting to lose weight, and discussed this with the hydrocrane operator. Pt's goal to be in the low 180s. He has lost some weight- he was in the 190s, now has dropped to 184.6 and has been stable. No concern for weight loss at this time. [id number] Rama De Leon [facility] [address] [place] [address] 06/30/2019 14:27:58 07/04/2019 12:07:40 Closed fracture of acetabulum 30843971 S32.482D see HPIrecent acetabular fxPt now WBAT f/u with ortho prn PT/OT to eval and treat monitor pain control lidocain patch to left hip Essential hypertension 62591940 I10 stable atenolol 50 mg dailywill monitor Altered mental status 41 4957742 R41.82 episode yesterday, now resolved Anemia 223838466 D50.8 will order cbc, b12, iron studies for thursday. start collecting blood occult stools [place] [id number] Rama De Leon [facility] [place] [address] 07/05/2019 10:07:02 07/12/2019 15:36:35 Anemia 088086762 D50.8 h/h trending down slowly b12 and iron wnl. vit D slightly low, not likely the cause for drop in hgb. awaiting blood occult stools to be collected. will start vit D 1000u daily pt remains asymptomat ic will recheck cbc on Thursday Closed fra cture of acetabulum 25144006 S32.482D see HPIrecent acetabular fxPt now WBAT f/u with ortho prn PT/OT to eval and treat monitor pain control lidocain patch to left hip Essential hypertension 70663580 I10 stable atenolol 50 mg dailywill monitor Chronic low back pain 27 7088421 M54.5 PT/OT eval and treat baclofen 5mg tid for 2 more weeks pt also has 5mg baclofen tid prn may try non-pharma cologic options if pt feels unrelieved monitor Fall R29.6 PT/OT working with pt as above pt on baclofen scheduled tid will encourage fluids pt appears at his baseline mentation, although more depressed. will continue to monitor for now and monitor need to check a UA labs remain stable Depressive disorder 3548 9007 F33.8 with associated poor appetite, although he did want to lose weight upon coming to our facility, now at his goal and stable. mirtazapin e 7.5mg qd started 2 weeks ago- no change in appetite, will increase to 15mg qd. If no improvemen t, will DC. awaiting psych eval monitor mood Dementia [id number] F02.80 baseline dementiaHC P invokedcon tinue supportive care expected decline monitor for behaviors psych eval as above Paroxysmal atrial fibrillation 847952269 I48.0 atenolol 50 mg qdmonitor and adjust coumadin- pt's inr has been variable may consider switching to eliquis at f/u monitor for rate control [address] Rama [address] [place] [address] [place] [address] 07/08/2019 10:35:58 07/12/2019 16:17:21 Essential hypertension 51363843 I10 stable atenolol 50 mg dailywill monitor Gastroesop hageal reflux disease 842120885 K21.9 omeprazole 20 mg qd- Will DC this today, start trial ranitidine 150mg bid x 2 weeks then re-eval. avoid culprit foods monitor for sx control 97437 Rama De [place] [address] [address] [facility] [address] 07/11/2019 12:40:32 07/14/2019 13:34:20 Gastroesophageal reflux disease 916237305 K21.9 DCd omeprazole last week, now on ranitidine 150mg bid x 2 weeks - then to re-eval avoid culprit foods monitor for sx control Essential hypertension 53394340 I10 stable atenolol 50 mg dailywill monitor Anemia 441704028 D50.8 vit D 1000u daily pt remains asymptomat ic monitor cbc Closed fra cture of acetabulum 70319829 S32.482D see HPIrecent acetabular fxPt now WBAT f/u with ortho prn PT/OT to eval and treat monitor pain control lidocain patch to left hip Paroxysmal atrial fibrillation 021430296 I48.0 atenolol 50 mg qdmonitor and adjust coumadin monitor for rate control Chronic low back pain 27 1698469 M54.5 PT/OT eval and treat baclofen 5mg tid-will DC this today. ?may be having effect on pt's alertness. pt will continue with 5mg baclofen tid prn may try non-pharma cologic options if pt's pain feels unmanaged monitor Dementia 89752951 F02.80 appears to have some increased confusion today, see above HCP invokedcon tinue supportive care expected decline monitor for behaviors being followed by med options Altered mental status 41 5922294 R41.82 had episode of hallucinat ions on 07/09 pt appears to have mild lethargy and increased confusion today, will order UA&CS monitor 98228 Rama [facility] [address] [place] [address] 07/12/2019 08:10:01 07/14/2019 13:49:45 Altered mental status 978139118 R41.82 had episode of hallucinat ions on 07/09, noted to have some increased confusion/ lethargy awaiting UA&CS monitor Dementia 88120940 F02.80 HCP invokedcon tinue supportive care expected decline monitor for behaviors being followed by med [facility] Gastroesop hageal reflux disease 532061857 K21.9 doing well on ranitidine 150 mg bid so far avoid culprit foods monitor for sx control Paroxysmal atrial fibrillation 585990745 I48.0 atenolol 50 mg qdmonitor and adjust coumadin monitor for rate control Essential hypertension 04018915 I10 stable atenolol 50 mg dailywill monitor Anemia 633508208 D50.8 vit D 1000u daily pt remains asymptomat ic monitor cbc Closed fra cture of acetabulum 44659344 S32.482D see HPIrecent acetabular fxPt now WBAT f/u with ortho prn PT/OT to eval and treat monitor pain control lidocain patch to left hip Chronic low back pain 27 9889977 M54.5 PT/OT eval and treat baclofen 5mg tid prn may try non-pharma cologic options if pt's pain feels unmanaged monitor Depressive disorder 6618 9007 F33.8 mirtazapin e 15mg qd now with improved appetite depression appears somewhat improved- pt also has expected discharge date on that he is looking forward to. f/u psych prn monitor mood 79207 Rama [facility] [address] [place] [address] 07/14/2019 10:20:48 07/20/2019 13:12:40 Depressive disorder 14061540 F33.8 mirtazapin e 15mg qd now with improved appetite depression appears somewhat improved- pt looking forward to going home. f/u outpt Altered mental status 41 4013350 R41.82 had episode of hallucinat ions on 07/09, noted to have some increased confusion/ lethargy. preliminar y UA showing heavy bacteria, awaiting CS report, will notify pt and send script if needed. Last UTI in acute care tx with amoxicilli n. f/u outpt Dementia 83982083 F02.80 HCP invokedcon tinue supportive care expected decline Gastroesop hageal reflux disease 999066373 K21.9 doing well on ranitidine 150 mg bid f/u outpt Paroxysmal atrial fibrillation 322404362 I48.0 atenolol 50 mg qdcoumadin Patient will be on 5.5mg coumadin tonight and tomorrow night, to get PT/INR rechecked on 07.16.19 as outpt Essential hypertension 02960171 I10 stable atenolol 50 mg dailyf/u outpt Anemia 696170999 D50.8 mild vit D 1000u daily pt asymptomat ic f/u outpt Closed fra cture of acetabulum 16588262 S32.482D see HPIrecent acetabular fxPt WBAT lidocaine patch baclofen tid prn f/u with ortho prn outpt PT/OT outpt Chronic low back pain 27 7061915 M54.5 PT/OT eval and treat baclofen 5mg tid prn f/u outpt Osteoarthritis 988214547 M15.0 baseline OA f/u outpt Retention of urine 64080 4002 R33.8 pt seen by urology on 06/16/19- orders to stop PVRs, continue flomax and f/u in 6 months as outpt 32403 MD EVI Melgar [address] [place] [address] [place] [address] 07/27/2019 13:00:00 08/05/2019 14:59:42 Teardrop fracture of cervical vertebra 498565779 S12.590D see HPIfollow neurosurge ry recsAspen collar in placePT OT Eval and treatmonit or for pain control Fracture o f scapular body 47825082 S42.112G recent left scapular fxNWB till cleared by orthosee above Closed fra cture of acetabulum 66722661 S32.482D see HPIrecent acetabular fxfollow ortho recsmonito r pain controlthe rapy evalis able to ambulate Unsteady gait 472136349 R26.81 recent recurrent falls with fracturese e abovemonit or need to transition to LTC Paroxysmal atrial fibrillation 538214918 I48.0 atenolol 50 mg qdmonitor and adjust coumadinmo nitor for rate controlcon tinue to assess risk vs benefit in patient with recurrent fallsactiv beto maintained on coumadin from hospital discharge Essential hypertension 11821072 I10 atenolol 50 mg dailymonit or bpadjust prn Retention of urine 61734 4002 R33.8 flomax 0.4 mg qdto f/u with urology Gastroesop hageal reflux disease without esophagitis 258728677 K21.9 ranitidine 150 mg bidmonitor for sx control 81838 Rama STEVE SINA [address] [place] [address] 08/01/2019 09:33:43 08/04/2019 16:10:30 Teardrop fracture of cervical vertebra 756178316 S12.590D see HPIfollow neurosurge ry recsAspen collar in placePT OT Eval and treatmonit or for pain control Fracture o f scapular body 21129330 S42.112G recent left scapular fxNWB till cleared by orthosee above Closed fra cture of acetabulum 10486665 S32.482D see HPIrecent acetabular fxfollow ortho recsmonito r pain controlthe rapy evalis able to ambulate Unsteady gait 207799908 R26.81 recent recurrent falls with fracturese e abovemonit or need to transition to LTC Paroxysmal atrial fibrillation 446900846 I48.0 atenolol 50 mg qdmonitor and adjust coumadinmo nitor for rate controlcon tinue to assess risk vs benefit in patient with recurrent fallsactiv beto maintained on coumadin from hospital discharge Essential hypertension 45667569 I10 stable atenolol 50 mg dailymonit or bpadjust prn Retention of urine 70917 4002 R33.8 flomax 0.4 mg qdto f/u with urology Gastroesop hageal reflux disease without esophagitis 060505234 K21.9 ranitidine 150 mg bid- will DC and change to omeprazole - pt without longstandi ng hx of gerd and being on omeprazole in the past with good effect. monitor for sx control Leukocytosis 625079953 D 72.828 see HPI cxr showing patchy right lung opacities, may require f/u xray if no improvemen t awaiting UA to be collected blood cultures taken repeat labs tomorrow Pt stable presently, VSS, afebrile monitor [address]ama ANDINO [address] [place] [address] [place] [address] 08/02/2019 07:20:26 08/10/2019 11:48:28 Leukocytosis 738335241 D72.828 see HPI appears to be improving. cxr showing patchy right lung opacities, may require f/u xray if no improvemen t. awaiting UA to be collected blood cultures Pt stable presently, VSS, afebrile monitor Teardrop f racture of cervical vertebra 717340273 S12.590D see HPIfollow neurosurge ry recsAspen collar in placePT OT Eval and treat oxy 5mg q6h prn monitor for pain control Fracture o f scapular body 10021568 S42.112G recent left scapular fxNWB till cleared by orthosee above Closed fra cture of acetabulum 44609114 S32.482D see HPIrecent acetabular fxfollow ortho recsmonito r pain controlthe rapy evalis able to ambulate Unsteady gait 798306627 R26.81 recent recurrent falls with fracturese e abovemonit or need to transition to LTC Paroxysmal atrial fibrillation 849929755 I48.0 atenolol 50 mg qdmonitor and adjust coumadinmo nitor for rate controlcon tinue to assess risk vs benefit in patient with recurrent fallsactiv beto maintained on coumadin from hospital discharge Essential hypertension 45520049 I10 stable atenolol 50 mg dailymonit or bpadjust prn Gastroesop hageal reflux disease without esophagitis 900325067 K21.9 omeprazole 20mg qd- recently started. Pt denies any gerd sx today. monitor for sx control Retention of urine 70825 4002 R33.8 flomax 0.4 mg qdto f/u with urology 41063 MD EVI Melgar SINA [address] [facility] [place] [address] 08/03/2019 14:23:45 08/10/2019 12:08:12 Acute cystitis 05177481 N30.00 bactrim DS bid x 5 daysprobio tic bid x 10 daysmonito r to resolution 79451 Rama Moises EVI ANDINO [address] [facility] [place] [address] 08/09/2019 09:39:58 08/16/2019 10:05:19 Acute cystitis 24528025 N30.00 completed bactrim DS bid x 5 day coursecont inue on probiotic WBC count back wnl monitor for sx recurrence Teardrop f racture of cervical vertebra 973266936 S12.590D see HPIfollow neurosurge ry recsAspen collar in placePT OT Eval and treat oxy 5mg q6h prn monitor for pain control Fracture o f scapular body 14624475 S42.112G recent left scapular fxNWB till cleared by ortho- has f/u on 08/25/19se e above Closed fra cture of acetabulum 67243005 S32.482D see HPIrecent acetabular fxfollow ortho recsmonito r pain controlthe rapy evalis able to ambulate Unsteady gait 079404854 R26.81 recent recurrent falls with fracturese e abovemonit or need to transition to LTC Paroxysmal atrial fibrillation 568784806 I48.0 atenolol 50 mg qdmonitor and adjust coumadinmo nitor for rate controlcon tinue to assess risk vs benefit in patient with recurrent fallsactiv beto maintained on coumadin from hospital discharge Essential hypertension 44862254 I10 stable atenolol 50 mg dailymonit or bpadjust prn Gastroesop hageal reflux disease without esophagitis 913124163 K21.9 stable on omeprazole 20mg qd monitor for sx control Retention of urine 20101 4002 R33.8 flomax 0.4 mg qdto f/[place]n 45945 Rama ANDINO [address] [place] [address] 08/15/2019 08:42:28 08/18/2019 15:24:41 Acute cystitis 86902310 N30.00 completed bactrim DS bid x 5 day course WBC count back wnl monitor for sx recurrence Teardrop f racture of cervical vertebra 254756629 S12.590D see HPIfollow neurosurge ry recsAspen collar in placePT OT Eval and treat oxy 5mg q6h prn monitor for pain control Fracture o f scapular body 24291262 S42.112G recent left scapular fxNWB till cleared by ortho- has f/u on 08/25/19se e above Closed fra cture of acetabulum 01583351 S32.482D see HPIrecent acetabular fxfollow ortho recsmonito r pain controlthe rapy evalis able to ambulate Unsteady gait 441504079 R26.81 recent recurrent falls with fracturese e abovemonit or need to transition to LTC Paroxysmal atrial fibrillation 601259332 I48.0 atenolol 50 mg qdmonitor and adjust coumadinmo nitor for rate controlcon tinue to assess risk vs benefit in patient with recurrent fallsactiv beto maintained on coumadin from hospital discharge Essential hypertension 82978207 I10 stable atenolol 50 mg dailymonit or bpadjust prn Gastroesop hageal reflux disease without esophagitis 088912714 K21.9 stable on omeprazole 20mg qd monitor for sx control Retention of urine 30920 4002 R33.8 flomax 0.4 mg qdto f/[place]n 22000 Rama Moises STEVE SINA [address] [facility] [place] [address] 08/18/2019 08:56:52 08/29/2019 14:10:07 Teardrop fracture of cervical vertebra 138744447 S12.590D see HPIfollow neurosurge ry recsAspen collar in placePT OT Eval and treat oxy 5mg q6h prn monitor for pain control Fracture o f scapular body 03252452 S42.112G recent left scapular fx seen by ortho on 08/03/19 now WBAT to the LUE sling only for comfort otherwise may DC ortho f/u in 6-8weeks PT/OT to maximize function monitor for pain control see above Closed fra cture of acetabulum 14512761 S32.482D WBAT f/u with ortho on 08/25/19 PT/OT to maximize function monitor for pain control follow ortho recs Unsteady gait 889156163 R26.81 recent recurrent falls with fracturese e abovemonit or need to transition to LTC Paroxysmal atrial fibrillation 515785923 I48.0 atenolol 50 mg qdmonitor and adjust coumadinmo nitor for rate controlcon tinue to assess risk vs benefit in patient with recurrent fallsactiv beto maintained on coumadin from hospital discharge Essential hypertension 35917743 I10 stable atenolol 50 mg dailymonit or bpadjust prn Gastroesop hageal reflux disease without esophagitis 150054184 K21.9 stable on omeprazole 20mg qd monitor for sx control Retention of urine 07323 4002 R33.8 flomax 0.4 mg qdto f/[place] prn 03983 Rama ANDINO [address] [place] [address] 08/19/2019 08:20:53 08/29/2019 14:38:07 Teardrop fracture of cervical vertebra 857510840 S12.590D see HPIfollow neurosurge ry recsAspen collar in placePT OT Eval and treat oxy 5mg q6h prn monitor for pain control Fracture o f scapular body 03469882 S42.112G recent left scapular fx seen by ortho on 08/03/19 now WBAT to the LUE sling only for comfort otherwise may DC ortho f/u in 6-8weeks PT/OT to maximize function monitor for pain control see above Closed fra cture of acetabulum 42196491 S32.482D WBAT f/u with ortho on 08/25/19 PT/OT to maximize function monitor for pain control follow ortho recs Unsteady gait 449255456 R26.81 recent recurrent falls with fracturese e abovemonit or need to transition to LTC Essential hypertension 83861226 I10 stable atenolol 50 mg dailymonit or bpadjust prn Impaired cognition 20966 6002 R41.89 Pt agitated today due to frustratio ns about not being home. SLUMS completed today pt contineus to have cognition that waxes and wanes, continues to be barrier when working with therapy. Pt's agitation improved with talking with him about his physical health status and what [place] goal [place] [address] Rama De Leon EVI SINA [address] [place] [address] [place] [address] 08/26/2019 08:35:13 09/02/2019 13:44:23 Impaired cognition 503408201 R41.89 Pt contineus to have cognition that waxes and wanes, continues to be barrier when working with therapy, however he is improving slowly. monitor mood psych eval prn Teardrop f racture of cervical vertebra 593361467 S12.590D see HPIfollow neurosurge ry recsAspen collar in placePT OT Eval and treat oxy 5mg q6h prn f/u with ortho on 08/25/19- awaiting notes. in report from staff to continue with aspen collar and working with PT. monitor for pain control Fracture o f scapular body 09879273 S42.112G recent left scapular fx seen by ortho on 08/03/19 now WBAT to the LUE sling only for comfort otherwise may DC ortho f/u in 6-8weeks PT/OT to maximize function monitor for pain control see above Closed fra cture of acetabulum 17828419 S32.482D WBAT f/u with ortho PT/OT to maximize function monitor for pain control follow ortho recs Unsteady gait 232068591 R26.81 recurrent falls with fracturese e abovemonit or need to transition to LTC Essential hypertension 78788868 I10 stable atenolol 50 mg dailymonit or bpadjust prn Paroxysmal atrial fibrillation 651095674 I48.0 atenolol 50 mg qdmonitor and adjust coumadinmo nitor for rate controlcon tinue to assess risk vs benefit in patient with recurrent fallsactiv beto maintained on coumadin from hospital discharge Gastroesop hageal reflux disease without esophagitis 946246504 K21.9 stable on omeprazole 20mg qd monitor for sx control Retention of urine 43283 4002 R33.8 flomax 0.4 mg qdto f/u with urology prn 11849 Rama ANDINO [address] [facility] [place] [address] 08/29/2019 07:47:19 09/02/2019 14:44:29 Impaired cognition 943665960 R41.89 Pt has continued to have cognition that waxes and wanes, which was a barrier when working with therapy, however he has improved slowly. f/u outpt Teardrop f racture of cervical vertebra 401133967 S12.590D see HPIfollow neurosurge ry recsAspen collar in placePT OT Eval and treat oxy 5mg q6h prn f/u with ortho as outpt Fracture o f scapular body 25716001 S42.112G recent left scapular fx seen by ortho on 08/03/19 now WBAT to the LUE sling only for comfort otherwise may DC ortho f/u in 6-8 weeks as outpt Closed fra cture of acetabulum 97412729 S32.482D WBAT f/u with ortho outpt Unsteady gait 035465340 R26.81 recurrent falls with fracturePT /OT as outpt Essential hypertension 19275942 I10 stable atenolol 50 mg dailyf/u outpt Paroxysmal atrial fibrillation 806619916 I48.0 atenolol 50 mg qdassess risk vs benefit in patient with recurrent fallsactiv beto maintained on coumadin- to f/u as outpt Gastroesop hageal reflux disease without esophagitis 610140421 K21.9 stable on omeprazole 20mg qd f/u outpt Retention of urine 37500 4002 R33.8 flomax 0.4 mg qdto f/u with urology prn outpt [id number] Cole Pete [facility] [address] [place] [address] 11/03/2022 13:48:27 11/05/2022 14:58:55 Herpes zoster ophthalmicus 18722848 B02.39 see HPIcomplet e valtrexoph th eval prn Community acquired pneumonia 939273976 J15.8 complete Ab courseadd probioticm onitor respirator y status Compressio n fracture of lumbar spine 397824643 M48.56XD L3 comp fxmonitor for pain control Impaired cognition 31188 6002 R41.89 unsure of baselinequ estion underlying dementiain voke HCPdiscuss ed with papa recheck UAin past patient confused with infection then clears after treatmentH CP goal is LTCexplain ed to HCP that if patient clears and has insight he will make his own decisions Unsteady gait 227376951 R26.81 recurrent falls with fracturese e abovemonit or need to transition to LTC Paroxysmal atrial fibrillation 989705598 I48.0 xarelto 20 mg qdmonitor for rate control and risk vs benefit in patient with recurrent falls Essential hypertension 08892784 I10 carrying dxmonitor bp and need for medication Retention of urine 70125 4002 R33.8 added to PMH with recurrent UTIsurolog y eval prn Gastroesop hageal reflux disease without esophagitis 403978051 K21.9 monitor for sx control not on PPI 325103 HEIDY RDZ PA-C [facility] [address] [address] 11/13/2022 12:29:41 12/02/2022 12:57:04 Chronic pain 67741077 G89.29 Tramadol, APAPPT/OT 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 d/c Valtrex - was only supposed to be for 5 days Coronary arteriosclerosis 61059788 I25.10 Plavix, Xareltoris ks of statin therapy outweigh benefits in this patient Recurrent falls 49274297 2 R29.6 MARROQUIN completedP T/OT 168426 HEIDY RDZ PA-C [facility] [address] [address] 11/21/2022 16:39:25 12/02/2022 14:15:12 Altered mental status 913408013 R41.82 obtain results of U/A-if was not done, re-collect spec in order to determine if colonized or infected 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 1515244193 9753406 F01.50 SLUMS completedc onsider psych consult [id number] HEIDY RDZ PA-C [facility] [address] [address] 11/28/2022 16:31:23 12/02/2022 15:26:26 Bacterial conjunctivitis 605436457 H10.022 Ilotycin each eye qid x 5 daysf/u prn Coronary arteriosclerosis 93365640 I25.10 Plavix, Xareltoris ks of statin therapy outweigh benefits in this patient Gastroesop hageal reflux disease without esophagitis 422558537 K21.9 on scheduled TUMSf/u prn 247371 GRACE MARTINEZ-C [facility] [address] [address] 12/02/2022 11:13:30 12/04/2022 13:04:56 Acute urinary tract infection 655826922 N39.0 Increased WBCs from prior U/A; could still be colonizati on since asymptomat ic and afebrile but will tx since daughter concerned about acute infection- Augmentin 875/125 mg po bid x 7 days-based on last Ucx-start when available- benefits of abx outweigh risks of non-treatm ent in this patient-ad just dosing pend renal function tomorrow if indicated- adjust abx if needed when C&S resultedPr obiotic bid x 10 daysFollow clinically [id number] STEPHANIE MYLES NP [facility] [address] [address] 12/18/2022 08:14:34 12/23/2022 11:35:45 Acute urinary tract infection 808786430 N39.0 Augmentin 875/125 mg po bid x 7 days completed. Follow clinically Compressio n fracture of lumbar spine 534077102 M48.56XD L3 comp fxmonitor for pain controlsch eduled tramadol changed from TID to every 6 hours four times a day, monitor and hold for effectiven ess and oversedati on Depressive disorder 3548 9007 F33.8 Verbalized to staff about wanting to harm himselfDen ies during my visit todayWill update SS and psych to continue to follow and provide supportive careMonito r closely - will add trazodone 25 mg bid prn x 14 days, then re-eval, per clinical psychologist recommenda tions Coronary arteriosclerosis 30482809 I25.10 VSSNo CP concernsOn minimal medsContin ue plavix Essential hypertension 54915334 I10 VSS, not on meds at this time except for terazosin, suspect also used for urinary retentionB PH Paroxysmal atrial fibrillation 090899212 I48.0 Not on meds for rate controlCon tinue xarelto 20 mg daily for ACMonitor VS/CP status Retention of urine 06859 4002 R33.8 Continue terazosin, monitor urinary status 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 recheck of viral load as not continued on Valtrex. 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 trazodone 25 mg bid prnwill monitor Compressio n fracture of lumbar spine 737999813 M48.56XD tramadol 50mg q6h prnAPAP 650 mg q4h prnPT/OT prn Coronary arteriosclerosis 88773254 I25.10 clopidogre l 75 mg dailywill monitor Paroxysmal atrial fibrillation 089756476 I48.0 rivaroxaba n 20 mg dailywill monitor Benign pro static hyperplasia without outflow obstruction 125164795 N40.0 terazosin 538407 STEPHANIE MYLES NP [facility] [address] [address] 12/29/2022 12:28:01 01/07/2023 08:21:35 Dementia 31910047 F02.80 expect declinetra zodone added prn, used once so far.Monito r mood, behaviors Essential hypertension 93464514 I10 On terazosin 5 mg daily, suspect this is more for urinary retentionC ontinue to dose q eveningNo med changes at this timeBPs overall look good.monit or Gastroesop hageal reflux disease without esophagitis 355333732 K21.9 omeprazole 40 mg dailywill monitor Mixed anxi ety and depressive disorder 903917606 F41.8 trazodone 25 mg bid prnwill monitor Compressio n fracture of lumbar spine 654994983 M48.56XD tramadol 50mg q6h sched - will start to taper off - reduce by 1 dose daily each week - reduce to TID in amAPAP 650 mg q4h prnPT/OT prn Coronary arteriosclerosis 52910425 I25.10 clopidogre l 75 mg dailyhigh fall riskmonito r CP status Paroxysmal atrial fibrillation 341172033 I48.0 rivaroxaba n 20 mg daily - may consider stopping due to frequent falls, risk>benef itwill monitor closely Benign pro static hyperplasia without outflow obstruction 904946235 N40.0 terazosin as above Recurrent falls 16140936 2 R29.6 fall in room x 1 today, fell onto kneesPT OT eval prnMonitor VS, neuros for changeCBC, CMP x 1 in am [id number] Ciarra Gutierres, [place] [facility] [address] 01/13/2023 13:01:58 01/19/2023 12:20:59 Dementia 44990916 F02.80 expect declinesup portive caresee psych meds below Essential hypertension 51583173 I10 bp normaltera zosin 5 mg qhsmonitor bp and adjust med prn Gastroesop hageal reflux disease without esophagitis 885374312 K21.9 omeprazole 40 mg qdmonitor for sxs Mixed anxi ety and depressive disorder 644386299 F41.8 trazodone 25 mg bid prnmonitor moodpsych prn Compressio n fracture of lumbar spine 424439490 M48.56XD tramadol 50mg tid till 01/21/23APA P 1000 mg tidPT/OT prn Coronary arteriosclerosis 19367214 I25.10 clopidogre l 75 mg qdmonitor for chest pain, sob Paroxysmal atrial fibrillation 864878151 I48.0 rivaroxaba n 20 mg qdmonitor for bleeding Benign pro static hyperplasia without outflow obstruction 618051938 N40.0 terazosin 5 mg q pmmonitor for retention [id number] Santa Miller MD [facility] [address] [address] 01/14/2023 10:55:10 01/18/2023 08:45:08 Chronic pain 51030146 G89.29 discussed with nursing staffRx given and new order placed for tramadol 50 mg [id number] continue to monitor [id number] STEPHANIE MYLES NP [facility] [address] [place] [address] 02/09/2023 13:53:54 02/12/2023 16:18:19 Essential hypertension 00590885 I10 On terazosin 5 mg daily, suspect this is more for urinary retentionC ontinue to dose q eveningNo med changes at this timeBPs overall look good.monit or Dementia 87402664 F02.80 expect declinetra zodone added prn, used once so far.Monito r mood, behaviors Paroxysmal atrial fibrillation 067962068 I48.0 With RVR during this hosp.Given IV meds, converted back to NSR with frequent PACs.Metop rolol 25 mg q 8 hrs started, hold for SBP<90, P<60.Keith nue rivaroxaba n 20 mg dailyMonit or VS, CP status, adjust tx. prnCBC, CMP x 1 02/23 Benign pro static hyperplasia without outflow obstruction 716694625 N40.0 terazosin as above Gastroesop hageal reflux disease without esophagitis 933252749 K21.9 omeprazole 40 mg dailywill monitor Mixed anxi ety and depressive disorder 043629904 F41.8 monitor mood and behaviors Compressio n fracture of lumbar spine 418079749 M48.56XD tramadol 50mg tid - consider taper in futureAPAP 1000 mg tidPT/OT prn Coronary arteriosclerosis 65711620 I25.10 Already on clopidogre l 75 mg dailyNow also on metoprolol and atorvastat in as aboveMonit or VS, CP statusUpda te Cards with concernsmo nitor CP status Acute non- ST segment elevation myocardial infarction 886115039 I21.4 See by CardsNow on metoprolol 25 mg q 8 hrs and atorvastat in 40 mg dailyConti nue plavix 75 mg dailyCMP in 8 wks due to start of statin (05/14)Lucretia tor VS, CP statusUpda te Cards with concernsla bs 02/23 Urinary tr act infectious disease 55758292 N39.0 E. ColiTreate d with rocephin in hosp., now on 3 days of cefuroxime 250 mg bis x 3 days.Monit or VS, sx. Altered mental status 41 1809962 R41.82 Improved with tx. of UTI, [place], AF RVR.Monito r Dysphagia 35007520 R13.1 0 Diet downgraded to puree with thins in hosp.Refer to [facility] for continued tx. and eval., hopeful to upgrade diet consistenc y [id number] LINCOLN JIN [facility] [address] [address] 02/11/2023 11:47:11 02/13/2023 09:29:43 Paroxysmal atrial fibrillation 423061210 I48.0 HR 76Metoprol ol 25 mg q 8 hrs started, hold for SBP<90, P<60.rivar oxaban 20 mg dailymonit or for abn bruising/b leedingMon itor VS, CP status, adjust tx. prnmonitor labs Acute non- ST segment elevation myocardial infarction 367178633 I21.4 metoprolol 25 mg q 8 hrsatorvas tatin 40 mg dailyplavi x 75 mg dailyCMP in 8 wks due to start of statin (05/14)Lucretia tor VS, CP statusfoll ow up with cards prnlabs 02/23 Urinary tr act infectious disease 21638224 N39.0 E. Coli tx with rocephin and cefuroxime abx therapy completedM onitor for sx changes/VS Altered mental status 41 6790410 R41.82 resolved Dysphagia 55267510 R13.1 0 Diet downgraded to puree with thins in hosp.Refer to [facility] for continued tx. and eval., hopeful to upgrade diet consistenc y Essential hypertension 20335668 I10 126/68On terazosin 5 mg daily, suspect this is more for urinary retentionC ontinue to dose q eveningNo med changes at this timeBPs overall look good.monit or Dementia 53092922 F02.80 02/11 tried to kiss nurseexpec t declinetra zodone added prn, used once so far.Monito r mood, behaviorsc onsider psych eval if inappropri ate behavior continue Benign pro static hyperplasia without outflow obstruction 891070943 N40.0 terazosin as above Gastroesop hageal reflux disease without esophagitis 434800085 K21.9 omeprazole 40 mg dailywill monitor Mixed anxi ety and depressive disorder 684347216 F41.8 monitor mood and behaviors Compressio n fracture of lumbar spine 447393796 M48.56XD tramadol 50mg tid - consider taper in futureAPAP 1000 mg tidPT/OT prn Coronary arteriosclerosis 80103298 I25.10 Already on clopidogre l 75 mg dailyon metoprolol and atorvastat in as aboveMonit or VS, CP statusUpda te Cards with concernsmo nitor CP status [id number] LIAN LORD [facility] [address] [address] 02/13/2023 11:51:57 02/17/2023 09:54:36 Diverticulitis 043839782 K57.92 stopping colace at this timepatien t will let us know if he becomes constipate dno active GI issues noted today [id number] STEPHANIE MYLES, SUMANTH [facility] [address] [address] 02/16/2023 14:55:34 02/18/2023 08:22:56 Paroxysmal atrial fibrillation 782040365 I48.0 With RVR during most recent hosp.Given IV meds, converted back to NSR with frequent PACs.Metop rolol 25 mg q 8 hrs started, hold for SBP<90, P<60.Pulse running low today, will reduce metoprolol to 25 mg bid, keep same parameters .Continue rivaroxaba n 20 mg dailyMonit or VS, CP status, adjust tx. prnCBC, CMP x 1 02/18 and 02/23 Acute non- ST segment elevation myocardial infarction 056326927 I21.4 See by CardsNow on metoprolol 25 mg q 8 hrs and atorvastat in 40 mg dailyDue to low pulse today, reduce metoprolol to 25 mg bid, same parameters Continue plavix 75 mg dailyCMP in 8 wks due to start of statin (05/14)Lucretia tor VS, CP statusUpda te Cards with concernsla bs 02/18 and 02/23 Urinary tr act infectious disease 85932456 N39.0 E. ColiTreate d with rocephin in hosp., completed 3 days of cefuroxime 250 mg bidMonitor VS, sx. Altered mental status 41 1145058 R41.82 Improved with tx. of UTI, [place], AF RVR.Monito r Dysphagia 52154232 R13.1 0 Diet downgraded to puree with thins in hosp.Refer to [facility] for continued tx. and eval., hopeful to upgrade diet consistenc y Essential hypertension 12404986 I10 On terazosin 5 mg daily, suspect this is more for urinary retentionM etoprolol added in hosp - reducing dose to 25 mg bid due to low pulse.Lucretia tor VS, continue to adjust meds prn Dementia 54072854 F02.80 expect declineMon itor mood, behaviors for changePsyc h eval prn Benign pro static hyperplasia without outflow obstruction 631103132 N40.0 terazosin as above Gastroesop hageal reflux disease without esophagitis 402887750 K21.9 omeprazole 40 mg dailywill monitor Mixed anxi ety and depressive disorder 436983532 F41.8 monitor mood and behaviors Compressio n fracture of lumbar spine 751491999 M48.56XD On tramadol 50mg tid - pain 120% better - will educe to 50 mg bid, monitor pain and continue to reduce as able.APAP 1000 mg tidPT/OT prn Coronary arteriosclerosis 49774560 I25.10 Already on clopidogre l 75 mg dailyNow also on metoprolol and atorvastat in as aboveMonit or VS, CP statusUpda te Cards with concernsmo nitor CP status [id number] STEPHANIE MYLES NP [facility] [address] [address] 02/18/2023 15:44:12 2023 11:40:14 Paroxysmal atrial fibrillation 643240249 I48.0 With RVR during most recent hosp.Given IV meds, converted back to NSR with frequent PACs.Metop rolol 25 mg q 8 hrs started, reduced to bid earlier in the week due to low pulse, continue to hold for SBP<90, P<60.Keith nue rivaroxaba n 20 mg dailyMonit or VS, CP status, adjust tx. prnCBC, CMP stable except for drop in hgb.Repeat labs 02/23 Acute non- ST segment elevation myocardial infarction 106365622 I21.4 See by CardsNow on metoprolol 25 mg (reduced earlier in the week from q 8 hrs to q 12 hrs due to low pulse) and atorvastat in 40 mg dailyConti nue plavix 75 mg dailyCMP in 8 wks due to start of statin (05/14)Lucretia tor VS, CP statusUpda te Cards with concernsla bs as above. Urinary tr act infectious disease 81079556 N39.0 E. ColiTreate d with rocephin in hosp., completed 3 days of cefuroxime 250 mg bidCurrent ly with urinary frequency, but also hx. of BPH/retent ion, on terazosin. Monitor VS, sx., repeat UA C&S to assure resolution of UTI Altered mental status 41 7461927 R41.82 Improved with tx. of UTI, [place], AF RVR.Monito r Dysphagia 29645479 R13.1 0 Diet downgraded to puree with thins in hosp.Refer red to [facility] for continued tx. and eval., hopeful to upgrade diet consistenc y Essential hypertension 05918561 I10 On terazosin 5 mg daily, suspect this is more for urinary retentionM etoprolol added in hosp - reduced dose to 25 mg bid due to low pulse.Lucretia tor VS, continue to adjust meds prn Dementia 66360451 F02.80 expect declineMon itor mood, behaviors for changePsyc h eval prn Benign pro static hyperplasia without outflow obstruction 391612876 N40.0 terazosin as abovec/o urinary frequency, recent UTI, will repeat UA C&S, assure resolution of UTI.Labs stable. Gastroesop hageal reflux disease without esophagitis 765596499 K21.9 omeprazole 40 mg dailywill monitor Mixed anxi ety and depressive disorder 761048662 F41.8 monitor mood and behaviors Compressio n fracture of lumbar spine 859840943 M48.56XD On tramadol 50mg bid - just reduced from tid as pain improved. - monitor pain and continue to reduce as able.APAP 1000 mg tidPT/OT prn Coronary arteriosclerosis 88193396 I25.10 Already on clopidogre l 75 mg dailyNow also on metoprolol and atorvastat in as aboveMonit or VS, CP statusUpda te Cards with concernsmo nitor CP status Anemia 951912886 D64.9 Hgb 10.3 -> 9.1, normocytic No s/s active bleedingOn plavix and xareltoRep eat CBC thursdayHeme test stools x 3Monitor [id number] LINCOLN [place] [address] [address] 02/24/2023 10:26:55 02/26/2023 10:22:42 Paroxysmal atrial fibrillation 195520453 I48.0 With RVR during most recent hosp, given IV meds, converted back to NSR with frequent PACsMetopr olol 25 mg q 8 hrs started, reduced to bid on 02/16/23 for low pulse, hold for SBP<90, P<60of note metoprolol order to be discontinu ed on 03/18/23 per eMAR orderrivar oxaban 20 mg qdstart BP/HR qd x 2 weeksMonit or for rate control, bleeding Acute non- ST segment elevation myocardial infarction 117466506 I21.4 metoprolol 25 mg bid as aboveatorv astatin 40 mg qdplavix 75 mg qdCMP on 05/14/23 due to start of statinMoni tor for chest pain, sobf/u with cards Urinary tr act infectious disease 08123068 N39.0 E. ColiTreate d with rocephin in hosp., completed 3 days of cefuroxime 250 mg bidUA on 02/19/23 appears negative for infectionm onitor Anemia 681317849 D64.9 Hgb 10.3 -> 9.5, improvingN o s/s active bleedingOn plavix and xareltoNur se not aware if Hemetest stools x 3 has been done but she will look into itMonitor Dysphagia 73557701 R13.1 0 Diet downgraded to puree with thin liquids in hospitalRe ferred to [facility]. and eval Essential hypertension 82149150 I10 terazosin 5 mg qd (suspect this is more for urinary retention) Metoprolol 25 mg bidMonitor BP/HR qd and adjust meds prn Dementia 18547843 F02.80 expect declinesup portive careMonito r mood, behaviors for changePsyc h eval prn Benign pro static hyperplasia without outflow obstruction 094462729 N40.0 terazosin 5 mg qdLabs stable. Gastroesop hageal reflux disease without esophagitis 432717898 K21.9 omeprazole 40 mg qdmonitor for sxs Compressio n fracture of lumbar spine 012713250 M48.56XD tramadol 50mg bidmonitor pain and continue to reduce as able.APAP 1000 mg tidcontinu e PT/OT [id number] Santa Miller MD [facility] [address] 02/27/2023 07:48:36 03/12/2023 15:55:15 Acute non-ST segment elevation myocardial infarction 872438361 I21.4 metoprolol 25 mg bidclopido grel 75 mg dailyatorv astatin 40 mg dailywill monitor Paroxysmal atrial fibrillation 839347747 I48.0 rivaroxaba n 20 mg dailymetop rolol 25 mg bidwill monitor Gastroesop hageal reflux disease without esophagitis 501138831 K21.9 omeprazole 40 mg dailywill monitor Chronic pain 26488161 G8 9.29 APAP 1000 mg tidtramado l 50 mg bidPT/OT prnwill continue to monitor Benign pro static hyperplasia without outflow obstruction 424143036 N40.0 terazosin 5 mg at hswill monitor Acute cystitis 66891698 N30.00 antibiotic s completedw ill monitor [id number] STEPHANIE MYLES NP [facility] [address] 03/02/2023 12:52:54 03/12/2023 16:19:54 Paroxysmal atrial fibrillation 434184343 I48.0 With RVR during most recent hosp, given IV meds, converted back to NSR with frequent PACsMetopr olol 25 mg q 8 hrs started, reduced to bid on 02/16/23 for low pulse, hold for SBP<90, P<60Contin ue rivaroxaba n 20 mg qd foe ACChecking BP/HR qd x 2 weeksMonit or VS, labs, rate control, bleeding Acute non- ST segment elevation myocardial infarction 155564064 I21.4 metoprolol 25 mg bid as aboveatorv astatin 40 mg qdplavix 75 mg qdCMP on 05/14/23 due to start of statinMoni tor for chest pain, sobf/u with cards Anemia 838059692 D64.9 Hgb 10.3 -> 9.5No s/s active bleedingOn plavix and xareltoNur se not aware if Hemetest stools x 3 has been done but she will look into itMonitor Dysphagia 03233273 R13.1 0 Diet downgraded to puree with thin liquids in hospitalRe ferred to [facility] continued tx. and eval Essential hypertension 14058152 I10 terazosin 5 mg qd (suspect this is more for urinary retention) Metoprolol 25 mg bidMonitor BP/HR qd and adjust meds prn Dementia 72901447 F02.80 expect declinesup portive careMonito r mood, behaviors for changePsyc h eval prn Benign pro static hyperplasia without outflow obstruction 555131386 N40.0 terazosin 5 mg qdLabs stable. Gastroesop hageal reflux disease without esophagitis 634671161 K21.9 omeprazole 40 mg qdmonitor for sxs Compressio n fracture of lumbar spine 678169116 M48.56XD Currently on tramadol 50mg bidmonitor pain and continue to reduce as able.APAP 1000 mg tidcontinu e PT/OT Diarrhea 12910728 R19.7 off miralax and colacehas had abx. recentlyWi ll add probiotic bid x 7 daysConsid er stool for c diff if remains problemati cPRN pepto bismol available prn per pt. request [id number] Chandrika Vasques NP [facility] [address] [address] 03/04/2023 13:40:05 03/12/2023 16:28:03 Paroxysmal atrial fibrillation 280158298 I48.0 overall hr and bps stable and controlled on regimen-Wi th RVR during most recent hosp, given IV meds, converted back to NSR with frequent PACsMetopr olol 25 mg q 8 hrs started, reduced to bid on 02/16/23 for low pulse, hold for SBP<90, P<60rivaro xaban 20 mg qd foe ACChecking BP/HR qd x 2 weeksMonit or VS, labs, rate control, bleeding Acute non- ST segment elevation myocardial infarction 327045515 I21.4 metoprolol 25 mg bid as aboveatorv astatin 40 mg qdplavix 75 mg qdrecheck CMP on 05/14/23 due to start of statinMoni tor for chest pain, sobf/u with cards Anemia 144879841 D64.9 Hgb 10.3 -> 9.5No s/s active bleedingpl avix and xareltoNur se still not aware if Hemetest stools x 3 has been done but she will look into itMonitor Dysphagia 94187909 R13.1 0 Diet downgraded to puree with thin liquids in hospitalRe ferred to [facility] for continued tx. and eval7/ nursing called today to order modified barium swallow and speech today at [facility] Essential hypertension 38116076 I10 terazosin 5 mg qd (suspect this is more for urinary retention) Metoprolol 25 mg bidMonitor BP/HR qd and adjust meds prn Dementia 35619478 F02.80 expect declinesup portive careMonito r mood, behaviors for changePsyc h eval prn Compressio n fracture of lumbar spine 115609462 M48.56XD 03/04 start lidocaine patch 4 % topically dailytrama dol 50mg daily -recently reducedmon itor pain and continue to reduce as able.APAP 1000 mg tidcontinu e PT/OT [id number] [facility] [address] 03/11/2023 12:36:23 03/13/2023 11:05:24 Compression fracture of lumbar spine 372626962 M48.56XD states he is willing to cont with another week of the patches consistent ly to see if it helps, nursing aware of concerncon tlidocaine patch 4 % topically dailytrama dol 50mg daily -recently reducedmon itor pain and continue to reduce as able.APAP 1000 mg tidcontinu e PT/OT Dysphagia 99277541 R13.1 0 Diet downgraded to puree with thin liquids in hospitalRe ferred to [facility] for continued tx. and eval03/04 modified barium swallow and speech at [facility] ordered, test is pending on recheck on 03/11 Paroxysmal atrial fibrillation 583389744 I48.0 overall hr and bps stable and controlled on regimen-Wi th RVR during most recent hosp, given IV meds, converted back to NSR with frequent PACsMetopr olol tartate 25mg po bid, hold for SBP<90, P<60rivaro xaban 20 mg qd for ACChecking BP/HR qd x 2 weeksMonit or VS, labs, rate control, bleeding Acute non- ST segment elevation myocardial infarction 132541737 I21.4 metoprolol 25 mg bid as aboveatorv astatin 40 mg qdplavix 75 mg qdrecheck CMP on 05/14/23 due to start of statinMoni tor for chest pain, sobf/u with cards Anemia 564397629 D64.9 Hgb 10.3 -> 9.5 a few weeks agoNo s/s active bleedingpl avix and xareltoNur se still not aware if Hemetest stools x 3, one stool neg so far on will order cbc labs for next week x 1Monitor Essential hypertension 80378927 I10 terazosin 5 mg qd (suspect this is more for urinary retention) Metoprolol 25 mg bidMonitor BP/HR qd and adjust meds prn Dementia 56225756 F02.80 expect declinesup portive careMonito r mood, behaviors for changePsyc h eval prn [id number] Chandrika Vasques NP [facility] [address] 03/12/2023 13:53:05 03/18/2023 07:49:23 Loose stool 533354097 R19.5 pt reports loose stools today and was on abx fairly recentlyon only prn stool softners and has not taken recently immodium 2 tabs with first stool and 1 tab po with each stool up to 4/daymonit orhemoccul t neg stool test recently [id number] STEPHANIE MYLES NP [facility] [address] [address] 03/18/2023 10:25:51 03/24/2023 08:50:33 Compression fracture of lumbar spine 263432312 M48.56XD HealingCon tinuelidoc soraya patch 4 % topically dailytrama dol 50mg daily - goal is to taper off completely APAP 1000 mg tidcontinu e PT/OT prn Dysphagia 72059492 R13.1 0 Diet downgraded to puree with thin liquids in hospitalRe ferred to [facility] for continued tx. and evalbarium swallow and speech at [facility] ordered, sched. 04/01 Paroxysmal atrial fibrillation 076413513 I48.0 overall hr and bps stable and controlled on regimen-Wi th RVR during most recent hosp, given IV meds, converted back to NSR with frequent PACsContin ue metoprolol tartate 25mg po bid, hold for SBP<90, P<60rivaro xaban 20 mg qd for ACMonitor VS, labs, rate control, bleeding Acute non- ST segment elevation myocardial infarction 519504422 I21.4 metoprolol 25 mg bid as aboveatorv astatin 40 mg qdplavix 75 mg qdrecheck CMP on 05/14/23 due to start of statinMoni tor for chest pain, sobf/u with cards Anemia 407986378 D64.9 Hgb 10.3 -> 9.7No s/s active bleedingOn plavix and xareltoSto ol heme neg. x 1Monitor Essential hypertension 25621968 I10 terazosin 5 mg qd (suspect this is more for urinary retention) Metoprolol 25 mg bidMonitor BP/HR qd and adjust meds prn Dementia 78792613 F02.80 expect declinesup portive careMonito r mood, behaviors for changePsyc h eval prn Loose stool 908836710 R1 9.5 Better with prn imodium and peptoMonit orPt to stop drinking coffee to see if this helps, will also consider lactose restrictio nDeclines GI referral at this time. [id number] STEPHANIE MYLES NP [facility] [address] [address] 04/21/2023 15:31:02 04/24/2023 15:43:32 Compression fracture of lumbar spine 556826526 M48.56XD HealedCont inuelidoca ine patch 4 % topically dailyAPAP 1000 mg tidStop scheduled tramadol 50mg daily - change to prn, monitor use, goal is to taper off completely monitor pain Dysphagia 17752230 R13.1 0 Diet downgraded to puree with thin liquids in hospitalHa d swallow eval at [facility] 04/01, diet advanced to chopped with nectar thick liquids along with strict aspiration precaution s and to continue to work with ST here; unclear if seen, no notes seen, will re-referMo nitor Paroxysmal atrial fibrillation 716739870 I48.0 overall hr and bps stable and controlled on regimen-Wi th RVR during most recent hosp, given IV meds, converted back to NSR with frequent PACsContin ue metoprolol tartate 25mg po bid, hold for SBP<90, P<60rivaro xaban 20 mg qd for ACMonitor VS, labs, rate control, bleeding Acute non- ST segment elevation myocardial infarction 079639496 I21.4 metoprolol 25 mg bid as aboveatorv astatin 40 mg qdplavix 75 mg qdrecheck CMP on 05/14/23 due to start of statinMoni tor for chest pain, sobf/u with cards Anemia 619084604 D64.9 Hgb 10.3 -> 9.7No s/s active bleedingOn plavix and xareltoSto ol heme neg. x 1Monitor Essential hypertension 58857111 I10 terazosin 5 mg qd (suspect this is more for urinary retention) Metoprolol 25 mg bidMonitor BP/HR, adjust meds prn Dementia 83984200 F02.80 expect declinesup portive careMonito r mood, behaviors for changePsyc h eval prn Loose stool 060617614 R1 9.5 Better with prn imodium and peptoMonit or Serum crea tinine above reference range 035177020 R79.89 Repeating CMP 05/14Monito r [id number] Chandrika Vasques NP [facility] [address] [place] [address] 06/22/2023 14:57:52 06/24/2023 08:55:11 Chronic low back pain 748895815 M54.50 did not boubacar reduction to daily prnlidcain e patch attempted and made him itchy, discontinu ed today06/22 increase tramadol 50 mg po q 8 hour prn painmonito r for use and relief [id number] Santa Miller MD [address] [address] 06/26/2023 07:41:17 06/30/2023 12:20:11 Dementia 71150434 F02.80 expect declinewil l monitor and support as neededsee meds for mixed anxiety disorder Chronic pain 30395139 G8 9.29 APAP 1000 mg tidtramado l 50 mg q8h prnPT/OT prnwill continue to monitor Paroxysmal atrial fibrillation 796752265 I48.0 rivaroxaba n 20 mg dailymetop rolol 25 mg bid for rate controlwil l monitor Gastroesop hageal reflux disease without esophagitis 360155811 K21.9 omeprazole 40 mg dailywill monitor Essential hypertension 50810894 I10 terazosin 5 mg dailywill monitor Coronary arteriosclerosis 23271312 I25.10 clopidogre l 75 mg dailyatorv astatin 40 mg dailymetop rolol 25 mg bidwill monitor History of cerebrovascular accident 123453374 Z86.73 clopidogre l 75 mg dailyatorv astatin 40 mg dailyrivar oxaban 20 mg dailywill monitor [id number] [facility] [address] 09/08/2023 15:57:21 09/15/2023 10:48:36 Dementia 83572848 F02.80 Monitor mood, behaviorsH CP invokedNot on meds at this time. Chronic pain 92667330 G8 9.29 APAP prntramado l 50 mg q8h prn - using about once a dayPT/OT prnwill continue to monitor Paroxysmal atrial fibrillation 628413104 I48.0 Continue:r ivaroxaban 20 mg daily for ACmetoprol ol 25 mg bid for rate controlmon itor VS, labs, adjust tx. prn Gastroesop hageal reflux disease without esophagitis 358434216 K21.9 Continue omeprazole 40 mg daily - consider dose reduction as GI status stablizing will monitor Essential hypertension 31324120 I10 Continue:t erazosin 5 mg daily (also using for BPH)metopr olol 25 mg bid (also using for rate control)mo nitor VS, adjust prn Coronary arteriosclerosis 40754570 I25.10 Currently stableCont inue:clopi dogrel 75 mg dailyatorv astatin 40 mg dailymetop rolol 25 mg bidLFTs OK, check lipid panel x 1Monitor CP status, adjust meds prn History of cerebrovascular accident 888867673 Z86.73 Continue:c lopidogrel 75 mg dailyatorv astatin 40 mg dailyrivar oxaban 20 mg dailywill monitor Retention of urine [id number] 4002 R33.8 Continue terazosin 5 mg qd, monitor urinary status [id number] Chandrika Vasques NP [facility] [address] [address] 09/14/2023 11:03:05 09/15/2023 16:30:05 Dementia [id number] F02.80 expect declinesup portive careMonito r mood, behaviors for changePsyc h eval prnpt brought in his own fish oil capsules 2 tabs po daily(he is aware he will reorder himself)mo nitor [id number] Chandrika Vasques NP [facility] [address] [address] 09/28/2023 13:41:26 09/30/2023 09:04:02 Dementia [id number] F02.80 expect declinesup portive careMonito r mood, behaviors for changePsyc h eval prnfish oil capsules 2 tabs po daily(he is aware he will reorder himself)mo nitor Dysphagia 57250310 R13.1 0 diet regular with chopped texture and thin liquidsmon itor for changesspe ech to eval and treat Loss of appetite 3086106 6 R63.0 recent loss of appetitede nies any cold/flu symptomsre fuses appetite enhancersa lready on omeprazole , pepto bismol, and sennahe is agreeable to:resp panel sent raghuramoneici an to see him for alt choicesmon itor wgt and status of eating [id number] Chandrika Vasques NP [facility] [address] [address] 09/30/2023 14:04:18 10/08/2023 12:55:33 Dementia [id number] F02.80 expect declinesup portive careMonito r mood, behaviors for changePsyc h eval prnfish oil capsules 2 tabs po daily(he is aware he will reorder himself)mo nitor Acute COVID-19 [id number] 8 U07.1 pt covid positive on 09/29 resulted on 09/30. symptomati c on startmolnu piravir 800 mg po bid x 5 days(discu ssion of antivirals is had and he would like to go on the molnupirav ir instead of the paxlovid as he doesn't want to change his xarelto dosing with paxlovid.r obitussin 10 ml po q 4 hours prn coughcmp and cbc on thursday x 1airborne isolation precaution s per facilityen courage fluids ? 2 liters/24 hours while covid positivevi tals dailymonit or for sequelae [id number] STEPHANIE MYLES NP [facility] [address] [address] 10/01/2023 13:07:54 10/08/2023 13:23:42 Acute COVID-19 [id number] U07.1 pt covid positive on 09/29 resulted on 09/30. symptomati c on 09/27On 09/30, started:mo lnupiravir 800 mg po bid x 5 daysrobitu ssin 10 ml po q 4 hours prn coughCheck cmp and cbc on thursday x 1Continue airborne isolation precaution s per facilityEn courage fluids, goal >2L/dvital s dailymonit or for sequelae [id number] Chandrika Vasques NP [facility] [address] [address] 10/02/2023 13:28:52 10/08/2023 13:40:12 Acute COVID-19 0153171336 U07.1 pt covid positive on 09/29 resulted on 09/30. symptomati c on 09/30, started:mo lnupiravir 800 mg po bid x 5 daysrobitu ssin 10 ml po q 4 hours prn coughCheck cmp and cbc on thursday x 1 2/irborn e isolation precaution s per facilityEn courage fluids, goal >2L/dvital s dailymonit or for sequelae Insomnia 137879233 G47.0 0 new difficulty sleeping, unclear if related to covid2/2 start melatonin 5 mg po qhsmonitor for effect [id number] Chandrika Vasques NP [facility] [address] [address] 10/05/2023 11:31:23 10/08/2023 14:09:30 Acute COVID-19 6690098352 U07.1 pt covid positive on 09/29 resulted on 09/30. symptomati c on 09/30, started:co ntmolnupir avir 800 mg po bid x 5 days end 10/05/23robi tussin 10 ml po q 4 hours prn coughairbo rne isolation precaution s per facilityEn courage fluids, goal >2L/dvital s dailymonit or for sequelae [id number] Chandrika Vasques NP [facility] [address] [address] 10/07/2023 16:24:57 10/12/2023 15:09:07 Acute COVID-19 7529039964 U07.1 pt covid positive on 09/29 resulted on 09/30. symptomati c on 09/30, started:co ntcomplete d molnupirav ir 800 mg po bid x 5 days end 10/05/23robi tussin 10 ml po q 4 hours prn coughairbo rne isolation precaution s per facilityEn courage fluids, goal >2L/dvital s dailymonit or for sequelae 2/7 cont above plan [id number] Chandrika Vasques NP [facility] [address] [address] 10/08/2023 13:31:02 10/13/2023 08:31:49 Acute COVID-19 7679627281 U07.1 pt covid positive on 09/29 resulted on 09/30. symptomati c on 09/27On 09/30, started:co ntcomplete d molnupirav ir 800 mg po bid x 5 days end 10/05/23robi tussin 10 ml po q 4 hours prn coughairbo rne isolation precaution s per facilityEn courage fluids, goal >2L/dvital s dailymonit or for sequelae 2/8 cont above [facility] daily vitals [id number] Chandrika Vasques NP [facility] [address] [address] 10/12/2023 13:31:51 10/13/2023 19:58:33 Acute COVID-19 9751292166 U07.1 resolvedpt covid positive on 09/29 resulted on 09/30. symptomati c on 09/27On 09/30, started:co ntcomplete d molnupirav ir 800 mg po bid x 5 days end 10/05/23robi tussin 10 ml po q 4 hours prn coughairbo rne isolation precaution s per facilityEn courage fluids, goal >2L/dvital s dailymonit or for sequelae Pain in ri ght hip joint [id number] 08000 M25.551 noted increase in right hip pain with extension and difficulty standing. will do bilateral hip/pelvis xray today to rule out cause/fxco nt tramadol for painnote; osteoarthr itis noted on 03/22 left kneemonito r [id number] Chandrika Vasques NP [facility] [address] [address] 10/14/2023 15:29:43 10/15/2023 20:02:49 Pain in right hip joint [id number] 90110 M25.551 Xray from 10/12/23 shows subcortica l fracture with depression of the right femoral head Joint spaces narrowed. with report just received to this [employer]. noted increase in right hip pain with extension and difficulty standing.n o cause of injury 10/14 will increase tramadol 50 to q 4 hours for pain and monitor and tyl prnlog roll ptno standing or therapy until cleared he refuses to go to ER at this timeorthop edic consult geoff note; osteoarthr itis noted on 03/22 left kneemonito r Acute COVID-19 [id number] 8 U07.1 resolvedpt covid positive on 09/29 resulted on 09/30. 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 Patient not on steroids or bisphospho nates, likely idiopathic -Evaluated by orthopedic surgery in hosp and ID who did not believe patient needed acute surgical interventi on and recommende d outpatient follow-up. -Continue home tramadol 50 mg every 4 hours as needed for pain-Would have low threshold for reimaging and reconsulti ng orthopedic surgery if pain is worsening despite analgesia. Currently pain is nearly resolved per patient. 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 Patient not on steroids or bisphospho nates, likely idiopathic -Evaluated by orthopedic surgery in hosp and ID who did not believe patient needed acute surgical interventi on and recommende d outpatient follow-up. -Would have low threshold for reimaging and reconsulti ng orthopedic surgery if pain is worsening despite analgesia. -awaiting fu appt with ortho- family working on payment of past bill so he can be sched per nursing. start tramadol 50 mg po q 6am and cont q 4 hours prn painCurren tly pain is nearly resolved per patient with tramadol so will sched am dose and cont prn per requestPT OT to eval and treat Acute cystitis 55052817 N30.00 found to have ecoli UTI treated with ceftriaxon e in hosp now resolved with course of po cefpodoxim e on 10/21monito r for sequelae [id number] Danni Joel MD [address] [address] 10/26/2023 19:46:14 11/24/2023 09:25:47 Osteonecrosis of head of femur 203670356 M87.851 Continues with intermitte nt pain, comes on suddenly and is severe, sounds like an element of muscle spasm, but random, so will not try muscle relaxant yet.Contin ue tramadol 50 mg q 6am and then 50 mg q 4 hrs prnContinu e PT/OT as able.F/U with ortho Acute cystitis 10002560 N30.00 Completed course of abxs.Monit or for recurrence . Insomnia 113716181 G47.0 0 Continue meds as above.Lucretia tor sleep patterns Dementia 49778876 F02.80 Mild at baseline, but waxes and wanesWith continued intermitte nt agitation. Continue trazadone 50 mg qhs and melatonin 5 mg qhs.Contin ue supportive care, expect decline.HC P invokedMon itor mood and behaviors. Psych follows Coronary arteriosclerosis 08600692 I25.10 No current sxs.Contin ue meds as above and clopidogre l 75 mg qd Paroxysmal atrial fibrillation 442238961 I48.0 Rate in good control on metoprolol as above.Cont inue Xarelto 20 mg qd for AC.Monitor HR and bleeding risk. Essential hypertension 43474664 I10 In good control on terazosin 5 mg qd (also using for BPH), and metoprolol 25 mg BID.Monito r BP and labs Retention of urine 51196 4002 R33.8 Continue terazosin 5 mg qd, monitor urinary status Gastroesop hageal reflux disease without esophagitis 387437399 K21.9 Continue omeprazole 40 mg qdConsider dose reduction if he remains sx free.Monit or sxs History of SARS-CoV-2 29 72377959 39858536 Z86.16 Tested + 09/29/23Now recovered. Monitor for sequelae. 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 Patient not on steroids or bisphospho nates, likely idiopathic -Evaluated by orthopedic surgery in hosp and ID who did not believe patient needed acute surgical interventi on and recommende d outpatient follow-up. (pt not sure he wants to follow up at this time and family aware of past bill at [facility])Woul d have low threshold for reimaging and reconsulti ng orthopedic surgery if pain is worsening despite analgesia. 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 has been aggressive and having difficulty with recent AVN recentlyps [facility] saw on 10/29 and rectrazodo ne 50 mg po qhs and trazodone 25 mg bid prn x 14 days, then re-eval, will start as recrecomme ndations [id number] Chandrika Vasques NP [facility] [address] [address] 11/04/2023 09:19:50 11/05/2023 16:29:25 Osteonecrosis of head of femur 837965005 M87.859 right hip pain moderately controlled on tramadol, but requests something for spasms today3/6co ntPT OT to eval and treattrama dol 50 mg po q 6am and cont q 4 hours prn paincolace 100 mg po dailystart baclofen 5 mg po bid for adjunct spasm medconsult dr. 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 Patient not on steroids or bisphospho nates, likely idiopathic -Evaluated by orthopedic surgery in hosp and ID who did not believe patient needed acute surgical interventi on and recommende d outpatient follow-up. (pt not sure he wants to follow up at this time and family aware of past bill at ortho)Woul d have low threshold for reimaging and reconsulti ng orthopedic surgery if pain is worsening despite analgesia. Acute cystitis 09084849 N30.00 resolved11/01 repeat urine resulted as negative for infection found to have ecoli UTI treated with ceftriaxon e in hosp now resolved with course of po cefpodoxim e on 10/21monito r for sequelae Mixed anxi ety and depressive disorder 156954807 F41.8 has been aggressive and having difficulty with recent AVN recentlyps [facility] saw on 10/29 and rectrazodo ne 50 mg po qhs and trazodone 25 mg bid prn x 14 days, then re-eval, will start as recfamily is coming in to sign consent today [id number] Chandrika Vasques NP [facility] [place] [address] [place] [address] 11/06/2023 13:16:32 11/10/2023 08:52:10 Osteonecrosis of head of femur 366923424 M87.859 right hip pain moderately controlled on tramadol, but requests something more medication for spasms3/8i ncrease baclofen to 10 mg po tidcontPT OT to eval and treattrama dol 50 mg po q 6am and cont q 4 hours prn paincolace [address] 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 Patient not on steroids or bisphospho nates, likely idiopathic -Evaluated by orthopedic surgery in hosp and ID who did not believe patient needed acute surgical interventi on and recommende d outpatient follow-up. (pt not sure he wants to follow up at this time and family aware of past bill at ortho)Woul d have low threshold for reimaging and reconsulti ng orthopedic surgery if pain is worsening despite analgesia. Mixed anxi ety and depressive disorder 731025982 F41.8 has been aggressive and having difficulty with recent AVN recentlyps [facility] saw on 10/29 and rectrazodo ne 50 mg po qhs and trazodone 25 mg bid prn x 14 days, then re-evalmon itor for anxiety Insomnia 297125280 G47.0 0 new difficulty sleeping, unclear if related to covid2/2 start melatonin 5 mg po qhsmonitor for effect Dementia 01618678 F02.80 expect declinesup portive careMonito r mood, behaviors for changePsyc h eval prnfish oil capsules 2 tabs po daily(he is aware he will reorder himself)mo nitor Coronary arteriosclerosis 94096534 I25.10 Currently stableCont inue:clopi dogrel 75 mg dailyatorv astatin 40 mg dailymetop rolol 25 mg bidMonitor CP status, adjust meds prn Paroxysmal atrial fibrillation 520855900 I48.0 Continue:r ivaroxaban 20 mg daily for ACmetoprol ol 25 mg bid for rate controlmon itor VS, labs, adjust tx. prn Essential hypertension 15348797 I10 Continue:t erazosin 5 mg daily (also using for BPH)metopr olol 25 mg bid (also using for rate control)mo nitor VS, adjust prn Retention of urine 58148 4002 R33.8 Continuete razosin 5 mg qdmonitor urinary status Gastroesop hageal reflux disease without esophagitis 782387781 K21.9 Continueom eprazole 40 mg dailywill monitor [id number] Chandrika Vasques NP [facility] [address] 11/09/2023 08:19:47 11/16/2023 09:53:07 Osteonecrosis of head of femur 145555974 M87.859 right hip pain moderately controlled on tramadol, but requests something more medication for spasmscont baclofen to 10 mg po tidPT OT to eval and treattrama dol 50 mg po q 6am and cont q 4 hours prn paincolace [address] 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 Patient not on steroids or bisphospho nates, likely idiopathic -Evaluated by orthopedic surgery in hosp and ID who did not believe patient needed acute surgical interventi on and recommende d outpatient follow-up. (pt not sure he wants to follow up at this time and family aware of past bill at ortho)Woul d have low threshold for reimaging and reconsulti ng orthopedic surgery if pain is worsening despite analgesia. Mixed anxi ety and depressive disorder 152006876 F41.8 has been aggressive and having difficulty with recent AVN recentlyps [facility] saw on 10/29 and rectrazodo ne 50 mg po qhs and trazodone 25 mg bid prn x 14 days, then re-eval on 11/15monito r for anxietypsy ch to reeval for increased anxiety Insomnia 642034573 G47.0 0 conttrazad one 5o mg po qhsmelaton in 5 mg po qhsmonitor for effect Dementia 98787931 F02.80 expect decline, seems more anxious and forgetful latelysupp ortive careMonito r mood, behaviors for changePsyc h eval prnfish oil capsules 2 tabs po daily(he is aware he will reorder himself)mo karley [id number] Chandrika Vasques NP [facility] [address] [address] 11/11/2023 10:42:10 11/16/2023 10:03:39 Osteonecrosis of head of femur 771421822 M87.859 right hip pain moderately controlled on tramadol, denies spasmscont baclofen to 10 mg po tidPT OT to eval and treattrama dol 50 mg po q 6am and cont q 4 hours prn paincolace 100 mg po dailyconsu lt dr. 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 Patient not on steroids or bisphospho nates, likely idiopathic -Evaluated by orthopedic surgery in hosp and ID who did not believe patient needed acute surgical interventi on and recommende d outpatient follow-up. (pt not sure he wants to follow up at this time and family aware of past bill at ortho)Woul d have low threshold for reimaging and reconsulti ng orthopedic surgery if pain is worsening despite analgesia. Mixed anxi ety and depressive disorder 897716622 F41.8 has been aggressive and having difficulty with recent AVN recentlyps [facility] saw on 10/29 and rectrazodo ne 50 mg po qhs and trazodone 25 mg bid prn x 14 days, then re-eval on 11/15monito r for anxiety10/29 3 psych to reeval for increased anxiety Dementia 66662396 F02.80 expect decline, seems more anxious and forgetful latelysupp ortive careMonito r mood, behaviors for changePsyc h eval prnfish oil capsules 2 tabs po daily(he is aware he will reorder himself)mo penelopeor [id number] Chandrika Vasques NP [address] [address] 11/12/2023 12:12:21 11/16/2023 10:38:12 Osteonecrosis of head of femur 418043858 M87.859 right hip pain moderately controlled on tramadol, denies spasmsnow with sleepy affect 11/11 change baclofen from 10 mg po tid to 10 mg q 8 hours prnPT OT to eval and treattrama dol 50 mg po q 6am and cont q 4 hours prn paincolace 100 [address] po dailyconsu lt dr. 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 Patient not on steroids or bisphospho nates, likely idiopathic -Evaluated by orthopedic surgery in hosp and ID who did not believe patient needed acute surgical interventi on and recommende d outpatient follow-up. (pt not sure he wants to follow up at this time and family aware of past bill at [facility])Woul d have low threshold for reimaging and reconsulti ng orthopedic surgery if pain is worsening despite analgesia. Mixed anxi ety and depressive disorder 929088105 F41.8 has been aggressive and having difficulty with recent AVN recentlyps [facility] saw on 10/29 and rectrazodo ne 50 mg po qhs and trazodone 25 mg bid prn x 14 days, then re-eval on 11/15monito r for anxietypsy ch to reeval for increased anxiety Dementia 42525086 F02.80 expect decline, seems more anxious and forgetful latelysupp ortive careMonito r mood, behaviors for changePsyc h eval prnfish oil capsules 2 tabs po daily(he is aware he will reorder himself)sidney crandall [id number] Chandrika Vasques NP [facility] [address] 11/27/2023 16:43:39 12/01/2023 09:36:43 Mixed anxiety and depressive disorder 602891931 F41.8 has been aggressive and having difficulty with recent AVN recentlyco nttrazodon e 50 mg po qhsmonitor for anxietypsy ch to follow as needed He is also followed up for psych eval recently rec seroquel with increased agitation however agitation is now resolved with baclofen tid medication dc'd for pain/spasm s. Psych consulted today and agrees no need to start seroquel if improved to on 11/27/23. Dementia 25296979 F02.80 expect decline, seems more anxious and forgetful latelysupp ortive careMonito r mood, behaviors for changePsyc h eval prnfish oil capsules 2 tabs po daily(he is aware he will reorder himself)sidney crandall Cold hands 072968917 R20 .8 pt with cold right hand sensation without color, sensation, or rom changewill monitor as it is just the right hand and no hx of raynaudsco nsider moving watch to other hand, blankets, or glovemonit or Dysphagia 95227268 R13.1 0 diet regular with chopped texture and thin liquidsmon itor for changesspe ech to eval and treat [id number] Chandrika Vasques NP [address] [address] 12/07/2023 09:07:24 12/16/2023 08:30:54 Dementia 87792152 F02.80 expect decline, seems more anxious and forgetful latelysupp ortive careMonito r mood, behaviors for changePsyc h eval prnfish oil capsules 2 tabs po daily(he is aware he will reorder himself)mo nitor Pain in ri ght hip joint 4576082213 50223 M25.551 Xray from 10/12/23 shows subcortica l fracture with depression of the right femoral head Joint spaces narrowed. found to have AVR in hosp with CT scanTerri refuses any ortho fu or surgery noted increase in right hip pain with extension and difficulty standing.n o cause of injurycont baclofen 10 mg po q 8 hours prn acute spasms(has been on 10 mg po tid with increased confusion and agitation so dc'd) he states he does not remember thisconttr amadol 50 mg po at 6 am and q 4hours prn pain4/[address] Brown for pain management of right hip4/8 start diclofenac gel 1% topically bid to right hipmonitor for pain relief and sequelae [id number] STEPHANIE MYLES NP [address] [address] 12/15/2023 10:42:43 12/17/2023 13:07:58 Pain in right hip joint 0373995884 00334 M25.551 Xray from 10/12/23 = subcortica l fracture with depression of the right femoral headCT scan = AVNRefusin g surgery/Or tho follow up. Meds adjusted -currently on daily ultram with prn doses availableb aclofen 10 mg tid prn.APAP prnDiclofe nac gel bid Referred to Dr. Brown, PMR, for eval and tx. Continue to monitor Dementia 46193368 F02.80 Expect continued declineCon tinue supportive careMonito r mood, behaviors for changeCont inue trazodone 50 mg q HSAlso taking prevagen supplement Psych eval prnHCP invokedBIM S completed 12/15/23: score 6/15 Mixed anxi ety and depressive disorder 062769773 F41.8 Seen by Psych for med mgmt, trazodone 50 mg q HS added about 6 wks ago, so far has tolerated wellContin ue to monitor mood, behaviorsR efer to Psych prn Insomnia 884793700 G47.0 0 Currently on melatonin 5 mg po and trazodone 50 mg q HSmonitor sleep Coronary arteriosclerosis 64464558 I25.10 Currently stableCont inue:clopi dogrel 75 mg dailyatorv astatin 40 mg dailymetop rolol 25 mg bidMonitor CP status, adjust meds prnLast LFTs 10/05/23 WNRNo lipid panel see in labs - will check x 1 Paroxysmal atrial fibrillation 601871212 I48.0 Continue:r ivaroxaban 20 mg daily for ACmetoprol ol 25 mg bid for rate controlmon itor VS, labs, adjust tx. prn Essential hypertension 11290524 I10 Continue:t erazosin 5 mg daily (also using for BPH)metopr olol 25 mg bid (also using for rate control)mo nitor VS, adjust prn Retention of urine 22819 4002 R33.8 Continuete razosin 5 mg qdmonitor urinary status Gastroesop hageal reflux disease without esophagitis 443262831 K21.9 On omeprazole 40 mg daily -> reduce to 20 mg qdmonitor GI sx.Continu e to taper as able/gonzalez e to pepcid Mixed hyperlipidemia 267 598948 E78.2 On atorvastat in 40 mg qdLFTS in Oct stableChec k lipid panel x 1 [id number] Chandrika Vasques NP [address] [address] 12/23/2023 15:07:16 12/30/2023 12:16:25 Osteonecrosis 891912763 M87.9 avn of right hips with underlying osteoarthr itishas AVR of hips on CTpt seen by psyiatrist and rec:12/22 changing diclofenac gel to 75 mg po qd and adding gabapentin 100 mg qhscontbac lofen 10 mg po q 8 hours prn paintramad ol 50 mg po q am and q 4 hour prn painmonito r for use and relief [id number] STEPHANIE MYLES NP [address] [address] 01/19/2024 13:20:22 01/20/2024 14:27:41 Gastroesophageal reflux disease [id number] K21.9 Previously on omeprazole 40 mg qd.Tapered down to 20 mg qd on 12/14, but upon review of MAR med was not listed.Dawn n -Restart omeprazole 40 mg qdCBC in amHOB>30 degrees.Mo nitor sx.May need to reconsider po diclofenac . Candidiasi s of the esophagus [id number] B37.81 C/O sore throat - poss. r/t GERD sx. vs. thrush.Sta rting PPI as aboveAdd Nystatin S&S 5 nl qid x 14 daysMonito r sx. [id number] Chandrika Vasques NP [address] [address] 01/20/2024 15:32:39 02/02/2024 13:08:30 Gastroesophageal reflux disease 053857114 K21.9 contomepra zole 40 mg qdHOB>30 degrees.Mo nitor sx.May need to reconsider po diclofenac . Candidiasi s of the esophagus 07835766 B37.81 C/O sore throat - poss. r/t GERD sx. vs. thrush.reS tarting PPI as abovecontN ystatin S&S 5 nl qid x 14 daysMonito r sx. Dementia [id number] F02.80 expect decline, seems more anxious and forgetful latelysupp ortive careMonito r mood, behaviors for changePsyc h eval prnfish oil capsules 2 tabs po daily(he is aware he will reorder himself) prevagenmo nitor Leukocytosis 887081230 D 72.829 leukocytos is 13.4 on labs without obvious source of infectionstartur inalysis wtih c & scxr with 2 viewsmonit or for source of infection, changes in conditionm ay need repeat labs on thursday [id number] Chandrika Vasques NP [address] [address] 01/22/2024 11:00:33 02/02/2024 14:06:52 Dementia 93213650 F02.80 expect decline, seems more anxious and forgetful latelysupp ortive careMonito r mood, behaviors for changePsyc h eval prnfish oil capsules 2 tabs po daily(he is aware he will reorder himself) prevagenmo nitor Acute cystitis 93284731 N30.00 found to have a UTI with gram neg rods and elevated wbc count with increased forgetfuln ess01/21 start levofloxac in 250 mg po bid with probiotic for 7 daysmonito r for sequelae [id number] STEPHANIE MYLES NP [address] [address] 01/26/2024 11:33:50 02/02/2024 14:31:32 Acute cystitis 16152754 N30.00 See above, elevated wbc prompting w/u for infection. UA C&S positive, >100K E. Coli and >100K ProteusCur rently on levaquin, Proteus sensitive but not E. Coli.Plan -stop levaquinst art augmentin 500 mg tid x 5 days plus probiotic. repeat CBC x 1 6/3maintai n fluidstren d VS and sx. Leukocytosis 513437364 D 72.829 CBC checked last week due to GI complaints Incidental finding of wbc 13.4CXR checked - neg.UA C&S checked - positive for UTI - currently treating with abx.VSSNo sx. infectionR epeat CBC 01/31 [id number] Cole Pete MD [address] [address] 02/10/2024 13:53:01 02/12/2024 12:10:27 Dementia 89613566 F02.80 baseline dementiaco ntinue supportive caremonito r for behaviorsp sych eval prn Coronary arteriosclerosis 76498729 I25.10 lipitor 40 mg qdplavix 75 mg qdmetoprol ol 25 mg bidmonitor for sx Paroxysmal atrial fibrillation 925416479 I48.0 xarelto 20 mg qdmetoprol ol 25 mg bidmonitor for rate control Essential hypertension 40029773 I10 currently wnrmonitor bp and need to titrate meds [id number] Chandrika Vasques NP [address] [address] 02/22/2024 13:20:39 03/01/2024 08:57:18 Dementia 85229677 F02.80 baseline dementiaco ntinue supportive caremonito r for behaviorsp sych eval prn Paroxysmal atrial fibrillation 808195076 I48.0 xarelto 20 mg qdmetoprol ol 25 mg bidmonitor for rate control Coronary arteriosclerosis 53504395 I25.10 lipitor 40 mg qdplavix 75 mg qdmetoprol ol 25 mg bidmonitor for sx Essential hypertension 68887036 I10 currently wnrmonitor bp and need to titrate meds Acute COVID-19 887512531 8 U07.1 pt covid positive 02/20spoke with [facility] pharmacist for best antiviral choice and availabili ty with rec as belowcont startmolnu piravir 800 mg po bid x 5 daysrobitu ssin 10 ml po q 4 hours prn coughairbo rne isolation precaution s per facilityEn courage fluids, goal >2L/dvital s dailymonit or for sequelae [id number] Chandrika Vasques NP [address] [address] 02/24/2024 11:32:43 03/01/2024 09:56:05 Acute COVID-19 7220084698 U07.1 pt covid positive 02/18, restested today poke with [facility] pharmacist for best antiviral choice and availabili ty with rec as below feels he is doing better and nasal jules resolvedco nt02/21 startedmol nupiravir 800 mg po bid x 5 daysrobitu ssin 10 ml po q 4 hours prn coughairbo rne isolation precaution s per facilityEn courage fluids, goal >2L/dvital s dailymonit or for sequelae Dementia 56341728 F02.80 baseline dementiaco ntinue supportive caremonito r for behaviorsp sych eval prn [id number] Chandrika Vasques NP [facility] [address] [address] 03/28/2024 11:53:05 03/30/2024 12:55:25 Dementia 94146378 F02.80 baseline dementiaco ntinue supportive caremonito r for behaviorsp sych eval prn Benign pro static hyperplasia 974658198 N40.1 pt with hx of bph now reporting he is urinating frequently and all over the place refu ses straight cath post void and bladder scanner not availhas been on flomax in the past with good results03/01 9 start flomax 0.4 mg po qhs03/28 start urinalysis with c & smonitor [id number] Chandrika Vasques NP [facility] [address] [address] 03/30/2024 10:50:02 04/01/2024 13:41:47 Benign prostatic hyperplasia 194985676 N40.1 pt with hx of bph now reporting he is urinating frequently and all over the place refu ses straight cath post void and bladder scanner not availhas been on flomax in the past with good results03/01 9 start flomax 0.4 mg po qhs03/28 start urinalysis with c & s shows uti see above: cefuroxime 250 mg po bid x 7 days and probiotic x 7 days as above will cont flomax aswell as it is likely related to bothmonito r Dementia 44720550 F02.80 baseline dementiaco ntinue supportive caremonito r for behaviorsp sych eval prn Urinary tr act infectious disease 14528867 N39.0 pt with hx of bph now reporting he is urinating frequently and all over the place refu ses straight cath post void and bladder scanner not availhas been on flomax in the past with good results03/01 9 start flomax 0.4 mg po qhs03/28 start urinalysis with c & s, see above: cefuroxime 250 mg po bid x 7 days and probiotic x 7 dayson 04/07 start nitrofuran toin 50 mg po daily indefinite for UTI prophylact icmonitor [id number] Chandrika Vasques NP [facility] [address] [address] 04/07/2024 13:22:15 04/12/2024 15:43:30 Urinary tract infectious disease 13695807 N39.0 pt with hx of bph now reporting he is urinating frequently and all over the place refu ses straight cath post void and bladder scanner not availhas been on flomax in the past with good results03/01 9 start flomax 0.4 mg po qhs03/28 start urinalysis with c & s, see above: cefuroxime 250 mg po bid x 7 days and probiotic x 7 days04/07 start nitrofuran toin 50 mg po daily indefinite for UTI prophylact icmonitor Benign pro static hyperplasia 033292193 N40.1 contflomax 0.4 mg po qhsmonitor Dementia 04380193 F02.80 baseline dementiaco ntinue supportive caremonito r for behaviorsp sych eval prn Paroxysmal atrial fibrillation 289437774 I48.0 contxarelt o 20 mg qdmetoprol ol 25 mg bidmonitor for rate control Coronary arteriosclerosis 27118937 I25.10 lipitor 40 mg qdplavix 75 mg qdmetoprol ol 25 mg bidmonitor for sx Essential hypertension 91146827 I10 currently stablemoni tor bp and need to titrate medsmetopr olol 25 mg bidmonitor for sx [id number] Chandrika Vasques NP [facility] [address] [address] 05/26/2024 12:11:33 05/27/2024 11:45:26 Dementia 10165707 F02.80 baseline dementiaco ntinue supportive caremonito r for behaviorsp sych eval prn Respirator y tract congestion and cough 583003492 R05.9 pt with congestion x 2 days with cough and sputumcxr 2 views for cough and congcbc with diff and bmp tomcovid testmucine x dm 600/30 mg po bid x 10 daysmonito r [id number] Chandrika Vasques NP [facility] [address] [address] 05/27/2024 14:46:58 05/30/2024 13:20:37 Dementia 21606585 F02.80 baseline dementiaco ntinue supportive caremonito r for behaviorsp sych eval prn Respirator y tract congestion and cough 906711091 R05.9 pt with congestion x 3 days with cough and sputumcxr 2 views for cough and jules negative for pna on c with diff and bmp tomcovid testlabs stable with low stable h/hmucinex dm 600/30 mg po bid x 10 daysmonito r Anemia 815288409 D64.9 with low h/h today and vague hx of anemiaNo s/s active bleedingpl avix and xareltocbc next week with iron studiesMon itor [id number] Chandrika Vasques NP [facility] [address] [address] 05/30/2024 14:41:56 05/31/2024 13:55:10 Dementia 64509322 F02.80 baseline dementiaco ntinue supportive caremonito r for behaviorsp sych eval prn Respirator y tract congestion and cough 235527747 R05.9 pt with congestion x 3 days with cough and sputumcxr 2 views for cough and jules negative for pna on with diff and bmp as abovecovid testlabs stable with low stable h/hmucinex dm 600/30 mg po bid x 10 days totalmonit or Anemia 473092323 D64.9 with low h/h today and vague hx of anemiaNo s/s active bleedingpl avix and xareltocbc with diff and iron studies on sid er need for iron or supplement sMonitor [id number] Chandrika Vasques NP [facility] [address] [address] 06/01/2024 13:49:00 06/02/2024 15:25:13 Respiratory tract congestion and cough 619788480 R05.9 pt with congestion x 1 week, overall improving slightlycx r 2 views for cough and jules negative for pna on c with diff and bmp as above stablecovi d testecoura ge fluids > 2 liters perdaylabs stable with low stable h/h in pastrobitu ssin 10 ml po q 6 hour prn for persistant cough if neededmuci nex dm 600/30 mg po bid x 10 days total*no delsym while on mucinex DM (same med dextrometh orphan)nsg and pt educated.p t should not have meds in roommonito r Dementia 67013063 F02.80 baseline dementiaco ntinue supportive caremonito r for behaviorsp sych eval prn Anemia 118901164 D64.9 anemia and labs improved since last setNo s/s active bleedingpl avix and xareltolab s as abovewill hold off on starting iron at this time, he is not a fan of iron pillMonito r [id number] Chandrika Vasques NP [facility] [address] 06/03/2024 11:18:16 06/06/2024 12:06:18 Respiratory tract congestion and cough 527512384 R05.9 pt with congestion x 1-2 weeks, overall improving slightlycx r 2 views for cough and jules negative for pna on 05/26cbc with diff and bmp as above stable with anemiacovi d test negativeec ourage fluids > 2 liters perdaylabs stable with low stable h/h in pastrobitu ssin 10 ml po q 6 hour prn for persistant cough if neededmuci nex dm 600/30 mg po bid x 10 days totalmonit or Dementia 02146740 F02.80 baseline dementiaco ntinue supportive caremonito r for behaviorsp sych eval prn10/4 no longer on prevagen, family no longer bringing in Anemia 349638736 D64.9 anemia and labs improved since last set with slight GABRIELA anemiaNo s/s active bleedingpl avix and xareltolab s as abovehe is not a fan of iron pill, however agrees to multivitam in with ironMonito r Constipation 27116969 K5 9.00 with hard large yacqte65/4 increase colace to 100 mg po bidhouse regimen prnmonitor [id number] STEPHANIE MYLES NP [facility] [address] 06/28/2024 14:25:49 06/29/2024 10:53:55 Dementia 80807286 F02.80 baseline dementia, no behaviors presentlyc ontinue HS trazodone, melatonin, and gabapentin continue supportive caremonito r for behaviorsp sych eval prn Urinary tr act infectious disease 71671833 N39.0 Back on flomax, already on terazosin, ? need to continue long termComple ashley abx, for acute UTI, now on daily nitrofuran toin 50 mg po daily for prophylact ic tx.monitor Benign pro static hyperplasia 159780011 N40.1 continue:t erazosin 5 mg qdflomax 0.4 mg po qhs added, ? need to continue buttermaker helper as already on terazosinm onitor Paroxysmal atrial fibrillation 847963264 I48.0 contxarelt o 20 mg qdmetoprol ol 25 mg bidmonitor for rate control Coronary arteriosclerosis 04784211 I25.10 lipitor 40 mg qdplavix 75 mg qdmetoprol ol 25 mg bidmonitor for sx Essential hypertension 40972523 I10 currently stablecont inue metoprolol 25 mg bid (also on for rate control for AF)monitor for sx Respirator y tract congestion and cough 307919658 R05.9 pt with congestion x 2 weeks, now improving. CXR negLabs stableResp onding well to conservati ve medsmonito r Anemia 307851027 D64.9 anemia and labs improvedNo s/s active bleedingpl avix and xareltolab s as abovehe is not a fan of iron pill, however agrees to multivitam in with ironMonito r Constipation 34841576 K5 9.00 with hard large /4 increase colace to 100 mg po bidhouse regimen prnmonitor Chronic low back pain 27 8563131 M54.50 Currently comfortabl e on daily and prn ultram, diclofenac daily, HS gabapentin . PRN baclofen and APAPMonito r Acute non- ST segment elevation myocardial infarction 396066512 I21.4 metoprolol 25 mg bid as aboveatorv astatin 40 mg qdplavix 75 mg qd Monitor for chest pain, sobf/u with cards prn [id number] Chandrika Vasques NP [facility] [address] 07/08/2024 16:28:11 07/11/2024 11:31:36 Dementia 71071559 F02.80 baseline dementia, no behaviors presentlyc ontinue HS trazodone, melatonin, and gabapentin continue supportive caremonito r for behaviorsp sych eval prn Urinary tr act infectious disease 46188500 N39.0 Back on flomax, already on terazosin, ? need to continue long termcont nitrofuran toin 50 mg po daily for prophylact ic tx.monitor Depressive disorder 3548 9007 F33.8 pt with agitation and increased behaviors1 09/08 start trazodone 25 mg po q am and cont 50 mg po qhspsych consult prnmonitor Recurrent falls 95467498 2 R29.6 pt with recurrent fall, fall on 07/08 without injuriessu pportive caresafety precaution smonitor [id number] Chandrika Vasques NP [facility] [address] 07/18/2024 14:45:59 07/19/2024 10:30:32 Dementia 89185101 F02.80 baseline dementia, no behaviors presently1 09/17 start trazodone 25 mgpo q 12 hours prn agitation/ anxiety x 14 dayscontin uetrazodon e 50 mg qhstrazodo ne 25 mg po ammelatoni n 5mg qhsgabapen tin 100 mg po pmcontinue supportive caremonito r for behaviorsp sych eval prn Urinary tr act infectious disease 51353033 N39.0 contflomax , already on terazosin, ? need to continue long termnitrof urantoin 50 mg po daily for prophylact ic tx.monitor Depressive disorder 2870 9007 F33.8 pt with agitation and increased behaviors latelycont trazodone 25 mg po q am and cont 50 mg po qhspsych consult prnmonitor 07/18 cbc and bmp and ua tomstart trazodone 25 mg po q 12 hours prn x 14 days [id number] [facility] [address] [place] [address] 07/25/2024 09:14:33 07/27/2024 08:46:44 Depressive disorder 40800086 F33.8 pt with agitation and increased behaviors latelycont trazodone 25 mg po q am and cont 50 mg po qhspsych consult prnmonitor 07/25reord ered cbc and bmp, lfts, pt/inr and ua for adelsoif labs wnl, psych rec depakote 250 mg cap q am(if depakote started-co nsider level in a few weeks)cont trazodone 25 mg po q 12 hours prn x 14 days Dementia 54059481 F02.80 baseline dementia, no behaviors presently1 09/24 cont trazodone 25 mgpo q 12 hours prn agitation/ anxiety x 14 days total (started on 07/18)see aboveconti nuetrazodo ne 50 mg qhstrazodo ne 25 mg po ammelatoni n 5mg qhsgabapen tin 100 mg po pmcontinue supportive caremonito r for behaviorsp sych eval prn Urinary tr act infectious disease 32214496 N39.0 contflomax , already on terazosin, ? need to continue long termnitrof urantoin 50 mg po daily for prophylact ic tx.monitor as above with ua for infection [id number] Chandrika Vasques NP [address] [address] 08/03/2024 13:44:15 08/04/2024 11:58:16 Depressive disorder 29598994 F33.8 pt with agitation and increased behaviors latelycont trazodone 25 mg po q am and cont 50 mg po qhspsych consult prnmonitor 08/03 per psych rec on 07/25 start depakote 250 mg cap q am( labs now received and can start)steph w trazodone 25 mg po q 12 hours prn x 14 daysvalpro ic acid level in one month Dementia 09929055 F02.80 baseline dementia, with behaviors (unclear if this is new or baseline)1 2/4urinaly sis with c ssee abovecontt razodone 25 mg po q 12 hours prn agitation/ anxiety x 14 days total (started on 07/18)traz odone 50 mg qhstrazodo ne 25 mg po ammelatoni n 5mg qhsgabapen tin 100 mg po pmcontinue supportive caremonito r for behaviorsp sych eval prn Anemia 078515215 D64.9 anemia and labs improved since last set with slight GABRIELA anemiaNo s/s active bleedingpl avix and xareltolab s as abovecont multivitam in with iron08/03 restart iron qdMonitorc bc in 1 month 09/03/24 [id number] Chandrika Vasques NP [facility] [address] 08/05/2024 12:40:02 08/08/2024 13:26:36 Dementia 00329504 F02.80 baseline dementia, with behaviors (unclear if this is new or baseline, possibly related to UTI.see abovecontt razodone 25 mg po q 12 hours prn agitation/ anxiety x 14 daystrazod one 50 mg qhstrazodo ne 25 mg po ammelatoni n 5mg qhsgabapen tin 100 mg po pmcontinue supportive caremonito r for behaviorsp sych eval prn Urinary tr act infectious disease 94838529 N39.0 contflomax need to continue retirement prophylaxi s for freq UTInitrofu rantoin 50 mg po daily for prophylact ic tx. on hold while on levaquin, then kduarc38/ start levaquin 750 mg po qd x 7days with probiotic 1 tab po bid x 9 daysmonito r for sequelae. [id number] Chandrika Vasques NP [facility] [address] 08/08/2024 09:16:11 08/09/2024 13:37:49 Urinary tract infectious disease 77821245 N39.0 contflomax need to continue buttermaker helper prophylaxi s for freq UTInitrofu rantoin 50 mg po daily for prophylact ic tx. on hold while on levaquin/a ugmentin, then /6 start levaquin 750 mg po qd x 7days with probiotic 1 tab po bid x 9 days08/08 culture and sensitivit ies show resistant to levaquin but susceptibl e to augmentin. Will change to augmentin 500 mg po bid x 7 days with probiotic and will hold nitrofuran toin while on augmentin. monitor for sequelae. Dementia 70552611 F02.80 baseline dementia, with behaviors (unclear if this is new or baseline, possibly related to UTI.see abovecontt razodone 25 mg po q 12 hours prn agitation/ anxiety x 14 daystrazod one 50 mg qhstrazodo ne 25 mg po ammelatoni n 5mg qhsgabapen tin 100 mg po pmcontinue supportive caremonito r for behaviorsp sych eval prn [id number] Chandrika Vasques NP [facility] [place] [address] 09/07/2024 12:34:44 09/08/2024 10:36:19 Urinary tract infectious disease 43903968 N39.0 contflomax need to continue buttermaker helper prophylaxi s for freq UTInitrofu rantoin 50 mg po dailycompl eted levaquin and augmentin for utimonitor for sequelae. Dementia 26792411 F02.80 baseline dementia, with behaviors resolving to baseline sp reatment for uti and depakotese e abovecontt razodone 50 mg qhstrazodo ne 25 mg po ammelatoni n 5mg qhsgabapen tin 100 mg po pmcontinue supportive caremonito r for behaviorsp sych eval prn Depressive disorder 3548 9007 F33.8 pt with agitation and increased behaviors latelycont trazodone 25 mg po q am and cont 50 mg po qhspsych consult prndepakot e 250 mg cap q amvalproic acid level in one month from start Anemia 827135092 D64.9 anemia and labs improved since last set with slight GABRIELA anemiaNo s/s active bleedingpl avix and xareltolab s as abovecont multivitam in with ironiron qdMonitorc bc in 1 month 09/03/24 with improvemen t slight in h/h Recurrent falls 02068325 2 R29.6 pt with recurrent fall, last fall on 07/08 without injuriessu pportive caresafety precaution smonitor Benign pro static hyperplasia 714712075 N40.1 continue:t erazosin 5 mg qdflomax 0.4 mg po qhs added, ? need to continue buttermaker helper as already on terazosinm onitor Paroxysmal atrial fibrillation 660251570 I48.0 contxarelt o 20 mg qdmetoprol ol 25 mg bidmonitor for rate control Coronary arteriosclerosis 18404523 I25.10 lipitor 40 mg qdplavix 75 mg qdmetoprol ol 25 mg bidmonitor for sx Essential hypertension 98019447 I10 currently stablecont inue metoprolol 25 mg bid (also on for rate control for AF)monitor for sx Constipation 69909979 K5 9.00 with hard large stoolscola ce to 100 mg po bidhouse regimen prnmonitor Chronic low back pain 27 5699035 M54.50 Currently comfortabl e on daily and prn ultram, diclofenac daily, HS gabapentin . PRN baclofen and APAPMonito r Acute non- ST segment elevation myocardial infarction 819614232 I21.4 contmetopr olol 25 mg bid as aboveatorv astatin 40 mg qdplavix 75 mg qdMonitor for chest pain, sobf/u with cards prn [id number] [facility] [address] 09/09/2024 14:07:35 09/13/2024 09:32:36 Urinary tract infectious disease 15417209 N39.0 completed levaquin and augmentin for uti in pastcontfl omax1/10dc nitrofuran toin 50 mg po daily as his UTI is not resolved and resistent to thisdue to behaviors and frequent urination will order cefuroxime 250 mg po bid x 10 days with probiotic and monitormon itor for sequelae. Dementia 88757463 F02.80 baseline dementia, with behaviors resolving to baseline sp reatment for uti and depakotese e abovecontt razodone 50 mg qhstrazodo ne 25 mg po ammelatoni n 5mg qhsgabapen tin 100 mg po pmcontinue supportive caremonito r for behaviorsp sych eval prn Depressive disorder 3548 9007 F33.8 pt with agitation and increased behaviors latelycont trazodone 25 mg po q am and cont 50 mg po qhspsych consult prndepakot e 250 mg cap q amvalproic acid level in one month from start Hypocalcemia 2755519 E83 .51 pt with low calcium level 7.71/10 start cholecalci ferol 800 iu admonitorc alcium level prn [id number] Chandrika Vasques NP [facility] [address] [address] 09/30/2024 13:41:43 10/03/2024 15:13:55 Dementia 88731225 F02.80 baseline dementia, with behaviors resolving to baseline sp treatment for uti and depakotese e abovecontt razodone 50 mg qhstrazodo ne 25 mg po ammelatoni n 5mg qhsgabapen tin 100 mg po pmcontinue supportive caremonito r for behaviorsp sych eval prn Nausea, vo miting and diarrhea 5756210 R11.2 pt with nausea, vomiting, diarrhea for a few days and seems resolving with residual nausea decreased appetite and fatigue todaycontd rinking fluids greater 2liters/da yzofran prnimmodiu m prnadvance diet as tolerateds upportive care and management monitorbmp and cbc 2/3 to monitor for elyte imbalances Fatigue 60113066 R53.83 seems fatigue related to gi virus however reports sob at times and illwill order cxr to ro pnamonitor as above [id number] Chandrika Vasques NP [facility] [address] [address] 10/03/2024 11:29:20 10/04/2024 11:47:10 Dementia 75563354 F02.80 baseline dementia, with behaviors resolving to baseline sp treatment for uti and depakotese e abovecontt razodone 50 mg qhstrazodo ne 25 mg po ammelatoni n 5mg qhsgabapen tin 100 mg po pmcontinue supportive caremonito r for behaviorsp sych eval prnweight stable, will monitor weekly Nausea, vo miting and diarrhea 8634379 R11.2 seems resolved, not eating and drinking at baseline and drypt with nausea, vomiting, diarrhea for a few days and not drinking enoughcont drinking fluids greater 2liters/da yzofran prnimmodiu m prnadvance diet as tolerateds upportive care and management monitorbmp and cbc 2/6 to monitor for elyte imbalances cepacol lozenge q 3 hours prn Pneumonia 170847669 J18. 9 see hpi2/2 cxr to ro pnadoxycyc line 100 mg po bid x 10daysadd probiotic 1 tab po bid x 12 dayscbc and bmp on onitor as abovemonit or need to repeat in 3-4 weeks Dehydration 86503510 E86 .0 seems decreased po intake for a week with pna after gi illness10/03 start ivf through periperal iv 2 liters NS @ 80monitor cbc and bmp 10/06 and hydration status Acute kidney injury 1466 9001 N17.9 see above [id number] [facility] [address] 10/06/2024 15:53:01 10/07/2024 14:10:57 Pneumonia 582901643 J18.9 see hpi2/2 cxr to ro pnadoxycyc line 100 mg po bid x 10daysadd probiotic 1 tab po bid x 12 dayscbc and bmp on 10/10monito r as abovemonit or need to repeat in 3-4 weeks2/6 cont above Dehydration 91903834 E86 .0 gi virus resolving, however lips slightly dry, seems improved from a few days start ivf through periperal iv 2 liters NS @ 802/6 start ivf ns @ 80cc/hr x 1 more liter and remove iv after finishedmo nitor cbc and bmp on 10/10 to eval Nausea, vo miting and diarrhea 6019529 R11.2 seems mostly resolved eating and drinking more todaycontd rinking fluids greater 2liters/da yzofran prnimmodiu m prnadvance diet as tolerateds upportive care and management monitorbmp and cbc 10/10 to monitor for elyte imbalances cepacol lozenge q 3 hours prn [id number] [facility] [address] 11/04/2024 13:20:23 11/08/2024 09:24:24 Dehydration 82322753 E86.0 resolved Pneumonia [id number] J18. 9 resolved which started on 10/02 doxycyclin e and probiotic, now completedd ue to notable improvemen t will not order cxr todaymonit or for need Dementia [id number] F02.80 baseline dementia, with behaviors resolving to [...] level in one month from start Hypocalcemia 5632301 E83 .51 pt with low calcium level 7.7choleca lciferol 800 iu admonitorc alcium level prn Anemia 314538888 D64.9 anemia and labs improved since last set with slight GABRIELA anemiaNo s/s active bleedingpl avix and xareltolab s as abovecont multivitam in with ironiron qdMonitorl abs prn Recurrent falls 38269099 2 R29.6 pt with recurrent fall, last fall on 07/08 without injuriessu pportive caresafety precaution smonitor Benign pro static hyperplasia 075447887 N40.1 continue:t erazosin 5 mg qdflomax 0.4 mg po qhs added, ? need to continue retirement as already on terazosinm onitor Paroxysmal atrial fibrillation 184513941 I48.0 contxarelt o 20 mg qdmetoprol ol 25 mg bidmonitor for rate control Coronary arteriosclerosis 49628631 I25.10 lipitor 40 mg qdplavix 75 mg qdmetoprol ol 25 mg bidmonitor for sx Essential hypertension 42440107 I10 currently stablecont inue metoprolol 25 mg bid (also on for rate control for AF)monitor for sx Chronic low back pain 27 6997475 M54.50 Currently comfortabl e on daily and prn ultram, diclofenac daily, HS gabapentin . PRN baclofen and APAPMonito r Acute non- ST segment elevation myocardial infarction 047062477 I21.4 contmetopr olol 25 mg bid as aboveatorv astatin 40 mg qdplavix 75 mg qdMonitor for chest pain, sobf/u with cards prn [id number] Chandrika Vasques NP [address] [place] [address] 11/10/2024 10:27:23 11/14/2024 13:37:53 Dementia 27922571 F02.80 baseline dementia, with behaviors resolving to [...] level in one month from start Hypocalcemia 6459629 E83 .51 pt with low calcium level 7.7choleca lciferol 800 iu admonitorc alcium level prn Anemia 796430110 D64.9 anemia and labs improved since last set with slight GABRIELA anemiaNo s/s active bleedingpl avix and xareltolab s as abovecont multivitam in with ironiron qdMonitorl abs prn Recurrent falls 91962207 2 R29.6 pt with recurrent fall, last fall on 07/08 without injuriessu pportive caresafety precaution smonitor Benign pro static hyperplasia 366257307 N40.1 continue:t erazosin 5 mg qddc flomax 0.4 mg po qhs added, ? need, no urinary symptoms latelymoni tor Paroxysmal atrial fibrillation 374213480 I48.0 contxarelt o 20 mg qdmetoprol ol 25 mg bidmonitor for rate control Coronary arteriosclerosis 35458975 I25.10 lipitor 40 mg qdplavix 75 mg qdmetoprol ol 25 mg bidmonitor for sx Essential hypertension 78100707 I10 currently stablecont inuemetopr olol 25 mg bid (also on for rate control for AF)monitor for sx Chronic low back pain 27 5802624 M54.50 Currently comfortabl e on daily and prn ultram, diclofenac daily, HS gabapentin . PRN baclofen and APAPMonito r Acute non- ST segment elevation myocardial infarction 396100463 I21.4 contmetopr olol 25 mg bid as aboveatorv astatin 40 mg qdplavix 75 mg qdMonitor for chest pain, sobf/u with cards prn [id number] Chandrika Vasques, SUMANTH [address] [address] 11/14/2024 10:40:13 11/16/2024 11:51:48 Dementia 64179077 F02.80 baseline dementia, with behaviors resolving to [...] in one month from start Abnormal weight 07338887 R63.4 with approx 7 lbs weigth loss in last monthspeec h to re evaldietic jerri to eval for supplement sremeron 7.5 mg po qhs x 1 week, then 15 mg po qhsmonitor weights weekly [id number] LAYLA WILD, DAVE [address] [address] 11/26/2024 08:12:55 11/26/2024 19:08:27 Dementia 02350729 F02.80 baseline dementia, with behaviors resolving to [...] one month from start Aspiration pneumonia 422 002451 J69.0 Continue cefuroxime 500 mg BID for 4 days. End date 11/30/24.Con tinue ground mechanical /altered NDD2 and nectar thick liquid to minimized risk of aspiration .Monitor closely.Sp eech eval, PRN. Urinary tr act infectious disease 96340447 N39.0 Treated with ceftriaxon e, and currently is on cefuroxime .Continue until 11/30/24.Wbc stable.Mon itor s/s. Benign pro static hyperplasia 271831322 N40.1 continue:t erazosin 5 mg qddc flomax 0.4 mg po qhs added, ? need, no urinary symptoms latelymoni tor Acute kidney injury 1466 9001 N17.9 on 11/25/24, Bun 20, Cr 0.98.Encou rage PO fluid.Lucretia tor labs, CBC, CMP on Thursday. Hypocalcemia 2222815 E83 .51 pt with low calcium level 7.8 on 11/25.rajeev calciferol 800 iu admonitorc alcium level prn Anemia 821378301 D64.9 Hgb trending down.No s/s active bleedingpl avix and xareltolab s as abovecont multivitam in with iron.Added Vitamin C 500 mg daily.iron qdMonitorC BC, CMP, iron, ferritin and B12 check on Thursday. Recurrent falls 73841848 2 R29.6 pt with recurrent fall, last fall on 07/08 without injuriessu pportive caresafety precaution smonitor Paroxysmal atrial fibrillation 570952661 I48.0 contxarelt o 20 mg qdmetoprol ol 25 mg bidmonitor for rate control Coronary arteriosclerosis 95216494 I25.10 lipitor 40 mg qdplavix 75 mg qdmetoprol ol 25 mg bidmonitor for sx Essential hypertension 97697100 I10 currently stable, runs low side.Monit or BP daily for 7 days.metop rolol 25 mg bid (also on for rate control for AF)monitor for sx Chronic low back pain 27 9253553 M54.50 Currently comfortabl e on daily and prn ultram, diclofenac daily, HS gabapentin . PRN baclofen and APAPMonito r Acute non- ST segment elevation myocardial infarction 409618491 I21.4 contmetopr olol 25 mg bid as aboveatorv astatin 40 mg qdplavix 75 mg qdMonitor for chest pain, sobf/u with cards prn [id number] Chandrika Vasques NP [address] [address] 11/30/2024 11:29:59 11/30/2024 12:06:40 Anemia 229681981 D64.9 anemia and labs improved since last set with slight GABRIELA anemiaper staff having large black stool yesterday critical of hgb 6.6 with recent 7.8 hgb in hosp and appears to be losing bloodhe remains lethargic, pale, and fatigued with recent asp pna, and uti returned from [facility] [place] [place] on 11/24 or 11/25will send to ER for transfusio n Health Concerns Section Related Observation LastModified by Organization Detai ls LastModified Time None Recorded Concern Status LastModified by Organization Details LastModified Time None Recorded Advance Directives Directive Y: Payers Encounter Date Sequence Insurance Name Policy Number Policy Robles Covered Member ID Robles Member ID Guarantor Name 11/04/2024 1 MEDICARE B-[place]: [facility] [id number] 10 [employer]gr[employer] 11/10/2024 1 MEDICARE B-ME: [facility] [employer] [id number] All [employer]gr[employer] 11/14/2024 1 MEDICARE [place]: [facility] [employer] [id number] 10 All [employer]gr[employer] 11/26/2024 1 MEDICARE B-[place]: [facility] [employer] [id number] 10 All Sugrue 11/30/2024 1 MEDICARE B-[place]: [facility] [employer] [id number] 0 [id number] 10 All Sugrue Notes Date Note Type Note Provider Name and Address Organization Details Recorded Time 11/04/2024 text/html Jason is an 84 y o male [facility] resident, seen for a routine rounding visit. PMH: dementia, PAF, CAD, history ischemic cardiomyopathy, history of CVA, hypertension, hyperlipidemia, AAA Pt with workup done showing cxr with right lower lobe infilitrate started on doxycycline on 10/02 with improvement. Also had GI virus and slightly dehydrated with dry lips. He has received 3 liters of NS with improvement. Labs reviewed and improving with some dehydration still. On exam, He is up motoring around in wheelchair in NAD looking for his tomato soup. no difficulty breathing, sob, cough, or wheezing today. Euvolemic. Eating and drinking at baseline without concerns from nursing. BIMS completed 12/15/23: score 15 refuses on 11/04/34morse: 11/04/24 high riskMOLST: full codeHCP invoked 11/03/22 Chandrika Vasques NP [address], [address], [place], [address], [facility] 11/04/2024 13:31:08 11/10/2024 text/html Jason is an 84 y o male LT resident, seen for an annual visit. PMH: dementia, PAF, CAD, history ischemic cardiomyopathy, history of CVA, hypertension, hyperlipidemia, AAA On 04/07/25 He was seen seen in regards to urinating frequently and all over the place at times . A urinalysis was done showing >100,000 ecoli and resistant to cipro and levofloxacin and ampicillin/sulbactam and indeterminate to augmentin with sensitivities to pcn and cephalosporins. He also has a history of bph and requested flomax for the frequent urination and urinating everywhere on 03/28/24 and restarted. He completed cefuroxime 250 mg po bid x 7days with probiotic for UTI. He has had several UTIs recently with confusion and behaviors and prophylactic therapy recommended with nitrofurantoin 50 mg po daily on 04/07/24 for recurrent UTIs. On 08/05 All was seen for increased behaviors now with positive UTI showing large leukocytes, blood, and 17 epith, 50-100,000 gram neg bacilli, started on levaquin, and on 08/08 senstiviites back showing resistance and changed to augmentin. Since then he remains on nitrofurantoin for prophylaxic UTI treatment. Since then the following UTI was resistant to nitrofurantoin and was discontinued.In July he was seen by psych and started on depakote with some improvement in behaviors. Pt with workup done showing cxr with right lower lobe infilitrate started on doxycycline on 10/02 with improvement. Also had GI virus and slightly dehydrated with dry lips. He has received 3 liters of NS with improvement. Labs reviewed and improving with some dehydration still. On exam, He is sitting up in bed sideways and confused trying to get straight. He is helped at this visit. He denies any pain, diff urinating, or complaints. Seems to like tomato soup and requests 3 soups daily. Overall, he remains on decline and weighs 136 lbs down from 151 lbs last year. BIMS completed 12/15/23: score 6/15 refuses on 11/04/34morse: 11/04/24 high riskMOLST: full codeHCP invoked 11/03/22 Chandrika Vasques NP [address], [facility] [address], [place], [address], [facility] 11/10/2024 10:45:54 11/14/2024 text/html Jason is an 84 y o male LTC resident, seen for an acute visit. PMH: dementia, PAF, CAD, history ischemic cardiomyopathy, history of CVA, hypertension, hyperlipidemia, AAA Pt seen by [facility] for consult noting weight loss of 7 lbs from 143 lbs to 136 lbs. He is often particular about his foods. According to staff he is eating and drinking well. He remains on chopped texture and thin liquids. He often is upset about this, however has a history of aspiration so he was not advanced. Will ask speech to see him again for swallow eval. He is open to trying remeron, will order. On exam, he is sitting in his wheelchair in NAD. He denies pain or other complaints. He does look thin and clothes baggy today. BIMS completed 12/15/23: score 6/15 refuses on 11/04/34morse: 11/04/24 high riskMOLST: full codeHCP invoked 11/03/22 Chandrika Vasques NP [address], [address], [place], [address], [facility] 11/14/2024 11:08:10 11/26/2024 text/html Jason is an 84 y o male re-admitted to [facility] after acute hospitalization of pneumonia, UTI, metabolic encephalopathy and anemia from [facility]. PMH: dementia, PAF, CAD, history ischemic cardiomyopathy, [...] riskMOLST: full codeHCP invoked 11/03/22 LAYLA WILD, SHAKE TABLE OPERATOR [address], [address], [place], [address], [facility] 11/28/2024 13:41:26 11/30/2024 text/html Pt is seen for a n acute rounding visit. Pt is an 84 yo male recently sent out for hypotension, resp failure, and confusion and re-admitted to [facility] after acute hospitalization with dx of asp pneumonia, UTI, metabolic encephalopathy and anemia from [facility] and returned on 11/25/24. PMH: dementia, PAF, [...] a very large black bm yesterday. vitals 34336, 58, 96% ra, 18 rr, 97.8 temp [...] high riskMOLST: full codeHCP invoked 11/03/22 Chandrika aVsques NP [address], [address], [place], [address], [facility] 11/30/2024 12:06:38
--- OUTSIDE RECORDS SUMMARY | 2024-11-30 16:47 | XMS_ITS | Encounter Summary ---
Author Organization [facility] Address [address] [place] [address] Care Team Providers Care Behavioral Therapist Name Role Phone Cole Pete MD Primary Care Provider [phone] Encounter Details Date Type Department Care Team (Late st Contact Info) Description 07/26/2024 Lab Requisition [facility] - Main Lab [address] [facility] [place] [address] Cole Pete MD [address] [place] [address] [address] [facility] [address] Pulmonary heart disease, unspecified (CMS/HCC); Unspecified dementia, unspecified severity, without behavioral disturbance, psychotic disturbance, mood disturbance, and anxiety (CMS/HCC); Hyperlipidemia, unspecified; Unspecified atrial fibrillation (CMS/HCC) Social History Tobacco [...] Procedure Name Priority Date/Time Associated Diagnosis Comments PROTHROMBIN TIME WITH INR Routine 07/26/2024 4:50 AM EST Pulmonary heart disease, unspecified (CMS/HCC) Unspecified dementia, unspecified severity, without behavioral disturbance, psychotic disturbance, mood disturbance, and anxiety (CMS/HCC) Hyperlipidemia, unspecified Unspecified atrial fibrillation (CMS/HCC) COMPLETE BLOOD COUNT Routine 07/26/2024 4:50 AM EST Pulmonary heart disease, unspecified (CMS/HCC) Unspecified dementia, unspecified severity, without behavioral disturbance, psychotic disturbance, mood disturbance, and anxiety (CMS/HCC) Hyperlipidemia, unspecified Unspecified atrial fibrillation (CMS/HCC) VALPROIC ACID LEVEL, TOTAL Routine 07/26/2024 4:50 AM EST Pulmonary heart disease, unspecified (CMS/HCC) Unspecified dementia, unspecified severity, without behavioral disturbance, psychotic disturbance, mood disturbance, and anxiety (CMS/HCC) Hyperlipidemia, unspecified Unspecified atrial fibrillation (CMS/HCC) HEPATIC FUNCTION PANEL Routine 07/26/2024 4:50 AM EST Pulmonary heart disease, unspecified (CMS/HCC) Unspecified dementia, unspecified severity, without behavioral disturbance, psychotic disturbance, mood disturbance, and anxiety (CMS/HCC) Hyperlipidemia, unspecified Unspecified atrial fibrillation (CMS/HCC) documented in this encounter Results * (ABNORMAL) Valproic acid level, total (07/26/2024 4:50 AM EST) Pathologist [facility] Valproic Acid, Total <3(L) 50 - 100 mcg/mL LAB CHEMISTRY METHOD 07/27/2024 11:[address] [facility] Blood Venous blood specimen / Unknown Venipuncture / Unknown 07/26/2024 4:50 AM EST 07/26/2024 8:48 AM EST us Cole Pete MD LAB BLOOD ORDERABLES Final Resul t [facility] [address] [place] [address], * (ABNORMAL) Hepatic function panel (07/26/2024 4:50 AM EST) Total Protein 5.3(L) 6.0 - 8.0 g/dL LAB CHEMISTRY METHOD 07/26/2024 9:[address] [facility] Albumin 2.4(L) 3.2 - 5.0 g/dL LAB CHEMISTRY METHOD 07/26/2024 9:[address] [facility] Total Bilirubin 0.4 0.0 - 1.4 mg/dL LAB CHEMISTRY METHOD 07/26/2024 9:26 AM [facility] Bilirubin, Direct 0.2 0.0 - 0.3 mg/dL LAB CHEMISTRY METHOD 07/26/2024 9:26 AM [facility] Bilirubin, Indirect 0.2 0.0 - 1.1 mg/dL LAB CHEMISTRY METHOD 07/26/2024 9:26 AM [facility] ALT (SGPT) 10 10 - 60 unit/L LAB CHEMISTRY METHOD 07/26/2024 9:26 AM [facility] AST (SGOT) 8(L) 10 - 42 unit/L LAB CHEMISTRY METHOD 07/26/2024 9:26 AM [facility] Alkaline Phosphatase 95 42 - 121 unit/L LAB CHEMISTRY METHOD 07/26/2024 9:26 AM [facility] Blood Venous blood specimen / Unknown Venipuncture / Unknown 07/26/2024 4:50 AM EST 07/26/2024 8:48 AM EST Cole Pete MD LAB BLOOD ORDERABLES Final Resul t [facility] [address] [place] [address], [place] [phone] * (ABNORMAL) Prothrombin time with INR (07/26/2024 4:50 AM EST) Protime 19.3(H) 10.6 - 13.9 sec LAB COAGULATION METHOD 07/26/2024 9:[address] [facility] INR 1.5 LAB COAGULATION METHOD 07/26/2024 9:38 AM [facility] Blood Venous blood specimen / Unknown Venipuncture / Unknown 07/26/2024 4:50 AM EST 07/26/2024 8:48 AM EST us Cole Pete MD LAB BLOOD ORDERABLES Final Resul t [facility] [address] [place] [address], * (ABNORMAL) Complete blood count (07/26/2024 4:50 AM EST) WBC 11.0(H) 4.8 - 10.8 K/mcL LAB HEMETOLOGY METHOD 07/26/2024 9:04 AM [facility] RBC 2.40(L) 4.50 - 5.50 M/mcL LAB HEMETOLOGY METHOD 07/26/2024 9:04 AM [facility] Hemoglobin 7.0(L) 13.5 - 17.5 g/dL LAB HEMETOLOGY METHOD 07/26/2024 9:04 AM [facility] Hematocrit 22.0(L) 42.0 - 54.0 % LAB HEMETOLOGY METHOD 07/26/2024 9:04 AM [facility] MCV 90.9 79.0 - 98.0 FL LAB HEMETOLOGY METHOD 07/26/2024 9:04 AM [facility] MCH 28.9 27.0 - 32.0 pcg LAB HEMETOLOGY METHOD 07/26/2024 9:04 AM [facility] MCHC 31.8(L) 32.0 - 37.0 g/dL LAB HEMETOLOGY METHOD 07/26/2024 9:04 AM [facility] RDW 16.1(H) 11.0 - 15.0 % LAB HEMETOLOGY METHOD 07/26/2024 9:04 AM [facility] Platelets 263 130 - 400 K/mcL LAB HEMETOLOGY METHOD 07/26/2024 9:04 AM [facility] MPV 10.7 7.0 - 11.0 FL LAB HEMETOLOGY METHOD 07/26/2024 9:[address] [facility] NRBC 0.0 <1.0 % LAB HEMETOLOGY METHOD 07/26/2024 9:[address] [facility] NRBC Absolute 0.00 <0.10 K/mcL LAB HEMETOLOGY METHOD 07/26/2024 9:[address] [facility] Blood Venous blood specimen / Unknown Venipuncture / Unknown 07/26/2024 4:50 AM EST 07/26/2024 8:48 AM EST us Cole Pete MD LAB BLOOD ORDERABLES Final Resul t [facility] [address] [place] [address], documented in this encounter Visit Diagnoses Diagnosis Pulmonary heart disease, unspecified Unspecified dementia, unspecified severity, without behavioral disturbance, psychotic disturbance, mood disturbance, and anxiety (CMS/HCC) Hyperlipidemia, unspecified Unspecified atrial fibrillation (CMS/HCC) documented in this encounter Care Teams Behavioral Therapist Relationship Specialty Start Date End Date Cole Pete MD [address] [place] [address], [id number] PCP - General Family Medicine 07/31/24 documented as of this encounter
[2024-11-30] MEDS: iohexoL 350 MG/ML 100 ML INFUS..BTL IV (17:12)
--- NOTE | 2024-11-30 19:50 | PHA.MEDREC ---
Pharmacy Consult ? Medication Reconciliation Pharmacy has completed the medication reconciliation. Med list obtained from dayo ruggiero
--- NOTE | 2024-11-30 22:13 | PC.NURSE ---
Awaiting orders for MD for plan of care.
[2024-12-01 00:12] VITALS: BP 153/47; PULSE 59; RESP 15
--- NOTE | 2024-12-01 00:59 | PC.NURSE ---
report given to ginna rahman at [facility] at 0054 who verbalized understanding d/c education and in agreement. intensive care unit registered nurse aware for need ems transport back to facility.
[2024-12-01 01:52] VITALS: BP 153/47; PULSE 59; RESP 15; TEMP 36.6; O2SAT 96
== END 2024-12-01 01:52 | disposition skilled nursing facility (03) ==
PROVIDERS: Physician Assistant Medical; Emergency Provider Emergency Medicine; PCP Family Medicine
DX: I71.40 Abdominal aortic aneurysm, without rupture, unspecified (principal); D64.9 Anemia, unspecified; R00.1 Bradycardia, unspecified; R79.89 Other specified abnormal findings of blood chemistry; Z79.899 Other long term (current) drug therapy; Z79.01 Long term (current) use of anticoagulants; Z03.818 Encounter for observation for suspected exposure to other biological agents ruled out
CPT/HCPCS: 0241U; 36415; 36430; 74178; 80053; 83735; 85025; 85610; 86850; 86900; 86901; 86923; 93005; 99285; P9016; Q9967

== ENCOUNTER → 2024-11-30 13:54 | Outpatient (BNV) | payer MEDICARE, MEDICAID, SELFPAY | PROVIDERS: Emergency Provider Emergency Medicine; PCP Family Medicine; Visit Provider Internal Medicine | DX: I44.0 Atrioventricular block, first degree (principal); I49.1 Atrial premature depolarization; R00.1 Bradycardia, unspecified | CPT/HCPCS: 93010 ==

== ENCOUNTER → 2024-11-30 16:40 | Outpatient (BNV) | payer MEDICARE, MEDICAID, SELFPAY | PROVIDERS: Emergency Provider Emergency Medicine; PCP Family Medicine; Visit Provider Specialist | DX: I71.40 Abdominal aortic aneurysm, without rupture, unspecified (principal); K57.30 Diverticulosis of large intestine without perforation or abscess without bleeding; J90 Pleural effusion, not elsewhere classified; R91.8 Other nonspecific abnormal finding of lung field | CPT/HCPCS: 74178 ==

== ENCOUNTER 2024-12-13 11:11 | Outpatient (AMB) | payer MEDICARE, MEDICAID, SELFPAY ==
--- NOTE | 2024-12-13 11:37 | A.OFFVIS_ITS ---
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 He had originally been seen in the hospital for critically low hemoglobin and at that time a CAT scan was performed. There was a 5.5 cm infrarenal aneurysm discovered at that point. He now presents for routine follow-up. He has no interval changes. [facility], LATER [facility] Medical History Corneal abrasion, left Compression fracture of L3 vertebra Compression fracture of L3 vertebra NSTEMI (non-ST elevated myocardial infarction) Left rib fracture Rotator cuff dysfunction Anxiety and depression Ulnar neuropathy Vertebral fracture Acetabular fracture Interstitial lung disease Tubular adenoma of colon Coronary artery disease GERD (gastroesophageal reflux disease) Hypertension Abdominal aortic aneurysm CVA (cerebral vascular accident) Hypercholesterolemia Paroxysmal A-fib Surgical History S/P cardiac catheterization History of bursectomy History of bilateral cataract extraction History of hemorrhoidectomy History of appendectomy Family History Father Medical history unknown Mother Medical history unknown Social History Household Members: Other Household Members Other:: real care Housing: [facility] Unable to assess alcohol history related to: Unable to respond Alcohol intake: never Patient Tobacco Use Status: Never used Tobacco e-Cigarette/Vaping Use: Never Used Second Hand Smoke Exposure: No Advance Directives Date on File: 02/02/23 service: No Current occupational status: retired Cognitive needs: No Hearing needs: Yes Vision needs: Yes Review of Systems Const All systems reviewed & are unremarkable except as noted in HPI and below Reports no additional complaints ENT Reports Normal hearing present Card Denies chest pain, Denies chest pain at rest, Denies chest pain with activity and Denies pedal edema Resp Denies cough GI Denies abdominal pain Musc Denies abnormal gait, Denies muscle cramps and Denies radiating pain into limb Skin/Breast Denies skin ulcer and Denies wounds Neuro Reports Normal hearing present and Denies abnormal gait Psych Reports no additional complaints Physical Exam Const Other: In stretcher General: cooperative, healthy appearing and comfortable Orientation/consciousness: oriented to person, oriented to place and oriented to time HEENT Head: Yes normal to inspection Neck Neck: Yes normal visual inspection Carotids: no bruits Chest Chest palpation & inspection: normal inspection of the chest Resp Effort & Inspection: normal respiratory effort and able to speak in complete sentences Auscultation: clear to auscultation bilaterally, no crackles, no rales, no rhonchi and no wheezes Cardio Rate: regular rate Rhythm: regular rhythm Heart sounds: S1 normal heart sound present and S2 normal heart sound present Bruits: no carotid bruits Peripheral pulses: Peripheral pulses 2+ throughout GI Inspection: Yes normal to inspection Skin Wounds: no wounds Hair: normal Neuro General: oriented to person, oriented to place and oriented to time Cranial nerves: Yes CN's II-XII intact bilaterally and Yes Normal hearing present Cognition (Neuro): normal cognition Motor exam (neuro): 5/5 motor strength present throughout Extrem Other: venous exam: No significant superficial varicosities or spider telangiectasias, minimal edema General: No clubbing, No cyanosis and No edema Psych Appearance: grossly normal Mental Status: mental status grossly normal Speech and movement: Normal speech and movement present Assessment & Plan Assessment & Plan (1) Abdominal aortic aneurysm: Comment: January 2015 Dr. Kramer 4.7 cm, 02/2016 4.5 cm, May 2017 4.7 cm November 2019 4.7 x 5 cm December 2020 4.5 x 4.6 cm no change 07/2021 5 x 5.2 12/23 - 5.5 cm Code(s): I71.4 - Abdominal aortic aneurysm, without rupture Category: Medical Qualifiers: Abdominal aorta location: infrarenal aorta Presence of rupture: without rupture Qualified Code(s): I71.43 - Infrarenal abdominal aortic aneurysm, without rupture Plan: In short patient has abdominal aortic aneurysm about 5.5 cm. Had a previous discussion with the family regarding this. At his age and overall condition I do not believe he is a surgical candidate. He has just crossed over the threshold for size of repair. Looking at the risks benefits overall age and comorbidities I do not advise any surgical repair at the current time. He will follow up with us on an as-needed basis. Thank you for allowing us to assist in his care. If there are any questions or concerns please do not hesitate to contact us. Coding Level of Care Code Est Pt Level 4 (20179) Diagnoses Infrarenal abdominal aortic aneurysm (AAA) without rupture I71.43 Abdominal aorta location: infrarenal aorta Presence of rupture: without rupture
--- OUTSIDE RECORDS SUMMARY | 2024-12-13 13:48 | XMS_ITS | Encounter Summary ---
Author Organization [facility] Address [address] [place] [address] Care Team Providers Care Pumper Head Name Role Phone Cole Pete MD Primary Care Provider [phone] Encounter Details Date Type Department Care Team (Late st Contact Info) Description 09/01/2024 Lab Requisition [facility] - Main Lab [address] [facility] [place] [address] Cole Pete MD [address] [place] [address] 204 [facility] [phone] Encounter for therapeutic drug level monitoring; [...] mcg/mL LAB CHEMISTRY METHOD 09/02/2024 11:14 AM [facility] Comment:Results verified by repeat testing Blood Venous blood specimen / Unknown Venipuncture / Unknown 09/02/2024 6:59 AM EST 09/02/2024 9:09 AM EST us Cole Pete MD LAB BLOOD ORDERABLES Final Resul t [facility] [address] [place] [address], [place] [phone] * (ABNORMAL) Basic metabolic panel (09/02/2024 6:59 AM EST) Sodium 140 133 - 145 mmol/L LAB CHEMISTRY METHOD 09/02/2024 10:43 AM [facility] Potassium 5.0 3.5 - 5.5 mmol/L LAB CHEMISTRY METHOD 09/02/2024 10:43 AM [facility] Chloride 111(H) 96 - 110 mmol/L LAB CHEMISTRY METHOD 09/02/2024 10:43 AM [facility] CO2 26 21 - 32 mmol/L LAB CHEMISTRY METHOD 09/02/2024 10:43 AM [facility] Anion Gap 3 3 - 11 LAB CHEMISTRY METHOD 09/02/2024 10:43 AM [facility] Glucose 93 70 - 100 mg/dL LAB CHEMISTRY METHOD 09/02/2024 10:43 AM [facility] BUN 26(H) 5 - 25 mg/dL LAB CHEMISTRY METHOD 09/02/2024 10:43 AM [facility] Creatinine 1.40(H) 0.70 - 1.30 mg/dL LAB CHEMISTRY METHOD 09/02/2024 10:43 AM [facility] eGFR 49(L) >=60 mL/min/1. 73m2 LAB CHEMISTRY METHOD 09/02/2024 10:43 AM EST [facility] Comment:Calculation based on the??Chronic Kidney Disease Epidemiology Collaboration (CKD-EPI) equation refit??without adjustment for race. BUN/Creatinine Ratio 18.6 LAB CHEMISTRY METHOD 09/02/2024 10:43 AM [facility] Calcium 8.1(L) 8.5 - 10.5 mg/dL LAB CHEMISTRY METHOD 09/02/2024 10:43 AM [facility] Blood Venous blood specimen / Unknown Venipuncture / Unknown 09/02/2024 6:59 AM EST 09/02/2024 9:09 AM EST us Cole Pete MD LAB BLOOD ORDERABLES Final Resul t [facility] [address] [place] [address], * (ABNORMAL) Complete blood count (09/02/2024 6:59 AM EST) WBC 7.4 4.8 - 10.8 K/mcL LAB HEMETOLOGY METHOD 09/02/2024 10:32 AM [facility] RBC 2.60(L) 4.50 - 5.50 M/mcL LAB HEMETOLOGY METHOD 09/02/2024 10:32 AM [facility] Hemoglobin 7.4(L) 13.5 - 17.5 g/dL LAB HEMETOLOGY METHOD 09/02/2024 10:32 AM [facility] Hematocrit 22.8(L) 42.0 - 54.0 % LAB HEMETOLOGY METHOD 09/02/2024 10:32 AM [facility] MCV 89.1 79.0 - 98.0 FL LAB HEMETOLOGY METHOD 09/02/2024 10:32 AM [facility] MCH 28.9 27.0 - 32.0 pcg LAB HEMETOLOGY METHOD 09/02/2024 10:32 AM EST [facility] MCHC 32.5 32.0 - 37.0 g/dL LAB HEMETOLOGY METHOD 09/02/2024 10:32 AM EST [facility] RDW 15.7(H) 11.0 - 15.0 % LAB HEMETOLOGY METHOD 09/02/2024 10:32 AM [facility] Platelets 283 130 - 400 K/mcL LAB HEMETOLOGY METHOD 09/02/2024 10:32 AM EST [facility] MPV 10.4 7.0 - 11.0 FL LAB HEMETOLOGY METHOD 09/02/2024 10:32 AM [facility] NRBC 0.0 <1.0 % LAB HEMETOLOGY METHOD 09/02/2024 10:32 AM [facility] NRBC Absolute 0.00 <0.10 K/mcL LAB HEMETOLOGY METHOD 09/02/2024 10:32 AM [facility] Blood Venous blood specimen / Unknown Venipuncture / Unknown 09/02/2024 6:59 AM EST 09/02/2024 9:09 AM EST us Cole Pete MD LAB BLOOD ORDERABLES Final Resul t [facility] [address] [place] [address], documented in this encounter Visit Diagnoses Diagnosis Encounter for therapeutic drug level monitoring Essential (primary) hypertension Unspecified essential hypertension documented in this encounter Care Teams Pumper Head Relationship Specialty Start Date End Date Cole Pete MD [address] [place] [address], [phone] PCP - General Family Medicine 07/31/24 documented as of this encounter
--- OUTSIDE RECORDS SUMMARY | 2024-12-13 13:48 | XMS_ITS | Encounter Summary ---
Author Organization [facility] Address [address] [place] [address] Care Team Providers Care Ladderman Name Role Phone Cole Pete MD Primary Care Provider [phone] Encounter Details Date Type Department Care Team (Late st Contact Info) Description 09/06/2024 Lab Requisition [facility] - Main Lab [address] [facility] [place] [address] Cole Pete MD [address] [place] [address] [address] [place], [phone] Unspecified dementia, unspecified severity, without behavioral disturbance, psychotic disturbance, mood disturbance, and anxiety (CMS/HCC V24, CMS/HCC V28); Unspecified atrial fibrillation (CMS/HCC V24, CMS/HCC V28) Social History Tobacco Use Types Packs/Day Years [...] MD LAB BLOOD ORDERABLES Final Resul t [facility] [address] [place] [address], [place] [phone] * (ABNORMAL) Complete blood count (09/07/2024 6:30 AM EST) WBC 9.3 4.8 - 10.8 K/mcL LAB HEMETOLOGY METHOD 09/07/2024 11:25 AM EST [facility] RBC 2.70(L) 4.50 - 5.50 M/mcL LAB HEMETOLOGY METHOD 09/07/2024 11:25 AM [facility] Hemoglobin 7.7(L) 13.5 - 17.5 g/dL LAB HEMETOLOGY METHOD 09/07/2024 11:25 AM [facility] Hematocrit 24.0(L) 42.0 - 54.0 % LAB HEMETOLOGY METHOD 09/07/2024 11:25 AM [facility] MCV 89.6 79.0 - 98.0 [...] FL LAB HEMETOLOGY METHOD 09/07/2024 11:25 AM EST [facility] NRBC 0.0 <1.0 % LAB HEMETOLOGY METHOD 09/07/2024 11:25 AM EST [facility] NRBC Absolute 0.00 <0.10 K/mcL LAB HEMETOLOGY METHOD 09/07/2024 11:25 AM EST [facility] Blood Venous blood specimen / Unknown Venipuncture / Unknown 09/07/2024 6:30 AM EST 09/07/2024 10:11 AM EST us Cole Pete MD LAB BLOOD ORDERABLES Final Resul t [facility] [address] [place] [address], documented in this encounter Visit Diagnoses Diagnosis Unspecified dementia, unspecified severity, without behavioral disturbance, psychotic disturbance, mood disturbance, and anxiety (CMS/HCC V24, CMS/HCC V28) Unspecified atrial fibrillation (CMS/HCC V24, CMS/HCC V28) documented in this encounter Care Teams Ladderman Relationship Specialty Start Date End Date Cole Pete MD [address] [place] [address], [phone] PCP - General Family Medicine 07/31/24 documented as of this encounter
--- OUTSIDE RECORDS SUMMARY | 2024-12-13 13:48 | XMS_ITS | Encounter Summary ---
Author Organization [facility] Address [address] [place] [address] Care Team Providers Care Canal Driver Name Role Phone Cole Pete MD Primary Care Provider [phone] Encounter Details Date Type Department Care Team (Late st Contact Info) Description 09/06/2024 Lab Requisition [facility] - Main Lab [address] [facility] [place] [address] Cole Pete MD [address] [facility] [address] [place], [phone] Dysuria Social History Tobacco Use Types [...] Escherichia coli(A) AUGUST 09/08/2024 11:09 AM EST [facility] Urine Urine specimen obtained by clean catch procedure / Unknown Non-blood Collection / Unknown 09/06/2024 6:15 AM EST 09/06/2024 9:34 AM EST Narrative [facility] - 09/08/2024 11:09 AM [...] MICROBIOLOGY - GENERAL ORDER NANCY Final Result [facility] [address] [place] [address], [place] [phone] * (ABNORMAL) Urinalysis with reflex microscopic and culture (09/06/2024 6:15 AM EST) Specific [place] Urine 1.019 1.003 - 1.030 LAB URINALYSIS - AUTOMATED METHOD 09/06/2024 9:34 AM EST [facility] pH, Urine 6.5 5.0 - 8.0 pH LAB URINALYSIS - AUTOMATED METHOD 09/06/2024 9:34 AM [facility] Leukocytes, Urine Large(A) Negative LAB URINALYSIS - AUTOMATED METHOD 09/06/2024 9:34 AM [facility] Nitrite, Urine Negative Negative LAB URINALYSIS - AUTOMATED METHOD 09/06/2024 9:34 AM [facility] Protein, Urine 30(A) <=Trace mg/dL LAB URINALYSIS - AUTOMATED METHOD 09/06/2024 9:34 AM [facility] Glucose, Urine Negative Negative mg/dL LAB URINALYSIS - AUTOMATED METHOD 09/06/2024 9:34 AM [facility] Ketones, Urine Trace(A) Negative mg/dL LAB URINALYSIS - AUTOMATED METHOD 09/06/2024 9:34 AM [facility] Urobilinogen , Urine 0.2 0.2 - 1.0 mg/dL LAB URINALYSIS - AUTOMATED METHOD 09/06/2024 9:34 AM [facility] Bilirubin, Urine Negative Negative LAB URINALYSIS - AUTOMATED METHOD 09/06/2024 9:34 AM [facility] Blood, Urine Moderate(A) Negative LAB URINALYSIS - AUTOMATED METHOD 09/06/2024 9:34 AM [facility] RBC, Urine 17.5(H) 0 - 4 /HPF LAB URINALYSIS - AUTOMATED METHOD 09/06/2024 9:34 AM [facility] WBC, Urine 127.4(H) 0 - 4 /HPF LAB URINALYSIS - AUTOMATED METHOD 09/06/2024 9:34 AM [facility] Squamous Epithelial, Urine 10 0 - 60 /LPF LAB URINALYSIS - AUTOMATED METHOD 09/06/2024 9:34 AM [facility] Bacteria, Urine Many(A) Negative /HPF LAB URINALYSIS - AUTOMATED METHOD 09/06/2024 9:34 AM [facility] Hyaline Casts, Urine 3.8(H) 0 - 3 /LPF LAB URINALYSIS - AUTOMATED METHOD 09/06/2024 9:34 AM EST [facility] Urine Urine specimen obtained by clean catch procedure / Unknown Non-blood Collection / Unknown 09/06/2024 6:15 AM EST 09/06/2024 8:41 AM EST us Cole Pete MD LAB URINE ORDERABLES Final Resul t [facility] [address] [place] [address], [place] [phone] * Sharma urine culture tube (09/06/2024 6:15 AM EST) Extra Tube Hold for add-ons. 09/06/2024 10:01 AM EST [facility] Comment:Auto resulted. Urine Urine specimen obtained by clean catch procedure / Unknown Non-blood Collection / Unknown 09/06/2024 6:15 AM EST 09/06/2024 8:41 AM EST us Cole Pete MD LAB URINE ORDERABLES Final Resul t Performing Organization Address [facility]/ZIP Co de Phone Number [facility] [address] [place] [address], [place] [phone] documented in this encounter Visit Diagnoses Diagnosis Dysuria documented in this encounter Care Teams Canal Driver Relationship Specialty Start Date End Date Cole Pete MD [address] [facility] [address] [place], [phone] PCP - General Family Medicine 07/31/24 documented as of this encounter
--- OUTSIDE RECORDS SUMMARY | 2024-12-13 13:48 | XMS_ITS | Continuity of Care Document ---
Author Organization [facility], [facility] Address [address] [place] [address] Care Team Providers Care Set Up Person Name Role Phone JASMIN HATCH - 2ND FLOOR OTHER HEIDI PANDEY Primary Care Provider [phone] Assessment No assessment recorded. Plan of Treatment Reminders Order Date Submit Date Provider Last Modified By Organization Details Last Modified Time Details Appointments None record ed. Lab None record ed. Referral None record ed. Procedures None record ed. Surgeries None record ed. Imaging None record ed. Medication Orders None record ed. Patient TargetsNo targets recorded. Patient InstructionsNo instructions recorded. Reason for Referral None Reported. Problems Name Problem SNOMED Code Status Onset Date Resolution Date Notes Provider Name and Address Organization Details Recorded Time Recurrent falls 661323688 Active 2022 Not Available [facility] 4 15:36:09 Acute non-ST segment elevation myocardial infarction 850656921 Active 2022 Not Available [facility] 4 15:36:10 Urinary tract infectious disease 35747435 Active 2022 Not Available [facility] 4 15:36:10 Altered mental status 418469548 Active 2022 Not Available [facility] 4 15:36:10 Dysphagia 27253045 Active 2022 Not Available [facility] 4 15:36:10 Anemia 331506442 Active 2022 Not Available [facility] 4 15:36:09 Loose stool 567235149 Active 2022 Not Available [facility] 4 15:36:09 Insomnia 308447395 Active 2023 Danni Joel MD [address] [place] [address], [address], [place], [address] , [facility] 4 17:14:19 Osteonecrosis 668266490 Active 2023 Chandrika Vasques NP [address] [facility], [address], [place], [address] , [facility] [employer] [facility] [facility] 4 17:02:51 Candidiasis of the esophagus 66409036 Active 2023 STEPHANIE MYLES NP [address] [facility], [facility] [address], [place], [address] , [facility] 4 13:32:32 Cough 60658294 Active 2023 Chandrika Vasques NP [address] [facility], [facility] [address], [place], [address] , [facility] 4 12:48:25 Hypocalcemia 6867029 Active 2024 Chandrika Vasques NP [address] [facility], [facility] [address], [place], [address] , [facility] 5 14:31:10 Acute cystitis 38200859 Active 2018 Not Available [facility] 4 15:36:10 Dementia 69764751 Active 2018 Not Available [facility] 4 15:36:10 Closed fracture of acetabulum 54563068 Active 2018 Not Available [facility] 4 15:36:09 Osteoarthriti s 501613452 Active 2018 Not Available [facility] 4 15:36:09 Paroxysmal atrial fibrillation 870937212 Active 2018 Not Available [facility] 4 15:36:09 Coronary arteriosclero sis 25069971 Active 2018 Not Available [facility] 4 15:36:10 History of cerebrovascul ar accident 372688277 Active 2018 Not Available [facility] 4 15:36:09 Retention of urine 488495573 Active 2018 Not Available [facility] 4 15:36:09 Essential hypertension 68915474 Active 2018 Not Available [facility] 4 15:36:10 Obstructive sleep apnea syndrome 69662845 Active 2018 Not Available [facility] 4 15:36:10 Gastroesophag eal reflux disease 583887438 Active 2018 Not Available [facility] 4 15:36:09 Diverticuliti s 405355806 Active 2018 Not Available [facility] 4 15:36:09 Mixed hyperlipidemi a 513660154 Active 2018 Not Available [facility] 4 15:36:09 Depressive disorder 55496690 Active 2018 Not Available [facility] 4 15:36:09 Chronic low back pain 180150827 Active 2018 Not Available [facility] 4 15:36:09 Fracture of scapular body 91958388 Active 2018 Not Available [facility] 4 15:36:10 Teardrop fracture of cervical vertebra 524534711 Active 2018 Not Available [facility] 4 15:36:09 Unsteady gait Active 2018 Not Available [facility] 4 15:36:09 Gastroesophag eal reflux disease without esophagitis 197999314 Active 2018 Not Available [facility] 4 15:36:09 Impaired cognition 237927549 Active 2018 Not Available [facility] 4 15:36:09 Problem Notes None recorded. Medical Equipment None Reported. Allergies No known drug allergies Medications Name Sig Start Date Stop Date Status Note LastModified by Organization Details LastModified Time tramadol 50 mg tablet 1 tab po daily and q 4 hours prn pain 024 active Not Available Not Available Not Avai lable Vitals Date Recorded Body height Body weight Body mass index (BMI) Heart rate Respiratory rate Body temperature Oxygen saturation Oxygen saturation in Arterial blood by Pulse oximetry Systolic blood pressure Diastolic blood pressure Provider Name and Address Organization Details Last Updated DateTime 5 175.26 cm 25575.7 9 g 19.6 kg/m2 70 /min 18 /min 97.9 [degF] 94 % 94 % 122 mm[Hg] 62 mm[Hg] Chandrika Vasques NP [address], [address], [place], [address], [facility] 09:28:31 Social History Question Answer Notes LastModified by Organizat ion Details LastModified Time Tobacco Smoking Status Never Smoker Coel Pete MD [address], [address], [place], [address], [facility] 11/03/2022 13:48:54 Do You Have An Advance Directive? Yes [email or web address] Information not available 11/04/2022 What Is Your Level Of Alcohol Consumption? None [email or web address] Information not available 11/03/2022 What Is Your Code Status? Full Code [email or web address] Information not available 11/04/2022 Where Do You Live? [facility] Information not available 10/26/2023 Legal Guardian? No Informati on not available 10/26/2023 Do You Have A Medical Power Of Rad Technologist? Yes Valid Copy In PCC, Invoked [email or web address] Information not available 11/14/2022 What Was The Date Of Your Most Recent Tobacco Screening? 12/15/2023 [email or web address] Information not available 12/15/2023 Do You Have An Out Of Hospital DNR? No Information not available 10/26/2023 What Is Your Relationship Status? Information not available 10/26/2023 Do You Use Any Illicit Or Recreational Drugs? No [email or web address] Information not available 11/14/2022 Has Tobacco Cessation Counseling Been Provided? No N/A As Pt Is A Non-smoker Information not available 10/26/2023 Do You Or Have You Ever Used Any Other Forms Of Tobacco Or Nicotine? No [email or web address] Information not available 11/14/2022 Sex: Unknown Functional Status None recorded. Mental Status None recorded. Family History Relationship Description Onset Age of this Age Resolved Age Notes LastModified by Organization Details LastModified Time Father Coronary arterioscler [email or web address] Not available 2022 20:16:51 Mother Coronary arterioscler osis [email or web address] Not available 2022 20:16:51 Medical History No medical history recorded. Immunizations Vaccine Type Date Status Note Provider Nam e and Address Organization Details Recorded Time COVID-19, mRNA, LNP-S, bivalent, PF, 50 mcg/0.5 mL or 25mcg/0.25 mL dose 1 completed Not Available [facility] 09/23/2023 15:36:10 COVID-19, mRNA, LNP-S, bivalent, PF, 50 mcg/0.5 mL or 25mcg/0.25 mL dose 1 completed Not Available [facility] 09/23/2023 15:36:10 COVID-19, mRNA, LNP-S, bivalent, PF, 50 mcg/0.5 mL or 25mcg/0.25 mL dose 2 completed Not Available [facility] 09/23/2023 15:36:10 Influenza, adjuvanted, quadrivalent, PF 3 completed Yennifer mak [facility] 10/19/2023 12:00:11 pneumococcal polysaccharide PPV23 3 completed Yennifer mak, [facility] 10/19/2023 12:54:08 Past Encounters Encounter ID Performer Location Encounter Start Date Encounter Closed Date Diagnosis/Indication Diagnosis SNOMED-CT Code Diagnosis ICD10 Code Diagnosis Note [id number] Chandrika Vasques NP [address] [address] 11/10/2024 10:27:23 11/14/2024 13:37:53 Dementia 73173051 F02.80 baseline dementia, with behaviors resolving to baseline sp treatment for uti and depakotese e abovecontt razodone 50 mg qhstrazodo ne 25 mg po ammelatoni n 5mg qhsgabapen tin 100 mg po pmcontinue supportive caremonito r for behaviorsp sych eval prnweight stable, will monitor weekly Acute kidney injury 1466 9001 N17.9 see above Depressive disorder 8938 9007 F33.8 pt with agitation and increased behaviors latelycont trazodone 25 mg po q am and cont 50 mg po qhspsych consult prndepakot e 250 mg cap q amvalproic acid level in one month from start Hypocalcemia 1201688 E83 .51 pt with low calcium level 7.7choleca lciferol 800 iu admonitorc alcium level prn Anemia 871039040 D64.9 anemia and labs improved since last set with slight GABRIELA anemiaNo s/s active bleedingpl avix and xareltolab s as abovecont multivitam in with ironiron qdMonitorl abs prn Recurrent falls 98238227 2 R29.6 pt with recurrent fall, last fall on 07/08 without injuriessu pportive caresafety precaution smonitor Benign pro static hyperplasia 745031459 N40.1 continue:t erazosin 5 mg qddc flomax 0.4 mg po qhs added, ? need, no urinary symptoms latelymoni tor Paroxysmal atrial fibrillation 333257915 I48.0 contxarelt o 20 mg qdmetoprol ol 25 mg bidmonitor for rate control Coronary arteriosclerosis 23423828 I25.10 lipitor 40 mg qdplavix 75 mg qdmetoprol ol 25 mg bidmonitor for sx Essential hypertension 13799851 I10 currently stablecont inuemetopr olol 25 mg bid (also on for rate control for AF)monitor for sx Chronic low back pain 27 2230738 M54.50 Currently comfortabl e on daily and prn ultram, diclofenac daily, HS gabapentin . PRN baclofen and APAPMonito r Acute non- ST segment elevation myocardial infarction 560501515 I21.4 contmetopr olol 25 mg bid as aboveatorv astatin 40 mg qdplavix 75 mg qdMonitor for chest pain, sobf/u with cards prn [id number] Chandrika Vasques NP [facility] [address] [address] 11/14/2024 10:40:13 11/16/2024 11:51:48 Dementia 90374798 F02.80 baseline dementia, with behaviors resolving to baseline sp treatment for uti and depakotese e abovecontt razodone 50 mg qhs and trazodone 25 mg po ammelatoni n 5mg qhsgabapen tin 100 mg po pmcontinue supportive caremonito r for behaviorsp sych eval prnweight stable, will monitor weekly Depressive disorder 2220 9004 F33.8 conttrazod one 25 mg po q am and cont 50 mg po qhspsych consult prndepakot e 250 mg cap q amvalproic acid level in one month from start Abnormal weight 88619193 R63.4 with approx 7 lbs weigth loss in last monthspeec h to re evaldietic jerri to eval for supplement sremeron 7.5 mg po qhs x 1 week, then 15 mg po qhsmonitor weights weekly [id number] LAYLA WILD, [employer] [address] [address] 11/26/2024 08:12:55 12/02/2024 13:50:30 Dementia 48726690 F02.80 baseline dementia, with behaviors resolving to [...] one month from start Aspiration pneumonia 422 293621 J69.0 Continue cefuroxime 500 mg BID for 4 days. End date 11/30/24.Con tinue ground mechanical /altered NDD2 and nectar thick liquid to minimized risk of aspiration .Monitor closely.Sp eech eval, PRN. Urinary tr act infectious disease 60773264 N39.0 Treated with ceftriaxon e, and currently is on cefuroxime .Continue until 11/30/24.Wbc stable.Mon itor s/s. Benign pro static hyperplasia 640758355 N40.1 continue:t erazosin 5 mg qddc flomax 0.4 mg po qhs added, ? need, no urinary symptoms latelymoni tor Acute kidney injury 1466 9001 N17.9 on 11/25/24, Bun 20, Cr 0.98.Encou rage PO fluid.Lucretia tor labs, CBC, CMP on Thursday. Hypocalcemia 6586319 E83 .51 pt with low calcium level 7.8 on 11/25.rajeev calciferol 800 iu admonitorc alcium level prn Anemia 787009970 D64.9 Hgb trending down.No s/s active bleedingpl avix and xareltolab s as abovecont multivitam in with iron.Added Vitamin C 500 mg daily.iron qdMonitorC BC, CMP, iron, ferritin and B12 check on Thursday. Recurrent falls 74591561 2 R29.6 pt with recurrent fall, last fall on 07/08 without injuriessu pportive caresafety precaution smonitor Paroxysmal atrial fibrillation 861963986 I48.0 contxarelt o 20 mg qdmetoprol ol 25 mg bidmonitor for rate control Coronary arteriosclerosis 82941192 I25.10 lipitor 40 mg qdplavix 75 mg qdmetoprol ol 25 mg bidmonitor for sx Essential hypertension 72542201 I10 currently stable, runs low side.Monit or BP daily for 7 days.metop rolol 25 mg bid (also on for rate control for AF)monitor for sx Chronic low back pain 27 3594722 M54.50 Currently comfortabl e on daily and prn ultram, diclofenac daily, HS gabapentin . PRN baclofen and APAPMonito r Acute non- ST segment elevation myocardial infarction 306323920 I21.4 contmetopr olol 25 mg bid as aboveatorv astatin 40 mg qdplavix 75 mg qdMonitor for chest pain, sobf/u with cards prn [id number] Chandrika Vasques NP [facility] [address] [address] 11/30/2024 11:29:59 12/02/2024 14:55:39 Anemia 318866119 D64.9 anemia and labs improved since last set with slight GABRIELA anemiaper staff having large black stool yesterday critical of hgb 6.6 with recent 7.8 hgb in hosp and appears to be losing bloodhe remains lethargic, pale, and fatigued with recent asp pna, and uti returned from [facility] on 11/24 or 11/25will send to ER for transfusio n [id number] Chandrika Vasques NP [facility] [address] 12/01/2024 12:37:07 12/05/2024 08:35:18 Anemia 409619531 D64.9 anemia and labs improved since last set with slight GABRIELA anemiaper staff having large black stool yesterday critical of hgb 6.6 with recent 7.8 hgb in hosp and appears to be losing bloodhe remains lethargic, pale, and fatigued with recent asp pna, and uti returned from [facility] [place] on 11/24 or returned here and has noted AAA felt not urgent for surgery but should fu with vascular outpt, no active bleeding foundwas given 1 unit RBCs in ERstart cbc and bmp on mondaystop xareltomon itor for s/s of bleeding/b lack stools/hyp otension Aspiration pneumonia 422 876308 J69.0 completed cefuroxime 500 mg BID for 4 days. End date 11/30/24.Con tinue ground mechanical /altered NDD2 and nectar thick liquid to minimized risk of aspiration .Monitor closely.Sp eech eval, PRN. Urinary tr act infectious disease 06554609 N39.0 Treated with ceftriaxon e, and currently just completed cefuroxime 11/30Wbc stable.Mon itor s/s. Dementia 14241210 F02.80 baseline dementia, with behaviors resolving to baseline sp treatment for uti and depakotese e abovecontt razodone 50 mg qhs and trazodone 25 mg po ammelatoni n 5mg qhsgabapen tin 100 mg po pmcontinue supportive caremonito r for behaviorsp sych eval prnweight stable, will monitor weekly Depressive disorder 4778 9007 F33.8 conttrazod one 25 mg po q am and cont 50 mg po qhspsych consult prndepakot e 250 mg cap q amvalproic acid level in one month from start Benign pro static hyperplasia 435712102 N40.1 continue:t erazosin 5 mg qdmonitor Acute kidney injury 1466 9001 N17.9 on 11/25/24, Bun 20, Cr 0.98.Encou rage PO fluid.Lucretia tor labs, CBC, CMP on Thursday. Hypocalcemia 4353749 E83 .51 pt with low calcium level 7.8 on 11/25.rajeev calciferol 800 iu admonitorc alcium level prn Recurrent falls 34120649 2 R29.6 pt with recurrent fall, last fall on 07/08 without injuriessu pportive caresafety precaution smonitor Paroxysmal atrial fibrillation 972568747 I48.0 contstop xarelto 15 mg qd, discussed with family and anemia, was rec with last hospitaliz ationmetop rolol 25 mg bidmonitor for rate control Coronary arteriosclerosis 33169059 I25.10 lipitor 40 mg qdplavix 75 mg qdmetoprol ol 25 mg bidmonitor for sx Essential hypertension 01353555 I10 currently stablemeto prolol 25 mg bid (also on for rate control for AF)monitor for sx Chronic low back pain 27 3600092 M54.50 Currently comfortabl e on daily and prn ultram, diclofenac daily, HS gabapentin . PRN baclofen and APAPMonito r Acute non- ST segment elevation myocardial infarction 492320664 I21.4 contmetopr olol 25 mg bid as aboveatorv astatin 40 mg qdplavix 75 mg qdMonitor for chest pain, sobf/u with cards prn Abdominal aortic aneurysm without rupture 32859159 I71.40 12/01 returned here and has noted AAA 5.5 cm with mural thrombus felt not urgent for surgery but should fu with vascular outpt, no active bleeding foundwas given 1 unit RBCs in ERstart cbc and bmp on tor for s/s of bleeding/b lack stoolsrema ins on xarelto 15 mg po bidstop xarelto todaycalle d son x 1 today, hcp as pt is invoked to see if he wants surgical fu, nsg to try son again [id number] [facility] [address] 12/05/2024 10:18:17 12/12/2024 11:46:37 Abdominal aortic aneurysm without rupture 37131075 I71.40 has noted AAA 5.5 cm with mural thrombus noted on 12/01/24 er admit felt not urgent for surgery but should fu with vascular outpt, no active bleeding foundwas given 1 unit RBCs in ERmonitor for s/s of bleeding/b lack stoolsxare lto stopped rec from er visit with high fall risk and anemia etc..., son in agreeement son wants surgical fu, nsg to try son againcbc and bmp on thursday Anemia 334836222 D64.9 anemia and labs improved since last set with slight GABRIELA anemiaper staff having large black stool yesterdayh e remains lethargic, pale, and fatigued with recent asp pna, and uti returned from [facility] [place] on 11/24 or 11/25has noted AAA felt not urgent for surgery but should fu with vascular outpt, no active bleeding foundwas given 1 unit RBCs in ER on bc and bmp thursdayr ecently stopped xarelto for high fall risk and anemia, risks discussed with hcpmonitor for s/s of bleeding/b lack stools/hyp otension Aspiration pneumonia 422 327722 J69.0 completed cefuroxime 500 mg BID for 4 days. End date 11/30/24.Con tinue ground mechanical /altered NDD2 and nectar thick liquid to minimized risk of aspiration .Monitor closely.Sp eech eval, PRN. , seems he is noncomplia nt with diet at times per staff12/05 repeat cxr today12/05 cbc and bmp thu tr act infectious disease 53197475 N39.0 Treated with ceftriaxon e, and currently just completed cefuroxime urinalysis with c & s todayMonit or s/s. Dementia 66998799 F02.80 baseline dementia, with behaviors resolving to [...] acid level in one month from start Acute kidney injury 1466 9001 N17.9 on 11/25/24, Bun 20, Cr 0.98.Encou rage PO fluid.Lucretia tor labs, CBC, CMP on Thursday. Recurrent falls 69707323 2 R29.6 pt with recurrent fall, last fall on 12/05 without injuriessu pportive caresafety precaution smonitor Paroxysmal atrial fibrillation 543581436 I48.0 contstop xarelto 15 mg qd, discussed with family and anemia, was rec with last hospitaliz ationmetop rolol 25 mg bidmonitor for rate control Coronary arteriosclerosis 00942053 I25.10 lipitor 40 mg qdplavix 75 mg qdmetoprol ol 25 mg bidmonitor for sx Essential hypertension 49488059 I10 currently boderline bpmetoprol ol 25 mg bid (also on for rate control for AF)monitor for sx Chronic low back pain 27 6028569 M54.50 Currently comfortabl e on daily and prn ultram, diclofenac daily, HS gabapentin . PRN baclofen and APAPMonito r Acute non- ST segment elevation myocardial infarction 372557125 I21.4 contmetopr olol 25 mg bid as aboveatorv astatin 40 mg qdplavix 75 mg qdno longer on xareltoMon itor for chest pain, sobf/u with cards prn [id number] STEPHANIE MYLES NP [facility] [address] [address] 12/06/2024 12:16:54 12/12/2024 12:10:36 Recurrent falls 695767843 R29.6 pt with recurrent falls, last fall on 12/05 without injuriessu pportive caresafety precaution smonitorPT OT eval and tx. prn Abdominal aortic aneurysm without rupture 41795579 I71.40 has noted AAA 5.5 cm with mural thrombus noted on 12/01/24 er admit felt not urgent for surgery but should fu with vascular outpt, no active bleeding foundwas given 1 unit RBCs in ERmonitor for s/s of bleeding/b lack stoolsxare lto stopped rec from er visit with high fall risk and anemia etc..., son in agreeement son wants surgical fu, nsg to try son againcbc and bmp on thursday Anemia 767587139 D64.9 Hgb 7.5, s/p 1 U PRBCs /3 at [facility] ERper staff stool dark/black , but is on FeRepeatin g CBC in am.Off xarelto but still on plavixMoni tor Aspiration pneumonia 422 428976 J69.0 completed cefuroxime 500 mg BID on 11/30 for 4 days.Repea t CXR 12/05 with scattered RLL atelectasi s.Labs stable, repeat in amContinue O2 via NC to keep sats >90%, currently on 2L (? if anemia contributi ng to hypoxia)Co ntinue modified dietMonito r VS. LS, s/s aspiration , Urinary tr act infectious disease 44064108 N39.0 Treated with ceftriaxon e, and currently just completed cefuroxime urinalysis with c & s - not obtained yetMonitor s/s.CBC, BMP in am Dementia 86154267 F02.80 baseline dementia, with behaviors resolving to baseline sp treatment for uti and depakotese e abovecontt razodone 50 mg qhs and trazodone 25 mg po ammelatoni n 5mg qhsgabapen tin 100 mg po pmcontinue supportive caremonito r for behaviorsp sych eval prnweight stable, will monitor weekly Paroxysmal atrial fibrillation 657763878 I48.0 Off xarelto, risk > benefitAdj usting metoprolol dose to 12.5 mg bid, hold for SBP< 100 (due to low BPs)Contin ue to monitor for rate control Essential hypertension 94258842 I10 BP on the low side.Mohsen tan on metoprolol 25 mg bid (also for PAF)Plan -reduce dose to 12.5 mg bid, hold for SBP< 100monitor [id number] Chandrika Vasques NP [address] [address] 12/08/2024 09:27:49 12/12/2024 13:07:10 Recurrent falls 705957699 R29.6 pt with recurrent falls, last fall on 12/05 without injurieshe has poor safety awareness and high fall risk latelysupp ortive caresafety precaution smonitorPT OT eval and tx. prn Anemia 111869288 D64.9 Hgb 7.5, s/p 1 U PRBCs 12/01 at [facility] ERper staff stool dark/black , but is on FeRepeatin g CBC in am as it is boderline4 /10dc diclofenac 75 mg po qd, will increase gabapentin to bidincreas e protonix from 20 mg to 40 mg qddue to risk of bleeding will dc plavix risk vs benefit, discussed with sonOff xarelto per last admit to hosp rec and high riskheme test stools x 3cbc and bmp in am, monitor need to send out for transfusio n Aspiration pneumonia 422 975161 J69.0 completed cefuroxime 500 mg BID on 11/30 for 4 days.Repea t CXR 12/05 with scattered RLL atelectasi s.Continue O2 via NC to keep sats >90%, currently 93% this amContinue modified dietMonito r VS. LS, s/s aspiration ,12/08 IS with 10 reps at least tid x 10days Essential hypertension 59042357 I10 BP on the low side.metop rolol 25 mg bid (also for PAF) reduced to 12.5 mg bid, hold for SBP< 100 on 12/07[facility]ost [facility] Paroxysmal atrial fibrillation 239694605 I48.0 Off xarelto, risk > benefit4/1 0 off plavix risk >benefitme toprolol dose to 12.5 mg bid, hold for SBP< 100 (due to low BPs) recently adjustedCo ntinue to monitor for rate control Urinary tr act infectious disease 07160918 N39.0 Treated with ceftriaxon e, and currently just completed cefuroxime respeat urinalysis with c & s - per hpi -culture pendingMon itor s/s.CBC, BMP in am Abdominal aortic aneurysm without rupture 34781413 I71.40 has noted AAA 5.5 cm with mural thrombus noted on 12/01/24 er admit felt not urgent for surgery but should fu with vascular outpt, no active bleeding found'heme test stools x 3was given 1 unit RBCs in ERmonitor for s/s of bleeding/b lack stoolsxare lto stopped rec from er visit with high fall risk and anemia etc..., son in agreeement son wants surgical fu, nsg to try son againcbc and bmp in am Dementia 12867543 F02.80 baseline dementia, with behaviors resolving to baseline sp treatment for uti and depakotese e abovecontt razodone 50 mg qhs and trazodone 25 mg po ammelatoni n 5mg qhs/10 increase gabapentin from 100 mg po pm to bidcontinu e supportive caremonito r for behaviorsp sych eval prnweight stable, will monitor weekly Osteoarthritis 761418237 M15.0 baseline OAsee below Chronic low back pain 27 [id number] M54.50 Currently comfortabl econt daily and prn ultram4/10 dc diclofenac dailyincre ase gabapentin to bidPRN baclofen and APAPMonito r Health Concerns Section Related Observation LastModified by Organization Detai ls LastModified Time None Recorded Concern Status LastModified by Organization Details LastModified Time None Recorded Payers Encounter Date Sequence Insurance Name Policy Number Policy Robles Covered Member ID Robles Member ID Guarantor Name 12/08/2024 1 MEDICARE B-[place]: [employer] [facility] Ekaterina Dsouza [id number] All Bonnie Notes Date Note Type Note Provider Name and Address Organization Details Recorded Time 12/08/2024 text/html Pt is seen today for an acute visit. PMH: dementia, PAF, CAD, history ischemic cardiomyopathy, history of CVA, hypertension, hyperlipidemia, AAA Following up in regards to a fall and weakness noted yesterday. Labs, UA, and CXR ordered.80 epithelial cells and culture pending. 12/06 UA shows +ketones, small blood, neg nitrate, wbc 16, and culture pending today.12/05 cxr CONCLUSION: There is scattered subsegmental atelectasis in the right lung. Otherwise, no active disease is seen in the chest.Orthostatic bp stable per OCT.12/07 labs show hgb/hct dropping to 7/22 which is boderline and he remains on protonix, iron, and mult with iron.Bp much better lately 110/71 since metoprolol reduced to 12.5 mg po bid, hr 70 and stable, o2 sat 93% ra todayPer chart he is eating and drinking approximately >50%PRN duonebs Due to boderline h/h and high fall risk will dc plavix, diclofenac, increase protonix and gabapentin, check cbc and bmp in am, monitor heme test stools. Plan discussed with son and in agreement to follow closely for now. Risk vs benefit with dc of plavix discussed with son and currently in agreement to dc with anemia, blood transfusions, AAA, and increased falls recently. He currently remains a full code. On exam, Domitila is seen sitting up in bed this am. He is in NAD, pale, and denies any pain, sob, dizziness, or other complaints. His breathing unlabored and lungs clear. He reports eating and drinking okay. BIMS completed 12/15/23: score 6/15 refuses on 11/04/34morse: 11/04/24 high riskMOLST: full codeHCP invoked 11/03/22 Chandrika Vasques NP [address] [facility], [address], [place], [id number], [facility] 12/08/2024 10:26:10
--- OUTSIDE RECORDS SUMMARY | 2024-12-13 13:48 | XMS_ITS | Data Portability ---
Author Organization [facility], Main Office Address [address] [place] [address] Care Team Providers Care Channel Development Manager Name Role Phone JASMIN HATCH - 2ND [...] Address Organization Details Recorded Time Recurrent falls 119638139 Active 2022 Not Available [facility] 4 15:36:09 Acute non-ST segment elevation myocardial infarction 686307303 Active 2022 Not Available [facility] 4 15:36:10 Urinary tract infectious disease 16588571 Active 2022 Not Available [facility] 4 15:36:10 Altered mental status 978744900 Active 2022 Not Available [facility] 4 15:36:10 Dysphagia 61008433 Active 2022 Not Available [facility] 4 15:36:10 Anemia 311693184 Active 2022 Not Available [facility] 4 15:36:09 Loose stool 131748260 Active 2022 Not Available [facility] 4 15:36:09 Insomnia 699647380 Active 2023 Danni Joel MD [address], [place], [address] , [facility] 4 17:14:19 Osteonecrosis 423510942 Active 2023 Chandrika Vasques NP [address] [facility], [address], [place], [address] , [facility] 4 17:02:51 Candidiasis of the esophagus 10557586 Active 2023 STEPHANIE MYLES NP [address] [facility], [place], [address] , [facility] 4 13:32:32 Cough 22435272 Active 2023 Chandrika Vasques NP [address] [facility], [place], [address] , [facility] 4 12:48:25 Hypocalcemia 0505788 Active 2024 Chandrika Vasques NP [address] [facility] [address], [place], [address] , [facility] 5 14:31:10 Acute cystitis 34271171 Active 2018 Not Available [facility] 4 15:36:10 Dementia 64982013 Active 2018 Not Available [facility] 4 15:36:10 Closed fracture of acetabulum 78067084 Active 2018 Not Available [facility] 4 15:36:09 Osteoarthriti s 049824414 Active 2018 Not Available [facility] 4 15:36:09 Paroxysmal atrial fibrillation 560547791 Active 2018 Not Available [facility] 4 15:36:09 Coronary arteriosclero sis 11022593 Active 2018 Not Available [facility] 4 15:36:10 History of cerebrovascul ar accident 348086368 Active 2018 Not Available [facility] 4 15:36:09 Retention of urine 547315702 Active 2018 Not Available [facility] 4 15:36:09 Essential hypertension 79227330 Active 2018 Not Available [facility] 4 15:36:10 Obstructive sleep apnea syndrome 45019958 Active 2018 Not Available [facility] 4 15:36:10 Gastroesophag eal reflux disease 957587181 Active 2018 Not Available [facility] 4 15:36:09 Diverticuliti s 063200659 Active 2018 Not Available [facility] 4 15:36:09 Mixed hyperlipidemi a 107106603 Active 2018 Not Available [facility] 4 15:36:09 Depressive disorder 80643985 Active 2018 Not Available [facility] 4 15:36:09 Chronic low back pain 734578419 Active 2018 Not Available [facility] 4 15:36:09 Fracture of scapular body 22428574 Active 2018 Not Available [facility] 4 15:36:10 Teardrop fracture of cervical vertebra 999023923 Active 2018 Not Available [facility] 4 15:36:09 Unsteady gait Active 2018 Not Available [facility] 4 15:36:09 Gastroesophag eal reflux disease without esophagitis 900071038 Active 2018 Not Available [facility] 4 15:36:09 Impaired cognition 766212251 Active 2018 Not Available [facility] 4 15:36:09 Problem Notes None recorded. Medical Equipment None Reported. Allergies No known drug allergies Medications Name Sig Start Date Stop Date Status Note LastModified by Organization Details LastModified Time tramadol 50 mg tablet 1 tab po daily and q 4 hours prn pain 024 active Not Available Not Available Not Avai lable Vitals Date Recorded Body height Heart rate Respiratory rate Body temperature Oxygen saturation Oxygen saturation in Arterial blood by Pulse oximetry Systolic blood pressure Diastolic blood pressure Provider Name and Address Organization Details Last Updated DateTime 5 175.26 cm 62 /min 15 /min 97.9 [degF] 94 % 94 % 126 mm[Hg] 57 mm[Hg] Chandrika Vasques NP [address] [facility], [place], [address], [facility] 5 12:38:35 Date Recorded Body height Heart rate Respiratory rate Body temperature Oxygen saturation Oxygen saturation in Arterial blood by Pulse oximetry Systolic blood pressure Diastolic blood pressure Provider Name and Address Organization Details Last Updated DateTime 5 175.26 cm 62 /min 16 /min 97.9 [degF] 94 % 94 % 108 mm[Hg] 67 mm[Hg] Chandrika Vasques NP [address] [facility], [address], [place], [address], [facility] 5 10:26:16 Date Recorded Body height Heart rate Respiratory rate Body temperature Oxygen saturation Oxygen saturation in Arterial blood by Pulse oximetry Systolic blood pressure Diastolic blood pressure Provider Name and Address Organization Details Last Updated DateTime 5 175.26 cm 78 /min 18 /min 97.9 [degF] 94 % 94 % 108 mm[Hg] 67 mm[Hg] STEPHANIE MYLES NP [address] [facility] [address], [place], [address], [facility] 5 12:17:26 Date Recorded Body height Body weight Body mass index (BMI) Heart rate Respiratory rate Body temperature Oxygen saturation Oxygen saturation in Arterial blood by Pulse oximetry Systolic blood pressure Diastolic blood pressure Provider Name and Address Organization Details Last Updated DateTime 5 175.26 cm 53497.7 9 g 19.6 kg/m2 70 /min 18 /min 97.9 [degF] 94 % 94 % 122 mm[Hg] 62 mm[Hg] Chandrika Vasques NP [address] [facility], [address], [place], [address], [facility] 5 09:28:31 Date Recorded Body height Heart rate Respiratory rate Body temperature Oxygen saturation Oxygen saturation in Arterial blood by Pulse oximetry Systolic blood pressure Diastolic blood pressure Provider Name and Address Organization Details Last Updated DateTime 5 175.26 cm 62 /min 16 /min 97.8 [degF] 95 % 95 % 125 mm[Hg] 67 mm[Hg] Chandrika Vasques NP [address] [facility], [place], [address], [place] [facility] 5 11:08:34 Social History Question Answer Notes LastModified by Organizat ion Details LastModified Time Tobacco Smoking Status Never Smoker Cole Pete MD [address] [facility], [address], [place], [address], [facility] 11/03/2022 13:48:54 Do You Have An Advance Directive? Yes [email or web address] Information not available 11/04/2022 What Is Your Level Of Alcohol Consumption? None [email or web address] Information not available 11/03/2022 What Is Your Code Status? Full Code [email or web address] Information not available 11/04/2022 [facility] [email or web address] Information not available 10/26/2023 Legal Guardian? No Informati on not available 10/26/2023 Do You Have A Medical Power Of Gas Examiner? Yes Valid Copy In PCC, Invoked [email or web address] Information not available 11/14/2022 What Was The Date Of Your Most Recent Tobacco Screening? 12/15/2023 Information not available 12/15/2023 Do You Have An Out Of Hospital DNR? No Information not available 10/26/2023 What Is Your Relationship Status? Information not available 10/26/2023 Do You Use Any Illicit Or Recreational Drugs? No [email or web address] Information not available 11/14/2022 Has Tobacco Cessation Counseling Been Provided? No N/A As Pt Is A Non-smoker Information not available 10/26/2023 Do You Or Have You Ever Used Any Other Forms Of Tobacco Or Nicotine? No [email or web address] Information not available 11/14/2022 Sex: Unknown Functional Status None recorded. Mental Status None recorded. Family History Relationship Description Onset Age of this Age Resolved Age Notes LastModified by Organization Details LastModified Time Father Coronary arterioscler osis [email or web address] Not available 2022 20:16:51 Mother Coronary arterioscler osis [email or web address] Not available 2022 20:16:51 Medical History No medical history recorded. Immunizations Vaccine Type Date Status Note Provider Nam e and Address Organization Details Recorded Time COVID-19, mRNA, LNP-S, bivalent, PF, 50 mcg/0.5 mL or 25mcg/0.25 mL dose 1 completed Not Available [facility] 09/23/2023 15:36:10 COVID-19, mRNA, LNP-S, bivalent, PF, 50 mcg/0.5 mL or 25mcg/0.25 mL dose 1 completed Not Available [facility] 09/23/2023 15:36:10 COVID-19, mRNA, LNP-S, bivalent, PF, 50 mcg/0.5 mL or 25mcg/0.25 mL dose 2 completed Not Available [facility] 09/23/2023 15:36:10 Influenza, adjuvanted, quadrivalent, PF 3 completed Yennifer mak, [facility] 10/19/2023 12:00:11 pneumococcal polysaccharide PPV23 3 completed Yennifer mak [facility] 10/19/2023 12:54:08 Past Encounters Encounter ID Performer Location Encounter Start Date Encounter Closed Date Diagnosis/Indication Diagnosis SNOMED-CT Code Diagnosis ICD10 Code Diagnosis Note [id number] Rama ALONSO [address] [place] [address] 05/16/2019 06:52:27 05/20/2019 16:28:02 Dementia 72236419 F01.50 unsure of baseline invoke HCP expected decline supportive care Paroxysmal atrial fibrillation 396832137 I48.0 on coumadin atenolol 50mg qd monitor Osteoarthritis 806900071 M15.8 apap, oxycodone as above lidocaine patch monitor Coronary arteriosclerosis 17691288 I25.10 s/p MT meds as above dx added to list History of cerebrovascular accident 338566711 Z86.73 meds as above added to dx Obstructiv e sleep apnea syndrome 59939220 G47.33 added to dx Gastroesop hageal reflux disease 898556245 K21.9 not on meds for this dx added to list monitor Diverticulitis 274187805 K57.92 dx added to list Essential hypertension 13117519 I10 stable atenolol 50mg qd monitor Mixed hyperlipidemia 267 942456 E78.2 not on meds for this dx added to list Retention of urine 36346 4002 R33.8 with galvez catheter in place urology f/u prn monitor Closed fra cture of acetabulum 53736779 S32.492D apap 650mg q4h prn oxycodone 10mg q4h prn colace 100mg bid miralax bid monitor for pain relief PT/OT to maximize function pt remains NWB at this time, using zulma lift f/u ortho prn Acute cystitis 86659395 N30.00 amoxicilli n 500mg q8h to complete 6 more days here since admission galvez catheter in place monitor may get f/u urine in 2 weeks to ensure resolution [id number] LIAN ALONSO [address] [place] [address] 05/17/2019 11:47:50 05/25/2019 08:54:42 Closed fracture of acetabulum 50351136 S32.492D STAT xray of left hip now 2 viewsconti nue apap 650mg q4h prnoxycodo ne 10mg q4h prn PT/OT to maximize function pt remains NWB at this time, using zulma lift send results to ortho if worsenedch air alarm at all times [id number] MD TWAN Jones [address] [place] [address] 05/20/2019 08:04:10 05/25/2019 11:22:45 Gastroesophageal reflux disease 859656193 K21.9 omeprazole 20 mg dailywill monitor Retention of urine 89124 4002 R33.8 will do trial d/c galvez Osteoarthritis 286653426 M15.0 will d/c oxycodoneA PAP 650 mg q6hPT/OT will monitor Dementia 53856536 F02.80 expect declinewil l monitor and support as needed Acute cystitis 58998480 N30.00 amoxicilli n 500 mg q8h - can be d/c'd after today as he will have completed coursewill encourage good hydration Essential hypertension 13505573 I10 atenolol 50 mg dailywill monitor Paroxysmal atrial fibrillation 651900728 I48.0 warfarin to maintain INR 2.0-3.0ate nolol for rate controlwil l monitor [id number] Rama ALONSO [address] [place] [address] 05/20/2019 15:10:48 05/26/2019 03:47:30 Gastroesophageal reflux disease 452689178 K21.9 omeprazole 20 mg dailymonit or for sx relief Retention of urine 82456 4002 R33.8 will start trial d/c galvez 05/20/19 Osteoarthritis 369328441 M15.0 APAP 650 mg h1ohoekcre pain mgmt Dementia 50335895 F02.80 expect declinesup portive care Acute cystitis 33654686 N30.00 completed course of amoxicilli n 500 mg monitor for recurrence sx Essential hypertension 25681378 I10 atenolol 50 mg dailymonit or bp Paroxysmal atrial fibrillation 041475471 I48.0 warfarin to maintain INR 2.0-3.0ate nolol for rate controlmon itor [id number] Rama De [address] [address] [place] [address] 05/23/2019 06:48:55 06/01/2019 13:28:16 Retention of urine 077718932 R33.8 DC of galvez trialled failed x2, pt continues to retain urine greater than 300cc and refusing to have galvez replaced. Will start flomax 0.4mg qd monitor for effect continue urinary retention protocol q8hrs monitor for improvemen t and need to increase med. will scheduled f/u with urologist Gastroesop hageal reflux disease 989992298 K21.9 omeprazole 20 mg dailymonit or for sx relief Osteoarthritis 644143463 M15.0 APAP 650 mg y1gmqeemoo pain mgmt Dementia 55659398 F02.80 expect declinesup portive care Acute cystitis 77876368 N30.00 completed course of amoxicilli n 500 mg monitor for recurrence sx Essential hypertension 54508484 I10 atenolol 50 mg dailymonit or bp Paroxysmal atrial fibrillation 690769532 I48.0 warfarin to maintain INR 2.0-3.0ate nolol for rate controlmon itor [id number] Cole Pete MD [address] [address] [place] [address] 05/28/2019 10:52:01 06/01/2019 13:53:54 Gastroesophageal reflux disease 632635199 K21.9 omeprazole 20 mg qdmonitor for sx control Osteoarthritis 218401208 M15.0 baseline OAmonitor for sx reliefcurr ently stable at baseline Dementia 86506885 F02.80 baseline dementiain voke HCPcontinu e supportive caremonito r for behaviors Essential hypertension 44067302 I10 atenolol 50 mg dailywill monitor Paroxysmal atrial fibrillation 782426734 I48.0 atenolol 50 mg qdmonitor and adjust coumadinmo nitor for rate control Closed fra cture of acetabulum 78221594 S32.482D see HPIrecent acetabular fxfollow ortho recsmonito r pain controlthe rapy eval Retention of urine 11569 4002 R33.8 [address]vez in [address]urolo gy appt pending [id number] [address] 05/30/2019 09:03:51 06/01/2019 14:02:33 Closed fracture of acetabulum 42861140 S32.482D see HPIrecent acetabular fxfollow ortho recsmonito r pain controlPT/ OT to maximize function Pt with some limitation working with therapy due to cognition pt to remain NWB to left extremity until cleared by ortho Paroxysmal atrial fibrillation 811872125 I48.0 atenolol 50 mg qdmonitor and adjust coumadinmo nitor for rate control Gastroesop hageal reflux disease 443881195 K21.9 omeprazole 20 mg qdmonitor for sx control Retention of urine 91692 [address] has failed voiding trial while here urology appt today Osteoarthritis 610213501 M15.0 baseline OAmonitor for sx relief pt without pain presently Dementia 86933752 F02.80 baseline dementiaHC P invokedcon tinue supportive caremonito r for behaviors Essential hypertension 48696040 I10 stable atenolol 50 mg dailywill monitor [id number] [address] 05/31/2019 08:27:25 06/02/2019 10:26:59 Closed fracture of acetabulum 05736282 S32.482D see HPIrecent acetabular fxfollow ortho recsmonito r pain controlPT/ OT to maximize function Pt with some limitation working with therapy due to cognition pt to remain NWB to left extremity until cleared by ortho lidocain patch to left hip Retention of urine 52449 4002 R33.8 seen by urology yesterday, galvez was removed, will re-try voiding trail, start cipro x 5 day course, f/u in 3 weeks. Pt has been needing to get straight cathed almost every shift for elevated PVR, will call urology to get possible end date sooner than 3 weeks so to avoid excessive straight cathing. Add probiotic x7days. monitor Essential hypertension 77955185 I10 stable atenolol 50 mg dailywill monitor Low back pain 430948164 M54.5 unsure of chronicity as pt is poor historian apap for pain will order bengay as well start with PT/OT evaluation monitor Dry eyes 412551763 H04.1 29 pt having pain in the right eye with straining, relieved with rest. May benefit from eye drops. will add artificial tears bid x 10 days then tid prn monitor for relief [id number] Rama De Leon [facility] [address] [place] [address] 06/02/2019 10:05:59 06/03/2019 12:23:52 Physical deconditioning 4666604703 9102 R68.89 Believe these recurrent pains in [...] tid prn muscle spasm continue to monitor [id number] Rama De Leon [facility] [address] [place] [address] 06/06/2019 08:14:20 06/08/2019 16:37:52 Physical deconditioning 4861705172 9102 R68.89 is improving as he is working with PT/OT to maximize function baclofen 5mg tid prn - working with good effect continue to monitor Retention of urine 45459 4002 R33.8 completed cipro 5 day course continues with PVRs pt improving and not needing as much straight caths f/u with urology in 2 weeks monitor Closed fra cture of acetabulum 60206442 S32.482D see HPIrecent acetabular fxfollow ortho recsmonito r pain controlPT/ OT to maximize function Pt with some limitation working with therapy due to cognition pt to remain NWB to left extremity until cleared by ortho lidocain patch to left hip Essential hypertension 43526698 I10 stable atenolol 50 mg dailywill monitor [id number] Rama De Leon [address] [place] [address] 06/13/2019 10:17:38 06/15/2019 12:00:37 Physical deconditioning 9528336703 9102 R68.89 pt has been DCd from PT/OT for the time being as they have reached their limit with his NWB status and cognitive impairment , needing constant queing, occasional ly refusing. Pt has f/u with ortho on 06/15/19 baclofen 5mg tid prn - working with good effect continue to monitor Retention of urine 00229 4002 R33.8 completed cipro 5 day course pt improving and not needing straight caths- continues with PVRs until urology f/u on 06/16/19 monitor Closed fra cture of acetabulum 88431034 S32.482D see HPIrecent acetabular fxfollow ortho recsmonito r pain control pt to remain NWB to left extremity until cleared by ortho- f/u on 06/15/19 lidocain patch to left hip Essential hypertension 23714881 I10 stable atenolol 50 mg dailywill monitor [id number] Rama De Leon [address] [place] [address] 06/15/2019 10:49:10 06/17/2019 11:01:35 Physical deconditioning 0454000247 9102 R68.89 baclofen 5mg tid- will schedule for the next 4 weeks and then put back to prn - working with good effect. expect pt's muscle spasms to improve with improved mobility, seen by orth today with new weight bearing status, see above PT/OT to eval and treat continue to monitor Closed fra cture of acetabulum 00936765 S32.482D see HPIrecent acetabular fxPt seen by ortho today, to be PWB x2 weeks and then WBAT f/u with ortho prn PT/OT to eval and treat monitor pain control lidocain patch to left hip [id number] [address] 06/20/2019 06:58:36 06/23/2019 09:36:44 Closed fracture of acetabulum 33200939 S32.482D see HPIrecent acetabular fxPt seen by ortho last week, he is now PWB x2 weeks then WBAT f/u with ortho prn PT/OT to eval and treat monitor pain control lidocain patch to left hip Physical deconditioning 3351521637 9102 R68.89 baclofen 5mg tid scheduled for 4 weeks then to return back to prn. expect pt's muscle spasms to improve with improved mobility, see above PT/OT to eval and treat continue to monitor Retention of urine 69535 4002 R33.8 improved and pt not needing straight caths any longer. pt seen by urology on 06/16/19- orders to stop PVRs, continue flomax and f/u in 6 months. monitor Essential hypertension 34101452 I10 stable atenolol 50 mg dailywill monitor Paroxysmal atrial fibrillation 615213978 I48.0 atenolol 50 mg qdmonitor and adjust coumadinmo nitor for rate control Dementia 83716778 F02.80 baseline dementiaHC P invokedcon tinue supportive care expected decline monitor for behaviors Osteoarthritis 785392743 M15.0 baseline OAmonitor for sx relief pt without pain presently Gastroesop hageal reflux disease 829421953 K21.9 omeprazole 20 mg qdmonitor for sx control [id number] Rama De Leon [address] [place] [address] 06/24/2019 10:38:36 06/27/2019 15:14:12 Closed fracture of acetabulum 60169729 S32.482D see HPIrecent acetabular fxPt seen by ortho last week, he is now PWB x2 weeks then WBAT f/u with ortho prn PT/OT to eval and treat monitor pain control lidocain patch to left hip Physical deconditioning 6615597681 9102 R68.89 baclofen 5mg tid scheduled for 4 weeks then to return back to prn. expect pt's muscle spasms to improve with improved mobility, see above PT/OT to eval and treat- they are working with him for his back pain as well now PWB continue to monitor Essential hypertension 58947120 I10 stable atenolol 50 mg dailywill monitor Dementia 81910559 F02.80 baseline dementiaHC P invokedcon tinue supportive care expected decline monitor for behaviors psych eval as above Depressive disorder 3548 9007 F33.8 with poor appetite, pt noted to have weight loss. start mirtazapin e 7.5mg qd will order psych eval Osteoarthritis 073408205 M15.0 baseline OA pain appears managed monitor for sx relief [id number] [place] [address] 06/27/2019 11:34:53 06/29/2019 10:16:43 Depressive disorder 19096732 F33.8 with associated poor appetite, although he did want to lose weight upon coming to our facility. mirtazapin e 7.5mg qd started last week- unsure if this is helping awaiting psych eval will also order nutrition consult today monitor mood Closed fra cture of acetabulum 69298083 S32.482D see HPIrecent acetabular fxPt now PWB x2 more days then will be WBAT f/u with ortho prn PT/OT to eval and treat monitor pain control lidocain patch to left hip Physical deconditioning 7854975399 9102 R68.89 baclofen 5mg tid scheduled for 4 weeks then to return back to prn only. expect pt's muscle spasms to improve with improved mobility, see above PT/OT to eval and treat- they are working with him for his back pain as well now PWB continue to monitor Essential hypertension 35567861 I10 stable atenolol 50 mg dailywill monitor Dementia 37496267 F02.80 baseline dementiaHC P invokedcon tinue supportive care expected decline monitor for behaviors psych eval as above Chronic low back pain 27 1982632 M54.5 PT/OT eval and treat baclofen 5mg tid for 3 more weeks pt also has 5mg baclofen tid prn may try non-pharma cologic options if pt feels unrelieved monitor Fall 3469888 R29.6 PT/OT working with pt as above pt on baclofen scheduled tid will encourage fluids pt appears at his baseline mentation, although more depressed. will continue to monitor for now and monitor need to check a UA labs remain stable Recent weight loss 65711 7000 R63.4 pt had come in to our facility wanting to lose weight, and discussed this with the aircraft air conditioning mechanic. Pt's goal to be in the low 180s. He has lost some weight- he was in the 190s, now has dropped to 184.6 and has been stable. No concern for weight loss at this time. [id number] [address] 06/30/2019 14:27:58 07/04/2019 12:07:40 Closed fracture of acetabulum 75477056 S32.482D see HPIrecent acetabular fxPt now WBAT f/u with ortho prn PT/OT to eval and treat monitor pain control lidocain patch to left hip Essential hypertension 65699564 I10 stable atenolol 50 mg dailywill monitor Altered mental status 41 4263671 R41.82 episode yesterday, now resolved Anemia 928207046 D50.8 will order cbc, b12, iron studies for thursday. start collecting blood occult [place] [id number] [address] 07/05/2019 10:07:02 07/12/2019 15:36:35 Anemia 289453282 D50.8 h/h trending down slowly b12 and iron wnl. vit D slightly low, not likely the cause for drop in hgb. awaiting blood occult stools to be collected. will start vit D 1000u daily pt remains asymptomat ic will recheck cbc on Thursday Closed fra cture of acetabulum 58670224 S32.482D see HPIrecent acetabular fxPt now WBAT f/u with ortho prn PT/OT to eval and treat monitor pain control lidocain patch to left hip Essential hypertension 89052215 I10 stable atenolol 50 mg dailywill monitor Chronic low back pain 27 6314190 M54.5 PT/OT eval and treat baclofen 5mg [...] DC. awaiting psych eval monitor mood Dementia 20338557 F02.80 baseline dementiaHC P invokedcon tinue supportive care expected decline monitor for behaviors psych eval as above Paroxysmal atrial fibrillation 105599830 I48.0 atenolol 50 mg qdmonitor and adjust coumadin- pt's inr has been variable may consider switching to eliquis at f/u monitor for rate control [id number] [address] 07/08/2019 10:35:58 07/12/2019 16:17:21 Essential hypertension 36462759 I10 stable atenolol 50 mg dailywill monitor Gastroesop hageal reflux disease 549893111 K21.9 omeprazole 20 mg qd- Will DC this today, start trial ranitidine 150mg bid x 2 weeks then re-eval. avoid culprit foods monitor for sx control [address] [address] 07/11/2019 12:40:32 07/14/2019 13:34:20 Gastroesophageal reflux disease 178905241 K21.9 DCd omeprazole last week, now on ranitidine 150mg bid x 2 weeks - then to re-eval avoid culprit foods monitor for sx control Essential hypertension 92608214 I10 stable atenolol 50 mg dailywill monitor Anemia 650972588 D50.8 vit D 1000u daily pt remains asymptomat ic monitor cbc Closed fra cture of acetabulum 16830742 S32.482D see HPIrecent acetabular fxPt now WBAT f/u with ortho prn PT/OT to eval and treat monitor pain control lidocain patch to left hip Paroxysmal atrial fibrillation 366568490 I48.0 atenolol 50 mg qdmonitor and adjust coumadin monitor for rate control Chronic low back pain 27 5477257 M54.5 PT/OT eval and treat baclofen 5mg tid-will DC this today. ?may be having effect on pt's alertness. pt will continue with 5mg baclofen tid prn may try non-pharma cologic options if pt's pain feels unmanaged monitor Dementia 62775611 F02.80 appears to have some increased confusion today, see above HCP invokedcon tinue supportive care expected decline monitor for behaviors being followed by med [facility] Altered mental status 41 7719230 R41.82 had episode of hallucinat ions on 07/09 pt appears to have mild lethargy and increased confusion today, will order UA&CS monitor [address] [place] [address] 07/12/2019 08:10:01 07/14/2019 13:49:45 Altered mental status 293046899 R41.82 had episode of hallucinat ions on 07/09, noted to have some increased confusion/ lethargy awaiting UA&CS monitor Dementia 59403510 F02.80 HCP invokedcon tinue supportive care expected decline monitor for behaviors being followed by [facility] Gastroesop hageal reflux disease 638695887 K21.9 doing well on ranitidine 150 mg bid so far avoid culprit foods monitor for sx control Paroxysmal atrial fibrillation 316135227 I48.0 atenolol 50 mg qdmonitor and adjust coumadin monitor for rate control Essential hypertension 02838060 I10 stable atenolol 50 mg dailywill monitor Anemia 253250908 D50.8 vit D 1000u daily pt remains asymptomat ic monitor cbc Closed fra cture of acetabulum 45351135 S32.482D see HPIrecent acetabular fxPt now WBAT f/u with ortho prn PT/OT to eval and treat monitor pain control lidocain patch to left hip Chronic low back pain 27 1396868 M54.5 PT/OT eval and treat baclofen 5mg tid prn may try non-pharma cologic options if pt's pain feels unmanaged monitor Depressive disorder 3548 9007 F33.8 mirtazapin e 15mg qd now with improved appetite depression appears somewhat improved- pt also has expected discharge date on that he is looking forward to. f/u psych prn monitor mood [address]83 Rama [address] [place] [address] [place] [address] 07/14/2019 10:20:48 07/20/2019 13:12:40 Depressive disorder 49782463 F33.8 mirtazapin e 15mg qd now with improved appetite depression appears somewhat improved- pt looking forward to going home. f/u outpt Altered mental status 41 1125708 R41.82 had episode of hallucinat ions on 07/09, noted to have some increased confusion/ lethargy. preliminar y UA showing heavy bacteria, awaiting CS report, will notify pt and send script if needed. Last UTI in acute care tx with amoxicilli n. f/u outpt Dementia 21601769 F02.80 HCP invokedcon tinue supportive care expected decline Gastroesop hageal reflux disease 913816301 K21.9 doing well on ranitidine 150 mg bid f/u outpt Paroxysmal atrial fibrillation 227846367 I48.0 atenolol 50 mg qdcoumadin Patient will be on 5.5mg coumadin tonight and tomorrow night, to get PT/INR rechecked on 07.16.19 as outpt Essential hypertension 96975065 I10 stable atenolol 50 mg dailyf/u outpt Anemia 025294333 D50.8 mild vit D 1000u daily pt asymptomat ic f/u outpt Closed fra cture of acetabulum 44840149 S32.482D see HPIrecent acetabular fxPt WBAT lidocaine patch baclofen tid prn f/u with ortho prn outpt PT/OT outpt Chronic low back pain 27 5385776 M54.5 PT/OT eval and treat baclofen 5mg tid prn f/u outpt Osteoarthritis 011184910 M15.0 baseline OA f/u outpt Retention of urine 55841 4002 R33.8 pt seen by urology on 06/16/19- orders to stop PVRs, continue flomax and f/u in 6 months as outpt [id number] MD EVI Melgar SINA [address] [facility] [place] [address] 07/27/2019 13:00:00 08/05/2019 14:59:42 Teardrop fracture of cervical vertebra 620930298 S12.590D see HPIfollow neurosurge ry recsAspen collar in placePT OT Eval and treatmonit or for pain control Fracture o f scapular body 58125817 S42.112G recent left scapular fxNWB till cleared by orthosee above Closed fra cture of acetabulum 30515778 S32.482D see HPIrecent acetabular fxfollow ortho recsmonito r pain controlthe rapy evalis able to ambulate Unsteady gait 906571135 R26.81 recent recurrent falls with fracturese e abovemonit or need to transition to LTC Paroxysmal atrial fibrillation 104919735 I48.0 atenolol 50 mg qdmonitor and adjust coumadinmo nitor for rate controlcon tinue to assess risk vs benefit in patient with recurrent fallsactiv beto maintained on coumadin from hospital discharge Essential hypertension 47183912 I10 atenolol 50 mg dailymonit or bpadjust prn Retention of urine 55481 4002 R33.8 flomax 0.4 mg qdto f/u with urology Gastroesop hageal reflux disease without esophagitis 259550794 K21.9 ranitidine 150 mg bidmonitor for sx control 37777 Rama STEVE SINA [address] [facility] [place] [address] 08/01/2019 09:33:43 08/04/2019 16:10:30 Teardrop fracture of cervical vertebra 652292060 S12.590D see HPIfollow neurosurge ry recsAspen collar in placePT OT Eval and treatmonit or for pain control Fracture o f scapular body 37923296 S42.112G recent left scapular fxNWB till cleared by orthosee above Closed fra cture of acetabulum 09711781 S32.482D see HPIrecent acetabular fxfollow ortho recsmonito r pain controlthe rapy evalis able to ambulate Unsteady gait 842906005 R26.81 recent recurrent falls with fracturese e abovemonit or need to transition to LTC Paroxysmal atrial fibrillation 367870870 I48.0 atenolol 50 mg qdmonitor and adjust coumadinmo nitor for rate controlcon tinue to assess risk vs benefit in patient with recurrent fallsactiv beto maintained on coumadin from hospital discharge Essential hypertension 14168002 I10 stable atenolol 50 mg dailymonit or bpadjust prn Retention of urine 85336 4002 R33.8 flomax 0.4 mg qdto f/u with urology Gastroesop hageal reflux disease without esophagitis 498120507 K21.9 ranitidine 150 mg bid- will DC and change to omeprazole - pt without longstandi ng hx of gerd and being on omeprazole in the past with good effect. monitor for sx control Leukocytosis 467366925 D 72.828 see HPI cxr showing patchy right lung opacities, may require f/u xray if no improvemen t awaiting UA to be collected blood cultures taken repeat labs tomorrow Pt stable presently, VSS, afebrile monitor 15880 Rama ANDINO [address] [place] [address] 08/02/2019 07:20:26 08/10/2019 11:48:28 Leukocytosis 365772325 D72.828 see HPI appears to be improving. cxr showing patchy right lung opacities, may require f/u xray if no improvemen t. awaiting UA to be collected blood cultures Pt stable presently, VSS, afebrile monitor Teardrop f racture of cervical vertebra 157677552 S12.590D see HPIfollow neurosurge ry recsAspen collar in placePT OT Eval and treat oxy 5mg q6h prn monitor for pain control Fracture o f scapular body 29923907 S42.112G recent left scapular fxNWB till cleared by orthosee above Closed fra cture of acetabulum 32082390 S32.482D see HPIrecent acetabular fxfollow ortho recsmonito r pain controlthe rapy evalis able to ambulate Unsteady gait 782694159 R26.81 recent recurrent falls with fracturese e abovemonit or need to transition to LTC Paroxysmal atrial fibrillation 019288603 I48.0 atenolol 50 mg qdmonitor and adjust coumadinmo nitor for rate controlcon tinue to assess risk vs benefit in patient with recurrent fallsactiv beto maintained on coumadin from hospital discharge Essential hypertension 81475835 I10 stable atenolol 50 mg dailymonit or bpadjust prn Gastroesop hageal reflux disease without esophagitis 112312143 K21.9 omeprazole 20mg qd- recently started. Pt denies any gerd sx today. monitor for sx control Retention of urine 88112 4002 R33.8 flomax 0.4 mg qdto f/u with urology 15566 MD EVI Melgar [address] [facility] [place] [address] 08/03/2019 14:23:45 08/10/2019 12:08:12 Acute cystitis 98016419 N30.00 bactrim DS bid x 5 daysprobio tic bid x 10 daysmonito r to resolution 63341 Rama ANDINO [address] [facility] [address] 08/09/2019 09:39:58 08/16/2019 10:05:19 Acute cystitis 29873590 N30.00 completed bactrim DS bid x 5 day coursecont inue on probiotic WBC count back wnl monitor for sx recurrence Teardrop f racture of cervical vertebra 446302835 S12.590D see HPIfollow neurosurge ry recsAspen collar in placePT OT Eval and treat oxy 5mg q6h prn monitor for pain control Fracture o f scapular body 48719051 S42.112G recent left scapular fxNWB till cleared by ortho- has f/u on 08/25/19se e above Closed fra cture of acetabulum 24637344 S32.482D see HPIrecent acetabular fxfollow ortho recsmonito r pain controlthe rapy evalis able to ambulate Unsteady gait 440728247 R26.81 recent recurrent falls with fracturese e abovemonit or need to transition to LTC Paroxysmal atrial fibrillation 424035191 I48.0 atenolol 50 mg qdmonitor and adjust coumadinmo nitor for rate controlcon tinue to assess risk vs benefit in patient with recurrent fallsactiv beto maintained on coumadin from hospital discharge Essential hypertension 14183706 I10 stable atenolol 50 mg dailymonit or bpadjust prn Gastroesop hageal reflux disease without esophagitis 822234600 K21.9 stable on omeprazole 20mg qd monitor for sx control Retention of urine 29923 4002 R33.8 flomax 0.4 mg qdto f/[place]n 01469 Rama STEVE SINA [address] [facility] [place] [address] 08/15/2019 08:42:28 08/18/2019 15:24:41 Acute cystitis 29265154 N30.00 completed bactrim DS bid x 5 day course WBC count back wnl monitor for sx recurrence Teardrop f racture of cervical vertebra 230144835 S12.590D see HPIfollow neurosurge ry recsAspen collar in placePT OT Eval and treat oxy 5mg q6h prn monitor for pain control Fracture o f scapular body 65945852 S42.112G recent left scapular fxNWB till cleared by ortho- has f/u on 08/25/19se e above Closed fra cture of acetabulum 45836452 S32.482D see HPIrecent acetabular fxfollow ortho recsmonito r pain controlthe mark norris able to ambulate Unsteady gait 091395055 R26.81 recent recurrent falls with fracturese e abovemonit or need to transition to LTC Paroxysmal atrial fibrillation 190998887 I48.0 atenolol 50 mg qdmonitor and adjust coumadinmo nitor for rate controlcon tinue to assess risk vs benefit in patient with recurrent fallsactiv beto maintained on coumadin from hospital discharge Essential hypertension 57883745 I10 stable atenolol 50 mg dailymonit or bpadjust prn Gastroesop hageal reflux disease without esophagitis 794534365 K21.9 stable on omeprazole 20mg qd monitor for sx control Retention of urine 05972 4002 R33.8 flomax 0.4 mg qdto f/[place] 22190 Rama STEVE SINA [address] [facility] [place] [address] 08/18/2019 08:56:52 08/29/2019 14:10:07 Teardrop fracture of cervical vertebra 855888263 S12.590D see HPIfollow neurosurge ry recsAspen collar in placePT OT Eval and treat oxy 5mg q6h prn monitor for pain control Fracture o f scapular body 29418198 S42.112G recent left scapular fx seen by ortho on 08/03/19 now WBAT to the LUE sling only for comfort otherwise may DC ortho f/u in 6-8weeks PT/OT to maximize function monitor for pain control see above Closed fra cture of acetabulum 62703842 S32.482D WBAT f/u with ortho on 08/25/19 PT/OT to maximize function monitor for pain control follow ortho recs Unsteady gait 488646348 R26.81 recent recurrent falls with fracturese e abovemonit or need to transition to LTC Paroxysmal atrial fibrillation 943204653 I48.0 atenolol 50 mg qdmonitor and adjust coumadinmo nitor for rate controlcon tinue to assess risk vs benefit in patient with recurrent fallsactiv beto maintained on coumadin from hospital discharge Essential hypertension 78105098 I10 stable atenolol 50 mg dailymonit or bpadjust prn Gastroesop hageal reflux disease without esophagitis 709477002 K21.9 stable on omeprazole 20mg qd monitor for sx control Retention of urine 66428 4002 R33.8 flomax 0.4 mg qdto f/[place]n 90807 Rama STEVE SINA [address] [place] [address] 08/19/2019 08:20:53 08/29/2019 14:38:07 Teardrop fracture of cervical vertebra 300382700 S12.590D see HPIfollow neurosurge ry recsAspen collar in placePT OT Eval and treat oxy 5mg q6h prn monitor for pain control Fracture o f scapular body 55746967 S42.112G recent left scapular fx seen by ortho on 08/03/19 now WBAT to the LUE sling only for comfort otherwise may DC ortho f/u in 6-8weeks PT/OT to maximize function monitor for pain control see above Closed fra cture of acetabulum 10660948 S32.482D WBAT f/u with ortho on 08/25/19 PT/OT to maximize function monitor for pain control follow ortho recs Unsteady gait 933148333 R26.81 recent recurrent falls with fracturese e abovemonit or need to transition to LTC Essential hypertension 82750495 I10 stable atenolol 50 mg dailymonit or bpadjust prn Impaired cognition 87130 6002 R41.89 Pt agitated today due to frustratio ns about not being home. SLUMS completed today pt contineus to have cognition that waxes and wanes, continues to be barrier when working with therapy. Pt's agitation improved with talking with him about his physical health status and what his goal [place] [address] [address] [place] [address] [place] [address] 08/26/2019 08:35:13 09/02/2019 13:44:23 Impaired cognition 972643050 R41.89 Pt contineus to have cognition that waxes and wanes, continues to be barrier when working with therapy, however he is improving slowly. monitor mood psych eval prn Teardrop f racture of cervical vertebra 637674679 S12.590D see HPIfollow neurosurge ry recsAspen collar in placePT OT Eval and treat oxy 5mg q6h prn f/u with ortho on 08/25/19- awaiting notes. in report from staff to continue with aspen collar and working with PT. monitor for pain control Fracture o f scapular body 31657981 S42.112G recent left scapular fx seen by ortho on 08/03/19 now WBAT to the LUE sling only for comfort otherwise may DC ortho f/u in 6-8weeks PT/OT to maximize function monitor for pain control see above Closed fra cture of acetabulum 47842174 S32.482D WBAT f/u with ortho PT/OT to maximize function monitor for pain control follow ortho recs Unsteady gait 323162057 R26.81 recurrent falls with fracturese e abovemonit or need to transition to LTC Essential hypertension 10554818 I10 stable atenolol 50 mg dailymonit or bpadjust prn Paroxysmal atrial fibrillation 567861422 I48.0 atenolol 50 mg qdmonitor and adjust coumadinmo nitor for rate controlcon tinue to assess risk vs benefit in patient with recurrent fallsactiv beto maintained on coumadin from hospital discharge Gastroesop hageal reflux disease without esophagitis 577860434 K21.9 stable on omeprazole 20mg qd monitor for sx control Retention of urine 89316 4002 R33.8 flomax 0.4 mg qdto [place] [address] Rama [address] [place] [address] [place] [address] 08/29/2019 07:47:19 09/02/2019 14:44:29 Impaired cognition 107690749 R41.89 Pt has continued to have cognition that waxes and wanes, which was a barrier when working with therapy, however he has improved slowly. f/u outpt Teardrop f racture of cervical vertebra 772660094 S12.590D see HPIfollow neurosurge ry recsAspen collar in placePT OT Eval and treat oxy 5mg q6h prn f/u with ortho as outpt Fracture o f scapular body 59465819 S42.112G recent left scapular fx seen by ortho on 08/03/19 now WBAT to the LUE sling only for comfort otherwise may DC ortho f/u in 6-8 weeks as outpt Closed fra cture of acetabulum 44389573 S32.482D WBAT f/u with ortho outpt Unsteady gait 634418357 R26.81 recurrent falls with fracturePT /OT as outpt Essential hypertension 84255792 I10 stable atenolol 50 mg dailyf/u outpt Paroxysmal atrial fibrillation 153038184 I48.0 atenolol 50 mg qdassess risk vs benefit in patient with recurrent fallsactiv beto maintained on coumadin- to f/u as outpt Gastroesop hageal reflux disease without esophagitis 539174141 K21.9 stable on omeprazole 20mg qd f/u outpt Retention of urine 72896 4002 R33.8 flomax 0.4 mg qdto f/u with urology prn outpt 100249 Cole Pete MD [facility] [address] [place] [address] 11/03/2022 13:48:27 11/05/2022 14:58:55 Herpes zoster ophthalmicus 80512451 B02.39 see HPIcomplet e valtrexoph th eval prn Community acquired pneumonia 764185182 J15.8 complete Ab courseadd probioticm onitor respirator y status Compressio n fracture of lumbar spine 076409857 M48.56XD L3 comp fxmonitor for pain control Impaired cognition 36283 6002 R41.89 unsure of baselinequ estion underlying dementiain voke HCPdiscuss ed with papa recheck UAin past patient confused with infection then clears after treatmentH CP goal is LTCexplain ed to HCP that if patient clears and has insight he will make his own decisions Unsteady gait 816811797 R26.81 recurrent falls with fracturese e abovemonit or need to transition to LTC Paroxysmal atrial fibrillation 988543418 I48.0 xarelto 20 mg qdmonitor for rate control and risk vs benefit in patient with recurrent falls Essential hypertension 28048906 I10 carrying dxmonitor bp and need for medication Retention of urine 35709 4002 R33.8 added to PMH with recurrent UTIsurolog y eval prn Gastroesop hageal reflux disease without esophagitis 002079780 K21.9 monitor for sx control not on PPI [id number] HEIDY RDZ PA-C [facility] [address] [address] 11/13/2022 12:29:41 12/02/2022 12:57:04 Chronic pain 00784654 G89.29 Tramadol, APAPPT/OT 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 d/c Valtrex - was only supposed to be for 5 days Coronary arteriosclerosis 07249441 I25.10 Plavix, Xareltoris ks of statin therapy outweigh benefits in this patient Recurrent falls 09922136 2 R29.6 MARROQUIN completedP T/OT 692662 HEIDY RDZ PA-C [facility] [address] [address] 11/21/2022 16:39:25 12/02/2022 14:15:12 Altered mental status 766820067 R41.82 obtain results of U/A-if was not done, re-collect spec in order to determine if colonized or infected 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 0127734158 5359106 F01.50 SLUMS completedc onsider psych consult [id number] HEIDY RDZ PA-C [facility] [address] [address] 11/28/2022 16:31:23 12/02/2022 15:26:26 Bacterial conjunctivitis 098934127 H10.022 Ilotycin each eye qid x 5 daysf/u prn Coronary arteriosclerosis 63174549 I25.10 Plavix, Xareltoris ks of statin therapy outweigh benefits in this patient Gastroesop hageal reflux disease without esophagitis 671180842 K21.9 on scheduled TUMSf/u prn [id number] HEIDY RDZ PA-C [facility] [address] [address] 12/02/2022 11:13:30 12/04/2022 13:04:56 Acute urinary tract infection 592610194 N39.0 Increased WBCs from prior U/A; could [...] resultedPr obiotic bid x 10 daysFollow clinically [id number] STEPHANIE MYLES NP [facility] [address] [address] 12/18/2022 08:14:34 12/23/2022 11:35:45 Acute urinary tract infection 181151132 N39.0 Augmentin 875/125 mg po bid x 7 days completed. Follow clinically Compressio n fracture of lumbar spine 330471555 M48.56XD L3 comp fxmonitor for pain controlsch eduled tramadol changed from TID to every 6 hours four times a day, monitor and hold for effectiven ess and oversedati on Depressive disorder 1448 9007 F33.8 Verbalized to staff about wanting to harm himselfDen ies during my visit todayWill update SS and psych to continue to follow and provide supportive careMonito r closely - will add trazodone 25 mg bid prn x 14 days, then re-eval, per psychiatry physician recommenda tions Coronary arteriosclerosis 67183656 I25.10 VSSNo CP concernsOn minimal medsContin ue plavix Essential hypertension 09619074 I10 VSS, not on meds at this time except for terazosin, suspect also used for urinary retentionB PH Paroxysmal atrial fibrillation 682608181 I48.0 Not on meds for rate controlCon tinue xarelto 20 mg daily for ACMonitor VS/CP status Retention of urine 43685 4002 R33.8 Continue terazosin, monitor urinary status 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 recheck of viral load as not continued on Valtrex. 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 trazodone 25 mg bid prnwill monitor Compressio n fracture of lumbar spine 900484389 M48.56XD tramadol 50mg q6h prnAPAP 650 mg q4h prnPT/OT prn Coronary arteriosclerosis 71194113 I25.10 clopidogre l 75 mg dailywill monitor Paroxysmal atrial fibrillation 773412191 I48.0 rivaroxaba n 20 mg dailywill monitor Benign pro static hyperplasia without outflow obstruction 563147034 N40.0 terazosin 223360 STEPHANIE MYLES NP [facility] [address] 12/29/2022 12:28:01 01/07/2023 08:21:35 Dementia 38858968 F02.80 expect declinetra zodone added prn, used once so far.Monito r mood, behaviors Essential hypertension 33780576 I10 On terazosin 5 mg daily, suspect this is more for urinary retentionC ontinue to dose q eveningNo med changes at this timeBPs overall look good.monit or Gastroesop hageal reflux disease without esophagitis 665196166 K21.9 omeprazole 40 mg dailywill monitor Mixed anxi ety and depressive disorder 370404420 F41.8 trazodone 25 mg bid prnwill monitor Compressio n fracture of lumbar spine 874908491 M48.56XD tramadol 50mg q6h sched - will start to taper off - reduce by 1 dose daily each week - reduce to TID in amAPAP 650 mg q4h prnPT/OT prn Coronary arteriosclerosis 86855988 I25.10 clopidogre l 75 mg dailyhigh fall riskmonito r CP status Paroxysmal atrial fibrillation 025156177 I48.0 rivaroxaba n 20 mg daily - may consider stopping due to frequent falls, risk>benef itwill monitor closely Benign pro static hyperplasia without outflow obstruction 991725644 N40.0 terazosin as above Recurrent falls 80734264 2 R29.6 fall in room x 1 today, fell onto kneesPT OT eval prnMonitor VS, neuros for changeCBC, CMP x 1 in am [id number] LINCOLN [place] [address] [address] 01/13/2023 13:01:58 01/19/2023 12:20:59 Dementia 11617426 F02.80 expect declinesup portive caresee psych meds below Essential hypertension 88251939 I10 bp normaltera zosin 5 mg qhsmonitor bp and adjust med prn Gastroesop hageal reflux disease without esophagitis 799983904 K21.9 omeprazole 40 mg qdmonitor for sxs Mixed anxi ety and depressive disorder 367269295 F41.8 trazodone 25 mg bid prnmonitor moodpsych prn Compressio n fracture of lumbar spine 766881834 M48.56XD tramadol 50mg tid till 5/24/23APA P 1000 mg tidPT/OT prn Coronary arteriosclerosis 50622238 I25.10 clopidogre l 75 mg qdmonitor for chest pain, sob Paroxysmal atrial fibrillation 489191039 I48.0 rivaroxaba n 20 mg qdmonitor for bleeding Benign pro static hyperplasia without outflow obstruction 327859204 N40.0 terazosin 5 mg q pmmonitor for retention [id number] Santa Miller MD [facility] [address] [address] 01/14/2023 10:55:10 01/18/2023 08:45:08 Chronic pain 19871302 G89.29 discussed with nursing staffRx given and new order placed for tramadol 50 mg [id number] continue to monitor [id number] STEPHANIE MYLES NP [facility] [address] [address] 02/09/2023 13:53:54 02/12/2023 16:18:19 Essential hypertension 83506442 I10 On terazosin 5 mg daily, suspect this is more for urinary retentionC ontinue to dose q eveningNo med changes at this timeBPs overall look good.monit or Dementia 14791695 F02.80 expect declinetra zodone added prn, used once so far.Monito r mood, behaviors Paroxysmal atrial fibrillation [id number] I48.0 With RVR during this hosp.Given IV meds, converted back to NSR with frequent PACs.Metop rolol 25 mg q 8 hrs started, hold for SBP<90, P<60.Keith nue rivaroxaba n 20 mg dailyMonit or VS, CP status, adjust tx. prnCBC, CMP x 1 02/23 Benign pro static hyperplasia without outflow obstruction 090286066 N40.0 terazosin as above Gastroesop hageal reflux disease without esophagitis 070774784 K21.9 omeprazole 40 mg dailywill monitor Mixed anxi ety and depressive disorder 437520634 F41.8 monitor mood and behaviors Compressio n fracture of lumbar spine 881722206 M48.56XD tramadol 50mg tid - consider taper in futureAPAP 1000 mg tidPT/OT prn Coronary arteriosclerosis 02283044 I25.10 Already on clopidogre l 75 mg dailyNow also on metoprolol and atorvastat in as aboveMonit or VS, CP statusUpda te Cards with concernsmo nitor CP status Acute non- ST segment elevation myocardial infarction 566964175 I21.4 See by CardsNow on metoprolol 25 mg q 8 hrs and atorvastat in 40 mg dailyConti nue plavix 75 mg dailyCMP in 8 wks due to start of statin (05/14)Lucretia tor VS, CP statusUpda te Cards with concernsla bs 02/23 Urinary tr act infectious disease 86969587 N39.0 E. ColiTreate d with rocephin in hosp., now on 3 days of cefuroxime 250 mg bis x 3 days.Monit or VS, sx. Altered mental status 41 5321886 R41.82 Improved with tx. of UTI, MT, AF RVR.Monito r Dysphagia 31248717 R13.1 0 Diet downgraded to puree with thins in hosp.Refer to [facility] for continued tx. and eval., hopeful to upgrade diet consistenc y [id number] BRAXTON KHAN, HELIC[employer]TER REPA[employer] [facility] [address] [address] 02/11/2023 11:47:11 02/13/2023 09:29:43 Paroxysmal atrial fibrillation 774070617 I48.0 HR 76Metoprol ol 25 mg q 8 hrs started, hold for SBP<90, P<60.rivar oxaban 20 mg dailymonit or for abn bruising/b leedingMon itor VS, CP status, adjust tx. prnmonitor labs Acute non- ST segment elevation myocardial infarction 537790728 I21.4 metoprolol 25 mg q 8 hrsatorvas tatin 40 mg dailyplavi x 75 mg dailyCMP in 8 wks due to start of statin (05/14)Lucretia tor VS, CP statusfoll ow up with cards prnlabs 02/23 Urinary tr act infectious disease 47651736 N39.0 E. Coli tx with rocephin and cefuroxime abx therapy completedM onitor for sx changes/VS Altered mental status 41 6714993 R41.82 resolved Dysphagia 35075822 R13.1 0 Diet downgraded to puree with thins in hosp.Refer to [facility] for continued tx. and eval., hopeful to upgrade diet consistenc y Essential hypertension 59572232 I10 126/68On terazosin 5 mg daily, suspect this is more for urinary retentionC ontinue to dose q eveningNo med changes at this timeBPs overall look good.monit or Dementia 83251547 F02.80 02/11 tried to kiss nurseexpec t declinetra zodone added prn, used once so far.Monito r mood, behaviorsc onsider psych eval if inappropri ate behavior continue Benign pro static hyperplasia without outflow obstruction 733710498 N40.0 terazosin as above Gastroesop hageal reflux disease without esophagitis 456116100 K21.9 omeprazole 40 mg dailywill monitor 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 monitor mood and behaviors Compressio n fracture of lumbar spine 292727565 M48.56XD tramadol 50mg tid - consider taper in futureAPAP 1000 mg tidPT/OT prn Coronary arteriosclerosis 57017250 I25.10 Already on clopidogre l 75 mg dailyon metoprolol and atorvastat in as aboveMonit or VS, CP statusUpda te Cards with concernsmo nitor CP status [id number] LIAN [facility] [address] [address] 02/13/2023 11:51:57 02/17/2023 09:54:36 Diverticulitis 643299990 K57.92 stopping colace at this timepatien t will let us know if he becomes constipate dno active GI issues noted today [id number] STEPHANIE MYLES NP [facility] [address] [address] 02/16/2023 14:55:34 02/18/2023 08:22:56 Paroxysmal atrial fibrillation 479318193 I48.0 With RVR during most recent hosp.Given [...] Acute non- ST segment elevation myocardial infarction 126123220 I21.4 See by CardsNow on metoprolol 25 mg q 8 hrs and atorvastat in 40 mg dailyDue to low pulse today, reduce metoprolol to 25 mg bid, same parameters Continue plavix 75 mg dailyCMP in 8 wks due to start of statin (05/14)Lucretia tor VS, CP statusUpda te Cards with concernsla bs 02/18 and 02/23 Urinary tr act infectious disease 96062381 N39.0 E. ColiTreate d with rocephin in hosp., completed 3 days of cefuroxime 250 mg bidMonitor VS, sx. Altered mental status 41 5685525 R41.82 Improved with tx. of UTI, MT, AF RVR.Monito r Dysphagia 45777493 R13.1 0 Diet downgraded to puree with thins in hosp.Refer to [facility] for continued tx. and eval., hopeful to upgrade diet consistenc y Essential hypertension 74272351 I10 On terazosin 5 mg daily, suspect this is more for urinary retentionM etoprolol added in hosp - reducing dose to 25 mg bid due to low pulse.Lucretia tor VS, continue to adjust meds prn Dementia 40161627 F02.80 expect declineMon itor mood, behaviors for changePsyc h eval prn Benign pro static hyperplasia without outflow obstruction 433496550 N40.0 terazosin as above Gastroesop hageal reflux disease without esophagitis 757568000 K21.9 omeprazole 40 mg dailywill monitor Mixed anxi ety and depressive disorder 136222109 F41.8 monitor mood and behaviors Compressio n fracture of lumbar spine 109418787 M48.56XD On tramadol 50mg tid - pain 120% better - will educe to 50 mg bid, monitor pain and continue to reduce as able.APAP 1000 mg tidPT/OT prn Coronary arteriosclerosis 37704929 I25.10 Already on clopidogre l 75 mg dailyNow also on metoprolol and atorvastat in as aboveMonit or VS, CP statusUpda te Cards with concernsmo nitor CP status [id number] STEPHANIE MYLES NP [facility] [address] [address] 02/18/2023 15:44:12 2023 11:40:14 Paroxysmal atrial fibrillation 430375580 I48.0 With RVR during most recent hosp.Given [...] Acute non- ST segment elevation myocardial infarction 008176698 I21.4 See by CardsNow on metoprolol 25 mg (reduced earlier in the week from q 8 hrs to q 12 hrs due to low pulse) and atorvastat in 40 mg dailyConti nue plavix 75 mg dailyCMP in 8 wks due to start of statin (05/14)Lucretia tor VS, CP statusUpda te Cards with concernsla bs as above. Urinary tr act infectious disease 05715698 N39.0 E. ColiTreate d with rocephin in hosp., completed 3 days of cefuroxime 250 mg bidCurrent ly with urinary frequency, but also hx. of BPH/retent ion, on terazosin. Monitor VS, sx., repeat UA C&S to assure resolution of UTI Altered mental status 41 7461270 R41.82 Improved with tx. of UTI, MT, AF RVR.Monito r Dysphagia 91229919 R13.1 0 Diet downgraded to puree with thins in hosp.Refer red to [facility] for continued tx. and eval., hopeful to upgrade diet consistenc y Essential hypertension 45049299 I10 On terazosin 5 mg daily, suspect this is more for urinary retentionM etoprolol added in hosp - reduced dose to 25 mg bid due to low pulse.Lucretia tor VS, continue to adjust meds prn Dementia 06838851 F02.80 expect declineMon itor mood, behaviors for changePsyc h eval prn Benign pro static hyperplasia without outflow obstruction 860833850 N40.0 terazosin as abovec/o urinary frequency, recent UTI, will repeat UA C&S, assure resolution of UTI.Labs stable. Gastroesop hageal reflux disease without esophagitis 944850367 K21.9 omeprazole 40 mg dailywill monitor Mixed anxi ety and depressive disorder 579126697 F41.8 monitor mood and behaviors Compressio n fracture of lumbar spine 203264623 M48.56XD On tramadol 50mg bid - just reduced from tid as pain improved. - monitor pain and continue to reduce as able.APAP 1000 mg tidPT/OT prn Coronary arteriosclerosis 67764376 I25.10 Already on clopidogre l 75 mg dailyNow also on metoprolol and atorvastat in as aboveMonit or VS, CP statusUpda te Cards with concernsmo nitor CP status Anemia 570579844 D64.9 Hgb 10.3 -> 9.1, normocytic No s/s active bleedingOn plavix and xareltoRep eat CBC thursdayHeme test stools x 3Monitor [id number] LINCOLN [place] [address] [address] 02/24/2023 10:26:55 02/26/2023 10:22:42 Paroxysmal atrial fibrillation 050776240 I48.0 With RVR during most recent hosp, [...] Acute non- ST segment elevation myocardial infarction 945996433 I21.4 metoprolol 25 mg bid as aboveatorv astatin 40 mg qdplavix 75 mg qdCMP on 05/14/23 due to start of statinMoni tor for chest pain, sobf/u with cards Urinary tr act infectious disease 09850567 N39.0 E. ColiTreate d with rocephin in hosp., completed 3 days of cefuroxime 250 mg bidUA on 02/19/23 appears negative for infectionm onitor Anemia 475113339 D64.9 Hgb 10.3 -> 9.5, improvingN o s/s active bleedingOn plavix and xareltoNur se not aware if Hemetest stools x 3 has been done but she will look into itMonitor Dysphagia 14415696 R13.1 0 Diet downgraded to puree with thin liquids in hospitalRe ferred to [facility] continued tx. and eval Essential hypertension 65917521 I10 terazosin 5 mg qd (suspect this is more for urinary retention) Metoprolol 25 mg bidMonitor BP/HR qd and adjust meds prn Dementia 96521644 F02.80 expect declinesup portive careMonito r mood, behaviors for changePsyc h eval prn Benign pro static hyperplasia without outflow obstruction 520443713 N40.0 terazosin 5 mg qdLabs stable. Gastroesop hageal reflux disease without esophagitis 962351294 K21.9 omeprazole 40 mg qdmonitor for sxs Compressio n fracture of lumbar spine 670230666 M48.56XD tramadol 50mg bidmonitor pain and continue to reduce as able.APAP 1000 mg tidcontinu e PT/OT [id number] Santa Miller MD [facility] [address] [address] 02/27/2023 07:48:36 03/12/2023 15:55:15 Acute non-ST segment elevation myocardial infarction 301069493 I21.4 metoprolol 25 mg bidclopido grel 75 mg dailyatorv astatin 40 mg dailywill monitor Paroxysmal atrial fibrillation 723381843 I48.0 rivaroxaba n 20 mg dailymetop rolol 25 mg bidwill monitor Gastroesop hageal reflux disease without esophagitis 292827035 K21.9 omeprazole 40 mg dailywill monitor Chronic pain 75044491 G8 9.29 APAP 1000 mg tidtramado l 50 mg bidPT/OT prnwill continue to monitor Benign pro static hyperplasia without outflow obstruction 878715181 N40.0 terazosin 5 mg at hswill monitor Acute cystitis 52635348 N30.00 antibiotic s completedw ill monitor [id number] STEPHANIE MYLES NP [facility] [address] [place] [address] 03/02/2023 12:52:54 03/12/2023 16:19:54 Paroxysmal atrial fibrillation 777080880 I48.0 With RVR during most recent hosp, given IV meds, converted back to NSR with frequent PACsMetopr olol 25 mg q 8 hrs started, reduced to bid on 02/16/23 for low pulse, hold for SBP<90, P<60Contin ue rivaroxaba n 20 mg qd foe ACChecking BP/HR qd x 2 weeksMonit or VS, labs, rate control, bleeding Acute non- ST segment elevation myocardial infarction 105340487 I21.4 metoprolol 25 mg bid as aboveatorv astatin 40 mg qdplavix 75 mg qdCMP on 05/14/23 due to start of statinMoni tor for chest pain, sobf/u with cards Anemia 751242230 D64.9 Hgb 10.3 -> 9.5No s/s active bleedingOn plavix and xareltoNur se not aware if Hemetest stools x 3 has been done but she will look into itMonitor Dysphagia 55427069 R13.1 0 Diet downgraded to puree with thin liquids in hospitalRe ferred to [facility] for continued tx. and eval Essential hypertension 36029257 I10 terazosin 5 mg qd (suspect this is more for urinary retention) Metoprolol 25 mg bidMonitor BP/HR qd and adjust meds prn Dementia 42346699 F02.80 expect declinesup portive careMonito r mood, behaviors for changePsyc h eval prn Benign pro static hyperplasia without outflow obstruction 566219141 N40.0 terazosin 5 mg qdLabs stable. Gastroesop hageal reflux disease without esophagitis 804818635 K21.9 omeprazole 40 mg qdmonitor for sxs Compressio n fracture of lumbar spine 692945405 M48.56XD Currently on tramadol 50mg bidmonitor pain and continue to reduce as able.APAP 1000 mg tidcontinu e PT/OT Diarrhea 38144780 R19.7 off miralax and colacehas had abx. recentlyWi ll add probiotic bid x 7 daysConsid er stool for c diff if remains problemati cPRN pepto bismol available prn per pt. request [id number] Chandrika Vasques NP [facility] [address] [address] 03/04/2023 13:40:05 03/12/2023 16:28:03 Paroxysmal atrial fibrillation 131484801 I48.0 overall hr and bps stable and [...] Acute non- ST segment elevation myocardial infarction 237621548 I21.4 metoprolol 25 mg bid as aboveatorv astatin 40 mg qdplavix 75 mg qdrecheck CMP on 05/14/23 due to start of statinMoni tor for chest pain, sobf/u with cards Anemia 335305796 D64.9 Hgb 10.3 -> 9.5No s/s active bleedingpl avix and xareltoNur se still not aware if Hemetest stools x 3 has been done but she will look into itMonitor Dysphagia 60248996 R13.1 0 Diet downgraded to puree with thin liquids in hospitalRe ferred to [facility] for continued tx. and eval/ nursing called today to order modified barium swallow and speech today [place] [facility] Essential hypertension 29484284 I10 terazosin 5 mg qd (suspect this is more for urinary retention) Metoprolol 25 mg bidMonitor BP/HR qd and adjust meds prn Dementia 06588615 F02.80 expect declinesup portive careMonito r mood, behaviors for changePsyc h eval prn Compressio n fracture of lumbar spine 240242031 M48.56XD / start lidocaine patch 4 % topically dailytrama dol 50mg daily -recently reducedmon itor pain and continue to reduce as able.APAP 1000 mg tidcontinu e PT/OT [id number] Chandrika Vasques NP [facility] [address] [address] 03/11/2023 12:36:23 03/13/2023 11:05:24 Compression fracture of lumbar spine 523236886 M48.56XD states he is willing to cont with another week of the patches consistent ly to see if it helps, nursing aware of concerncon tlidocaine patch 4 % topically dailytrama dol 50mg daily -recently reducedmon itor pain and continue to reduce as able.APAP 1000 mg tidcontinu e PT/OT Dysphagia 68755109 R13.1 0 Diet downgraded to puree with thin liquids in hospitalRe ferred to [facility] for continued tx. and eval03/04 modified barium swallow and speech at [facility] [place], test is pending on recheck on 03/11 Paroxysmal atrial fibrillation 465639577 I48.0 overall hr and bps stable and controlled on regimen-Wi th RVR during most recent hosp, given IV meds, converted back to NSR with frequent PACsMetopr olol tartate 25mg po bid, hold for SBP<90, P<60rivaro xaban 20 mg qd for ACChecking BP/HR qd x 2 weeksMonit or VS, labs, rate control, bleeding Acute non- ST segment elevation myocardial infarction 824197916 I21.4 metoprolol 25 mg bid as aboveatorv astatin 40 mg qdplavix 75 mg qdrecheck CMP on 05/14/23 due to start of statinMoni tor for chest pain, sobf/u with cards Anemia 707268840 D64.9 Hgb 10.3 -> 9.5 a few weeks agoNo s/s active bleedingpl avix and xareltoNur se still not aware if Hemetest stools x 3, one stool neg so far on will order cbc labs for next week x 1Monitor Essential hypertension 73732920 I10 terazosin 5 mg qd (suspect this is more for urinary retention) Metoprolol 25 mg bidMonitor BP/HR qd and adjust meds prn Dementia 58680746 F02.80 expect declinesup portive careMonito r mood, behaviors for changePsyc h eval prn [id number] Chandrika Vasques NP [facility] [address] [address] 03/12/2023 13:53:05 03/18/2023 07:49:23 Loose stool 151023046 R19.5 pt reports loose stools today and was on abx fairly recentlyon only prn stool softners and has not taken recently immodium 2 tabs with first stool and 1 tab po with each stool up to 4/daymonit orhemoccul t neg stool test recently [id number] STEPHANIE MYLES NP [facility] [address] [address] 03/18/2023 10:25:51 03/24/2023 08:50:33 Compression fracture of lumbar spine 100143364 M48.56XD HealingCon tinuelidoc soraya patch 4 % topically dailytrama dol 50mg daily - goal is to taper off completely APAP 1000 mg tidcontinu e PT/OT prn Dysphagia 62953628 R13.1 0 Diet downgraded to puree with thin liquids in hospitalRe ferred to [facility] for continued tx. and evalbarium swallow and speech at [facility] [place], sched. 04/01 Paroxysmal atrial fibrillation 368943348 I48.0 overall hr and bps stable and controlled on regimen-Wi th RVR during most recent hosp, given IV meds, converted back to NSR with frequent PACsContin ue metoprolol tartate 25mg po bid, hold for SBP<90, P<60rivaro xaban 20 mg qd for ACMonitor VS, labs, rate control, bleeding Acute non- ST segment elevation myocardial infarction 651990791 I21.4 metoprolol 25 mg bid as aboveatorv astatin 40 mg qdplavix 75 mg qdrecheck CMP on 05/14/23 due to start of statinMoni tor for chest pain, sobf/u with cards Anemia 739279792 D64.9 Hgb 10.3 -> 9.7No s/s active bleedingOn plavix and xareltoSto ol heme neg. x 1Monitor Essential hypertension 49432175 I10 terazosin 5 mg qd (suspect this is more for urinary retention) Metoprolol 25 mg bidMonitor BP/HR qd and adjust meds prn Dementia 35303443 F02.80 expect declinesup portive careMonito r mood, behaviors for changePsy h eval prn Loose stool 353317032 R1 9.5 Better with prn imodium and peptoMonit orPt to stop drinking coffee to see if this helps, will also consider lactose restrictio nDeclines GI referral at this time. [id number] STEPHANIE MYLES [facility] [address] [place] [address] 04/21/2023 15:31:02 04/24/2023 15:43:32 Compression fracture of lumbar spine 209722493 M48.56XD HealedCont inuelidoca ine patch 4 % topically dailyAPAP 1000 mg tidStop scheduled tramadol 50mg daily - change to prn, monitor use, goal is to taper off completely monitor pain Dysphagia 85598082 R13.1 0 Diet downgraded to puree with thin liquids in hospitalHa d swallow eval at [facility] [place], diet advanced to chopped with nectar thick liquids along with strict aspiration precaution s and to continue to work with ST here; unclear if seen, no notes seen, will re-referMo nitor Paroxysmal atrial fibrillation 597672804 I48.0 overall hr and bps stable and controlled on regimen-Wi th RVR during most recent hosp, given IV meds, converted back to NSR with frequent PACsContin ue metoprolol tartate 25mg po bid, hold for SBP<90, P<60rivaro xaban 20 mg qd for ACMonitor VS, labs, rate control, bleeding Acute non- ST segment elevation myocardial infarction 422856357 I21.4 metoprolol 25 mg bid as aboveatorv astatin 40 mg qdplavix 75 mg qdrecheck CMP on 05/14/23 due to start of statinMoni tor for chest pain, sobf/u with cards Anemia 822018345 D64.9 Hgb 10.3 -> 9.7No s/s active bleedingOn plavix and xareltoSto ol heme neg. x 1Monitor Essential hypertension 45597875 I10 terazosin 5 mg qd (suspect this is more for urinary retention) Metoprolol 25 mg bidMonitor BP/HR, adjust meds prn Dementia 31343314 F02.80 expect declinesup portive careMonito r mood, behaviors for changePsyc h eval prn Loose stool 285878497 R1 9.5 Better with prn imodium and peptoMonit or Serum crea tinine above reference range 228998663 R79.89 Repeating CMP 05/14Monito r [id number] Chandrika Vasques NP [address] [address] 06/22/2023 14:57:52 06/24/2023 08:55:11 Chronic low back pain 605564170 M54.50 did not boubacar reduction to daily prnlidcain e patch attempted and made him itchy, discontinu ed today06/22 increase tramadol 50 mg po q 8 hour prn painmonito r for use and relief [id number] Santa Miller MD [address] [address] 06/26/2023 07:41:17 06/30/2023 12:20:11 Dementia 81187305 F02.80 expect declinewil l monitor and support as neededsee meds for mixed anxiety disorder Chronic pain 96004746 G8 9.29 APAP 1000 mg tidtramado l 50 mg q8h prnPT/OT prnwill continue to monitor Paroxysmal atrial fibrillation 249543431 I48.0 rivaroxaba n 20 mg dailymetop rolol 25 mg bid for rate controlwil l monitor Gastroesop hageal reflux disease without esophagitis 664157904 K21.9 omeprazole 40 mg dailywill monitor Essential hypertension 34878047 I10 terazosin 5 mg dailywill monitor Coronary arteriosclerosis 08894057 I25.10 clopidogre l 75 mg dailyatorv astatin 40 mg dailymetop rolol 25 mg bidwill monitor History of cerebrovascular accident 409330590 Z86.73 clopidogre l 75 mg dailyatorv astatin 40 mg dailyrivar oxaban 20 mg dailywill monitor [id number] [facility] [address] 09/08/2023 15:57:21 09/15/2023 10:48:36 Dementia 50745389 F02.80 Monitor mood, behaviorsH CP invokedNot on meds at this time. Chronic pain 53007797 G8 9.29 APAP prntramado l 50 mg q8h prn - using about once a dayPT/OT prnwill continue to monitor Paroxysmal atrial fibrillation 246689692 I48.0 Continue:r ivaroxaban 20 mg daily for ACmetoprol ol 25 mg bid for rate controlmon itor VS, labs, adjust tx. prn Gastroesop hageal reflux disease without esophagitis 008048853 K21.9 Continue omeprazole 40 mg daily - consider dose reduction as GI status stablizing will monitor Essential hypertension 77955907 I10 Continue:t erazosin 5 mg daily (also using for BPH)metopr olol 25 mg bid (also using for rate control)mo nitor VS, adjust prn Coronary arteriosclerosis 35353670 I25.10 Currently stableCont inue:clopi dogrel 75 mg dailyatorv astatin 40 mg dailymetop rolol 25 mg bidLFTs OK, check lipid panel x 1Monitor CP status, adjust meds prn History of cerebrovascular accident 647980636 Z86.73 Continue:c lopidogrel 75 mg dailyatorv astatin 40 mg dailyrivar oxaban 20 mg dailywill monitor Retention of urine 81811 4002 R33.8 Continue terazosin 5 mg qd, monitor urinary status [id number] Chandrika Vasques NP [address] [address] 09/14/2023 11:03:05 09/15/2023 16:30:05 Dementia 03835608 F02.80 expect declinesup portive careMonito r mood, behaviors for changePsyc h eval prnpt brought in his own fish oil capsules 2 tabs po daily(he is aware he will reorder himself)mo nitor [id number] Chandrika Vasques NP [address] [address] 09/28/2023 13:41:26 09/30/2023 09:04:02 Dementia 74548762 F02.80 expect declinesup portive careMonito r mood, behaviors for changePsyc h eval prnfish oil capsules 2 tabs po daily(he is aware he will reorder himself)mo nitor Dysphagia 03137152 R13.1 0 diet regular with chopped texture and thin liquidsmon itor for changesspe ech to eval and treat Loss of appetite 5642538 6 R63.0 recent loss of appetitede nies any cold/flu symptomsre fuses appetite enhancersa lready on omeprazole , pepto bismol, and sennahe is agreeable to:resp panel sent outdietici an to see him for alt choicesmon itor wgt and status of eating [id number] Chandrika Vasques, SUMANTH [facility] [address] [address] 09/30/2023 14:04:18 10/08/2023 12:55:33 Dementia 03902332 F02.80 expect declinesup portive careMonito r mood, behaviors for changePsyc h eval prnfish oil capsules 2 tabs po daily(he is aware he will reorder himself)mo nitor Acute COVID-19 371851827 8 U07.1 pt covid positive on 09/29 [...] covid positivevi tals dailymonit or for sequelae [id number] STEPHANIE MYLES NP [facility] [address] [address] 10/01/2023 13:07:54 10/08/2023 13:23:42 Acute COVID-19 8144414495 U07.1 pt covid positive on 09/29 resulted on 09/30. symptomati c on 09/27On 09/30, started:mo lnupiravir 800 mg po bid x 5 daysrobitu ssin 10 ml po q 4 hours prn coughCheck cmp and cbc on thursday x 1Continue airborne isolation precaution s per facilityEn courage fluids, goal >2L/dvital s dailymonit or for sequelae [id number] Chandrika Vasques NP [facility] [address] [address] 10/02/2023 13:28:52 10/08/2023 13:40:12 Acute COVID-19 9171944339 U07.1 pt covid positive on 09/29 resulted on 09/30. symptomati c on 09/30, started:mo lnupiravir 800 mg po bid x 5 daysrobitu ssin 10 ml po q 4 hours prn coughCheck cmp and cbc on thursday x 1 irborn e isolation precaution s per facilityEn courage fluids, goal >2L/dvital s dailymonit or for sequelae Insomnia 870905783 G47.0 0 new difficulty sleeping, unclear if related to covid2/2 start melatonin 5 mg po qhsmonitor for effect [id number] Chandrika Vasques NP [facility] [address] [address] 10/05/2023 11:31:23 10/08/2023 14:09:30 Acute COVID-19 [id number] U07.1 pt covid positive on 09/29 resulted on 09/30. symptomati c on 09/30, started:co ntmolnupir avir 800 mg po bid x 5 days end 10/05/23robi tussin 10 ml po q 4 hours prn coughairbo rne isolation precaution s per facilityEn courage fluids, goal >2L/dvital s dailymonit or for sequelae [id number] Chandrika Vasques NP [facility] [address] [address] 10/07/2023 16:24:57 10/12/2023 15:09:07 Acute COVID-19 [id number] U07.1 pt covid positive on 09/29 resulted on 09/30. symptomati c on 09/30, started:co ntcomplete d molnupirav ir 800 mg po bid x 5 days end 10/05/23robi tussin 10 ml po q 4 hours prn coughairbo rne isolation precaution s per facilityEn courage fluids, goal >2L/dvital s dailymonit or for sequelae 2/7 cont above plan [id number] Chandrika Vasques NP [facility] [address] [address] 10/08/2023 13:31:02 10/13/2023 08:31:49 Acute COVID-19 0827818903 U07.1 pt covid positive on 09/29 resulted on 09/30. symptomati c on 09/27On 09/30, started:co ntcomplete d molnupirav ir 800 mg po bid x 5 days end 10/05/23robi tussin 10 ml po q 4 hours prn coughairbo rne isolation precaution s per facilityEn courage fluids, goal >2L/dvital s dailymonit or for sequelae 2/8 cont above plandc daily vitals [id number] Chandrika Vasques NP [facility] [address] [address] 10/12/2023 13:31:51 10/13/2023 19:58:33 Acute COVID-19 7596186290 U07.1 resolvedpt covid positive on 09/29 resulted on 09/30. symptomati c on 09/27On 09/30, started:co ntcomplete d molnupirav ir 800 mg po bid x 5 days end 10/05/23robi tussin 10 ml po q 4 hours prn coughairbo rne isolation precaution s per facilityEn courage fluids, goal >2L/dvital s dailymonit or for sequelae Pain in ri ght hip joint [id number] 10976 M25.551 noted increase in right hip pain with extension and difficulty standing. will do bilateral hip/pelvis xray today to rule out cause/fxco nt tramadol for painnote; osteoarthr itis noted on 03/22 left kneemonito r [id number] Chandrika Vasques NP [facility] [address] [address] 10/14/2023 15:29:43 10/15/2023 20:02:49 Pain in right hip joint [id number] 09021 M25.551 Xray from 10/12/23 shows subcortica l fracture with depression of the right femoral head Joint spaces narrowed. with report just received to this [employer]. noted increase in right hip pain with extension and difficulty standing.n o cause of injury 10/14 will increase tramadol 50 to q 4 hours for pain and monitor and tyl prnlog roll ptno standing or therapy until cleared he refuses to go to ER at this timeorthop edic consult geoff note; osteoarthr itis noted on 03/22 left kneemonito r Acute COVID-19 [id number] 8 U07.1 resolvedpt covid positive on 09/29 resulted on 09/30. symptomati c on 09/27On 09/30, started:co ntcomplete d molnupirav ir 800 mg po bid x 5 days end 10/05/23robi tussin 10 ml po q 4 hours prn coughairbo rne isolation precaution s per facilityEn courage fluids, goal >2L/dvital s dailymonit or for sequelae [id number] Chandrika Vasques NP [facility] [address] [address] 10/19/2023 15:39:09 10/20/2023 11:02:01 Osteonecrosis of head of femur 001826917 M87.859 right hip pain controlled remains Wheelchair [...] is nearly resolved per patient. Acute cystitis 24647266 N30.00 found to have ecoli UTI treated with ceftriaxon e in hospPlan:c ont cefpodoxim e tab 200 mg po q 12 hours until 10/21monito r for sequelaecb c and bmp to trend labs [id number] Chandrika Vasques NP [facility] [address] [address] 10/26/2023 10:30:18 10/28/2023 03:49:36 Osteonecrosis of head of femur 665039762 M87.859 right hip pain controlled remains Wheelchair [...] OT to eval and treat Acute cystitis 96646345 N30.00 found to have ecoli UTI treated with ceftriaxon e in hosp now resolved with course of po cefpodoxim e on 10/21monito r for sequelae [id number] Danni Joel MD [address] [address] 10/26/2023 19:46:14 11/24/2023 09:25:47 Osteonecrosis of head of femur 226909527 M87.851 Continues with intermitte nt pain, comes on suddenly and is severe, sounds like an element of muscle spasm, but random, so will not try muscle relaxant yet.Contin ue tramadol 50 mg q 6am and then 50 mg q 4 hrs prnContinu e PT/OT as able.F/U with ortho Acute cystitis 91243654 N30.00 Completed course of abxs.Monit or for recurrence . Insomnia 584833774 G47.0 0 Continue meds as above.Lucretia tor sleep patterns Dementia 21002315 F02.80 Mild at baseline, but waxes and wanesWith continued intermitte nt agitation. Continue trazadone 50 mg qhs and melatonin 5 mg qhs.Contin ue supportive care, expect decline.HC P invokedMon itor mood and behaviors. Psych follows Coronary arteriosclerosis 78243941 I25.10 No current sxs.Contin ue meds as above and clopidogre l 75 mg qd Paroxysmal atrial fibrillation 981597516 I48.0 Rate in good control on metoprolol as above.Cont inue Xarelto 20 mg qd for AC.Monitor HR and bleeding risk. Essential hypertension 23597184 I10 In good control on terazosin 5 mg qd (also using for BPH), and metoprolol 25 mg BID.Monito r BP and labs Retention of urine 93617 4002 R33.8 Continue terazosin 5 mg qd, monitor urinary status Gastroesop hageal reflux disease without esophagitis 122375225 K21.9 Continue omeprazole 40 mg qdConsider dose reduction if he remains sx free.Monit or sxs History of SARS-CoV-2 29 17881682 49918015 Z86.16 Tested + 09/29/23Now recovered. Monitor for sequelae. [id number] Chandrika Vasques NP [address] [address] 11/02/2023 08:32:19 11/04/2023 14:54:48 Osteonecrosis of head of femur 038100489 M87.859 right hip pain controlled on tramadolre [...] and family aware of [facility])Woul d have low threshold for reimaging and reconsulti ng orthopedic surgery if pain is worsening despite analgesia. 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 Acute cystitis 03165119 N30.00 resolved11/01 repeat urine resulted as negative for infection found to have ecoli UTI treated with ceftriaxon e in hosp now resolved with course of po cefpodoxim e on 10/21monito r for sequelae Mixed anxi ety and depressive disorder 149133581 F41.8 has been aggressive and having difficulty with recent AVN [facility]29 and rectrazodo ne 50 mg po qhs and trazodone 25 mg bid prn x 14 days, then re-eval, will start as recfamily is coming in to sign consent today [id number] Chandrika Vasques NP [facility] [address] 11/06/2023 13:16:32 11/10/2023 08:52:10 Osteonecrosis of head of femur 788195228 M87.859 right hip pain moderately controlled on [...] analgesia. Mixed anxi ety and depressive disorder 156969144 F41.8 has been aggressive and having difficulty with recent [facility] and rectrazodo ne 50 mg po qhs and trazodone 25 mg bid prn x 14 days, then re-evalmon itor for anxiety Insomnia 209218009 G47.0 0 new difficulty sleeping, unclear if related to covid2/2 start melatonin 5 mg po qhsmonitor for effect Dementia 42192830 F02.80 expect declinesup portive careMonito r mood, behaviors for changePsyc h eval prnfish oil capsules 2 tabs po daily(he is aware he will reorder himself)mo nitor Coronary arteriosclerosis 51937588 I25.10 Currently stableCont inue:clopi dogrel 75 mg dailyatorv astatin 40 mg dailymetop rolol 25 mg bidMonitor CP status, adjust meds prn Paroxysmal atrial fibrillation 369686867 I48.0 Continue:r ivaroxaban 20 mg daily for ACmetoprol ol 25 mg bid for rate controlmon itor VS, labs, adjust tx. prn Essential hypertension 23558290 I10 Continue:t erazosin 5 mg daily (also using for BPH)metopr olol 25 mg bid (also using for rate control)mo nitor VS, adjust prn Retention of urine 40819 4002 R33.8 Continuete razosin 5 mg qdmonitor urinary status Gastroesop hageal reflux disease without esophagitis 221992646 K21.9 Continueom eprazole 40 mg dailywill monitor [id number] Chandrika Vasques NP [facility] [address] [place] [address] 11/09/2023 08:19:47 11/16/2023 09:53:07 Osteonecrosis of head of femur 015152106 M87.859 right hip pain moderately controlled on [...] analgesia. Mixed anxi ety and depressive disorder 204300910 F41.8 has been aggressive and having difficulty with recent [facility] and rectrazodo ne 50 mg po qhs and trazodone 25 mg bid prn x 14 days, then re-eval on 11/15monito r for anxietypsy ch to reeval for increased anxiety Insomnia 047264077 G47.0 0 conttrazad one 5o mg po qhsmelaton in 5 mg po qhsmonitor for effect Dementia 95139510 F02.80 expect decline, seems more anxious and forgetful latelysupp ortive careMonito r mood, behaviors for changePsyc h eval prnfish oil capsules 2 tabs po daily(he is aware he will reorder himself)mo nitor [id number] Chandrika Vasques NP [facility] [address] 11/11/2023 10:42:10 11/16/2023 10:03:39 Osteonecrosis of head of femur 478151919 M87.859 right hip pain moderately controlled on [...] analgesia. Mixed anxi ety and depressive disorder 823454184 F41.8 has been aggressive and having difficulty with recent AVN [facility]ps [facility] on 10/29 and rectrazodo ne 50 mg po qhs and trazodone 25 mg bid prn x 14 days, then re-eval on 11/15monito r for anxiety10/29 3 psych to reeval for increased anxiety Dementia 90298867 F02.80 expect decline, seems more anxious and forgetful latelysupp ortive careMonito r mood, behaviors for changePsyc h eval prnfish oil capsules 2 tabs po daily(he is aware he will reorder himself)mo nitor [id number] Chandrika Vasques NP [facility] [address] 11/12/2023 12:12:21 11/16/2023 10:38:12 Osteonecrosis of head of femur 664884526 M87.859 right hip pain moderately controlled on [...] analgesia. Mixed anxi ety and depressive disorder 977959733 F41.8 has been aggressive and having difficulty with recent AVN [facility]ps [facility] 10/29 and rectrazodo ne 50 mg po qhs and trazodone 25 mg bid prn x 14 days, then re-eval on 11/15monito r for anxietypsy ch to reeval for increased anxiety Dementia 62508914 F02.80 expect decline, seems more anxious and forgetful latelysupp ortive careMonito r mood, behaviors for changePsyc h eval prnfish oil capsules 2 tabs po daily(he is aware he will reorder himself)mo karley [id number] Chandrika Vasques NP [address] [address] 11/27/2023 16:43:39 12/01/2023 09:36:43 Mixed anxiety and depressive disorder 850084983 F41.8 has been aggressive and having difficulty [...] seroquel if improved to on 11/27/23. Dementia 42595830 F02.80 expect decline, seems more anxious and forgetful latelysupp ortive careMonito r mood, behaviors for changePsyc h eval prnfish oil capsules 2 tabs po daily(he is aware he will reorder himself)mo nitor Cold hands 039276965 R20 .8 pt with cold right hand sensation without color, sensation, or rom changewill monitor as it is just the right hand and no hx of raynaudsco nsider moving watch to other hand, blankets, or glovemonit or Dysphagia 13448045 R13.1 0 diet regular with chopped texture and thin liquidsmon itor for changesspe ech to eval and treat [id number] Chandrika Vasques NP [facility] [address] 12/07/2023 09:07:24 12/16/2023 08:30:54 Dementia 19360212 F02.80 expect decline, seems more anxious and forgetful latelysupp ortive careMonito r mood, behaviors for changePsyc h eval prnfish oil capsules 2 tabs po daily(he is aware he will reorder himself)mo nitor Pain in ri ght hip joint 4867357632 94274 M25.551 Xray from 10/12/23 shows subcortica l [...] right hipmonitor for pain relief and sequelae [id number] STEPHANIE MYLES NP [facility] [address] 12/15/2023 10:42:43 12/17/2023 13:07:58 Pain in right hip joint 4654468038 15712 M25.551 Xray from 10/12/23 = subcortica l fracture with depression of the right femoral headCT scan = AVNRefusin g surgery/Or tho follow up. Meds adjusted -currently on daily ultram with prn doses availableb aclofen 10 mg tid prn.APAP prnDiclofe nac gel bid Referred to Dr. Brown, PMR, for eval and tx. Continue to monitor Dementia 76651138 F02.80 Expect continued declineCon tinue supportive careMonito r mood, behaviors for changeCont inue trazodone 50 mg q HSAlso taking prevagen supplement Psych eval prnHCP invokedBIM S completed 12/15/23: score 6/15 Mixed anxi ety and depressive disorder 509340531 F41.8 Seen by Psych for med mgmt, trazodone 50 mg q HS added about 6 wks ago, so far has tolerated wellContin ue to monitor mood, behaviorsR efer to Psych prn Insomnia 122101025 G47.0 0 Currently on melatonin 5 mg po and trazodone 50 mg q HSmonitor sleep Coronary arteriosclerosis 49945702 I25.10 Currently stableCont inue:clopi dogrel 75 mg dailyatorv astatin 40 mg dailymetop rolol 25 mg bidMonitor CP status, adjust meds prnLast LFTs 10/05/23 WNRNo lipid panel see in labs - will check x 1 Paroxysmal atrial fibrillation 654518351 I48.0 Continue:r ivaroxaban 20 mg daily for ACmetoprol ol 25 mg bid for rate controlmon itor VS, labs, adjust tx. prn Essential hypertension 89543671 I10 Continue:t erazosin 5 mg daily (also using for BPH)metopr olol 25 mg bid (also using for rate control)mo nitor VS, adjust prn Retention of urine 57789 4002 R33.8 Continuete razosin 5 mg qdmonitor urinary status Gastroesop hageal reflux disease without esophagitis 930348399 K21.9 On omeprazole 40 mg daily -> reduce to 20 mg qdmonitor GI sx.Continu e to taper as able/gonzalez e to pepcid Mixed hyperlipidemia 267 993278 E78.2 On atorvastat in 40 mg qdLFTS in Oct stableChe k lipid panel x 1 [id number] Chandrika Vasques NP [address] [address] 12/23/2023 15:07:16 12/30/2023 12:16:25 Osteonecrosis 608446918 M87.9 avn of right hips with underlying osteoarthr itishas AVR of hips on CTpt seen by psyiatrist and rec:12/22 changing diclofenac gel to 75 mg po qd and adding gabapentin 100 mg qhscontbac lofen 10 mg po q 8 hours prn paintramad ol 50 mg po q am and q 4 hour prn painmonito r for use and relief [id number] STEPHANIE MYLES NP [address] [address] 01/19/2024 13:20:22 01/20/2024 14:27:41 Gastroesophageal reflux disease 341679459 K21.9 Previously on omeprazole 40 mg qd.Tapered down to 20 mg qd on 12/14, but upon review of MAR med was not listed.Dawn n -Restart omeprazole 40 mg qdCBC in amHOB>30 degrees.Mo nitor sx.May need to reconsider po diclofenac . 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 r/t GERD sx. vs. thrush.Sta rting PPI as aboveAdd Nystatin S&S 5 nl qid x 14 daysMonito r sx. [id number] Chandrika Vasques NP [address] [address] 01/20/2024 15:32:39 02/02/2024 13:08:30 Gastroesophageal reflux disease 503925053 K21.9 contomepra zole 40 mg qdHOB>30 degrees.Mo nitor sx.May need to reconsider po diclofenac . Candidiasi s of the esophagus 22292962 B37.81 C/O sore throat - poss. r/t GERD sx. vs. thrush.reS tarting PPI as abovecontN ystatin S&S 5 nl qid x 14 daysMonito r sx. Dementia 36700790 F02.80 expect decline, seems more anxious and forgetful latelysupp ortive careMonito r mood, behaviors for changePsyc h eval prnfish oil capsules 2 tabs po daily(he is aware he will reorder himself) prevagenmo nitor Leukocytosis 609915932 D 72.829 leukocytos is 13.4 on labs without obvious source of infectionstartur inalysis wtih c & scxr with 2 viewsmonit or for source of infection, changes in conditionm ay need repeat labs on thursday [id number] Chandrika Vasques NP [facility] [address] 01/22/2024 11:00:33 02/02/2024 14:06:52 Dementia 66795964 F02.80 expect decline, seems more anxious and forgetful latelysupp ortive careMonito r mood, behaviors for changePsyc h eval prnfish oil capsules 2 tabs po daily(he is aware he will reorder himself) prevagenmo nitor Acute cystitis 75292169 N30.00 found to have a UTI with gram neg rods and elevated wbc count with increased forgetfuln ess01/21 start levofloxac in 250 mg po bid with probiotic for 7 daysmonito r for sequelae [id number] STEPHANIE MYLES NP [facility] [address] 01/26/2024 11:33:50 02/02/2024 14:31:32 Acute cystitis 30268946 N30.00 See above, elevated wbc prompting w/u for infection. UA C&S positive, >100K E. Coli and >100K ProteusCur rently on levaquin, Proteus sensitive but not E. Coli.Plan -stop levaquinst art augmentin 500 mg tid x 5 days plus probiotic. repeat CBC x 1 6/3maintai n fluidstren d VS and sx. Leukocytosis 248117042 D 72.829 CBC checked last week due to GI complaints Incidental finding of wbc 13.4CXR checked - neg.UA C&S checked - positive for UTI - currently treating with abx.VSSNo sx. infectionR epeat CBC 01/31 [id number] Cole Pete MD [facility] [address] 02/10/2024 13:53:01 02/12/2024 12:10:27 Dementia 31993591 F02.80 baseline dementiaco ntinue supportive caremonito r for behaviorsp sych eval prn Coronary arteriosclerosis 61154908 I25.10 lipitor 40 mg qdplavix 75 mg qdmetoprol ol 25 mg bidmonitor for sx Paroxysmal atrial fibrillation 940157545 I48.0 xarelto 20 mg qdmetoprol ol 25 mg bidmonitor for rate control Essential hypertension 43580382 I10 currently wnrmonitor bp and need to titrate meds [id number] Chandrika Vasques NP [facility] [address] [place] [address] 02/22/2024 13:20:39 03/01/2024 08:57:18 Dementia 81037850 F02.80 baseline dementiaco ntinue supportive caremonito r for behaviorsp sych eval prn Paroxysmal atrial fibrillation 853760674 I48.0 xarelto 20 mg qdmetoprol ol 25 mg bidmonitor for rate control Coronary arteriosclerosis 15215554 I25.10 lipitor 40 mg qdplavix 75 mg qdmetoprol ol 25 mg bidmonitor for sx Essential hypertension 60620969 I10 currently wnrmonitor bp and need to titrate meds Acute COVID-19 674263031 8 U07.1 pt covid positive 02/20spoke with [facility] pharmacist for best antiviral choice and availabili ty with rec as belowcont startmolnu piravir 800 mg po bid x 5 daysrobitu ssin 10 ml po q 4 hours prn coughairbo rne isolation precaution s per facilityEn courage fluids, goal >2L/dvital s dailymonit or for sequelae [id number] Chandrika Vasques NP [facility] [address] [place] [address] 02/24/2024 11:32:43 03/01/2024 09:56:05 Acute COVID-19 8392806418 U07.1 pt covid positive 02/18, restested today [...] >2L/dvital s dailymonit or for sequelae Dementia 62573455 F02.80 baseline dementiaco ntinue supportive caremonito r for behaviorsp sych eval prn [id number] Chandrika Vasques NP [facility] [address] [address] 03/28/2024 11:53:05 03/30/2024 12:55:25 Dementia 92750483 F02.80 baseline dementiaco ntinue supportive caremonito r for behaviorsp sych eval prn Benign pro static hyperplasia 020867052 N40.1 pt with hx of bph now reporting he is urinating frequently and all over the place refu ses straight cath post void and bladder scanner not availhas been on flomax in the past with good results03/01 9 start flomax 0.4 mg po qhs03/28 start urinalysis with c & smonitor [id number] Chandrika Vasques NP [facility] [address] [address] 03/30/2024 10:50:02 04/01/2024 13:41:47 Benign prostatic hyperplasia 178297247 N40.1 pt with hx of bph now [...] is likely related to bothmonito r Dementia 84817212 F02.80 baseline dementiaco ntinue supportive caremonito r for behaviorsp sych eval prn Urinary tr act infectious disease 36920103 N39.0 pt with hx of bph now [...] po daily indefinite for UTI prophylact icmonitor [id number] Chandrika Vasques NP [facility] [address] 04/07/2024 13:22:15 04/12/2024 15:43:30 Urinary tract infectious disease 01081098 N39.0 pt with hx of bph now [...] UTI prophylact icmonitor Benign pro static hyperplasia 875628199 N40.1 contflomax 0.4 mg po qhsmonitor Dementia 10758005 F02.80 baseline dementiaco ntinue supportive caremonito r for behaviorsp sych eval prn Paroxysmal atrial fibrillation 768096406 I48.0 contxarelt o 20 mg qdmetoprol ol 25 mg bidmonitor for rate control Coronary arteriosclerosis 23221635 I25.10 lipitor 40 mg qdplavix 75 mg qdmetoprol ol 25 mg bidmonitor for sx Essential hypertension 86568196 I10 currently stablemoni tor bp and need to titrate medsmetopr olol 25 mg bidmonitor for sx [id number] Chandrika Vasques NP [facility] [address] [address] 05/26/2024 12:11:33 05/27/2024 11:45:26 Dementia 37068437 F02.80 baseline dementiaco ntinue supportive caremonito r for behaviorsp sych eval prn Respirator y tract congestion and cough 472215253 R05.9 pt with congestion x 2 days with cough and sputumcxr 2 views for cough and congcbc with diff and bmp tomcovid testmucine x dm 600/30 mg po bid x 10 daysmonito r [id number] Chandrika Vasques NP [facility] [address] [address] 05/27/2024 14:46:58 05/30/2024 13:20:37 Dementia 27623873 F02.80 baseline dementiaco ntinue supportive caremonito r for behaviorsp sych eval prn Respirator y tract congestion and cough 763333882 R05.9 pt with congestion x 3 days with cough and sputumcxr 2 views for cough and jules negative for pna on c with diff and bmp tomcovid testlabs stable with low stable h/hmucinex dm 600/30 mg po bid x 10 daysmonito r Anemia 252418376 D64.9 with low h/h today and vague hx of anemiaNo s/s active bleedingpl avix and xareltocbc next week with iron studiesMon itor [id number] Chandrika Vasques NP [facility] [address] [address] 05/30/2024 14:41:56 05/31/2024 13:55:10 Dementia 40997039 F02.80 baseline dementiaoh ntinue supportive caremonito r for behaviorsp sych eval prn Respirator y tract congestion and cough 640391530 R05.9 pt with congestion x 3 days with cough and sputumcxr 2 views for cough and jules negative for pna on 05/26cbc with diff and bmp as abovecovid testlabs stable with low stable h/hmucinex dm 600/30 mg po bid x 10 days totalmonit or Anemia 664138720 D64.9 with low h/h today and vague hx of anemiaNo s/s active bleedingpl avix and xareltocbc with diff and iron studies on tuconsid er need for iron or supplement sMonitor [id number] Chandrika Vasques NP [facility] [address] [address] 06/01/2024 13:49:00 06/02/2024 15:25:13 Respiratory tract congestion and cough 064835761 R05.9 pt with congestion x 1 week, overall improving slightlycx r 2 views for cough and jules negative for pna on 05/26cbc with diff and bmp as above stablecovi [...] not have meds in roommonito r Dementia 15751410 F02.80 baseline dementiaco ntinue supportive caremonito r for behaviorsp sych eval prn Anemia 703026149 D64.9 anemia and labs improved since last setNo s/s active bleedingpl avix and xareltolab s as abovewill hold off on starting iron at this time, he is not a fan of iron pillMonito r [id number] Chandrika Vasques, SUMANTH [facility] [address] 06/03/2024 11:18:16 06/06/2024 12:06:18 Respiratory tract congestion and cough 543844102 R05.9 pt with congestion x 1-2 weeks, [...] bid x 10 days totalmonit or Dementia 39005953 F02.80 baseline dementiaco ntinue supportive caremonito r for behaviorsp sych eval prn10/4 no longer on prevagen, family no longer bringing in Anemia 328054130 D64.9 anemia and labs improved since last set with slight GABRIELA anemiaNo s/s active bleedingpl avix and xareltolab s as abovehe is not a fan of iron pill, however agrees to multivitam in with ironMonito r Constipation 32341571 K5 9.00 with hard large /4 increase colace to 100 mg po bidhouse regimen prnmonitor [id number] STEPHANIE MYLES NP [address] [place] [address] 06/28/2024 14:25:49 06/29/2024 10:53:55 Dementia [id number] F02.80 baseline dementia, no behaviors presentlyc ontinue HS trazodone, melatonin, and gabapentin continue supportive caremonito r for behaviorsp sych eval prn Urinary tr act infectious disease 03942197 N39.0 Back on flomax, already on terazosin, ? need to continue long termComple ashley abx, for acute UTI, now on daily nitrofuran toin 50 mg po daily for prophylact ic tx.monitor Benign pro static hyperplasia 526691166 N40.1 continue:t erazosin 5 mg qdflomax 0.4 mg po qhs added, ? need to continue ocean transportation intermediary as already on terazosinm onitor Paroxysmal atrial fibrillation 976330625 I48.0 contxarelt o 20 mg qdmetoprol ol 25 mg bidmonitor for rate control Coronary arteriosclerosis 20929531 I25.10 lipitor 40 mg qdplavix 75 mg qdmetoprol ol 25 mg bidmonitor for sx Essential hypertension 34227503 I10 currently stablecont inue metoprolol 25 mg bid (also on for rate control for AF)monitor for sx Respirator y tract congestion and cough 413167798 R05.9 pt with congestion x 2 weeks, now improving. CXR negLabs stableResp onding well to conservati ve medsmonito r Anemia 101607790 D64.9 anemia and labs improvedNo s/s active bleedingpl avix and xareltolab s as abovehe is not a fan of iron pill, however agrees to multivitam in with ironMonito r Constipation 37321292 K5 9.00 with hard large /4 increase colace to 100 mg po bidhouse regimen prnmonitor Chronic low back pain 27 0153413 M54.50 Currently comfortabl e on daily and prn ultram, diclofenac daily, HS gabapentin . PRN baclofen and APAPMonito r Acute non- ST segment elevation myocardial infarction 556021685 I21.4 metoprolol 25 mg bid as aboveatorv astatin 40 mg qdplavix 75 mg qd Monitor for chest pain, sobf/u with cards prn [id number] Chandrika Vasques NP [facility] [address] [address] 07/08/2024 16:28:11 07/11/2024 11:31:36 Dementia [id number] F02.80 baseline dementia, no behaviors presentlyc ontinue HS trazodone, melatonin, and gabapentin continue supportive caremonito r for behaviorsp sych eval prn Urinary tr act infectious disease 22621989 N39.0 Back on flomax, already on terazosin, ? need to continue long termcont nitrofuran toin 50 mg po daily for prophylact ic tx.monitor Depressive disorder 3548 9007 F33.8 pt with agitation and increased behaviors1 09/08 start trazodone 25 mg po q am and cont 50 mg po qhspsych consult prnmonitor Recurrent falls 25346575 2 R29.6 pt with recurrent fall, fall on 07/08 without injuriessu pportive caresafety precaution smonitor [id number] Chandrika Vasques NP [facility] [address] 07/18/2024 14:45:59 07/19/2024 10:30:32 Dementia [id number] F02.80 baseline dementia, no behaviors presently1 09/17 start trazodone 25 mgpo q 12 hours prn agitation/ anxiety x 14 dayscontin uetrazodon e 50 mg qhstrazodo ne 25 mg po ammelatoni n 5mg qhsgabapen tin 100 mg po pmcontinue supportive caremonito r for behaviorsp sych eval prn Urinary tr act infectious disease 87975725 N39.0 contflomax , already on terazosin, ? [...] q 12 hours prn x 14 days [id number] Chandrika Vasques NP [address] [address] 07/25/2024 09:14:33 07/27/2024 08:46:44 Depressive disorder 30925261 F33.8 pt with agitation and increased behaviors latelycont trazodone 25 mg po q am and cont 50 mg po qhspsych consult prnmonitor 07/25reord ered cbc and bmp, lfts, pt/inr and ua for adelsoif labs wnl, psych rec depakote 250 mg cap q am(if depakote started-co nsider level in a few weeks)cont trazodone 25 mg po q 12 hours prn x 14 days Dementia 62299678 F02.80 baseline dementia, no behaviors presently1 09/24 cont trazodone 25 mgpo q 12 hours prn agitation/ anxiety x 14 days total (started on 07/18)see aboveconti nuetrazodo ne 50 mg qhstrazodo ne 25 mg po ammelatoni n 5mg qhsgabapen tin 100 mg po pmcontinue supportive caremonito r for behaviorsp sych eval prn Urinary tr act infectious disease 58253119 N39.0 contflomax , already on terazosin, ? need to continue long termnitrof urantoin 50 mg po daily for prophylact ic tx.monitor as above with ua for infection [id number] Chandrika Vasques NP [facility] [address] 08/03/2024 13:44:15 08/04/2024 11:58:16 Depressive disorder 40340351 F33.8 pt with agitation and increased behaviors latelycont trazodone 25 mg po q am and cont 50 mg po qhspsych consult prnmonitor 08/03 per psych rec on 07/25 start depakote 250 mg cap q am( labs now received and can start)steph w trazodone 25 mg po q 12 hours prn x 14 daysvalpro ic acid level in one month Dementia 09501337 F02.80 baseline dementia, with behaviors (unclear if this is new or baseline)1 10/04urinaly sis with c ssee abovecontt razodone 25 mg po q 12 hours prn agitation/ anxiety x 14 days total (started on 07/18)traz odone 50 mg qhstrazodo ne 25 mg po ammelatoni n 5mg qhsgabapen tin 100 mg po pmcontinue supportive caremonito r for behaviorsp sych eval prn Anemia 081964232 D64.9 anemia and labs improved since last set with slight GABRIELA anemiaNo s/s active bleedingpl avix and xareltolab s as abovecont multivitam in with iron08/03 restart iron qdMonitorc bc in 1 month 09/03/24 [id number] Chandrika Vasques NP [facility] [address] [address] 08/05/2024 12:40:02 08/08/2024 13:26:36 Dementia 04375245 F02.80 baseline dementia, with behaviors (unclear if this is new or baseline, possibly related to UTI.see abovecontt razodone 25 mg po q 12 hours prn agitation/ anxiety x 14 daystrazod one 50 mg qhstrazodo ne 25 mg po ammelatoni n 5mg qhsgabapen tin 100 mg po pmcontinue supportive caremonito r for behaviorsp sych eval prn Urinary tr act infectious disease 79370811 N39.0 contflomax need to continue ocean transportation intermediary prophylaxi s for freq UTInitrofu rantoin 50 mg po daily for prophylact ic tx. on hold while on levaquin, then luwzac43/6 start levaquin 750 mg po qd x 7days with probiotic 1 tab po bid x 9 daysmonito r for sequelae. [id number] Chandrika Vasques NP [facility] [address] [address] 08/08/2024 09:16:11 08/09/2024 13:37:49 Urinary tract infectious disease 74902420 N39.0 contflomax need to continue ocean transportation intermediary prophylaxi s for freq UTInitrofu rantoin 50 mg po daily for prophylact ic tx. on hold while on levaquin/a ugmentin, then zotswb05/6 start levaquin 750 mg po qd x 7days with probiotic 1 tab po bid x 9 days08/08 culture and sensitivit ies show resistant to levaquin but susceptibl e to augmentin. Will change to augmentin 500 mg po bid x 7 days with probiotic and will hold nitrofuran toin while on augmentin. monitor for sequelae. Dementia 97582172 F02.80 baseline dementia, with behaviors (unclear if this is new or baseline, possibly related to UTI.see abovecontt razodone 25 mg po q 12 hours prn agitation/ anxiety x 14 daystrazod one 50 mg qhstrazodo ne 25 mg po ammelatoni n 5mg qhsgabapen tin 100 mg po pmcontinue supportive caremonito r for behaviorsp sych eval prn [id number] Chandrika Vasques NP [address] [address] 09/07/2024 12:34:44 09/08/2024 10:36:19 Urinary tract infectious disease 20368408 N39.0 contflomax need to continue longterm prophylaxi s for freq UTInitrofu rantoin 50 mg po dailycompl eted levaquin and augmentin for utimonitor for sequelae. Dementia 96851278 F02.80 baseline dementia, with behaviors resolving to baseline sp reatment for uti and depakotese e abovecontt razodone 50 mg qhstrazodo ne 25 mg po ammelatoni n 5mg qhsgabapen tin 100 mg po pmcontinue supportive caremonito r for behaviorsp sych eval prn Depressive disorder 4918 9007 F33.8 pt with agitation and increased behaviors latelycont trazodone 25 mg po q am and cont 50 mg po qhspsych consult prndepakot e 250 mg cap q amvalproic acid level in one month from start Anemia 644716716 D64.9 anemia and labs improved since last set with slight GABRIELA anemiaNo s/s active bleedingpl avix and xareltolab s as abovecont multivitam in with ironiron qdMonitorc bc in 1 month 09/03/24 with improvemen t slight in h/h Recurrent falls 77106611 2 R29.6 pt with recurrent fall, last fall on 07/08 without injuriessu pportive caresafety precaution smonitor Benign pro static hyperplasia 793220050 N40.1 continue:t erazosin 5 mg qdflomax 0.4 mg po qhs added, ? need to continue ocean transportation intermediary as already on terazosinm onitor Paroxysmal atrial fibrillation 099099123 I48.0 contxarelt o 20 mg qdmetoprol ol 25 mg bidmonitor for rate control Coronary arteriosclerosis 64436471 I25.10 lipitor 40 mg qdplavix 75 mg qdmetoprol ol 25 mg bidmonitor for sx Essential hypertension 29272234 I10 currently stablecont inue metoprolol 25 mg bid (also on for rate control for AF)monitor for sx Constipation 29327294 K5 9.00 with hard large stoolscola ce to 100 mg po bidhouse regimen prnmonitor Chronic low back pain 27 7008844 M54.50 Currently comfortabl e on daily and prn ultram, diclofenac daily, HS gabapentin . PRN baclofen and APAPMonito r Acute non- ST segment elevation myocardial infarction 946365935 I21.4 contmetopr olol 25 mg bid as aboveatorv astatin 40 mg qdplavix 75 mg qdMonitor for chest pain, sobf/u with cards prn [id number] Chandrika Vasques NP [address] [address] 09/09/2024 14:07:35 09/13/2024 09:32:36 Urinary tract infectious disease 34538170 N39.0 completed levaquin and augmentin for uti in pastcontfl omax1/10dc nitrofuran toin 50 mg po daily as his UTI is not resolved and resistent to thisdue to behaviors and frequent urination will order cefuroxime 250 mg po bid x 10 days with probiotic and monitormon itor for sequelae. Dementia 47047210 F02.80 baseline dementia, with behaviors resolving to [...] level in one month from start Hypocalcemia 4390853 E83 .51 pt with low calcium level 7.71/10 start cholecalci ferol 800 iu admonitorc alcium level prn [id number] Chandrika Vasques NP [facility] [address] [address] 09/30/2024 13:41:43 10/03/2024 15:13:55 Dementia 52598756 F02.80 baseline dementia, with behaviors resolving to baseline sp treatment for uti and depakotese e abovecontt razodone 50 mg qhstrazodo ne 25 mg po ammelatoni n 5mg qhsgabapen tin 100 mg po pmcontinue supportive caremonito r for behaviorsp sych eval prn Nausea, vo miting and diarrhea 7272859 R11.2 pt with nausea, vomiting, diarrhea for a few days and seems resolving with residual nausea decreased appetite and fatigue todaycontd rinking fluids greater 2liters/da yzofran prnimmodiu m prnadvance diet as tolerateds upportive care and management monitorbmp and cbc 2/3 to monitor for elyte imbalances Fatigue 07352553 R53.83 seems fatigue related to gi virus however reports sob at times and illwill order cxr to ro pnamonitor as above [id number] Chandrika Vasques NP [facility] [address] [address] 10/03/2024 11:29:20 10/04/2024 11:47:10 Dementia 73020914 F02.80 baseline dementia, with behaviors resolving to baseline sp treatment for uti and depakotese e abovecontt razodone 50 mg qhstrazodo ne 25 mg po ammelatoni n 5mg qhsgabapen tin 100 mg po pmcontinue supportive caremonito r for behaviorsp sych eval prnweight stable, will monitor weekly Nausea, vo miting and diarrhea 9594713 R11.2 seems resolved, not eating and drinking at baseline and drypt with nausea, vomiting, diarrhea for a few days and not drinking enoughcont drinking fluids greater 2liters/da yzofran prnimmodiu m prnadvance diet as tolerateds upportive care and management monitorbmp and cbc 10/06 to monitor for elyte imbalances cepacol lozenge q 3 hours prn Pneumonia 096350820 J18. 9 see hpi2/2 cxr to ro pnadoxycyc line 100 mg po bid x 10daysadd probiotic 1 tab po bid x 12 dayscbc and bmp on onitor as abovemonit or need to repeat in 3-4 weeks Dehydration 28258274 E86 .0 seems decreased po intake for a week with pna after gi illness10/03 start ivf through periperal iv 2 liters NS @ 80monitor cbc and bmp 10/06 and hydration status Acute kidney injury 1466 9001 N17.9 see above [id number] Chandrika Vasques NP [facility] [address] 10/06/2024 15:53:01 10/07/2024 14:10:57 Pneumonia 369781542 J18.9 see hpi2/2 cxr to ro pnadoxycyc line 100 mg po bid x 10daysadd probiotic 1 tab po bid x 12 dayscbc and bmp on 10/10monito r as abovemonit or need to repeat in 3-4 weeks2/6 cont above Dehydration 32947068 E86 .0 gi virus resolving, however lips slightly dry, seems improved from a few days / start ivf through periperal iv 2 liters NS @ 802/6 start ivf ns @ 80cc/hr x 1 more liter and remove iv after finishedmo nitor cbc and bmp on 10/10 to eval Nausea, vo miting and diarrhea 0292839 R11.2 seems mostly resolved eating and drinking more todaycontd rinking fluids greater 2liters/da yzofran prnimmodiu m prnadvance diet as tolerateds upportive care and management monitorbmp and cbc 10/10 to monitor for elyte imbalances cepacol lozenge q 3 hours prn [id number] Chandrika Vasques NP [facility] [address] 11/04/2024 13:20:23 11/08/2024 09:24:24 Dehydration 26357450 E86.0 resolved Pneumonia 666047546 J18. 9 resolved which started on / doxycyclin e and probiotic, now completedd ue to notable improvemen t will not order cxr todaymonit or for need Dementia 14268833 F02.80 baseline dementia, with behaviors resolving to [...] level in one month from start Hypocalcemia 5427847 E83 .51 pt with low calcium level 7.7choleca lciferol 800 iu admonitorc alcium level prn Anemia 134392948 D64.9 anemia and labs improved since last set with slight GABRIELA anemiaNo s/s active bleedingpl avix and xareltolab s as abovecont multivitam in with ironiron qdMonitorl abs prn Recurrent falls 71781520 2 R29.6 pt with recurrent fall, last fall on 07/08 without injuriessu pportive caresafety precaution smonitor Benign pro static hyperplasia 918301871 N40.1 continue:t erazosin 5 mg qdflomax 0.4 mg po qhs added, ? need to continue ocean transportation intermediary as already on terazosinm onitor Paroxysmal atrial fibrillation 794518247 I48.0 contxarelt o 20 mg qdmetoprol ol 25 mg bidmonitor for rate control Coronary arteriosclerosis 25235444 I25.10 lipitor 40 mg qdplavix 75 mg qdmetoprol ol 25 mg bidmonitor for sx Essential hypertension 55631786 I10 currently stablecont inue metoprolol 25 mg bid (also on for rate control for AF)monitor for sx Chronic low back pain 27 3163684 M54.50 Currently comfortabl e on daily and prn ultram, diclofenac daily, HS gabapentin . PRN baclofen and APAPMonito r Acute non- ST segment elevation myocardial infarction 594315762 I21.4 contmetopr olol 25 mg bid as aboveatorv astatin 40 mg qdplavix 75 mg qdMonitor for chest pain, sobf/u with cards prn [id number] Chandrika Vasques NP [facility] [address] [address] 11/10/2024 10:27:23 11/14/2024 13:37:53 Dementia 81280252 F02.80 baseline dementia, with behaviors resolving to [...] level in one month from start Hypocalcemia 3811368 E83 .51 pt with low calcium level 7.7choleca lciferol 800 iu admonitorc alcium level prn Anemia 138103037 D64.9 anemia and labs improved since last set with slight GABRIELA anemiaNo s/s active bleedingpl avix and xareltolab s as abovecont multivitam in with ironiron qdMonitorl abs prn Recurrent falls 28041600 2 R29.6 pt with recurrent fall, last fall on 07/08 without injuriessu pportive caresafety precaution smonitor Benign pro static hyperplasia 627192916 N40.1 continue:t erazosin 5 mg qddc flomax 0.4 mg po qhs added, ? need, no urinary symptoms latelymoni tor Paroxysmal atrial fibrillation 041745369 I48.0 contxarelt o 20 mg qdmetoprol ol 25 mg bidmonitor for rate control Coronary arteriosclerosis 74997500 I25.10 lipitor 40 mg qdplavix 75 mg qdmetoprol ol 25 mg bidmonitor for sx Essential hypertension 62320819 I10 currently stablecont inuemetopr olol 25 mg bid (also on for rate control for AF)monitor for sx Chronic low back pain 27 5489220 M54.50 Currently comfortabl e on daily and prn ultram, diclofenac daily, HS gabapentin . PRN baclofen and APAPMonito r Acute non- ST segment elevation myocardial infarction 615843346 I21.4 contmetopr olol 25 mg bid as aboveatorv astatin 40 mg qdplavix 75 mg qdMonitor for chest pain, sobf/u with cards prn [id number] Chandrika Vasques NP [facility] [address] 11/14/2024 10:40:13 11/16/2024 11:51:48 Dementia 39736349 F02.80 baseline dementia, with behaviors resolving to [...] in one month from start Abnormal weight 28113534 R63.4 with approx 7 lbs weigth loss in last monthspeec h to re evaldietic jerri to eval for supplement sremeron 7.5 mg po qhs x 1 week, then 15 mg po qhsmonitor weights weekly [id number] LAYLA WILD, [employer]ALITATIVE FIELD COORDINATOR [facility] [address] [address] 11/26/2024 08:12:55 12/02/2024 13:50:30 Dementia 22452740 F02.80 baseline dementia, with behaviors resolving to [...] one month from start Aspiration pneumonia 422 441918 J69.0 Continue cefuroxime 500 mg BID for 4 days. End date 11/30/24.Con tinue ground mechanical /altered NDD2 and nectar thick liquid to minimized risk of aspiration .Monitor closely.Sp eech eval, PRN. Urinary tr act infectious disease 47207684 N39.0 Treated with ceftriaxon e, and currently is on cefuroxime .Continue until 11/30/24.Wbc stable.Mon itor s/s. Benign pro static hyperplasia 587789542 N40.1 continue:t erazosin 5 mg qddc flomax 0.4 mg po qhs added, ? need, no urinary symptoms latelymoni tor Acute kidney injury 1466 9001 N17.9 on 11/25/24, Bun 20, Cr 0.98.Encou rage PO fluid.Lucretia tor labs, CBC, CMP on Thursday. Hypocalcemia 2420388 E83 .51 pt with low calcium level 7.8 on 11/25.rajeev calciferol 800 iu admonitorc alcium level prn Anemia 777380138 D64.9 Hgb trending down.No s/s active bleedingpl avix and xareltolab s as abovecont multivitam in with iron.Added Vitamin C 500 mg daily.iron qdMonitorC BC, CMP, iron, ferritin and B12 check on Thursday. Recurrent falls 17686468 2 R29.6 pt with recurrent fall, last fall on 07/08 without injuriessu pportive caresafety precaution smonitor Paroxysmal atrial fibrillation 742842176 I48.0 contxarelt o 20 mg qdmetoprol ol 25 mg bidmonitor for rate control Coronary arteriosclerosis 06691786 I25.10 lipitor 40 mg qdplavix 75 mg qdmetoprol ol 25 mg bidmonitor for sx Essential hypertension 65837407 I10 currently stable, runs low side.Monit or BP daily for 7 days.metop rolol 25 mg bid (also on for rate control for AF)monitor for sx Chronic low back pain 27 1214572 M54.50 Currently comfortabl e on daily and prn ultram, diclofenac daily, HS gabapentin . PRN baclofen and APAPMonito r Acute non- ST segment elevation myocardial infarction 056174038 I21.4 contmetopr olol 25 mg bid as aboveatorv astatin 40 mg qdplavix 75 mg qdMonitor for chest pain, sobf/u with cards prn [id number] Chandrika Vasques NP [facility] [address] [address] 11/30/2024 11:29:59 12/02/2024 14:55:39 Anemia 420152388 D64.9 anemia and labs improved since last set with slight GABRIELA anemiaper staff having large black stool yesterday critical of hgb 6.6 with recent 7.8 hgb in hosp and appears to be losing bloodhe remains lethargic, pale, and fatigued with recent asp pna, and uti returned [place] [facility] [place] on 11/24 or 11/25will send to ER for transfusio n [id number] Chandrika Vasques NP [facility] [address] [address] 12/01/2024 12:37:07 12/05/2024 08:35:18 Anemia 424378422 D64.9 anemia and labs improved since last set with slight GABRIELA anemiaper staff having large black stool yesterday critical of hgb 6.6 with recent 7.8 hgb in hosp and appears to be losing bloodhe remains lethargic, pale, and fatigued with recent asp pna, and uti returned [place] [facility] [place] on 11/24 or returned here and has noted AAA felt not urgent for surgery but should fu with vascular outpt, no active bleeding foundwas given 1 unit RBCs in ERstart cbc and bmp on mondaystop xareltomon itor for s/s of bleeding/b lack stools/hyp otension Aspiration pneumonia 422 974511 J69.0 completed cefuroxime 500 mg BID for 4 days. End date 11/30/24.Con tinue ground mechanical /altered NDD2 and nectar thick liquid to minimized risk of aspiration .Monitor closely.Sp eech eval, PRN. Urinary tr act infectious disease 70089464 N39.0 Treated with ceftriaxon e, and currently just completed cefuroxime 4/2Wbc stable.Mon itor s/s. Dementia 39842506 F02.80 baseline dementia, with behaviors resolving to [...] month from start Benign pro static hyperplasia 998044811 N40.1 continue:t erazosin 5 mg qdmonitor Acute kidney injury 1466 9001 N17.9 on 11/25/24, Bun 20, Cr 0.98.Encou rage PO fluid.Lucretia tor labs, CBC, CMP on Thursday. Hypocalcemia 9986719 E83 .51 pt with low calcium level 7.8 on 11/25.rajeev calciferol 800 iu admonitorc alcium level prn Recurrent falls 73269791 2 R29.6 pt with recurrent fall, last fall on 07/08 without injuriessu pportive caresafety precaution smonitor Paroxysmal atrial fibrillation 349931183 I48.0 contstop xarelto 15 mg qd, discussed with family and anemia, was rec with last hospitaliz ationmetop rolol 25 mg bidmonitor for rate control Coronary arteriosclerosis 24530312 I25.10 lipitor 40 mg qdplavix 75 mg qdmetoprol ol 25 mg bidmonitor for sx Essential hypertension 98783473 I10 currently stablemeto prolol 25 mg bid (also on for rate control for AF)monitor for sx Chronic low back pain 27 4360277 M54.50 Currently comfortabl e on daily and prn ultram, diclofenac daily, HS gabapentin . PRN baclofen and APAPMonito r Acute non- ST segment elevation myocardial infarction 980638968 I21.4 contmetopr olol 25 mg bid as aboveatorv astatin 40 mg qdplavix 75 mg qdMonitor for chest pain, sobf/u with cards prn Abdominal aortic aneurysm without rupture 10674201 I71.40 12/01 returned here and has noted [...] surgical fu, nsg to try son again [id number] Chandrika Vasques NP [address] [address] 12/05/2024 10:18:17 12/12/2024 11:46:37 Abdominal aortic aneurysm without rupture 73408835 I71.40 has noted AAA 5.5 cm with [...] son againcbc and bmp on thursday Anemia 803819149 D64.9 anemia and labs improved since last set with slight GABRIELA anemiaper staff having large black stool yesterdayh e remains lethargic, pale, and fatigued with recent asp pna, and uti returned from [facility] [place] on 11/24 or 11/25has noted AAA felt not urgent for surgery but should fu with vascular outpt, no active bleeding foundwas given 1 unit RBCs in ER on bc and bmp thursdayr ecently stopped xarelto for high fall risk and anemia, risks discussed with hcpmonitor for s/s of bleeding/b lack stools/hyp otension Aspiration pneumonia 422 285372 J69.0 completed cefuroxime 500 mg BID for 4 days. End date 11/30/24.Con tinue ground mechanical /altered NDD2 and nectar thick liquid to minimized risk of aspiration .Monitor closely.Sp eech eval, PRN. , seems he is noncomplia nt with diet at times per staff12/05 repeat cxr today12/05 cbc and bmp wed Urinary tr act infectious disease 97268159 N39.0 Treated with ceftriaxon e, and currently just completed cefuroxime urinalysis with c & s todayMonit or s/s. Dementia 57536650 F02.80 baseline dementia, with behaviors resolving to [...] labs, CBC, CMP on Thursday. Recurrent falls 37575076 2 R29.6 pt with recurrent fall, last fall on 12/05 without injuriessu pportive caresafety precaution smonitor Paroxysmal atrial fibrillation 985932711 I48.0 contstop xarelto 15 mg qd, discussed with family and anemia, was rec with last hospitaliz ationmetop rolol 25 mg bidmonitor for rate control Coronary arteriosclerosis 05224935 I25.10 lipitor 40 mg qdplavix 75 mg qdmetoprol ol 25 mg bidmonitor for sx Essential hypertension 12047901 I10 currently boderline bpmetoprol ol 25 mg bid (also on for rate control for AF)monitor for sx Chronic low back pain 27 1336145 M54.50 Currently comfortabl e on daily and prn ultram, diclofenac daily, HS gabapentin . PRN baclofen and APAPMonito r Acute non- ST segment elevation myocardial infarction 280121309 I21.4 contmetopr olol 25 mg bid as aboveatorv astatin 40 mg qdplavix 75 mg qdno longer on xareltoMon itor for chest pain, sobf/u with cards prn [id number] STEPHANIE MYLES NP [address] [place] [address] 12/06/2024 12:16:54 12/12/2024 12:10:36 Recurrent falls [id number] R29.6 pt with recurrent falls, last fall on 12/05 without injuriessu pportive caresafety precaution smonitorPT OT eval and tx. prn Abdominal aortic aneurysm without rupture [id number] I71.40 has noted AAA 5.5 cm with [...] son againcbc and bmp on thursday Anemia [id number] D64.9 Hgb 7.5, s/p 1 U PRBCs 12[place] [facility] stool dark/black , but is on FeRepeatin g CBC in am.Off xarelto but still on plavixMoni tor Aspiration pneumonia [id number] J69.0 completed cefuroxime 500 mg BID on 11/30 for 4 days.Repea t CXR 12/05 with scattered RLL atelectasi s.Labs stable, repeat in amContinue O2 via NC to keep sats >90%, currently on 2L (? if anemia contributi ng to hypoxia)Co ntinue modified dietMonito r VS. LS, s/s aspiration , Urinary tr act infectious disease [id number] N39.0 Treated with ceftriaxon e, and currently just completed cefuroxime urinalysis with c & s - not obtained yetMonitor s/s.CBC, BMP in am Dementia [id number] F02.80 baseline dementia, with behaviors resolving to baseline sp treatment for uti and depakotese e abovecontt razodone 50 mg qhs and trazodone 25 mg po ammelatoni n 5mg qhsgabapen tin 100 mg po pmcontinue supportive caremonito r for behaviorsp sych eval prnweight stable, will monitor weekly Paroxysmal atrial fibrillation [id number] I48.0 Off xarelto, risk > benefitAdj usting metoprolol dose to 12.5 mg bid, hold for SBP< 100 (due to low BPs)Contin ue to monitor for rate control Essential hypertension 61592460 I10 BP on the low side.Curre ntly on metoprolol 25 mg bid (also for PAF)Plan -reduce dose to 12.5 mg bid, hold for SBP< 100monitor [id number] Chandrika Vasques, SUMANTH [facility] [address] [place] [address] 12/08/2024 09:27:49 12/12/2024 13:07:10 Recurrent falls [id number] R29.6 pt with recurrent falls, last fall on 12/05 without injurieshe has poor safety awareness and high fall risk latelysupp ortive caresafety precaution smonitorPT OT eval and tx. prn Anemia [id number] D64.9 Hgb 7.5, s/p 1 U PRBCs 12/01 [place] [facility] stool dark/black , but is on FeRepeatin g CBC in am as it is boderlinedc diclofenac 75 mg po qd, will increase gabapentin to bidincreas e protonix from 20 mg to 40 mg qddue to risk of bleeding will dc plavix risk vs benefit, discussed with Sandra joanna per last admit to hosp rec and high riskheme test stools x 3cbc and bmp in am, monitor need to send out for transfusio n Aspiration pneumonia 422 [id number] J69.0 completed cefuroxime 500 mg BID on 11/30 for 4 days.Repea t CXR 12/05 with scattered RLL atelectasi s.Continue O2 via NC to keep sats >90%, currently 93% this amContinue modified dietMonito r VS. LS, s/s aspiration ,12/08 IS with 10 reps at least tid x 10days Essential hypertension 35750393 I10 BP on the low side.metop rolol 25 mg bid (also for PAF) reduced to 12.5 mg bid, hold for SBP< 100 on 12/07orthost atics stablemoni tor Paroxysmal atrial fibrillation [id number] I48.0 Off xarelto, risk > benefit4/1 0 off plavix risk >benefitme toprolol dose to 12.5 mg bid, hold for SBP< 100 (due to low BPs) recently adjustedCo ntinue to monitor for rate control Urinary tr act infectious disease 61120079 N39.0 Treated with ceftriaxon e, and currently just completed cefuroxime respeat urinalysis with c & s - per hpi -culture pendingMon itor s/s.CBC, BMP in am Abdominal aortic aneurysm without rupture [id number] I71.40 has noted AAA 5.5 cm with [...] son againcbc and bmp in am Dementia [id number] F02.80 baseline dementia, with behaviors resolving to baseline sp treatment for uti and depakotese e abovecontt razodone 50 mg qhs and trazodone 25 mg po ammelatoni n 5mg qhs4/10 increase gabapentin from 100 mg po pm to bidcontinu e supportive caremonito r for behaviorsp sych eval prnweight stable, will monitor weekly Osteoarthritis [id number] M15.0 baseline OAsee below Chronic low back pain 27 [id number] M54.50 Currently comfortabl econt daily and prn ultram4/10 dc diclofenac dailyincre ase gabapentin to bidPRN baclofen and APAPMonito r [id number] Chandrika Vasques NP [address] [address] 12/09/2024 10:53:23 12/12/2024 13:12:54 Anemia 611557509 D64.9 Hgb 7.5, s/p 1 U PRBCs 4/3 [place] [facility] staff stool dark/black , but is on Fecbc improving today4/10d c diclofenac 75 mg po qd, will increase gabapentin to bidincreas e protonix from 20 mg to 40 mg qddue to risk of bleeding will dc plavix risk vs benefit, discussed with Sandra marshall per last admit to hosp rec and high riskheme test stools x agree with above, labs somewhat improved todaycbc and bmp on thursday, monitor need to send out for transfusio n Paroxysmal atrial fibrillation [id number] I48.0 Off xarelto, risk > benefit4/ 0 off plavix risk >benefitme toprolol dose to 12.5 mg bid, hold for SBP< 100 (due to low BPs) recently adjustedCo ntinue to monitor for rate control Essential hypertension 48259807 I10 BP on the low side.metop rolol 12.5 mg bid, hold for SBP< 100 [facility] Recurrent falls 45104607 2 R29.6 pt with recurrent falls, last fall on 12/05 without injurieshe has poor safety awareness and high fall risk latelysupp ortive caresafety precaution smonitorPT OT eval and tx. prn Aspiration pneumonia 422 129397 J69.0 completed cefuroxime 500 mg BID on 11/30 for 4 days.Repea t CXR 12/05 with scattered RLL atelectasi s.Continue O2 via NC to keep sats >90%, currently 93% this amContinue modified dietMonito r VS. LS, s/s aspiration ,contIS with 10 reps at least tid x 10days Abdominal aortic aneurysm without rupture [id number] I71.40 has noted AAA 5.5 cm with [...] son in agreeement son wants surgical fu, pending appt with dr watson and bmp in am Dementia 90926724 F02.80 baseline dementia, with behaviors resolving to baseline sp treatment for uti and depakotese e abovecontt razodone 50 mg qhs and trazodone 25 mg po ammelatoni n 5mg qhsgabapen tin from 100 mg po bidcontinu e supportive caremonito r for behaviorsp sych eval prnweight stable, will monitor weekly Health Concerns Section Related Observation LastModified by Organization Detai ls LastModified Time None Recorded Concern Status LastModified by Organization Details LastModified Time None Recorded Advance Directives Directive Y: Payers Encounter Date Sequence Insurance Name Policy Number Policy Robles Covered Member ID Robles Member ID Guarantor Name 12/01/2024 1 MEDICARE B-[place]: [facility] [employer] [id number] [employer] 12/05/2024 1 [place] [facility] [employer] [id number] All [employer]gr[employer] 12/06/2024 1 [place] [facility] [employer] [id number] 10 All [employer]gr[employer] 12/08/2024 1 [place] [facility] [employer] [id number] 10 All [employer]gr[employer] 12/09/2024 1 [place] [facility] [employer] [id number] 10 All [employer] Notes Date Note Type Note Provider Name and Address Organization Details Recorded Time 12/01/2024 text/html Pt is seen for a n acute rounding visit after ER evaluation and blood transfusion for critical hgb of 6.6 and black stools found to have a 5.5 cm AAA with mural thrombus and given 1 unit of RBCs and returned to this facility, without a post transfusion lab in dc summary. Recommendation from vascular surgeon felt outpatient elective repair may be looked into, however no urgent repair needed. Additionally a 1.9 cm right adrenal lesion. Colonic diverticulosis noted. right greater than left pulmonary opacities either atelectasis or pneumonia with small righ pleural effusion noted. Xarelto was rec to cont. CT scan did not show active bleeding and stool study negative for occult blood. On exam, Domitila is lying in bed in NAD. He states he is tired from being in the ER all night. His color has improved and less pale. He denies any shortness of breath, dizziness, or pain. Vitals stable. When asked today, if he would like to follow up with the vascular surgeon for the AAA repair he shakes his head and states I dont know . Domitila is invoked with son as decision maker. He is aware there is risk and he could get a better idea of the surgeon at the follow up if he would like his options. Son called x1 and no answer today. Will have nursing follow up with son and/or make appointment for now. Son contacted and would like vascular appt. Agrees to stop xarelto. Risks and benefits disussed. He will be in to address MOLST form soon. Son Darion requested this VIOLIN RESTORER inform daughter who is here visiting and all info relayed. of note:Domitila is an 84 yo male recently sent out for hypotension, resp failure, and confusion and re-admitted to [facility] after acute hospitalization with dx of asp pneumonia, UTI, metabolic encephalopathy and anemia from [facility] and returned on 11/25/24. Workup concluded:Acute metabolic encephalopathy secondary to UTI. [...] patient discharged with Xarelto and Plavix together. BIMS completed 12/15/23: score 6/15 refuses on 11/04/34morse: 11/04/24 high riskMOLST: full codeHCP invoked 11/03/22 PMH: dementia, PAF, CAD, history ischemic cardiomyopathy, history of CVA, hypertension, hyperlipidemia, AAA Chandrika Vasques, SUMANTH [address], [address], [place], [address], [facility] 12/01/2024 14:12:51 12/05/2024 text/html Pt is seen for a n acute visit today sp fall. PMH: dementia, PAF, CAD, history ischemic cardiomyopathy, history of CVA, hypertension, hyperlipidemia, AAA Pt is seen sp unwitnessed fall around 10am. He was self transferring and reports lowering himself to the floor. Vitals borderline 90/51, rr 20, sat 85% ra, no injuries noted and able to move all extremities. His vitals increased to 104/72, rr 20, 90% and hr 74 on recheck. He is pale this am and labs were drawn and pending.He denies any shortness of breath, dizziness, chest pain, abd pain, nausea, or pain. He is alert and confused with overall decline mentally with increased weakness lately and poor safety awareness. Nursing reported BP remained in the 90s and low 100s systolic, fluids encouraged, and 02 sat remained boderline 89-92% on ra. A urine, cxr, and o2 with duoneb ordered. labs reviewed. Last week a conversation with Domitila's son was had about MOLST, plan, and decline. Awaiting plan from him. of note: Domitila had an ER evaluation and blood transfusion for critical hgb of 6.6 and black stools found to have a 5.5 cm AAA with mural thrombus and given 1 unit of RBCs and returned to this facility, without a post transfusion lab in dc summary. Recommendation from vascular surgeon felt outpatient elective repair may be looked into, however no urgent repair needed. Additionally a 1.9 cm right adrenal lesion. Colonic diverticulosis noted. right greater than left pulmonary opacity's either atelectasis or pneumonia with small right pleural effusion noted. CT scan did not show active bleeding and stool study negative for occult blood. of note:Domitila is an 84 yo male recently sent out for hypotension, resp failure, and confusion and re-admitted to [facility] after acute hospitalization with dx of asp pneumonia, UTI, metabolic encephalopathy and anemia from [facility] and returned on 11/25/24. Workup concluded:Acute metabolic encephalopathy secondary to UTI. [...] patient discharged with Xarelto and Plavix together. BIMS completed 12/15/23: score 6/15 refuses on 11/04/34morse: 11/04/24 high riskMOLST: full codeHCP invoked 11/03/22 Chandrika Vasques NP [address], [address], [place], [address], [facility] 12/06/2024 08:34:41 12/06/2024 text/html Jason is seen to day for an acute visit. Following up in regards to a fall and weakness noted yesterday. Labs, UA, and CXR ordered. BP running low. On metoprolol 25 mg bid for PAF.CXR 12/05 = scattered right lung atelectasis12/05 labs = hgb 7.5, Chem stable. No UA results seen in [facility] EMR.Per EMR, intake has been good, >50%.PRN duonebs added yesterday.Currently wearing O2. Upon exam, Jason is resting in bed, easily arousable. Wearing O2, skin warm, dry, RR even, non labored. He thinks he is feeling OK this morning. Not very chatty, offers no other complaints.Case discussed with nsg., pt. is stable today, no new concerns. PMH: dementia, PAF, CAD, history ischemic cardiomyopathy, history of CVA, hypertension, hyperlipidemia, AAA BIMS completed 12/15/23: score 6/15 refuses on 11/04/34morse: 11/04/24 high riskMOLST: full codeHCP invoked 11/03/22 STEPHANIE MYLES NP [address], [address], [place], [address], [facility] 12/07/2024 11:53:28 12/08/2024 text/html Pt is seen today for [...] per OCT.12/07 labs show hgb/hct dropping to 03/21 which is boderline and he remains on [...] codeHCP invoked 11/03/22 Chandrika Vasques NP [address], [address], [place], [address], [facility] 12/08/2024 10:26:10 12/09/2024 text/html Pt is seen today for an acute visit. PMH: dementia, PAF, CAD, history ischemic cardiomyopathy, history of CVA, hypertension, hyperlipidemia, AAA Following up in regards to a anemia and low bps.Workup: UA, and CXR unremarkable. UA contaminated. Anemia: transfused with 1 unit last week. noted 12/07 labs show hgb/hct dropping to 7/ which is boderline and he remains on protonix, iron, and mult with iron. Due to boderline h/h and high fall risk will dc plavix, diclofenac, increase protonix and gabapentin, check cbc and bmp thursday, monitor heme test stools. carlin dc'd recently. family in agreement.H/H stable at 8.1, 25.5 Afib and bp: stable today, doing much better on decreased metoprolol Pain controlled with dc of diclofenac and increased gabapentin On exam, pt is seen sitting up in bed this am. vitals stable and reports he is okay. He is happy to hear the labs are a bit better and plan to recheck on thursday.He is in NAD, pale, and denies any pain, sob, dizziness, or other complaints. His breathing unlabored and lungs clear. He reports eating and drinking okay. BIMS completed 12/15/23: score 6/15 refuses on 11/04/34morse: 11/04/24 high riskMOLST: full codeHCP invoked 11/03/22 Chandrika Vasques NP [address], [address], [place], [address], [facility] 12/09/2024 11:11:08
--- OUTSIDE RECORDS SUMMARY | 2024-12-13 13:48 | XMS_ITS | Encounter Summary ---
Author Organization [facility] Address [address] [place] [address] Care Team Providers Care Methane Gas Collection System Operator Name Role Phone Cole Pete MD Primary Care Provider [phone] Encounter Details Date Type Department Care Team (Late st Contact Info) Description 08/04/2024 Lab Requisition [facility] - Main Lab [address] [facility] [place] [address] Cole Pete MD [address] [facility] [address] [facility] [phone] Essential (primary) hypertension Social History Tobacco Use [...] hypertension documented in this encounter Care Teams Methane Gas Collection System Operator Relationship Specialty Start Date End Date Cole Pete MD [address] [facility] [address] [place], [phone] PCP - General Family Medicine 07/31/24 documented as of this encounter
--- OUTSIDE RECORDS SUMMARY | 2024-12-13 13:48 | XMS_ITS | Encounter Summary ---
Author Organization [facility] Address [address] [place] [address] Care Team Providers Care Licensed Mortgage Loan Officer Name Role Phone Cole Pete MD Primary Care Provider [phone] Encounter Details Date Type Department Care Team (Late st Contact Info) Description 09/05/2024 Lab Requisition [facility] - Main Lab [address] [facility] [place] [address] Cole Pete MD [address] [place] [address] [address] [facility] [address] Essential (primary) hypertension; Encounter for [...] mcg/mL LAB CHEMISTRY METHOD 09/05/2024 9:21 AM [facility] Blood Venous blood specimen / Unknown Venipuncture / Unknown 09/05/2024 5:15 AM EST 09/05/2024 8:16 AM EST us Cole Pete MD LAB BLOOD ORDERABLES Final Resul t [facility] [address] [place] [address], [place] [phone] * (ABNORMAL) Basic metabolic panel (09/05/2024 5:15 AM EST) Sodium 140 133 - 145 mmol/L LAB CHEMISTRY METHOD 09/05/2024 9:13 AM [facility] Potassium 4.4 3.5 - 5.5 mmol/L LAB CHEMISTRY METHOD 09/05/2024 9:13 AM [facility] Chloride 111(H) 96 - 110 mmol/L LAB CHEMISTRY METHOD 09/05/2024 9:13 AM [facility] CO2 25 21 - 32 mmol/L LAB CHEMISTRY METHOD 09/05/2024 9:13 AM [facility] Anion Gap 4 3 - 11 LAB CHEMISTRY METHOD 09/05/2024 9:13 AM [facility] Glucose 86 70 - 100 mg/dL LAB CHEMISTRY METHOD 09/05/2024 9:13 AM [facility] BUN 17 5 - 25 mg/dL LAB CHEMISTRY METHOD 09/05/2024 9:13 AM [facility] Creatinine 1.43(H) 0.70 - 1.30 mg/dL LAB CHEMISTRY METHOD 09/05/2024 9:13 AM [facility] eGFR 48(L) >=60 mL/min/1. 73m2 LAB CHEMISTRY METHOD 09/05/2024 9:13 AM [facility] Comment:Calculation based on the??Chronic Kidney Disease Epidemiology Collaboration (CKD-EPI) equation refit??without adjustment for race. BUN/Creatinine Ratio 11.9 LAB CHEMISTRY METHOD 09/05/2024 9:13 AM [facility] Calcium 7.8(L) 8.5 - 10.5 mg/dL LAB CHEMISTRY METHOD 09/05/2024 9:13 AM [facility] Blood Venous blood specimen / Unknown Venipuncture / Unknown 09/05/2024 5:15 AM EST 09/05/2024 8:16 AM EST us Cole Pete MD LAB BLOOD ORDERABLES Final Resul t [facility] [address] [place] [address], [place] [phone] * (ABNORMAL) Complete blood count (09/05/2024 5:15 AM EST) WBC 11.3(H) 4.8 - 10.8 K/mcL LAB HEMETOLOGY METHOD 09/05/2024 8:49 AM [facility] RBC 2.60(L) 4.50 - 5.50 M/mcL LAB HEMETOLOGY METHOD 09/05/2024 8:49 AM [facility] Hemoglobin 7.6(L) 13.5 - 17.5 g/dL LAB HEMETOLOGY METHOD 09/05/2024 8:49 AM [facility] Hematocrit 22.9(L) 42.0 - 54.0 % LAB HEMETOLOGY METHOD 09/05/2024 8:49 AM [facility] MCV 89.5 79.0 - 98.0 FL LAB HEMETOLOGY METHOD 09/05/2024 8:49 AM [facility] MCH 29.7 27.0 - 32.0 pcg LAB HEMETOLOGY METHOD 09/05/2024 8:49 AM [facility] MCHC 33.2 32.0 - 37.0 g/dL LAB HEMETOLOGY METHOD 09/05/2024 8:49 AM EST [facility] RDW 15.4(H) 11.0 - 15.0 % LAB HEMETOLOGY METHOD 09/05/2024 8:49 AM [facility] Platelets 274 130 - 400 K/mcL LAB HEMETOLOGY METHOD 09/05/2024 8:49 AM EST [facility] MPV 10.4 7.0 - 11.0 FL LAB HEMETOLOGY METHOD 09/05/2024 8:49 AM EST [facility] NRBC 0.0 <1.0 % LAB HEMETOLOGY METHOD 09/05/2024 8:49 AM [facility] NRBC Absolute 0.00 <0.10 K/mcL LAB HEMETOLOGY METHOD 09/05/2024 8:49 AM [facility] Blood Venous blood specimen / Unknown Venipuncture / Unknown 09/05/2024 5:15 AM EST 09/05/2024 8:16 AM EST us Cole Pete MD LAB BLOOD ORDERABLES Final Resul t [facility] [address] [place] [address], documented in this encounter Visit Diagnoses Diagnosis Essential (primary) hypertension Unspecified essential hypertension Encounter for therapeutic drug level monitoring documented in this encounter Care Teams Licensed Mortgage Loan Officer Relationship Specialty Start Date End Date Cole Pete MD [address] [place] [address], [phone] PCP - General Family Medicine 07/31/24 documented as of this encounter
--- OUTSIDE RECORDS SUMMARY | 2024-12-13 13:48 | XMS_ITS | Encounter Summary ---
Author Organization [facility] Address [address] [place] [address] Care Team Providers Care Cement Sprayer Helper Name Role Phone Cole Pete MD Primary Care Provider [phone] Encounter Details Date Type Department Care Team (Late st Contact Info) Description 12/04/2024 Lab Requisition [facility] - Main Lab [address] [place] [address] Cole Pete MD [address] [place] [address] [address] [facility] [address] Essential (primary) hypertension Social History Tobacco [...] Associated Diagnosis Comments COMPLETE BLOOD COUNT Routine 12/05/2024 6:13 AM EDT Essential (primary) hypertension BASIC METABOLIC PANEL Routine 12/05/2024 6:13 AM EDT Essential (primary) hypertension documented in this encounter Results * (ABNORMAL) Basic metabolic panel (12/05/2024 6:13 AM EDT) Sodium 141 133 - 145 mmol/L LAB CHEMISTRY METHOD 12/05/2024 12:49 PM EDT [facility] Potassium 4.5 3.5 - 5.5 mmol/L LAB CHEMISTRY METHOD 12/05/2024 12:49 PM EDT [facility] Chloride 109 96 - 110 mmol/L LAB CHEMISTRY METHOD 12/05/2024 12:49 PM [facility] CO2 27 21 - 32 mmol/L LAB CHEMISTRY METHOD 12/05/2024 12:49 PM [facility] Anion Gap 5 3 - 11 LAB CHEMISTRY METHOD 12/05/2024 12:49 PM [facility] Glucose 75 70 - 100 mg/dL LAB CHEMISTRY METHOD 12/05/2024 12:49 PM [facility] BUN 21 5 - 25 mg/dL LAB CHEMISTRY METHOD 12/05/2024 12:49 PM [facility] Creatinine 1.19 0.70 - 1.30 mg/dL LAB CHEMISTRY METHOD 12/05/2024 12:49 PM [facility] eGFR 60 >=60 mL/min/1. 73m2 LAB CHEMISTRY METHOD 12/05/2024 12:49 PM [facility] Comment:Calculation based on the??Chronic Kidney Disease Epidemiology Collaboration (CKD-EPI) equation refit??without adjustment for race. BUN/Creatinine Ratio 17.6 LAB CHEMISTRY METHOD 12/05/2024 12:49 PM [facility] Calcium 7.8(L) 8.5 - 10.5 mg/dL LAB CHEMISTRY METHOD 12/05/2024 12:49 PM [facility] Blood Venous blood specimen / Unknown Venipuncture / Unknown 12/05/2024 6:13 AM EDT 12/05/2024 11:10 AM EDT us Cole Pete MD LAB BLOOD ORDERABLES Final Resul t [facility] [address] [place] [address], * (ABNORMAL) Complete blood count (12/05/2024 6:13 AM EDT) Pathologist [facility] WBC 8.2 4.8 - 10.8 K/mcL LAB HEMETOLOGY METHOD 12/05/2024 12:47 PM [facility] RBC 2.50(L) 4.50 - 5.50 M/mcL LAB HEMETOLOGY METHOD 12/05/2024 12:47 PM [facility] Hemoglobin 7.5(L) 13.5 - 17.5 g/dL LAB HEMETOLOGY METHOD 12/05/2024 12:47 PM [facility] Hematocrit 23.0(L) 42.0 - 54.0 % LAB HEMETOLOGY METHOD 12/05/2024 12:47 PM [facility] MCV 92.0 79.0 - 98.0 FL LAB HEMETOLOGY METHOD 12/05/2024 12:47 PM [facility] MCH 30.0 27.0 - 32.0 pcg LAB HEMETOLOGY METHOD 12/05/2024 12:47 PM [facility] MCHC 32.6 32.0 - 37.0 g/dL LAB HEMETOLOGY METHOD 12/05/2024 12:47 PM [facility] RDW 17.9(H) 11.0 - 15.0 % LAB HEMETOLOGY METHOD 12/05/2024 12:47 PM [facility] Platelets 387 130 - 400 K/mcL LAB HEMETOLOGY METHOD 12/05/2024 12:47 PM [facility] MPV 10.4 7.0 - 11.0 FL LAB HEMETOLOGY METHOD 12/05/2024 12:47 PM [facility] NRBC 0.0 <1.0 % LAB HEMETOLOGY METHOD 12/05/2024 12:47 PM [facility] NRBC Absolute 0.00 <0.10 K/mcL LAB HEMETOLOGY METHOD 12/05/2024 12:47 PM EDT [facility] Blood Venous blood specimen / Unknown Venipuncture / Unknown 12/05/2024 6:13 AM EDT 12/05/2024 11:10 AM EDT us Cole Pete MD LAB BLOOD ORDERABLES Final Resul t [facility] [address] [place] [address], documented in this encounter Visit Diagnoses Diagnosis Essential (primary) hypertension Unspecified essential hypertension documented in this encounter Care Teams Cement Sprayer Helper Relationship Specialty Start Date End Date Cole Pete MD [address] [place] [address], [phone] PCP - General Family Medicine 07/31/24 documented as of this encounter
--- OUTSIDE RECORDS SUMMARY | 2024-12-13 13:48 | XMS_ITS | Encounter Summary ---
Author Organization [facility] Address [address] [place] [address] Care Team Providers Care Coil Repair Technician Name Role Phone Cole Pete MD Primary Care Provider [phone] Encounter Details Date Type Department Care Team (Late st Contact Info) Description 11/28/2024 Lab Requisition [facility] - Main Lab [address] [facility] [place] [address] Cole Pete MD 38 [facility] 204 [facility] [phone] Anemia, unspecified Social History Tobacco Use [...] LAB CHEMISTRY METHOD 11/28/2024 11:59 AM EDT [facility] TIBC 98(L) 250 - 450 mcg/dL LAB CHEMISTRY METHOD 11/28/2024 11:59 AM EDT [facility] Iron Saturation 41 20 - 50 % LAB CHEMISTRY METHOD 11/28/2024 11:59 AM EDT [facility] Blood Venous blood specimen / Unknown Venipuncture / Unknown 11/28/2024 5:29 AM EDT 11/28/2024 10:49 AM EDT Cole Pete MD LAB BLOOD ORDERABLES Final Resul t Performing Organization Address City/[facility]/ZIP Co de Phone Number [facility] [address] [place] [address], [place] [phone] * Vitamin B12 (11/28/2024 5:29 AM EDT) Vitamin B-12 479 250 - 900 pcg/mL LAB CHEMISTRY METHOD 11/28/2024 12:21 PM EDT [facility] Blood Venous blood specimen / Unknown Venipuncture / Unknown 11/28/2024 5:29 AM EDT 11/28/2024 10:49 AM EDT Cole Pete MD LAB BLOOD ORDERABLES Final Resul t [facility] [address] [place] [address], * Ferritin (11/28/2024 5:29 AM EDT) Ferritin 219 26 - 388 ng/mL LAB CHEMISTRY METHOD 11/28/2024 12:21 PM EDT [facility] Blood Venous blood specimen / Unknown Venipuncture / Unknown 11/28/2024 5:29 AM EDT 11/28/2024 10:49 AM EDT us Cole Pete MD LAB BLOOD ORDERABLES Final Resul t [facility] [address] [place] [address], [place] [phone] * (ABNORMAL) Comprehensive metabolic panel (11/28/2024 5:29 AM EDT) Sodium 141 133 - 145 mmol/L LAB CHEMISTRY METHOD 11/28/2024 2:44 PM [facility] Potassium 3.9 3.5 - 5.5 mmol/L LAB CHEMISTRY METHOD 11/28/2024 2:44 PM [facility] Chloride 110 96 - 110 mmol/L LAB CHEMISTRY METHOD 11/28/2024 2:44 PM [facility] CO2 26 21 - 32 mmol/L LAB CHEMISTRY METHOD 11/28/2024 2:44 PM [facility] Anion Gap 5 3 - 11 LAB CHEMISTRY METHOD 11/28/2024 2:44 PM [facility] Glucose 78 70 - 100 mg/dL LAB CHEMISTRY METHOD 11/28/2024 2:44 PM [facility] BUN 17 5 - 25 mg/dL LAB CHEMISTRY METHOD 11/28/2024 2:44 PM T [facility] Creatinine 1.07 0.70 - 1.30 mg/dL LAB CHEMISTRY METHOD 11/28/2024 2:44 PM [facility] eGFR 68 >=60 mL/min/1. 73m2 LAB CHEMISTRY METHOD 11/28/2024 2:44 PM [facility] Comment:Calculation based on the??Chronic Kidney Disease Epidemiology Collaboration (CKD-EPI) equation refit??without adjustment for race. BUN/Creatinine Ratio 15.9 LAB CHEMISTRY METHOD 11/28/2024 2:44 PM EDT [facility] Calcium 7.3(L) 8.5 - 10.5 mg/dL LAB CHEMISTRY METHOD 11/28/2024 2:44 PM EDT [facility] AST (SGOT) 10 10 - 42 unit/L LAB CHEMISTRY METHOD 11/28/2024 2:44 PM EDT [facility] ALT (SGPT) 7(L) 10 - 60 unit/L LAB CHEMISTRY METHOD 11/28/2024 2:44 PM EDT [facility] Alkaline Phosphatase 51 42 - 121 unit/L LAB CHEMISTRY METHOD 11/28/2024 2:44 PM EDT [facility] Total Protein 4.7(L) 6.0 - 8.0 g/dL LAB CHEMISTRY METHOD 11/28/2024 2:44 PM EDT [facility] Albumin 1.7(L) 3.2 - 5.0 g/dL LAB CHEMISTRY METHOD 11/28/2024 2:44 PM EDT [facility] Total Bilirubin 0.2 0.0 - 1.4 mg/dL LAB CHEMISTRY METHOD 11/28/2024 2:44 PM EDT [facility] Blood Venous blood specimen / Unknown Venipuncture / Unknown 11/28/2024 5:29 AM EDT 11/28/2024 10:49 AM EDT us Cole Pete MD LAB BLOOD ORDERABLES Final Resul t [facility] [address] [place] [address], * (ABNORMAL) Complete blood count (11/28/2024 5:29 AM EDT) WBC 10.6 4.8 - 10.8 K/mcL LAB HEMETOLOGY METHOD 11/28/2024 11:50 AM EDT [facility] RBC 2.20(L) 4.50 - 5.50 M/mcL LAB HEMETOLOGY METHOD 11/28/2024 11:50 AM [facility] Hemoglobin 6.6(L) 13.5 - 17.5 g/dL LAB HEMETOLOGY METHOD 11/28/2024 11:50 AM [facility] Hematocrit 20.2(L) 42.0 - 54.0 % LAB HEMETOLOGY METHOD 11/28/2024 11:50 AM [facility] MCV 90.2 79.0 - 98.0 FL LAB HEMETOLOGY METHOD 11/28/2024 11:50 AM [facility] MCH 29.5 27.0 - 32.0 pcg LAB HEMETOLOGY METHOD 11/28/2024 11:50 AM [facility] MCHC 32.7 32.0 - 37.0 g/dL LAB HEMETOLOGY METHOD 11/28/2024 11:50 AM [facility] RDW 17.8(H) 11.0 - 15.0 % LAB HEMETOLOGY METHOD 11/28/2024 11:50 AM [facility] Platelets 260 130 - 400 K/mcL LAB HEMETOLOGY METHOD 11/28/2024 11:50 AM [facility] MPV 10.5 7.0 - 11.0 FL LAB HEMETOLOGY METHOD 11/28/2024 11:50 AM [facility] NRBC 0.0 <1.0 % LAB HEMETOLOGY METHOD 11/28/2024 11:50 AM [facility] NRBC Absolute 0.00 <0.10 K/mcL LAB HEMETOLOGY METHOD 11/28/2024 11:50 AM [facility] Blood Venous blood specimen / Unknown Venipuncture / Unknown 11/28/2024 5:29 AM EDT 11/28/2024 10:49 AM EDT us Cole Pete MD LAB BLOOD ORDERABLES Final Resul t [facility] [address] [place] [address], [place] [phone] documented in this encounter Visit Diagnoses Diagnosis Anemia, unspecified documented in this encounter Care Teams Coil Repair Technician Relationship Specialty Start Date End Date Cole Pete MD [address] [place] [address] [address] [place], [phone] PCP - General Family Medicine 07/31/24 documented as of this encounter
--- OUTSIDE RECORDS SUMMARY | 2024-12-13 13:48 | XMS_ITS | Clinical Summary ---
Author Organization [address] Address [address] [place] [address] Phone Care Team Providers Care Printed [employer] Boards Beveler Name Role Phone Cole Pete MD Primary Care Provider [phone] Encounters Date Type Department Care Team Description 12/09/2024 Lab Requisition [facility] [address] [place] [phone] Cole Pete MD Unspecified atrial fibrillation (CMS/HCC V24, CMS/HCC V28); Anemia, unspecified 12/07/2024 Lab Requisition [facility] [address] [place] [phone] Cole Pete MD Essential (primary) hypertension; Urinary tract infection, site not specified 12/06/2024 Lab Requisition [facility] [address] [place] [phone] Cole Pete MD Unspecified atrial fibrillation (CMS/HCC V24, CMS/HCC V28) 12/04/2024 Lab Requisition [facility] [address] [place] [phone] Cole Pete MD Essential (primary) hypertension 11/28/2024 Lab Requisition [facility] [address] [place] [phone] Cole Pete MD Anemia, unspecified 10/07/2024 Lab Requisition [facility] [address] [place] [phone] Cole Pete MD Paroxysmal atrial fibrillation ([facility] [place]24, [facility] V28); Hyperkalemia; Unspecified dementia, unspecified severity, without behavioral disturbance, psychotic disturbance, mood disturbance, and anxiety ([facility] [place]24, [facility] V28) 10/05/2024 Lab Requisition [facility] 299 [facility] [place] [phone] Cole Pete MD Unspecified atrial fibrillation ([facility] V24, [facility] V28) 10/03/2024 Lab Requisition [facility] [address] [facility] [place] [address] Cole Pete MD Muscle weakness (generalized) from Last 3 Months Social History Tobacco [...] 75+ series) 2014 COVID-19 Vaccine (1 - season) 2024 Cholesterol Screening (Lipid Panel) 07/26/2024 Depression Screening 07/26/2024 Falls Risk Assessment 07/26/2024 Medicare Annual Wellness Visit 07/26/2024 Social Influencers of Health Screening 07/26/2024 Influenza Vaccine (Season Ended) 2025 Hypertension/CHF/CAD Annual BMP Blood Test 12/09/2025 12/09/2024, 12/07/2024, 12/05/2024, Additional history exists HIB Vaccines Aged Out [...] age to complete this topic Meningococcal B Vaccine Aged Out No l onger eligible based on patient's age to complete this topic RSV Immunization Patients Under 20 months Aged Out No longer eligible based on patient's age to complete this topic Varicella Vaccines Aged Out No longer eligible based on patient's age to complete this topic Procedures Procedure Name Priority Date/Time Associated Diagnosis Comments BASIC METABOLIC PANEL Routine 12/09/2024 8:10 AM EDT Unspecified atrial fibrillation (CMS/HCC V24, CMS/HCC V28) Anemia, unspecified COMPLETE BLOOD COUNT Routine 12/09/2024 8:10 AM EDT Unspecified atrial fibrillation (CMS/HCC V24, CMS/HCC V28) Anemia, unspecified BASIC METABOLIC PANEL Routine 12/07/2024 6:39 AM EDT Unspecified atrial fibrillation (CMS/HCC) COMPLETE BLOOD COUNT Routine 12/07/2024 6:39 AM EDT Unspecified atrial fibrillation (CMS/HCC) SHARMA URINE CULTURE TUBE Routine 12/06/2024 1:50 PM EDT Essential (primary) hypertension Urinary tract infection, site not specified URINALYSIS WITH REFLEX MICROSCOPIC AND CULTURE Routine 12/06/2024 1:50 PM EDT Essential (primary) hypertension Urinary tract infection, site not specified URINALYSIS WITH REFLEX MICROSCOPIC AND CULTURE Routine 12/06/2024 1:50 PM EDT Essential (primary) hypertension Urinary tract infection, site not specified CULTURE URINE Routine 12/06/2024 1:50 PM EDT Essential (primary) hypertension Urinary tract infection, site not specified BASIC METABOLIC PANEL Routine 12/05/2024 6:13 AM EDT Essential (primary) hypertension COMPLETE BLOOD COUNT Routine 12/05/2024 6:13 AM EDT Essential (primary) hypertension IRON AND TIBC Routine 11/28/2024 5:29 AM [...] 10/03/2024 6:54 AM EST Muscle weakness (generalized) from Last 3 Months Results * (ABNORMAL) Complete blood count (12/09/2024 8:10 AM EDT) Only the most recent of7 resultswithin the time period is included. [facility] Signature WBC 7.4 4.8 - 10.8 K/mcL LAB HEMETOLOGY METHOD 12/09/2024 10:46 AM [facility] RBC 2.80(L) 4.50 - 5.50 M/mcL LAB HEMETOLOGY METHOD 12/09/2024 10:46 AM [facility] Hemoglobin 8.1(L) 13.5 - 17.5 g/dL LAB HEMETOLOGY METHOD 12/09/2024 10:46 AM [facility] Hematocrit 25.5(L) 42.0 - 54.0 % LAB HEMETOLOGY METHOD 12/09/2024 10:46 AM [facility] MCV 92.4 79.0 - 98.0 FL LAB HEMETOLOGY METHOD 12/09/2024 10:46 AM [facility] MCH 29.3 27.0 - 32.0 pcg LAB HEMETOLOGY METHOD 12/09/2024 10:46 AM [facility] MCHC 31.8(L) 32.0 - 37.0 g/dL LAB HEMETOLOGY METHOD 12/09/2024 10:46 AM [facility] RDW 17.2(H) 11.0 - 15.0 % LAB HEMETOLOGY METHOD 12/09/2024 10:46 AM [facility] Platelets 387 130 - 400 K/mcL LAB HEMETOLOGY METHOD 12/09/2024 10:46 AM [facility] MPV 10.4 7.0 - 11.0 FL LAB HEMETOLOGY METHOD 12/09/2024 10:46 AM [facility] NRBC 0.0 <1.0 % LAB HEMETOLOGY METHOD 12/09/2024 10:46 AM [facility] NRBC Absolute 0.00 <0.10 K/mcL LAB HEMETOLOGY METHOD 12/09/2024 10:46 AM [facility] Blood Venous blood specimen / Unknown Venipuncture / Unknown 12/09/2024 8:10 AM EDT 12/09/2024 10:34 AM EDT us Cole Pete MD LAB BLOOD ORDERABLES Final Resul t [facility] [address] [place] [address], [place] [phone] * (ABNORMAL) Basic metabolic panel (12/09/2024 8:10 AM EDT) Only the most recent of6 resultswithin the time period is included. Sodium 138 133 - 145 mmol/L LAB CHEMISTRY METHOD 12/09/2024 11:15 AM [facility] Potassium 4.9 3.5 - 5.5 mmol/L LAB CHEMISTRY METHOD 12/09/2024 11:15 AM [facility] Chloride 105 96 - 110 mmol/L LAB CHEMISTRY METHOD 12/09/2024 11:15 AM [facility] CO2 28 21 - 32 mmol/L LAB CHEMISTRY METHOD 12/09/2024 11:15 AM [facility] Anion Gap 5 3 - 11 LAB CHEMISTRY METHOD 12/09/2024 11:15 AM [facility] Glucose 86 70 - 100 mg/dL LAB CHEMISTRY METHOD 12/09/2024 11:15 AM [facility] BUN 13 5 - 25 mg/dL LAB CHEMISTRY METHOD 12/09/2024 11:15 AM [facility] Creatinine 0.99 0.70 - 1.30 mg/dL LAB CHEMISTRY METHOD 12/09/2024 11:15 AM [facility] eGFR 75 >=60 mL/min/1. 73m2 LAB CHEMISTRY METHOD 12/09/2024 11:15 AM EDT [facility] Comment:Calculation based on the??Chronic Kidney Disease Epidemiology Collaboration (CKD-EPI) equation refit??without adjustment for race. BUN/Creatinine Ratio 13.1 LAB CHEMISTRY METHOD 12/09/2024 11:15 AM EDT [facility] Calcium 8.1(L) 8.5 - 10.5 mg/dL LAB CHEMISTRY METHOD 12/09/2024 11:15 AM EDT [facility] Blood Venous blood specimen / Unknown Venipuncture / Unknown 12/09/2024 8:10 AM EDT 12/09/2024 10:34 AM EDT us Cole Pete MD LAB BLOOD ORDERABLES Final Resul t [facility] [address] [place] [address], [place] [phone] * (ABNORMAL) Urinalysis with reflex microscopic and culture (12/06/2024 1:50 PM EDT) Specific [place] Urine 1.020 1.003 - 1.030 LAB URINALYSIS - AUTOMATED METHOD 12/07/2024 12:45 PM T [facility] pH, Urine 8.0 5.0 - 8.0 pH LAB URINALYSIS - AUTOMATED METHOD 12/07/2024 12:45 PM EDT [facility] Leukocytes, Urine Small(A) Negative LAB URINALYSIS - AUTOMATED METHOD 12/07/2024 12:45 PM T [facility] Nitrite, Urine Negative Negative LAB URINALYSIS - AUTOMATED METHOD 12/07/2024 12:45 PM EDT [facility] Protein, Urine 30(A) <=Trace mg/dL LAB URINALYSIS - AUTOMATED METHOD 12/07/2024 12:45 PM EDT [facility] Glucose, Urine Negative Negative mg/dL LAB URINALYSIS - AUTOMATED METHOD 12/07/2024 12:45 PM [facility] Ketones, Urine Trace(A) Negative mg/dL LAB URINALYSIS - AUTOMATED METHOD 12/07/2024 12:45 PM [facility] Urobilinogen , Urine 0.2 0.2 - 1.0 mg/dL LAB URINALYSIS - AUTOMATED METHOD 12/07/2024 12:45 PM [facility] Bilirubin, Urine Negative Negative LAB URINALYSIS - AUTOMATED METHOD 12/07/2024 12:45 PM [facility] Blood, Urine Small(A) Negative LAB URINALYSIS - AUTOMATED METHOD 12/07/2024 12:45 PM [facility] RBC, Urine 27.5(H) 0 - 4 /HPF LAB URINALYSIS - AUTOMATED METHOD 12/07/2024 12:45 PM [facility] WBC, Urine 16.1(H) 0 - 4 /HPF LAB URINALYSIS - AUTOMATED METHOD 12/07/2024 12:45 PM [facility] Squamous Epithelial, Urine 80(H) 0 - 60 /LPF LAB URINALYSIS - AUTOMATED METHOD 12/07/2024 12:45 PM [facility] Crystals, Urine Moderate Amorphous Phosphate crystals. /LPF 12/07/2024 12:45 PM [facility] Bacteria, Urine Few(A) Negative /HPF LAB URINALYSIS - AUTOMATED METHOD 12/07/2024 12:45 PM [facility] Hyaline Casts, Urine 2.8 0 - 3 /LPF LAB URINALYSIS - AUTOMATED METHOD 12/07/2024 12:45 PM [facility] Urine Urine specimen obtained by clean catch procedure / Unknown Non-blood Collection / Unknown 12/06/2024 1:50 PM EDT 12/07/2024 11:11 AM EDT us Cole Pete MD LAB URINE ORDERABLES Final Resul t Performing Organization Address City/[facility]/ZIP Co de Phone Number [facility] [address] [place] [address], * Sharma urine culture tube (12/06/2024 1:50 PM EDT) Extra Tube Hold for add-ons. 12/07/2024 1:01 PM EDT [facility] Comment:Auto resulted. Urine Urine specimen obtained by clean catch procedure / Unknown Non-blood Collection / Unknown 12/06/2024 1:50 PM EDT 12/07/2024 11:11 AM EDT Cole Pete MD LAB URINE ORDERABLES Final Resul t Performing Organization Address [facility] Co de Phone Number [facility] [address] [place] [address], * Culture urine (12/06/2024 1:50 PM EDT) Pathologist [facility] Culture, Urine 10,000-49,000 CFU/mL Mixed bacterial morphotypes present suggestive of possible contamination during collection. Suggest appropriate recollection if clinically indicated. 12/08/2024 10:21 AM EDT [facility] Urine Urine specimen obtained by clean catch procedure / Unknown Non-blood Collection / Unknown 12/06/2024 1:50 PM EDT 12/07/2024 12:45 PM EDT Cole Pete MD LAB MICROBIOLOGY - GENERAL ORDER NANCY Final Result Performing Organization Address City/[facility]/ZIP Co de Phone Number [facility] [address] [place] [address], * (ABNORMAL) Iron and TIBC (11/28/2024 5:29 AM EDT) Iron 40(L) 50 - 160 mcg/dL LAB CHEMISTRY METHOD 11/28/2024 11:59 AM EDT [facility] TIBC 98(L) 250 - 450 mcg/dL LAB CHEMISTRY METHOD 11/28/2024 11:59 AM EDT [facility] Iron Saturation 41 20 - 50 % LAB CHEMISTRY METHOD 11/28/2024 11:59 AM EDT [facility] Blood Venous blood specimen / Unknown Venipuncture / Unknown 11/28/2024 5:29 AM EDT 11/28/2024 10:49 AM EDT Cole Pete MD LAB BLOOD ORDERABLES Final Resul t [facility] [address] [place] [address], [place] [phone] * Ferritin (11/28/2024 5:29 AM EDT) Ferritin 219 26 - 388 ng/mL LAB CHEMISTRY METHOD 11/28/2024 12:21 PM EDT [facility] Blood Venous blood specimen / Unknown Venipuncture / Unknown 11/28/2024 5:29 AM EDT 11/28/2024 10:49 AM EDT Cole Pete MD LAB BLOOD ORDERABLES Final Resul t [facility] [address] [place] [address], [place] [phone] * Vitamin B12 (11/28/2024 5:29 AM EDT) Vitamin B-12 479 250 - 900 pcg/mL LAB CHEMISTRY METHOD 11/28/2024 12:21 PM EDT [facility] Blood Venous blood specimen / Unknown Venipuncture / Unknown 11/28/2024 5:29 AM EDT 11/28/2024 10:49 AM EDT us Cole Pete MD LAB BLOOD ORDERABLES Final Resul t [facility] [address] [place] [address], [place] [phone] * (ABNORMAL) Comprehensive metabolic panel (11/28/2024 5:29 AM EDT) Sodium 141 133 - 145 mmol/L LAB CHEMISTRY METHOD 11/28/2024 2:44 PM EDT [facility] Potassium 3.9 3.5 - 5.5 mmol/L LAB CHEMISTRY METHOD 11/28/2024 2:44 PM [facility] Chloride 110 96 - 110 mmol/L LAB CHEMISTRY METHOD 11/28/2024 2:44 PM [facility] CO2 26 21 - 32 mmol/L LAB CHEMISTRY METHOD 11/28/2024 2:44 PM [facility] Anion Gap 5 3 - 11 LAB CHEMISTRY METHOD 11/28/2024 2:44 PM [facility] Glucose 78 70 - 100 mg/dL LAB CHEMISTRY METHOD 11/28/2024 2:44 PM [facility] BUN 17 5 - 25 mg/dL LAB CHEMISTRY METHOD 11/28/2024 2:44 PM [facility] Creatinine 1.07 0.70 - 1.30 mg/dL LAB CHEMISTRY METHOD 11/28/2024 2:44 PM [facility] eGFR 68 >=60 mL/min/1. 73m2 LAB CHEMISTRY METHOD 11/28/2024 2:44 PM [facility] Comment:Calculation based on the??Chronic Kidney Disease Epidemiology Collaboration (CKD-EPI) equation refit??without adjustment for race. BUN/Creatinine Ratio 15.9 LAB CHEMISTRY METHOD 11/28/2024 2:44 PM [facility] Calcium 7.3(L) 8.5 - 10.5 mg/dL LAB CHEMISTRY METHOD 11/28/2024 2:44 PM EDT [facility] AST (SGOT) 10 10 - 42 unit/L LAB CHEMISTRY METHOD 11/28/2024 2:44 PM EDT [facility] ALT (SGPT) 7(L) 10 - 60 unit/L LAB CHEMISTRY METHOD 11/28/2024 2:44 PM EDT [facility] Alkaline Phosphatase 51 42 - 121 unit/L LAB CHEMISTRY METHOD 11/28/2024 2:44 PM EDT [facility] Total Protein 4.7(L) 6.0 - 8.0 g/dL LAB CHEMISTRY METHOD 11/28/2024 2:44 PM EDT [facility] Albumin 1.7(L) 3.2 - 5.0 g/dL LAB CHEMISTRY METHOD 11/28/2024 2:44 PM EDT [facility] Total Bilirubin 0.2 0.0 - 1.4 mg/dL LAB CHEMISTRY METHOD 11/28/2024 2:44 PM EDT [facility] Blood Venous blood specimen / Unknown Venipuncture / Unknown 11/28/2024 5:29 AM EDT 11/28/2024 10:49 AM EDT us Cole Pete MD LAB BLOOD ORDERABLES Final Resul t [facility] [address] [place] [address], from Last 3 Months Insurance MEDICARE MEDICAID - [place] Care Teams [employer] Relationship Specialty Start Date End Date Cole Pete MD [address] [place] [address], [phone] PCP - General Family Medicine 07/31/24
--- OUTSIDE RECORDS SUMMARY | 2024-12-13 13:49 | XMS_ITS | Encounter Summary ---
Author Organization [facility] Address [address] [place] [address] Care Team Providers Care Human Performance Technologist Name Role Phone Cole Pete MD Primary Care Provider [phone] Encounter Details Date Type Department Care Team (Late st Contact Info) Description 10/05/2024 Lab Requisition [facility] - Main Lab [address] [place] [address] Cole Pete MD 38 [facility] [address] [place], [address] Unspecified atrial fibrillation (CMS/HCC V24, CMS/HCC V28) [...] LAB CHEMISTRY METHOD 10/06/2024 10:57 AM EST [facility] Potassium 4.1 3.5 - 5.5 mmol/L LAB CHEMISTRY METHOD 10/06/2024 10:57 AM [facility] Chloride 112(H) 96 - 110 mmol/L LAB CHEMISTRY METHOD 10/06/2024 10:57 AM [facility] CO2 23 21 - 32 mmol/L LAB CHEMISTRY METHOD 10/06/2024 10:57 AM [facility] Anion Gap 8 3 - 11 LAB CHEMISTRY METHOD 10/06/2024 10:57 AM [facility] Glucose 117(H) 70 - 100 mg/dL LAB CHEMISTRY METHOD 10/06/2024 10:57 AM [facility] BUN 23 5 - 25 mg/dL LAB CHEMISTRY METHOD 10/06/2024 10:57 AM [facility] Creatinine 1.29 0.70 - 1.30 mg/dL LAB CHEMISTRY METHOD 10/06/2024 10:57 AM [facility] LAB eGFR 54(L) >=60 mL/min/1. 73m2 LAB CHEMISTRY METHOD 10/06/2024 10:57 AM [facility] LAB Comment:Calculation based on the??Chronic Kidney Disease Epidemiology Collaboration (CKD-EPI) equation refit??without adjustment for race. BUN/Creatinine Ratio 17.8 LAB CHEMISTRY METHOD 10/06/2024 10:57 AM [facility] Calcium 8.1(L) 8.5 - 10.5 mg/dL LAB CHEMISTRY METHOD 10/06/2024 10:57 AM [facility] LAB Blood Venous blood specimen / Unknown Venipuncture / Unknown 10/06/2024 7:08 AM EST 10/06/2024 10:09 AM EST us Cole Pete MD LAB BLOOD ORDERABLES Final Resul t [facility] [address] [place] [address], * (ABNORMAL) Complete blood count (10/06/2024 7:08 AM EST) [facility] WBC 8.3 4.8 - 10.8 K/mcL LAB HEMETOLOGY METHOD 10/06/2024 10:36 AM [facility] LAB RBC 2.80(L) 4.50 - 5.50 M/mcL LAB HEMETOLOGY METHOD 10/06/2024 10:36 AM [facility] LAB Hemoglobin 7.8(L) 13.5 - 17.5 g/dL LAB HEMETOLOGY METHOD 10/06/2024 10:36 AM [facility] LAB Hematocrit 24.4(L) 42.0 - 54.0 % LAB HEMETOLOGY METHOD 10/06/2024 10:36 AM [facility] LAB MCV 88.4 79.0 - 98.0 FL LAB HEMETOLOGY METHOD 10/06/2024 10:36 AM [facility] LAB MCH 28.3 27.0 - 32.0 pcg LAB HEMETOLOGY METHOD 10/06/2024 10:36 AM [facility] LAB MCHC 32.0 32.0 - 37.0 g/dL LAB HEMETOLOGY METHOD 10/06/2024 10:36 AM [facility] LAB RDW 15.1(H) 11.0 - 15.0 % LAB HEMETOLOGY METHOD 10/06/2024 10:36 AM [facility] LAB Platelets 295 130 - 400 K/mcL LAB HEMETOLOGY METHOD 10/06/2024 10:36 AM [facility] LAB MPV 10.5 7.0 - 11.0 FL LAB HEMETOLOGY METHOD 10/06/2024 10:36 AM [facility] NRBC 0.0 <1.0 % LAB HEMETOLOGY METHOD 10/06/2024 10:36 AM [facility] LAB NRBC Absolute 0.00 <0.10 K/mcL LAB HEMETOLOGY METHOD 10/06/2024 10:36 AM EST [facility] Blood Venous blood specimen / Unknown Venipuncture / Unknown 10/06/2024 7:08 AM EST 10/06/2024 10:09 AM EST Cole Pete MD LAB BLOOD ORDERABLES Final Resul t [facility] [address] [place] [address], documented in this encounter Visit Diagnoses Diagnosis Unspecified atrial fibrillation (CMS/HCC V24, CMS/HCC V28) documented in this encounter Care Teams Human Performance Technologist Relationship Specialty Start Date End Date Cole Pete MD [address] [place] [address], [phone] PCP - General Family Medicine 07/31/24 documented as of this encounter
--- OUTSIDE RECORDS SUMMARY | 2024-12-13 13:49 | XMS_ITS | Encounter Summary ---
Author Organization [facility] Address [address] [place] [address] Care Team Providers Care Retail Shift Leader Name Role Phone Cole Pete MD Primary Care Provider [phone] Encounter Details Date Type Department Care Team (Late st Contact Info) Description 10/07/2024 Lab Requisition [facility] - Main Lab 299 [facility] [place] [address] Cole Pete MD [address] [place] [address] 204 [facility] [phone] Paroxysmal atrial fibrillation (CMS/HCC V24, CMS/HCC V28); Hyperkalemia; Unspecified dementia, unspecified severity, without behavioral disturbance, psychotic disturbance, mood disturbance, and anxiety (CMS/HCC V24, CMS/HCC V28) Social History Tobacco [...] mmol/L LAB CHEMISTRY METHOD 10/10/2024 1:48 PM [facility] Potassium 4.3 3.5 - 5.5 mmol/L LAB CHEMISTRY METHOD 10/10/2024 1:48 PM [facility] Chloride 110 96 - 110 mmol/L LAB CHEMISTRY METHOD 10/10/2024 1:48 PM [facility] CO2 27 21 - 32 mmol/L LAB CHEMISTRY METHOD 10/10/2024 1:48 PM [facility] Anion Gap 3 3 - 11 LAB CHEMISTRY METHOD 10/10/2024 1:48 PM [facility] Glucose 82 70 - 100 mg/dL LAB CHEMISTRY METHOD 10/10/2024 1:48 PM [facility] BUN 20 5 - 25 mg/dL LAB CHEMISTRY METHOD 10/10/2024 1:48 PM [facility] Creatinine 1.21 0.70 - 1.30 mg/dL LAB CHEMISTRY METHOD 10/10/2024 1:48 PM [facility] eGFR 59(L) >=60 mL/min/1. 73m2 LAB CHEMISTRY METHOD 10/10/2024 1:48 PM [facility] LAB Comment:Calculation based on the??Chronic Kidney Disease Epidemiology Collaboration (CKD-EPI) equation refit??without adjustment for race. BUN/Creatinine Ratio 16.5 LAB CHEMISTRY METHOD 10/10/2024 1:48 PM [facility] Calcium 7.8(L) 8.5 - 10.5 mg/dL LAB CHEMISTRY METHOD 10/10/2024 1:48 PM [facility] Blood Venous blood specimen / Unknown Venipuncture / Unknown 10/10/2024 6:24 AM EST 10/10/2024 11:29 AM EST us Cole Pete MD LAB BLOOD ORDERABLES Final Resul t [facility] [address] [place] [address], * (ABNORMAL) Complete blood count (10/10/2024 6:24 AM EST) WBC 7.2 4.8 - 10.8 K/mcL LAB HEMETOLOGY METHOD 10/10/2024 1:03 PM [facility] RBC 2.30(L) 4.50 - 5.50 M/mcL LAB HEMETOLOGY METHOD 10/10/2024 1:03 PM [facility] Hemoglobin 6.6(L) 13.5 - 17.5 g/dL LAB HEMETOLOGY METHOD 10/10/2024 1:03 PM [facility] Hematocrit 20.2(L) 42.0 - 54.0 % LAB HEMETOLOGY METHOD 10/10/2024 1:03 PM [facility] MCV 87.8 79.0 - 98.0 FL LAB HEMETOLOGY METHOD 10/10/2024 1:03 PM [facility] MCH 28.7 27.0 - 32.0 pcg LAB HEMETOLOGY METHOD 10/10/2024 1:03 PM [facility] MCHC 32.7 32.0 - 37.0 g/dL LAB HEMETOLOGY METHOD 10/10/2024 1:03 PM [facility] RDW 15.7(H) 11.0 - 15.0 % LAB HEMETOLOGY METHOD 10/10/2024 1:03 PM [facility] Platelets 295 130 - 400 K/mcL LAB HEMETOLOGY METHOD 10/10/2024 1:03 PM [facility] MPV 10.6 7.0 - 11.0 FL LAB HEMETOLOGY METHOD 10/10/2024 1:03 PM EST [facility] NRBC 0.0 <1.0 % LAB HEMETOLOGY METHOD 10/10/2024 1:03 PM EST [facility] NRBC Absolute 0.00 <0.10 K/mcL LAB HEMETOLOGY METHOD 10/10/2024 1:03 PM EST [facility] Blood Venous blood specimen / Unknown Venipuncture / Unknown 10/10/2024 6:24 AM EST 10/10/2024 11:29 AM EST us Cole Pete MD LAB BLOOD ORDERABLES Final Resul t [facility] [address] [place] [address], documented in this encounter Visit Diagnoses Diagnosis Paroxysmal atrial fibrillation (CMS/HCC V24, CMS/HCC V28) Atrial fibrillation Hyperkalemia Hyperpotassemia Unspecified dementia, unspecified severity, without behavioral disturbance, psychotic disturbance, mood disturbance, and anxiety (CMS/HCC V24, CMS/HCC V28) documented in this encounter Care Teams Retail Shift Leader Relationship Specialty Start Date End Date Cole Pete MD [address] [place] [address] 204 [place], [phone] PCP - General Family Medicine 07/31/24 documented as of this encounter
--- OUTSIDE RECORDS SUMMARY | 2024-12-13 13:49 | XMS_ITS | Encounter Summary ---
Author Organization [facility] Address [address] [place] [address] Care Team Providers Care Copier Field Service Technician Name Role Phone Cole Pete MD Primary Care Provider [phone] Encounter Details Date Type Department Care Team (Late st Contact Info) Description 12/06/2024 Lab Requisition [facility] - Main Lab [address] [place] [address] Cole Pete MD 38 [facility] [address] [place], [address] Unspecified atrial fibrillation (CMS/HCC V24, CMS/HCC [...] Associated Diagnosis Comments COMPLETE BLOOD COUNT Routine 12/07/2024 6:39 AM EDT Unspecified atrial fibrillation (CMS/HCC) BASIC METABOLIC PANEL Routine 12/07/2024 6:39 AM EDT Unspecified atrial fibrillation (CMS/HCC) documented in this encounter Results * (ABNORMAL) Basic metabolic panel (12/07/2024 6:39 AM EDT) Sodium 140 133 - 145 mmol/L LAB CHEMISTRY METHOD 12/07/2024 12:23 PM EDT [facility] ([facility] Potassium 4.2 3.5 - 5.5 mmol/L LAB CHEMISTRY METHOD 12/07/2024 12:23 PM [facility] Chloride 107 96 - 110 mmol/L LAB CHEMISTRY METHOD 12/07/2024 12:23 PM [facility] CO2 28 21 - 32 mmol/L LAB CHEMISTRY METHOD 12/07/2024 12:23 PM [facility] Anion Gap 5 3 - 11 LAB CHEMISTRY METHOD 12/07/2024 12:23 PM [facility] Glucose 79 70 - 100 mg/dL LAB CHEMISTRY METHOD 12/07/2024 12:23 PM [facility] BUN 15 5 - 25 mg/dL LAB CHEMISTRY METHOD 12/07/2024 12:23 PM [facility] Creatinine 1.19 0.70 - 1.30 mg/dL LAB CHEMISTRY METHOD 12/07/2024 12:23 PM [facility] eGFR 60 >=60 mL/min/1. 73m2 LAB CHEMISTRY METHOD 12/07/2024 12:23 PM [facility] Comment:Calculation based on the??Chronic Kidney Disease Epidemiology Collaboration (CKD-EPI) equation refit??without adjustment for race. BUN/Creatinine Ratio 12.6 LAB CHEMISTRY METHOD 12/07/2024 12:23 PM [facility] Calcium 7.5(L) 8.5 - 10.5 mg/dL LAB CHEMISTRY METHOD 12/07/2024 12:23 PM [facility] Blood Venous blood specimen / Unknown Venipuncture / Unknown 12/07/2024 6:39 AM EDT 12/07/2024 12:05 PM EDT us Cole Pete MD LAB BLOOD ORDERABLES Final Resul t [facility] [address] [place] [address], * (ABNORMAL) Complete blood count (12/07/2024 6:39 AM EDT) [facility] WBC 8.4 4.8 - 10.8 K/mcL LAB HEMETOLOGY METHOD 12/07/2024 11:43 AM [facility] RBC 2.40(L) 4.50 - 5.50 M/mcL LAB HEMETOLOGY METHOD 12/07/2024 11:43 AM [facility] Hemoglobin 7.0(L) 13.5 - 17.5 g/dL LAB HEMETOLOGY METHOD 12/07/2024 11:43 AM [facility] Hematocrit 22.1(L) 42.0 - 54.0 % LAB HEMETOLOGY METHOD 12/07/2024 11:43 AM [facility] MCV 93.2 79.0 - 98.0 FL LAB HEMETOLOGY METHOD 12/07/2024 11:43 AM [facility] MCH 29.5 27.0 - 32.0 pcg LAB HEMETOLOGY METHOD 12/07/2024 11:43 AM [facility] MCHC 31.7(L) 32.0 - 37.0 g/dL LAB HEMETOLOGY METHOD 12/07/2024 11:43 AM [facility] RDW 17.8(H) 11.0 - 15.0 % LAB HEMETOLOGY METHOD 12/07/2024 11:43 AM [facility] Platelets 364 130 - 400 K/mcL LAB HEMETOLOGY METHOD 12/07/2024 11:43 AM [facility] MPV 10.5 7.0 - 11.0 FL LAB HEMETOLOGY METHOD 12/07/2024 11:43 AM [facility] NRBC 0.0 <1.0 % LAB HEMETOLOGY METHOD 12/07/2024 11:43 AM [facility] NRBC Absolute 0.00 <0.10 K/mcL LAB HEMETOLOGY METHOD 12/07/2024 11:43 AM EDT [facility] Blood Venous blood specimen / Unknown Venipuncture / Unknown 12/07/2024 6:39 AM EDT 12/07/2024 11:06 AM EDT us Cole Pete MD LAB BLOOD ORDERABLES Final Resul t [facility] [address] [place] [address], documented in this encounter Visit Diagnoses Diagnosis Unspecified atrial fibrillation (CMS/HCC V24, CMS/HCC V28) documented in this encounter Care Teams Copier Field Service Technician Relationship Specialty Start Date End Date Cole Pete MD [address] [place] [address], [phone] PCP - General Family Medicine 07/31/24 documented as of this encounter
--- OUTSIDE RECORDS SUMMARY | 2024-12-13 13:49 | XMS_ITS | Encounter Summary ---
Author Organization [facility] Address [address] [place] [address] Care Team Providers Care Clinical Operations Consultant Name Role Phone Cole Pete MD Primary Care Provider Encounter Details Date Type Department Care Team (Late st Contact Info) Description 10/03/2024 Lab Requisition [facility] - Main Lab [address] [place] [address] Cole Pete MD [address] [place] [address] 204 [facility] [address] Muscle weakness (generalized) Social History Tobacco [...] LAB CHEMISTRY METHOD 10/03/2024 11:25 AM EST [facility] Potassium 4.1 3.5 - 5.5 mmol/L LAB CHEMISTRY METHOD 10/03/2024 11:25 AM EST [facility] Chloride 114(H) 96 - 110 mmol/L LAB CHEMISTRY METHOD 10/03/2024 11:25 AM [facility] CO2 25 21 - 32 mmol/L LAB CHEMISTRY METHOD 10/03/2024 11:25 AM [facility] Anion Gap 6 3 - 11 LAB CHEMISTRY METHOD 10/03/2024 11:25 AM [facility] Glucose 91 70 - 100 mg/dL LAB CHEMISTRY METHOD 10/03/2024 11:25 AM [facility] BUN 55(H) 5 - 25 mg/dL LAB CHEMISTRY METHOD 10/03/2024 11:25 AM [facility] Comment:Results verified by repeat testing Creatinine 1.72(H) 0.70 - 1.30 mg/dL LAB CHEMISTRY METHOD 10/03/2024 11:25 AM [facility] eGFR 38(L) >=60 mL/min/1. 73m2 LAB CHEMISTRY METHOD 10/03/2024 11:25 AM [facility] Comment:Calculation based on the??Chronic Kidney Disease Epidemiology Collaboration (CKD-EPI) equation refit??without adjustment for race. BUN/Creatinine Ratio 32.0 LAB CHEMISTRY METHOD 10/03/2024 11:25 AM [facility] Calcium 8.0(L) 8.5 - 10.5 mg/dL LAB CHEMISTRY METHOD 10/03/2024 11:25 AM [facility] Blood Venous blood specimen / Unknown Venipuncture / Unknown 10/03/2024 6:54 AM EST 10/03/2024 9:29 AM EST us Cole Pete MD LAB BLOOD ORDERABLES Final Resul t [facility] [address] [place] [address], * (ABNORMAL) Complete blood count (10/03/2024 6:54 AM EST) [facility] WBC 7.7 4.8 - 10.8 K/mcL LAB HEMETOLOGY METHOD 10/03/2024 10:01 AM [facility] RBC 2.60(L) 4.50 - 5.50 M/mcL LAB HEMETOLOGY METHOD 10/03/2024 10:01 AM [facility] Hemoglobin 7.3(L) 13.5 - 17.5 g/dL LAB HEMETOLOGY METHOD 10/03/2024 10:01 AM [facility] Hematocrit 23.2(L) 42.0 - 54.0 % LAB HEMETOLOGY METHOD 10/03/2024 10:01 AM [facility] MCV 89.2 79.0 - 98.0 FL LAB HEMETOLOGY METHOD 10/03/2024 10:01 AM [facility] MCH 28.1 27.0 - 32.0 pcg LAB HEMETOLOGY METHOD 10/03/2024 10:01 AM [facility] MCHC 31.5(L) 32.0 - 37.0 g/dL LAB HEMETOLOGY METHOD 10/03/2024 10:01 AM [facility] RDW 15.1(H) 11.0 - 15.0 % LAB HEMETOLOGY METHOD 10/03/2024 10:01 AM [facility] Platelets 269 130 - 400 K/mcL LAB HEMETOLOGY METHOD 10/03/2024 10:01 AM [facility] MPV 10.7 7.0 - 11.0 FL LAB HEMETOLOGY METHOD 10/03/2024 10:01 AM [facility] NRBC 0.0 <1.0 % LAB HEMETOLOGY METHOD 10/03/2024 10:01 AM [facility] NRBC Absolute 0.00 <0.10 K/mcL LAB HEMETOLOGY METHOD 10/03/2024 10:01 AM EST [facility] Blood Venous blood specimen / Unknown Venipuncture / Unknown 10/03/2024 6:54 AM EST 10/03/2024 9:29 AM EST us Cole Pete MD LAB BLOOD ORDERABLES Final Resul t [facility] [address] [place] [address], documented in this encounter Visit Diagnoses Diagnosis Muscle weakness (generalized) documented in this encounter Care Teams Clinical Operations Consultant Relationship Specialty Start Date End Date Cole Pete MD [address] [place] [address], [phone] PCP - General Family Medicine 07/31/24 documented as of this encounter
--- OUTSIDE RECORDS SUMMARY | 2024-12-13 13:49 | XMS_ITS | Encounter Summary ---
Author Organization [facility] Address [address] [place] [address] Care Team Providers Care Operations Director Name Role Phone Cole Pete MD Primary Care Provider [phone] Encounter Details Date Type Department Care Team (Late st Contact Info) Description 07/26/[address] [facility] - Main Lab [address] [facility] [place] [address] Cole Pete MD [address] [place] [address] 204 [facility] [address] Pulmonary heart disease, unspecified (CMS/HCC V24, CMS/HCC V28); Unspecified dementia, unspecified severity, without behavioral disturbance, psychotic disturbance, mood disturbance, and anxiety (CMS/HCC V24, CMS/HCC V28); Hyperlipidemia, unspecified; Unspecified atrial fibrillation (CMS/HCC V24, CMS/HCC V28) [...] acid level, total (07/26/2024 4:50 AM EST) [facility] Valproic Acid, Total <3(L) 50 - 100 mcg/mL LAB CHEMISTRY METHOD 07/27/2024 11:41 AM EST [facility] Blood Venous blood specimen / Unknown Venipuncture / Unknown 07/26/2024 4:50 AM EST 07/26/2024 8:48 AM EST us Cole Pete MD LAB BLOOD ORDERABLES Final Resul t [facility] [address] [place] [address], * (ABNORMAL) Hepatic function panel (07/26/2024 4:50 AM EST) [facility] Total Protein 5.3(L) 6.0 - 8.0 g/dL LAB CHEMISTRY METHOD 07/26/2024 9:26 AM EST [facility] Albumin 2.4(L) 3.2 - 5.0 g/dL LAB CHEMISTRY METHOD 07/26/2024 9:26 AM [facility] Total Bilirubin 0.4 0.0 - 1.4 mg/dL LAB CHEMISTRY METHOD 07/26/2024 9:26 AM [facility] Bilirubin, Direct 0.2 0.0 - 0.3 mg/dL LAB CHEMISTRY METHOD 07/26/2024 9:26 AM [facility] Bilirubin, Indirect 0.2 0.0 - 1.1 mg/dL LAB CHEMISTRY METHOD 07/26/2024 9:26 AM [facility] ALT (SGPT) 10 10 - 60 unit/L LAB CHEMISTRY METHOD 07/26/2024 9:26 AM [facility] AST (SGOT) 8(L) 10 - 42 unit/L LAB CHEMISTRY METHOD 07/26/2024 9:26 AM [facility] Alkaline Phosphatase 95 42 - 121 unit/L LAB CHEMISTRY METHOD 07/26/2024 9:26 AM [facility] Blood Venous blood specimen / Unknown Venipuncture / Unknown 07/26/2024 4:50 AM EST 07/26/2024 8:48 AM EST us Cole Pete MD LAB BLOOD ORDERABLES Final Resul t [facility] [address] [place] [address], * (ABNORMAL) Prothrombin time with INR (07/26/2024 4:50 AM EST) Protime 19.3(H) 10.6 - 13.9 sec LAB COAGULATION METHOD 07/26/2024 9:38 AM EST [facility] INR 1.5 LAB COAGULATION METHOD 07/26/2024 9:38 AM [facility] Blood Venous blood specimen / Unknown Venipuncture / Unknown 07/26/2024 4:50 AM EST 07/26/2024 8:48 AM EST us Cole Pete MD LAB BLOOD ORDERABLES Final Resul t [facility] [address] [place] [address], [place] [phone] * (ABNORMAL) Complete blood count (07/26/2024 4:50 AM EST) WBC 11.0(H) 4.8 - 10.8 K/mcL LAB HEMETOLOGY METHOD 07/26/2024 9:04 AM [facility] RBC 2.40(L) 4.50 - 5.50 M/mcL LAB HEMETOLOGY METHOD 07/26/2024 9:04 AM [facility] Hemoglobin 7.0(L) 13.5 - 17.5 g/dL LAB HEMETOLOGY METHOD 07/26/2024 9:04 AM [facility] Hematocrit 22.0(L) 42.0 - 54.0 % LAB HEMETOLOGY METHOD 07/26/2024 9:04 AM [facility] MCV 90.9 79.0 - 98.0 FL LAB HEMETOLOGY METHOD 07/26/2024 9:04 AM [facility] MCH 28.9 27.0 - 32.0 pcg LAB HEMETOLOGY METHOD 07/26/2024 9:04 AM [facility] MCHC 31.8(L) 32.0 - 37.0 g/dL LAB HEMETOLOGY METHOD 07/26/2024 9:04 AM [facility] RDW 16.1(H) 11.0 - 15.0 % LAB HEMETOLOGY METHOD 07/26/2024 9:04 AM [facility] Platelets 263 130 - 400 K/mcL LAB HEMETOLOGY METHOD 07/26/2024 9:04 AM EST [facility] MPV 10.7 7.0 - 11.0 FL LAB HEMETOLOGY METHOD 07/26/2024 9:04 AM EST [facility] NRBC 0.0 <1.0 % LAB HEMETOLOGY METHOD 07/26/2024 9:04 AM EST [facility] NRBC Absolute 0.00 <0.10 K/mcL LAB HEMETOLOGY METHOD 07/26/2024 9:04 AM EST [facility] Blood Venous blood specimen / Unknown Venipuncture / Unknown 07/26/2024 4:50 AM EST 07/26/2024 8:48 AM EST us Cole Pete MD LAB BLOOD ORDERABLES Final Resul t [facility] [address] [place] [address], documented in this encounter Visit Diagnoses Diagnosis Pulmonary heart disease, unspecified (CMS/HCC V24, CMS/HCC V28) Unspecified dementia, unspecified severity, without behavioral disturbance, psychotic disturbance, mood disturbance, and anxiety (CMS/HCC V24, CMS/HCC V28) Hyperlipidemia, unspecified Unspecified atrial fibrillation (CMS/HCC V24, CMS/HCC V28) documented in this encounter Care Teams Operations Director Relationship Specialty Start Date End Date Cole Pete MD [address] [place] [phone] PCP - General Family Medicine 07/31/24 documented as of this encounter
--- OUTSIDE RECORDS SUMMARY | 2024-12-13 13:49 | XMS_ITS | Encounter Summary ---
Author Organization [facility] Address [address] [place] [address] Care Team Providers Care Onshore Diver Name Role Phone Cole Pete MD Primary Care Provider [phone] Encounter Details Date Type Department Care Team (Late st Contact Info) Description 12/09/2024 Lab Requisition [facility] - Main Lab [address] [facility] [place] [address] Cole Pete MD 38 [facility] 204 [facility] [address] Unspecified atrial fibrillation (CMS/HCC V24, CMS/HCC V28); Anemia, unspecified Social History Tobacco Use Types [...] Associated Diagnosis Comments COMPLETE BLOOD COUNT Routine 12/09/2024 8:10 AM EDT Unspecified atrial fibrillation (CMS/HCC V24, CMS/HCC V28) Anemia, unspecified BASIC METABOLIC PANEL Routine 12/09/2024 8:10 AM EDT Unspecified atrial fibrillation (CMS/HCC V24, CMS/HCC V28) Anemia, unspecified documented in this encounter Results * (ABNORMAL) Basic metabolic panel (12/09/2024 8:10 AM EDT) [facility] Signature Sodium 138 133 - 145 mmol/L LAB CHEMISTRY METHOD 12/09/2024 11:15 AM [facility] Potassium 4.9 3.5 - 5.5 mmol/L LAB CHEMISTRY METHOD 12/09/2024 11:15 AM [facility] Chloride 105 96 - 110 mmol/L LAB CHEMISTRY METHOD 12/09/2024 11:15 AM [facility] CO2 28 21 - 32 mmol/L LAB CHEMISTRY METHOD 12/09/2024 11:15 AM [facility] Anion Gap 5 3 - 11 LAB CHEMISTRY METHOD 12/09/2024 11:15 AM [facility] Glucose 86 70 - 100 mg/dL LAB CHEMISTRY METHOD 12/09/2024 11:15 AM [facility] BUN 13 5 - 25 mg/dL LAB CHEMISTRY METHOD 12/09/2024 11:15 AM [facility] Creatinine 0.99 0.70 - 1.30 mg/dL LAB CHEMISTRY METHOD 12/09/2024 11:15 AM [facility] eGFR 75 >=60 mL/min/1. 73m2 LAB CHEMISTRY METHOD 12/09/2024 11:15 AM [facility] Comment:Calculation based on the??Chronic Kidney Disease Epidemiology Collaboration (CKD-EPI) equation refit??without adjustment for race. BUN/Creatinine Ratio 13.1 LAB CHEMISTRY METHOD 12/09/2024 11:15 AM [facility] Calcium 8.1(L) 8.5 - 10.5 mg/dL LAB CHEMISTRY METHOD 12/09/2024 11:15 AM [facility] Blood Venous blood specimen / Unknown Venipuncture / Unknown 12/09/2024 8:10 AM EDT 12/09/2024 10:34 AM EDT us Cole Pete MD LAB BLOOD ORDERABLES Final Resul t [facility] [address] [place] [address], * (ABNORMAL) Complete blood count (12/09/2024 8:10 AM EDT) [facility] WBC 7.4 4.8 - 10.8 K/mcL LAB HEMETOLOGY METHOD 12/09/2024 10:46 AM [facility] RBC 2.80(L) 4.50 - 5.50 M/mcL LAB HEMETOLOGY METHOD 12/09/2024 10:46 AM [facility] Hemoglobin 8.1(L) 13.5 - 17.5 g/dL LAB HEMETOLOGY METHOD 12/09/2024 10:46 AM [facility] Hematocrit 25.5(L) 42.0 - 54.0 % LAB HEMETOLOGY METHOD 12/09/2024 10:46 AM [facility] MCV 92.4 79.0 - 98.0 FL LAB HEMETOLOGY METHOD 12/09/2024 10:46 AM [facility] MCH 29.3 27.0 - 32.0 pcg LAB HEMETOLOGY METHOD 12/09/2024 10:46 AM [facility] MCHC 31.8(L) 32.0 - 37.0 g/dL LAB HEMETOLOGY METHOD 12/09/2024 10:46 AM [facility] RDW 17.2(H) 11.0 - 15.0 % LAB HEMETOLOGY METHOD 12/09/2024 10:46 AM [facility] Platelets 387 130 - 400 K/mcL LAB HEMETOLOGY METHOD 12/09/2024 10:46 AM [facility] MPV 10.4 7.0 - 11.0 FL LAB HEMETOLOGY METHOD 12/09/2024 10:46 AM [facility] NRBC 0.0 <1.0 % LAB HEMETOLOGY METHOD 12/09/2024 10:46 AM EDT [facility] NRBC Absolute 0.00 <0.10 K/mcL LAB HEMETOLOGY METHOD 12/09/2024 10:46 AM EDT [facility] Blood Venous blood specimen / Unknown Venipuncture / Unknown 12/09/2024 8:10 AM EDT 12/09/2024 10:34 AM EDT us Cole Pete MD LAB BLOOD ORDERABLES Final Resul t [facility] [address] [place] [address], documented in this encounter Visit Diagnoses Diagnosis Unspecified atrial fibrillation (CMS/HCC V24, CMS/HCC V28) Anemia, unspecified documented in this encounter Care Teams Onshore Diver Relationship Specialty Start Date End Date Cole Pete MD [address] [place] [address] [address] [place], [phone] PCP - General Family Medicine 07/31/24 documented as of this encounter
--- OUTSIDE RECORDS SUMMARY | 2024-12-13 13:49 | XMS_ITS | Encounter Summary ---
Author Organization [facility] Address [address] [place] [address] Care Team Providers Care Can Closing Machine Tender Name Role Phone Cole Pete MD Primary Care Provider [phone] Encounter Details Date Type Department Care Team (Late st Contact Info) Description 08/04/2024 Lab Requisition [facility] - Main Lab 299 [facility] [place] [address] Cole Pete MD 38 [facility] 204 [facility] [phone] Essential (primary) hypertension Social History [...] Escherichia coli(A) AUGUST 08/06/2024 11:27 AM EST [facility] ([facility] Comment: This is an edited result. Previous organism was Gram negative bacilli on 08/06/2024 at 1111 EST. Urine Urine specimen obtained by clean catch procedure / Unknown Non-blood Collection / Unknown 08/03/2024 6:00 PM EST 08/04/2024 10:35 AM EST [facility] ([facility] - 08/06/2024 11:27 AM EST Additional colony types present in insignificant amounts. Organism Antibiotic Method Susceptibility Escherichia coli Amoxicillin/Clavulanate AUGUST <=2 ug/ml: Susceptible Escherichia coli Ampicillin/Sulbactam AUGUST <=2 ug/ml: Susceptible Escherichia coli Piperacillin/Tazobactam AUGUST [...] MICROBIOLOGY - GENERAL ORDER NANCY Final Result [facility] ([facility]) [facility] [address] [place] [address], * Sharma urine culture tube (08/03/2024 6:00 PM EST) Pathologist [facility] Extra Tube Hold for add-ons. 08/04/2024 11:01 AM [facility] Comment:Auto resulted. Urine Urine specimen obtained by clean catch procedure / Unknown Non-blood Collection / Unknown 08/03/2024 6:00 PM EST 08/04/2024 9:12 AM EST us Cole Pete MD LAB URINE ORDERABLES Final Resul t [facility] [address] [place] [address], [place] [phone] * (ABNORMAL) Urinalysis with reflex microscopic and culture (08/03/2024 6:00 PM EST) Specific [place] Urine 1.007 1.003 - 1.030 LAB URINALYSIS - AUTOMATED METHOD 08/04/2024 10:35 AM [facility] pH, Urine 6.0 5.0 - 8.0 pH LAB URINALYSIS - AUTOMATED METHOD 08/04/2024 10:35 AM [facility] Leukocytes, Urine Large(A) Negative LAB URINALYSIS - AUTOMATED METHOD 08/04/2024 10:35 AM [facility] Nitrite, Urine Negative Negative LAB URINALYSIS - AUTOMATED METHOD 08/04/2024 10:35 AM [facility] Protein, Urine 30(A) <=Trace mg/dL LAB URINALYSIS - AUTOMATED METHOD 08/04/2024 10:35 AM [facility] Glucose, Urine Negative Negative mg/dL LAB URINALYSIS - AUTOMATED METHOD 08/04/2024 10:35 AM [facility] Ketones, Urine Negative Negative mg/dL LAB URINALYSIS - AUTOMATED METHOD 08/04/2024 10:35 AM [facility] Urobilinogen, Urine 0.2 0.2 - 1.0 mg/dL LAB URINALYSIS - AUTOMATED METHOD 08/04/2024 10:35 AM [facility] Bilirubin, Urine Negative Negative LAB URINALYSIS - AUTOMATED METHOD 08/04/2024 10:35 AM [facility] Blood, Urine Large(A) Negative LAB URINALYSIS - AUTOMATED METHOD 08/04/2024 10:35 AM [facility] RBC, Urine 113.0(H) 0 - 4 /HPF LAB URINALYSIS - AUTOMATED METHOD 08/04/2024 10:35 AM [facility] WBC, Urine 525.4(H) 0 - 4 /HPF LAB URINALYSIS - AUTOMATED METHOD 08/04/2024 10:35 AM [facility] Squamous Epithelial, Urine 17 0 - 60 /LPF LAB URINALYSIS - AUTOMATED METHOD 08/04/2024 10:35 AM [facility] Bacteria, Urine Many(A) Negative /HPF LAB URINALYSIS - AUTOMATED METHOD 08/04/2024 10:35 AM [facility] Hyaline Casts, Urine 2.1 0 - 3 /LPF LAB URINALYSIS - AUTOMATED METHOD 08/04/2024 10:35 AM [facility] Urine Urine specimen obtained by clean catch procedure / Unknown Non-blood Collection / Unknown 08/03/2024 6:00 PM EST 08/04/2024 9:12 AM EST us Cole Pete MD LAB URINE ORDERABLES Final Resul t [facility] [address] [place] [address], documented in this encounter Visit Diagnoses Diagnosis Essential (primary) hypertension Unspecified essential hypertension documented in this encounter Care Teams Can Closing Machine Tender Relationship Specialty Start Date End Date Cole Pete MD [address] [place] [address], [phone] PCP - General Family Medicine 07/31/24 documented as of this encounter
--- OUTSIDE RECORDS SUMMARY | 2024-12-13 13:49 | XMS_ITS | Encounter Summary ---
Author Organization [facility] Address [address] [place] [address] Care Team Providers Care Artificial Teeth Inspector Name Role Phone Cole Pete MD Primary Care Provider [phone] Encounter Details Date Type Department Care Team (Late st Contact Info) Description 12/07/2024 Lab Requisition [facility] - Main Lab 299 [facility] [place] [address] Cole Pete MD 38 [facility] 204 [facility] [phone] Essential (primary) hypertension; Urinary tract infection, site not specified Social History Tobacco Use Types Packs/Day Years [...] hypertension Urinary tract infection, site not specified SHARMA URINE CULTURE TUBE Routine 12/06/2024 1:50 PM EDT Essential (primary) hypertension Urinary tract infection, site not specified URINALYSIS WITH REFLEX MICROSCOPIC AND CULTURE Routine 12/06/2024 1:50 PM EDT Essential (primary) hypertension Urinary tract infection, site not specified CULTURE URINE Routine 12/06/2024 1:50 PM EDT Essential (primary) hypertension Urinary tract infection, site not specified documented in this encounter Results * Culture urine (12/06/2024 1:50 PM EDT) Culture, Urine 10,000-49,000 CFU/mL Mixed bacterial morphotypes present suggestive of possible contamination during collection. Suggest appropriate recollection if clinically indicated. 12/08/2024 10:21 AM EDT [facility] Urine Urine specimen obtained by clean catch procedure / Unknown Non-blood Collection / Unknown 12/06/2024 1:50 PM EDT 12/07/2024 12:45 PM EDT us Cole Pete MD LAB MICROBIOLOGY - GENERAL ORDER NANCY Final Result Performing Organization Address City/[facility]/ZIP Co de Phone Number [facility] [address] [place] [address], [place] [phone] * Sharma urine culture tube (12/06/2024 1:50 PM EDT) Pathologist [facility] Extra Tube Hold for add-ons. 12/07/2024 1:01 PM EDT [facility] Comment:Auto resulted. Urine Urine specimen obtained by clean catch procedure / Unknown Non-blood Collection / Unknown 12/06/2024 1:50 PM EDT 12/07/2024 11:11 AM EDT Cole Pete MD LAB URINE ORDERABLES Final Resul t [facility] [address] [place] [address], [place] [phone] * (ABNORMAL) Urinalysis with reflex microscopic and culture (12/06/2024 1:50 PM EDT) [facility] Specific [place] Urine 1.020 1.003 - 1.030 LAB URINALYSIS - AUTOMATED METHOD 12/07/2024 12:45 PM EDT [facility] pH, Urine 8.0 5.0 - 8.0 pH LAB URINALYSIS - AUTOMATED METHOD 12/07/2024 12:45 PM [facility] Leukocytes, Urine Small(A) Negative LAB URINALYSIS - AUTOMATED METHOD 12/07/2024 12:45 PM [facility] Nitrite, Urine Negative Negative LAB URINALYSIS - AUTOMATED METHOD 12/07/2024 12:45 PM [facility] Protein, Urine 30(A) <=Trace mg/dL LAB URINALYSIS - AUTOMATED METHOD 12/07/2024 12:45 PM [facility] Glucose, Urine Negative Negative mg/dL LAB URINALYSIS - AUTOMATED METHOD 12/07/2024 12:45 PM [facility] Ketones, Urine Trace(A) Negative mg/dL LAB URINALYSIS - AUTOMATED METHOD 12/07/2024 12:45 PM [facility] Urobilinogen , Urine 0.2 0.2 - 1.0 mg/dL LAB URINALYSIS - AUTOMATED METHOD 12/07/2024 12:45 PM [facility] Bilirubin, Urine Negative Negative LAB URINALYSIS - AUTOMATED METHOD 12/07/2024 12:45 PM [facility] Blood, Urine Small(A) Negative LAB URINALYSIS - AUTOMATED METHOD 12/07/2024 12:45 PM [facility] RBC, Urine 27.5(H) 0 - 4 /HPF LAB URINALYSIS - AUTOMATED METHOD 12/07/2024 12:45 PM [facility] WBC, Urine 16.1(H) 0 - 4 /HPF LAB URINALYSIS - AUTOMATED METHOD 12/07/2024 12:45 PM [facility] Squamous Epithelial, Urine 80(H) 0 - 60 /LPF LAB URINALYSIS - AUTOMATED METHOD 12/07/2024 12:45 PM [facility] Crystals, Urine Moderate Amorphous Phosphate crystals. /LPF 12/07/2024 12:45 PM EDT [facility] Bacteria, Urine Few(A) Negative /HPF LAB URINALYSIS - AUTOMATED METHOD 12/07/2024 12:45 PM EDT [facility] Hyaline Casts, Urine 2.8 0 - 3 /LPF LAB URINALYSIS - AUTOMATED METHOD 12/07/2024 12:45 PM EDT [facility] Urine Urine specimen obtained by clean catch procedure / Unknown Non-blood Collection / Unknown 12/06/2024 1:50 PM EDT 12/07/2024 11:11 AM EDT us Cole Pete MD LAB URINE ORDERABLES Final Resul t [facility] [address] [place] [address], documented in this encounter Visit Diagnoses Diagnosis Essential (primary) hypertension Unspecified essential hypertension Urinary tract infection, site not specified documented in this encounter Care Teams Artificial Teeth Inspector Relationship Specialty Start Date End Date Cole Pete MD [address] [place] [address], [phone] PCP - General Family Medicine 07/31/24 documented as of this encounter
--- OUTSIDE RECORDS SUMMARY | 2024-12-13 13:49 | XMS_ITS | Continuity of Care Document ---
Author Organization [facility], 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 Name Role Phone JASMIN HATCH - [...] Address Organization Details Recorded Time Recurrent falls 916250074 Active 2022 Not Available [facility] 4 15:36:09 Acute non-ST segment elevation myocardial infarction 451406867 Active 2022 Not Available [facility] 4 15:36:10 Urinary tract infectious disease 95811367 Active 2022 Not Available [facility] 4 15:36:10 Altered mental status 160299603 Active 2022 Not Available [facility] 4 15:36:10 Dysphagia 81712040 Active 2022 Not Available [facility] 4 15:36:10 Anemia 148803958 Active 2022 Not Available [facility] 4 15:36:09 Loose stool 221644986 Active 2022 Not Available [facility] 4 15:36:09 Insomnia 813095768 Active 2023 Danni Joel MD [address] [place] [address], [address], [place], [address] , [facility] 4 17:14:19 Osteonecrosis 418989664 Active 2023 Chandrika Vasques NP [address] [facility], [address], [place], [address] , [facility] 4 17:02:51 Candidiasis of the esophagus 99677255 Active 2023 STEPHANIE MYLES NP [address] [facility], [facility] [address], [place], [address] , [facility] 4 13:32:32 Cough 67253901 Active 2023 Chandrika Vasques NP [address] [facility], [facility] [address], [place], [address] , [facility] 4 12:48:25 Hypocalcemia 3138082 Active 2024 Chandrika Vasques NP [address] [facility], [facility] [address], [place], [address] , [facility] 5 14:31:10 Acute cystitis 98014620 Active 2018 Not Available [facility] 4 15:36:10 Dementia 11696803 Active 2018 Not Available [facility] 4 15:36:10 Closed fracture of acetabulum 91610554 Active 2018 Not Available [facility] 4 15:36:09 Osteoarthriti s 261210421 Active 2018 Not Available [facility] 4 15:36:09 Paroxysmal atrial fibrillation 263778227 Active 2018 Not Available [facility] 4 15:36:09 Coronary arteriosclero sis 51847898 Active 2018 Not Available [facility] 4 15:36:10 History of cerebrovascul ar accident 673031461 Active 2018 Not Available [facility] 4 15:36:09 Retention of urine 786432079 Active 2018 Not Available [facility] 4 15:36:09 Essential hypertension 73339935 Active 2018 Not Available [facility] 4 15:36:10 Obstructive sleep apnea syndrome 62962547 Active 2018 Not Available [facility] 4 15:36:10 Gastroesophag eal reflux disease 297956525 Active 2018 Not Available [facility] 4 15:36:09 Diverticuliti s 020170165 Active 2018 Not Available [facility] 4 15:36:09 Mixed hyperlipidemi a 917118066 Active 2018 Not Available [facility] 4 15:36:09 Depressive disorder 98126943 Active 2018 Not Available [facility] 4 15:36:09 Chronic low back pain 885992221 Active 2018 Not Available [facility] 4 15:36:09 Fracture of scapular body 06192017 Active 2018 Not Available [facility] 4 15:36:10 Teardrop fracture of cervical vertebra 277389487 Active 2018 Not Available [facility] 4 15:36:09 Unsteady gait Active 2018 Not Available [facility] 4 15:36:09 Gastroesophag eal reflux disease without esophagitis 199064157 Active 2018 Not Available [facility] 4 15:36:09 Impaired cognition 989117923 Active 2018 Not Available [facility] 4 15:36:09 Problem Notes None [...] mm[Hg] 67 mm[Hg] Chandrika Vasques NP [address] [facility] [address], [place], [address], [facility] 5 11:08:34 Social History Question Answer Notes LastModified by Organizat ion Details LastModified Time Tobacco Smoking Status Never Smoker Cole Pete MD [address] [facility], [address], [place], [address], [facility] 11/03/2022 13:48:54 Do You Have An Advance Directive? Yes [email or web address] Information not available 11/04/2022 What Is Your Level Of Alcohol Consumption? None [email or web address] Information not available 11/03/2022 What Is Your Code Status? Full Code [email or web address] Information not available 11/04/2022 Where Do You Live? [facility] Information not available 10/26/2023 Legal Guardian? No Informati on not available 10/26/2023 Do You Have A Medical Power Of Inspector Balance Truing? Yes Valid Copy In PCC, Invoked [email or web address] Information not available 11/14/2022 What Was The Date Of Your Most Recent Tobacco Screening? 12/15/2023 [email or web address] Information not available 12/15/2023 Do You Have An Out Of Hospital DNR? No Information not available 10/26/2023 What Is Your Relationship Status? Information not available 10/26/2023 Do You Use Any Illicit Or Recreational Drugs? No [email or web address] Information not available 11/14/2022 Has Tobacco Cessation Counseling Been Provided? No N/A As Pt Is A Non-smoker Information not available 10/26/2023 Do You Or Have You Ever Used Any Other Forms Of Tobacco Or Nicotine? No [email or web address] Information not available 11/14/2022 Sex: Unknown Functional Status None recorded. Mental Status None recorded. Family History Relationship Description Onset Age of this Age Resolved Age Notes LastModified by Organization Details LastModified Time Father Coronary arterioscler [email or web address] Not available 2022 20:16:51 Mother Coronary arterioscler osis [email or web address] Not available 2022 20:16:51 Medical History No medical history recorded. Immunizations Vaccine Type Date Status Note Provider Nam e and Address Organization Details Recorded Time COVID-19, mRNA, LNP-S, bivalent, PF, 50 mcg/0.5 mL or 25mcg/0.25 mL dose 1 completed Not Available [facility] 09/23/2023 15:36:10 COVID-19, mRNA, LNP-S, bivalent, PF, 50 mcg/0.5 mL or 25mcg/0.25 mL dose 1 completed Not Available [facility] 09/23/2023 15:36:10 COVID-19, mRNA, LNP-S, bivalent, PF, 50 mcg/0.5 mL or 25mcg/0.25 mL dose 2 completed Not Available [facility] 09/23/2023 15:36:10 Influenza, adjuvanted, quadrivalent, PF 3 completed Yennifer mak, [facility] 10/19/2023 12:00:11 pneumococcal polysaccharide PPV23 3 completed Yennifer mak [facility] 10/19/2023 12:54:08 Past Encounters Encounter ID Performer Location Encounter Start Date Encounter Closed Date Diagnosis/Indication Diagnosis SNOMED-CT Code Diagnosis ICD10 Code Diagnosis Note [id number] Chandrika Vasques NP [address] [address] 11/10/2024 10:27:23 11/14/2024 13:37:53 Dementia 95604967 F02.80 baseline dementia, with behaviors resolving to [...] level in one month from start Hypocalcemia 2000766 E83 .51 pt with low calcium level 7.7choleca lciferol 800 iu admonitorc alcium level prn Anemia 135980736 D64.9 anemia and labs improved since last set with slight GABRIELA anemiaNo s/s active bleedingpl avix and xareltolab s as abovecont multivitam in with ironiron qdMonitorl abs prn Recurrent falls 42955649 2 R29.6 pt with recurrent fall, last fall on 07/08 without injuriessu pportive caresafety precaution smonitor Benign pro static hyperplasia 131687746 N40.1 continue:t erazosin 5 mg qddc flomax 0.4 mg po qhs added, ? need, no urinary symptoms latelymoni tor Paroxysmal atrial fibrillation 084047175 I48.0 contxarelt o 20 mg qdmetoprol ol 25 mg bidmonitor for rate control Coronary arteriosclerosis 56519593 I25.10 lipitor 40 mg qdplavix 75 mg qdmetoprol ol 25 mg bidmonitor for sx Essential hypertension 06309383 I10 currently stablecont inuemetopr olol 25 mg bid (also on for rate control for AF)monitor for sx Chronic low back pain 27 3570329 M54.50 Currently comfortabl e on daily and prn ultram, diclofenac daily, HS gabapentin . PRN baclofen and APAPMonito r Acute non- ST segment elevation myocardial infarction 482259338 I21.4 contmetopr olol 25 mg bid as aboveatorv astatin 40 mg qdplavix 75 mg qdMonitor for chest pain, sobf/u with cards prn [id number] [facility] [address] 11/14/2024 10:40:13 11/16/2024 11:51:48 Dementia 56478206 F02.80 baseline dementia, with behaviors resolving to baseline sp treatment for uti and depakotese e abovecontt razodone 50 mg qhs and trazodone 25 mg po ammelatoni n 5mg qhsgabapen tin 100 mg po pmcontinue supportive caremonito r for behaviorsp sych eval prnweight stable, will monitor weekly Depressive disorder 6918 9007 F33.8 conttrazod one 25 mg po q am and cont 50 mg po qhspsych consult prndepakot e 250 mg cap q amvalproic acid level in one month from start Abnormal weight 21165663 R63.4 with approx 7 lbs weigth loss in last monthspeec h to re evaldietic jerri to eval for supplement sremeron 7.5 mg po qhs x 1 week, then 15 mg po qhsmonitor weights weekly [id number] LAYLA WILD, [employer]DICTION SOC[employer] WORKER [address] [place] [address] 11/26/2024 08:12:55 12/02/2024 13:50:30 Dementia 89878392 F02.80 baseline dementia, with behaviors resolving to [...] one month from start Aspiration pneumonia 422 464802 J69.0 Continue cefuroxime 500 mg BID for 4 days. End date 11/30/24.Con tinue ground mechanical /altered NDD2 and nectar thick liquid to minimized risk of aspiration .Monitor closely.Sp eech eval, PRN. Urinary tr act infectious disease 37508746 N39.0 Treated with ceftriaxon e, and currently is on cefuroxime .Continue until 11/30/24.Wbc stable.Mon itor s/s. Benign pro static hyperplasia 091826860 N40.1 continue:t erazosin 5 mg qddc flomax 0.4 mg po qhs added, ? need, no urinary symptoms latelymoni tor Acute kidney injury 1466 9001 N17.9 on 11/25/24, Bun 20, Cr 0.98.Encou rage PO fluid.Lucretia tor labs, CBC, CMP on Thursday. Hypocalcemia 5604483 E83 .51 pt with low calcium level 7.8 on 11/25.rajeev calciferol 800 iu admonitorc alcium level prn Anemia 241357100 D64.9 Hgb trending down.No s/s active bleedingpl avix and xareltolab s as abovecont multivitam in with iron.Added Vitamin C 500 mg daily.iron qdMonitorC BC, CMP, iron, ferritin and B12 check on Thursday. Recurrent falls 06576869 2 R29.6 pt with recurrent fall, last fall on 07/08 without injuriessu pportive caresafety precaution smonitor Paroxysmal atrial fibrillation 264503518 I48.0 contxarelt o 20 mg qdmetoprol ol 25 mg bidmonitor for rate control Coronary arteriosclerosis 50119012 I25.10 lipitor 40 mg qdplavix 75 mg qdmetoprol ol 25 mg bidmonitor for sx Essential hypertension 54166984 I10 currently stable, runs low side.Monit or BP daily for 7 days.metop rolol 25 mg bid (also on for rate control for AF)monitor for sx Chronic low back pain 27 6167220 M54.50 Currently comfortabl e on daily and prn ultram, diclofenac daily, HS gabapentin . PRN baclofen and APAPMonito r Acute non- ST segment elevation myocardial infarction 602674163 I21.4 contmetopr olol 25 mg bid as aboveatorv astatin 40 mg qdplavix 75 mg qdMonitor for chest pain, sobf/u with cards prn [id number] [facility] [address] [address] 11/30/2024 11:29:59 12/02/2024 14:55:39 Anemia 515282245 D64.9 anemia and labs improved since last set with slight GABRIELA anemiaper staff having large black stool yesterday critical of hgb 6.6 with recent 7.8 hgb in hosp and appears to be losing bloodhe remains lethargic, pale, and fatigued with recent asp pna, and [place] [facility] [place] send to ER for transfusio n [id number] Chandrika Vasques NP [facility] [address] [address] 12/01/2024 12:37:07 12/05/2024 08:35:18 Anemia 080332898 D64.9 anemia and labs improved since last set with slight GABRIELA anemiaper staff having large black stool yesterday critical of hgb 6.6 with recent 7.8 hgb in hosp and appears to be losing bloodhe remains lethargic, pale, and fatigued with recent asp pna, and [place] [facility] [place] here and has noted AAA felt not urgent for surgery but should fu with vascular outpt, no active bleeding foundwas given 1 unit RBCs in ERstart cbc and bmp on mondaystop xareltomon itor for s/s of bleeding/b lack stools/hyp otension Aspiration pneumonia 422 212324 J69.0 completed cefuroxime 500 mg BID for 4 days. End date 11/30/24.Con tinue ground mechanical /altered NDD2 and nectar thick liquid to minimized risk of aspiration .Monitor closely.Sp eech eval, PRN. Urinary tr act infectious disease 03983758 N39.0 Treated with ceftriaxon e, and currently just completed cefuroxime 11/30Wbc stable.Mon itor s/s. Dementia 11140998 F02.80 baseline dementia, with behaviors resolving to [...] month from start Benign pro static hyperplasia 107663704 N40.1 continue:t erazosin 5 mg qdmonitor Acute kidney injury 1466 9001 N17.9 on 11/25/24, Bun 20, Cr 0.98.Encou rage PO fluid.Lcuretia tor labs, CBC, CMP on Thursday. Hypocalcemia 7895305 E83 .51 pt with low calcium level 7.8 on 11/25.rajeev calciferol 800 iu admonitorc alcium level prn Recurrent falls 92237486 2 R29.6 pt with recurrent fall, last fall on 07/08 without injuriessu pportive caresafety precaution smonitor Paroxysmal atrial fibrillation 561813579 I48.0 contstop xarelto 15 mg qd, discussed with family and anemia, was rec with last hospitaliz ationmetop rolol 25 mg bidmonitor for rate control Coronary arteriosclerosis 25748356 I25.10 lipitor 40 mg qdplavix 75 mg qdmetoprol ol 25 mg bidmonitor for sx Essential hypertension 02111861 I10 currently stablemeto prolol 25 mg bid (also on for rate control for AF)monitor for sx Chronic low back pain 27 9356729 M54.50 Currently comfortabl e on daily and prn ultram, diclofenac daily, HS gabapentin . PRN baclofen and APAPMonito r Acute non- ST segment elevation myocardial infarction 355044145 I21.4 contmetopr olol 25 mg bid as aboveatorv astatin 40 mg qdplavix 75 mg qdMonitor for chest pain, sobf/u with cards prn Abdominal aortic aneurysm without rupture 15101656 I71.40 12/01 returned here and has noted [...] surgical fu, nsg to try son again [id number] Chandrika Vasques NP [address] [address] 12/05/2024 10:18:17 12/12/2024 11:46:37 Abdominal aortic aneurysm without rupture 42873010 I71.40 has noted AAA 5.5 cm with [...] son againcbc and bmp on thursday Anemia 155904485 D64.9 anemia and labs improved since last set with slight GABRIELA anemiaper staff having large black stool yesterdayh e remains lethargic, pale, and fatigued with recent asp pna, and [place] [facility] [place] noted AAA felt not urgent for surgery but should fu with vascular outpt, no active bleeding foundwas given 1 unit RBCs in ER on bc and bmp thursdayr ecently stopped xarelto for high fall risk and anemia, risks discussed with hcpmonitor for s/s of bleeding/b lack stools/hyp otension Aspiration pneumonia 422 789404 J69.0 completed cefuroxime 500 mg BID for 4 days. End date 11/30/24.Con tinue ground mechanical /altered NDD2 and nectar thick liquid to minimized risk of aspiration .Monitor closely.Sp eech eval, PRN. , seems he is noncomplia nt with diet at times per staff12/05 repeat cxr today12/05 cbc and bmp thu Urinary tr act infectious disease 51168178 N39.0 Treated with ceftriaxon e, and currently just completed cefuroxime urinalysis with c & s todayMonit or s/s. Dementia 02232884 F02.80 baseline dementia, with behaviors resolving to [...] labs, CBC, CMP on Thursday. Recurrent falls 26990643 2 R29.6 pt with recurrent fall, last fall on 12/05 without injuriessu pportive caresafety precaution smonitor Paroxysmal atrial fibrillation 814908420 I48.0 contstop xarelto 15 mg qd, discussed with family and anemia, was rec with last hospitaliz ationmetop rolol 25 mg bidmonitor for rate control Coronary arteriosclerosis 85342687 I25.10 lipitor 40 mg qdplavix 75 mg qdmetoprol ol 25 mg bidmonitor for sx Essential hypertension 69147071 I10 currently boderline bpmetoprol ol 25 mg bid (also on for rate control for AF)monitor for sx Chronic low back pain 27 2033031 M54.50 Currently comfortabl e on daily and prn ultram, diclofenac daily, HS gabapentin . PRN baclofen and APAPMonito r Acute non- ST segment elevation myocardial infarction 913854737 I21.4 contmetopr olol 25 mg bid as aboveatorv astatin 40 mg qdplavix 75 mg qdno longer on xareltoMon itor for chest pain, sobf/u with cards prn [id number] STEPHANIE MYLES NP [facility] [address] [address] 12/06/2024 12:16:54 12/12/2024 12:10:36 Recurrent falls 905697443 R29.6 pt with recurrent falls, last fall on 12/05 without injuriessu pportive caresafety precaution smonitorPT OT eval and tx. prn Abdominal aortic aneurysm without rupture 13675288 I71.40 has noted AAA 5.5 cm with [...] son againcbc and bmp on thursday Anemia 486157163 D64.9 Hgb 7.5, s/p 1 U PRBCs [place] [facility] [place]/black , but is on FeRepeatin g CBC in am.Off xarelto but still on plavixMoni tor Aspiration pneumonia 422 083141 J69.0 completed cefuroxime 500 mg BID on 11/30 for 4 days.Repea t CXR 12/05 with scattered RLL atelectasi s.Labs stable, repeat in amContinue O2 via NC to keep sats >90%, currently on 2L (? if anemia contributi ng to hypoxia)Co ntinue modified dietMonito r VS. LS, s/s aspiration , Urinary tr act infectious disease 78421143 N39.0 Treated with ceftriaxon e, and currently just completed cefuroxime urinalysis with c & s - not obtained yetMonitor s/s.CBC, BMP in am Dementia 51877861 F02.80 baseline dementia, with behaviors resolving to baseline sp treatment for uti and depakotese e abovecontt razodone 50 mg qhs and trazodone 25 mg po ammelatoni n 5mg qhsgabapen tin 100 mg po pmcontinue supportive caremonito r for behaviorsp sych eval prnweight stable, will monitor weekly Paroxysmal atrial fibrillation 424905217 I48.0 Off xarelto, risk > benefitAdj usting metoprolol dose to 12.5 mg bid, hold for SBP< 100 (due to low BPs)Contin ue to monitor for rate control Essential hypertension 82453087 I10 BP on the low side.Curre ntly on metoprolol 25 mg bid (also for PAF)Plan -reduce dose to 12.5 mg bid, hold for SBP< 100monitor [id number] Chandrika Vasques NP [facility] [address] 12/08/2024 09:27:49 12/12/2024 13:07:10 Recurrent falls 716018026 R29.6 pt with recurrent falls, last fall on 12/05 without injurieshe has poor safety awareness and high fall risk latelysupp ortive caresafety precaution smonitorPT OT eval and tx. prn Anemia 706344308 D64.9 Hgb 7.5, s/p 1 U PRBCs 12/[place] [facility] [place] stool dark/black , but is on FeRepeatin g CBC in am as it is boderline10dc diclofenac 75 mg po qd, will increase gabapentin to bidincreas e protonix from 20 mg to 40 mg qddue to risk of bleeding will dc plavix risk vs benefit, discussed with sonOff xarelto per last admit to hosp rec and high riskheme test stools x 3cbc and bmp in am, monitor need to send out for transfusio n Aspiration pneumonia 422 498142 J69.0 completed cefuroxime 500 mg BID on 11/30 for 4 days.Repea t CXR 12/05 with scattered RLL atelectasi s.Continue O2 via NC to keep sats >90%, currently 93% this amContinue modified dietMonito r VS. LS, s/s aspiration ,12/08 IS with 10 reps at least tid x 10days Essential hypertension 55673151 I10 BP on the low side.metop rolol 25 mg bid (also for PAF) reduced to 12.5 mg bid, hold for SBP< 100 on 12[facility] Paroxysmal atrial fibrillation 568287126 I48.0 Off xarelto, risk > benefit4/1 0 off plavix risk >benefitme toprolol dose to 12.5 mg bid, hold for SBP< 100 (due to low BPs) recently adjustedCo ntinue to monitor for rate control Urinary tr act infectious disease 25894819 N39.0 Treated with ceftriaxon e, and currently just completed cefuroxime respeat urinalysis with c & s - per hpi -culture pendingMon itor s/s.CBC, BMP in am Abdominal aortic aneurysm without rupture 29336503 I71.40 has noted AAA 5.5 cm with [...] son againcbc and bmp in am Dementia 29395973 F02.80 baseline dementia, with behaviors resolving to baseline sp treatment for uti and depakotese e abovecontt razodone 50 mg qhs and trazodone 25 mg po ammelatoni n 5mg qhs/10 increase gabapentin from 100 mg po pm to bidcontinu e supportive caremonito r for behaviorsp sych eval prnweight stable, will monitor weekly Osteoarthritis 684887049 M15.0 baseline OAsee below Chronic low back pain 27 5041781 M54.50 Currently comfortabl econt daily and prn ultram4/10 dc diclofenac dailyincre ase gabapentin to bidPRN baclofen and APAPMonito r [id number] Chandrika Vasques NP [address] [facility] [place] [address] 12/09/2024 10:53:23 12/12/2024 13:12:54 Anemia 460881854 D64.9 Hgb 7.5, s/p 1 U PRBCs 12/01 [place] [facility] staff stool dark/black , but is on Fecbc improving today12/08d c diclofenac 75 mg po qd, will [...] out for transfusio n Paroxysmal atrial fibrillation 694018500 I48.0 Off xarelto, risk > benefit4/ 0 off plavix risk >benefitme toprolol dose to 12.5 mg bid, hold for SBP< 100 (due to low BPs) recently adjustedCo ntinue to monitor for rate control Essential hypertension 33218051 I10 BP on the low side.metop rolol 12.5 mg bid, hold for SBP< 100 [facility] Recurrent falls 92665639 2 R29.6 pt with recurrent falls, last fall on 12/05 without injurieshe has poor safety awareness and high fall risk latelysupp ortive caresafety precaution smonitorPT OT eval and tx. prn Aspiration pneumonia 422 519763 J69.0 completed cefuroxime 500 mg BID on 11/30 for 4 days.Repea t CXR 12/05 with scattered RLL atelectasi s.Continue O2 via NC to keep sats >90%, currently 93% this amContinue modified dietMonito r VS. LS, s/s aspiration ,contIS with 10 reps at least tid x 10days Abdominal aortic aneurysm without rupture 51921571 I71.40 has noted AAA 5.5 cm with [...] dr watson and bmp in am Dementia 47184591 F02.80 baseline dementia, with behaviors resolving to [...] Member ID Robles Member ID Guarantor Name 12/09/2024 1 MEDICARE B-[place]: [facility] [id number] [facility] Notes Date Note Type Note Provider Name and Address Organization Details Recorded Time 12/09/2024 text/html Pt is seen today for an acute visit. PMH: dementia, PAF, CAD, history ischemic cardiomyopathy, history of CVA, hypertension, hyperlipidemia, AAA Following up in regards to a anemia and low bps.Workup: UA, and CXR unremarkable. UA contaminated. Anemia: transfused with 1 unit last week. noted 12/07 labs show hgb/hct dropping to 7/22 which is boderline and he remains on protonix, iron, and mult with iron. Due to boderline h/h and high fall risk will dc plavix, diclofenac, increase protonix and gabapentin, check cbc and bmp thursday, monitor heme test stools. carlin burks'kevin recently. family in agreement.H/H stable at 8.1, [...] codeHCP invoked 11/03/22 Chandrika Vasques NP [address] [facility], [address], [place], [address], [facility] 12/09/2024 11:11:08
--- OUTSIDE RECORDS SUMMARY | 2024-12-13 13:49 | XMS_ITS | Encounter Summary ---
Author Organization [facility] Address [address] [place] [address] Care Team Providers Care Software Team Leader Name Role Phone Cole Pete MD Primary Care Provider [phone] Encounter Details Date Type Department Care Team (Late st Contact Info) Description 08/02/[address] [facility] - Main Lab [address] [facility] [place] [address] Cole Pete MD [address] [facility] [address] [place], [address] Paroxysmal atrial fibrillation (CMS/HCC V24, CMS/HCC V28) Social [...] AM EST) WBC 8.4 4.8 - 10.8 K/[facility] LAB HEMETOLOGY METHOD 08/02/2024 10:36 AM [facility] LAB RBC 2.60(L) 4.50 - 5.50 M/mcL LAB HEMETOLOGY METHOD 08/02/2024 10:36 AM [facility] LAB Hemoglobin 7.6(L) 13.5 - 17.5 g/dL LAB HEMETOLOGY METHOD 08/02/2024 10:36 AM [facility] LAB Hematocrit 24.0(L) 42.0 - 54.0 % LAB HEMETOLOGY METHOD 08/02/2024 10:36 AM [facility] LAB MCV 91.6 79.0 - 98.0 FL LAB HEMETOLOGY METHOD 08/02/2024 10:36 AM [facility] LAB MCH 29.0 27.0 - 32.0 pcg LAB HEMETOLOGY METHOD 08/02/2024 10:36 AM [facility] LAB MCHC 31.7(L) 32.0 - 37.0 g/dL LAB HEMETOLOGY METHOD 08/02/2024 10:36 AM [facility] LAB RDW 15.8(H) 11.0 - 15.0 % LAB HEMETOLOGY METHOD 08/02/2024 10:36 AM [facility] LAB Platelets 325 130 - 400 K/mcL LAB HEMETOLOGY METHOD 08/02/2024 10:36 AM [facility] LAB MPV 10.5 7.0 - 11.0 FL LAB HEMETOLOGY METHOD 08/02/2024 10:36 AM [facility] LAB NRBC 0.0 <1.0 % LAB HEMETOLOGY METHOD 08/02/2024 10:36 AM [facility] LAB NRBC Absolute 0.00 <0.10 K/mcL LAB HEMETOLOGY METHOD 08/02/2024 10:36 AM [facility] LAB Neutrophils Relative 66.4 % LAB HEMETOLOGY METHOD 08/02/2024 10:36 AM [facility] LAB Lymphocytes Relative 19.7 % LAB HEMETOLOGY METHOD 08/02/2024 10:36 AM [facility] LAB Monocytes Relative 5.7 % LAB HEMETOLOGY METHOD 08/02/2024 10:36 AM [facility] LAB Eosinophils Relative 7.2 % LAB HEMETOLOGY METHOD 08/02/2024 10:36 AM [facility] LAB Basophils Relative 0.6 % LAB HEMETOLOGY METHOD 08/02/2024 10:36 AM [facility] LAB Immature Granulocytes Relative 0.4 % LAB HEMETOLOGY METHOD 08/02/2024 10:36 AM [facility] LAB Neutrophils Absolute 5.59 1.50 - 7.00 K/mcL LAB HEMETOLOGY METHOD 08/02/2024 10:36 AM [facility] LAB Lymphocytes Absolute 1.66 1.00 - 5.00 K/mcL LAB HEMETOLOGY METHOD 08/02/2024 10:36 AM [facility] LAB Monocytes Absolute 0.48 0.20 - 1.00 K/mcL LAB HEMETOLOGY METHOD 08/02/2024 10:36 AM [facility] LAB Eosinophils Absolute 0.61(H) 0.00 - 0.50 K/mcL LAB HEMETOLOGY METHOD 08/02/2024 10:36 AM [facility] LAB Basophils Absolute 0.05 0.00 - 0.20 K/mcL LAB HEMETOLOGY METHOD 08/02/2024 10:36 AM [facility] LAB Immature Granulocytes Absolute 0.03 0.00 - 0.03 K/mcL LAB HEMETOLOGY METHOD 08/02/2024 10:36 AM [facility] Blood Venous blood specimen / Unknown Venipuncture / Unknown 08/02/2024 7:33 AM EST 08/02/2024 10:03 AM EST us Cole Pete MD LAB BLOOD ORDERABLES Final Resul t [facility] [address] [place] [address], * (ABNORMAL) Basic metabolic panel (08/02/2024 7:33 AM EST) Sodium 142 133 - 145 mmol/L LAB CHEMISTRY METHOD 08/02/2024 10:55 AM [facility] LAB Potassium 5.1 3.5 - 5.5 mmol/L LAB CHEMISTRY METHOD 08/02/2024 10:55 AM [facility] LAB Chloride 114(H) 96 - 110 mmol/L LAB CHEMISTRY METHOD 08/02/2024 10:55 AM [facility] LAB CO2 23 21 - 32 mmol/L LAB CHEMISTRY METHOD 08/02/2024 10:55 AM [facility] LAB Anion Gap 5 3 - 11 LAB CHEMISTRY METHOD 08/02/2024 10:55 AM [facility] LAB Glucose 91 70 - 100 mg/dL LAB CHEMISTRY METHOD 08/02/2024 10:55 AM [facility] LAB BUN 21 5 - 25 mg/dL LAB CHEMISTRY METHOD 08/02/2024 10:55 AM [facility] LAB Creatinine 1.47(H) 0.70 - 1.30 mg/dL LAB CHEMISTRY METHOD 08/02/2024 10:55 AM [facility] LAB eGFR 46(L) >=60 mL/min/1. 73m2 LAB CHEMISTRY METHOD 08/02/2024 10:55 AM [facility] LAB Comment:Calculation based on the??Chronic Kidney Disease Epidemiology Collaboration (CKD-EPI) equation refit??without adjustment for race. BUN/Creatinine Ratio 14.3 LAB CHEMISTRY METHOD 08/02/2024 10:55 AM [facility] Calcium 8.4(L) 8.5 - 10.5 mg/dL LAB CHEMISTRY METHOD 08/02/2024 10:55 AM EST [facility] Blood Venous blood specimen / Unknown Venipuncture / Unknown 08/02/2024 7:33 AM EST 08/02/2024 10:03 AM EST us Cole Pete MD LAB BLOOD ORDERABLES Final Resul t [facility] [address] [place] [address], documented in this encounter Visit Diagnoses Diagnosis Paroxysmal atrial fibrillation (CMS/HCC V24, CMS/HCC V28) Atrial fibrillation documented in this encounter Care Teams Software Team Leader Relationship Specialty Start Date End Date Cole Pete MD [address] [place] [address], [phone] PCP - General Family Medicine 07/31/24 documented as of this encounter
== END 2024-12-13 12:07 | disposition home or self-care (01) ==
LOC: HO.HVS 11:11
PROVIDERS: PCP Family Medicine; Visit Provider Surgery Vascular Surgery
DX: I71.43 Infrarenal abdominal aortic aneurysm, without rupture (principal)
CPT/HCPCS: 99214

== ENCOUNTER → 2024-12-13 11:11 | Outpatient (BNVA) | payer MEDICARE, MEDICAID, SELFPAY | PROVIDERS: PCP Family Medicine; Visit Provider Surgery Vascular Surgery | DX: I71.43 Infrarenal abdominal aortic aneurysm, without rupture (principal); I25.10 Atherosclerotic heart disease of native coronary artery without angina pectoris; I25.2 Old myocardial infarction | CPT/HCPCS: 99212 ==

== ENCOUNTER 2024-12-15 21:27 | Emergency (ER) | payer MEDICARE, MEDICAID, SELFPAY ==
--- NOTE | ~2024-12-15 | XR_ITS ---
CLINICAL HISTORY: fall, seems to have pain, poor historian Pelvis and bilateral hips two views Comparison: 01/28/2022 Findings: Severe bilateral hip degenerative change. Bilateral femoral head sclerosis noted. Findings may represent avascular necrosis. Cortical fracture with collapse in right femoral head. No acute fracture noted on the left. No radiopaque foreign body noted. Impression: Bilateral femoral head avascular necrosis Cortical fracture and collapse right femoral head This document has been electronically signed by: Denis Camara MD on 12/15/2024 23:55:47
--- NOTE | ~2024-12-15 | CT_ITS ---
CLINICAL HISTORY: umwitnessed fall CT cervical spine without contrast Comparison: None Findings: Study is limited due to kyphosis. Question anterior inferior T1 corner fracture. Age-indeterminate mild C7 compression fracture. Question acute versus chronic. No other acute bony abnormality noted. Posterior alignment is normal. Moderate degenerative change. No radiopaque foreign bodies. Interstitial fibrosis bilateral lungs. Impression: Question anterior inferior T1 corner fracture Age-indeterminate mild C7 compression fracture This document has been electronically signed by: Denis Camara MD on 12/16/2024 00:38:00
--- NOTE | ~2024-12-15 | CT_ITS ---
CLINICAL HISTORY: fall, lac, poor historian CT head without contrast Comparison: 02/02/2023 Findings: No intracranial mass, midline shift, hydrocephalus, or acute hemorrhage. Moderate chronic ischemic white matter disease with volume loss. Old right periventricular and internal capsule infarct with encephalomalacia. No acute process in sinuses or mastoids. No acute bony abnormality. Impression: No acute intracranial process This document has been electronically signed by: Denis Camara MD on 12/16/2024 00:31:14
[2024-12-15 21:38] VITALS: BP 118/76; PULSE 70; O2SAT 97
[2024-12-15 21:40] VITALS: BP 123/32; PULSE 66; RESP 16; TEMP 36.7; O2SAT 96; BMI 19.1
--- NOTE | 2024-12-15 22:18 | ED.FALL ---
HPI - Fall General Chief Complaint: Fall Stated Complaint: fall, headstrike laceration on head , ebonie Time Seen by Provider: 12/15/24 21:42 Source: EMS Mode of arrival: EMS Limitations: other (Dementia) History of Present Illness ED Provider: Dr. Ana Lew HPI Narrative: Patient comes to the emergency room from [facility] in [place]. Patient had an unwitnessed fall. According to the patient, he was trying to reach down to put his shoes on and patient fell forward. Patient does have a small laceration in the forehead. To staff, when they heard the fall, they immediately went to see the patient and he was awake and alert. Patient has history of dementia and is unable to give good history. Patient states that he does not have any pain, however his history is unreliable Related Data Home Medications ?Medication ?Instructions ?Recorded ?Confirmed cholecalciferol (vitamin D3) 25 25 mcg PO DAILY 10/19/22 11/30/24 mcg (1,000 unit) tablet (Vitamin D3) terazosin 5 mg capsule 1 cap PO BEDTIME 10/19/22 11/30/24 acetaminophen 325 mg tablet 650 mg PO Q4H PRN pain or fever 02/02/23 11/30/24 bisacodyl 10 mg rectal suppository 10 mg VA DAILY PRN Constipation 02/02/23 11/30/24 docusate sodium 100 mg capsule 200 mg PO DAILY 02/02/23 11/30/24 magnesium hydroxide 400 mg/5 mL 30 ml PO DAILY PRN Constipation 02/02/23 11/30/24 oral suspension (Milk of Magnesia) naloxone 0.4 mg/mL injection 0.4 mg subcut Q3M PRN Opiate 02/02/23 11/30/24 solution Reversal sennosides 8.6 mg tablet (senna) 17.2 mg PO BEDTIME PRN Constipation 02/02/23 11/30/24 sodium phosphates 19 gram-7 118 ml VA DAILY PRN Constipation 02/02/23 11/30/24 gram/118 mL enema (Fleet Enema) baclofen 10 mg tablet 10 mg PO Q8H PRN Spasms 11/21/24 11/30/24 bismuth subsalicylate 525 mg/15 mL 1,050 mg PO Q6H PRN GI Upset 11/21/24 11/30/24 oral suspension calcium 250 mg (as 1 tab PO Q12H 11/21/24 11/30/24 carbonate)-vitamin D3 3.125 mcg (125 unit) tablet diclofenac sodium 75 mg 75 mg PO DAILY 11/21/24 11/30/24 tablet,delayed release divalproex 250 mg tablet,delayed 250 mg PO DAILY 11/21/24 11/30/24 release ferrous sulfate 325 mg (65 mg 325 mg PO DAILY 11/21/24 11/30/24 iron) tablet gabapentin 100 mg capsule 100 mg PO BEDTIME 11/21/24 11/30/24 guaifenesin 100 mg/5 mL oral liquid 200 mg PO Q6H PRN Cough/Congestion 11/21/24 11/30/24 loperamide 2 mg tablet 2 mg PO Q6H PRN Loose Stool 11/21/24 11/30/24 melatonin 5 mg tablet 5 mg PO BEDTIME Insomnia 11/21/24 11/30/24 menthol 10 mg lozenges 10 mg mucous membrane Q3H PRN Sore 11/21/24 11/30/24 Throat metoprolol tartrate 25 mg tablet 25 mg PO BID 11/21/24 11/30/24 mirtazapine 15 mg tablet 15 mg PO BEDTIME 11/21/24 11/30/24 multivitamin 1 tab PO DAILY 11/21/24 11/30/24 omega 3 350 mg-dha 235 mg-epa 90 2 cap PO DAILY 11/21/24 11/30/24 mg-fish oil 597 mg capsule,delay rel (Baxter-3) ondansetron 4 mg disintegrating 4 mg PO Q6H PRN Nausea And Vomiting 11/21/24 11/30/24 tablet pantoprazole 20 mg tablet,delayed 20 mg PO DAILY@0630 11/21/24 11/30/24 release rivaroxaban 15 mg tablet (Xarelto) 15 mg PO DAILY@1800 11/21/24 11/30/24 tramadol 50 mg tablet 50 mg PO DAILY Pain (Scale Score 11/21/24 11/30/24 4-6) tramadol 50 mg tablet 50 mg PO Q4H PRN Pain 11/21/24 11/30/24 trazodone 50 mg tablet 25 mg PO DAILY 11/21/24 11/30/24 trazodone 50 mg tablet 50 mg PO BEDTIME 11/21/24 11/30/24 ascorbic acid (vitamin C) 500 mg 500 mg PO DAILY 11/30/24 11/30/24 tablet (Vitamin C) Previous Rx's ?Medication ?Instructions ?Recorded clopidogrel 75 mg tablet 75 mg PO DAILY 90 days #90 tabs 08/15/21 folic acid 1 mg tablet 1 mg PO DAILY #90 tabs 12/24/21 atorvastatin 40 mg tablet 40 mg PO BEDTIME 30 days #30 tabs 02/05/23 cefuroxime axetil 250 mg tablet 250 mg PO BID #20 tabs 12/16/24 Allergies Allergy/AdvReac Type Severity Reaction Status Date / Time No Known Allergies Allergy Verified 12/15/24 21:42 [No Known Allergies*] Review of Systems Review of Systems: Yes Unobtainable due to mental status [facility] Past Medical History Medical History Corneal abrasion, left Compression fracture of L3 vertebra Compression fracture of L3 vertebra NSTEMI (non-ST elevated myocardial infarction) Left rib fracture Rotator cuff dysfunction Anxiety and depression Ulnar neuropathy Vertebral fracture Acetabular fracture Interstitial lung disease Tubular adenoma of colon Coronary artery disease GERD (gastroesophageal reflux disease) Hypertension Abdominal aortic aneurysm CVA (cerebral vascular accident) Hypercholesterolemia Paroxysmal A-fib Surgical History S/P cardiac catheterization History of bursectomy History of bilateral cataract extraction History of hemorrhoidectomy History of appendectomy Family History Family History Father Medical history unknown Mother Medical history unknown Social History Social History Household Members: Other Household Members Other:: real care Housing: Senior Care Unable to assess alcohol history related to: Unable to respond Alcohol intake: never Patient Tobacco Use Status: Never used Tobacco e-Cigarette/Vaping Use: Never Used Second Hand Smoke Exposure: No Advance Directives: Yes Advance Directives on File: Yes Advance Directives Date on File: 02/02/23 service: No Current occupational status: retired Cognitive needs: No Hearing needs: Yes Vision needs: Yes Physical Exam Vital Signs: Vital Signs: Last Vital Signs Temp 98.0 F 12/15/24 21:40 Pulse 66 04/17/25 21:40 Resp 16 12/15/24 21:40 BP 123/32 L 12/15/24 21:40 Pulse Ox 96 12/15/24 21:40 O2 Del Method Room Air 12/15/24 21:40 BMI result Body Mass Index 19.1 Const: Other: Appearance: Alert. Oriented x1. No acute distress. Eyes: Pupils equal, round and reactive to light. ENT: Pharynx normal. Neck: C-spine in place, no palpable step-offs, does not seem to have any pain to palpation over C-spine CVS: Normal heart rate and rhythm. Pulses normal. Normal S1 and S2 Respiratory: No respiratory distress. Breath sounds normal. No Wheezing. No rales Abdomen: Soft and nontender. No rigidity. No distention. Back: No obvious deformity, no palpable step-offs Skin: Skin warm and dry. Normal skin color. Normal skin turgor. Extremities: No lower extremity edema. No Lacerations. No Rash able to flex and extend both shoulders elbows wrists Neuro: Oriented X 1. No motor deficit. No sensory deficit. Moving all extremities. No slurred speech. CN 2 through 12 grossly intact Psych: calm, cooperative Course Course Course Narrative: Patient was recently seen here, 2 weeks ago. Patient known to be on Xarelto for atrial fibrillation. Patient was recently diagnosed with a 5.5 infrarenal abdominal aortic aneurysm with mural thrombus. Patient is already on Xarelto. Vascular surgery was consulted, patient will follow-up in an outpatient setting. Patient denies any abdominal flank or back pain. Medical Decision Making Medical Decision Making MDM Narrative: Patient's hematology and chemistry are at baseline for the patient Patient has a UTI, given cefuroxime p.o.. Cervical spine CT shows a question anterior T1 corner fracture and an age indeterminate mild C7 compression fracture. Patient is poor historian. On physical exam and palpation of the cervical and thoracic spine, patient states that he has no pain at all and feels comfortable. This is a likely old fractures. Patient is able to move his extremities with no pain. Patient is able to abduct his arms to 180 degrees and states he has no pain in his arms back or neck When we touch patient's laceration, patient is able to tell us that he has pain there. Head CT does not show any acute abnormality. X-rays of the hip shows bilateral femoral head avascular necrosis and cortical fracture and collapse of the right femoral head. This is likely chronic for the patient. Patient states that he has no pain in his legs or hips laceration in the forehead does not need stitches, skin glue was applied Patient is bed-bound, has severe chronic changes in both hips, worse in the right side Differential Diagnosis Differential Diagnoses: The differential diagnosis associated with the presentation includes (fall, intracranial bleed, cervical spine injury) Admission/Observation Consideration of admission/observation: Escalation of care including admission/observation considered (Given patient's age, past medical history and findings, observation has been considered) Lab Data MDM Lab Attestation statement: I reviewed the patient's lab results. 12/15/24 23:49 12/15/24 23:49 Labs: Lab Results 12/15/24 Range/Units 23:49 WBC 10.9 H (4.8-10.8) X10*3/uL RBC 2.88 L (4.60-5.80) X10*6/uL Hgb 8.6 L (14.0-18.0) g/dl Hct 26.0 L D (42.0-52.0) % MCV 90.3 (80.0-98.0) fL MCH 29.9 (27.0-33.0) pg MCHC 33.1 (31.0-36.0) g/dl RDW 16.4 H (11.0-16.0) % Plt Count 260 D (160-400) X10*3/uL MPV 10.0 (9.4-12.4) fL Immature Gran % (Auto) 0.6 H (0.0-0.4) % Neut % (Auto) 72.0 (45-73) % Lymph % (Auto) 16.1 L (20-40) % [place] % (Auto) 7.0 (2-11) % Eos % (Auto) 3.7 (0-4) % Baso % (Auto) 0.6 (0-2) % Lymph # (Auto) 1.8 (1.2-4.9) X10*3/uL [place] # (Auto) 0.8 (0.1-1.2) X10*3/uL Eos # (Auto) 0.4 (0.0-0.4) X10*3/uL Baso # (Auto) 0.1 (0.0-0.2) X10*3/uL Abs Immat Gran (auto) 0.07 H (0.00-0.03) X10*3/uL Absolute Neuts (auto) 7.8 (2.0-8.3) x10*3/uL Absolute Nucleated RBC 0.000 (0.0-0.012) X10*3/uL Nucleated RBC % (auto) 0.0 (0.0-0.2) /100WBC Sodium 141 (135-145) mmol/L Potassium 4.1 (3.3-5.1) mmol/L Chloride 108 (96-108) mmol/L Carbon Dioxide 25 (22-29) mmol/L Anion Gap 12 (12-20) BUN 16 (9-16) mg/dL Creatinine 1.03 (0.5-1.4) mg/dL Estim Creat Clear Calc 41.0 Estimated GFR > 60 Random Glucose 107 (60-115) mg/dL Calcium 8.0 L (8.4-10.2) mg/dL Urine Color Yellow Urine Appearance Turbid Urine pH 5.5 (5.0-9.0) Ur Specific [place] 1.025 (1.005-1.025) Urine Protein 30 (1+) H (Neg-Trace) mg/dL Urine Glucose (UA) Negative (Negative) mg/dL Urine Ketones Trace (Negative) mg/dL Urine Blood Moderate (2+) H (Negative) Urine Nitrite Negative (Negative) Ur Leukocyte Esterase Large (3+) H (Negative) Urine RBC 6-10 H (0-2) /HPF Urine WBC >50 H (0-5) /HPF Urine WBC Clumps Present Ur Squamous Epith Cells 0-2 (0-2) /HPF Urine Bacteria 4+ (None Seen) Hyaline Casts 3-5 (0-2) /LPF Independent Interpretation I performed an independent interpretation of an: Plain X-Ray and CT Scan Radiology Impression Discussion of test interpretation with radiology: I have reviewed the radiologist's reading. Radiologist Impression: No intracranial mass, midline shift, hydrocephalus, or acute hemorrhage. Moderate chronic ischemic white matter disease with volume loss. Old right periventricular and internal capsule infarct with encephalomalacia. No acute process in sinuses or mastoids. No acute bony abnormality. Impression: No acute intracranial process Question anterior inferior T1 corner fracture. Age-indeterminate mild C7 compression fracture. Question acute versus chronic. No other acute bony abnormality noted. Posterior alignment is normal. Moderate degenerative change. No radiopaque foreign bodies. Interstitial fibrosis bilateral lungs. Discharge Plan Discharge Clinical Impression: Fall, Acute UTI, Avascular necrosis of bones of both hips Patient Disposition: Home, Self-Care Instructions: Fall Prevention for Older Adults (ED), Urinary Tract Infection in Older Adults (ED) Additional Instructions: Please follow-up with your primary care physician tomorrow. If you have any worsening or new symptoms, please return to the emergency room or call 911 Prescriptions: New cefuroxime axetil 250 mg tablet 250 mg PO BID Qty: 20 0RF No Action clopidogrel 75 mg tablet 75 mg PO DAILY 90 Days Qty: 90 3RF folic acid 1 mg tablet 1 mg PO DAILY Qty: 90 1RF terazosin 5 mg capsule 1 cap PO BEDTIME cholecalciferol (vitamin D3) [Vitamin D3] 25 mcg (1,000 unit) Tablet 25 mcg PO DAILY sennosides [senna] 8.6 mg Tablet 17.2 mg PO BEDTIME PRN (Reason: Constipation) acetaminophen 325 mg Tablet 650 mg PO Q4H PRN (Reason: pain or fever) naloxone 0.4 mg/mL Solution 0.4 mg SUBCUT Q3M PRN (Reason: Opiate Reversal) Rx Instructions: NTExceed 10 mg total dose/episode magnesium hydroxide [Milk of Magnesia] 400 mg/5 mL Suspension 30 ml PO DAILY PRN (Reason: Constipation) bisacodyl 10 mg Suppository 10 mg VA DAILY PRN (Reason: Constipation) Fleet Enema 19-7 gram/118 mL Enema 118 ml VA DAILY PRN (Reason: Constipation) docusate sodium 100 mg Capsule 200 mg PO DAILY atorvastatin 40 mg Tablet 40 mg PO BEDTIME 30 Days Qty: 30 0RF multivitamin Tablet 1 tab PO DAILY divalproex 250 mg tablet,delayed release (DR/EC) 250 mg PO DAILY trazodone 50 mg Tablet 50 mg PO BEDTIME trazodone 50 mg Tablet 25 mg PO DAILY loperamide 2 mg Tablet 2 mg PO Q6H MDD 8mg PRN (Reason: Loose Stool) Rx Instructions: administer after each loose stool until symptoms controlled; do not exceed 8 mg per 24 hrs tramadol 50 mg tablet 50 mg PO Q4H PRN (Reason: Pain) guaifenesin 100 mg/5 mL Liquid 200 mg PO Q6H PRN (Reason: Cough/Congestion) pantoprazole 20 mg tablet,delayed release (DR/EC) 20 mg PO DAILY@0630 menthol 10 mg Lozenge 10 mg MUCOUS MEMBRANE Q3H PRN (Reason: Sore Throat) baclofen 10 mg tablet 10 mg PO Q8H PRN (Reason: Spasms) ferrous sulfate 325 mg (65 mg iron) Tablet 325 mg PO DAILY diclofenac sodium 75 mg tablet,delayed release (DR/EC) 75 mg PO DAILY mirtazapine 15 mg tablet 15 mg PO BEDTIME gabapentin 100 mg capsule 100 mg PO BEDTIME ondansetron 4 mg Tablet,Disintegrating 4 mg PO Q6H PRN (Reason: Nausea And Vomiting) bismuth subsalicylate 525 mg/15 mL Suspension 1,050 mg PO Q6H PRN (Reason: GI Upset) Rx Instructions: do not exceed 4 doses per 24 hrs melatonin 5 mg Tablet 5 mg PO BEDTIME Xarelto 15 mg tablet 15 mg PO DAILY@1800 Baxter-3 350 mg-235 mg- 90 mg-597 mg Capsule,Delayed Release(Dr/Ec) 2 cap PO DAILY tramadol 50 mg tablet 50 mg PO DAILY metoprolol tartrate 25 mg tablet 25 mg PO BID Protocol: Hold for SBP/HR < HOLD for SBP < : 90 HOLD for HR < : 60 calcium carbonate-vitamin D3 250 mg-3.125 mcg (125 unit) tablet 1 tab PO Q12H ascorbic acid (vitamin C) [Vitamin C] 500 mg Tablet 500 mg PO DAILY Print Language: Unable To Collect
--- NOTE | 2024-12-15 23:15 | PC.NURSE ---
pt states he can give a urine and waiting for results.
[2024-12-15 23:53] LABS: MANUAL DIFF FLAG NO
[2024-12-15 23:55] LABS: Basophils Absolute Auto 0.1 X10*3/uL (0.0-0.2); Basophils Percent Auto 0.6 % (0-2); Eosinophils Absolute Auto 0.4 X10*3/uL (0.0-0.4); Eosinophils Percent Auto 3.7 % (0-4); Hemoglobin 8.6 g/dl (14.0-18.0); Imm Gran Abs Auto 0.07 X10*3/uL (0.00-0.03); Imm Gran Pct Auto 0.6 % (0.0-0.4); Lymphocytes Absolute Auto 1.8 X10*3/uL (1.2-4.9); Lymphocytes Percent Auto 16.1 % (20-40); Mean Corpuscular HGB Conc 33.1 g/dl (31.0-36.0); Mean Corpuscular Hemoglobin 29.9 pg (27.0-33.0); Mean Corpuscular Volume 90.3 fL (80.0-98.0); Monocytes Absolute Auto 0.8 X10*3/uL (0.1-1.2); Neutrophils Absolute Auto 7.8 x10*3/uL (2.0-8.3); Platelet Count 260 X10*3/uL (160-400); Red Blood Count 2.88 X10*6/uL (4.60-5.80); Red Cell Distribution Width 16.4 % (11.0-16.0); White Blood Count 10.9 X10*3/uL (4.8-10.8)
[2024-12-15 23:58] LABS: Appearance Urine Turbid; Color Urine Yellow; Glucose Urine UA Negative (Negative); Leukocyte Esterase Urine Large (3+) (Negative); Nitrite Urine Negative (Negative); PH 5.5 (5.0-9.0); Specific Gravity - Urine 1.025 (1.005-1.025); UMIC TRIGGER UACC YES; Urine Blood Moderate (2+) (Negative); Urine Ketones Trace mg/dL (Negative); Urine Protein 30 (1+) mg/dL (Neg-Trace)
--- NOTE | 2024-12-16 | PC.NURSE ---
pt walking around in his room steady on his feet and steady gait.
[2024-12-16 00:09] LABS: Bacteria Urine 4+ (None Seen); Squamous Epithelial Cell Urine 0-2 /HPF (0-2); UACC Culture Trigger YES; WBC Clumps Urine Present; WBC Urine >50 /HPF (0-5)
[2024-12-16 00:16] LABS: Anion Gap 12 (12-20); Blood Urea Nitrogen 16 mg/dL (9-16); Carbon Dioxide 25 mmol/L (22-29); Chloride 108 mmol/L (96-108); Estimated Glomerular Filt Rate > 60; Glucose Random 107 mg/dL (60-115); Potassium 4.1 mmol/L (3.3-5.1); Sodium 141 mmol/L (135-145)
[2024-12-16] MEDS: cefuroxime axetiL 250 MG TABLET PO (01:33)
[2024-12-16 01:37] VITALS: BP 000/00; PULSE 94; RESP 16; TEMP 36.6
[2024-12-16 01:47] VITALS: BP 000/00; PULSE 94; RESP 16; TEMP 36.6
--- NOTE | 2024-12-16 01:53 | PC.NURSE ---
call placed to [facility] pt going back.
[2024-12-16 01:56] VITALS: BP 000/00; PULSE 94; RESP 16; TEMP 36.6; O2SAT 88
== END 2024-12-16 01:59 | disposition home or self-care (01) ==
PROVIDERS: Emergency Provider Emergency Medicine; PCP Family Medicine
DX: N39.0 Urinary tract infection, site not specified (principal); M87.852 Other osteonecrosis, left femur; M87.851 Other osteonecrosis, right femur; I10 Essential (primary) hypertension; E78.00 Pure hypercholesterolemia, unspecified; I48.0 Paroxysmal atrial fibrillation; Z86.73 Personal history of transient ischemic attack (TIA), and cerebral infarction without residual deficits; Z79.899 Other long term (current) drug therapy; Z79.02 Long term (current) use of antithrombotics/antiplatelets; Z79.01 Long term (current) use of anticoagulants
CPT/HCPCS: 36415; 51701; 70450; 72125; 73521; 80048; 81001; 85025; 87086; 87088; 87186; 99284

== ENCOUNTER → 2024-12-15 22:23 | Outpatient (BNV) | payer MEDICARE, MEDICAID, SELFPAY | PROVIDERS: Emergency Provider Emergency Medicine; PCP Family Medicine; Visit Provider Radiology Diagnostic Radiology | DX: S19.9XXA Unspecified injury of neck, initial encounter (principal); S72.001A Fracture of unspecified part of neck of right femur, initial encounter for closed fracture; S72.051A Unspecified fracture of head of right femur, initial encounter for closed fracture; W19.XXXA Unspecified fall, initial encounter | CPT/HCPCS: 70450; 72125; 73521 ==